=== PATIENT | male | born 1950 | race Caucasian/White ===

== ENCOUNTER → 2019-09-11 09:00 | Outpatient (BNVA) | payer MEDICARE, SELFPAY | PROVIDERS: Family Provider Family Medicine; Visit Provider Nurse Practitioner Family | DX: I10 Essential (primary) hypertension (principal); F33.0 Major depressive disorder, recurrent, mild | CPT/HCPCS: 80053; 84439; 84443 ==

== ENCOUNTER → 2020-05-10 09:27 | Outpatient (BNVA) | payer MEDICARE, SELFPAY | PROVIDERS: Family Provider Family Medicine; Visit Provider Nurse Practitioner Family | DX: I10 Essential (primary) hypertension (principal); E78.5 Hyperlipidemia, unspecified | CPT/HCPCS: 80053; 80061 ==

== ENCOUNTER → 2021-01-27 08:41 | Outpatient (BNVA) | payer MEDICARE, SELFPAY | PROVIDERS: Family Provider Family Medicine; PCP Nurse Practitioner Family; Visit Provider Nurse Practitioner Family | DX: I10 Essential (primary) hypertension (principal); E78.5 Hyperlipidemia, unspecified; F33.0 Major depressive disorder, recurrent, mild | CPT/HCPCS: 80053; 80061 ==

== ENCOUNTER → 2021-06-22 00:01 | Outpatient (BNVA) | payer MEDICARE, SELFPAY | PROVIDERS: Family Provider Family Medicine; PCP Nurse Practitioner Family; Visit Provider Nurse Practitioner Family | DX: I10 Essential (primary) hypertension (principal); K21.9 Gastro-esophageal reflux disease without esophagitis; F33.0 Major depressive disorder, recurrent, mild; E78.5 Hyperlipidemia, unspecified | CPT/HCPCS: 80053 ==

== ENCOUNTER → 2022-03-22 09:30 | Outpatient (BNVA) | payer MEDICARE, SELFPAY | PROVIDERS: Family Provider Family Medicine; PCP Nurse Practitioner Family; Visit Provider Nurse Practitioner Family | DX: I10 Essential (primary) hypertension (principal); E78.5 Hyperlipidemia, unspecified; F33.0 Major depressive disorder, recurrent, mild; K21.9 Gastro-esophageal reflux disease without esophagitis | CPT/HCPCS: 80053; 80061 ==

== ENCOUNTER 2024-03-04 21:37 | Emergency (ER) | payer MEDICARE, MEDICAID, SELFPAY ==
[2024-03-04 21:37] VITALS: BP 154/82; PULSE 110; RESP 16; TEMP 36.3; O2SAT 95
--- NOTE | 2024-03-04 21:56 | ED_ITS ---
HPI - Headache General: Chief Complaint: Headache Stated Complaint: dental pain Time Seen by Provider: 03/04/24 21:39 History of Present Illness: 73-year-old man with history of hyperten moustapha, hyperlipidemia and dental surgery yesterday presents emergency room with dental pain and a severe headache. He says he used to have migraines and this is similar to that. He is in very severe pain and crying. No focal motor deficits. No altered mental status. Related Data Home Medications Medication Instructions Recorded Confirmed aspirin 325 mg tablet 325 mg PO DAILY 08/11/19 09/20/22 Previous Rx's Medication Instructions Recorded cyclobenzaprine 10 mg tablet 10 mg PO TID PRN muscle spasm #30 08/11/19 tabs nitroglycerin 0.4 mg sublingual 0.4 mg sublingual Q5M PRN CAD #20 04/19/20 tablet tabs atorvastatin 40 mg tablet 40 mg PO DAILY #90 tabs 03/22/22 citalopram 20 mg tablet 20 mg PO DAILY #90 tabs 03/22/22 lisinopril 10 mg tablet 10 mg PO DAILY #90 tabs 03/22/22 metoprolol tartrate 50 mg tablet See Rx Instructions .Route 12/07/22 .COMPLEX #60 tabs pantoprazole 20 mg tablet,delayed See Rx Instructions .Route 12/07/22 release .COMPLEX #90 tabs hydrocodone 5 mg-acetaminophen 325 1 tab PO Q8H PRN pain #14 tabs 03/04/24 mg tablet polyethylene glycol 3350 17 17 g PO DAILY #510 grams 03/04/24 gram/dose oral powder (Miralax) Allergies Allergy/AdvReac Type Severity Reaction Status Date / Time No Known Allergies Allergy Verified 09/20/22 07:45 Review of Systems Narrative: Constitutional symptoms: Negative except as documented in HPI. Skin symptoms: Negative except as documented in HPI. Eye symptoms: Negative except as documented in HPI. ENMT symptoms: Negative except as documented in HPI. Respiratory symptoms: Negative except as documented in HPI. Cardiovascular symptoms: Negative except as documented in HPI. Gastrointestinal symptoms: Negative except as documented in HPI. Genitourinary symptoms: Negative except as documented in HPI. Musculoskeletal symptoms: Negative except as documented in HPI. Neurologic symptoms: Negative except as documented in HPI. Psychiatric symptoms: Negative except as documented in HPI. Endocrine symptoms: Negative except as documented in HPI. PFSH ED PFSH: Medical History CAD (coronary artery disease) Depression GERD (gastroesophageal reflux disease) WIYOT (hard of hearing) Hx of myocardial infarction Hyperlipidemia Hypertension Surgical History Hx of appendectomy Hx of heart artery stent Family History Father No problems noted. Mother Cancer stomach Social History Smoking and tobacco/nicotine status: current every day tobacco/nicotine user cigarettes [ Other cigarette details: 2 to 3 packs a week] Alcohol intake: current Alcohol intake frequency: few times a month Physical Exam Narrative: EXAM NARRATIVE: General: Alert, patient appears like he is in quite a bit of pain Skin: warm and dry Head: Normocephalic Neck: Trachea midline Eye: Extraocular movements are intact. Ears, nose, mouth and throat: Oral mucosa moist Respiratory: Respirations are non-labored Musculoskeletal: Normal ROM Neurological: Alert and oriented, No focal neurological deficit observed. Psychiatric: Cooperative, tearful from pain Course Vital Signs: Vital signs: Vital Signs Temperature 97.4 F L 03/04/24 21:37 Pulse Rate 110 H 03/04/24 21:37 Respiratory Rate 16 03/04/24 23:10 Blood Pressure 154/82 03/04/24 21:37 Pulse Oximetry 94 03/04/24 23:10 Oxygen Delivery Me thod Room Air 03/04/24 21:37 MDM - Headache Medical Decision Making CT head: No acute intracranial process. no intracranial hemorrhage, no evidence of infarct. no evidence of acute fracture.This was reviewed and interpreted by myself the ER physician. Assessment and plan: Migraine headache . Dental pain ? Dilaudid, oxycodone, Reglan, Norflex, Zofran and fluids. - Discharged home - Discussed plan with patient. Answered any questions. - Evaluation and treatment of this problem were appropriate in the emergency setting. Lab Data Radiology Impressions Head CT 03/04/24 22:43 IMPRESSION: No acute intracranial findings. All radiology interpretation(s) finalized by discharge Discharge Plan Discharge Patient Disposition: Home Clinical Impression: Migraine, Post-operative pain Condition: Stable Prescriptions: New hydrocodone-acetaminophen 5-325 mg tablet 1 tab PO Q8H PRN (Reason: pain) Qty: 14 0RF Rx Instructions: Take 1/2 to 1 tab every 8 hours as needed for pain Miralax 17 gram/dose powder 17 g PO DAILY Qty: 510 0RF Rx Instructions: Take 1 scoop daily while taking pain medications. No Action aspirin 325 mg tablet 325 mg PO DAILY cyclobenzaprine 10 mg tablet 10 mg PO TID PRN (Reason: muscle spasm) Qty: 30 2RF nitroglycerin 0.4 mg tablet, sublingual 0.4 mg SUBLINGUAL Q5M PRN (Reason: CAD) Qty: 20 0RF atorvastatin 40 mg tablet 40 mg PO DAILY Qty: 90 1RF citalopram 20 mg tablet 20 mg PO DAILY Qty: 90 1RF lisinopril 10 mg tablet 10 mg PO DAILY Qty: 90 1RF pantoprazole 20 mg tablet,delayed release (DR/EC) See Rx Instructions .ROUTE .COMPLEX Qty: 90 0RF Dose Instruction: Take 1 tablet by mouth once daily Rx Instructions: Take 1 tablet by mouth once daily Pt needs an appt for more refills metoprolol tartrate 50 mg tablet See Rx Instructions .ROUTE .COMPLEX Qty: 60 0RF Dose Instruction: Take 1 tablet by mouth twice daily Rx Instructions: Take 1 tablet by mouth twice daily Pt needs an appt for more refills Discharge Orders: Discharge ED (Routine); Ordered 03/04/24 Ordered By: Tess Vasquez Referrals: Dimple Ybarra FNP [Primary Care Provider] - Edy Urena [Family Provider] - Discharge Diet: Advance as tolerated Discharge Activity: Increase activity as tolerated Patient Instructions: Opioid Safety, Pain Management Activity Restrictions/Additional Instructions: Thank you for choosing [facility] for your healthcare needs today. Please realize this is an emergency room and that we are providing you with a medical screening exam and this may not be complete and all inclusive of all the testing and or work up that you may need to determine your ailment or severity of your illness. You have been screened and evaluated and felt safe for discharge. Health conditions do change or evolve sometimes and as such it is important that you follow up with your Primary Doctor to be re checked, 3-5 days is a general good time frame for follow up. 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
[2024-03-04 22:17] VITALS: RESP 16; O2SAT 98
[2024-03-04] MEDS: oxyCODONE-APAP 5-325 mg Tablet 1 TAB PO (22:17)
[2024-03-04] MEDS: ondansetron 2 mg/ML SDV 2 mL 4 MG IVP (22:18)
[2024-03-04] MEDS: metoclopramide 5 mg/mL SDV 2 mL 10 MG IVP (22:18)
[2024-03-04] MEDS: diphenhydrAMINE 50 mg/mL SDV 1mL 25 MG IVP (22:19)
[2024-03-04] MEDS: sodium chloride 0.9% 1,000 ML 999 ML IV (22:23)
--- NOTE | 2024-03-04 22:43 | CTR_ITS ---
PROCEDURE INFORMATION: Exam: CT Head Without Contrast Exam date and time: 03/04/2024 10:49 PM Age: 73 years old Clinical indication: Pain; Headache; Additional info: Worst headache of life TECHNIQUE: Imaging protocol: Computed tomography of the head without contrast. Radiation optimization: All CT scans at this facility use at least one of these dose optimization techniques: automated exposure control; mA and/or kV adjustment per patient size (includes targeted exams where dose is matched to clinical indication); or iterative reconstruction. COMPARISON: No relevant prior studies available. RADIATION DOSE METRICS: Total DLP (mGy-cm): 1266.73 FINDINGS: Brain: No acute intracranial hemorrhage, mass effect or midline shift. Encephalomalacia at the right parietal, temporal and occipital regions. No evidence of acute transcortical infarct. White matter hypodensities most likely from chronic microangiopathy. Cerebral ventricles: Ex vacuo dilatation of the ventricles due to volume loss. Paranasal sinuses: Visualized sinuses are unremarkable. No fluid levels. Mastoid air cells: Visualized mastoid air cells are well aerated. Bones: No acute bony findings. Soft tissues: Unremarkable. CT/CT head wo con* [id number] IMPRESSION: No acute intracranial findings.
[2024-03-04 23:10] VITALS: RESP 16; O2SAT 94
[2024-03-04] MEDS: orphenadrine 30 mg/mL Inj 2 mL IVP (23:10)
[2024-03-04] MEDS: HYDROmorphone 1 mg/mL INJ 1 mL IVP (23:10)
[2024-03-05 00:20] VITALS: BP 151/90; PULSE 107; O2SAT 91
== END 2024-03-05 00:21 | disposition home or self-care (01) ==
PROVIDERS: Emergency Provider Emergency Medicine; Family Provider Family Medicine; PCP Nurse Practitioner Family
DX: G43.909 Migraine, unspecified, not intractable, without status migrainosus (principal); G89.18 Other acute postprocedural pain; Z79.82 Long term (current) use of aspirin; F17.210 Nicotine dependence, cigarettes, uncomplicated; I25.10 Atherosclerotic heart disease of native coronary artery without angina pectoris; I25.2 Old myocardial infarction; E78.5 Hyperlipidemia, unspecified; I10 Essential (primary) hypertension
CPT/HCPCS: 70450; 96361; 96374; 96375; 99285; J1170; J1200; J2360; J2405; J2765; J7030

== ENCOUNTER 2025-03-31 15:47 | Observation (INO) | payer MEDICARE, SELFPAY ==
[2025-03-31] VITALS (21 sets, daily range): BP systolic 76–96; BP diastolic 53–72; PULSE 65–94; RESP 14–31; TEMP 36.4; O2SAT 92–99; BMI 21.7
--- NOTE | 2025-03-31 15:51 | ECG_ITS ---
Secured Mail Test Date: 2025-03-31 Pat Name: Philippe Dahl Department: Room: Gender: Male Spinning Lathe Operator: : 1950 Requested By: Tess Light Order Number: [id number] Dorman MD: MAGDALENA FREEMAN Measurements Intervals [place] Rate: 63 P: 262 RI: 203 QRS: 124 QRSD: 113 T: 181 QT: 454 QTc: 466 Interpretive Statements ELECTRONIC ATRIAL PACEMAKER RIGHT AXIS DEVIATION [QRS AXIS > 100] LOW QRS VOLTAGE IN EXTREMITY LEADS [QRS DEFLECTION < 0.5 mV IN LIMB LEADS] ANTEROSEPTAL MYOCARDIAL INFARCTION , OF INDETERMINATE AGE [40+ ms Q WAVE IN V1-V4] No previous ECG available for comparison Electronically Signed On 04-01-2025 16:47:22 CDT by MAGDALENA FREEMAN [email or web address]
--- NOTE | 2025-03-31 15:51 | XRR_ITS ---
PROCEDURE INFORMATION: Exam: XR Chest Exam date and time: 03/31/2025 3:56 PM Age: 74 years old Clinical indication: Other: Weakness; Prior surgery; Surgery date: 6+ months; Surgery type: Open heart pacer TECHNIQUE: Imaging protocol: Radiologic exam of the chest. Views: 1 view. COMPARISON: No relevant prior studies available. FINDINGS: Tubes, catheters and devices: Dual lead cardiac pacer. Status post median sternotomy and CABG. Lungs: See Pleural spaces finding. Pleural spaces: Mild left basilar opacity with small left pleural effusion. Heart/Mediastinum: Unremarkable. No cardiomegaly. Bones/joints: See Tubes, catheters and devices finding. XR/XR chest 1V portable [id number] IMPRESSION: Left basilar opacity with small left pleural effusion. Findings could represent pneumonia.
--- NOTE | 2025-03-31 15:51 | ED_ITS ---
HPI - Syncope 2 General: Chief Complaint: Arrhythmia/Palpitations Stated Complaint: Pacemaker went off w/syncope Time Seen by Provider: 03/31/25 15:47 History of Present Illness: 74-year-old man with a history of pacema ker placement, hyperlipidemia, chronic low blood pressure who presents emergency room after having a near syncopal episode. He was getting out of his car at [facility] and suddenly became very lightheaded and went down. He says he caught himself with his hand but he does not remember after that till he woke up. EMS reports his blood pressure was low when they picked him up. He does not have any altered mental status or focal motor deficits. He does report he has had a lot of cough and its gotten worse recently he has been taking some Mucinex. No known fever. No chest pain. He says when he went down he felt like he had a shock from his pacemaker. Related Data Home Medications ?Medication ?Instructions ?Recorded ?Confirmed aspirin 325 mg tablet 325 mg PO DAILY 08/11/19 Previous Rx's ?Medication ?Instructions ?Recorded cyclobenzaprine 10 mg tablet 10 mg PO TID PRN muscle s pasm #30 08/11/19 tabs nitroglycerin 0.4 mg sublingual 0.4 mg sublingual Q5M PRN CAD #20 04/19/20 tablet tabs atorvastatin 40 mg tablet 40 mg PO DAILY #90 tabs 02/23 03/15 citalopram 20 mg tablet 20 mg PO DAILY #90 tabs 02/23 03/15 lisinopril 10 mg tablet 10 mg PO DAILY #90 tabs 02/23 03/15 metoprolol tartrate 50 mg tablet See Rx Instructions . Route 12/07/22 .COMPLEX #60 tabs pantoprazole 20 mg tablet,delayed See Rx Instructions .Route 12/07/22 release .COMPLEX #90 tabs hydrocodone 5 mg-acetaminophen 325 1 tab PO Q8H PRN pa in #14 tabs 03/04/24 mg tablet polyethylene glycol 3350 17 17 g PO DAILY #510 grams 0 03/04/24 gram/dose oral powder (Miralax) Allergies Allergy/AdvReac Type Severity Reaction Status Date / Time No Known Allergies Allergy Verified 09/20/22 07:45 Review of Systems 2 Narrative: Constitutional symptoms: Negative except as documented in HPI. Skin symptoms: Negative except as documented in HPI. Eye symptoms: Negative except as documented in HPI. ENMT symptoms: Negative except as documented in HPI. Respiratory symptoms: Negative except as documented in HPI. Cardiovascular symptoms: Negative except as documented in HPI. Gastrointestinal symptoms: Negative except as documented in HPI. Genitourinary symptoms: Negative except as documented in HPI. Musculoskeletal symptoms: Negative except as documented in HPI. Neurologic symptoms: Negative except as documented in HPI. Psychiatric symptoms: Negative except as documented in HPI. Endocrine symptoms: Negative except as documented in HPI. PFSH ED 2 PFSH: Medical History (Updated 03/31/25 @ 18:36 by Tess Vasquez MD) GERD (gastroesophageal reflux disease) [place] (hard of hearing) CAD (coronary artery disease) Hx of myocardial infarction Hyperlipidemia Depression Hypertension Surgical History Hx of appendectomy Hx of heart artery stent Family History Father No problems noted. Mother Cancer stomach Social History Smoking and tobacco/nicotine status: current every day tobacco/nicotine user cigarettes [ Other cigarette details: 2 to 3 packs a week] Alcohol intake: current Alcohol intake frequency: few times a month Physical Exam 2 Narrative: EXAM NARRATIVE: General: Alert, no acute distress. Skin: Warm, dry. Head: Normocephalic, atraumatic. Neck: Supple, trachea midline. Eye: Extraocular movements are intact. Ears, nose, mouth and throat: mucosa moist. Cardiovascular: Regular, Normal peripheral perfusion. Respiratory: Lungs are clear to auscultation, respirations are non-labored, breath sounds are equal, Symmetrical chest wall expansion. Gastrointestinal: Soft, Nontender, Non distended Musculoskeletal: Normal ROM, no deformity. Neurological: Alert and oriented, No focal neurological deficit observed. Psychiatric: Cooperative, appropriate mood & affect. Course 2 Vital Signs: Vital signs: Vital Signs Temperature 97.6 F 03/31/25 15:51 Pulse Rate 85 03/31/25 18:23 Respiratory Rate 16 03/31/25 18:23 Blood Pressure 91/61 03/31/25 18:23 Pulse Oximetry 95 03/31/25 18:23 Oxygen Delivery Me thod Room Air 03/31/25 16:45 MDM - Syncope Medical Decision Making Medical decision making: Differential diagnosis including but not limited to and based on the above HPI, review of systems and physical exam in this patient with syncope: Vasovagal, orthostatics hypotension, cardiac dysrhythmia, myocardial infarction, infection and hypotension, Orders placed to evaluate differential diagnosis based on the above differential, HPI and physical exam EKG: Time 1552. Rate 63. Normal sinus rhythm, No ST-T changes, no ectopy, paced rhythm, this was reviewed and interpreted by myself the emergency room physician at 1556 Chest x-ray: Left basilar opacity with small left pleural effusion which could represent a pneumonia. This was reviewed and interpreted by myself the emergency room physician. I also reviewed the radiology report. CT of the chest: This was ordered secondary to abnormal chest x-ray. This shows small bilateral pleural effusions with lower lobe atelectasis and no definite pneumonia. However with the patient having a cough and possibility of pneumonia I think I have no choice but to treat him as sepsis empirically. This was reviewed and interpreted by myself the emergency room physician. I also reviewed the radiology report. Lab Review: Laboratory results were reviewed and interpreted by myself the emergency room physician. No leukocytosis. No anemia. Lactic acid is elevated at over 4 initially and down to mid threes. Initial troponin was 27 and repeat was 22. With a delta of 5 which is not significant. Urinalysis is negative for infection. I reviewed the patient's medical record. Reexamination: Patient continues to have fairly soft blood pressures after a liter and a half. In the lower 80s at the time of completion of his documentation. Consultation: I spoke with Dr. Delgadillo who is on-call for the hospitalist service who agrees to admission. Assessment and plan: Hypotension Syncope Possible sepsis ?Possible lung source but CT is not definitive. Urine is negative. - 1.5 L normal saline bolus in the emergency room. I have been giving limited amounts as he has pleural effusions and quite elevated proBNP and no definite sepsis source at this point. -Broad-spectrum antibiotics were administered. Meropenem and Zyvox. -Sepsis quality measures. -Lactic acid with a reflex was ordered. -Blood cultures were ordered. ?I reevaluated the patient's volume status after sepsis fluids were given. -I discussed the patient with the hospitalist on-call who is admitting the patient. - Discussed findings and plan with patient. Answered any questions. - All laboratory values were reviewed and interpreted personally by myself, the ER physician - All imaging was reviewed and interpreted personally by myself, the ER physician. - Evaluation and treatment of this problem were appropriate in the emergency setting Critical Care: -I spent a total of 48 minutes of critical care time managing the patient, independent of any other practitioner. -The time involved in the performance of separately reportable procedures was not counted towards critical care time. Lab Data 03/31/25 15:50 03/31/25 15:50 Radiology Impressions Chest X-Ray 03/31/25 15:51 IMPRESSION: Left basilar opacity with small left pleural effusion. Findings could represent pneumonia. Chest CT 03/31/25 16:52 IMPRESSION: 1. Small bilateral pleural effusions vkor-puuhpbr-wbde-right with lower lobe atelectasis. No definite pneumonia. 2. Status post cardiac surgery with postsurgical change versus fluid collection in the retrosternal region and along the ascending aorta. Please correlate with surgical history. 3. Other findings as detailed above. COMMENTS: The presence of pulmonary emphysema on CT is an independent risk factor for lung cancer. In the absence of a history or active diagnosis of lung cancer, it is recommended that this patient with emphysema be evaluated for enrollment in a low dose CT lung cancer screening program. Laboratory Results WBC 7.38 10^3/uL (3.29-11.43) 03/31/25 15:50 RBC 4.09 10^6/uL (3.85-5.65) 03/31/25 15:50 Hgb 11.70 g/dL (11.27-16.99) 03/31/25 15:50 Hct 37.3 % (37-53) 03/31/25 15:50 MCV 91.2 fl (82-101) 03/31/25 15:50 MCH 28.6 pg (27-33) 03/31/25 15:50 MCHC 31.4 g/dL (30-55) 03/31/25 15:50 RDW 16.9 % (12.1-15.1) H 03/31/25 15:50 Plt Count 201 10^3/cmm (157-399) 03/31/25 15:50 MPV 11.3 fL (7.4-10.4) H 03/31/25 15:50 Neut % (Auto) 73.8 % 03/31/25 15:50 Lymph % (Auto) 14.9 % 03/31/25 15:50 [place] % (Auto) 9.2 % 03/31/25 15:50 Eos % (Auto) 1.4 % 03/31/25 15:50 Baso % (Auto) 0.4 % 03/31/25 15:50 Neut # (Auto) 5.45 10^3/uL (1.8-7.7) 03/31/25 15:50 Lymph # (Auto) 1.1 10^3/uL (0.8-4.8) 03/31/25 15:50 [place] # (Auto) 0.7 10^3/uL (0.2-0.9) 03/31/25 15:50 Eos # (Auto) 0.1 10^3/uL (0.0-0.8) 03/31/25 15:50 Baso # (Auto) 0.0 10^3/uL (0.0-0.1) 03/31/25 15:50 Nucleated RBC % (auto) 0 % 03/31/25 15:50 Nucleated RBCs # 0.0 /100WBC 03/31/25 15:50 Sodium 137 mmol/L (136-145) 03/31/25 15:50 Potassium 4.0 mmol/L (3.5-5.1) 03/31/25 15:50 Chloride 100 mmol/L (98-107) 03/31/25 15:50 Carbon Dioxide 25 mmol/L (22-29) 03/31/25 15:50 Anion Gap 16.0 (5-19) 03/31/25 15:50 BUN 13 mg/dL (8-23) 03/31/25 15:50 Creatinine 0.8 mg/dL (0.7-1.2) 03/31/25 15:50 GFR Calculation Not Reportable 03/31/25 15:50 Glucose 102 mg/dL (65-115) 03/31/25 15:50 Calculated Osmolality 284 mOsm/kg (285-295) L 03/31/25 15:50 Lactic Acid 4.1 mmol/L (0.5-2.2) H* 10/08/25 15:50 Lactic Acid (Sepsis) 3.2 mmol/L (0.5-2.2) H 03/31/25 17:48 Calcium 8.9 mg/dL (8.5-10.5) 03/31/25 15:50 Total Bilirubin 0.7 mg/dL (0.15-1.2) 03/31/25 15:50 AST 14 U/L (0-40) 03/31/25 15:50 ALT 11 U/L (0-41) 03/31/25 15:50 Alkaline Phosphatase 115 U/L (40-130) 03/31/25 15:50 Troponin T Baseline 27 ng/L (0-15) H 03/31/25 15:50 Troponin T 120 Minute 21.94 ng/L (0-15) H 03/31/25 17:48 Delta Troponin T -5.06 ABS# (0-10) L 03/31/25 17:48 NT-Pro-B Natriuret Pep 5957 pg/mL (0-125) H 03/31/25 15:50 Total Protein 5.6 g/dL (6.6-8.7) L 03/31/25 15:50 Albumin 3.6 g/dL (3.5-5.2) 03/31/25 15:50 Globulin 2.0 g/dL (1.3-4.6) 03/31/25 15:50 Urine Color Yellow (Yellow) 03/31/25 17:45 Urine Appearance Clear (CLEAR) 03/31/25 17:45 Urine pH 5.5 (5-7) 03/31/25 17:45 Ur Specific [place] 1.028 (1.005-1.030) 03/31/25 17:45 Urine Protein Negative (Negative) 03/31/25 17:45 Urine Glucose (UA) 3+ (Normal) H 03/31/25 17:45 Urine Ketones Negative (Negative) 03/31/25 17:45 Urine Blood Negative (Negative) 03/31/25 17:45 Urine Nitrate Negative (Negative) 03/31/25 17:45 Urine Bilirubin Negative (Negative) 03/31/25 17:45 Urine Urobilinogen 1.0 mg/dL (Negative) 03/31/25 17:45 Ur Leukocyte Esterase Negative (Negative) 03/31/25 17:45 Amorphous Sediment Not Reportable 03/31/25 17:45 All radiology interpretation(s) finalized by discharge Discharge Plan Discharge Patient Disposition: Admitted As Inpatient Admit Provider: Sung Holman Clinical Impression: Hypotension, Syncope, Sepsis Condition: Stable Coding Level of Care Code ED [employer] for [employer]
[2025-03-31 16:14] LABS: Hematocrit 37.3 % (37-53); Hemoglobin 11.70 g/dL (11.27-16.99); Mean Corpuscular HGB Conc 31.4 g/dL (30-55); Mean Corpuscular Hemoglobin 28.6 pg (27-33); Mean Corpuscular Volume 91.2 fl (82-101); Nucleated Red Blood Cells % 0 %; Platelet Count 201 10^3/cmm (157-399); Red Blood Count 4.09 10^6/uL (3.85-5.65); White Blood Count 7.38 10^3/uL (3.29-11.43)
--- NOTE | 2025-03-31 16:15 | PC.NURSE ---
PT HYPOTENSIVE 75/47, PT BLOOD PRESSURE CUFF CHECKED, PT BP ACCURATE. DR. PARK NOTIFIED OF PT BP, VERBAL ORDER GIVEN FOR 1L NS BOLUS.
[2025-03-31 16:32] LABS: Lactic Sepsis W/Reflex 4.1 mmol/L (0.5-2.2)
[2025-03-31 16:39] LABS: Troponin(5th) Baseline 27 ng/L (0-15)
--- NOTE | 2025-03-31 16:45 | PC.NURSE ---
pt refusing straight catheter, provided with urinal for urine sample.
--- NOTE | 2025-03-31 16:52 | CTR_ITS ---
PROCEDURE INFORMATION: Exam: CT Chest Without Contrast; Diagnostic Exam date and time: 03/31/2025 5:24 PM Age: 74 years old Clinical indication: Abnormal findings; Abnormal radiologic exam of lung or chest; Prior surgery; Surgery date: 6+ months; Surgery type: Heart stent, pacemaker; -pt believes his defibilator went off causing him to have a syncopal episode. ; Additional info: Abnormal chest x-ray TECHNIQUE: Imaging protocol: Diagnostic computed tomography of the chest without contrast. Radiation optimization: All CT scans at this facility use at least one of these dose optimization techniques: automated exposure control; mA and/or kV adjustment per patient size (includes targeted exams where dose is matched to clinical indication); or iterative reconstruction. COMPARISON: CR XR chest 1V portable [id number] 03/31/2025 3:56 PM RADIATION DOSE METRICS: Total DLP (mGy-cm): 332.91 FINDINGS: Tubes, catheters and devices: Status post median sternotomy and cardiac surgery with cardiac pacer. Lungs: There is moderate emphysema. Mild bilateral lower lobe atelectasis posteriorly. No pulmonary consolidation is seen. Small focal density is seen in the right upper lobe anteriorly which is subpleural. Pleural spaces: Small bilateral pleural effusions, gvum-mjorsrm-veia-right. Heart: Unremarkable. No cardiomegaly. No pericardial effusion. Coronary arteries: Extensive coronary calcifications. Lymph nodes: Slightly prominent mediastinal lymph nodes are seen. Vasculature: In the anterior mediastinum there is a rounded or tubular low-density lesion which appears to communicate or abut the ascending aorta and extends superiorly to the level of the sternal manubrium. It is unclear if this represents postsurgical change versus a fluid collection. Please correlate with surgical history. A small amount of gas is seen adjacent to the upper sternum and right clavicle medially, which may be related to recent surgery. Diaphragm: Moderate hiatal hernia. Bones/joints: See Vasculature finding. Soft tissues: Unremarkable. CT/CT chest wo con [id number] IMPRESSION: 1. Small bilateral pleural effusions wwzw-ldzncoz-oosg-right with lower lobe atelectasis. No definite pneumonia. 2. Status post cardiac surgery with postsurgical change versus fluid collection in the retrosternal region and along the ascending aorta. Please correlate with surgical history. 3. Other findings as detailed above. COMMENTS: The presence of pulmonary emphysema on CT is an independent risk factor for lung cancer. In the absence of a history or active diagnosis of lung cancer, it is recommended that this patient with emphysema be evaluated for enrollment in a low dose CT lung cancer screening program.
[2025-03-31] MEDS: linezolid premix 600 MG/300 ML PREMIX 300 MG IV (17:03)
[2025-03-31 17:06] LABS: Alanine Aminotransferase 11 U/L (0-41); Albumin Level 3.6 g/dL (3.5-5.2); Alkaline Phosphatase 115 U/L (40-130); Anion Gap 16.0 (5-19); Aspartate Amino Transferase 14 U/L (0-40); Blood Urea Nitrogen 13 mg/dL (8-23); Calcium 8.9 mg/dL (8.5-10.5); Carbon Dioxide 25 mmol/L (22-29); Chloride 100 mmol/L (98-107); Creatinine Clr Calc Pharmacy 82.7669; Globulin 2.0 g/dL (1.3-4.6); Glucose 102 mg/dL (65-115); NT Pro B Type Natriuretic Pept 5957 pg/mL (0-125); Osmolality Calculated 284 mOsm/kg (285-295); Potassium 4.0 mmol/L (3.5-5.1); Sodium 137 mmol/L (136-145); Total Protein 5.6 g/dL (6.6-8.7)
--- NOTE | 2025-03-31 17:51 | ECG_ITS ---
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1950 Requested By: Tess Light Order Number: [id number] Dandy MD: MAGDALENA FREEMAN Measurements Intervals [place] Rate: 84 P: 76 RI: 178 QRS: 166 QRSD: 121 T: 90 QT: 426 QTc: 506 Interpretive Statements SINUS RHYTHM WITH OCCASIONAL VENTRICULAR PREMATURE COMPLEXES RIGHT AXIS DEVIATION [QRS AXIS > 100] ANTEROSEPTAL MYOCARDIAL INFARCTION , OF INDETERMINATE AGE [40+ ms Q WAVE IN V1-V4] Compared to ECG 03/31/2025 15:52:27 Ventricular premature complex(es) now present Atrial-paced complex(es) or rhythm no longer present Myocardial infarct finding still present Electronically Signed On 04-01-2025 16:52:20 CDT by MAGDALENA FREEMAN [id number]
[2025-03-31 17:55] LABS: Reflex Lactate Order REFLEX LACTIC ORDERD
[2025-03-31 17:56] LABS: Glucose Urine UA 3+ (Normal); Nitrate Urine Negative (Negative); Specific Gravity, Urine 1.028 (1.005-1.030)
[2025-03-31 18:26] LABS: Lactic Acid level (Lactate) 3.2 mmol/L (0.5-2.2)
[2025-03-31 18:30] LABS: Troponin 5 2HR 21.94 ng/L (0-15)
[2025-03-31 18:31] LABS: Troponin 5 2HR Delta -5.06 ABS# (0-10)
--- NOTE | 2025-03-31 18:33 | PM.HP ---
Providers/Chief Complaint Admitting Physician: Sung Holman MD Primary Care Provider: YAMILA Almeida Chief Complaint: Syncope History of Present Illness Philippe Dahl is a 74 year old male presenting after a syncopal event. PMHx is significant for relatively recent CABG in July and he had PM/AICD placed about 1-2 months ago. He sees cardiology in [place]. He was walking in the [facility] parking lot when be became lightheaded and stumbled backwards and was able to ease himself down on the pavement. He denies any head injury, he put the palm of his left hand on the pavement and has abrasion on the hypothenar eminence. He reports brief LOC, his girlfriend woke him up and he regained consciousness and was brought to the ER for further evaluation. He states he is compliant with his heart failure medications. Blood pressure is a little low on arrival and EMS also reported it to be low. Review of Systems Const: Denies: fever(s), chills or body aches Eyes: Denies: change in vision ENMT: Denies: throat pain or uvular edema Card: Reports: lightheadedness and syncope; Denies: chest pain or palpitations Resp: Denies: dyspnea, productive cough or chest congestion GI: Denies: abdominal pain, nausea or vomiting : Denies: flank pain or difficulty urinating Musc: Denies: neck pain, back pain or extremity pain Skin/Breast: Denies: rash, pruritus or erythema Neuro: Denies: headache(s), numbness in extremities, weakness in extremities or Slurred speech present Psych: Denies: anxiety or depression Medications/Allergies Home Medications ?Medication ?Instructions ?Recorded ?Confirmed ?Last Taken ?Type aspirin 325 mg tablet 325 mg PO DAILY 08/11/19 09/20/22 Unknown History cyclobenzaprine 10 mg tablet 10 mg PO TID PRN muscle spasm #08/11/19 09/20/22 Unknown Rx tabs nitroglycerin 0.4 mg sublingual 0.4 mg sublingual Q5M PRN CAD #04/19/20 09/20/22 Unknown Rx tablet tabs atorvastatin 40 mg tablet 40 mg PO DAILY #90 tabs 03/22/22 09/20/22 Unknown Rx citalopram 20 mg tablet 20 mg PO DAILY #90 tabs 03/22/22 09/20/22 Unknown Rx lisinopril 10 mg tablet 10 mg PO DAILY #90 tabs 03/22/22 09/20/22 Unknown Rx metoprolol tartrate 50 mg tablet See Rx Instructions .Route 12/07/22 Unknown Rx .COMPLEX #60 tabs pantoprazole 20 mg tablet,delayed See Rx Instructions .Route 12/07/22 Unknown Rx release .COMPLEX #90 tabs hydrocodone 5 mg-acetaminophen 325 1 tab PO Q8H PRN pain #14 tabs 03/04/24 Unknown Rx mg tablet polyethylene glycol 3350 17 17 g PO DAILY #510 grams 03/04/24 Unknown Rx gram/dose oral powder (Miralax) Allergies Allergy/AdvReac Type Severity Reaction Status Date / Time No Known Allergies Allergy Verified 09/20/22 07:45 PFSH Acute PFSH: Medical History (Updated 03/31/25 @ 18:41 by Sung Holman MD) Afib COPD (chronic obstructive pulmonary disease) GERD (gastroesophageal reflux disease) [place] (hard of hearing) CAD (coronary artery disease) Hx of myocardial infarction Hyperlipidemia Depression Hypertension Surgical History (Updated 03/31/25 @ 18:41 by Sung Holman MD) Hx of CABG Hx of appendectomy Hx of heart artery stent Family History Father No problems noted. Mother Cancer stomach Social History Smoking and tobacco/nicotine status: current every day tobacco/nicotine user cigarettes [ Other cigarette details: 2 to 3 packs a week] Alcohol intake: current Alcohol intake frequency: few times a month Vitals/I&O/Wt Last Vital Signs Temp 97.6 F 03/31/25 15:51 Pulse 85 03/31/25 18:23 Resp 16 03/31/25 18:23 BP 91/61 03/31/25 18:23 Pulse Ox 95 03/31/25 18:23 O2 Del Method Room Air 03/31/25 16:45 03/31/25 03/31/25 03/31/25 06:59 14:59 22:59 Intake Total 1800 / 1800 Balance 1800 / 1800 Weight last 48 hrs Weight 65.771 kg Physical Exam Const: COMMON NORMALS: no acute distress, average body habitus and patient oriented x3 HENMT: COMMON NORMALS: normocephalic and atraumatic Eye: COMMON NORMALS: Equal, round and reactive pupils present and EOMs intact bilaterally Neck/C-Spine: COMMON NORMALS: full ROM, no lymphadenopathy and supple Chest: COMMONS NORMALS: normal palpation of entire chest wall Resp: COMMON NORMALS: normal respiratory effort, No retractions, No use of accessory muscles and clear to auscultation bilaterally Cardio: COMMON NORMALS: regular rate, regular rhythm, S1 normal heart sound present, S2 normal heart sound present, No gallops present (Cardio), No murmurs present (Cardio), No rub (Cardio) and Peripheral pulses 2+ throughout GI: COMMON NORMALS: Soft to palpation, non-tender, No hepatosplenomegaly present and no bruits Extremity: COMMON NORMALS: full ROM, no clubbing, cyanosis or edema and no pedal edema Neuro: COMMON NORMALS: patient oriented x3 and moves all extremities Psych: COMMON NORMALS: cooperative, normal affect and speech normal Skin: NARRATIVE SKIN EXAM: abrasion on hypothenar eminence of left hand. Data 03/31/25 15:50 03/31/25 15:50 Micro: Microbiology 03/31/25 16:21 Blood Culture - Preliminary Blood SPECIMEN COLLECTED 03/31/25 16:19 Blood Culture - Preliminary Blood SPECIMEN COLLECTED A&P Assessment and plan 1. Syncope: 2. Hypotension: 3. CAD (coronary artery disease): Plan: 74 year old male presenting after syncopal episode Syncope - likely related to low blood pressure with his HF medications. - monitor on tele - no need for carotid studies with syncope - may need to reduce some of his HF medications if BP is not tolerating. HF CVD s/p CABG in Jul. of this year AICD/PPM in place - HF likely 2/2 ischemic cardiomyopathy given history - unknown EF, no prior echos - he does not appear fluid overloaded currently - echo pending. ?PNA - no definite PNA on CT chest, doubt infection currently - patient is afebrile, no leukocytosis - lactate is nonspecific - UA is clear PPx: lovenox Diet: HH Disposition - monitor overnight and can likely DC in the AM if no other issues - follow up with cardiology after discharge for ongoing medication optimization, BP may be somewhat low on his HF regimen. PDMP PDMP Reviewed: Not Reviewed Attestations Medical Necessity Statement*: Observation admission for syncope, HF. Time Spent in Patient Care: 16 - 35 minutes (>than 50% of time spent in counselling and/or direct pt care on unit). Coding Level of Care Code Acute Code for Chg Fwd Diagnoses Syncope R55 Hypotension I95.9 CAD (coronary artery disease) I25.10
[2025-03-31 18:45] LABS: Respiratory Syncytial Virus Ce NEGATIVE (Negative); SARS-CoV-2 PCR NEGATIVE (Negative)
--- NOTE | 2025-03-31 21:51 | ECG_ITS ---
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1950 Requested By: Tess Light Order Number: [id number] Reading MD: MAGDALENA FREEMAN Measurements Intervals [place] Rate: 85 P: 85 [place]: 159 QRS: 130 QRSD: 117 T: 90 QT: 414 QTc: 495 Interpretive Statements SINUS RHYTHM WITH FREQUENT VENTRICULAR PREMATURE COMPLEXES RIGHT AXIS DEVIATION [QRS AXIS > 100] LOW QRS VOLTAGE IN EXTREMITY LEADS [QRS DEFLECTION < 0.5 mV IN LIMB LEADS] ANTEROSEPTAL MYOCARDIAL INFARCTION , OF INDETERMINATE AGE [40+ ms Q WAVE IN V1-V4] Compared to ECG 03/31/2025 17:15:24 Low QRS voltage now present Myocardial infarct finding still present Electronically Signed On 04-01-2025 16:52:24 CDT by MAGDALENA FREEMAN [id number]
[2025-03-31 22:17] LABS: Troponin 5 6HR 23.44 ng/L (0-15)
[2025-03-31 22:21] LABS: Troponin 5 6HR Delta -3.56 ng/L (0-12)
[2025-04-01] VITALS (28 sets, daily range): BP systolic 76–106; BP diastolic 52–74; PULSE 73–100; RESP 12–33; TEMP 36.6–36.9; O2SAT 90–98
[2025-04-01 04:17] LABS: Hematocrit 34.4 % (37-53); Hemoglobin 11.00 g/dL (11.27-16.99); Mean Corpuscular HGB Conc 32.0 g/dL (30-55); Mean Corpuscular Hemoglobin 28.9 pg (27-33); Mean Corpuscular Volume 90.3 fl (82-101); Nucleated Red Blood Cells % 0 %; Platelet Count 166 10^3/cmm (157-399); Red Blood Count 3.81 10^6/uL (3.85-5.65); White Blood Count 6.06 10^3/uL (3.29-11.43)
[2025-04-01 04:40] LABS: Anion Gap 15.9 (5-19); Blood Urea Nitrogen 12 mg/dL (8-23); Calcium 8.7 mg/dL (8.5-10.5); Carbon Dioxide 23 mmol/L (22-29); Chloride 105 mmol/L (98-107); Creatinine Clr Calc Pharmacy 83.3666; Glucose 93 mg/dL (65-115); Magnesium 2.0 mg/dL (1.7-2.3); Osmolality Calculated 289 mOsm/kg (285-295); Potassium 3.9 mmol/L (3.5-5.1); Sodium 140 mmol/L (136-145)
--- NOTE | 2025-04-01 09:54 | PC.NURSE ---
Provider is updated about his blood pressures have been low. last 2 were. 76/57 HR of 80 and 80/54 HR of 62. No symptoms. No new orders given at this time.
--- NOTE | 2025-04-01 11:29 | P.PN_ITS ---
Subjective 2 Subjective: Low BP over night. Vitals/I&O/Wt Last Vital Signs Temp 98.0 F 04/01/25 07:50 Pulse 86 04/01/25 11:22 Resp 18 04/01/25 11:20 BP 76/57 04/01/25 09:31 Pulse Ox 92 04/01/25 11:20 O2 Del Method Room Air 04/01/25 11:20 03/31/25 04/01/25 04/01/25 22:59 06:59 14:59 Intake Total 1800 / 1800 100 / 1900 Output Total 475 / 475 0 / 475 450 / 450 Balance 1325 / 1325 100 / 1425 -450 / -450 Weight last 48 hrs Weight 67.041 kg Weight 68.606 kg Weight 65.771 kg Physical Exam 2 Narrative: Physical Exam Const: no acute distress, average body habi tus and patient or iented x3 HENMT: normocephalic and atraumatic Eye: Equal, round and r eactive pupils pre sent and EOMs inta ct bilaterally Neck/C-Spine: full ROM, no lymph adenopathy, supple Chest: normal palpation o f entire chest wal l Resp: normal respiratory effort, No retrac tions, No use of a ccessory muscles a nd clear to auscul tation bilaterally Cardio: regular rate, regu lar rhythm, S1/S2 normal. No gallops , No murmurs, No r ubs. Peripheral pu lses 2+ throughout GI: Soft to palpation, non-tender, No he patosplenomegaly Extremity: full ROM, no clubb ing, cyanosis or e kaushal and no pedal edema Neuro: patient oriented x 3 and moves all ex tremities Psych: cooperative, phillip l affect and speec h normal Skin: abrasion on hypoth enar eminence of l eft hand. Data 04/01/25 02:59 04/01/25 02:59 Micro: Microbiology 03/31/25 16:21 Blood Culture - Preliminary Blood SPECIMEN COLLECTED 03/31/25 16:19 Blood Culture - Preliminary Blood SPECIMEN COLLECTED A&P Assessment and plan 1. Heart failure: 2. Hypotension: Plan: 74 year old male presenting after syncopal episode Syncope - likely related to low blood pressure with his HF medications. - monitor on tele - no need for carotid studies with syncope - may need to reduce some of his HF medications if BP is not tolerating. HF CVD s/p CABG in Jul. of this year AICD/PPM in place - HF likely 2/2 ischemic cardiomyopathy given history - unknown EF, no prior echos - he does not appear fluid overloaded currently - echo pending. - currently off his HF regimen, BP is still low. ?PNA - no definite PNA on CT chest, doubt infection currently - patient is afebrile, no leukocytosis - lactate is nonspecific - UA is clear PPx: home eliquis Diet: HH Disposition - monitor overnight and can likely DC in the AM if no other issues - follow up with cardiology after discharge for ongoing medication optimization, may not be able to tolerate full HF regimen. PDMP PDMP Reviewed: Not Reviewed Attestations 2 Medical Necessity Statement*: ongoing observation for HF with syncope from low BP. Time Spent in Patient Care: 16 - 35 minutes (>than 50% of time sp ent in counselling and/or direct pt care on unit) . Coding Level of Care Code Acute Code for [facility] Diagnoses Heart failure I50.9 Hypotension I95.9
--- NOTE | 2025-04-01 19:05 | PC.NURSE ---
Nurse notified of low bp.
--- NOTE | 2025-04-01 19:44 | USCV_ITS ---
Philippe Dahl Age: 74 Gender: M : 1950 Exam Date: 04/01/2025 10:22 Ordering Phys: Sung Holman MD Technologist: Exam Location: [facility] [place] Indication: cp cad low bd BP: 80 / 58 HR: 111 Rhythm: Sinus Technical Quality: Adequate MEASUREMENTS (Male / Female) Normal Values 2D ECHO LV Ejection Fraction MOD 4C 45.7 % LV Ejection Fraction MOD 2C 48.5 % LV Ejection Fraction 2C AL 49.4 % RA Systolic Volume 4C AL 51.3 ml RA Systolic Volume 4C MOD 48.0 ml DOPPLER AV Peak Velocity 101.0 cm/s LVOT Peak Velocity 65.0 cm/s MV Peak Velocity 129.0 cm/s MV Area PHT 4.3 cm squared Mitral E to A Ratio 2.5 PV Peak Velocity 88.0 cm/s FINDINGS Left Ventricle Moderately increased left ventricular cavity size. Moderately decreased left ventricular systolic function. Left ventricular ejection fraction is estimated at 40 %. There appeared to be mid to distal anterior, septal and apical akinesis with possible LV aneurysm consistent with ischemic heart disease.Grade III/IV diastolic dysfunction (restrictive filling pattern), severely elevated filling pressures. Right Ventricle Normal right ventricular size and systolic function. Right Atrium Moderately increased right atrial size. Left Atrium Moderately increased left atrial size. IA Septum Normal appearance of the interatrial septum. Mitral Valve Mildly thickened mitral valve. No mitral valve stenosis. Moderate mitral valve regurgitation. Aortic Valve Severe aortic valve calcification. Valve not well visualized therefore cannot comment on hemodynamics Tricuspid Valve Mild tricuspid valve regurgitation. Pulmonic Valve Normal pulmonic valve structure. No pulmonic valve stenosis or regurgitation. Pericardium No pericardial effusion. Aorta Normal diameter of the aortic root and ascending thoracic aorta. IVC Inferior vena cava not visualized. CONCLUSIONS Moderately increased left ventricular cavity size. Moderately decreased left ventricular systolic function. Left ventricular ejection fraction is estimated at 40 %. There appeared to be mid to distal anterior, septal and apical akinesis with possible LV aneurysm consistent with ischemic heart disease.Grade III/IV diastolic dysfunction (restrictive filling pattern), severely elevated filling pressures. Moderately increased biatrial size. Mildly thickened mitral valve. No mitral valve stenosis. Moderate mitral valve regurgitation. Severe aortic valve calcification. Valve not well visualized therefore cannot comment on hemodynamics There is no pericardial effusion. Eric Brady MD (Electronically Signed) Final Date: 01 April 2025 11:31 S
[2025-04-02 03:38] VITALS: BP 90/63; PULSE 87; RESP 23; TEMP 36.3; O2SAT 96
[2025-04-02 03:40] LABS: Hematocrit 33.5 % (37-53); Hemoglobin 10.60 g/dL (11.27-16.99); Mean Corpuscular HGB Conc 31.6 g/dL (30-55); Mean Corpuscular Hemoglobin 28.6 pg (27-33); Mean Corpuscular Volume 90.5 fl (82-101); Nucleated Red Blood Cells % 0 %; Platelet Count 149 10^3/cmm (157-399); Red Blood Count 3.70 10^6/uL (3.85-5.65); White Blood Count 5.74 10^3/uL (3.29-11.43)
[2025-04-02 04:06] LABS: Anion Gap 13.6 (5-19); Blood Urea Nitrogen 11 mg/dL (8-23); Calcium 7.9 mg/dL (8.5-10.5); Carbon Dioxide 23 mmol/L (22-29); Chloride 107 mmol/L (98-107); Creatinine Clr Calc Pharmacy 83.3666; Glucose 125 mg/dL (65-115); Osmolality Calculated 291 mOsm/kg (285-295); Potassium 3.6 mmol/L (3.5-5.1); Sodium 140 mmol/L (136-145)
[2025-04-02 06:00] VITALS: BMI 21.6
[2025-04-02 07:33] VITALS: BP 93/67; PULSE 92; RESP 14; TEMP 36.6; O2SAT 95
[2025-04-02 07:37] VITALS: PULSE 90; RESP 18; O2SAT 95
--- NOTE | 2025-04-02 10:15 | P.DS_ITS ---
Discharge Providers Date of Admission: 03/31/25 18:30 Date of Discharge: April 02, 2025 Attending Provider at Admission: Sung Holman MD Attending Provider at Discharge: Sung Holman MD Primary Care Provider: YAMILA Almeida Diagnoses at Discharge Discharge Diagnosis 1. Heart failure: 2. Hypotension: Reason for Visit Reason for Visit: Syncope Brief History: 74 year old male presenting after syncop al episode Hospital Course Hospital Course Syncope - likely related to low blood pressure with his HF medications. - monitor on tele - no need for carotid studies with syncope - may need to reduce some of his HF medications if BP is not tolerating. HFrEF with diastolic heart failure Hypotension CVD s/p CABG in Jul. of this year AICD/PPM in place Ischemic cardiomyopathy - not in acute exacerbation - EF 40%, GIIIDD - he does not appear fluid overloaded currently - at this time, his GDMT is on hold for hypotension. - cont. to hold his HF regimen on D/C and follow up with cardiology in 1-2 weeks for ongoing medication optimization - he will likely need a staged reintroduction of his GDMT on follow up depending on what his blood pressure will tolerate. ?PNA - no definite PNA on CT chest, doubt infection currently - patient is afebrile, no leukocytosis - lactate is nonspecific - UA is clear - monitor off antibiotics. PPx: home eliquis Diet: HH Disposition - follow up with cardiology after discharge for ongoing medication optimization, may not be able to tolerate full HF regimen. - the patient is wanting to see cardiology here rather than [place]. Referral placed. Physical Exam Narrative: Physical Exam Const: no acute distress, average body habitus and patient oriented x3 HENMT: normocephalic and atraumatic Eyes: Equal, round and reactive pupils present and EOMs intact bilaterally Neck/C-Spine: full ROM, no lymphadenopathy, supple Chest: normal palpation of entire chest wall Resp: normal respiratory effort, No retractions, No use of accessory muscles and clear to auscultation bilaterally Cardio: regular rate, regular rhythm, S1/S2 normal. No gallops, No murmurs, No rubs. Peripheral pulses 2+ throughout GI: Soft to palpation, non-tender, No hepatosplenomegaly Extremity: full ROM, no clubbing, cyanosis or edema Neuro: patient oriented x 3 and moves all extremities Psych: cooperative, normal affect and speech normal Skin: abrasion on hypothenar eminence of left hand. Discharge Data Studies Completed and Pending Completed Studies During Hospitalization Category Date Time Status CT chest wo con [id number] Stat Cat Scan 03/31/25 16:52 Completed XR chest 1V portable [id number] Stat Exams 03/31/25 15:51 Completed CV. echo complete* [id number] Routine Ultrasound 04/01/25 19:44 Completed Pending at discharge Category Date Time Status Blood Culture Stat Lab 03/31/25 16:21 Results Radiology Impressions Chest X-Ray 03/31/25 15:51 IMPRESSION: Left basilar opacity with small left pleural effusion. Findings could represent pneumonia. Chest CT 03/31/25 16:52 IMPRESSION: 1. Small bilateral pleural effusions [id number] with lower lobe atelectasis. No definite pneumonia. 2. Status post cardiac surgery with postsurgical change versus fluid collection in the retrosternal region and along the ascending aorta. Please correlate with surgical history. 3. Other findings as detailed above. COMMENTS: The presence of pulmonary emphysema on CT is an independent risk factor for lung cancer. In the absence of a history or active diagnosis of lung cancer, it is recommended that this patient with emphysema be evaluated for enrollment in a low dose CT lung cancer screening program. Laboratory Results WBC 5.74 10^3/uL (3.29-11.43) 04/02/25 03:24 RBC 3.70 10^6/uL (3.85-5.65) L 04/02/25 03:24 Hgb 10.60 g/dL (11.27-16.99) L 04/02/25 03:24 Hct 33.5 % (37-53) L 04/02/25 03:24 MCV 90.5 fl (82-101) 04/02/25 03:24 MCH 28.6 pg (27-33) 04/02/25 03:24 MCHC 31.6 g/dL (30-55) 04/02/25 03:24 RDW 17.2 % (12.1-15.1) H 04/02/25 03:24 Plt Count 149 10^3/cmm (157-399) L 04/02/25 03:24 MPV 10.3 fL (7.4-10.4) 04/02/25 03:24 Neut % (Auto) 74.4 % 04/02/25 03:24 Lymph % (Auto) 13.8 % 04/02/25 03:24 Page % (Auto) 9.4 % 04/02/25 03:24 Eos % (Auto) 1.9 % 04/02/25 03:24 Baso % (Auto) 0.3 % 04/02/25 03:24 Neut # (Auto) 4.27 10^3/uL (1.8-7.7) 04/02/25 03:24 Lymph # (Auto) 0.8 10^3/uL (0.8-4.8) 04/02/25 03:24 Page # (Auto) 0.5 10^3/uL (0.2-0.9) 04/02/25 03:24 Eos # (Auto) 0.1 10^3/uL (0.0-0.8) 04/02/25 03:24 Baso # (Auto) 0.0 10^3/uL (0.0-0.1) 04/02/25 03:24 Nucleated RBC % (auto) 0 % 04/02/25 03:24 Nucleated RBCs # 0.0 /100WBC 04/02/25 03:24 Sodium 140 mmol/L (136-145) 04/02/25 03:24 Potassium 3.6 mmol/L (3.5-5.1) 04/02/25 03:24 Chloride 107 mmol/L (98-107) 04/02/25 03:24 Carbon Dioxide 23 mmol/L (22-29) 04/02/25 03:24 Anion Gap 13.6 (5-19) 04/02/25 03:24 BUN 11 mg/dL (8-23) 04/02/25 03:24 Creatinine 0.7 mg/dL (0.7-1.2) 04/02/25 03:24 GFR Calculation Not Reportable 04/02/25 03:24 Glucose 125 mg/dL (65-115) H 04/02/25 03:24 Calculated Osmolality 291 mOsm/kg (285-295) 04/02/25 03:24 Lactic Acid 4.1 mmol/L (0.5-2.2) H* 03/31/25 15:50 Lactic Acid (Sepsis) 3.2 mmol/L (0.5-2.2) H 03/31/25 17:48 Calcium 7.9 mg/dL (8.5-10.5) L 04/02/25 03:24 Phosphorus 3.6 mg/dL (2.5-4.5) 04/01/25 02:59 Magnesium 2.0 mg/dL (1.7-2.3) 04/01/25 02:59 Total Bilirubin 0.7 mg/dL (0.15-1.2) 03/31/25 15:50 AST 14 U/L (0-40) 03/31/25 15:50 ALT 11 U/L (0-41) 03/31/25 15:50 Alkaline Phosphatase 115 U/L (40-130) 03/31/25 15:50 Troponin T Baseline 27 ng/L (0-15) H 03/31/25 15:50 Troponin T 120 Minute 21.94 ng/L (0-15) H 03/31/25 17:48 Delta Troponin T -5.06 ABS# (0-10) L 03/31/25 17:48 Troponin T Hi Sens 6Hr 23.44 ng/L (0-15) H 03/31/25 21:51 Troponin T Hi Sens 6Hr Delta -3.56 ng/L (0-12) L 03/31/25 21:51 NT-Pro-B Natriuret Pep 5957 pg/mL (0-125) H 03/31/25 15:50 Total Protein 5.6 g/dL (6.6-8.7) L 03/31/25 15:50 Albumin 3.6 g/dL (3.5-5.2) 03/31/25 15:50 Globulin 2.0 g/dL (1.3-4.6) 03/31/25 15:50 Urine Color Yellow (Yellow) 03/31/25 17:45 Urine Appearance Clear (CLEAR) 03/31/25 17:45 Urine pH 5.5 (5-7) 03/31/25 17:45 Ur Specific [place] 1.028 (1.005-1.030) 03/31/25 17:45 Urine Protein Negative (Negative) 03/31/25 17:45 Urine Glucose (UA) 3+ (Normal) H 03/31/25 17:45 Urine Ketones Negative (Negative) 03/31/25 17:45 Urine Blood Negative (Negative) 03/31/25 17:45 Urine Nitrate Negative (Negative) 03/31/25 17:45 Urine Bilirubin Negative (Negative) 03/31/25 17:45 Urine Urobilinogen 1.0 mg/dL (Negative) 03/31/25 17:45 Ur Leukocyte Esterase Negative (Negative) 03/31/25 17:45 Urine RBC None /hpf (0-2) 03/31/25 17:45 Urine WBC None /hpf (0-5) 03/31/25 17:45 Ur Squamous Epith Cells None /hpf (0-5) 03/31/25 17:45 Amorphous Sediment Not Reportable 03/31/25 17:45 Urine Bacteria None /hpf (NONE) 03/31/25 17:45 Urine Mucus None /hpf 03/31/25 17:45 Influenza A (PCR) Negative (Negative) 03/31/25 17:07 Influenza Type B (PCR) Negative (Negative) 03/31/25 17:07 RSV (PCR) Negative (Negative) 03/31/25 17:07 SARS-CoV-2 (PCR) Negative (Negative) 03/31/25 17:07 Vitals Last Vital Signs Temp 97.9 F 04/02/25 07:33 Pulse 90 04/02/25 07:37 Resp 18 04/02/25 07:37 BP 93/67 04/02/25 07:33 Pulse Ox 95 04/02/25 07:37 O2 Del Method Room Air 04/02/25 07:37 Discharge Plan Discharge Patient Disposition: Home Condition: Stable Prescriptions: New aspirin 81 mg capsule 81 mg PO DAILY Qty: 30 2RF Continued cyclobenzaprine 10 mg tablet 10 mg PO TID PRN (Reason: muscle spasm) Qty: 30 2RF nitroglycerin 0.4 mg tablet, sublingual 0.4 mg SUBLINGUAL Q5M PRN (Reason: CAD) Qty: 20 0RF atorvastatin 40 mg tablet 40 mg PO DAILY Qty: 90 1RF citalopram 20 mg tablet 20 mg PO DAILY Qty: 90 1RF pantoprazole 20 mg tablet,delayed release (DR/EC) See Rx Instructions .ROUTE .COMPLEX Qty: 90 0RF Dose Instruction: Take 1 tablet by mouth once daily Rx Instructions: Take 1 tablet by mouth once daily Pt needs an appt for more refills hydrocodone-acetaminophen 5-325 mg tablet 1 tab PO Q8H PRN (Reason: pain) Qty: 14 0RF Rx Instructions: Take 1/2 to 1 tab every 8 hours as needed for pain polyethylene glycol 3350 [Miralax] 17 gram/dose powder 17 g PO DAILY Qty: 510 0RF Rx Instructions: Take 1 scoop daily while taking pain medications. Eliquis 5 mg tablet 5 mg PO BID ferrous sulfate [FeroSul] 325 mg (65 mg iron) tablet 325 mg PO DAILY Jardiance 10 mg tablet 10 mg PO DAILY tamsulosin 0.4 mg capsule 0.4 mg PO DAILY Discontinued aspirin 325 mg tablet 325 mg PO DAILY metoprolol tartrate 50 mg tablet See Rx Instructions .ROUTE .COMPLEX Qty: 60 0RF Dose Instruction: Take 1 tablet by mouth twice daily Rx Instructions: Take 1 tablet by mouth twice daily Pt needs an appt for more refills sacubitril-valsartan [Entresto] 24-26 mg tablet 24 - 26 tab PO BID furosemide [Lasix] 20 mg tablet 20 mg PO DAILY spironolactone [Aldactone] 25 mg tablet 12.5 mg PO DAILY Discharge Order = DC NOW: Discharge Order (Routine); Ordered 04/02/25 Ordered By: Sung Holman Referrals: Jim Bowling MD [Physician, Cardiology] Hermelindo Cartwright FNP [Referring] - 04/08/25 11:00 am Referral Note: [phone] is the number for the [place] office, this is where you'll be seen Discharge Diet: Cardiac and Low Salt Discharge Activity: Resume usual activity Patient Instructions: Syncope, GERD (Gastroesophageal Reflux Disease) (DC), Hypertensive Crisis (DC), Opioid Safety, Patient Portal & Krystin Instructions Discharge Attestations Time Spent in Discharge Care*: greater than 30 min Specific Discharge Activities: educating patient, educating and/or supporting family/caregiver, discussing with pcp/other providers, discussing with case specialist/social workers/dc planners, documenting/other paperwork and evaluating patient/reviewing data Quality Metrics Clinical Quality Measures [ No reported AMI, CVA or VTE this stay] Coding Level of Care Code Acute Code for [facility] Diagnoses Heart failure I50.9 Hypotension I95.9
[2025-04-02 11:12] VITALS: BP 87/65; PULSE 90; RESP 17; O2SAT 95
[2025-04-02 11:15] VITALS: PULSE 92; RESP 18; O2SAT 97
== END 2025-04-02 11:52 | disposition home or self-care (01) ==
LOC: ER 18:23 → CSU 18:35
PROVIDERS: Admitting Provider Internal Medicine; Emergency Provider Emergency Medicine; PCP Nurse Practitioner Family; Visit Provider Internal Medicine
DX: I50.9 Heart failure, unspecified (principal); I95.9 Hypotension, unspecified; Z79.01 Long term (current) use of anticoagulants; K21.9 Gastro-esophageal reflux disease without esophagitis; Z79.82 Long term (current) use of aspirin; Z95.1 Presence of aortocoronary bypass graft; I48.91 Unspecified atrial fibrillation; I25.10 Atherosclerotic heart disease of native coronary artery without angina pectoris; E78.5 Hyperlipidemia, unspecified; I25.2 Old myocardial infarction; I11.0 Hypertensive heart disease with heart failure; F32.A Depression, unspecified; Z95.5 Presence of coronary angioplasty implant and graft; F17.210 Nicotine dependence, cigarettes, uncomplicated
CPT/HCPCS: 36415; 71045; 71250; 80048; 80053; 81001; 83605; 83735; 83880; 84100; 84484; 85025; 87040; 87637; 93005; 93306; 94640; 94664; 96365; 96372; 99285; G0378; J1650; J2020; J2185; J7030; J7040; J9999

== ENCOUNTER 2025-04-03 06:48 | Inpatient (IN) | payer MEDICARE, MEDICAID, SELFPAY ==
--- OUTSIDE RECORDS SUMMARY | 2024-08-03 09:38 | XMS_ITS | Encounter Summary ---
Author Organization [facility] Address [address] [place] [address] Care Team Providers Care Legal Contracts Specialist Name Role Phone Willie Byrne MD Primary Care Provider [phone] Reason for Visit * Auth/Cert (Routine) Specialty Diagnoses / Procedures Referred By Contac t Referred To Contact Perioperative Diagnoses Atherosclerosis of [place] artery of both lower extremities with intermittent claudication Atherosclerosis of [place] artery of right lower extremity with intermittent claudication Procedures CHG ANGIOGRAPHY EXTREMITY UNILATERAL RS&I OH SLCTV CATHJ 3RD+ ORD SLCTV ABDL PEL/LXTR BRNCH CHG AORTOGRAPHY ABDOMINAL SERIALOGRAPHY RS&I OH REVASCULARIZATION ILIAC ARTERY ANGIOP 1ST VSL OH REVSC OPN/PRQ ILIAC ART W/STNT PLMT & ANGIOPLSTY OH REVSC OPN/PRQ FEM/POP W/ATHRC/ANGIOP SM VSL OH REVSC OPN/PRQ FEM/POP W/STNT/ATHRC/ANGIOP SM VSL OH REVSC OPN/PRQ TIB/ABNER W/ATHRC/ANGIOP SM VSL OH REVSC OPN/PRQ TIB/ABNER W/STNT/ATHR/ANGIOP SM VSL FEMORAL ANGIOGRAPHY WITH INTERVENTION RIGHT Ronal Vicente MD [address] [place] [address] Phone: tel: fax: [facility] Operating Room [address] [place] [address] Phone: tel: fax: Referral ID Status Reason Start Date Expiration Date Visits Re quested Visits Authorized [id number] 1 1 Encounter Details Date Type Department Care Team (Latest Contact Info) Description 08/03/2024 8:38 AM JOURNALIST Hospital Encounter [facility] Operating Room [address] [place] [address] Ronal Vicente MD [address] [place] [address] Peripheral vascular disease, unspecified Social [...] on file Legal Sex Male 11:54 PM JOURNALIST Gender Identity Not on file Sexual Orientation [...] flow in the distal PDA with good qfwx-fg-scvis collaterals. Hemodynamics - LVEDP was 9 mmHg. [...] 04:36 AM PHBLOODPOC 7.43 08/06/2024 12:17 PM [id number] 32 (L) 08/06/2024 12:17 PM PO2POC 76 (L) 08/06/2024 12:17 PM WJZ5KEG 21 (L) 08/06/2024 12:17 PM [id number] 43 08/08/2024 04:36 AM FSD6QGX 22 (L) 08/06/2024 12:17 PM BEPOC -3 (L) 08/06/2024 12:17 PM LACTATE 1.9 08/15/2024 12:26 PM PATIENTTEMP 37.0 08/04/2024 02:50 PM PHTEMPCORR 7.43 08/06/2024 12:17 PM [id number] 32 (L) 08/06/2024 12:17 PM VP6NDVRNXN 76 (L) 08/06/2024 12:17 PM Lactic acid: [...] per bedside nursing. Family communication: Updated EM3 NALIST documented in this encounter Plan of Treatment Upcoming Encounters Date Type Department Care Team (Late st Contact Info) Description 05/07/2025 8:15 AM JOURNALIST Appointment [facility] MRI [address] [place] [address] Catherine Paul NP [address] [facility] [address], [address] [place] [phone] 05/28/2025 9:20 AM JOURNALIST Office Visit [facility] [address] [place] [phone] Catherine Paul NP [address], [address] [place] [phone] 08/11/2025 2:00 PM JOURNALIST Office Visit [facility] [address] [place] [address] [phone] Juarez Clements MD [address] [place] [phone] Geovanna Scherer NP [address], [address] [place] [phone] documented as of this encounter Visit Diagnoses Not on filedocumented in this encounter Care Teams Legal Contracts Specialist Relationship Specialty Start Date End Date Willie Byrne MD [address] [place] [phone] PCP - General Family Practice 02/18/23 03/07/25 documented as of this encounter
--- OUTSIDE RECORDS SUMMARY | 2024-08-03 09:38 | XMS_ITS | Encounter Summary ---
Author Organization [facility] Address [address] [place] [address] Care Team Providers Care Typists Supervisor Name Role Phone Willie Byrne MD Primary Care Provider [phone] Reason for Visit * Auth/Cert (Routine) Specialty Diagnoses / Procedures Referred By Contac t Referred To Contact Perioperative Diagnoses Atherosclerosis of [place] artery of both lower extremities with intermittent claudication Atherosclerosis of [place] artery of right lower extremity with intermittent claudication Procedures CHG ANGIOGRAPHY EXTREMITY UNILATERAL RS&I CO SLCTV CATHJ 3RD+ ORD SLCTV ABDL PEL/LXTR BRNCH CHG AORTOGRAPHY ABDOMINAL SERIALOGRAPHY RS&I CO REVASCULARIZATION ILIAC ARTERY ANGIOP 1ST VSL CO REVSC OPN/PRQ ILIAC ART W/STNT PLMT & ANGIOPLSTY CO REVSC OPN/PRQ FEM/POP W/ATHRC/ANGIOP SM VSL CO REVSC OPN/PRQ FEM/POP W/STNT/ATHRC/ANGIOP SM VSL CO REVSC OPN/PRQ TIB/ABNER W/ATHRC/ANGIOP SM VSL CO REVSC OPN/PRQ TIB/ABNER W/STNT/ATHR/ANGIOP SM VSL FEMORAL ANGIOGRAPHY WITH INTERVENTION RIGHT Ronal Vicente MD [address] [place] [address] Phone: tel: fax: [facility] Operating Room [address] [place] [address] Phone: tel: fax: Referral ID Status Reason Start Date Expiration Date Visits Re quested Visits Authorized [id number] 1 1 Encounter Details Date Type Department Care Team (Latest Contact Info) Description 08/03/2024 8:38 AM PUMP MACHINE OPERATOR Hospital Encounter [facility] Operating Room [address] [place] [address] Ronal Vicente MD [address] [place] [address] Peripheral vascular disease, unspecified Social [...] on file Legal Sex Male 11:54 PM PUMP MACHINE OPERATOR Gender Identity Not on file Sexual [...] flow in the distal PDA with good ivdv-pa-ogyrj collaterals. Hemodynamics - LVEDP was 9 mmHg. [...] 04:36 AM PHBLOODPOC 7.43 08/06/2024 12:17 PM JVN7BOB 32 (L) 08/06/2024 12:17 PM PO2POC 76 (L) 08/06/2024 12:17 PM JFB9HWR 21 (L) 08/06/2024 12:17 PM P0VQIPVE 43 08/08/2024 04:36 AM KJL5ADZ 22 (L) 08/06/2024 12:17 PM BEPOC -3 (L) 08/06/2024 12:17 PM LACTATE 1.9 08/15/2024 12:26 PM PATIENTTEMP 37.0 08/04/2024 02:50 PM PHTEMPCORR 7.43 08/06/2024 12:17 PM KIR5IPLNNC 32 (L) 08/06/2024 12:17 PM [id number] 76 (L) 08/06/2024 12:17 PM Lactic acid: [...] per bedside nursing. Family communication: Updated EM3 MACHINE OPERATOR documented in this encounter Plan of Treatment Upcoming Encounters Date Type Department Care Team (Late st Contact Info) Description 05/07/2025 8:15 AM PUMP MACHINE OPERATOR Appointment [facility] MRI [address] [place] [address] Catherine Paul NP [address] [facility] [address], [address] [place] [phone] 05/28/2025 9:20 AM PUMP MACHINE OPERATOR Office Visit [facility] [address] [place] [phone] Catherine Paul NP [address], [address] [place] [phone] 08/11/2025 2:00 PM PUMP MACHINE OPERATOR Office Visit [facility] [address] [place] [phone] Juarez Clements MD [address] [place] [address] [phone] Geovanna Scherer NP [address], [address] [place] [phone] documented as of this encounter Visit Diagnoses Not on filedocumented in this encounter Care Teams Typists Supervisor Relationship Specialty Start Date End Date Willie Byrne MD [address] [phone] PCP - General Family Practice 02/18/23 03/07/25 documented as of this encounter
[2025-04-03] VITALS (44 sets, daily range): BP systolic 89–110; BP diastolic 68–82; PULSE 90–120; RESP 12–37; TEMP 36.2–36.8; O2SAT 90–100; BMI 20.9
--- NOTE | 2025-04-03 06:51 | XRR_ITS ---
PROCEDURE INFORMATION: Exam: XR Chest Exam date and time: 04/03/2025 7:02 AM Age: 74 years old Clinical indication: Shortness of breath; Prior surgery; Surgery date: 6+ months; Surgery type: Open heart defib; Additional info: Dyspnea/cough TECHNIQUE: Imaging protocol: Radiologic exam of the chest. Views: 1 view. COMPARISON: CT chest wo luis [id number] 03/31/2025 5:24 PM FINDINGS: Tubes, catheters and devices: Dual lead AICD device is noted on the left. Lungs: The lungs are hyperinflated. There are bilateral interstitial infiltrates worse on today's exam when compared to prior exam. Findings could be related to interstitial edema. An inflammatory cause could certainly have this appearance. Pleural spaces: Unremarkable. No pleural effusion. No pneumothorax. Heart/Mediastinum: The heart is slightly enlarged. Sternal wires are present from prior cardiac surgery. There is calcified plaque involving the aorta. There is a left atrial appendage clip present. Bones/joints: Unremarkable. XR/XR chest 1V portable [id number] IMPRESSION: 1. Lung hyperinflation. 2. Bilateral primarily interstitial infiltrates worse on today's exam.
--- NOTE | 2025-04-03 06:51 | ECG_ITS ---
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1950 Requested By: Wade Light Order Number: [id number] Reading MD: MAGDALENA FREEMAN Measurements Intervals [place] Rate: 117 P: 76 [place]: 145 QRS: 113 QRSD: 113 T: 119 QT: 345 QTc: 483 Interpretive Statements SINUS TACHYCARDIA POSSIBLE LEFT ATRIAL ENLARGEMENT [-0.1mV P-WAVE IN V1/V2] LOW QRS VOLTAGE IN EXTREMITY LEADS [QRS DEFLECTION < 0.5 mV IN LIMB LEADS] ANTEROLATERAL MYOCARDIAL INFARCTION , OF INDETERMINATE AGE [40+ ms Q WAVE IN I/aVL/V3-V6] Compared to ECG 04/01/2025 00:32:34 Sinus rhythm no longer present Ventricular premature complex(es) no longer present Right-axis deviation no longer present Myocardial infarct finding still present Electronically Signed On 04-04-2025 23:13:06 CDT by MAGDALENA FREEMAN [email or web address]
--- OUTSIDE RECORDS SUMMARY | 2025-04-03 06:53 | XMS_ITS | Encounter Summary ---
Author Organization [facility] Address 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 Gender Identity Not on file Sexual Orientation Not on file documented as of this encounter Plan of Treatment Upcoming Encounters Date Type Department Care Team (Late Contact Info) Description 05/07/2025 8:15 AM FLAMER AFTER LASTING Appointment [facility] [address] [place] [address] Catherine Paul, JESUS [address] [place] [address] 05/28/2025 9:20 AM FLAMER AFTER LASTING Office Visit [facility] [address] [place] [phone] Catherine Paul, JESUS [address], [address] [place] [phone] 08/11/2025 2:00 PM FLAMER AFTER LASTING Office Visit [facility] [address] [place] [phone] Juarez Clements MD [address] [place] [phone] Geovanna Scherer NP [address], [address] [place] [phone] documented as of this encounter Visit Diagnoses Not on filedocumented in this encounter
--- OUTSIDE RECORDS SUMMARY | 2025-04-03 06:53 | XMS_ITS | Encounter Summary ---
Author Organization [facility] Address [address] [place] [address] Care Team Providers Care Item Repair Manager Name Role Phone Unavailable Primary Care Provider Unavailluis e Encounter Details Date Type Department Care Team (Latest Contact Info) Description 04/26/2005 Outpatient Historical [facility] [address] 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
--- OUTSIDE RECORDS SUMMARY | 2025-04-03 06:53 | XMS_ITS | Clinical Summary ---
Author Organization [facility] Address [address] 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
--- OUTSIDE RECORDS SUMMARY | 2025-04-03 06:53 | XMS_ITS | Clinical Summary ---
Author Organization [facility] Administrative Offices Address [address] [place] [address] Care Team Providers Care Human Resources Trainee Name Role Phone Unavailable Primary Care Provider Unavailabl e Allergies Active Allergy Reactions Criticality Noted Date Comments Adhesive Other (See Comments) Low 03/19/2023 Tegaderm caused bleeding Medications aspirin (ECOTRIN EC) 81 mg Tablet, Delayed Release (E.C.) Take 1 Tablet (81 mg) by mouth daily. 90 Tablet 02/05/20 23 Active atorvastatin (LIPITOR) 40 mg tablet Take 1 Tablet (40 mg) by mouth daily. 100 Tablet 3 04/06/20 24 Active spironolactone (ALDACTONE) 25 mg tablet Take 0.5 Tablets (12.5 mg) by mouth daily. 45 Tablet 2 08/29/19 25 Active empagliflozin (Jardiance) 10 mg tablet Take 1 Tablet (10 mg) by mouth daily in the morning. 100 Tablet 3 08/29/19 25 Active tamsulosin (FLOMAX) 0.4 mg capsuleIndicat ions:Elevated prostate specific antigen (PSA) Take 1 capsule by mouth once daily 90 Capsule 1 09/08/19 25 Active ferrous sulfate 325 mg (65 mg iron) tabletIndicati ons:Anemia, chronic disease Take 1 tablet by mouth once daily 90 Tablet 1 10/20/19 25 Active gabapentin (NEURONTIN) 300 mg capsuleIndicat ions:Neuropath y TAKE 1 CAPSULE BY MOUTH THREE TIMES DAILY 90 Capsule 3 10/20/19 25 Active Additional Information Patient not taking.Reported on 03/05/2025 metoprolol succinate (Toprol XL) 25 mg Extended Release 24 hour tablet Take 1 Tablet (25 mg) by mouth daily in the morning AND 0.5 Tablets (12.5 mg) daily at bedtime. Skip your dose if the top number of your blood pressure is less than 100 or your heart rate is less than 60. 135 Tablet 3 10/31/19 25 Active pantoprazole (PROTONIX) 20 mg Tablet, Delayed Release (E.C.)Indicati ons:S/P CABG x 3 Take 1 tablet by mouth once daily 90 Tablet 01/12/20 25 Active apixaban (ELIQUIS) 5 mg tablet Take 1 Tablet (5 mg) by mouth 2 times daily. 180 Tablet 3 01/21/20 25 Active HYDROcodone-ac etaminophen (NORCO) 5-325 mg tabletIndicati ons:ICD (implantable cardioverter-d efibrillator) in place Take 1 Tablet by mouth every 4 hours as needed for Pain, Moderate. Max Daily Amount: 6 Tablets 20 Tablet 02/12/20 25 Active Additional Information Patient not taking.Reported on 03/05/2025 citalopram (CeleXA) 20 mg tablet TAKE 1 TABLET BY MOUTH ONCE DAILY AT BEDTIME 90 Tablet 03/03/20 25 Active sacubitriL-leonardo sartan (ENTRESTO) 24-26 mg Tablet Take 1 Tablet by mouth 2 times daily. Hold if BP less than 90- systolic 200 Tablet 3 03/05/20 25 Active furosemide (LASIX) 20 mg tablet Take 1 Tablet (20 mg) by mouth every other day. 45 Tablet 3 03/05/20 25 Active sacubitriL-leonardo sartan (ENTRESTO) 24-26 mg Tablet Take 1 Tablet by mouth 2 times daily. Hold if BP less than 100 systolic 200 Tablet 3 11/24/19 25 025 Discontinued predniSONE (DELTASONE) 20 mg tablet Take 2 Tablets (40 mg) by mouth daily for 5 days. 10 Tablet 02/28/20 25 025 Additional Information Patient not taking.Reported on 03/05/2025 amoxicillin-cl avulanate (AUGMENTIN) 875-125 mg tablet Take 1 Tablet by mouth every 12 hours for 7 days. 14 Tablet 02/28/20 25 025 Active Problems Problem Noted Date Diagnosed Date Chronic anticoagulation 02/03/2025 Ischemic dilated cardiomyopathy 02/03/2025 Chronic combined systolic and diastolic CHF, [facility] A class 2 02/03/2025 NYHA class 3 acute on chronic systolic heart everett lure 02/03/2025 S/P CABG x 3 08/08/2024 PAF (paroxysmal atrial fibrillation) 08/06/2024 Status post ligation of left atrial appendage Thrombocytopenia 08/05/2024 Prediabetes 08/04/2024 Anemia 08/04/2024 Status post coronary artery bypass graft 025 HFrEF (heart failure with reduced ejection fract ion) 08/04/2024 ASHD (arteriosclerotic heart disease) 07/27/2024 Encounter for smoking cessation counseling 07/24 Sinus bradycardia 07/23/2024 Symptomatic bradycardia 07/23/2024 Dyspnea 07/23/2024 Essential hypertension 03/05/2024 Arterial insufficiency of lower extremity 2023 Hyperlipidemia 03/05/2024 Elevated PSA, less than 10 ng/ml 03/05/2024 Athscl [place] arteries of extrm w intrmt mark, bi legs 02/04/2023 Tobacco use 11/14/2022 Resolved Problems Problem Noted Date Diagnosed Date Resolved Date Acute respiratory insufficie ncy, postoperative 08/04/2024 08/11/2024 Acute coronary syndrome 07/24/2024 08/1 08/2024 Abnormal stress test 07/24/2024 025 Encounters Date Type Department Care Team Description 03/30/2025 External Device Data STL ABSTRACTION Provider, Abstract 03/10/2025 1:30 PM CDT Nurse Only [facility] [address] [facility] [address] [place] [address] Juarez Clements MD Sick sinus syndrome (CMS/HCC) (Primary Dx); Atrial fibrillation, unspecified type (CMS/HCC); Ischemic dilated cardiomyopathy (CMS/HCC); Automatic implantable cardioverter-defibril lator in situ 03/08/2025 [address]phone [facility] [address] [place] [address] Willie Byrne MD Needs Appointment 03/05/2025 10:15 AM CDT Office Visit [facility] [address] [facility] [address] [place] [phone] Hung Lorenzo MD CAD in [place] artery (Primary Dx); S/P CABG (coronary artery bypass graft) 03/02/2025 External Device Data STL ABSTRACTION Provider, Abstract 03/02/2025 External Device Data STL ABSTRACTION Provider, Abstract 03/02/2025 External Device Data STL ABSTRACTION Provider, Abstract 03/01/[address] [phone] Raiza Nesbitt, [facility] 03/01/[address] [phone] Willie Byrne MD Ed Follow-up 02/27/2025 5:02 PM CDT - 02/27/2025 7:[address] [facility] Emergency Department [address] [place] [phone] Naveen Morin MD Shortness of breath (Primary Dx); COPD with exacerbation ([facility]) Discharge Disposition: Home or Self Care 02/27/2025 Travel 02/24/2025 External Device Data STL ABSTRACTION Provider, Abstract 02/11/2025 1:45 PM CDT Anesthesia Event [facility] Cardiac City Planning Aide [address] [place] [phone] Yaniv Bojorquez II, 02/11/2025 12:00 PM CDT - 02/11/2025 1:[address] [facility] Cardiac City Planning Aide [facility] [place] [address] Juarez Clements MD ICD Insertion 02/11/2025 10:09 AM CDT - 02/11/2025 5:25 PM CDT Hospital Encounter [facility] [address] [place] [address] Juarez Clements MD NYHA class 3 acute on chronic systolic heart failure Discharge Disposition: Home or Self Care 02/09/2025 External Device Data STL ABSTRACTION Provider, Abstract 02/03/2025 11:00 AM CDT Office Visit [facility] [address] [place] [phone] Juarez Clements MD Ischemic dilated cardiomyopathy (CMS/HCC) (Primary Dx); Essential hypertension; Mixed hyperlipidemia; PAF (paroxysmal atrial fibrillation) (CMS/HCC); S/P CABG x 3; Sinus bradycardia; Status post coronary artery bypass graft; Status post ligation of left atrial appendage; ASHD (arteriosclerotic heart disease); Chronic anticoagulation; Chronic combined systolic and diastolic CHF, NYHA class 2 (CMS/HCC) 02/03/2025 Telephone [place] [address] [place] [phone] Hung Lorenzo MD Follow Up 02/03/2025 Prep for Surgery [place] [address] [place] [phone] Juarez Clements MD Ischemic dilated cardiomyopathy (CMS/HCC) (Primary Dx); NYHA class 3 acute on chronic systolic heart failure (CMS/HCC) 02/03/2025 Telephone [facility] [address] [place] [phone] Juarez Clements MD Procedure 02/02/2025 Telephone [place] [address] [place] [phone] Catherine Paul NP Needs Form Or Letter Filled Out; Information (Will have Catherine DE LA PAZ sign/Zoll forms. ) 01/27/2025 Orders Only [place] [address] [place] [phone] Juarez Clements MD Sinus bradycardia (Primary Dx); CAD in [place] artery; S/P CABG (coronary artery bypass graft); Referral of patient 01/26/2025 External Device Data STL ABSTRACTION Provider, Abstract 01/20/2025 Telephone [facility] [address] [facility] [address] [place] [phone] Catherine Paul NP Follow Up (To order cardiac MRI ); Results 01/19/2025 Results Follow-Up [facility] [address] [facility] [address] [place] [phone] Catherine Paul NP ECHOCARDIOGRAM W/ CONTRAST AGENT 01/08/2025 2:18 PM CDT - 01/08/2025 11:59 PM CDT Hospital Encounter [facility] Echo [address] [place] [phone] Hung Lorenzo MD Discharge Disposition: Home or Self Care 01/08/[address] [phone] Raiza Nesbitt FNP S/P CABG x 3 (Primary Dx) from Last 3 Months Immunizations Immunization Administration Dates Next Due INFLUENZA VACCINE HIGH DOSE TRIVALENT SPLIT VIRUS, (65 YR UP), 0.5ML (PF), IM 04/06/2024 Social History Tobacco Use Types Packs/Day Years Used Date Smoking Tobacco: Former Cigarettes Passive Smoke Exposure: Never Smokeless Tobacco: Never Tobacco Cessation:Counseling Given: Not Answered Alcohol Use Standard Drinks/Week Comments Not Currently [...] on file Legal Sex 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 Gender Identity Not on file Sexual Orientation Not on file Last Filed Vital Signs Vital Sign Reading Time Taken Comments Blood Pressure 90/62 03/05/2025 10:07 AM CDT Pulse 91 03/05/2025 10:07 AM CDT Temperature 36.4 C (97.6 F) 02/27/2025 2:30 PM CDT Respiratory Rate 15 02/27/2025 7:30 PM CDT Oxygen Saturation 90% 03/05/2025 10:07 AM CDT Inhaled Oxygen Concentration - - Weight 71.8 kg (158 lb 6.4 oz) 03/05/2025 10:07 AM CDT Height 177.8 cm (5' 10 ) 03/05/2025 10:07 AM CDT Body Mass Index 22.73 03/05/2025 10:07 AM CDT Plan of Treatment Upcoming Encounters Date Type Department Care Team (Late st Contact Info) Description 05/07/2025 8:15 AM OVERLOCK SLEEVE SETTER Appointment [facility] [address] [place] [phone] Catherine Paul NP [address] [place] [address], [address] [place] [phone] 05/28/2025 9:20 AM OVERLOCK SLEEVE SETTER Office Visit [facility] [address] [place] [phone] Catherine Paul NP [address] [place] [address], [address] [place] [phone] 08/11/2025 2:00 PM OVERLOCK SLEEVE SETTER Office Visit [facility] [address] [place] [phone] Juarez Clements MD [address] [place] [address] Geovanna Scherer NP [address] [facility] [address] [place] [phone] Health Maintenance Due Date Last Done Comments DTAP/TDAP/TD VACCINES (1 - Tdap) 1971 PNEUMOCOCCAL VACCINE 50+ YEARS (1 of 2 - PCV) 08/17/18 72 COLORECTAL SCREENING 1997 FIT-DNA Q 3 years 1997 Flex Sig/CT Colonography Q 5 years 1997 ZOSTER VACCINE (1 of 2) 2002 RSV VACCINE (60+ or ) (1 - Risk 60-74 years 1-dose series) 2012 Abdominal Aortic Aneurysm (AAA) Screening 2017 Colorectal Cancer Screening 11/14/2023 FIT/FOBT Q 1 year 11/14/2023 11/13/2022 INFLUENZA VACCINE (#1) 2025 04/06/2024 Medical Devices Implanted Type Area Vascular Manager Device Identifier Shelf Expiration Date Model / Serial / Lot Atriclip Flex-V Claudia Exclusion 45mm Achv45 - [id number] Implanted:Qty : 1 on 08/04/2024 by Jesus Manuel Newton MD at [facility] Cardiovascular Device N/A: Chest [employer] INC [id number] 05/24/2027 [id number] / / [id number] Clip Ligating Horizon Red 991250 - Csc - [id number] Implanted:Qty : 1 on 08/04/2024 by Jesus Manuel Newton MD at [facility] Clip N/A: Chest TELE[employer]LEX INC [id number] 04/23/2029 / / [id number] Clip Ligating Horizon Red 120335 - Csc - [id number] Implanted:Qty : 1 on 08/04/2024 by Jesus Manuel Newton MD at [facility] Clip N/A: Chest TELEFLEX INC [id number] 04/23/2029 / / [id number] Clip Ligating Horizon Red 398742 [place] [facility] [place] [id number] Implanted:Qty : 1 on 08/04/2024 by Jesus Manuel Newton MD at [facility] Clip N/A: Chest TELEFLEX INC [id number] 04/23/2029 [id number] / / [id number] Clip Ligating Horizon Lrg Ti 10.07x12.38mm [id number] - [facility] [place] [id number] Implanted:Qty : 1 on 08/06/2024 by Jesus Manuel Newton MD at [facility] Clip N/A: Neck TELEFLEX- WECK CLOSURE SYS 08/25/2028694007 / / [id number] Clip Ligating Horizon Lrg Ti 10.07x12.38mm [id number] [place] [facility] [place] [id number] Implanted:Qty : 1 on 08/06/2024 by Jesus Manuel Newton MD at [facility] Clip N/A: Neck TELEFLEX- WECK CLOSURE SYS 08/25/2028023484 / / [id number] Dev Closure Angioseal 6fr Vip [id number] - [id number] Implanted:Qty : 1 on 02/04/[address] [facility] Closure Device Left: Groin [facility] [employer] 11/22/2023 [id number] / / [id number] Defib Icd [place] Xt Mri [id number] Df4 Dual Chmbr Surescan [id number] - [id number] Implanted:Qty : 1 on 02/11/2025 by Juarez Clements MD at [facility] Defibrillator Left: Chest Wall MEDTR[employer]IC- CARD RHYTHM MGMT [id number] 05/21/2026 [id number] / [id number] / Graft Vasc Hemashield Gold Knit 442909 - [id number] Implanted:Qty : 1 on 08/04/2024 by Jesus Manuel Newton MD at [facility] Graft N/A: Chest [employer] [id number] 05/23/2028 [id number] / [id number] / [id number] Orthostat 2.0gm Os-201 - [id number] Implanted:Qty : 1 on 08/04/2024 by Jesus Manuel Newton MD at [facility] Hemostatic N/A: Chest ORTHOCON, INC [id number] 03/23/2027 OS- Orthostat 2.0gm Os- - [id number] Implanted:Qty : 1 on 08/04/2024 by Jesus Manuel Newton MD at [facility] Hemostatic N/A: Chest ORTHOCON, INC [id number] 03/23/2027 OS- Lead Pacing Capsure Fix Novus 52cm [id number] - [facility] [place] [id number] Implanted:Qty : 1 on 02/11/2025 by Juarez Clements MD at [facility] Lead Left: Chest Wall [employer]- CRM - BULK BUY [id number] 11/06/2026 [id number] / [id number] / Lead Sprint Quattro Secure 62cm [id number] - [facility] [place] [id number] Implanted:Qty : 1 on 02/11/2025 by Juarez Clements MD at [facility] Lead Left: Chest Wall [employer]- CRM - BULK BUY [id number] 12/03/2026 [id number] / [id number] / Adh Bioglue 10ml Fl1799-5-Nx - [id number] Implanted:Qty : 1 on 08/04/2024 by Jesus Manuel Newton MD at [facility] Sealant N/A: Chest ARTIVION (FKA CRYOLIFE) [id number] 09/20/2025 [id number]- 5-US / / [id number] Stent Lifestent 5fr [id number] 135cm [id number] - [id number] Implanted:Qty : 1 on 02/04/[address] [facility] Stent Right: Leg BARD CAROLYNN VASC 02/02/2025 [id number] / / [id number] Plt Bone H Concave 6h Nst Lf Implanted:Qty : 1 on 08/04/2024 by Jesus Manuel Newton MD at [facility] N/A: Chest MIREYA BIOMET 115.602 .06 / / Plt Bone H Concave 6h Nst Lf Implanted:Qty : 1 on 08/04/2024 by Jesus Manuel Newton MD at [facility] N/A: Chest MIREYA BIOMET 115.602 .06 / / Sternalock Ez 16 Mm Screw Implanted:Qty : 1 on 08/04/2024 by Jesus Manuel Newton MD at [facility] N/A: Chest ZIMMERB IOMET-1 00.035. 16 / / Sternalock Ez 16 Mm Screw Implanted:Qty : 1 on 08/04/2024 by Jesus Manuel Newton MD at [facility] N/A: Chest ZIMMERB IOMET-1 00.035. 16 / / Sternalock Ez 16 Mm Screw Implanted:Qty : 1 on 08/04/2024 by Jesus Manuel Newton MD at [facility] N/A: Chest ZIMMERB IOMET-1 00.035. 16 / / Sternalock Ez 16 Mm Screw Implanted:Qty : 1 on 08/04/2024 by Jesus Manuel Newton MD at [facility] N/A: Chest ZIMMERB IOMET-1 00.035. 16 / / Sternalock Ez 16 Mm Screw Implanted:Qty : 1 on 08/04/2024 by Jesus Manuel Newton MD at [facility] N/A: Chest ZIMMERB IOMET-1 00.035. 16 / / Sternalock Ez 16 Mm Screw Implanted:Qty : 1 on 08/04/2024 by Jesus Manuel Newton MD at [facility] N/A: Chest ZIMMERB IOMET-1 00.035. 16 / / Sternalock Ez 16 Mm Screw Implanted:Qty : 1 on 08/04/2024 by Jesus Manuel Newton MD at [facility] N/A: Chest ZIMMERB IOMET-1 00.035. 16 / / Sternalock Ez 16 Mm Screw Implanted:Qty : 1 on 08/04/2024 by Jesus Manuel Newotn MD at [facility] N/A: Chest ZIMMERB IOMET-1 00.035. 16 / / Sternalock Ez 16 Mm Screw Implanted:Qty : 1 on 08/04/2024 by Jesus Manuel Newton MD at [facility] N/A: Chest ZIMMERB IOMET-1 00.035. 16 / / Sternalock Ez 16 Mm Screw Implanted:Qty : 1 on 08/04/2024 by Jesus Manuel Newton MD at [facility] N/A: Chest ZIMMERB IOMET-1 00.035. 16 / / Sternalock Ez 16 Mm Screw Implanted:Qty : 1 on 08/04/2024 by Jesus Manuel Newton MD at [facility] N/A: Chest ZIMMERB IOMET-1 00.035. 16 / / Screw Bone 18mm Lck Nst Lf Implanted:Qty : 1 on 08/04/2024 by Jesus Manuel Newton MD at [facility] N/A: Chest MIREYA BIOMET 100.035 .18 / / Screw Bone 18mm Lck Nst Lf Implanted:Qty : 1 on 08/04/2024 by Jesus Manuel Newton MD at [facility] N/A: Chest MIREYA BIOMET 100.035 .18 / / Screw Bone 18mm Lck Nst Lf Implanted:Qty : 1 on 08/04/2024 by Jesus Manuel Newton MD at [facility] N/A: Chest MIREYA BIOMET 100.035 .18 / / Screw Bone 18mm Lck Nst Lf Implanted:Qty : 1 on 08/04/2024 by Jesus Manuel Newton MD at [facility] N/A: Chest MIREYA BIOMET 100.035 .18 / / Screw Bone 18mm Lck Nst Lf Implanted:Qty : 1 on 08/04/2024 by Jesus Manuel Newton MD at [facility] N/A: Chest MIREYA BIOMET 100.035 .18 / / Screw Bone 18mm Lck Nst Lf Implanted:Qty : 1 on 08/04/2024 by Jesus Manuel Newton MD at [facility] N/A: Chest MIREYA BIOMET 100.035 .18 / / Screw Bone 16mm Lck Nst Lf Implanted:Qty : 1 on 08/04/2024 by Jesus Manuel Newton MD at [facility] N/A: Chest MIREYA BIOMET 100.035 .16 / / Procedures Procedure Name Priority Date/Time Associated Diagnosis Comments FL PROGRAM EVAL IMPLANT DEVICE,CARDVERT/DEFI B,2 LEAD WITHIN GLOBAL Routine 03/10/2025 2:03 PM CDT Sick sinus syndrome (CMS/HCC) Atrial fibrillation, unspecified type (CMS/HCC) Ischemic dilated cardiomyopathy (CMS/HCC) Automatic implantable cardioverter-defibri llator in situ BRAIN NATRIURETIC PEPTIDE, BNP OR PROBNP Stat 02/27/2025 5:22 PM CDT TROPONIN 2 HR, 5TH GEN Timed Study 02/27/2025 5:22 PM CDT XR CHEST PA OR AP 1 VW Stat 02/27/2025 3:09 PM CDT TROPONIN BASELINE, 5TH GEN Stat 02/27/2025 2:57 PM CDT MAGNESIUM LEVEL Stat 02/27/2025 2:57 PM CDT COMPREHENSIVE METABOLIC PANEL Stat 02/27/2025 2:57 PM CDT CBC WITH DIFFERENTIAL Stat 02/27/2025 2:57 PM CDT EKG 12-LEAD Stat 02/27/2025 2:44 PM CDT TELEMETRY REPORT 02/12/2025 11:49 AM CDT XR CHEST PA AND LATERAL 2 VW Stat 02/11/2025 4:02 PM CDT ICD INSERTION W ANES Routine 02/11/2025 2:32 PM CDT Ischemic dilated cardiomyopathy (CMS/HCC) NYHA class 3 acute on chronic systolic heart failure (CMS/HCC) XR CHEST PA OR AP 1 VW Pending Discharge 02/11/2025 11:09 AM CDT EKG 12-LEAD Pending Discharge 02/11/2025 10:57 AM CDT BASIC METABOLIC PANEL Routine 02/11/2025 10:57 AM CDT PROTIME-INR Routine 02/11/2025 10:57 AM CDT CBC WITH DIFFERENTIAL Routine 02/11/2025 10:57 AM CDT FL ECG ROUTINE ECG W/LEAST 12 LDS W/I&R Routine 02/03/2025 11:02 AM CDT Sinus bradycardia CAD in [place] artery S/P CABG (coronary artery bypass graft) Referral of patient ECHOCARDIOGRAM W/ CONTRAST AGENT Routine 01/08/2025 3:27 PM CDT CAD in [place] artery S/P CABG (coronary artery bypass graft) Benign hypertension Hyperlipidemia, unspecified hyperlipidemia type OCCULT BLOOD IMMUNOASSAY, COLORECTAL SCREEN Routine 11/13/2022 12:00 AM CDT Encounter for colorectal cancer screening from Last 3 Months or Most Recently Relevant to Health Maintenance Results * FL PROGRAM EVAL IMPLANT DEVICE,CARDVERT/DEFIB,2 LEAD WITHIN GLOBAL (03/10/2025 2:03 PM CDT) Narrative [facility] - 03/10/2025 2:03 PM CDT Elva Alvarez RN 03/10/2025 2:16 PM Office Device Check Report Date of Procedure: March 10, 2025 Events: Atrial: 5 (0.3%)Pt has Hx of AF and is on Eliquis Ventricular: no tachyarrhythmias detected, no therapies delivered Other Episodes: None Changes: None Comments: Comes to Device office for 3 week post ICD implant evaluation. L upper chest incision intact, edges well approximated, without redness or drainage, denies fever or chills. Presenting - Sinus rhythm 70's/min. Thresholds and impedance stable. Normal dual chamber ICD function. Instructed patient re: incision care, arm restrictions and recommended follow up. [facility] remote f/u reviewed. [facility]. Patient verbalized understanding of all instructions. F/U with EP office in 3 months. See attached report for details. Procedure Note Elva Alvarez RN - 03/10/2025 2:03 PM CDT Images from the original note were not included. Office Device Check Report Date of Procedure: March 10, 2025 Events: Atrial: 5 (0.3%)Pt has Hx of AF and is on Eliquis Ventricular: no tachyarrhythmias detected, no therapies delivered Other Episodes: None Changes: None Comments: Comes to Device office for 3 week post ICD implant evaluation. L upperchest incision intact, edges well approximated, without redness ordrainage, denies fever or chills. Presenting - Sinus rhythm 70's/min.Thresholds and impedance stable. Normal dual chamber ICD function.Instructed patient re: incision care, arm restrictions and recommendedfollow up. [facility] remote f/u reviewed. Enrolled in [employer].Patient verbalized understanding of all instructions. F/U with EP officein 3 months. See attached report for details. Juarez Clements MD CARDIAC SERVICES ORDERA PRASANTH Final Result Performing Organization Address [facility] Co de Phone Number [facility] [address] [facility] [place] [facility] [address] * (ABNORMAL) TROPONIN 2 HR, 5TH GEN (02/27/2025 5:22 PM CDT) TROPONIN T, 2 HR 5TH GEN 74(H) <=15 ng/L 02/27/2025 6:23 PM CDT [facility] DELTA 2HR TROPONIN T -5 See Interp. 02/27/2025 6:23 PM CDT [facility] Blood Venipuncture / Unknown 02/27/2025 5:22 PM CDT 02/27/2025 5:53 PM CDT Narrative [facility] - 02/27/2025 6:23 PM CDT Troponin elevated. Delta indeterminate. Delay in collection of timed specimen beyond recommended collection interval. Results must be interpreted in clinical context. Shilpa Vaz APRN CHEMISTRY ORDERABLES Lady burns Result Performing Organization Address [facility] Co de Phone Number [facility] [employer] [facility] CLIA # [id number] [address] [address] [place] [address] * (ABNORMAL) BRAIN NATRIURETIC PEPTIDE, BNP OR PROBNP (02/27/2025 5:22 PM CDT) PROBNP, N TERMINAL 6,837(H) 0 - 125 pg/mL 02/27/2025 6:33 PM CDT [facility] [employer] [facility] Comment: INTERPRETIVE COMMENT based on diagnosis: Diagnostic NT pro-BNP cutoffs for Heart Failure in the absence of renal failure is suggested for the following ranges <75 years: <125 pg/mL >=75 years: <450 pg/mL Exclusionary rule out cut-point for Acute Decompensated Heart Failure(ADHF) All ages: <300 pg/mL Diagnostic NT pro-BNP cutoffs for Acute Decompensated Heart Failure(ADHF) in the absence of renal failure is suggested for the following ages <50 years: > 450 pg/mL 50-75 years: > 900 pg/mL >75 years: >1800 pg/mL Blood Venipuncture / Unknown 02/27/2025 5:22 PM CDT 02/27/2025 5:53 PM CDT us Naveen Morin MD CHEMISTRY ORDERABLES Final Re sult Performing Organization Address [facility] Co de Phone Number [facility] [employer] [facility] CLIA # [id number] [facility] [address] * XR CHEST PA OR AP 1 VW (02/27/2025 3:09 PM CDT) Only the most recent of2 resultswithin the time period is included. Anatomical Region Laterality Modality Chest Computed Radiogr aphy 02/27/2025 3:09 PM CDT Impressions 02/27/2025 3:15 PM CDT IMPRESSION: Emphysema without evidence of an acute infiltrate. Narrative 02/27/2025 3:15 PM CDT XR CHEST PA OR AP 1 VW Reason For Exam: Shortness of Breath SOB. Diagnosis: See Reason for Exam. COMPARISON: 02/11/2025 FINDINGS: Pacer is in place. Emphysematous changes are again noted. Cardiomediastinal silhouette is within normal limits. No focal consolidation, large pleural effusion, or pneumothorax is seen. No acute osseous abnormality is appreciated. Procedure Note Matthew Turner MD - 02/27/2025 XR CHEST PA OR AP 1 VW Reason For Exam: Shortness of Breath SOB. Diagnosis: See Reason for Exam. COMPARISON: 02/11/2025 FINDINGS: Pacer is in place. Emphysematous changes are again noted. Cardiomediastinal silhouette is within normal limits. No focal consolidation, large pleural effusion, or pneumothorax is seen. No acute osseous abnormality is appreciated. IMPRESSION: Emphysema without evidence of an acute infiltrate. Shilpa Vaz APRN DIAGNOSTIC IMAGING ORDERA BLES Final Result * (ABNORMAL) TROPONIN BASELINE, 5TH GEN (02/27/2025 2:57 PM CDT) Pathologist [facility] TROPONIN T, BASELINE 5TH GEN 79(H) <=15 ng/L 02/27/2025 3:33 PM CDT [facility] Blood Venipuncture / Unknown 02/27/2025 2:57 PM CDT 02/27/2025 3:03 PM CDT Narrative [facility] - 02/27/2025 3:33 PM CDT Troponin elevated. Shilpa Vaz APRN CHEMISTRY ORDERABLES Lady l Result [facility] CLIA # [id number] [facility] [address] [place], [place] [id number] * (ABNORMAL) CBC WITH DIFFERENTIAL (02/27/2025 2:57 PM CDT) Only the most recent of2 resultswithin the time period is included. Pathologist [facility] WBC 7.1 4.8 - 10.8 K/uL 02/27/2025 3:06 PM [facility] RBC 4.51(L) 4.60 - 6.20 M/uL 02/27/2025 3:06 PM [facility] HEMOGLOBIN 12.6(L) 14.0 - 18.0 g/dL 02/27/2025 3:06 PM [facility] HEMATOCRIT 39.7(L) 41.0 - 53.0 % 02/27/2025 3:06 PM [facility] MCV 88.0 84.0 - 103.0 fL 02/27/2025 3:06 PM [facility] MCH 27.9 27.0 - 34.0 pg 02/27/2025 3:06 PM [facility] MCHC 31.7 30.0 - 35.0 g/dL 02/27/2025 3:06 PM [facility] PLATELETS 181 140 - 440 K/uL 02/27/2025 3:06 PM [facility] MPV 10.6 8.9 - 12.8 fL 02/27/2025 3:06 PM [facility] RDW 15.6(H) 11.0 - 14.5 % 02/27/2025 3:06 PM [facility] RDW-STDEV 49.0 37.0 - 54.0 fL 02/27/2025 3:06 PM [facility] NEUTROPHILS 73 42 - 75 % 02/27/2025 3:06 PM [facility] LYMPHOCYTES 16(L) 24 - 44 % 02/27/2025 3:06 PM [facility] MONOCYTES 8 2 - 10 % 02/27/2025 3:06 PM [facility] EOSINOPHILS 2 0 - 7 % 02/27/2025 3:06 PM [facility] BASOPHILS 1 0 - 1 % 02/27/2025 3:06 PM [facility] IMMATURE GRANULOCYTES 0 0 - 2 % 02/27/2025 3:06 PM [facility] NEUTROPHIL ABSOLUTE 5.18 2.00 - 8.00 K/uL 02/27/2025 3:06 PM CDT [facility] LYMPHOCYTE ABSOLUTE 1.11(L) 1.20 - 4.00 K/uL 02/27/2025 3:06 PM CDT [facility] MONOCYTE ABSOLUTE 0.57 0.10 - 0.60 K/uL 02/27/2025 3:06 PM CDT [facility] EOSINOPHIL ABSOLUTE 0.13 0.00 - 0.70 K/uL 02/27/2025 3:06 PM CDT [facility] BASOPHILS ABSOLUTE 0.04 0.00 - 0.20 K/uL 02/27/2025 3:06 PM CDT [facility] IMMATURE GRANULOCYTES ABSOLUTE 0.03 0.00 - 0.10 K/uL 02/27/2025 3:06 PM CDT [facility] SMEAR REVIEWED: NA - Not Applicable 02/27/2025 3:06 PM CDT [facility] Blood Venipuncture / Unknown 02/27/2025 2:57 PM CDT 02/27/2025 3:03 PM CDT Shilpa Vaz APRN HEMATOLOGY ORDERABLES Fin al Result Performing Organization Address [facility]/ZIP Co de Phone Number [facility] CLIA # [id number] [address] [place] [address] * MAGNESIUM LEVEL (02/27/2025 2:57 PM CDT) Pathologist [facility] MAGNESIUM 2.3 1.6 - 2.4 mg/dL 02/27/2025 3:43 PM CDT [facility] Blood Venipuncture / Unknown 02/27/2025 2:57 PM CDT 02/27/2025 3:03 PM CDT Shilpa Vaz APRN CHEMISTRY ORDERABLES Lady l Result [facility] MANJINDER # [id number] [address] [address] [place] [address] * (ABNORMAL) COMPREHENSIVE METABOLIC PANEL (02/27/2025 2:57 PM CDT) SODIUM 138 136 - 145 mmol/L 02/27/2025 3:43 PM CDT [facility] POTASSIUM 4.6 3.5 - 5.1 mmol/L 02/27/2025 3:43 PM CDT [facility] CHLORIDE 102 98 - 107 mmol/L 02/27/2025 3:43 PM CDT [facility] CO2 25 22 - 29 mmol/L 02/27/2025 3:43 PM CDT [facility] CALCIUM 9.4 8.8 - 10.2 mg/dL 02/27/2025 3:43 PM CDT [facility] BUN 14 8 - 23 mg/dL 02/27/2025 3:43 PM CDT [facility] CREATININE 0.85 0.67 - 1.17 mg/dL 02/27/2025 3:43 PM CDT [facility] Comment:The GFR result is no t clinically significant on patients <18 or >70 years of age. GLUCOSE 93 74 - 99 mg/dL 02/27/2025 3:43 PM CDT [facility] TOTAL PROTEIN 6.7 6.4 - 8.3 g/dL 02/27/2025 3:43 PM CDT [facility] ALBUMIN 3.8 3.5 - 5.2 g/dL 02/27/2025 3:43 PM CDT [facility] BILIRUBIN TOTAL 0.9 0.0 - 1.0 mg/dL 02/27/2025 3:43 PM CDT [facility] ALKALINE PHOSPHATASE 146(H) 40 - 129 U/L 02/27/2025 3:43 PM CDT [facility] AST 27 10 - 50 U/L 02/27/2025 3:43 PM CDT [facility] ALT 19 <=50 U/L 02/27/2025 3:43 PM CDT [facility] GFR >60 mL/min/1.7 3 sq meter 02/27/2025 3:43 PM CDT [facility] Comment:eGFR calculated with 2020 CKD-EPI equation. Vegetarian diet, extremely high or low muscle mass, and may affect results. Cystatin C with Glomerular Filtration Rate is a suitable alternative for these patients. ANION GAP 11 9 - 20 mmol/L 02/27/2025 3:43 PM CDT [facility] Blood Venipuncture / Unknown 02/27/2025 2:57 PM CDT 02/27/2025 3:03 PM CDT us Shilpa Vaz SALES ADMINISTRATOR CHEMISTRY ORDERABLES Lady burns Result [facility] CLIA # [id number] [address] [address] * EKG 12-LEAD (02/27/2025 2:44 PM CDT) Only the most recent of3 resultswithin the time period is included. 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: [id number] : 1950 Requested By: Order Number: [id number] Reading MD: Joseline Butts Measurements Intervals [place] Rate: 102 P: 74 FL: 172 QRS: 100 QRSD: 96 T: 240 QT: 372 QTc: 484 Interpretive Statements Sinus tachycardia Septal infarct, age undetermined Lateral infarct, age undetermined ST & T wave abnormality, consider inferior ischemia Abnormal ECG Electronically Signed On 02-28-2025 13:12:48 CDT by Joseline Butts us Naveen Morin MD ECG ORDERABLES Final Result INTERFACE SYSTEM Refer to clinic/hospital department * TELEMETRY REPORT (02/12/2025 11:49 AM CDT) us Provider Scanning ECG ORDERABLES Final Result * XR CHEST PA AND LATERAL 2 VW (02/11/2025 4:02 PM CDT) Anatomical Region Laterality Modality Chest Computed Radiogr aphy 02/11/2025 4:02 PM CDT Impressions 02/11/2025 4:25 PM CDT IMPRESSION: Please see below. Exam: XR CHEST PA AND LATERAL 2 VW Date/Time of Exam: 02/11/2025 4:02 PM REASON FOR EXAM: Post-Operative. DIAGNOSIS: ICD (implantable cardioverter-defibrillator) in place; Ischemic dilated cardiomyopathy (CMS/HCC); Ischemic dilated cardiomyopathy (CMS/HCC); NYHA class 3 acute on chronic systolic heart failure (CMS/HCC). Findings: Comparison is made to the prior exam from earlier same day. A left subclavian AICD has been placed. There is no postprocedural pneumothorax. The lungs remain clear and hyperinflated. The cardiac mediastinal silhouette is stable in appearance. IMPRESSION: No postprocedural complications after placement of a left subclavian AICD. Narrative Procedure Note Puneet Hunt MD - 02/11/2025 IMPRESSION: Please see below. Exam: XR CHEST PA AND LATERAL 2 VW Date/Time of Exam: 02/11/2025 4:02 PM REASON FOR EXAM: Post-Operative. DIAGNOSIS: ICD (implantable cardioverter-defibrillator) in place; Ischemic dilated cardiomyopathy (CMS/HCC); Ischemic dilated cardiomyopathy (CMS/HCC); NYHA class 3 acute on chronic systolic heart failure (CMS/HCC). Findings: Comparison is made to the prior exam from earlier same day. A left subclavian AICD has been placed. There is no postprocedural pneumothorax. The lungs remain clear and hyperinflated. The cardiac mediastinal silhouette is stable in appearance. IMPRESSION: No postprocedural complications after placement of a left subclavian AICD. Juarez Clements MD DIAGNOSTIC IMAGING ISABELLE SAMAYOA Final Result * ICD INSERTION W ANES (02/11/2025 2:32 PM CDT) Narrative [facility] - 02/11/2025 2:41 PM CDT Summary: 1. Successful Dual Chamber ICD Implant (MRI Compatible) Estimated Blood Loss There was minimal blood loss during procedure. Procedure Details [facility] Clinical Cardiac Electrophysiology Device Report Procedures: 1. Medtronic Dual Chamber ICD Implant 2. Contrast Venography 3. Left Subclavian Vein Access 4. Device Interrogation 5. Conscious Sedation (performed by Anesthesia) 6. Fluoroscopy with Interpretation Operators: 1. Juarez Clements MD, [facility], [facility] - Clinical Cardiac Electrophysiology Indication: 74 y/o WM with h/o IDCM, CAD, NYHA Class III HF, PAF, SSS, and EF < 35% despite OMT > 3 months presents for a dual chamber ICD for primary prevention and sick sinus syndrome. Procedure Description: After the patient was informed and consented in regards to the risks, benefits, and alternatives to the procedure, the patient was brought to the EP lab in a fasting, non-sedated state. Conscious sedation was administered under the supervision of the Anesthesia service. Contrast injection of the left subclavian vein was performed, which was patent. After appropriate antiseptic prep and with carolynn-operative antibiotics infusing and using local anesthesia, cutdown to the deltopectoral fascia was performed using blunt dissection and electrocautery. Access was obtained via the left subclavian vein. A subcutaneous pocket was fashioned. Under fluoroscopic guidance, the leads were placed in the RA appendage and RV apical positions. The leads were sutured with ethabond and the pocket was irrigated with antibiotic/saline solution. The pacing parameters were tested as described below. The generator was placed in the pocket. The pocket was closed with multiple layers of absorbable suture and dermabond was applied. After the procedure, the patient was returned to the observation area with routine post operative antibiotics and analgesia. EBL = < 30 cc. Device Model: Medtronic [place] XT DR DERRICK [employer]und [id number] ATRIAL Lead: EDSON [id number] Pacing Threshold: 0.5V @ 0.4ms Impedance: 551 ohms P wave: 2.0 mV RIGHT VENTRICULAR Lead: EDSON [id number] Pacing Threshold: 0.5V @ 0.4ms Impedance: 570 ohms R wave: 9.5 mV Complications: None Summary: 1. Successful Dual Chamber ICD Implant (MRI Compatible) Juarez Clements MD, [facility], [facility] Clinical Cardiac Electrophysiology Security Supervisor of Clinical Medicine [facility] Procedural Indications 74 y/o WM with h/o IDCM, CAD, NYHA Class III HF, PAF, SSS, and EF < 35% despite OMT > 3 months presents for a dual chamber ICD for primary prevention and sick sinus syndrome. Juarez Clements MD [facility] EP ORDERABLES Final Result [facility] CARDIOLOGY [facility] [id number] [address] [facility] [address] [place] [id number], [place] [phone] * PROTIME-INR (02/11/2025 10:57 AM CDT) PROTIME 13.9 12.7 - 14.9 Seconds 02/11/2025 11:13 AM CDT [facility] LABORATORY SERVICES [facility] INR 1.0 0.8 - 1.2 02/11/2025 11:13 AM CDT [facility] Blood Venipuncture / Unknown 02/11/2025 10:57 AM CDT 02/11/2025 10:[address] [facility] - 02/11/2025 11:13 AM CDT Expected Values for INR: DVT/PE Goal INR 2.5; range 2.0 - 3.0 Valve Replacement Tissue Goal INR 2.5; range 2.0 - 3.0 Valve Replacement Mechanical Goal INR 3.0; range 2.5 - 3.5 POST-OK Goal INR 2.5; range 2.0 - 3.0 or Goal INR 3.0; range 2.5 - 3.5 Atrial Fibrillation Goal INR 2.5; range 2.0 - 3.0 Ischemic Stroke Goal INR 2.5; range 2.0 - 3.0 Juarez Clements MD HEMATOLOGY ORDERABLES F inal Result [facility] CLIA # [id number] [address] [address] [place] [address] * BASIC METABOLIC PANEL (02/11/2025 10:57 AM CDT) SODIUM 140 136 - 145 mmol/L 02/11/2025 11:34 AM T [facility] POTASSIUM 4.5 3.5 - 5.1 mmol/L 02/11/2025 11:34 AM T [facility] CHLORIDE 104 98 - 107 mmol/L 02/11/2025 11:34 AM T [facility] CO2 27 22 - 29 mmol/L 02/11/2025 11:34 AM CDT [facility] CALCIUM 9.2 8.8 - 10.2 mg/dL 02/11/2025 11:34 AM T [facility] BUN 19 8 - 23 mg/dL 02/11/2025 11:34 AM T [facility] CREATININE 0.89 0.67 - 1.17 mg/dL 02/11/2025 11:34 AM T [facility] Comment:The GFR result is no t clinically significant on patients <18 or >70 years of age. GLUCOSE 99 74 - 99 mg/dL 02/11/2025 11:34 AM T [facility] GFR >60 mL/min/1.7 3 sq meter 02/11/2025 11:34 AM T [facility] Comment:eGFR calculated with 2020 CKD-EPI equation. Vegetarian diet, extremely high or low muscle mass, and may affect results. Cystatin C with Glomerular Filtration Rate is a suitable alternative for these patients. ANION GAP 9 9 - 20 mmol/L 02/11/2025 11:34 AM T [facility] Blood Venipuncture / Unknown 02/11/2025 10:57 AM CDT 02/11/2025 10:59 AM CDT Juarez Clements MD CHEMISTRY ORDERABLES Fi nal Result [facility] CLIA # [id number] [address] [id number] * ECHOCARDIOGRAM W/ CONTRAST AGENT (01/08/2025 3:27 PM CDT) EJECTION FRACTION 20 INTERFACE SYSTEM 01/08/2025 2:40 PM CDT Narrative INTERFACE SYSTEM - 01/08/2025 4:[address] [facility] Cardiovascular Services Echocardiography Laboratory [address] [place] [address] Limited Transthoracic Echocardiography Patient: Shilpa Dahl Study ID: ECHO LIMITED Anamaria Obrien Gender: Kimberly : 1950 Age: 74 Room: [facility] Study 01/08/2025 Pt Outpatient Date: Status: Study 02:40:17 PM CSN #: [id number] Time: Ordering:Hung [employer] Superintendent: Juan Salazar [facility] Indications and History: Dx: CAD in [place] artery [I25.10 (ICD-10-CM)]; S/P CABG (coronary artery bypass graft) [Z95.1 (ICD-10-CM)]; Benign hypertension [I10 (ICD-10-CM)]; Hyperlipidemia, unspecified hyperlipidemia type [E78.5 (ICD-10-CM)] Summary and Conclusion: - Study data: A limited echo was performed - Left ventricle: The cavity size is dilated. Global systolic function is severely reduced. For Epic reporting: the left ventricular ejection fraction is 20% by biplane method of disks. There is diffuse hypokinesis with regional variations. Probable akinesis of the apical and periapical scott. Regional wall motion difficult to determine despite echo contrast. Ill defined echodensity seen at the apex, may represent trabeculations but cannot exclude an apical thrombus. Procedure information: Comparison is made to the study of 08/11/2024. Study status: Routine. Procedure: A transthoracic echocardiogram was performed. Image quality was adequate. Scanning was performed from the parasternal, apical, and subcostal acoustic windows. Intravenous contrast (Definity) was administered. There were no complications. There were no contrast reactions. A limited echo was performed Study components: M-mode, limited 2D, limited spectral Doppler, and color Doppler. Height: 177.8cm. Height: 70in. Weight: 69.9kg. Weight: 154lb. BMI: 22.1kg/m^2. BSA: 1.86m^2. Blood pressure: 71/49 Study date: 01/08/2025. Study time: 02:40 PM. Location: Echo laboratory. Cardiac Anatomy: LEFT VENTRICLE: Not well visualized. The cavity size is dilated. Global systolic function is severely reduced. For Epic reporting: the left ventricular ejection fraction is 20% by biplane method of disks. There is diffuse hypokinesis with regional variations. Regional wall motion difficult to determine despite echo contrast. Ill defined echodensity seen at the apex, may represent trabeculations but cannot exclude an apical thrombus. Regional wall motion abnormalities: Probable akinesis of the apical and periapical scott. MITRAL VALVE: Not well visualized. The annulus is moderately calcified. Measurements Left ventricle Value Left ventricle continued Value CAILIN, LAX 5.4 cm ESV/bsa, 1-p A2C 6 ml/m^2 ESD, LAX 4.0 cm SV/bsa, 1-p A2C 37.4 ml/m^2 CAILIN/bsa, LAX 2.9 cm/m^2 EDV, 1-p A4C 116 ml ESD/bsa, LAX 2.1 cm/m^2 ESV, 1-p A4C 98 ml FS, LAX 26 % EF, 1-p A4C 15 % FS, LAX chord 26 % SV, 1-p A4C 18 ml ESD major ax, A4C 6.8 cm EDV/bsa, 1-p A4C 63 ml/m^2 ESD/bsa major ax, A4C 3.7 cm/m^2 ESV/bsa, 1-p A4C 53 ml/m^2 CAILIN minor ax, A4C 6.8 cm SV/bsa, 1-p A4C 10 ml/m^2 CAILIN/bsa minor ax, A4C 3.7 cm/m^2 EDV, 2-p 88 ml CAILIN major ax, A2C 7.4 cm ESV, 2-p 71 ml ESD major ax, A2C 6.4 cm EF, 2-p 20 % CAILIN/bsa major ax, A2C 4.0 cm/m^2 SV, 2-p 49 ml ESD/bsa major ax, A2C 3.4 cm/m^2 EDV/bsa, 2-p 48 ml/m^2 IVS, ED 0.8 cm ESV/bsa, 2-p 38 ml/m^2 ESD 4.0 cm SV/bsa, 2-p 26.3 ml/m^2 ESD/bsa 2.1 cm/m^2 EDV, MM Teich. 139 ml FS 26 % EF, MM Teich. 50 % PW, ED 1.0 cm EDV/bsa, MM Teich. 75 ml/m^2 IVS/PW, ED 0.83 EF, MM on 2D Teich. 50 % EDV 139 ml ESV 69 ml Right ventricle Value EF 50 % CAILIN, LAX 2.6 cm SV 69 ml CAILIN 2.6 cm EDV/bsa 75 ml/m^2 ESV/bsa 37 ml/m^2 Left atrium Value SV/bsa 37 ml/m^2 AP dim, ES 3.1 cm EDV, 1-p A2C 60 ml AP dim index, ES 1.7 cm/m^2 ESV, 1-p A2C 12 ml EF, 1-p A2C 19 % Mitral valve Value SV, 1-p A2C 69 ml Vena contracta width 2.6 cm EDV/bsa, 1-p A2C 32 ml/m^2 Legend: (L) and (H) farhan values outside specified reference range. [facility] Echo Labs are accredited with the Intersocietal Accreditation Commission - Echocardiography. Prepared and Electronically Authenticated Rocky Petersen Confirmed 01/08/2025 16:57 Procedure Note Rocky Petersen MD - 01/08/2025 [facility] Cardiovascular Services Echocardiography Laboratory [address] [place] [id number] Limited Transthoracic Echocardiography Patient: Shilpa Dahl Study ID: JERRY KOFI Obrien Gender: Kimberly : 1950 Age: 74 Room: [facility] Study 01/08/2025 Pt Outpatient Date: Status: Study 02:40:17 PM CSN #: [id number] Time: Ordering:Hung Lorenzo [employer] Superintendent: Juan Salazar [facility] Indications and History: Dx: CAD in [place] artery [I25.10 (ICD-10-CM)];S/P CABG (coronary artery bypass graft) [Z95.1 (ICD-10-CM)]; Benignhypertension [I10 (ICD-10-CM)]; Hyperlipidemia, unspecified hyperlipidemia type[E78.5 (ICD-10-CM)] Summary and Conclusion: - Study data: A limited echo was performed - Left ventricle: The cavity size is dilated. Global systolic functionis severely reduced. For Epic reporting: the left ventricular ejectionfraction is 20% by biplane method of disks. There is diffuse hypokinesis with regional variations. Probable akinesis of the apical and periapicalwalls. Regional wall motion difficult to determine despite echo contrast. Ill defined echodensity seen at the apex, may represent trabeculations but cannot exclude an apical thrombus. Procedure information: Comparison is made to the study of 08/11/2024.Study status: Routine. Procedure: A transthoracic echocardiogram wasperformed. Image quality was adequate. Scanning was performed from the parasternal, apical, and subcostal acoustic windows. Intravenous contrast (Definity)was administered. There were no complications. There were no contrastreactions. A limited echo was performed Study components: M-mode, [id number], limited spectral Doppler, and color Doppler. Height: 177.8cm. Height:70in. Weight: 69.9kg. Weight: 154lb. BMI: 22.1kg/m^2. BSA: 1.86m^2. Blood pressure: 71/49 Study date: 01/08/2025. Study time: 02:40PM. Location: Echo laboratory. Cardiac Anatomy: LEFT VENTRICLE: Not well visualized. The cavity size is dilated. Global systolic function is severely reduced. For Epic reporting: the left ventricular ejection fraction is 20% by biplane method of disks. Thereis diffuse hypokinesis with regional variations. Regional wall motiondifficult to determine despite echo contrast. Ill defined echodensity seen at theapex, may represent trabeculations but cannot exclude an apical thrombus.Regional wall motion abnormalities: Probable akinesis of the apical andperiapical scott. MITRAL VALVE: Not well visualized. The annulus is moderately calcified. Measurements Left ventricle Value Left ventricle continued Value CAILIN, LAX 5.4 cm ESV/bsa, 1-p A2C 6ml/m^2 ESD, LAX 4.0 cm SV/bsa, 1-p A2C 37.4ml/m^2 CAILIN/bsa, LAX 2.9 cm/m^2 EDV, 1-p A4C 116 ml ESD/bsa, LAX 2.1 cm/m^2 ESV, 1-p A4C 98 ml FS, LAX 26 % EF, 1-p A4C 15 % FS, LAX chord 26 % SV, 1-p A4C 18 ml ESD major ax, A4C 6.8 cm EDV/bsa, 1-p A4C 63ml/m^2 ESD/bsa major ax, A4C 3.7 cm/m^2 ESV/bsa, 1-p A4C 53ml/m^2 CAILIN minor ax, A4C 6.8 cm SV/bsa, 1-p A4C 10ml/m^2 CAILIN/bsa minor ax, A4C 3.7 cm/m^2 EDV, 2-p 88 ml CAILIN major ax, A2C 7.4 cm ESV, 2-p 71 ml ESD major ax, A2C 6.4 cm EF, 2-p 20 % CAILIN/bsa major ax, A2C 4.0 cm/m^2 SV, 2-p 49 ml ESD/bsa major ax, A2C 3.4 cm/m^2 EDV/bsa, 2-p 48ml/m^2 IVS, ED 0.8 cm ESV/bsa, 2-p 38ml/m^2 ESD 4.0 cm SV/bsa, 2-p 26.3ml/m^2 ESD/bsa 2.1 cm/m^2 EDV, MM Teich. 139 ml FS 26 % EF, MM Teich. 50 % PW, ED 1.0 cm EDV/bsa, MM Teich. 75ml/m^2 IVS/PW, ED 0.83 EF, MM on 2D Teich. 50 % EDV 139 ml ESV 69 ml Right ventricle Value EF 50 % CAILIN, LAX 2.6 cm SV 69 ml CAILIN 2.6 cm EDV/bsa 75 ml/m^2 ESV/bsa 37 ml/m^2 Left atrium Value SV/bsa 37 ml/m^2 AP dim, ES 3.1 cm EDV, 1-p A2C 60 ml AP dim index, ES 1.7cm/m^2 ESV, 1-p A2C 12 ml EF, 1-p A2C 19 % Mitral valve Value SV, 1-p A2C 69 ml Vena contracta width 2.6 cm EDV/bsa, 1-p A2C 32 ml/m^2 Legend: (L) and (H) farhan values outside specified reference range. [facility] are accredited with the[facility] Accreditation Commission - Echocardiography. Prepared and Electronically Authenticated Rocky Petersen Confirmed 01/08/2025 16:57 Hung Lorenzo MD ORDERABLES Final Result INTERFACE SYSTEM Refer to clinic/hospital department * OCCULT BLOOD IMMUNOASSAY, COLORECTAL SCREEN (11/13/2022 12:00 AM CDT) FECAL GLOBIN SEE NOTE [employer] [facility] [facility] Comment: FECAL GLOBIN BY IMMUNOCHEMISTRY Micro Number: [id number] Test Status: Final Specimen Source: Stool Specimen Quality: Adequate Fecal Globin: Not Detected Test Performed at: [facility] [id number] [place] [address] Hussein Sherwood MD Stool STOOL SPECIMEN / Unknown 11/13/2022 11/26/2022 12:19 PM CDT Kiya York DIRECTOR OF ENVIRONMENTAL SERVICES BODY FLUIDS AND STOOLS Final Result Performing Organization Address City/[facility]/ZIP Co de Phone Number [facility] [phone] [facility] [id number] [place] [phone] from Last 3 Months or Most Recently Relevant to Health Maintenance Insurance [place]ICA[place] [employer] [facility] Advance Directives For more information, please contact: [phone] * Full Code (Latest Code Status on File) Date Activated Date Inactivated Comments 02/11/2025 3:12 PM 02/11/2025 7:34 PM * Full Code Date Activated Date Inactivated Comments 02/11/2025 10:19 AM 02/11/2025 3:12 PM * Full Code Date Activated Date Inactivated Comments 08/15/2024 5:59 PM 08/15/2024 7:28 PM * Full Code Date Activated Date Inactivated Comments 08/15/2024 5:34 PM 08/15/2024 5:48 PM * Full Code Date Activated Date Inactivated Comments 08/04/2024 3:56 PM 08/13/2024 3:56 PM
--- NOTE | 2025-04-03 06:58 | W.ED.GENADLT ---
HPI - General Adult General: Chief complaint: Shortness of Breath/Dyspnea Stated complaint: sob Time Seen by Provider: 04/03/25 06:50 History of Present Illness: 72-year-old male history of COPD and CHF presents emergency room with complaint of shortness of breath noted when he first woke up this morning no chest pain. He was recently discharged from the hospital. He was given albuterol and route he states he feels much better he still little bit tachypneic when he arrives here he has a chronic baseline cough which remains unchanged. Denies any abdominal pain no fever sweats or chills no hemoptysis Associated symptoms: Reports dyspnea; Deny chest pain or rash Related Data Home Medications ?Medication ?Instructions ?Recorded ?Confirmed apixaban 5 mg tablet (Eliquis) 5 mg PO BID 04/01/25 04/03/25 empagliflozin 10 mg tablet 10 mg PO DAILY 04/01/25 04/03/25 (Jardiance) ferrous sulfate 325 mg (65 mg 325 mg PO DAILY 04/01/25 04/03/25 iron) tablet (FeroSul) tamsulosin 0.4 mg capsule 0.4 mg PO DAILY 04/01/25 04/03/25 Previous Rx's ?Medication ?Instructions ?Recorded cyclobenzaprine 10 mg tablet 10 mg PO TID PRN muscle spasm #30 08/11/19 tabs nitroglycerin 0.4 mg sublingual 0.4 mg sublingual Q5M PRN CAD #20 04/19/20 tablet tabs atorvastatin 40 mg tablet 40 mg PO DAILY #90 tabs 03/22/22 citalopram 20 mg tablet 20 mg PO DAILY #90 tabs 03/22/22 pantoprazole 20 mg tablet,delayed See Rx Instructions .Route 12/07/22 release .COMPLEX #90 tabs aspirin 81 mg capsule 81 mg PO DAILY #30 caps 04/02/25 Allergies Allergy/AdvReac Type Severity Reaction Status Date / Time No Known Allergies Allergy Verified 09/20/22 07:45 Review of Systems Const: Denies: fever(s) or chills Card: Denies: chest pain Resp: Reports: dyspnea GI: Denies: abdominal pain : Denies: dysuria, urinary frequency or urinary urgency Musc: Denies: neck pain or back pain Skin/Breast: Denies: rash PFSH ED PFSH: Medical History Heart failure Afib COPD (chronic obstructive pulmonary disease) GERD (gastroesophageal reflux disease) [place] (hard of hearing) CAD (coronary artery disease) Hx of myocardial infarction Hyperlipidemia Depression Hypertension Surgical History Hx of CABG Hx of appendectomy Hx of heart artery stent Family History Father No problems noted. Mother Cancer stomach Social History Smoking and tobacco/nicotine status: current every day tobacco/nicotine user cigarettes [ Other cigarette details: 2 to 3 packs a week] Alcohol intake: current Alcohol intake frequency: few times a month Physical Exam Const: GENERAL APPEARANCE: cooperative ORIENTATION/CONSCIOUSNESS: Yes awake, Yes oriented to person, Yes oriented to place and Yes oriented to time HENMT: COMMON NORMALS: normocephalic, atraumatic and hearing grossly normal bilaterally HEAD & SCALP: normocephalic and atraumatic Resp: COMMON NORMALS: normal respiratory effort, No retractions and No use of accessory muscles AUSCULTATION: wheezes (Scant wheezes bilaterally) Cardio: COMMON NORMALS: regular rhythm and No murmurs present (Cardio) RATE: tachycardic RHYTHM: regular rhythm GI: COMMON NORMALS: Soft to palpation and No hepatosplenomegaly present AUSCULTATION: Yes normoactive bowel sounds PALPATION: Yes Soft to palpation, No Tenderness to palpation present (GI), No Guarding due to palpation present (GI) and Yes No hepatosplenomegaly present Extremity: COMMON NORMALS: normal to inspection, capillary refill normal, no clubbing, cyanosis or edema, no calf tenderness and no pedal edema Neuro: SENSORIUM/ORIENTATION: Yes oriented to person, Yes oriented to place and Yes oriented to time Skin: COMMON NORMALS: no rashes or lesions noted GENERAL SKIN EXAM: no rashes or lesions noted Course Vital Signs: Vital signs: Vital Signs Temperature 97.6 F 04/03/25 06:49 Pulse Rate 118 H 04/03/25 08:51 Respiratory Rate 31 H 04/03/25 08:00 Blood Pressure 96/68 04/03/25 08:51 Pulse Oximetry 98 04/03/25 08:51 Oxygen Delivery Me thod Nasal Cannula 04/03/25 07:45 Oxygen Flow Rate 2 04/03/25 07:45 MDM - General Adult Medical Decision Making Chest x-ray shows worsening congestive heart failure BNP elevated. No leukocytosis no elevation of procalcitonin. Patient given 60 Lasix. He is requiring oxygen continuously now discussed with hospitalist will admit. Medical Records I reviewed the patient's medical records. CONCLUSIONS Moderately increased left ventricular cavity size. Moderately decreased left ventricular systolic function. Left ventricular ejection fraction is estimated at 40 %. There appeared to be mid to distal anterior, septal and apical akinesis with possible LV aneurysm consistent with ischemic heart disease.Grade III/IV diastolic dysfunction (restrictive filling pattern), severely elevated filling pressures. Moderately increased biatrial size. Mildly thickened mitral valve. No mitral valve stenosis. Moderate mitral valve regurgitation. Severe aortic valve calcification. Valve not well visualized therefore cannot comment on hemodynamics There is no pericardial effusion. Eric Brady MD (Electronically Signed) Final Date: 01 April 2025 Lab Data 04/03/25 07:03 04/03/25 07:03 Radiology Impressions Chest X-Ray 04/03/25 06:51 IMPRESSION: 1. Lung hyperinflation. 2. Bilateral primarily interstitial infiltrates worse on today's exam. Laboratory Results WBC 7.97 10^3/uL (3.29-11.43) 04/03/25 07:03 RBC 4.26 10^6/uL (3.85-5.65) 04/03/25 07:03 Hgb 12.10 g/dL (11.27-16.99) 04/03/25 07:03 Hct 38.7 % (37-53) 04/03/25 07:03 MCV 90.8 fl (82-101) 04/03/25 07:03 MCH 28.4 pg (27-33) 04/03/25 07:03 MCHC 31.3 g/dL (30-55) 04/03/25 07:03 RDW 17.3 % (12.1-15.1) H 04/03/25 07:03 Plt Count 166 10^3/cmm (157-399) 04/03/25 07:03 MPV 10.9 fL (7.4-10.4) H 04/03/25 07:03 Neut % (Auto) 80.6 % 04/03/25 07:03 Lymph % (Auto) 9.7 % 04/03/25 07:03 [place] % (Auto) 7.5 % 04/03/25 07:03 Eos % (Auto) 1.5 % 04/03/25 07:03 Baso % (Auto) 0.4 % 04/03/25 07:03 Neut # (Auto) 6.43 10^3/uL (1.8-7.7) 04/03/25 07:03 Lymph # (Auto) 0.8 10^3/uL (0.8-4.8) 04/03/25 07:03 [place] # (Auto) 0.6 10^3/uL (0.2-0.9) 04/03/25 07:03 Eos # (Auto) 0.1 10^3/uL (0.0-0.8) 04/03/25 07:03 Baso # (Auto) 0.0 10^3/uL (0.0-0.1) 04/03/25 07:03 Nucleated RBC % (auto) 0 % 04/03/25 07:03 Nucleated RBCs # 0.0 /100WBC 04/03/25 07:03 Specimen Type Arterial 04/03/25 07:14 Sample Site Brachial, right 04/03/25 07:14 ABG pH 7.39 (7.35-7.45) 04/03/25 07:14 ABG pCO2 40.4 mmHg (35-45) 04/03/25 07:14 ABG pO2 75.0 mmHg (80.0-100.0) L 04/03/25 07:14 ABG PO2/FiO2 Ratio 357 04/03/25 07:14 ABG HCO3 24.4 mmol/L (22-26) 04/03/25 07:14 ABG O2 Saturation 95.4 04/03/25 07:14 ABG Base Excess -0.6 mmol/L (-2.0-2.0) 04/03/25 07:14 [place] Test N/a 04/03/25 07:14 A-a O2 Gradient 3.2 mmHg (5-10) L 04/03/25 07:14 Hematocrit 36.9 % (42-52) L 04/03/25 07:14 Hgb O2 Saturation 93.4 % (95-100) L 04/03/25 07:14 Carboxyhemoglobin 1.9 %THgb (0.4-20.1) 04/03/25 07:14 Methemoglobin 0.2 % (0.4-1.5) L 04/03/25 07:14 Total Hemoglobin 12.1 g/dL (14-18) L 04/03/25 07:14 Sodium 141.0 mmol/L (131-143) 04/03/25 07:14 Potassium 3.9 mmol/L (3.5-5.0) 04/03/25 07:14 Glucose 121.0 mg/dL (70-115) H 04/03/25 07:14 Ionized Calcium 1.3 mmol/L (1.1-1.4) 04/03/25 07:14 O2 Delivery Device Room air 04/03/25 07:14 FiO2 21.0 % 04/03/25 07:14 Chemistry Technical Officer ID Brom[place] 04/03/25 07:14 Sodium 140 mmol/L (136-145) 04/03/25 07:03 Potassium 4.5 mmol/L (3.5-5.1) 04/03/25 07:03 Chloride 104 mmol/L (98-107) 04/03/25 07:03 Carbon Dioxide 25 mmol/L (22-29) 04/03/25 07:03 Anion Gap 15.5 (5-19) 04/03/25 07:03 BUN 12 mg/dL (8-23) 04/03/25 07:03 Creatinine 0.7 mg/dL (0.7-1.2) 04/03/25 07:03 GFR Calculation Not Reportable 04/03/25 07:03 Glucose 159 mg/dL (65-115) H 04/03/25 07:03 Calculated Osmolality 293 mOsm/kg (285-295) 04/03/25 07:03 Calcium 9.2 mg/dL (8.5-10.5) 04/03/25 07:03 Total Bilirubin 0.7 mg/dL (0.15-1.2) 04/03/25 07:03 AST 25 U/L (0-40) 04/03/25 07:03 ALT 17 U/L (0-41) 04/03/25 07:03 Alkaline Phosphatase 135 U/L (40-130) H 04/03/25 07:03 NT-Pro-B Natriuret Pep 6754 pg/mL (0-125) H 04/03/25 07:03 Total Protein 6.4 g/dL (6.6-8.7) L 04/03/25 07:03 Albumin 4.0 g/dL (3.5-5.2) 04/03/25 07:03 Globulin 2.4 g/dL (1.3-4.6) 04/03/25 07:03 Procalcitonin 0.04 ng/mL (0-0.5) 04/03/25 07:03 All radiology interpretation(s) finalized by discharge EKG Data EKG 1: I personally reviewed and interpreted this EKG as follows: EKG interpretation date: 04/03/25 Prior EKG tracings: available for review Interpretation: EKG 04/03/2025 6:54 AM sinus tachycardia rate of 85. [place] 159 QTc 495 Q waves lead I aVL as well as V1 [address] acute [address] elevation unchanged from previous EKG 04/01/2025 Computer generated interpretation: Chest X-Ray 04/03/25 06:51 IMPRESSION: 1. Lung hyperinflation. 2. Bilateral primarily interstitial infiltrates worse on today's exam. Discharge Plan Discharge Patient Disposition: Admitted As Inpatient Admit Provider: Amaris Peters Clinical Impression: Systolic CHF, acute, COPD (chronic obstructive pulmonary disease) Condition: Stable Coding Level of Care Code ED Supervisor Force Adjustment for Suhailg Lionel
[2025-04-03 07:15] LABS: Hematocrit 38.7 % (37-53); Hemoglobin 12.10 g/dL (11.27-16.99); Mean Corpuscular HGB Conc 31.3 g/dL (30-55); Mean Corpuscular Hemoglobin 28.4 pg (27-33); Mean Corpuscular Volume 90.8 fl (82-101); Nucleated Red Blood Cells % 0 %; Platelet Count 166 10^3/cmm (157-399); Red Blood Count 4.26 10^6/uL (3.85-5.65); White Blood Count 7.97 10^3/uL (3.29-11.43)
[2025-04-03 07:26] LABS: ABG PCO2 40.4 mmHg (35-45); Blood Gas Sample Site Brachial, right; Blood Gas Sample Type Arterial; Carboxyhemoglobin 1.9 %THgb (0.4-20.1); Methemoglobin 0.2 % (0.4-1.5)
[2025-04-03 07:29] LABS: Alanine Aminotransferase 17 U/L (0-41); Albumin Level 4.0 g/dL (3.5-5.2); Alkaline Phosphatase 135 U/L (40-130); Anion Gap 15.5 (5-19); Aspartate Amino Transferase 25 U/L (0-40); Blood Urea Nitrogen 12 mg/dL (8-23); Calcium 9.2 mg/dL (8.5-10.5); Carbon Dioxide 25 mmol/L (22-29); Chloride 104 mmol/L (98-107); Creatinine Clr Calc Pharmacy 82.9808; Globulin 2.4 g/dL (1.3-4.6); Glucose 159 mg/dL (65-115); Osmolality Calculated 293 mOsm/kg (285-295); Potassium 4.5 mmol/L (3.5-5.1); Sodium 140 mmol/L (136-145); Total Protein 6.4 g/dL (6.6-8.7)
[2025-04-03 07:38] LABS: ABG PH Result 7.39 (7.35-7.45); Alveolar-Arterial Oxygen Gradi 3.2 mmHg (5-10); Arterial Blood Gas Hematocrit 36.9 % (42-52); Blood Gas Operator Identificat BROMA; Glucose Level-ABG 121.0 mg/dL (70-115); HCO3 ABG 24.4 mmol/L (22-26); Ionized Calcium Level - ABG 1.3 mmol/L (1.1-1.4); Oxygen Saturation ABG 95.4; PO2 ABG 75.0 mmHg (80.0-100.0); PO2 FiO2 Ratio Arterial Blood 357; Potassium Level - ABG 3.9 mmol/L (3.5-5.0); Sodium Level - ABG 141.0 mmol/L (131-143)
[2025-04-03] MEDS: FUROsemide 10 mg/mL SDV 4mL 60 MG IVP (07:38)
[2025-04-03 08:08] LABS: NT Pro B Type Natriuretic Pept 6754 pg/mL (0-125); Procalcitonin 0.04 ng/mL (0-0.5)
--- NOTE | 2025-04-03 11:04 | PM.HP ---
Providers/Chief Complaint Admitting Physician: Amaris Peters MD Primary Care Provider: YAMILA Almeida Chief Complaint: sob History of Present Illness Philippe Dahl is a 74 year old male with chronic HFrEF (40%) with diastolic dysfunction, CAD status post CABG, ischemic cardiomyopathy with AICD/PPM in place, atrial fibrillation, COPD, hyperlipidemia, depression, and GERD presenting with shortness of breath. He was discharged yesterday. He was admitted for syncope related to hypotension. His CHF meds were held on discharge. He does not use oxygen at baseline. He returned to the ED today with shortness of breath. He was hypoxic on room air and was placed on 2 L/min O2. His BNP was elevated. Chest x-ray showed bilateral pulmonary interstitial infiltrates. He had a CT chest on 03/31/2025 which showed small bilateral pleural effusions with no definitive pneumonia. His procalcitonin was normal. Review of Systems General: Reports: 10 or more systems reviewed and unremarkable except in HPI and below Medications/Allergies Home Medications ?Medication ?Instructions ?Recorded ?Confirmed ?Last Taken ?Type cyclobenzaprine 10 mg tablet 10 mg PO TID PRN muscle spasm #30 08/11/19 04/03/25 Unknown Rx tabs nitroglycerin 0.4 mg sublingual 0.4 mg sublingual Q5M PRN CAD #20 04/19/20 04/03/25 Unknown Rx tablet tabs atorvastatin 40 mg tablet 40 mg PO DAILY #90 tabs 03/22/22 04/03/25 04/02/25 Rx citalopram 20 mg tablet 20 mg PO DAILY #90 tabs 03/22/22 04/03/25 04/02/25 Rx pantoprazole 20 mg tablet,delayed See Rx Instructions .Route 12/07/22 04/03/25 04/02/25 Rx release .COMPLEX #90 tabs apixaban 5 mg tablet (Eliquis) 5 mg PO BID 04/01/25 04/03/25 04/02/25 19:00 History empagliflozin 10 mg tablet 10 mg PO DAILY 04/01/25 04/03/25 04/02/25 History (Jardiance) ferrous sulfate 325 mg (65 mg 325 mg PO DAILY 04/01/25 04/03/25 03/31/25 History iron) tablet (FeroSul) tamsulosin 0.4 mg capsule 0.4 mg PO DAILY 04/01/25 04/03/25 04/02/25 History aspirin 81 mg capsule 81 mg PO DAILY #30 caps 04/02/25 04/03/25 04/02/25 19:00 Rx Allergies Allergy/AdvReac Type Severity Reaction Status Date / Time No Known Allergies Allergy Verified 09/20/22 07:45 PFSH Acute PFSH: Medical History (Updated 04/03/25 @ 13:04 by Amaris Peters MD) Heart failure Afib COPD (chronic obstructive pulmonary disease) GERD (gastroesophageal reflux disease) [place] (hard of hearing) CAD (coronary artery disease) Hx of myocardial infarction Hyperlipidemia Depression Hypertension Surgical History Hx of CABG Hx of appendectomy Hx of heart artery stent Family History Father No problems noted. Mother Cancer stomach Social History Smoking and tobacco/nicotine status: current every day tobacco/nicotine user cigarettes [ Other cigarette details: 2 to 3 packs a week] Alcohol intake: current Alcohol intake frequency: few times a month Vitals/I&O/Wt Last Vital Signs Temp 97.6 F 04/03/25 06:49 Pulse 118 H 04/03/25 08:51 Resp 31 H 04/03/25 08:00 BP 96/68 04/03/25 08:51 Pulse Ox 98 04/03/25 08:51 O2 Del Method Nasal Cannula 04/03/25 09:20 O2 Flow Rate 2 04/03/25 07:45 04/02/25 04/03/25 04/03/25 22:59 06:59 14:59 Output Total 450 / 450 Balance -450 / -450 Weight last 48 hrs Weight 65.363 kg Weight 66.224 kg Physical Exam Narrative: GEN: Alert HEENT: Normocephalic, atraumatic, PERRLA Neck: Supple Respiratory: Increased work of breathing, bibasilar crackles Cardio: Tachycardic but regular rhythm, S1, S2, no murmur noted Abdomen: Soft, nontender, nondistended, normoactive bowel sounds Extremity: Warm, no edema Neuro: Oriented x 3, no focal neurodeficits Skin: No rash or lesion Data 04/03/25 07:03 04/03/25 07:03 A&P Assessment and plan 1. Acute on chronic heart failure with reduced ejection fraction (HFrEF, <= 40%) and combined systolic and diastolic dysfunction: He has ischemic cardiomyopathy status post CABG LVEF 40% on 04/01/2025 CHF meds were held on discharge yesterday due to hypotension leading to syncope Will restart his metoprolol, furosemide, and Jardiance Will hold off on his Entresto and spironolactone Monitor blood pressure closely and slowly introduce remaining GDMT meds if cannot tolerate Strict I's and O's Daily weights Telemetry monitoring 2. COPD (chronic obstructive pulmonary disease): No home O2, currently on 2 L/min oxygen Will start him on prednisone in case he also has exacerbation of his COPD Ipratropium nebs 3. Afib: Unspecified atrial fibrillation Metoprolol and apixaban 4. CAD (coronary artery disease): Status post CABG in July Continue aspirin 5. Hyperlipidemia: Atorvastatin 6. Depression: Citalopram 7. GERD (gastroesophageal reflux disease): Protonix Plan: Cardiac diet Apixaban for VTE prophylaxis PDMP PDMP Reviewed: Not Reviewed Attestations Medical Necessity Statement*: He needs initial hospitalization for IV diuretics, telemetry monitoring, oxygen monitoring, steroids, neb treatments. Coding Level of Care Code Acute Code for Chg Fwd Diagnoses Acute on chronic heart failure with reduced ejection fraction (HFrEF, <= 40%) and combined systolic and diastolic dysfunction I50.43 COPD (chronic obstructive pulmonary disease) J44.9 Afib I48.91 CAD (coronary artery disease) I25.10 Hyperlipidemia E78.5 Depression F32.A GERD (gastroesophageal reflux disease) K21.9
[2025-04-03] MEDS: metoprolol succinate ER (24 HR) 25 mg Tablet PO (14:25)
--- NOTE | 2025-04-03 14:25 | PC.NURSE ---
called patient and talk to community services officer Aviva called the pt to inform her that hospitalist ordered for her to get a blood draw-BMP within a week. Yaniv is also informed.
[2025-04-03] MEDS: methylPREDNISolone sod succ 125 mg/2 mL INJ IVP (16:36)
[2025-04-03 16:59] LABS: ABG PCO2 41.3 mmHg (35-45); ABG PH Result 7.46 (7.35-7.45); Arterial Blood Gas Hematocrit 36.6 % (42-52); Blood Gas LPM 2.0 %; Blood Gas Operator Identificat glc; Blood Gas Sample Site Brachial, right; Blood Gas Sample Type Arterial; HCO3 ABG 29.1 mmol/L (22-26); PO2 ABG 75.4 mmHg (80.0-100.0); PO2 FiO2 Ratio Arterial Blood 269
[2025-04-03] MEDS: albumin 25 G/100 ML BAG 60 G IV (17:26)
[2025-04-03] MEDS: methylPREDNISolone sod succ 40 mg/mL INJ IVP (23:34)
[2025-04-04] VITALS (15 sets, daily range): BP systolic 78–144; BP diastolic 57–87; PULSE 95–116; RESP 16–28; TEMP 35.9–36.6; O2SAT 91–99; BMI 20.8
[2025-04-04 03:06] LABS: Hematocrit 37.7 % (37-53); Hemoglobin 12.00 g/dL (11.27-16.99); Mean Corpuscular HGB Conc 31.8 g/dL (30-55); Mean Corpuscular Hemoglobin 29.1 pg (27-33); Mean Corpuscular Volume 91.3 fl (82-101); Nucleated Red Blood Cells % 0 %; Platelet Count 142 10^3/cmm (157-399); Red Blood Count 4.13 10^6/uL (3.85-5.65); White Blood Count 3.66 10^3/uL (3.29-11.43)
[2025-04-04 03:21] LABS: Anion Gap 16.6 (5-19); Blood Urea Nitrogen 14 mg/dL (8-23); Calcium 9.4 mg/dL (8.5-10.5); Carbon Dioxide 26 mmol/L (22-29); Chloride 100 mmol/L (98-107); Creatinine Clr Calc Pharmacy 84.2034; Glucose 219 mg/dL (65-115); Osmolality Calculated 293 mOsm/kg (285-295); Potassium 4.6 mmol/L (3.5-5.1); Sodium 138 mmol/L (136-145)
[2025-04-04] MEDS: ferrous sulfate EC 325 mg Tablet PO (04:46)
--- NOTE | 2025-04-04 08:14 | P.PN_ITS ---
Subjective 2 Subjective: He is doing better this morning. His dyspnea has improved. His blood pressure is still on the softer side. He is now down to 1 L/min O2. He does not use oxygen at home Medications: Reviewed: Yes Vitals/I&O/Wt Last Vital Signs Temp 97.9 F 04/04/25 08:00 Pulse 100 04/04/25 08:00 Resp 28 H 04/04/25 08:00 BP 100/70 04/04/25 08:00 Pulse Ox 94 04/04/25 08:00 O2 Del Method Nasal Cannula 04/04/25 03:56 O2 Flow Rate 1 04/04/25 03:56 04/03/25 04/04/25 04/04/25 22:59 06:59 14:59 Intake Total 336 / 336 Output Total 450 / 1280 Balance -114 / -944 Weight last 48 hrs Weight 67.721 kg Weight 65.363 kg Weight 66.224 kg Physical Exam 2 Narrative: GEN: Alert HEENT: Normocephalic, atraumatic, PERRLA Neck: Supple Respiratory: No respiratory distress, bibasilar crackles Cardio: Mild tachycardia, regular rhythm, S1, S2, no murmur noted Abdomen: Soft, nontender, nondistended, normoactive bowel sounds Extremity: Warm, no edema Neuro: Oriented x 3, no focal neurodeficits Skin: No rash or lesion Data 04/04/25 02:25 04/04/25 02:25 A&P Assessment and plan 1. Acute on chronic heart failure with reduced ejection fraction (HFrEF, <= 40%) and combined systolic and diastolic dysfunction: He has ischemic cardiomyopathy status post CABG LVEF 40% on 04/01/2025 Recently admitted for syncope and hypotension and was taken off his CHF meds He was given IV Lasix here however given his soft blood pressure we will hold off for now Will hold metoprolol Unable to tolerate full GMDT due to hypotension I have consulted cardiology and input is appreciated Strict I's and O's Daily weights Telemetry monitoring 2. Chronic obstructive pulmonary disease with acute exacerbation: No home O2, currently on 1 L/min oxygen Procalcitonin normal Started him on Solu-Medrol yesterday, will decrease to 40 mg every 12 today Ipratropium and budesonide nebs Monitor O2 sats and wean oxygen as tolerated 3. Afib: Unspecified atrial fibrillation Continue apixaban 4. CAD (coronary artery disease): Status post CABG in July Continue aspirin 5. Hyperlipidemia: Atorvastatin 6. Depression: Citalopram 7. GERD (gastroesophageal reflux disease): Protonix Plan: Cardiac diet Apixaban for VTE prophylaxis PDMP PDMP Reviewed: Not Reviewed Attestations 2 Medical Necessity Statement*: Requires continued hospitalization for IV steroids, telemetry monitoring, blood pressure monitoring, monitoring I's and O's, and cardiology consult. His stay is expected to cross 2 midnights. Coding Level of Care Code Acute Code for Chg Fwd Diagnoses Acute on chronic heart failure with reduced ejection fraction (HFrEF, <= 40%) and combined systolic and diastolic dysfunction I50.43 Chronic obstructive pulmonary disease with acute exacerbation J44.1 COPD type: COPD with acute exacerbation Afib I48.91 CAD (coronary artery disease) I25.10 Hyperlipidemia E78.5 Depression F32.A GERD (gastroesophageal reflux disease) K21.9
[2025-04-04] MEDS: FUROsemide 10 mg/mL SDV 4mL 40 MG IVP (08:20)
[2025-04-04] MEDS: methylPREDNISolone sod succ 40 mg/mL INJ IVP ×2 (08:20→20:18)
[2025-04-04 09:15] LABS: Thyroid Stimulating Hormone 0.71 uIU/mL (0.27-4.20)
--- OUTSIDE RECORDS SUMMARY | 2025-04-04 09:17 | XMS_ITS | Clinical Summary ---
Author Organization [facility] Administrative Offices Address [address] [place] [address] Care Team Providers Care Docket Specialist Name Role Phone Unavailable Primary Care Provider Unavailabl e Allergies Active Allergy Reactions Criticality Noted Date Comments Adhesive Other (See Comments) Low 03/19/2023 Tegaderm caused bleeding Medications aspirin (ECOTRIN EC) 81 mg Tablet, Delayed Release (E.C.) Take 1 Tablet (81 mg) by mouth daily. 90 Tablet 3 Active atorvastatin (LIPITOR) 40 mg tablet Take 1 Tablet (40 mg) by mouth daily. 100 Tablet 3 4 Active spironolactone (ALDACTONE) 25 mg tablet Take 0.5 Tablets (12.5 mg) by mouth daily. 45 Tablet 2 5 Active empagliflozin (Jardiance) 10 mg tablet Take 1 Tablet (10 mg) by mouth daily in the morning. 100 Tablet 3 5 Active tamsulosin (FLOMAX) 0.4 mg capsuleIndicati ons:Elevated prostate specific antigen (PSA) Take 1 capsule by mouth once daily 90 Capsule 1 5 Active ferrous sulfate 325 mg (65 mg iron) tabletIndicatio ns:Anemia, chronic disease Take 1 tablet by mouth once daily 90 Tablet 1 5 Active gabapentin (NEURONTIN) 300 mg capsuleIndicati ons:Neuropathy TAKE 1 CAPSULE BY MOUTH THREE TIMES DAILY 90 Capsule 3 5 Active Additional Information Patient not taking.Reported on [...] is less than 60. 135 Tablet 3 5 Active pantoprazole (PROTONIX) 20 mg Tablet, Delayed Release (E.C.)Indicatio ns:S/P CABG x 3 Take 1 tablet by mouth once daily 90 Tablet 5 Active apixaban (ELIQUIS) 5 mg tablet Take 1 Tablet (5 mg) by mouth 2 times daily. 180 Tablet 3 5 Active HYDROcodone-brian taminophen (NORCO) 5-325 mg tabletIndicatio ns:ICD (implantable cardioverter-de fibrillator) in place Take 1 Tablet by mouth every 4 hours as needed for Pain, Moderate. Max Daily Amount: 6 Tablets 20 Tablet 5 Active Additional Information Patient not taking.Reported on 03/05/2025 citalopram (CeleXA) 20 mg tablet TAKE 1 TABLET BY MOUTH ONCE DAILY AT BEDTIME 90 Tablet 5 Active sacubitriL-vals amber (ENTRESTO) 24-26 mg Tablet Take 1 Tablet by mouth 2 times daily. Hold if BP less than 90- systolic 200 Tablet 3 5 Active furosemide (LASIX) 20 mg tablet Take 1 Tablet (20 mg) by mouth every other day. 45 Tablet 3 5 Active amoxicillin-cla vulanate (AUGMENTIN) 875-125 mg tablet Take 1 Tablet by mouth every 12 hours for 7 days. 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, bi legs 02/04/2023 Tobacco use 11/14/2022 Resolved Problems Problem Noted Date Diagnosed Date Resolved Date Acute respiratory insufficie ncy, postoperative 08/04/2024 08/11/2024 Acute coronary syndrome 07/24/202401/22 Abnormal stress test 07/24/2024 025 Encounters Date Type Department Care Team Description 03/30/2025 External Device Data ST[facility] ABSTRACTION Provider, Abstract 03/10/2025 1:30 PM CDT Nurse Only [place] [address] [place] [phone] Juarez Clements MD Sick sinus syndrome (CMS/HCC) (Primary Dx); Atrial fibrillation, unspecified type (CMS/HCC); Ischemic dilated cardiomyopathy (CMS/HCC); Automatic implantable cardioverter-defibril lator in situ 03/08/2025 Telephone [facility] [place] [address] [phone] Willie Byrne MD Needs Appointment 03/05/2025 10:15 AM CDT Office Visit [place] [address] [place] [phone] Hung Lorenzo MD CAD in [place] artery (Primary Dx); S/P CABG (coronary artery bypass graft) 03/02/2025 External Device Data STL ABSTRACTION Provider, Abstract 03/02/2025 External Device Data STL ABSTRACTION Provider, Abstract 03/02/2025 External Device Data STL ABSTRACTION Provider, Abstract 03/01/2025 Refill [facility] [address] [phone] Raiza Nesbitt, YAMILA 03/01/2025 Telephone [facility] [address] [phone] Willie Byrne MD Ed Follow-up 02/27/2025 5:02 PM CDT - 02/27/2025 7:45 PM CDT Emergency [facility] Emergency Department [address] [place] [address] Naveen Morin MD Shortness of breath (Primary Dx); COPD with exacerbation (CMS/HCC) Discharge Disposition: Home or Self Care 02/27/2025 Travel 02/24/2025 External Device Data STL ABSTRACTION Provider, Abstract 02/11/2025 1:45 PM CDT Anesthesia Event [facility] Cardiac Network/Telecom Engineer [address] [place] [address] Yaniv Bojorquez II, 02/11/2025 12:00 PM CDT - 02/11/2025 1:09 PM CDT Surgery [facility] Network/Telecom Engineer [address] [place] [address] Juarez Clements MD ICD Insertion 02/11/2025 10:09 AM CDT - 02/11/2025 5:25 PM CDT Hospital Encounter [facility] Prep Recovery [address] [place] [address] Juarez Clements MD NYHA class 3 acute on chronic systolic heart failure Discharge Disposition: Home or Self Care 02/09/2025 External Device Data STL ABSTRACTION Provider, Abstract 02/03/2025 11:00 AM CDT Office Visit [facility] [address] [place] [phone] Juarez Clements MD Ischemic dilated cardiomyopathy ([facility]/HCC) (Primary Dx); Essential hypertension; Mixed hyperlipidemia; PAF (paroxysmal atrial fibrillation) ([facility]); S/P CABG x 3; Sinus bradycardia; Status post coronary artery bypass graft; Status post ligation of left atrial appendage; ASHD (arteriosclerotic heart disease); Chronic anticoagulation; Chronic combined systolic and diastolic CHF, NYHA class 2 ([facility]) 02/03/2025 Telephone [place] [address] [place] [phone] Hung Lorenzo MD Follow Up 02/03/2025 Prep for Surgery [place] [address] [place] [phone] Juarez Clements MD Ischemic dilated cardiomyopathy ([facility]/HCC) (Primary Dx); NYHA class 3 acute on chronic systolic heart failure ([facility]) 02/03/2025 Telephone [place] [address] [place] [phone] Juarez Clements MD Procedure 02/02/2025 Telephone [place] [address] [place] [phone] Catherine Paul NP Needs Form Or Letter Filled Out; Information (Will have Catherine DE LA PAZ sign/Zoll forms. ) 01/27/2025 Orders Only [place] [address] [place] [phone] Juarez Clements MD Sinus bradycardia (Primary Dx); CAD in [place] artery; S/P CABG (coronary artery bypass graft); Referral of patient 01/26/2025 External Device Data STL ABSTRACTION Provider, Abstract 01/20/2025 Telephone [place] [address] [place] [phone] Catherine Paul NP Follow Up (To order cardiac MRI ); Results 01/19/2025 Results Follow-Up [facility] [address] [place] [phone] Catherine Paul NP ECHOCARDIOGRAM W/ CONTRAST AGENT 01/08/2025 2:18 PM CDT - 01/08/2025 11:59 PM CDT Hospital Encounter [facility] Echo [address] 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 [phone] Catherine Paul NP [address] [facility] [address], [address] [place] [phone] 05/28/2025 9:20 AM HOSPITAL AIDES AND ASSISTANTS TEACHER Office Visit [facility] [address] [place] [phone] Catherine Paul NP [address], [address] [place] [phone] 08/11/2025 2:00 PM HOSPITAL AIDES AND ASSISTANTS TEACHER Office Visit [facility] [address] [place] [phone] Juarez Clements MD [address] [place] [phone] Geovanna Scherer NP [address], [address] [place] [phone] Health Maintenance Due Date Last Done Comments [...] 2025 04/06/2024 Medical Devices Implanted Type Area Assistant Store Manager Operations Device Identifier Shelf Expiration Date Model / Serial / Lot Atriclip Flex-V Claudia Exclusion 45mm Achv45 - [id number] Implanted:Qty : 1 on 08/04/2024 by Jesus Manuel Newton MD at [facility] Cardiovascular Device N/A: Chest [employer] [id number] 05/24/2027 [id number] / / [id number] Clip Ligating Horizon Red 130128 - Csc - [id number] Implanted:Qty : 1 on 08/04/2024 by Jesus Manuel Newton MD at [facility] Clip N/A: Chest TELEFLEX INC [id number] 04/23/2029 634261 / / [id number] Clip Ligating Horizon Red 156562 - Csc - [id number] Implanted:Qty : 1 on 08/04/2024 by Jesus Manuel Newton MD at [facility] Clip N/A: Chest TELEFLEX INC [id number] 04/23/2029 402887 / / [id number] Clip Ligating Horizon Red 236147 - Csc - [id number] Implanted:Qty : 1 on 08/04/2024 by Jesus Manuel Newton MD at [facility] Clip N/A: Chest TELEFLEX INC [id number] 04/23/2029 411871 / / [id number] Clip Ligating Horizon Lrg Ti 10.07x12.38mm 519902 - Csc - [id number] Implanted:Qty : 1 on 08/06/2024 by Jesus Manuel Newton MD at [facility] Clip N/A: Neck TELEFLEX- WECK CLOSURE SYS 08/25/2028261950 / / [id number] Clip Ligating Horizon Lrg Ti 10.07x12.38mm 264662 - [facility] - [id number] Implanted:Qty : 1 on 08/06/2024 by Jesus Manuel Newton MD at [facility] Clip N/A: Neck TELEFLEX- WECK CLOSURE SYS 08/25/2028 / / [id number] Dev Closure Angioseal 6fr Vip 632168 - [id number] Implanted:Qty : 1 on 02/04/2023 at [facility] Closure Device Left: Groin [facility] [employer] 11/22/2023 029241 / / [id number] Defib Icd Wendell Xt Mri [id number] Df4 Dual Chmbr Surescan Wlcg2d0 - [id number] Implanted:Qty : 1 on 02/11/2025 by Juarez Clements MD at [facility] Defibrillator Left: Chest Wall [employer]- CARD RHYTHM MGMT [id number] 05/21/2026 [id number] / [id number] / Graft Vasc Hemashield Gold Knit 324668 - [id number] Implanted:Qty : 1 on 08/04/2024 by Jesus Manuel Newton MD at [facility] Graft N/A: Chest [employer] INC [id number] 05/23/2028 [id number] / [id number] / [id number] Orthostat 2.0gm Os-201 - [id number] Implanted:Qty : 1 on 08/04/2024 by Jesus Manuel Newton MD at [facility] Hemostatic N/A: Chest ORTHOCON, INC [id number] 03/23/2027 OS-201 / Orthostat 2.0gm Os-201 - [id number] Implanted:Qty : 1 on 08/04/2024 by Jesus Manuel Newton MD at [facility] Hemostatic N/A: Chest ORTHOCON, INC [id number] 03/23/2027 OS- Lead Pacing Capsure Fix Novus 52cm [id number] - [facility] - [id number] Implanted:Qty : 1 on 02/11/2025 by Juarez Clements MD at [facility] Lead Left: Chest Wall [employer]- CRM - BULK BUY [id number] 11/06/2026 487039 / [id number] / Lead Sprint Quattro Secure 62cm [id number] - [facility] - [id number] Implanted:Qty : 1 on 02/11/2025 by Juarez Clements MD at [facility] Lead Left: Chest Wall [employer]- CRM - BULK BUY [id number] 12/03/2026 8290V20 / [id number] 15V / Adh Bioglue 10ml Hm5821-4-Vr - [id number] Implanted:Qty : 1 on 08/04/2024 by Jesus Manuel Newton MD at [facility] Sealant N/A: Chest ARTIVION (FKA CRYOLIFE) [id number] 09/20/2025 [id number]- 5-US / / [id number] Stent Lifestent 5fr [id number] 135cm [id number] - [id number] Implanted:Qty : 1 on 02/04/2023 at [facility] Stent Right: Leg BARD CAROLYNN VASC 02/02/2025 [id number] / / [id number] Plt Bone H Concave 6h Nst Lf Implanted:Qty : 1 on 08/04/2024 by Jesus Manuel Newton MD at [facility] N/A: Chest MIREYA BIOMET 115.602 .06 / / Plt Bone H Concave 6h Nst Lf Implanted:Qty : 1 on 08/04/2024 by Jesus Manuel Newton MD at [facility] N/A: Chest MIREYA BIOMET 115.602 .06 / / Sternalock Ez 16 Mm Screw Implanted:Qty : 1 on 08/04/2024 by Jesus Manuel Newton MD at [facility] N/A: Chest ZIMMERB IOMET-1 00.035. 16 / / Sternalock Ez 16 Mm Screw Implanted:Qty : 1 on 08/04/2024 by Jesus Manuel Newton MD at [facility] N/A: Chest ZIMMERB IOMET-1 00.035. 16 / / Sternalock Ez 16 Mm Screw Implanted:Qty : 1 on 08/04/2024 by Jesus Manuel Newton MD at [facility] N/A: Chest ZIMMERB IOMET-1 00.035. 16 / / Sternalock Ez 16 Mm Screw Implanted:Qty : 1 on 08/04/2024 by Jesus Manuel Newton MD at [facility] N/A: Chest ZIMMERB IOMET-1 00.035. 16 / / Sternalock Ez 16 Mm Screw Implanted:Qty : 1 on 08/04/2024 by Jesus Manuel Newton MD at [facility] N/A: Chest ZIMMERB IOMET-1 00.035. 16 / / Sternalock Ez 16 Mm Screw Implanted:Qty : 1 on 08/04/2024 by Jesus Manuel Newton MD at [facility] N/A: Chest ZIMMERB IOMET-1 00.035. 16 / / Sternalock Ez 16 Mm Screw Implanted:Qty : 1 on 08/04/2024 by Jesus Manuel Newton MD at [facility] N/A: Chest ZIMMERB IOMET-1 00.035. 16 / / Sternalock Ez 16 Mm Screw Implanted:Qty : 1 on 08/04/2024 by Jesus Manuel Newton MD at [facility] N/A: Chest ZIMMERB IOMET-1 00.035. 16 / / Sternalock Ez 16 Mm Screw Implanted:Qty : 1 on 08/04/2024 by Jesus Manuel Newton MD at [facility] N/A: Chest ZIMMERB IOMET-1 00.035. 16 / / Sternalock Ez 16 Mm Screw Implanted:Qty : 1 on 08/04/2024 by Jesus Manuel Newton MD at [facility] N/A: Chest ZIMMERB IOMET-1 00.035. 16 / / Sternalock Ez 16 Mm Screw Implanted:Qty : 1 on 08/04/2024 by Jesus Manuel Newton MD at [facility] N/A: Chest ZIMMERB IOMET-1 00.035. 16 / / Screw Bone 18mm Lck Nst Lf Implanted:Qty : 1 on 08/04/2024 by Jesus Manuel Newton MD at [facility] N/A: Chest MIREYA BIOMET 100.035 .18 / / Screw Bone 18mm Lck Nst Lf Implanted:Qty : 1 on 08/04/2024 by Jesus Manuel Newton MD at [facility] N/A: Chest MIREYA BIOMET 100.035 .18 / / Screw Bone 18mm Lck Nst Lf Implanted:Qty : 1 on 08/04/2024 by Jesus Manuel Newton MD at [facility] N/A: Chest MIREYA BIOMET 100.035 .18 / / Screw Bone 18mm Lck Nst Lf Implanted:Qty : 1 on 08/04/2024 by Jesus Manuel Newton MD at [facility] N/A: Chest MIREYA BIOMET 100.035 .18 / / Screw Bone 18mm Lck Nst Lf Implanted:Qty : 1 on 08/04/2024 by Jesus Manuel Newton MD at [facility] N/A: Chest MIREYA BIOMET 100.035 .18 / / Screw Bone 18mm Lck Nst Lf Implanted:Qty : 1 on 08/04/2024 by Jesus Manuel Newton MD at [facility] N/A: Chest MIREYA BIOMET 100.035 .18 / / Screw Bone 16mm Lck Nst Lf Implanted:Qty : 1 on 08/04/2024 by Jesus Manuel Newton MD at [facility] N/A: Chest MIREYA BIOMET 100.035 .16 / / Procedures Procedure Name Priority Date/Time Associated Diagnosis Comments NJ PROGRAM EVAL IMPLANT DEVICE,CARDVERT/DEFI B,2 LEAD WITHIN [...] WITH DIFFERENTIAL Routine 02/11/2025 10:57 AM CDT NJ ECG ROUTINE ECG W/LEAST 12 LDS W/I&R Routine 02/03/2025 11:02 AM CDT Sinus bradycardia CAD in [place] artery S/P CABG (coronary artery bypass graft) Referral of patient ECHOCARDIOGRAM W/ CONTRAST AGENT Routine 01/08/2025 3:27 PM CDT CAD in [place] artery S/P CABG (coronary artery bypass graft) Benign hypertension Hyperlipidemia, unspecified hyperlipidemia type OCCULT BLOOD IMMUNOASSAY, COLORECTAL SCREEN Routine 11/13/2022 12:00 AM CDT Encounter for colorectal cancer screening from Last 3 Months or Most Recently Relevant to Health Maintenance Results * NJ PROGRAM EVAL IMPLANT DEVICE,CARDVERT/DEFIB,2 LEAD WITHIN GLOBAL (03/10/2025 2:03 PM CDT) Narrative [facility] - 03/10/2025 2:03 PM CDT Elva [...] care, arm restrictions and recommended follow up. [facility] f/u reviewed. Enrolled in [place]. Patient verbalized understanding of all instructions. F/U [...] up. [facility] f/u reviewed. [facility].Patient verbalized understanding of all instructions. F/U with EP officein 3 months. See attached report for details. Juarez Clements MD CARDIAC SERVICES ORDERA BLES Final Result [facility] [address] [facility] [place] [address] * (ABNORMAL) TROPONIN 2 HR, 5TH GEN (02/27/2025 5:22 PM CDT) TROPONIN T, 2 HR 5TH GEN 74(H) <=15 ng/L 02/27/2025 6:23 PM CDT [facility] DELTA 2HR TROPONIN T -5 See Interp. 02/27/2025 6:23 PM CDT [facility] Blood Venipuncture / Unknown 02/27/2025 5:22 PM CDT 02/27/2025 5:53 PM CDT Narrative [facility] - 02/27/2025 6:23 PM CDT Troponin elevated. Delta indeterminate. Delay in collection of timed specimen beyond recommended collection interval. Results must be interpreted in clinical context. Shilpa Vaz APRN CHEMISTRY ORDERABLES Lady l Result [facility] CLIA # [id number] [address] [facility] [place] [address] * (ABNORMAL) BRAIN NATRIURETIC PEPTIDE, BNP OR PROBNP (02/27/2025 5:22 PM CDT) PROBNP, N TERMINAL 6,837(H) 0 - 125 pg/mL 02/27/2025 6:33 PM CDT [facility] [employer] [facility] Comment: INTERPRETIVE COMMENT based on [...] Morin MD CHEMISTRY ORDERABLES Final Re sult [facility] CLIA # [id number] [facility] [place] [address] [place] [address] * XR CHEST PA OR AP 1 [...] BASELINE, 5TH GEN (02/27/2025 2:57 PM CDT) [facility] TROPONIN T, BASELINE 5TH GEN 79(H) <=15 ng/L 02/27/2025 3:33 PM CDT [facility] Blood Venipuncture / Unknown 02/27/2025 2:57 PM CDT 02/27/2025 3:03 PM CDT Narrative [facility] - 02/27/2025 3:33 PM CDT Troponin elevated. Shilpa Vaz APRN CHEMISTRY ORDERABLES Lady l Result [facility] CLIA # [id number] [address] [place] [address] * (ABNORMAL) CBC WITH DIFFERENTIAL (02/27/2025 2:57 PM CDT) Only the most recent of2 resultswithin the time period is included. [facility] WBC 7.1 4.8 - 10.8 K/uL 02/27/2025 3:06 PM CDT [facility] RBC 4.51(L) 4.60 - 6.20 M/uL 02/27/2025 3:06 PM CDT [facility] HEMOGLOBIN 12.6(L) 14.0 - 18.0 g/dL 02/27/2025 3:06 PM CDT [facility] HEMATOCRIT 39.7(L) 41.0 - 53.0 % 02/27/2025 3:06 PM [facility] MCV 88.0 84.0 - 103.0 fL 02/27/2025 3:06 PM [facility] MCH 27.9 27.0 - 34.0 pg 02/27/2025 3:06 PM [facility] MCHC 31.7 30.0 - 35.0 g/dL 02/27/2025 3:06 PM [facility] PLATELETS 181 140 - 440 K/uL 02/27/2025 3:06 PM [facility] MPV 10.6 8.9 - 12.8 fL 02/27/2025 3:06 PM [facility] RDW 15.6(H) 11.0 - 14.5 % 02/27/2025 3:06 PM [facility] RDW-STDEV 49.0 37.0 - 54.0 fL 02/27/2025 3:06 PM [facility] NEUTROPHILS 73 42 - 75 % 02/27/2025 3:06 PM [facility] LYMPHOCYTES 16(L) 24 - 44 % 02/27/2025 3:06 PM [facility] MONOCYTES 8 2 - 10 % 02/27/2025 3:06 PM [facility] EOSINOPHILS 2 0 - 7 % 02/27/2025 3:06 PM [facility] BASOPHILS 1 0 - 1 % 02/27/2025 3:06 PM [facility] IMMATURE GRANULOCYTES 0 0 - 2 % 02/27/2025 3:06 PM [facility] NEUTROPHIL ABSOLUTE 5.18 2.00 - 8.00 K/uL 02/27/2025 3:06 PM [facility] LYMPHOCYTE ABSOLUTE 1.11(L) 1.20 - 4.00 K/uL 02/27/2025 3:06 PM [facility] MONOCYTE ABSOLUTE 0.57 0.10 - 0.60 K/uL 02/27/2025 3:06 PM [facility] EOSINOPHIL ABSOLUTE 0.13 0.00 - 0.70 K/uL 02/27/2025 3:06 PM CDT [facility] BASOPHILS ABSOLUTE 0.04 0.00 - 0.20 K/uL 02/27/2025 3:06 PM CDT [facility] IMMATURE GRANULOCYTES ABSOLUTE 0.03 0.00 - 0.10 K/uL 02/27/2025 3:06 PM CDT [facility] SMEAR REVIEWED: NA - Not Applicable 02/27/2025 3:06 PM CDT [facility] Blood Venipuncture / Unknown 02/27/2025 2:57 PM CDT 02/27/2025 3:03 PM CDT Shilpa Vaz CRANE SERVICE TECHNICIAN HEMATOLOGY ORDERABLES Fin al Result Performing Organization Address City/[facility] Co de Phone Number [facility] CLIA # [id number] [facility] [address] * MAGNESIUM LEVEL (02/27/2025 2:57 PM CDT) Pathologist [facility] MAGNESIUM 2.3 1.6 - 2.4 mg/dL 02/27/2025 3:43 PM CDT [facility] Blood Venipuncture / Unknown 02/27/2025 2:57 PM CDT 02/27/2025 3:03 PM CDT Shilpa Vaz CRANE SERVICE TECHNICIAN CHEMISTRY ORDERABLES Lady l Result [facility] CLIA # [id number] [address] [address] * (ABNORMAL) COMPREHENSIVE METABOLIC PANEL (02/27/2025 2:57 PM CDT) SODIUM 138 136 - 145 mmol/L 02/27/2025 3:43 PM [facility] POTASSIUM 4.6 3.5 - 5.1 mmol/L 02/27/2025 3:43 PM [facility] CHLORIDE 102 98 - 107 mmol/L 02/27/2025 3:43 PM [facility] CO2 25 22 - 29 mmol/L 02/27/2025 3:43 PM [facility] CALCIUM 9.4 8.8 - 10.2 mg/dL 02/27/2025 3:43 PM [facility] BUN 14 8 - 23 mg/dL 02/27/2025 3:43 PM [facility] CREATININE 0.85 0.67 - 1.17 mg/dL 02/27/2025 3:43 PM [facility] Comment:The GFR result is no t clinically significant on patients <18 or >70 years of age. GLUCOSE 93 74 - 99 mg/dL 02/27/2025 3:43 PM [facility] TOTAL PROTEIN 6.7 6.4 - 8.3 g/dL 02/27/2025 3:43 PM [facility] ALBUMIN 3.8 3.5 - 5.2 g/dL 02/27/2025 3:43 PM [facility] BILIRUBIN TOTAL 0.9 0.0 - 1.0 mg/dL 02/27/2025 3:43 PM [facility] ALKALINE PHOSPHATASE 146(H) 40 - 129 U/L 02/27/2025 3:43 PM [facility] AST 27 10 - 50 U/L 02/27/2025 3:43 PM [facility] ALT 19 <=50 U/L 02/27/2025 3:43 PM [facility] GFR >60 mL/min/1.7 3 sq meter 02/27/2025 3:43 PM [facility] Comment:eGFR calculated with 2020 CKD-EPI equation. Vegetarian diet, extremely high or low muscle mass, and may affect results. Cystatin C with Glomerular Filtration Rate is a suitable alternative for these patients. ANION GAP 11 9 - 20 mmol/L 02/27/2025 3:43 PM CDT [facility] Blood Venipuncture / Unknown 02/27/2025 2:57 PM CDT 02/27/2025 3:03 PM CDT us Shilpa Vaz [employer] TECHNICIAN CHEMISTRY ORDERABLES Lady l Result [facility] CLIA # [id number] [place] [address] * EKG 12-LEAD (02/27/2025 2:44 PM CDT) Only the most recent of3 resultswithin the time period is included. 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 : 1950 Requested By: Order Number: [id number] Reading : Joseline Butts Measurements Intervals [place] Rate: 102 P: 74 [place]: 172 QRS: 100 QRSD: 96 T: 240 QT: 372 QTc: 484 Interpretive Statements Sinus tachycardia Septal infarct, age undetermined Lateral infarct, age undetermined ST & T wave abnormality, consider inferior ischemia Abnormal ECG Electronically Signed On 02-28-2025 13:12:48 CDT by Joseline Butts Procedure Note Provider, Historical - 02/28/[address] [address] Test Date: 2025-02-27 Pat Name: SHILPA DAHL Department: 11 Room: 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 Successful Dual Chamber ICD Implant (MRI Compatible) Estimated Blood Loss There was minimal blood loss during procedure. Procedure Details [facility] Clinical Cardiac Electrophysiology Device Report Procedures: 1. Medtronic Dual Chamber ICD Implant 2. Contrast Venography 3. Left Subclavian Vein Access 4. Device Interrogation 5. Conscious Sedation (performed by Anesthesia) 6. Fluoroscopy with Interpretation Operators: 1. Juarez Clements MD, [facility], [facility] - Clinical Cardiac Electrophysiology Indication: 74 y/o [...] = < 30 cc. Device Model: Medtronic Wendell XT DR DERRICK Garber [id number] ATRIAL Lead: EDSON [id number] Pacing Threshold: 0.5V @ 0.4ms Impedance: 551 ohms P wave: 2.0 mV RIGHT VENTRICULAR Lead: EDSON [id number] Pacing Threshold: 0.5V @ 0.4ms Impedance: 570 ohms R wave: 9.5 mV Complications: None Summary: 1. Successful Dual Chamber ICD Implant (MRI Compatible) Juarez Clements MD, FAC, [facility] Clinical Cardiac Electrophysiology Assistant Professor Of Physics of Clinical Medicine [facility] Procedural Indications 74 y/o WM with h/o IDCM, CAD, NYHA Class III HF, PAF, SSS, and EF < 35% despite OMT > 3 months presents for a dual chamber ICD for primary prevention and sick sinus syndrome. Juarez Clements MD [facility] EP ORDERABLES Final Result [facility] [id number] [address] [facility] [address] [place] [id number], [place] [phone] * PROTIME-INR (02/11/2025 10:57 AM CDT) PROTIME 13.9 12.7 - 14.9 Seconds 02/11/2025 11:13 AM CDT [facility] INR 1.0 0.8 - 1.2 02/11/2025 11:13 AM CDT [facility] Blood Venipuncture / Unknown 02/11/2025 10:57 AM CDT 02/11/2025 10:59 AM CDT Narrative [facility] - 02/11/2025 11:13 AM CDT Expected Values [...] Clements MD HEMATOLOGY ORDERABLES F inal Result [facility] # [id number] [facility] [address] * BASIC METABOLIC PANEL (02/11/2025 10:57 AM CDT) SODIUM 140 136 - 145 mmol/L 02/11/2025 11:34 AM CDT [facility] [employer] [facility] POTASSIUM 4.5 3.5 - 5.1 mmol/L 02/11/2025 11:34 AM CDT [facility] CHLORIDE 104 98 - 107 mmol/L 02/11/2025 11:34 AM CDT [facility] CO2 27 22 - 29 mmol/L 02/11/2025 11:34 AM T [facility] [employer] [facility] CALCIUM 9.2 8.8 - 10.2 mg/dL 02/11/2025 11:34 AM CDT [facility] [employer] [facility] BUN 19 8 - 23 mg/dL 02/11/2025 11:34 AM CDT [facility] [employer] [facility] CREATININE 0.89 0.67 - 1.17 mg/dL 02/11/2025 11:34 AM T [facility] [employer] [facility] Comment:The GFR result is no t clinically significant on patients <18 or >70 years of age. GLUCOSE 99 74 - 99 mg/dL 02/11/2025 11:34 AM T [facility] [employer] [facility] GFR >60 mL/min/1.7 3 sq meter 02/11/2025 11:34 AM CDT [facility] Comment:eGFR calculated with 2020 CKD-EPI equation. Vegetarian diet, extremely high or low muscle mass, and may affect results. Cystatin C with Glomerular Filtration Rate is a suitable alternative for these patients. ANION GAP 9 9 - 20 mmol/L 02/11/2025 11:34 AM CDT [facility] Blood Venipuncture / Unknown 02/11/2025 10:57 AM CDT 02/11/2025 10:59 AM CDT Juarez Clements MD CHEMISTRY ORDERABLES Fi nal Result [facility] CLIA # [id number] [address] [place] [address] * ECHOCARDIOGRAM W/ CONTRAST AGENT (01/08/2025 3:27 PM CDT) EJECTION FRACTION 20 INTERFACE SYSTEM 01/08/2025 2:40 PM CDT Narrative INTERFACE SYSTEM - 01/08/2025 4:57 PM CDT [facility]ovascular Services Echocardiography Laboratory [address] [place] [address] Limited Transthoracic Echocardiography Patient: Shilpa Dahl Study ID: ECHO HALEY Obrien Gender: M : 1950 Age: 74 Room: [facility] Study 01/08/2025 Pt Outpatient Date: Status: Study 02:40:17 PM CSN #: [id number] Time: Ordering:Hung Lorenzo Separator Operator: Juan Salazar [facility] Indications and History: Dx: CAD in [place] artery [I25.10 (ICD-10-CM)]; S/P CABG (coronary artery [...] (H) farhan values outside specified reference range. [facility] Echo Labs are accredited with the [facility] Accreditation Commission - Echocardiography. Prepared and Electronically Authenticated Rocky Petersen Confirmed 01/08/2025 16:57 Procedure Note Rocky Petersen MD - 01/08/2025 [facility] Echocardiography Laboratory [address] [place] [address] Limited Transthoracic Echocardiography Patient: Shilpa Dahl Study ID: ECHO LIMITEDW C Micah Gender: Kimberly : 1950 Age: 74 Room: [facility] Study 01/08/2025 Pt Outpatient Date: Status: Study 02:40:17 PM [facility] #: [id number] Time: Ordering:Hung Lorenzo Separator Operator: Juan Salazar [facility] Indications and History: Dx: CAD in [place] artery [I25.10 (ICD-10-CM)];S/P CABG (coronary artery bypass [...] limited echo was performed Study components: M-mode, [id number], limited spectral Doppler, and color Doppler. Height: [...] (H) farhan values outside specified reference range. [facility] Echo Labs are accredited with the[facility] Accreditation Commission - Echocardiography. Prepared and Electronically Authenticated Rokcy Petersen Confirmed 01/08/2025 16:57 Hung Lorenzo MD ORDERABLES Final Result Performing Organization Address City/[facility] Co de Phone Number INTERFACE SYSTEM Refer to clinic/hospital department * OCCULT BLOOD IMMUNOASSAY, COLORECTAL SCREEN (11/13/2022 12:00 AM CDT) FECAL GLOBIN SEE NOTE [facility] [place] Comment: FECAL GLOBIN BY IMMUNOCHEMISTRY Micro Number: [id number] Test Status: Final Specimen Source: Stool Specimen Quality: Adequate Fecal Globin: Not Detected Test Performed at: [facility] [address] [place] [address] Hussein Sherwood MD Stool STOOL SPECIMEN / Unknown 11/13/2022 11/26/2022 12:19 PM CDT Kiya [place] 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
--- OUTSIDE RECORDS SUMMARY | 2025-04-04 09:17 | XMS_ITS | Encounter Summary ---
Author Organization [facility] Address 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 Gender Identity Not on file Sexual Orientation Not on file documented as of this encounter Plan of Treatment Upcoming Encounters Date Type Department Care Team (Late Contact Info) Description 05/07/2025 8:15 AM PRODUCE WEIGHER Appointment [facility] [address] [place] [address] Catherine Paul, JESUS [address] [place] [address] 05/28/2025 9:20 AM PRODUCE WEIGHER Office Visit [facility] [address] [place] [phone] Catherine Paul, JESUS [address], [address] [place] [phone] 08/11/2025 2:00 PM PRODUCE WEIGHER Office Visit [facility] [address] [place] [phone] Juarez Clements MD [address] [place] [phone] Geovanna Scherer NP [address], [address] [place] [phone] documented as of this encounter Visit Diagnoses Not on filedocumented in this encounter
--- OUTSIDE RECORDS SUMMARY | 2025-04-04 09:17 | XMS_ITS | Encounter Summary ---
Author Organization [facility] Address [address] [place] [address] Care Team Providers Care Geriatric Nurse Name Role Phone Unavailable Primary Care Provider Unavailluis e Encounter Details Date Type Department Care Team (Latest Contact Info) Description 04/26/2005 Outpatient Historical [facility] [address] 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
--- OUTSIDE RECORDS SUMMARY | 2025-04-04 09:17 | XMS_ITS | Clinical Summary ---
Author Organization [facility] Address [address] 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
--- NOTE | 2025-04-04 10:36 | PM.CONSULT ---
Providers/Reason For Consult Consulting Physician/Specialty*: Nahum Holilns MD/ Cardiology Reason for Consult*: Congestive heart failure Requesting Physician: Dr Peters Attending Physician: Amaris Peters MD Primary Care Provider: YAMILA Almeida History of Present Illness History of Present Illness Philippe Dahl is a 74 year old male with past medical history of coronary artery disease s/p CABG earlier this year, ICD placement back in January, atrial fibrillation on eliquis was recently discharged from hospital when he was admitted for syncope. His BP was found to be low and CHF medications were held. Patient started noticing worsening shortness of breath and came to hospital again. No significant troponoin elevation. NT pro BNP is elevated. EKG showes sinus tachycardia with no significant EKG changes. Review of Systems Resp: Reports: dyspnea Medications/Allergies Home Medications ?Medication ?Instructions ?Recorded ?Confirmed ?Last Taken ?Type cyclobenzaprine 10 mg tablet 10 mg PO TID PRN muscle spasm #30 08/11/19 04/03/25 Unknown Rx tabs nitroglycerin 0.4 mg sublingual 0.4 mg sublingual Q5M PRN CAD #20 04/19/20 04/03/25 Unknown Rx tablet tabs atorvastatin 40 mg tablet 40 mg PO DAILY #90 tabs 03/22/22 04/03/25 04/02/25 Rx citalopram 20 mg tablet 20 mg PO DAILY #90 tabs 03/22/22 04/03/25 04/02/25 Rx pantoprazole 20 mg tablet,delayed See Rx Instructions .Route 12/07/22 04/03/25 04/02/25 Rx release .COMPLEX #90 tabs apixaban 5 mg tablet (Eliquis) 5 mg PO BID 04/01/25 04/03/25 04/02/25 19:00 History empagliflozin 10 mg tablet 10 mg PO DAILY 04/01/25 04/03/25 04/02/25 History (Jardiance) ferrous sulfate 325 mg (65 mg 325 mg PO DAILY 04/01/25 04/03/25 03/31/25 History iron) tablet (FeroSul) tamsulosin 0.4 mg capsule 0.4 mg PO DAILY 04/01/25 04/03/25 04/02/25 History aspirin 81 mg capsule 81 mg PO DAILY #30 caps 04/02/25 04/03/2504/02/25 19:00 Rx Allergies Allergy/AdvReac Type Severity Reaction Status Date / Time No Known Allergies Allergy Verified 09/20/22 07:45 Current Medications Generic Name Dose Route Start Last Admin Trade Name Roe PRN Reason Stop Dose Admin Acetaminophen 650 mg 04/03/25 11:02 04/03/25 23:33 Acetaminophen 325 Mg Tablet PO 650 mg Q6H PRN Administration Mild/Mod Pain Or Temp >/= 101 Albuterol/Ipratropium 3 ml 04/03/25 14:00 04/04/25 08:44 Ipratropium-Albuterol 3 Ml Neb INHALATION 3 ml Q6H.RESP AYAN Administration Apixaban 5 mg 04/03/25 17:00 04/04/25 04:45 Apixaban 5 Mg Tablet PO 5 mg BID AYAN Administration Aspirin 81 mg 04/04/25 05:00 04/04/25 04:45 Aspirin 81 Mg Ec Tablet PO 81 mg DAILY AYAN Administration Atorvastatin Calcium 40 mg 04/04/25 05:00 04/04/25 04:45 Atorvastatin 40 Mg Tablet PO 40 mg DAILY AYAN Administration Budesonide 0.5 mg 04/03/25 20:00 04/04/25 08:44 Budesonide 0.5 Mg/2 Ml Neb INHALATION 0.5 mg BID.RESPIRATORY AYAN Administration Citalopram Hydrobromide 20 mg 04/04/25 05:00 04/04/25 04:45 Citalopram 20 Mg Tablet PO 20 mg DAILY AYAN Administration Ferrous Sulfate 325 mg 04/04/25 05:00 04/04/25 04:46 Ferrous Sulfate Ec 325 Mg Tablet PO 325 mg DAILY AYAN Administration Furosemide 40 mg 04/04/25 08:00 04/04/25 08:20 Furosemide 10 Mg/Ml Sdv 4ml IVP 40 mg Q24H AYAN Administration Methylprednisolone Sodium Succinate 40 mg 04/04/25 00:01 04/04/25 08:20 Methylprednisolone Sod Succ 40 Mg/Ml Inj IVP 40 mg Q8H AYAN Administration Metoprolol Succinate 25 mg 04/03/25 14:01 04/03/25 14:25 Metoprolol Succinate Er (24 Hr) 25 Mg Tablet PO 25 mg DAILY AYAN Administration Non-Formulary Medication 10 mg 04/04/25 05:00 04/04/25 04:46 Empagliflozin [Jardiance] PO Not Given DAILY AYAN Pantoprazole Sodium 40 mg 04/04/25 05:00 04/04/25 04:[address] 40 Mg Tablet PO 40 mg DAILY AYAN Administration Tamsulosin HCl 0.4 mg 04/04/25 05:00 04/04/25 04:45 Tamsulosin 0.4 Mg Capsule PO 0.4 mg DAILY AYAN Administration PFSH Acute PFSH: Medical History (Updated 04/05/25 @ 13:41 by Blas Danielson MD) Acute on chronic hypoxic respiratory failure Heart failure Afib COPD (chronic obstructive pulmonary disease) GERD (gastroesophageal reflux disease) [place] (hard of hearing) CAD (coronary artery disease) Hx of myocardial infarction Hyperlipidemia Depression Hypertension Surgical History Hx of CABG Hx of appendectomy Hx of heart artery stent Family History Father No problems noted. Mother Cancer stomach Social History Smoking and tobacco/nicotine status: current every day tobacco/nicotine user cigarettes [ Other cigarette details: 2 to 3 packs a week] Alcohol intake: current Alcohol intake frequency: few times a month Vitals/I&O/Wt Last Vital Signs Temp 97.9 F 04/04/25 08:00 Pulse 102 H 04/04/25 08:45 Resp 16 04/04/25 08:45 BP 100/70 04/04/25 08:00 Pulse Ox 95 04/04/25 08:45 O2 Del Method Nasal Cannula 04/04/25 08:45 O2 Flow Rate 1 04/04/25 08:45 04/03/25 04/04/25 04/04/25 22:59 06:59 14:59 Intake Total 336 / 336 240 / 240 Output Total 450 / 1280 Balance -114 / -944 240 / 240 Weight last 48 hrs Weight 149 lb 4.8 oz Weight 144 lb 1.6 oz Weight 146 lb Physical Exam Const: COMMON NORMALS: patient oriented x3 and alert Resp: OTHER: Diminished air entry bilaterally Cardio: COMMON NORMALS: regular rhythm, S1 normal heart sound present and S2 normal heart sound present RHYTHM: regular rhythm HEART SOUNDS: S1 normal heart sound present and S2 normal heart sound present Neuro: COMMON NORMALS: patient oriented x3 SENSORIUM/ORIENTATION: Yes alert Data 04/08/25 03:07 04/08/25 03:07 A&P Assessment and plan 1. CAD (coronary artery disease): 2. Afib: 3. Acute on chronic heart failure with reduced ejection fraction (HFrEF, <= 40%) and combined systolic and diastolic dysfunction: 4. Dyspnea on exertion: 5. Hypotension: 6. Chronic obstructive pulmonary disease with acute exacerbation: Plan: Patient has respiratory difficulty secondary to combination of volume overload as CHF meds had to be held recently because of hypotension and COPD. Gentle diuretics. COPD management per primary team. ICD interrogation ordered to assess for recent syncopal episode Will hold off on optimal CHF medical management. Thank you for involving us with care of this patient. We will continue to follow. Please call with questions. PDMP PDMP Reviewed: Not Reviewed Consult Attestations Medical Necessity Statement: Care expected to cross 2 midnights. Coding Level of Care Code Acute Code for [facility] Diagnoses CAD (coronary artery disease) I25.10 Afib I48.91 Acute on chronic heart failure with reduced ejection fraction (HFrEF, <= 40%) and combined systolic and diastolic dysfunction I50.43 Dyspnea on exertion R06.09 Hypotension I95.9 Chronic obstructive pulmonary disease with acute exacerbation J44.1 COPD type: COPD with acute exacerbation
--- NOTE | 2025-04-04 12:29 | PC.NURSE ---
notified roentgenologist on pt's orthostatic blood pressure results: Layin/63,map-70, HR-101 Sitting-84/65 map-71, HR-105 Standing-78/57 map-64, HR-112
[2025-04-05] VITALS (15 sets, daily range): BP systolic 91–115; BP diastolic 66–92; PULSE 79–119; RESP 16–34; TEMP 36.3–36.6; O2SAT 91–99
[2025-04-05 04:11] LABS: Hematocrit 37.3 % (37-53); Hemoglobin 11.70 g/dL (11.27-16.99); Mean Corpuscular HGB Conc 31.4 g/dL (30-55); Mean Corpuscular Hemoglobin 28.1 pg (27-33); Mean Corpuscular Volume 89.7 fl (82-101); Nucleated Red Blood Cells % 0 %; Platelet Count 154 10^3/cmm (157-399); Red Blood Count 4.16 10^6/uL (3.85-5.65); White Blood Count 14.93 10^3/uL (3.29-11.43)
[2025-04-05 04:29] LABS: Anion Gap 16.8 (5-19); Blood Urea Nitrogen 29 mg/dL (8-23); Calcium 10.0 mg/dL (8.5-10.5); Carbon Dioxide 25 mmol/L (22-29); Chloride 98 mmol/L (98-107); Creatinine Clr Calc Pharmacy 68.2535; Glucose 189 mg/dL (65-115); Osmolality Calculated 291 mOsm/kg (285-295); Potassium 4.8 mmol/L (3.5-5.1); Sodium 135 mmol/L (136-145)
[2025-04-05] MEDS: ferrous sulfate EC 325 mg Tablet PO (04:37)
[2025-04-05] MEDS: methylPREDNISolone sod succ 40 mg/mL INJ IVP ×3 (07:58→19:26)
--- NOTE | 2025-04-05 08:11 | USCV_ITS ---
Philippe Dahl Age: 74 Gender: M : 1950 Exam Date: 04/05/2025 08:47 Ordering Phys: Char Linder Technologist: SUSHMA Exam Location: [facility] Indication: LVEF. Fluid Overload BP: 115 / 92 HR: Rhythm: Sinus Technical Quality: Adequate MEASUREMENTS (Male / Female) Normal Values 2D ECHO LV Diastolic Diameter PLAX 5.0 cm 4.2 - 5.9 / 3.9 - 5.3 cm IVS Diastolic Thickness 0.9 cm 0.6 - 1.0 / 0.6 - 0.9 cm IVS Systolic Thickness 1.1 cm LVPW Diastolic Thickness 1.4 cm 0.6 - 1.0 / 0.6 - 0.9 cm LVPW Systolic Thickness 2.0 cm LVOT Diameter 2.0 cm LV Ejection Fraction 2D Teich 55.4 % LV Ejection Fraction MOD 4C 43.3 % LV Ejection Fraction MOD 2C 41.7 % LV Ejection Fraction 2C AL 42.7 % LA Diameter 4.0 cm RA Systolic Volume 4C AL 54.2 ml RA Systolic Volume 4C MOD 52.0 ml Aorta at Sinotubular Diameter 2.7 cm M-MODE LA Ao Ratio MM 1.3 AV Cusp Separation MM 1.1 cm FINDINGS Left Ventricle Right Ventricle Right Atrium Left Atrium IA Septum Mitral Valve Aortic Valve Tricuspid Valve Pulmonic Valve Pericardium Aorta IVC CONCLUSIONS Limited echo performed to assess LV systolic function. LV systolic function is mildly reduced with EF of 40-45%. Mild global hypokinesis. Nahum Hollins MD (Electronically Signed) Final Date: 05 April 2025 11:53 S
--- NOTE | 2025-04-05 08:50 | P.PN_ITS ---
<Statement entered by Nahum Hollins M.D - 04/08/25 09:23> Patient was cared for in conjunction with an advanced practice practitioner. I reviewed the chart and all pertinent data including imaging, telemetry, and laboratory results. I discussed the patient in detail with the advanced practice practitioner. Please see their note for agreed upon plan of care and results for the patient. Subjective 2 Subjective: Obtaining limited echocardiogram this morning to reassess LVEF given the hypotension even off heart failure medications. No chest pain, had transient shortness of breath this morning. He is in sinus tachycardia, rate 95-110 bpm. Vitals/I&O/Wt Last Vital Signs Temp 97.4 F L 04/05/25 07:00 Pulse 105 H 04/05/25 08:13 Resp 20 H 04/05/25 08:13 BP 115/92 04/05/25 07:00 Pulse Ox 91 04/05/25 08:13 O2 Del Method Room Air 04/05/25 08:13 O2 Flow Rate 1 04/05/25 08:05 04/04/25 04/05/25 04/05/25 22:59 06:59 14:59 Intake Total 240 / 720 240 / 240 Output Total 430 / 980 Balance -190 / -260 240 / 240 Weight last 48 hrs Weight 148 lb 6.4 oz Weight 148 lb 6.4 oz Weight 149 lb 4.8 oz Weight 144 lb 1.6 oz Physical Exam 2 Const: COMMON NORMALS: no acute distress and patient oriented x3 GENERAL APPEARANCE: cooperative and comfortable ORIENTATION/CONSCIOUSNESS: Yes awake, Yes oriented to person, Yes oriented to place and Yes oriented to time Chest: COMMONS NORMALS: normal inspection of the chest and normal palpation of entire chest wall CHEST: Yes Symmetrical chest wall rise Resp: COMMON NORMALS: normal respiratory effort, No retractions, No use of accessory muscles and clear to auscultation bilaterally EFFORT & INSPECTION: Yes symmetric chest movement AUSCULTATION: clear to auscultation bilaterally Cardio: COMMON NORMALS: regular rate, regular rhythm, S1 normal heart sound present, S2 normal heart sound present, No gallops present (Cardio), No clicks present (Cardio), No murmurs present (Cardio) and No rub (Cardio) RATE: r egular rate RHYTHM: regular rhythm HEART SOUNDS: S1 normal heart sound present and S2 normal heart sound present PERIPHERAL PULSES: radial pulses present Extremity: COMMON NORMALS: no pedal edema Neuro: COMMON NORMALS: patient oriented x3 and moves all extremities S ENSORIUM/ORIENTATION: Yes oriented to person, Yes oriented to place and Yes oriented to time Data 04/05/25 03:44 04/05/25 03:44 A&P Assessment and plan 1. Acute on chronic heart failure with reduced ejection fraction (HFrEF, <= 40%) and combined systolic and diastolic dysfunction: 2. Afib: 3. CAD (coronary artery disease): 4. Hyperlipidemia: 5. Hypertension: 6. Syncope: Plan: Records from [facility] have been requested but not yet received. No shocks on the interrogation of ICD. Continue metoprolol for control of heart rate. He appears euvolemic. Continue Eliquis, Jardiance, aspirin, statin. Based on results of echocardiogram, can adjust medications. PDMP PDMP Reviewed: Not Reviewed Attestations 2 Medical Necessity Statement*: heart failure, syncope Coding Level of Care Code Acute Code for Chg Fwd Diagnoses Acute on chronic heart failure with reduced ejection fraction (HFrEF, <= 40%) and combined systolic and diastolic dysfunction I50.43 Afib I48.91 CAD (coronary artery disease) I25.10 Hyperlipidemia E78.5 Hypertension I10 Syncope R55
--- NOTE | 2025-04-05 09:04 | PC.NURSE ---
Patient requested something for severe headache, tylenol given.
[2025-04-05 10:30] LABS: Estmated Average Glucose 123; Hemoglobin A1C 5.9 % (4.0-6.0)
[2025-04-05 10:34] LABS: Troponin T (5th) Once 21 ng/L (0-15)
[2025-04-05 10:49] LABS: Iron 47 ug/dL (59-158); Total Iron Binding Capacity 257 mcg/dl; Unsaturated Iron Binding 210 ug/dL (112-347); Vitamin B12 496 pg/mL (232-1245)
--- NOTE | 2025-04-05 13:17 | CT_ITS ---
WS: [id number] CT CHEST ANGIOGRAPHY WITH REFORMATS HISTORY: Syncope TECHNIQUE: Contiguous axial images are obtained through the chest during arterial injection of intravenous contrast. Images are reconstructed to evaluate the pulmonary arteries. MIP imaging also reviewed. All CT scans at [facility] use at least one of these dose optimization techniques: automated exposure control; mA and/or kV adjustment per patient size (includes targeted exams where dose is matched to clinical indication); or iterative reconstruction. CONTRAST: Omnipaque 350; 100 mL IV. DLP: 366.19 mGy.cm COMPARISON: 03/31/2025 CT Adequate opacification of the central pulmonary arteries. No central pulmonary emboli. Normal enhancement through the lobar branches. Beyond the lobar branches the opacification is limited by motion and contrast injection bolus. Mild atherosclerosis aorta Moderate cardiomegaly. No RIGHT heart strain. Prior CABG. Small but layering and slightly enlarging bilateral pleural effusions. Diffuse hazy attenuation from edema throughout both lungs. No dense consolidation or pneumonia. Dual lead cardiac pacer is causing some artifact through the thorax. Mild soft tissue anasarca. Large hiatal hernia. No adrenal mass. CT/CT angio chest PE protcl [id number] IMPRESSION: 1. No central pulmonary embolism. Limited opacification of the pulmonary arter ies. 2. Small layering bilateral pleural effusions have slightly increased in size since 03/31/2025. 3. Diffuse moderate interstitial edema. 4. No pneumonia. 5. Prior CABG. 6. Dual-lead LEFT subclavian cardiac pacer. 7. Cardiomegaly. 8. Large hiatal hernia.
--- NOTE | 2025-04-05 13:34 | P.PN_ITS ---
Subjective 2 Subjective: Hospital course, labs appreciated. Seen with family at bedside. Patient had just come back from the restroom and was having difficulty in breathing. As per the family patient has difficulty breathing on minimal exertion which has been getting worse for last 4 to 5 months. He does not have oxygen at home but does use his girlfriends oxygen up to 2 L. Denies any nausea, vomiting, headache. Heart rate elevated. Medications: Reviewed: Yes Vitals/I&O/Wt Last Vital Signs Temp 97.8 F 04/05/25 11:35 Pulse 119 H 04/05/25 11:35 Resp 34 H 04/05/25 11:35 BP 102/83 04/05/25 11:35 Pulse Ox 93 04/05/25 11:35 O2 Del Method Room Air 04/05/25 11:35 O2 Flow Rate 1 04/05/25 08:05 04/04/25 04/05/25 04/05/25 22:59 06:59 14:59 Intake Total 240 / 720 480 / 480 Output Total 430 / 980 Balance -190 / -260 480 / 480 Weight last 48 hrs Weight 67.313 kg Weight 67.313 kg Weight 67.721 kg Physical Exam 2 Narrative: GEN: Mild distress because of difficulty in breathing, AO x 3, tachypneic HEENT: Normocephalic, atraumatic, PERRLA Neck: Supple Respiratory: Bronchial breath sounds over lung espino bilaterally with occasional rhonchi right more than left Cardio: Tachycardia, regular rhythm, S1, S2, no murmur noted Abdomen: Soft, nontender, nondistended, normoactive bowel sounds Extremity: Warm, no edema Neuro: Oriented x 3, no focal neurodeficits Skin: No rash or lesion Data 04/05/25 03:44 04/05/25 03:44 A&P Assessment and plan 1. Syncope: 2. Acute on chronic hypoxic respiratory failure: 3. Chronic obstructive pulmonary disease with acute exacerbation: No home O2, currently on 1 L/min oxygen Procalcitonin normal Started him on Solu-Medrol yesterday, will decrease to 40 mg every 12 today Ipratropium and budesonide nebs Monitor O2 sats and wean oxygen as tolerated 4. Acute on chronic heart failure with reduced ejection fraction (HFrEF, <= 40%) and combined systolic and diastolic dysfunction: He has ischemic cardiomyopathy status post CABG LVEF 40% on 04/01/2025 Recently admitted for syncope and hypotension and was taken off his CHF meds He was given IV Lasix here however given his soft blood pressure we will hold off for now Unable to tolerate full GMDT due to hypotension I have consulted cardiology and input is appreciated Strict I's and O's Daily weights Telemetry monitoring 5. Hypotension: 6. Dyspnea on exertion: 7. Afib: Unspecified atrial fibrillation Continue apixaban 8. CAD (coronary artery disease): Status post CABG in July Continue aspirin 9. Hypertension: 10. Hyperlipidemia: Atorvastatin 11. GERD (gastroesophageal reflux disease): Protonix 12. Depression: Citalopram Plan: Plan for the day: Syncope could be multifactorial. Arrhythmia has been ruled out with ICD interrogation and telemetry monitoring. Ischemia ruled out with negative troponins and repeat limited echocardiogram showing stable EF of 40 to 45% without additional regional wall motion abnormality. Will repeat one-time troponin. Syncope could be in setting of hypoxia as patient does not have his own oxygen. Continues to smoke. Having dyspnea on exertion. D-dimer mildly elevated. Will check CTA chest to rule out PE. Increase Solu-Medrol 40 mg Q6 hourly. Continue with ipratropium, Pulmicort. Add Xopenex. Oxygen supplementation keeping saturation over 88%. Currently euvolemic. Hold off on diuretics. Tachycardic. Add low-dose metoprolol 12.5 mg twice daily. Monitor blood pressures with goal of less than 140/90 mmHg with mean over 65. Recheck orthostatic blood pressures. Start on Levaquin 750 mg oral daily for at least a 5-day course. CODE STATUS: Discussed detail with the patient. Daughter will be the DPOA. Full code. Cardiac diet. Protonix for PUD prophylaxis Eliquis will be sufficient for DVT prophylaxis PDMP PDMP Reviewed: Not Reviewed Attestations 2 Medical Necessity Statement*: Requires further hospitalization for monitoring and management of syncope with concerns for hypoxic respiratory failure due to dyspnea on exertion from COPD exacerbation in a patient with history of ischemic cardiomyopathy post CABG Diagnoses Syncope R55 Acute on chronic hypoxic respiratory failure J96.21 Chronic obstructive pulmonary disease with acute exacerbation J44.1 COPD type: COPD with acute exacerbation Acute on chronic heart failure with reduced ejection fraction (HFrEF, <= 40%) and combined systolic and diastolic dysfunction I50.43 Hypotension I95.9 Dyspnea on exertion R06.09 Afib I48.91 CAD (coronary artery disease) I25.10 Hypertension I10 Hyperlipidemia E78.5 GERD (gastroesophageal reflux disease) K21.9 Depression F32.A
[2025-04-05] MEDS: iohexol 350 mg/mL 500 mL Btl (per mL) IV (13:55)
[2025-04-05 18:50] LABS: Coronavirus 229E,HKU1,NL63,OC4 Not Detected (NOT DETECT); Parainfluenza Virus Type 1 Not Detected (NOT DETECT); Parainfluenza Virus Type 2 Not Detected (NOT DETECT); Parainfluenza Virus Type 3 Not Detected (NOT DETECT); Parainfluenza Virus Type 4 Not Detected (NOT DETECT); SARS-COV-2 Not Detected (NOT DETECT)
[2025-04-05 21:43] LABS: Glucose Urine UA 3+ (Normal); Nitrate Urine Negative (Negative)
[2025-04-05 22:01] LABS: Add Urine Microscopic? YES; Specific Gravity, Urine 1.047 (1.005-1.030); UA Manual Slide Review YES; UA Slide Review UA Slide Review Perf
[2025-04-06] VITALS (13 sets, daily range): BP systolic 87–111; BP diastolic 63–84; PULSE 92–108; RESP 17–30; TEMP 36.2–36.6; O2SAT 93–98; BMI 20.2
[2025-04-06] MEDS: methylPREDNISolone sod succ 40 mg/mL INJ IVP ×4 (00:41→20:42)
[2025-04-06 04:29] LABS: Hematocrit 38.1 % (37-53); Hemoglobin 12.00 g/dL (11.27-16.99); Mean Corpuscular HGB Conc 31.5 g/dL (30-55); Mean Corpuscular Hemoglobin 28.3 pg (27-33); Mean Corpuscular Volume 89.9 fl (82-101); Nucleated Red Blood Cells % 0 %; Platelet Count 202 10^3/cmm (157-399); Red Blood Count 4.24 10^6/uL (3.85-5.65); White Blood Count 12.67 10^3/uL (3.29-11.43)
[2025-04-06 04:54] LABS: Alanine Aminotransferase 44 U/L (0-41); Albumin Level 4.1 g/dL (3.5-5.2); Alkaline Phosphatase 128 U/L (40-130); Anion Gap 17.0 (5-19); Aspartate Amino Transferase 38 U/L (0-40); Blood Urea Nitrogen 38 mg/dL (8-23); Calcium 9.9 mg/dL (8.5-10.5); Carbon Dioxide 25 mmol/L (22-29); Chloride 97 mmol/L (98-107); Creatinine Clr Calc Pharmacy 85.1242; Globulin 2.5 g/dL (1.3-4.6); Glucose 230 mg/dL (65-115); Magnesium 2.2 mg/dL (1.7-2.3); Osmolality Calculated 294 mOsm/kg (285-295); Potassium 5.0 mmol/L (3.5-5.1); Sodium 134 mmol/L (136-145); Total Protein 6.6 g/dL (6.6-8.7)
[2025-04-06 04:59] LABS: Cholesterol 153 mg/dL (0-200); HDL Cholesterol 47 mg/dL (60-100); Triglycerides 76 mg/dL (0-150); VLDL Cholestrol Calculation 15 mg/dL (0-30)
[2025-04-06] MEDS: ferrous sulfate EC 325 mg Tablet PO (05:35)
--- NOTE | 2025-04-06 09:28 | P.PN_ITS ---
<Statement entered by Geoffrey Sebastian 04/10/25 13:59> Patient was cared for in conjunction with an advanced practice practitioner.? I reviewed the chart and all pertinent data including imaging, telemetry, and laboratory results.? I discussed the patient in detail with the advanced practice practitioner.? Please see their note for progress note, testing results and agreed upon plan of care for the patient. Subjective 2 Subjective: Feeling better. Noting decreased oxygen saturation with exertion. Blood pressure is soft. No chest pain, no shortness of breath at rest. Vitals/I&O/Wt Last Vital Signs Temp 97.9 F 04/06/25 08:00 Pulse 102 H 04/06/25 08:00 Resp 18 04/06/25 08:00 BP 108/84 04/06/25 08:00 Pulse Ox 93 04/06/25 08:00 O2 Del Method Nasal Cannula 04/06/25 08:00 O2 Flow Rate 1 04/06/25 08:00 04/05/25 04/06/25 04/06/25 22:59 06:59 14:59 Intake Total 120 / 840 240 / 840 240 / 240 Output Total 450 / 850 400 / 850 Balance -330 / -10 -160 / -10 240 / 240 Weight last 48 hrs Weight 145 lb 1 oz Weight 148 lb 6.4 oz Weight 148 lb 6.4 oz Physical Exam 2 Const: COMMON NORMALS: no acute distress and patient oriented x3 GENERAL APPEARANCE: cooperative and comfortable ORIENTATION/CONSCIOUSNESS: Yes awake, Yes oriented to person, Yes oriented to place and Yes oriented to time Chest: COMMONS NORMALS: normal inspection of the chest and normal palpation of entire chest wall CHEST: Yes Symmetrical chest wall rise Resp: COMMON NORMALS: normal respiratory effort, No retractions, No use of accessory muscles and clear to auscultation bilaterally EFFORT & INSPECTION: Yes symmetric chest movement AUSCULTATION: clear to auscultation bilaterally Cardio: COMMON NORMALS: regular rate, regular rhythm, S2 normal heart sound present, No gallops present (Cardio), No clicks present (Cardio) and No rub (Cardio) RATE: regular rate RHYTHM: regular rhythm HEART SOUNDS: S2 normal heart sound present and Murmur heart sound present systolic Location: apex Intensity: II/ PERIPHERAL PULSES: radial pulses present Extremity: COMMON NORMALS: no pedal edema Neuro: COMMON NORMALS: patient oriented x3 and moves all extremities S ENSORIUM/ORIENTATION: Yes oriented to person, Yes oriented to place and Yes oriented to time Data 04/06/25 03:47 04/06/25 03:47 A&P Assessment and plan 1. Acute on chronic heart failure with reduced ejection fraction (HFrEF, <= 40%) and combined systolic and diastolic dysfunction: 2. Dyspnea on exertion: 3. Afib: 4. Hypotension: 5. Syncope: 6. Acute on chronic hypoxic respiratory failure: Plan: Due to hypotension possibly contributing to syncope, medication regimen scaled back to low dose beta ketty, metoprolol 12.5 BID. Continue aspirin, Eliquis, statin. No further cardiac testing recommended. PDMP PDMP Reviewed: Not Reviewed Attestations 2 Medical Necessity Statement*: per hospitalist Coding Level of Care Code Acute Code for [facility] Diagnoses Acute on chronic heart failure with reduced ejection fraction (HFrEF, <= 40%) and combined systolic and diastolic dysfunction I50.43 Dyspnea on exertion R06.09 Afib I48.91 Hypotension I95.9 Syncope R55 Acute on chronic hypoxic respiratory failure J96.21
--- NOTE | 2025-04-06 11:37 | P.PN_ITS ---
Subjective 2 Subjective: Today morning patient was seen laying comfortably in bed with caregiver at bedside. He is on 1 L of oxygen supplementation saturating more than 90%. States breathing is slightly better. Has been having expectoration with cough now. Medications: Reviewed: Yes Vitals/I&O/Wt Last Vital Signs Temp 97.9 F 04/06/25 08:00 Pulse 102 H 04/06/25 08:00 Resp 18 04/06/25 08:00 BP 108/84 04/06/25 08:00 Pulse Ox 93 04/06/25 08:00 O2 Del Method Nasal Cannula 04/06/25 08:00 O2 Flow Rate 1 04/06/25 08:00 04/05/25 04/06/25 04/06/25 22:59 06:59 14:59 Intake Total 120 / 600 240 / 840 240 / 240 Output Total 450 / 450 400 / 850 Balance -330 / 150 -160 / -10 240 / 240 Weight last 48 hrs Weight 65.799 kg Weight 67.313 kg Weight 67.313 kg Physical Exam 2 Narrative: GEN: Mild distress because of difficulty in breathing, AO x 3, tachypneic HEENT: Normocephalic, atraumatic, PERRLA Neck: Supple Respiratory: Bronchial breath sounds over lung espino bilaterally with occasional rhonchi right more than left Cardio: Tachycardia, regular rhythm, S1, S2, no murmur noted Abdomen: Soft, nontender, nondistended, normoactive bowel sounds Extremity: Warm, no edema Neuro: Oriented x 3, no focal neurodeficits Skin: No rash or lesion Data 04/06/25 03:47 04/06/25 03:47 A&P Assessment and plan 1. Syncope: 2. Acute on chronic hypoxic respiratory failure: 3. Chronic obstructive pulmonary disease with acute exacerbation: No home O2, currently on 1 L/min oxygen Procalcitonin normal Started him on Solu-Medrol yesterday, will decrease to 40 mg every 12 today Ipratropium and budesonide nebs Monitor O2 sats and wean oxygen as tolerated 4. Acute on chronic heart failure with reduced ejection fraction (HFrEF, <= 40%) and combined systolic and diastolic dysfunction: He has ischemic cardiomyopathy status post CABG LVEF 40% on 04/01/2025 Recently admitted for syncope and hypotension and was taken off his CHF meds He was given IV Lasix here however given his soft blood pressure we will hold off for now Unable to tolerate full GMDT due to hypotension I have consulted cardiology and input is appreciated Strict I's and O's Daily weights Telemetry monitoring 5. Hypotension: 6. Dyspnea on exertion: 7. Afib: Unspecified atrial fibrillation Continue apixaban 8. CAD (coronary artery disease): Status post CABG in July Continue aspirin 9. Essential hypertension: 10. Hyperlipidemia: Atorvastatin 11. GERD (gastroesophageal reflux disease): Protonix 12. Mild episode of recurrent major depressive disorder: Citalopram Plan: Plan for the day: Syncope could be multifactorial. Arrhythmia has been ruled out with ICD interrogation and telemetry monitoring. Ischemia ruled out with negative troponins and repeat limited echocardiogram showing stable EF of 40 to 45% without additional regional wall motion abnormality. Repeat troponin negative for acute abnormality. Patient does not have any ischemia. CTA negative for PE. Most likely in setting of hypoxia as patient does not have home oxygen. Currently does have concerns for COPD exacerbation with mild pneumonia. Does not have leukocytosis. No concern for fever. Hold off on broadening the antibiotics for now. Continue with oral Levaquin. Check MRSA swab. Sputum culture pending. Continue with current dose of Solu-Medrol and nebulization treatment. Patient euvolemic to slightly dehydrated. Holding off on diuretics. Given concern for CHF at baseline we will also hold off on IV hydration. Monitor BMP daily. Blood pressures soft. Continues to have tachycardia. Continue with metoprolol 12.5 mg twice daily. Add midodrine 5 mg 3 times daily. Appreciate cardiology recommendations. CODE STATUS: Discussed detail with the patient. Daughter will be the DPOA. Full code. Cardiac diet. Protonix for PUD prophylaxis Eliquis will be sufficient for DVT prophylaxis PDMP PDMP Reviewed: Not Reviewed Attestations 2 Medical Necessity Statement*: Requires further hospitalization hypoxia in setting of COPD exacerbation, syncope in setting of hypoxia, hypotension Diagnoses Syncope R55 Acute on chronic hypoxic respiratory failure J96.21 Chronic obstructive pulmonary disease with acute exacerbation J44.1 COPD type: COPD with acute exacerbation Acute on chronic heart failure with reduced ejection fraction (HFrEF, <= 40%) and combined systolic and diastolic dysfunction I50.43 Hypotension I95.9 Dyspnea on exertion R06.09 Afib I48.91 CAD (coronary artery disease) I25.10 Essential hypertension I10 Hypertension type: essential hypertension Hyperlipidemia E78.5 GERD (gastroesophageal reflux disease) K21.9 Mild episode of recurrent major depressive disorder F33.0 Depression Type: major depressive disorder Major depression recurrence: recurrent Active/Remission status: currently active Major depression episode severity: mild
[2025-04-06 15:53] LABS: MRSA PCR OZH (swab) NOT DETECTED (Negative)
[2025-04-06] MEDS: HYDROcodone-acetaminophen 5-325 mg Tablet 1 TAB PO (20:41)
[2025-04-07] VITALS (13 sets, daily range): BP systolic 90–104; BP diastolic 67–79; PULSE 76–101; RESP 13–21; TEMP 36.3–36.8; O2SAT 92–99; BMI 20.5
[2025-04-07] MEDS: methylPREDNISolone sod succ 40 mg/mL INJ IVP ×4 (02:41→20:14)
[2025-04-07 04:04] LABS: Hematocrit 36.2 % (37-53); Hemoglobin 11.70 g/dL (11.27-16.99); Mean Corpuscular HGB Conc 32.3 g/dL (30-55); Mean Corpuscular Hemoglobin 29.2 pg (27-33); Mean Corpuscular Volume 90.3 fl (82-101); Nucleated Red Blood Cells % 0 %; Platelet Count 185 10^3/cmm (157-399); Red Blood Count 4.01 10^6/uL (3.85-5.65); White Blood Count 11.18 10^3/uL (3.29-11.43)
[2025-04-07 04:33] LABS: Alanine Aminotransferase 88 U/L (0-41); Albumin Level 3.8 g/dL (3.5-5.2); Alkaline Phosphatase 108 U/L (40-130); Anion Gap 17.8 (5-19); Aspartate Amino Transferase 67 U/L (0-40); Blood Urea Nitrogen 33 mg/dL (8-23); Calcium 9.6 mg/dL (8.5-10.5); Carbon Dioxide 24 mmol/L (22-29); Chloride 97 mmol/L (98-107); Creatinine Clr Calc Pharmacy 84.4093; Globulin 2.1 g/dL (1.3-4.6); Glucose 247 mg/dL (65-115); Osmolality Calculated 294 mOsm/kg (285-295); Potassium 4.8 mmol/L (3.5-5.1); Sodium 134 mmol/L (136-145); Total Protein 5.9 g/dL (6.6-8.7)
[2025-04-07 04:34] LABS: Magnesium 2.2 mg/dL (1.7-2.3)
[2025-04-07] MEDS: ferrous sulfate EC 325 mg Tablet PO (04:55)
--- NOTE | 2025-04-07 08:58 | XRR_ITS ---
PROCEDURE INFORMATION: Exam: XR Chest Exam date and time: 04/07/2025 10:51 AM Age: 74 years old Clinical indication: Shortness of breath; Prior surgery; Surgery date: 6+ months; Surgery type: Open heart pacer; Additional info: Pna vs chf TECHNIQUE: Imaging protocol: Radiologic exam of the chest. Views: 1 view. COMPARISON: CT angio chest PE protcl [id number] 04/05/2025 1:48 PM FINDINGS: Tubes, catheters and devices: Left subclavian AICD with right atrial appendage and right ventricular leads. Lungs: Improving aeration with decreased interstitial opacities compared with prior. Pleural spaces: Increasing small left pleural effusion. Trace right pleural effusion. Heart/Mediastinum: Left atrial appendage occlusion clip. Stable cardiomediastinal silhouette. Bones/joints: Post median sternotomy and CABG. XR/XR chest 1V portable [id number] IMPRESSION: 1. Worsening left basilar opacities may represent a combination of pleural effusion and atelectasis, though developing infiltrate is not excluded. Otherwise improving interstitial opacities bilaterally. 2. Increasing small left pleural effusion.
--- NOTE | 2025-04-07 09:51 | P.PN_ITS ---
<Statement entered by Nahum Hollins M.D - 04/10/25 14:00> Patient was cared for in conjunction with an advanced practice practitioner.? I reviewed the chart and all pertinent data including imaging, telemetry, and laboratory results.? I discussed the patient in detail with the advanced practice practitioner.? Please see their note for progress note, testing results and agreed upon plan of care for the patient. Subjective 2 Subjective: BP still soft, started on midodrine yesterday. No chest pain, no shortness of breath at rest. Vitals/I&O/Wt Last Vital Signs Temp 97.7 F 04/07/25 08:00 Pulse 91 04/07/25 08:00 Resp 14 04/07/25 08:00 BP 96/74 04/07/25 08:00 Pulse Ox 93 04/07/25 08:00 O2 Del Method Nasal Cannula 04/07/25 07:55 O2 Flow Rate 1 04/07/25 07:55 04/06/25 04/07/25 04/07/25 22:59 06:59 14:59 Intake Total 240 / 720 240 / 240 Output Total 650 / 650 Balance -410 / 70 240 / 240 Weight last 48 hrs Weight 147 lb 0.773 oz Weight 145 lb 1 oz Physical Exam 2 Const: COMMON NORMALS: no acute distress and patient oriented x3 GENERAL APPEARANCE: cooperative and comfortable ORIENTATION/CONSCIOUSNESS: Yes awake, Yes oriented to person, Yes oriented to place and Yes oriented to time Chest: COMMONS NORMALS: normal inspection of the chest and normal palpation of entire chest wall CHEST: Yes Symmetrical chest wall rise Resp: COMMON NORMALS: normal respiratory effort, No retractions, No use of accessory muscles and clear to auscultation bilaterally EFFORT & INSPECTION: Yes symmetric chest movement AUSCULTATION: clear to auscultation bilaterally OTHER: scattered crackles in bases, clears with coughing Cardio: COMMON NORMALS: regular rate, regular rhythm, S2 normal heart sound present, No gallops present (Cardio), No clicks present (Cardio) and No rub (Cardio) RATE: regular rate RHYTHM: regular rhythm HEART SOUNDS: S2 normal heart sound present and Murmur heart sound present systolic Location: apex Intensity: II/ PERIPHERAL PULSES: radial pulses present Extremity: COMMON NORMALS: no pedal edema Neuro: COMMON NORMALS: patient oriented x3 and moves all extremities S ENSORIUM/ORIENTATION: Yes oriented to person, Yes oriented to place and Yes oriented to time Data 04/07/25 03:33 04/07/25 03:33 A&P Assessment and plan 1. CAD (coronary artery disease): 2. Afib: 3. Acute on chronic heart failure with reduced ejection fraction (HFrEF, <= 40%) and combined systolic and diastolic dysfunction: 4. Dyspnea on exertion: 5. Hypotension: 6. Chronic obstructive pulmonary disease with acute exacerbation: Plan: No further cardiac testing planned. Hospitalist managing COPD, oxygen. Midodrine helping, but BP still soft. Appears euvolemic. Good control of heart rate with metoprolol. Restarted Jardiance. PDMP PDMP Reviewed: Not Reviewed Attestations 2 Medical Necessity Statement*: per hospitalist Coding Level of Care Code Acute Code for [facility] Diagnoses CAD (coronary artery disease) I25.10 Afib I48.91 Acute on chronic heart failure with reduced ejection fraction (HFrEF, <= 40%) and combined systolic and diastolic dysfunction I50.43 Dyspnea on exertion R06.09 Hypotension I95.9 Chronic obstructive pulmonary disease with acute exacerbation J44.1 COPD type: COPD with acute exacerbation
--- NOTE | 2025-04-07 10:07 | PC.NURSE ---
per dr agrawal, brijesh tangchhaya until 04/08
--- NOTE | 2025-04-07 11:24 | PC.SOCIAL ---
IMM Updated Updated pt & significant other on IMM. No questions voiced. Provided pt a copy. Initialed, dated, & timed a copy & placed in chart.
--- NOTE | 2025-04-07 12:30 | P.PN_ITS ---
Subjective 2 Subjective: No acute vents overnight. Patient states he is feeling a lot better. Breathing is better. No further episodes of dizziness. Caregiver at bedside. Vitals/I&O/Wt Last Vital Signs Temp 97.7 F 04/07/25 08:00 Pulse 91 04/07/25 08:00 Resp 14 04/07/25 08:00 BP 96/74 04/07/25 08:00 Pulse Ox 93 04/07/25 08:00 O2 Del Method Nasal Cannula 04/07/25 07:55 O2 Flow Rate 1 04/07/25 07:55 04/06/25 04/07/25 04/07/25 22:59 06:59 14:59 Intake Total 240 / 720 240 / 240 Output Total 650 / 650 Balance -410 / 70 240 / 240 Weight last 48 hrs Weight 66.7 kg Weight 65.799 kg Physical Exam 2 Narrative: GEN: Mild distress because of difficulty in breathing, AO x 3, HEENT: Normocephalic, atraumatic, PERRLA Neck: Supple Respiratory: Bronchial breath sounds over lung espino bilaterally with occasional rhonchi right more than left Cardio: Tachycardia, regular rhythm, S1, S2, no murmur noted Abdomen: Soft, nontender, nondistended, normoactive bowel sounds Extremity: Warm, no edema Neuro: Oriented x 3, no focal neurodeficits Skin: No rash or lesion Data 04/07/25 03:33 04/07/25 03:33 Micro: Microbiology 04/06/25 13:00 Gram Stain - Final Sputum - Expectorated Sputum Sputum Culture - Preliminary A&P Assessment and plan 1. Syncope: 2. Acute on chronic hypoxic respiratory failure: 3. Chronic obstructive pulmonary disease with acute exacerbation: No home O2, currently on 1 L/min oxygen Procalcitonin normal Started him on Solu-Medrol yesterday, will decrease to 40 mg every 12 today Ipratropium and budesonide nebs Monitor O2 sats and wean oxygen as tolerated 4. Acute on chronic heart failure with reduced ejection fraction (HFrEF, <= 40%) and combined systolic and diastolic dysfunction: He has ischemic cardiomyopathy status post CABG LVEF 40% on 04/01/2025 Recently admitted for syncope and hypotension and was taken off his CHF meds He was given IV Lasix here however given his soft blood pressure we will hold off for now Unable to tolerate full GMDT due to hypotension I have consulted cardiology and input is appreciated Strict I's and O's Daily weights Telemetry monitoring 5. Hypotension: 6. Dyspnea on exertion: 7. Afib: Unspecified atrial fibrillation Continue apixaban 8. CAD (coronary artery disease): Status post CABG in July Continue aspirin 9. Essential hypertension: 10. Hyperlipidemia: Atorvastatin 11. GERD (gastroesophageal reflux disease): Protonix 12. Mild episode of recurrent major depressive disorder: Citalopram Plan: Plan for the day: Syncope could be multifactorial. Arrhythmia has been ruled out with ICD interrogation and telemetry monitoring. Ischemia ruled out with negative troponins and repeat limited echocardiogram showing stable EF of 40 to 45% without additional regional wall motion abnormality. Repeat troponin negative for acute abnormality. Patient does not have any ischemia. CTA negative for PE. Blood pressure stable. Continue with midodrine 5 mg 3 times daily. Tachycardia resolved. Continue with metoprolol 12.5 mg twice daily. Hold off on increasing or adding new medications as per GDMT for heart failure. Follow-up sputum culture. For now continue with Levaquin. Leukocytosis resolved while being on Levaquin. Wean Solu-Medrol 40 mg 3 times daily. Continue with nebulization.. Will plan to ambulate today to monitor his saturations and blood pressures. Discharge plan: If patient remains hemodynamically stable not requiring more than 3 L of oxygen supplementation on exertion today will plan to discharge on oral antibiotics after home O2 evaluation next 24 hours. CODE STATUS: Discussed detail with the patient. Daughter will be the DPOA. Full code. Cardiac diet. Protonix for PUD prophylaxis Eliquis will be sufficient for DVT prophylaxis PDMP PDMP Reviewed: Not Reviewed Attestations 2 Medical Necessity Statement*: Requires further hospitalization for management of acute on chronic hypoxic respiratory failure in setting of COPD exacerbation, pneumonia, hypotension leading to syncope in a patient with history of systolic and diastolic congestive heart failure Diagnoses Syncope R55 Acute on chronic hypoxic respiratory failure J96.21 Chronic obstructive pulmonary disease with acute exacerbation J44.1 COPD type: COPD with acute exacerbation Acute on chronic heart failure with reduced ejection fraction (HFrEF, <= 40%) and combined systolic and diastolic dysfunction I50.43 Hypotension I95.9 Dyspnea on exertion R06.09 Afib I48.91 CAD (coronary artery disease) I25.10 Essential hypertension I10 Hypertension type: essential hypertension Hyperlipidemia E78.5 GERD (gastroesophageal reflux disease) K21.9 Mild episode of recurrent major depressive disorder F33.0 Depression Type: major depressive disorder Major depression recurrence: recurrent Active/Remission status: currently active Major depression episode severity: mild
[2025-04-08] VITALS (8 sets, daily range): BP systolic 88–105; BP diastolic 72–76; PULSE 86–94; RESP 18–30; TEMP 36.6–36.9; O2SAT 88–99
[2025-04-08 03:34] LABS: Hematocrit 37.8 % (37-53); Hemoglobin 11.90 g/dL (11.27-16.99); Mean Corpuscular HGB Conc 31.5 g/dL (30-55); Mean Corpuscular Hemoglobin 28.8 pg (27-33); Mean Corpuscular Volume 91.5 fl (82-101); Nucleated Red Blood Cells % 0 %; Platelet Count 197 10^3/cmm (157-399); Red Blood Count 4.13 10^6/uL (3.85-5.65); White Blood Count 9.96 10^3/uL (3.29-11.43)
[2025-04-08 03:56] LABS: Magnesium 2.3 mg/dL (1.7-2.3)
[2025-04-08 03:58] LABS: Alanine Aminotransferase 104 U/L (0-41); Albumin Level 4.0 g/dL (3.5-5.2); Alkaline Phosphatase 117 U/L (40-130); Anion Gap 17.2 (5-19); Aspartate Amino Transferase 48 U/L (0-40); Blood Urea Nitrogen 40 mg/dL (8-23); Calcium 10.0 mg/dL (8.5-10.5); Carbon Dioxide 26 mmol/L (22-29); Chloride 96 mmol/L (98-107); Creatinine Clr Calc Pharmacy 75.4086; Globulin 2.1 g/dL (1.3-4.6); Glucose 283 mg/dL (65-115); Osmolality Calculated 298 mOsm/kg (285-295); Potassium 5.2 mmol/L (3.5-5.1); Sodium 134 mmol/L (136-145); Total Protein 6.1 g/dL (6.6-8.7)
[2025-04-08] MEDS: ferrous sulfate EC 325 mg Tablet PO (04:30)
[2025-04-08] MEDS: methylPREDNISolone sod succ 40 mg/mL INJ IVP (04:30)
--- NOTE | 2025-04-08 08:45 | P.DS_ITS ---
Discharge Providers Date of Admission: 04/04/25 09:16 Date of Discharge: April 08, 2025 Attending Provider at Admission: Amaris Peters MD Attending Provider at Discharge: Blas Danielson MD Primary Care Provider: YAMILA Almeida Diagnoses at Discharge Discharge Diagnosis 1. Syncope: 2. Acute on chronic hypoxic respiratory failure: 3. Chronic obstructive pulmonary disease with acute exacerbation: 4. Acute on chronic heart failure with reduced ejection fraction (HFrEF, <= 40%) and combined systolic and diastolic dysfunction: 5. Hypotension: 6. Dyspnea on exertion: 7. Afib: 8. CAD (coronary artery disease): 9. Essential hypertension: 10. Hyperlipidemia: 11. GERD (gastroesophageal reflux disease): 12. Mild episode of recurrent major depressive disorder: Reason for Visit Reason for Visit: sob Brief History: Philippe Dahl is a 74 year old male with chronic HFrEF (40%) with diastolic dysfunction, CAD status post CABG, ischemic cardiomyopathy with AICD/PPM in place, atrial fibrillation, COPD, hyperlipidemia, depression, and GERD presenting with shortness of breath. He was discharged yesterday. He was admitted for syncope related to hypotension. His CHF meds were held on discharge. He does not use oxygen at baseline. He returned to the ED today with shortness of breath. He was hypoxic on room air and was placed on 2 L/min O2. His BNP was elevated. Chest x-ray showed bilateral pulmonary interstitial infiltrates. He had a CT chest on 03/31/2025 which showed small bilateral pleural effusions with no definitive pneumonia. His procalcitonin was normal. Hospital Course Hospital Course Patient was admitted to the hospital further evaluation and management of syncope. On admission he was found to be hypotensive for which his antihypertensives were withheld. Cardiology was consulted. ACS was ruled out. It is believed syncope is most likely in setting of hypotension in setting of overt dehydration and hypoxia in setting of COPD exacerbation. Patient continue d to have soft blood pressures because of which GDMT medications for heart failure could not be restarted other than a very low-dose of metoprolol. Midodrine has been added to his medication list. Home O2 evaluation has been done prior to discharge. He is discharged in medically stable condition on nebulization treatment with Pulmicort and ipratropium with advised to stop smoking, midodrine 3 times a day. He is to check his blood pressure daily at home maintain a blood pressure diary with goal between 100?140 systolics. If she check his weight daily and to take Lasix only if needed for a body weight increase of more than 3 pounds. He is to restrict fluid intake to less than 50 ounces daily. Physical Exam Narrative: GEN: Mild distress because of difficulty in breathing, AO x 3, HEENT: Normocephalic, atraumatic, PERRLA Neck: Supple Respiratory: Bronchial breath sounds over lung espino bilaterally with occasional rhonchi right more than left Cardio: Tachycardia, regular rhythm, S1, S2, no murmur noted Abdomen: Soft, nontender, nondistended, normoactive bowel sounds Extremity: Warm, no edema Neuro: Oriented x 3, no focal neurodeficits Skin: No rash or lesion Discharge Data Studies Completed and Pending Completed Studies During Hospitalization Category Date Time Status CTA chest [CT angio chest PE protcl [id number]] Routine Cat Scan 04/05/25 13:17 Completed XR chest 1V portable [id number] Routine Exams 04/07/25 08:58 Completed XR chest 1V portable [id number] Stat Exams 04/03/25 06:51 Completed CV. echo limited [id number] Routine Ultrasound 04/05/25 08:11 Completed Pending at discharge Category Date Time Status Sputum Culture and Gram Stain Stat Lab 04/06/25 13:00 Results Radiology Impressions Chest CTA 04/05/25 13:17 IMPRESSION: 1. No central pulmonary embolism. Limited opacification of the pulmonary arteries. 2. Small layering bilateral pleural effusions have slightly increased in size since 03/31/2025. 3. Diffuse moderate interstitial edema. 4. No pneumonia. 5. Prior CABG. 6. Dual-lead LEFT subclavian cardiac pacer. 7. Cardiomegaly. 8. Large hiatal hernia. Chest X-Ray 04/07/25 08:58 IMPRESSION: 1. Worsening left basilar opacities may represent a combination of pleural effusion and atelectasis, though developing infiltrate is not excluded. Otherwise improving interstitial opacities bilaterally. 2. Increasing small left pleural effusion. Echocardiogram CONCLUSIONS Limited echo performed to assess LV systolic function. LV systolic function is mildly reduced with EF of 40-45%. Mild global hypokinesis. Nahum Hollins MD (Electronically Signed) Final Date: 05 April 2025 11:53 Microbiology 04/06/25 13:00 Sputum - Expectorated Sputum Gram Stain - Final 04/06/25 13:00 Sputum - Expectorated Sputum Sputum Culture - Final Laboratory Results WBC 9.96 10^3/uL (3.29-11.43) 04/08/25 03:07 RBC 4.13 10^6/uL (3.85-5.65) 04/08/25 03:07 Hgb 11.90 g/dL (11.27-16.99) 04/08/25 03:07 Hct 37.8 % (37-53) 04/08/25 03:07 MCV 91.5 fl (82-101) 04/08/25 03:07 MCH 28.8 pg (27-33) 04/08/25 03:07 MCHC 31.5 g/dL (30-55) 04/08/25 03:07 RDW 16.9 % (12.1-15.1) H 04/08/25 03:07 Plt Count 197 10^3/cmm (157-399) 04/08/25 03:07 MPV 11.8 fL (7.4-10.4) H 04/08/25 03:07 Neut % (Auto) 91.2 % 04/08/25 03:07 Lymph % (Auto) 3.5 % 04/08/25 03:07 [place] % (Auto) 4.6 % 04/08/25 03:07 Eos % (Auto) 0.0 % 04/08/25 03:07 Baso % (Auto) 0.1 % 04/08/25 03:07 Neut # (Auto) 9.08 10^3/uL (1.8-7.7) H 04/08/25 03:07 Lymph # (Auto) 0.4 10^3/uL (0.8-4.8) L 04/08/25 03:07 [place] # (Auto) 0.5 10^3/uL (0.2-0.9) 04/08/25 03:07 Eos # (Auto) 0.0 10^3/uL (0.0-0.8) 04/08/25 03:07 Baso # (Auto) 0.0 10^3/uL (0.0-0.1) 04/08/25 03:07 Nucleated RBC % (auto) 0 % 04/08/25 03:07 Nucleated RBCs # 0.0 /100WBC 04/08/25 03:07 D-Dimer 0.78 ug/mLFEU (0-0.59) H 04/04/25 10:10 Specimen Type Arterial 04/03/25 16:47 Sample Site Brachial, right 04/03/25 16:47 ABG pH 7.46 (7.35-7.45) H 04/03/25 16:47 ABG pCO2 41.3 mmHg (35-45) 04/03/25 16:47 ABG pO2 75.4 mmHg (80.0-100.0) L 04/03/25 16:47 ABG PO2/FiO2 Ratio 269 04/03/25 16:47 ABG HCO3 29.1 mmol/L (22-26) H 04/03/25 16:47 ABG O2 Saturation 95.4 04/03/25 07:14 ABG Base Excess 4.7 mmol/L (-2.0-2.0) H 04/03/25 16:47 [place] Test N/a 04/03/25 16:47 A-a O2 Gradient 3.2 mmHg (5-10) L 04/03/25 07:14 Hematocrit 36.6 % (42-52) L 04/03/25 16:47 Hgb O2 Saturation 93.4 % (95-100) L 04/03/25 07:14 Carboxyhemoglobin 1.9 %THgb (0.4-20.1) 04/03/25 07:14 Methemoglobin 0.2 % (0.4-1.5) L 04/03/25 07:14 Total Hemoglobin 12.1 g/dL (14-18) L 04/03/25 07:14 Sodium 141.0 mmol/L (131-143) 04/03/25 07:14 Potassium 3.9 mmol/L (3.5-5.0) 04/03/25 07:14 Glucose 121.0 mg/dL (70-115) H 04/03/25 07:14 Ionized Calcium 1.3 mmol/L (1.1-1.4) 04/03/25 07:14 O2 Delivery Device Nc 04/03/25 16:47 O2 Liters/Min 2.0 % 04/03/25 16:47 FiO2 28.0 % 04/03/25 16:47 Cereal Popper ID glc 04/03/25 16:47 Sodium 134 mmol/L (136-145) L 04/08/25 03:07 Potassium 5.2 mmol/L (3.5-5.1) H 04/08/25 03:07 Chloride 96 mmol/L (98-107) L 04/08/25 03:07 Carbon Dioxide 26 mmol/L (22-29) 04/08/25 03:07 Anion Gap 17.2 (5-19) 04/08/25 03:07 BUN 40 mg/dL (8-23) H 04/08/25 03:07 Creatinine 0.9 mg/dL (0.7-1.2) 04/08/25 03:07 GFR Calculation Not Reportable 04/08/25 03:07 Glucose 283 mg/dL (65-115) H 04/08/25 03:07 Estimat Average Glucose 123 04/05/25 02:55 Hemoglobin A1c 5.9 % (4.0-6.0) 04/05/25 02:55 Calculated Osmolality 298 mOsm/kg (285-295) H 04/08/25 03:07 Calcium 10.0 mg/dL (8.5-10.5) 04/08/25 03:07 Magnesium 2.3 mg/dL (1.7-2.3) 04/08/25 03:07 Iron 47 ug/dL (59-158) L 04/05/25 03:44 TIBC 257 mcg/dl 04/05/25 03:44 % Saturation 18.2 % (20-50) L 04/05/25 03:44 Unsat Iron Binding 210 ug/dL (112-347) 04/05/25 03:44 Total Bilirubin 0.6 mg/dL (0.15-1.2) 04/08/25 03:07 AST 48 U/L (0-40) H 04/08/25 03:07 ALT 104 U/L (0-41) H 04/08/25 03:07 Alkaline Phosphatase 117 U/L (40-130) 04/08/25 03:07 Troponin T 5th Gen ng/L 21 ng/L (0-15) H 04/05/25 03:44 NT-Pro-B Natriuret Pep 6754 pg/mL (0-125) H 04/03/25 07:03 Total Protein 6.1 g/dL (6.6-8.7) L 04/08/25 03:07 Albumin 4.0 g/dL (3.5-5.2) 04/08/25 03:07 Globulin 2.1 g/dL (1.3-4.6) 04/08/25 03:07 Triglycerides 76 mg/dL (0-150) 04/06/25 03:47 Cholesterol 153 mg/dL (0-200) 04/06/25 03:47 LDL Cholesterol, Calc 91 mg/dL (50-129) 04/06/25 03:47 Total VLDL Cholesterol 15 mg/dL (0-30) 04/06/25 03:47 HDL Cholesterol 47 mg/dL (60-100) L 04/06/25 03:47 Cholesterol/HDL Ratio 3.26 mg/dL (1.0-5.00) 04/06/25 03:47 Vitamin B12 496 pg/mL (232-1245) 04/05/25 03:44 Folate 7.9 ng/mL (4.5-32.2) 04/06/25 03:47 Procalcitonin 0.04 ng/mL (0-0.5) 04/03/25 07:03 TSH 0.71 uIU/mL (0.27-4.20) 04/04/25 02:25 Urine Color Yellow (Yellow) 04/05/25 21:33 Urine Appearance Clear (CLEAR) 04/05/25 21:33 Urine pH 5.5 (5-7) 04/05/25 21:33 Ur Specific [place] 1.047 (1.005-1.030) H 04/05/25 21:33 Urine Protein Trace (Negative) A 04/05/25 21: Urine Glucose (UA) 3+ (Normal) H 04/05/25 21:33 Urine Ketones Negative (Negative) 04/05/25 21: Urine Blood Negative (Negative) 04/05/25 21: Urine Nitrate Negative (Negative) 04/05/25 21: Urine Bilirubin Negative (Negative) 04/05/25 21: Urine Urobilinogen 1.0 mg/dL (Negative) 04/05/25 21: Ur Leukocyte Esterase Negative (Negative) 04/05/25 21:33 Urine RBC 0-4 /hpf (0-2) H 04/05/25 21:33 Urine WBC 0-4 /hpf (0-5) H 04/05/25 21:33 Ur Squamous Epith Cells 0-4 /hpf (0-5) H 04/05/25 21:33 Amorphous Sediment Not Reportable 04/05/25 21:33 Urine Bacteria Trace /hpf (NONE) 04/05/25 21:33 Hyaline Casts 0-4 /lpf H 04/05/25 21:33 Nasal MRSA (PCR) Not detected (Negative) 04/06/25 13:30 Adenovirus (PCR) Not detected (NOT DETECT) 04/05/25 16:41 C. pneumoniae DNA (PCR) Not detected (NOT DETECT) 04/05/25 16:41 Coronavirus 229E (PCR) Not detected (NOT DETECT) 04/05/25 16:41 Human Metapneumovir PCR Not detected (NOT DETECT) 04/05/25 16:41 Influenza A (H1) PCR Not detected (NOT DETECT) 04/05/25 16:41 Influ A (H1/09) PCR Not detected (NOT DETECT) 04/05/25 16:41 Influenza A (H3) PCR Not detected (NOT DETECT) 04/05/25 16:41 Influenza Type A (PCR) Not detected (NOT DETECT) 04/05/25 16:41 Influenza Type B (PCR) Not detected (NOT DETECT) 04/05/25 16:41 M. pneumoniae (PCR) Not detected (NOT DETECT) 04/05/25 16:41 Parainfluenza 1 (PCR) Not detected (NOT DETECT) 04/05/25 16:41 Parainfluenza 2 (PCR) Not detected (NOT DETECT) 04/05/25 16:41 Parainfluenza 3 (PCR) Not detected (NOT DETECT) 04/05/25 16:41 Parainfluenza 4 (PCR) Not detected (NOT DETECT) 04/05/25 16:41 RSV Type A (PCR) Not detected (NOT DETECT) 04/05/25 16:41 RSV Type B (PCR) Not detected (NOT DETECT) 04/05/25 16:41 Entero/Rhino (PCR) Not detected (NOT DETECT) 04/05/25 16:41 SARS-CoV-2 (PCR) Not detected (NOT DETECT) 04/05/25 16:41 Vitals Last Vital Signs Temp 98.4 F 04/08/25 08:00 Pulse 87 04/08/25 08:06 Resp 18 04/08/25 08:06 BP 105/74 04/08/25 08:00 Pulse Ox 98 04/08/25 08:06 O2 Del Method Nasal Cannula 04/08/25 08:06 O2 Flow Rate 2 04/08/25 08:06 Discharge Plan Discharge Patient Disposition: Home Health Service Condition: Stable Prescriptions: New midodrine 5 mg Tablet 5 mg PO TID 30 Days Qty: 90 0RF budesonide 0.5 mg/2 mL Suspension For Nebulization 0.5 mg inhalation BID.RESPIRATORY Qty: 60 0RF levofloxacin 750 mg Tablet 750 mg PO DAILY@0600 Qty: 3 0RF metoprolol tartrate 25 mg Tablet 12.5 mg PO BID@0900,2100 30 Days Qty: 30 0RF ipratropium bromide 0.02 % Solution 0.5 mg inhalation Q8H Qty: 150 0RF pantoprazole 40 mg Tablet,Delayed Release (Dr/Ec) 40 mg PO DAILY Qty: 30 0RF prednisone 10 mg tablet See Taper PO DIRECTED Qty: 42 0RF Taper: predniSONE 60-10 60 mg Daily for 2 Days and 0 Hour 50 mg Daily for 2 Days and 0 Hour 40 mg Daily for 2 Days and 0 Hour 30 mg Daily for 2 Days and 0 Hour 20 mg Daily for 2 Days and 0 Hour 10 mg Daily for 2 Days and 0 Hour Rx Instructions: see taper instructions furosemide [Lasix] 20 mg tablet 20 mg PO QAM PRN (Reason: weight gain) Qty: 20 0RF Rx Instructions: Rhythm at rebound Continued cyclobenzaprine 10 mg tablet 10 mg PO TID PRN (Reason: muscle spasm) Qty: 30 2RF nitroglycerin 0.4 mg tablet, sublingual 0.4 mg SUBLINGUAL Q5M PRN (Reason: CAD) Qty: 20 0RF atorvastatin 40 mg tablet 40 mg PO DAILY Qty: 90 1RF citalopram 20 mg tablet 20 mg PO DAILY Qty: 90 1RF pantoprazole 20 mg tablet,delayed release (DR/EC) See Rx Instructions .ROUTE .COMPLEX Qty: 90 0RF Dose Instruction: Take 1 tablet by mouth once daily Rx Instructions: Take 1 tablet by mouth once daily Pt needs an appt for more refills Eliquis 5 mg tablet 5 mg PO BID ferrous sulfate [FeroSul] 325 mg (65 mg iron) tablet 325 mg PO DAILY tamsulosin 0.4 mg capsule 0.4 mg PO DAILY aspirin 81 mg capsule 81 mg PO DAILY Qty: 30 2RF Discontinued Jardiance 10 mg tablet 10 mg PO DAILY Discharge Order = DC NOW: Discharge Order (Routine); Ordered 04/08/25 Ordered By: Blas Danielson Other Ambulatory Orders: DME: Oxygen (Order) Location: None Selected Ordered By: Blas Danielson DME: Walker (Order) Location: None Selected Ordered By: Blas Danielson Referrals: [facility] [place] [Outside] Jim Bowling MD [Physician, Cardiology] - 05/05/25 9:15 am Hermelindo Cartwright FNP [Referring] - 04/12/25 11:00 am Discharge Diet: Cardiac Discharge Activity: Resume usual activity and Increase activity as tolerated Patient Instructions: Furosemide (By mouth), Prednisone (By mouth), COPD - Emphysema, COPD Stoplight, Opioid Safety, Patient Portal & Krystin Instructions Activity Restrictions/Additional Instructions: Please check your blood pressure daily at home and maintain a blood pressure diary. Goal blood pressure is between 100 and 140 systolics. Do not take Jardiance for now. Restrict fluid intake to less than 1500 cc, salt intake to less than 2 g daily. Advised to check his weight daily at home. Is advised that weight today would be the dry weight and if body weight increases by around 5 pounds, patient is to take an extra dose of Lasix daily till body weight comes down to weight today. If not able to come down to dry body weight in 1 week, then is to call cardiology office for further recommendations. Patient was counseled in detail to take medications regularly as prescribed. Discharge Attestations Time Spent in Discharge Care*: greater than 30 min Specific Discharge Activities: educating patient, educating and/or supporting family/caregiver, discussing with pcp/other providers, discussing with case management assistant/social workers/dc planners, documenting/other paperwork and evaluating patient/reviewing data Quality Metrics Clinical Quality Measures [ No reported AMI, CVA or VTE this stay] Coding Level of Care Code 57204 Total time (in minutes) for Discharge: 60 Diagnoses Syncope R55 Acute on chronic hypoxic respiratory failure J96.21 Chronic obstructive pulmonary disease with acute exacerbation J44.1 COPD type: COPD with acute exacerbation Acute on chronic heart failure with reduced ejection fraction (HFrEF, <= 40%) and combined systolic and diastolic dysfunction I50.43 Hypotension I95.9 Dyspnea on exertion R06.09 Afib I48.91 CAD (coronary artery disease) I25.10 Essential hypertension I10 Hypertension type: essential hypertension Hyperlipidemia E78.5 GERD (gastroesophageal reflux disease) K21.9 Mild episode of recurrent major depressive disorder F33.0 Active/Remission status: currently active Depression Type: major depressive disorder Major depression episode severity: mild Major depression recurrence: recurrent
--- NOTE | 2025-04-08 11:41 | PC.NURSE ---
Patient discharged to home. Instruction provided regarding follow up information, new medications with changes. Patient and spouse verbalized complete understanding. New medications transmitted to [facility]. Patient was delivered portable concentrator to bedside. Patient was handed medication that was locked in med room. Patient denies pain or needs. No distress observed. Patient taken by wheelchair to private vehicle. Patient has had his home walker rollator delivered prior to discharge.
== END 2025-04-08 11:45 | disposition home health service (06) | DRG 291 ==
LOC: ER 08:53 → CSU 09:03
PROVIDERS: Admitting Provider Student in an Organized Health Care Education/Training Program; Emergency Provider Family Medicine; PCP Nurse Practitioner Family; Visit Provider Student in an Organized Health Care Education/Training Program
DX: I11.0 Hypertensive heart disease with heart failure (principal); I50.43 Acute on chronic combined systolic (congestive) and diastolic (congestive) heart failure; J96.21 Acute and chronic respiratory failure with hypoxia; J18.9 Pneumonia, unspecified organism; J44.1 Chronic obstructive pulmonary disease with (acute) exacerbation; J44.0 Chronic obstructive pulmonary disease with (acute) lower respiratory infection; F33.0 Major depressive disorder, recurrent, mild; I95.9 Hypotension, unspecified; I48.91 Unspecified atrial fibrillation; I25.10 Atherosclerotic heart disease of native coronary artery without angina pectoris; E78.5 Hyperlipidemia, unspecified; K21.9 Gastro-esophageal reflux disease without esophagitis; I25.5 Ischemic cardiomyopathy; H91.90 Unspecified hearing loss, unspecified ear; R00.0 Tachycardia, unspecified; F17.210 Nicotine dependence, cigarettes, uncomplicated; I25.2 Old myocardial infarction; Z95.1 Presence of aortocoronary bypass graft; Z95.5 Presence of coronary angioplasty implant and graft; Z95.810 Presence of automatic (implantable) cardiac defibrillator; Z79.01 Long term (current) use of anticoagulants; Z79.82 Long term (current) use of aspirin
CPT/HCPCS: 36415; 36600; 71045; 71275; 80048; 80051; 80053; 80061; 81001; 82330; 82607; 82746; 82803; 82805; 83036; 83540; 83550; 83735; 83880; 84100; 84145; 84443; 84484; 85025; 85378; 87070; 87205; 87486; 87581; 87633; 93005; 93306; 93308; 94640; 94664; 94760; 96374; 97110; 97161; 99285; G0378; J1938; J2919; J7614; J7626; J7644; J9999; P9046

== ENCOUNTER 2025-04-23 12:45 | Inpatient (IN) | payer MEDICARE, SELFPAY ==
--- OUTSIDE RECORDS SUMMARY | 2024-08-03 09:38 | XMS_ITS | Encounter Summary ---
Author Organization [facility] Address [address] [place] [address] Care Team Providers Care Security Guard Supervisor Name Role Phone Willie Byrne MD Primary Care Provider [phone] Reason for Visit * Auth/Cert (Routine) Specialty Diagnoses / Procedures Referred By Contac t Referred To Contact Perioperative Diagnoses Atherosclerosis of [place] artery of both lower extremities with intermittent claudication Atherosclerosis of [place] artery of right lower extremity with intermittent claudication Procedures CHG ANGIOGRAPHY EXTREMITY UNILATERAL RS&I IN SLCTV CATHJ 3RD+ ORD SLCTV ABDL PEL/LXTR BRNCH CHG AORTOGRAPHY ABDOMINAL SERIALOGRAPHY RS&I IN REVASCULARIZATION ILIAC ARTERY ANGIOP 1ST VSL IN REVSC OPN/PRQ ILIAC ART W/STNT PLMT & ANGIOPLSTY IN REVSC OPN/PRQ FEM/POP W/ATHRC/ANGIOP SM VSL IN REVSC OPN/PRQ FEM/POP W/STNT/ATHRC/ANGIOP SM VSL IN REVSC OPN/PRQ TIB/ABNER W/ATHRC/ANGIOP SM VSL IN REVSC OPN/PRQ TIB/ABNER W/STNT/ATHR/ANGIOP SM VSL FEMORAL ANGIOGRAPHY WITH INTERVENTION RIGHT Ronal Vicente MD [address] [place] [address] Phone: tel: fax: [facility] Operating Room [address] [place] [address] Phone: tel: fax: Referral ID Status Reason Start Date Expiration Date Visits Re quested Visits Authorized [id number] 1 1 Encounter Details Date Type Department Care Team (Latest Contact Info) Description 08/03/2024 8:38 AM ADULT NURSE PRACTITIONER Hospital Encounter [facility] Operating Room [address] [place] [address] Ronal Vicente MD [address] [place] [address] Peripheral vascular disease, unspecified Social [...] on file Legal Sex Male 11:54 PM ADULT NURSE PRACTITIONER Gender Identity Not on file Sexual Orientation [...] flow in the distal PDA with good iudo-qy-cmwmm collaterals. Hemodynamics - LVEDP was 9 mmHg. [...] 04:36 AM PHBLOODPOC 7.43 08/06/2024 12:17 PM AZN4XMU 32 (L) 08/06/2024 12:17 PM PO2POC 76 (L) 08/06/2024 12:17 PM MCF8XUY 21 (L) 08/06/2024 12:17 PM H6SUFHYR 43 08/08/2024 04:36 AM FGU8QKI 22 (L) 08/06/2024 12:17 PM BEPOC -3 (L) 08/06/2024 12:17 PM LACTATE 1.9 08/15/2024 12:26 PM PATIENTTEMP 37.0 08/04/2024 02:50 PM PHTEMPCORR 7.43 08/06/2024 12:17 PM HAQ7DNQKLV 32 (L) 08/06/2024 12:17 PM [id number] 76 (L) 08/06/2024 12:17 PM Lactic acid: [...] per bedside nursing. Family communication: Updated EM3 T NURSE PRACTITIONER documented in this encounter Plan of Treatment Upcoming Encounters Date Type Department Care Team (Late st Contact Info) Description 05/07/2025 8:15 AM ADULT NURSE PRACTITIONER Appointment [facility] MRI [address] [place] [address] Catherine Paul NP [address] [facility] [address], [address] [place] [phone] 05/28/2025 9:20 AM ADULT NURSE PRACTITIONER Office Visit [facility] [address] [place] [address] [phone] Cathernie Paul NP [address], [address] [place] [phone] 08/11/2025 2:00 PM ADULT NURSE PRACTITIONER Office Visit [facility] [address] [place] [address] [phone] Juarez Clements MD [address] [place] [phone] Geovanna Scherer NP [address], [address] [place] [phone] documented as of this encounter Visit Diagnoses Not on filedocumented in this encounter Care Teams Security Guard Supervisor Relationship Specialty Start Date End Date Willie Byrne MD [address] [place] [phone] PCP - General Family Practice 02/18/23 03/07/25 documented as of this encounter
--- OUTSIDE RECORDS SUMMARY | 2024-08-03 09:38 | XMS_ITS | Encounter Summary ---
Author Organization [facility] Address [address] [place] [address] Care Team Providers Care Shipyard Painter Helper Name Role Phone Willie Byrne MD Primary Care Provider [phone] Reason for Visit * Auth/Cert (Routine) Specialty Diagnoses / Procedures Referred By Contac t Referred To Contact Perioperative Diagnoses Atherosclerosis of [place] artery of both lower extremities with intermittent claudication Atherosclerosis of [place] artery of right lower extremity with intermittent claudication Procedures CHG ANGIOGRAPHY EXTREMITY UNILATERAL RS&I AR SLCTV CATHJ 3RD+ ORD SLCTV ABDL PEL/LXTR BRNCH CHG AORTOGRAPHY ABDOMINAL SERIALOGRAPHY RS&I AR REVASCULARIZATION ILIAC ARTERY ANGIOP 1ST VSL AR REVSC OPN/PRQ ILIAC ART W/STNT PLMT & ANGIOPLSTY AR REVSC OPN/PRQ FEM/POP W/ATHRC/ANGIOP SM VSL AR REVSC OPN/PRQ FEM/POP W/STNT/ATHRC/ANGIOP SM VSL AR REVSC OPN/PRQ TIB/ABNER W/ATHRC/ANGIOP SM VSL AR REVSC OPN/PRQ TIB/ABNER W/STNT/ATHR/ANGIOP SM VSL FEMORAL ANGIOGRAPHY WITH INTERVENTION RIGHT Ronal Vicente MD [address] [place] [address] Phone: tel: fax: [facility] Operating Room [address] [place] [address] Phone: tel: fax: Referral ID Status Reason Start Date Expiration Date Visits Re quested Visits Authorized [id number] 1 1 Encounter Details Date Type Department Care Team (Latest Contact Info) Description 08/03/2024 8:38 AM DISASTER RECOVERY COORDINATOR Hospital Encounter [facility] Operating Room [address] [place] [address] Ronal Vicente MD [address] [place] [address] Peripheral vascular disease, unspecified Social [...] on file Legal Sex Male 11:54 PM DISASTER RECOVERY COORDINATOR Gender Identity Not on file Sexual Orientation [...] flow in the distal PDA with good kbtc-wz-tahbe collaterals. Hemodynamics - LVEDP was 9 mmHg. [...] 04:36 AM PHBLOODPOC 7.43 08/06/2024 12:17 PM BYM6VUD 32 (L) 08/06/2024 12:17 PM PO2POC 76 (L) 08/06/2024 12:17 PM VRD0PLC 21 (L) 08/06/2024 12:17 PM N0XWGDMN 43 08/08/2024 04:36 AM DIW4MTI 22 (L) 08/06/2024 12:17 PM BEPOC -3 (L) 08/06/2024 12:17 PM LACTATE 1.9 08/15/2024 12:26 PM PATIENTTEMP 37.0 08/04/2024 02:50 PM PHTEMPCORR 7.43 08/06/2024 12:17 PM YIG9XKZBJQ 32 (L) 08/06/2024 12:17 PM BP8COFRCXA 76 (L) 08/06/2024 12:17 PM Lactic acid: [...] per bedside nursing. Family communication: Updated EM3 STER RECOVERY COORDINATOR documented in this encounter Plan of Treatment Upcoming Encounters Date Type Department Care Team (Late st Contact Info) Description 05/07/2025 8:15 AM DISASTER RECOVERY COORDINATOR Appointment [facility] MRI [address] [place] [address] Catherine Paul NP [address] [facility] [address], [address] [place] [phone] 05/28/2025 9:20 AM DISASTER RECOVERY COORDINATOR Office Visit [facility] [address] [place] [phone] Catherine Paul NP [address], [address] [place] [phone] 08/11/2025 2:00 PM DISASTER RECOVERY COORDINATOR Office Visit [facility] [address] [place] [place] [phone] Juarez Clements MD [address] [place] [place] [phone] Geovanna Scherer NP [address] [place] [address], [address] [place] [phone] documented as of this encounter Visit Diagnoses Not on filedocumented in this encounter Care Teams Shipyard Painter Helper Relationship Specialty Start Date End Date Willie Byrne MD [address] [place] [phone] PCP - General Family Practice 02/18/23 03/07/25 documented as of this encounter
--- OUTSIDE RECORDS SUMMARY | 2024-08-03 09:38 | XMS_ITS | Encounter Summary ---
Author Organization [facility] Address [address] [place] [address] Care Team Providers Care Manager Marketing Communications Name Role Phone Willie Byrne MD Primary Care Provider [phone] Reason for Visit * Auth/Cert (Routine) Specialty Diagnoses / Procedures Referred By Contac t Referred To Contact Perioperative Diagnoses Atherosclerosis of [place] artery of both lower extremities with intermittent claudication Atherosclerosis of [place] artery of right lower extremity with intermittent claudication Procedures CHG ANGIOGRAPHY EXTREMITY UNILATERAL RS&I CT SLCTV CATHJ 3RD+ ORD SLCTV ABDL PEL/LXTR BRNCH CHG AORTOGRAPHY ABDOMINAL SERIALOGRAPHY RS&I CT REVASCULARIZATION ILIAC ARTERY ANGIOP 1ST VSL CT REVSC OPN/PRQ ILIAC ART W/STNT PLMT & ANGIOPLSTY CT REVSC OPN/PRQ FEM/POP W/ATHRC/ANGIOP SM VSL CT REVSC OPN/PRQ FEM/POP W/STNT/ATHRC/ANGIOP SM VSL CT REVSC OPN/PRQ TIB/ABNER W/ATHRC/ANGIOP SM VSL CT REVSC OPN/PRQ TIB/ABNER W/STNT/ATHR/ANGIOP SM VSL FEMORAL ANGIOGRAPHY WITH INTERVENTION RIGHT Ronal Vicente MD [address] [place] [address] Phone: tel: fax: [facility] Operating Room [address] [place] [address] Phone: tel: fax: Referral ID Status Reason Start Date Expiration Date Visits Re quested Visits Authorized [id number] 1 1 Encounter Details Date Type Department Care Team (Latest Contact Info) Description 08/03/2024 8:38 AM BASE FILLER OPERATOR Hospital Encounter [facility] Operating Room [address] [place] [address] Ronal Vicente MD [address] [place] [address] Peripheral vascular disease, unspecified Social [...] on file Legal Sex Male 11:54 PM BASE FILLER OPERATOR Gender Identity Not on file Sexual Orientation [...] flow in the distal PDA with good wath-va-zajzf collaterals. Hemodynamics - LVEDP was 9 mmHg. [...] 04:36 AM PHBLOODPOC 7.43 08/06/2024 12:17 PM PHJ3CNP 32 (L) 08/06/2024 12:17 PM PO2POC 76 (L) 08/06/2024 12:17 PM RHF6TKB 21 (L) 08/06/2024 12:17 PM H7TXAUKC 43 08/08/2024 04:36 AM AKT2LCN 22 (L) 08/06/2024 12:17 PM BEPOC -3 (L) 08/06/2024 12:17 PM LACTATE 1.9 08/15/2024 12:26 PM PATIENTTEMP 37.0 08/04/2024 02:50 PM PHTEMPCORR 7.43 08/06/2024 12:17 PM QES9QFAJEZ 32 (L) 08/06/2024 12:17 PM HB8UIGIAMT 76 (L) 08/06/2024 12:17 PM Lactic acid: [...] per bedside nursing. Family communication: Updated EM3 FILLER OPERATOR documented in this encounter Plan of Treatment Upcoming Encounters Date Type Department Care Team (Late st Contact Info) Description 05/07/2025 8:15 AM BASE FILLER OPERATOR Appointment [facility] MRI [address] [place] [address] Catherine Paul NP [address] [facility] [address], [address] [place] [phone] 05/28/2025 9:20 AM BASE FILLER OPERATOR Office Visit [facility] [address] [place] [phone] Catherine Paul NP [address], [address] [place] [phone] 08/11/2025 2:00 PM BASE FILLER OPERATOR Office Visit [facility] [address] [place] [phone] Juarez Clements MD [address] [place] [phone] Geovanna Scherer NP [address], [address] [place] [phone] documented as of this encounter Visit Diagnoses Not on filedocumented in this encounter Care Teams Manager Marketing Communications Relationship Specialty Start Date End Date Willie Byrne MD [address] [place] [phone] PCP - General Family Practice 02/18/23 03/07/25 documented as of this encounter
[2025-04-23] VITALS (9 sets, daily range): BP systolic 86–106; BP diastolic 62–85; PULSE 90–107; RESP 16–26; TEMP 36.3–36.8; O2SAT 93–100; BMI 25.1; BMI 23.9
--- NOTE | 2025-04-23 12:48 | XR_ITS ---
WS: [id number] Exam: XR chest 1V portable [id number] Date/Time of Exam: 04/23/2025 12:55 PM Reason For Exam: chest pain Comparison 04/07/2025. Resolved left lower lobe pneumonia. Lungs are fully expanded and clear. Heart size top limits normal. The mediastinum is normal in contour. Signs of median sternotomy and cardiac surgery. Permanent pacer over the LEFT chest. Unremarkable bony structures. XR/XR chest 1V portable [id number] IMPRESSION: 1. No acute cardiopulmonary process.
--- OUTSIDE RECORDS SUMMARY | 2025-04-23 12:51 | XMS_ITS | Clinical Summary ---
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 90 Tablet 02/05/20 23 Active spironolactone (ALDACTONE) 25 mg tablet Take [...] day. 45 Tablet 3 03/05/20 25 Active atorvastatin (LIPITOR) 40 mg tablet Take 1 tablet by mouth once daily 30 Tablet 04/16/20 25 Active atorvastatin (LIPITOR) 40 mg tablet Take 1 Tablet (40 mg) by mouth daily. 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, bi legs 02/04/2023 Tobacco use 11/14/2022 Resolved Problems Problem Noted Date Diagnosed Date Resolved Date Acute respiratory insufficie ncy, postoperative 08/04/2024 08/11/2024 Acute coronary syndrome 07/24/202401/22 Abnormal stress test 07/24/2024 025 Encounters Date Type Department Care Team Description 04/16/[address] [phone] Kiya York, LAWYER CRIMINAL 03/30/2025 External Device Data STL ABSTRACTION Provider, Abstract 03/10/2025 1:30 PM CDT Nurse Only [place] [address] [facility] [address] [place] [phone] Juarez Clements MD Sick sinus syndrome (CMS/HCC) (Primary Dx); Atrial fibrillation, unspecified type (CMS/HCC); Ischemic dilated cardiomyopathy (CMS/HCC); Automatic implantable cardioverter-defibril lator in situ 03/08/2025 Telephone [facility] [address] [address] Willie Byrne MD Needs Appointment 03/05/2025 10:15 AM CDT Office Visit [facility] [address] [facility] [address] [place] [phone] Hung Lorenzo MD 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 (Primary Dx); S/P CABG (coronary artery bypass graft) 03/02/2025 External Device Data STL ABSTRACTION Provider, Abstract 03/02/2025 External Device Data STL ABSTRACTION Provider, Abstract 03/02/2025 External Device Data STL ABSTRACTION Provider, Abstract 03/01/2025 Refill [facility] [address] [address] Raiza Nesbitt FNP 03/01/2025 Telephone [facility] [address] [address] Willie Byrne MD Ed Follow-up 02/27/2025 5:02 PM CDT - 02/27/2025 7:45 PM CDT Emergency [facility] Emergency Department [address] [place] [address] Naveen Morin MD Shortness of breath (Primary Dx); COPD with exacerbation ([facility]) Discharge Disposition: Home or Self Care 02/27/2025 Travel 02/24/2025 External Device Data STL ABSTRACTION Provider, Abstract 02/11/2025 1:45 PM CDT Anesthesia Event [facility] Cardiac Smoking Tobacco Packing Machine Hand [facility] [place] [address] Yaniv Bojorquez II, 02/11/2025 12:00 PM CDT - 02/11/2025 1:09 PM CDT Surgery [facility] Cardiac Smoking Tobacco Packing Machine Hand [facility] [place] [address] Juarez Clements MD ICD Insertion 02/11/2025 10:09 AM CDT - 02/11/2025 5:25 PM CDT Hospital Encounter [facility] Prep Recovery [address] [place] [address] Juarez Clements MD NYHA class 3 acute on chronic systolic heart failure Discharge Disposition: Home or Self Care 02/09/2025 External Device Data STL ABSTRACTION Provider, Abstract 02/03/2025 11:00 AM CDT Office Visit [place] [address] [place] [phone] Juarez Clements MD Ischemic dilated cardiomyopathy (CMS/HCC) (Primary Dx); Essential hypertension; Mixed hyperlipidemia; PAF (paroxysmal atrial fibrillation) (CMS/HCC); S/P CABG x 3; Sinus bradycardia; Status post coronary artery bypass graft; Status post ligation of left atrial appendage; ASHD (arteriosclerotic heart disease); Chronic anticoagulation; Chronic combined systolic and diastolic CHF, NYHA class 2 ([facility]/HCC) 02/03/2025 Telephone [place] [address] [place] [phone] Hung Lorenzo MD Follow Up 02/03/2025 Prep for Surgery [place] [address] [place] [phone] Juarez Clements MD Ischemic dilated cardiomyopathy (CMS/HCC) (Primary Dx); NYHA class 3 acute on chronic systolic heart failure (CMS/HCC) 02/03/2025 Telephone [place] [address] [place] [phone] Juarez Clements MD Procedure 02/02/2025 Telephone [place] [address] [place] [phone] Catherine Paul NP Needs Form Or Letter Filled Out; Information (Will have Catherine DE LA PAZ sign/Zoll forms. 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 Gender Identity Not on file Sexual Orientation [...] st Contact Info) Description 05/07/2025 8:15 AM BOSS MINER Appointment [facility] MRI [address] [place] [address] Catherine Paul, CLASSIFICATION COUNSELOR [address] [facility] [address] [place] [address] 05/28/2025 9:20 AM BOSS MINER Office Visit [facility] [address] [facility] [address] [place] [phone] Catherine Paul, JESUS [address] [facility] [address] [place] [address] 08/11/2025 2:00 PM BOSS MINER Office Visit [facility] [address] [place] [address] Juarez Clements MD [address] [facility] [address] [place] [phone] Geovanna Scherer NP [address] [facility] [address] [place] [address] Health Maintenance Due Date Last Done Comments DTAP/TDAP/TD VACCINES (1 - Tdap) 1971 PNEUMOCOCCAL VACCINE 50+ YEARS (1 of 2 - PCV) 08/17/18 72 COLORECTAL SCREENING 1997 FIT-DNA Q 3 years 1997 Flex Sig/CT Colonography Q 5 years 1997 RSV VACCINE (60+ or ) (1 - Risk 50-74 years 1-dose series) 2002 ZOSTER VACCINE (1 of 2) 2002 Abdominal Aortic Aneurysm (AAA) Screening 2017 Colorectal Cancer Screening 11/14/2023 FIT/FOBT Q 1 year 11/14/2023 11/13/2022 Medicare Advantage (ID) Prev entative Visit/Annual Wellness Visit 06/24/2024 INFLUENZA VACCINE (#1) 2025 04/06/2024 Medical Devices Implanted Type Area Marketing Program Manager Device Identifier Shelf Expiration Date Model / Serial / Lot Atriclip Flex-V Claudia Exclusion 45mm Achv45 - [id number] Implanted:Qty : 1 on 08/04/2024 by Jesus Manuel Newton MD at [facility] Cardiovascular Device N/A: Chest [employer] INC [id number] 05/24/2027 [id number] / / [id number] Clip Ligating Horizon Red 966958 - Csc - [id number] Implanted:Qty : 1 on 08/04/2024 by Jesus Manuel Newton MD at [facility] Clip N/A: Chest TELEFLEX INC [id number] 04/23/2029 / / [id number] Clip Ligating Horizon Red 474371 - Csc - [id number] Implanted:Qty : 1 on 08/04/2024 by Jesus Manuel Newton MD at [facility] Clip N/A: Chest TELEFLEX INC [id number] 04/23/2029 / / [id number] Clip Ligating Horizon Red 324511 - Csc - [id number] Implanted:Qty : 1 on 08/04/2024 by Jesus Manuel Newton MD at [facility] Clip N/A: Chest TELEFLEX INC [id number] 04/23/2029 / / [id number] Clip Ligating Horizon Lrg Ti 10.07x12.38mm [id number] - [facility] - [id number] Implanted:Qty : 1 on 08/06/2024 by Jesus Manuel Newton MD at [facility] Clip N/A: Neck TELEFLEX- WECK CLOSURE SYS 08/25/2028600078 / / [id number] Clip Ligating Horizon Lrg Ti 10.07x12.38mm 738746 - Csc - [id number] Implanted:Qty : 1 on 08/06/2024 by Jesus Manuel Newton MD at [facility] Clip N/A: Neck TELEFLEX- WECK CLOSURE SYS 08/25/2028712696 / / [id number] Dev Closure Angioseal 6fr Vip 857702 - [id number] Implanted:Qty : 1 on 02/04/2023 at [facility] Closure Device Left: Groin [facility] 11/22/2023 [id number] / / [id number] Defib Icd Woronoco Xt Mri [id number] Df4 Dual Chmbr Surescan Rzuv5x9 - [id number] Implanted:Qty : 1 on 02/11/2025 by Juarez Clements MD at [facility] Defibrillator Left: Chest Wall MED[employer]- CARD RHYTHM MGMT [id number] 05/21/2026 [id number] / [id number] / Graft Vasc Hemashield Gold Knit [id number] - [id number] Implanted:Qty : 1 on 08/04/2024 by Jesus Manuel Newton MD at [facility] Graft N/A: Chest [employer] INC [id number] 05/23/2028 [id number] / [id number] / [id number] Orthostat 2.0gm Os-201 - [id number] Implanted:Qty : 1 on 08/04/2024 by Jesus Manuel Newton MD at [facility] Hemostatic N/A: Chest ORTHOCON, INC [id number] 03/23/2027 OS- Orthostat 2.0gm Os-201 - [id number] Implanted:Qty : 1 on 08/04/2024 by Jesus Manuel Newton MD at [facility] Hemostatic N/A: Chest ORTHOCON, INC [id number] 03/23/2027 OS- Lead Pacing Capsure Fix Novus 52cm [id number] - [facility] - [id number] Implanted:Qty : 1 on 02/11/2025 by Juarez Clements MD at [facility] Lead Left: Chest Wall [employer]- CRM - BULK BUY [id number] 11/06/2026 [id number] / [id number] / Lead Sprint Quattro Secure 62cm [id number] - [facility] - [id number] Implanted:Qty : 1 on 02/11/2025 by Juarez Clements MD at [facility] Lead Left: Chest Wall [employer]- CRM - BULK BUY [id number] 12/03/2026 [id number] / [id number] 15V / Adh Bioglue 10ml Ob1036-1-Pc - [id number] Implanted:Qty : 1 on 08/04/2024 by Jesus Manuel Newton MD at [facility] Sealant N/A: Chest ARTIVION (FKA CRYOLIFE) [id number] 09/20/2025 SN6175- 5-US / / [id number] Stent Lifestent 5fr [id number] 135cm [id number] - [id number] Implanted:Qty : 1 on 02/04/2023 at [facility] Stent Right: Leg BARD CAROLYNN VASC 02/02/2025 [id number] 3CS / / [id number] Plt Bone H Concave 6h Nst Lf Implanted:Qty : 1 on 08/04/2024 by Jesus Manuel Newton MD at [facility] N/A: Chest MIREYA BIOMET 115.602 .06 / / Plt Bone H Concave 6h Nst Lf Implanted:Qty : 1 on 08/04/2024 by Jesus Manuel Newton MD at [facility] N/A: Chest MIREYA BIOMET 115.602 .06 / / Sternalock Ez 16 Mm Screw Implanted:Qty : 1 on 08/04/2024 by Jesus Manuel Newton MD at [facility] N/A: Chest ZIMMERB IOMET-1 00.035. 16 / / Sternalock Ez 16 Mm Screw Implanted:Qty : 1 on 08/04/2024 by Jesus Manuel Newton MD at [facility] N/A: Chest ZIMMERB IOMET-1 00.035. 16 / / Sternalock Ez 16 Mm Screw Implanted:Qty : 1 on 08/04/2024 by Jesus Manuel Newton MD at [facility] N/A: Chest ZIMMERB IOMET-1 00.035. 16 / / Sternalock Ez 16 Mm Screw Implanted:Qty : 1 on 08/04/2024 by Jesus Manuel Newton MD at [facility] N/A: Chest ZIMMERB IOMET-1 00.035. 16 / / Sternalock Ez 16 Mm Screw Implanted:Qty : 1 on 08/04/2024 by Jesus Manuel Newton MD at [facility] N/A: Chest ZIMMERB IOMET-1 00.035. 16 / / Sternalock Ez 16 Mm Screw Implanted:Qty : 1 on 08/04/2024 by Jesus Manuel Newton MD at [facility] N/A: Chest ZIMMERB IOMET-1 00.035. 16 / / Sternalock Ez 16 Mm Screw Implanted:Qty : 1 on 08/04/2024 by Jesus Manuel Newton MD at [facility] N/A: Chest ZIMMERB IOMET-1 00.035. 16 / / Sternalock Ez 16 Mm Screw Implanted:Qty : 1 on 08/04/2024 by Jesus Manuel Newton MD at [facility] N/A: Chest ZIMMERB IOMET-1 00.035. 16 / / Sternalock Ez 16 Mm Screw Implanted:Qty : 1 on 08/04/2024 by Jesus Manuel Newton MD at [facility] N/A: Chest ZIMMERB IOMET-1 00.035. 16 / / Sternalock Ez 16 Mm Screw Implanted:Qty : 1 on 08/04/2024 by Jesus Manuel Newton MD at [facility] N/A: Chest ZIMMERB IOMET-1 00.035. 16 / / Sternalock Ez 16 Mm Screw Implanted:Qty : 1 on 08/04/2024 by Jesus Manuel Newton MD at [facility] N/A: Chest ZIMMERB IOMET-1 00.035. 16 / / Screw Bone 18mm Lck Nst Lf Implanted:Qty : 1 on 08/04/2024 by Jesus Manuel Newton MD at [facility] N/A: Chest MIREYA BIOMET 100.035 .18 / / Screw Bone 18mm Lck Nst Lf Implanted:Qty : 1 on 08/04/2024 by Jesus Manuel Newton MD at [facility] N/A: Chest MIREYA BIOMET 100.035 .18 / / Screw Bone 18mm Lck Nst Lf Implanted:Qty : 1 on 08/04/2024 by Jesus Manuel Newton MD at [facility] N/A: Chest MIREYA BIOMET 100.035 .18 / / Screw Bone 18mm Lck Nst Lf Implanted:Qty : 1 on 08/04/2024 by Jesus Manuel Newton MD at [facility] N/A: Chest MIREYA BIOMET 100.035 .18 / / Screw Bone 18mm Lck Nst Lf Implanted:Qty : 1 on 08/04/2024 by Jesus Manuel Newton MD at [facility] N/A: Chest MIREYA BIOMET 100.035 .18 / / Screw Bone 18mm Lck Nst Lf Implanted:Qty : 1 on 08/04/2024 by Jesus Manuel Newton MD at [facility] N/A: Chest MIREYA BIOMET 100.035 .18 / / Screw Bone 16mm Lck Nst Lf Implanted:Qty : 1 on 08/04/2024 by Jesus Manuel Newton MD at [facility] N/A: Chest MIREYA BIOMET 100.035 .16 / / Procedures Procedure Name Priority Date/Time Associated Diagnosis Comments WV PROGRAM EVAL IMPLANT DEVICE,CARDVERT/DEF IB,2 LEAD WITHIN GLOBAL Routine 03/10/2025 2:03 PM [...] WITH DIFFERENTIAL Routine 02/11/2025 10:57 AM CDT WV ECG ROUTINE ECG W/LEAST 12 LDS W/I&R Routine 02/03/2025 11:02 AM CDT Sinus bradycardia 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 [facility] Patient verbalized understanding of all instructions. F/U [...] incision care, arm restrictions and recommendedfollow up. [facility] f/u reviewed. [facility].Patient verbalized understanding of all instructions. F/U with EP officein 3 months. See attached report for details. Juarez Clements MD CARDIAC SERVICES ORDERA BLES Final Result [facility] [address] [place] [address] * (ABNORMAL) TROPONIN 2 HR, 5TH GEN (02/27/2025 5:22 PM CDT) TROPONIN T, 2 HR 5TH GEN 74(H) <=15 ng/L 02/27/2025 6:23 PM CDT [facility] 2HR TROPONIN T -5 See Interp. 02/27/2025 6:23 PM CDT [facility] Blood Venipuncture / Unknown 02/27/2025 5:22 PM CDT 02/27/2025 5:53 PM CDT Narrative [facility] - 02/27/2025 6:23 PM CDT Troponin elevated. Delta indeterminate. Delay in collection of timed specimen beyond recommended collection interval. Results must be interpreted in clinical context. us Shilpa Vaz APRN CHEMISTRY ORDERABLES Lady l Result Performing Organization Address [facility]/ZIP Co de Phone Number [facility] CLIA # [id number] [address] [address] * (ABNORMAL) BRAIN NATRIURETIC PEPTIDE, BNP OR PROBNP (02/27/2025 5:22 PM CDT) PROBNP, N TERMINAL 6,837(H) 0 - 125 pg/mL 02/27/2025 6:33 PM CDT [facility] Comment: INTERPRETIVE COMMENT based on diagnosis: Diagnostic [...] ORDERABLES Final Re sult Performing Organization Address [facility]/ZIP Co de Phone Number [facility] CLIA # [id number] [address] [address] [place] [address] * XR CHEST PA OR AP 1 [...] BASELINE, 5TH GEN (02/27/2025 2:57 PM CDT) TROPONIN T, BASELINE 5TH GEN 79(H) <=15 ng/L 02/27/2025 3:33 PM CDT [facility] Blood Venipuncture / Unknown 02/27/2025 2:57 PM CDT 02/27/2025 3:03 PM CDT Narrative [facility] - 02/27/2025 3:33 PM CDT Troponin elevated. Shilpa Yaniv Татьяна TOOL TROUBLE SHOOTER CHEMISTRY ORDERABLES Lady l Result [facility] CLIA # [id number] [address] [address] [place] [address] * (ABNORMAL) CBC WITH DIFFERENTIAL (02/27/2025 2:57 PM CDT) Only the most recent of2 resultswithin the time period is included. [facility] WBC 7.1 4.8 - 10.8 K/uL 02/27/2025 3:06 PM CDT [facility] RBC 4.51(L) 4.60 - 6.20 M/uL 02/27/2025 3:06 PM CDT [facility] HEMOGLOBIN 12.6(L) 14.0 - 18.0 g/dL 02/27/2025 3:06 PM CDT [facility] HEMATOCRIT 39.7(L) 41.0 - 53.0 % 02/27/2025 3:06 PM CDT [facility] MCV 88.0 84.0 - 103.0 fL 02/27/2025 3:06 PM CDT [facility] MCH 27.9 27.0 - 34.0 pg 02/27/2025 3:06 PM CDT [facility] MCHC 31.7 30.0 - 35.0 g/dL 02/27/2025 3:06 PM CDT [facility] PLATELETS 181 140 - 440 K/uL 02/27[facility]2025 3:[facility] MPV 10.6 8.9 - 12.8 fL 02/27/2025 3:06 PM [facility] RDW 15.6(H) 11.0 - 14.5 % 02/27/2025 3:06 PM [facility] RDW-STDEV 49.0 37.0 - 54.0 fL 02/27/2025 3:06 PM [facility] NEUTROPHILS 73 42 - 75 % 02/27/2025 3:06 PM CDT [facility] LYMPHOCYTES 16(L) 24 - 44 % 02/27/2025 3:06 PM CDT [facility] MONOCYTES 8 2 - 10 % 02/27/2025 3:06 PM CDT [facility] EOSINOPHILS 2 0 - 7 % 02/27/2025 3:06 PM CDT [facility] BASOPHILS 1 0 - 1 % 02/27/2025 3:06 PM CDT [facility] IMMATURE GRANULOCYTES 0 0 - 2 % 02/27/2025 3:06 PM CDT [facility] NEUTROPHIL ABSOLUTE 5.18 2.00 - 8.00 K/uL 02/27/2025 3:06 PM CDT [facility] LYMPHOCYTE ABSOLUTE 1.11(L) 1.20 - 4.00 K/uL 02/27/2025 3:06 PM CDT [facility] MONOCYTE ABSOLUTE 0.57 0.10 - 0.60 K/uL 02/27/2025 3:06 PM CDT [facility] EOSINOPHIL ABSOLUTE 0.13 0.00 - 0.70 K/uL 02/27/2025 3:06 PM CDT [facility] BASOPHILS ABSOLUTE 0.04 0.00 - 0.20 K/uL 02/27/2025 3:06 PM CDT [facility] IMMATURE GRANULOCYTES ABSOLUTE 0.03 0.00 - 0.10 K/uL 02/27/2025 3:06 PM CDT [facility] SMEAR REVIEWED: NA - Not Applicable 02/27/2025 3:06 PM CDT [facility] Blood Venipuncture / Unknown 02/27/2025 2:57 PM CDT 02/27/2025 3:03 PM CDT us Shilpa Vaz TOOL TROUBLE SHOOTER HEMATOLOGY ORDERABLES Fin al Result [facility] CLIA # [id number] [facility] [address] [place] [address] * MAGNESIUM LEVEL (02/27/2025 2:57 PM CDT) MAGNESIUM 2.3 1.6 - 2.4 mg/dL 02/27/2025 3:43 PM CDT [facility] Blood Venipuncture / Unknown 02/27/2025 2:57 PM CDT 02/27/2025 3:03 PM CDT Shilpa Vaz APRN CHEMISTRY ORDERABLES Lady l Result [facility] CLIA # [id number] [address] [place] [address] * (ABNORMAL) COMPREHENSIVE METABOLIC PANEL (02/27/2025 2:57 PM CDT) Pathologist [facility] SODIUM 138 136 - 145 mmol/L 02/27/2025 3:43 PM CDT [facility] POTASSIUM 4.6 3.5 - 5.1 mmol/L 02/27/2025 3:43 PM CDT [facility] CHLORIDE 102 98 - 107 mmol/L 02/27/2025 3:43 PM CDT [facility] CO2 25 22 - 29 mmol/L 02/27/2025 3:43 PM CDT [facility] CALCIUM 9.4 8.8 - 10.2 mg/dL 02/27/2025 3:43 PM CDT [facility] BUN 14 8 - 23 mg/dL 02/27/2025 3:43 PM CDT [facility] CREATININE 0.85 0.67 - 1.17 mg/dL 02/27/2025 3:43 PM CDT [facility] Comment:The GFR result is no t clinically significant on patients <18 or >70 years of age. GLUCOSE 93 74 - 99 mg/dL 02/27/2025 3:43 PM CDT [facility] TOTAL PROTEIN 6.7 6.4 - 8.3 g/dL 02/27/2025 3:43 PM CDT [facility] ALBUMIN 3.8 3.5 - 5.2 g/dL 02/27/2025 3:43 PM CDT [facility] BILIRUBIN TOTAL 0.9 0.0 - 1.0 mg/dL 02/27/2025 3:43 PM CDT [facility] ALKALINE PHOSPHATASE 146(H) 40 - 129 U/L 02/27/2025 3:43 PM CDT [facility] AST 27 10 - 50 U/L 02/27/2025 3:43 PM CDT [facility] ALT 19 <=50 U/L 02/27/2025 3:43 PM CDT [facility] GFR >60 mL/min/1.7 3 sq meter 02/27/2025 3:43 PM CDT [facility] Comment:eGFR calculated with 2020 CKD-EPI equation. Vegetarian diet, extremely high or low muscle mass, and may affect results. Cystatin C with Glomerular Filtration Rate is a suitable alternative for these patients. ANION GAP 11 9 - 20 mmol/L 02/27/2025 3:43 PM CDT [facility] Blood Venipuncture / Unknown 02/27/2025 2:57 PM CDT 02/27/2025 3:03 PM CDT Shilpa Vaz TOOL TROUBLE SHOOTER CHEMISTRY ORDERABLES Lady l Result [facility] CLIA # [id number] [address] [address] * EKG 12-LEAD (02/27/2025 2:44 PM CDT) Only the most recent of3 resultswithin the time period is included. 02/27/2025 2:44 PM CDT Narrative INTERFACE SYSTEM - 02/28/2025 1:12 PM CDT [address] [address] Test Date: 2025-02-27 Pat Name: SHILPA DAHL Department: 11 Room: Gender: Male Payroll Officer: [email or web address] : 1950 Requested By: Order Number: [id number] Reading : Joseline Butts Measurements Intervals [place] Rate: 102 P: 74 WV: 172 QRS: 100 QRSD: 96 T: 240 QT: 372 QTc: 484 Interpretive Statements Sinus tachycardia Septal infarct, age undetermined Lateral infarct, age undetermined ST & T wave abnormality, consider inferior ischemia Abnormal ECG Electronically Signed On 02-28-2025 13:12:48 CDT by Joseline Butts Procedure Note Provider, Historical - 02/28/[address] [address] Test Date: 2025-02-27 Pat Name: SHILPA DAHL Department: 11 Room: Gender: Male Payroll Officer: [email or web address] : 1950 Requested By: Order Number: [id number] Dandy COTTO: Joseline Butts Measurements Intervals [place] Rate: 102 P: 74 WV: 172 QRS: 100 QRSD: 96 T: 240 QT: 372 QTc: 484 Interpretive Statements Sinus tachycardia Septal infarct, age undetermined Lateral infarct, age undetermined ST & T wave abnormality, consider inferior ischemia Abnormal ECG Electronically Signed On 02-28-2025 13:12:48 CDT by Joseline Butts us Naveen Morin MD ECG ORDERABLES Final Result Performing Organization Address City/State/[facility] Co de Phone Number INTERFACE SYSTEM Refer [...] W ANES (02/11/2025 2:32 PM CDT) Narrative [facility] - 02/11/2025 2:41 PM CDT Summary: 1. Successful Dual Chamber ICD Implant (MRI Compatible) Estimated Blood Loss There was minimal blood loss during procedure. Procedure Details [facility] Clinical Cardiac Electrophysiology Device Report Procedures: 1. Medtronic Dual Chamber ICD Implant 2. Contrast Venography 3. Left Subclavian Vein Access 4. Device Interrogation 5. Conscious Sedation (performed by Anesthesia) 6. Fluoroscopy with Interpretation Operators: 1. Juarez Clements MD, [facility], [facility] - Clinical Cardiac Electrophysiology Indication: 74 y/o [...] = < 30 cc. Device Model: Medtronic [place] XT DR MRI SureMomukund [id number] ATRIAL Lead: EDSON [id number] Pacing Threshold: 0.5V @ 0.4ms Impedance: 551 ohms P wave: 2.0 mV RIGHT VENTRICULAR Lead: EDSON [id number] Pacing Threshold: 0.5V @ 0.4ms Impedance: 570 ohms R wave: 9.5 mV Complications: None Summary: 1. Successful Dual Chamber ICD Implant (MRI Compatible) Juarez Clements MD, [facility], [facility] Clinical Cardiac Electrophysiology Composition Teacher of Clinical Medicine [facility] Procedural Indications 74 y/o WM with h/o IDCM, CAD, NYHA Class III HF, PAF, SSS, and EF < 35% despite OMT > 3 months presents for a dual chamber ICD for primary prevention and sick sinus syndrome. Juarez Clements MD CUP EP ORDERABLES Final Result [facility] CLIA [id number] [address] [facility] [address] [place] [phone], * PROTIME-INR (02/11/2025 10:57 AM CDT) PROTIME 13.9 12.7 - 14.9 Seconds 02/11/2025 11:13 AM CDT [facility] INR 1.0 0.8 - 1.2 02/11/2025 11:13 AM CDT [facility] Blood Venipuncture / Unknown 02/11/2025 10:57 AM CDT 02/11/2025 10:59 AM CDT Narrative [facility] - 02/11/2025 11:13 AM CDT Expected Values for INR: DVT/PE Goal INR 2.5; range 2.0 - 3.0 Valve Replacement Tissue Goal INR 2.5; range 2.0 - 3.0 Valve Replacement Mechanical Goal INR 3.0; range 2.5 - 3.5 POST-KS Goal INR 2.5; range 2.0 - 3.0 or Goal INR 3.0; range 2.5 - 3.5 Atrial Fibrillation Goal INR 2.5; range 2.0 - 3.0 Ischemic Stroke Goal INR 2.5; range 2.0 - 3.0 us Juarez Clements MD HEMATOLOGY ORDERABLES F inal Result [facility] CLIA # [id number] [address] [facility] [address] [place], [place] [address] * BASIC METABOLIC PANEL (02/11/2025 10:57 AM CDT) SODIUM 140 136 - 145 mmol/L 02/11/2025 11:34 AM CDT [facility] POTASSIUM 4.5 3.5 - 5.1 mmol/L 02/11/2025 11:34 AM CDT [facility] CHLORIDE 104 98 - 107 mmol/L 02/11/2025 11:34 AM [facility] CO2 27 22 - 29 mmol/L 02/11/2025 11:34 AM [facility] CALCIUM 9.2 8.8 - 10.2 mg/dL 02/11/2025 11:34 AM T [facility] BUN 19 8 - 23 mg/dL 02/11/2025 11:34 AM [facility] CREATININE 0.89 0.67 - 1.17 mg/dL 02/11/2025 11:34 AM [facility] Comment:The GFR result is no t clinically significant on patients <18 or >70 years of age. GLUCOSE 99 74 - 99 mg/dL 02/11/2025 11:34 AM [facility] GFR >60 mL/min/1.7 3 sq meter 02/11/2025 11:34 AM [facility] Comment:eGFR calculated with 2020 CKD-EPI equation. Vegetarian diet, extremely high or low muscle mass, and may affect results. Cystatin C with Glomerular Filtration Rate is a suitable alternative for these patients. ANION GAP 9 9 - 20 mmol/L 02/11/2025 11:34 AM [facility] Blood Venipuncture / Unknown 02/11/2025 10:57 AM CDT 02/11/2025 10:59 AM CDT Juarez Clements MD CHEMISTRY ORDERABLES Fi nal Result [facility] CLIA # [id number] [address] [place] [phone] * OCCULT BLOOD IMMUNOASSAY, COLORECTAL SCREEN (11/13/2022 12:00 AM CDT) FECAL GLOBIN SEE NOTE [facility] Comment: FECAL GLOBIN BY IMMUNOCHEMISTRY Micro Number: [id number] Test Status: Final Specimen Source: Stool Specimen Quality: Adequate Fecal Globin: Not Detected Test Performed at: [facility] [address] [address] [place] [phone] Hussein Sherwood MD Stool STOOL SPECIMEN / Unknown 11/13/2022 11/26/2022 12:19 PM CDT Kiya York LAWYER CRIMINAL BODY FLUIDS AND STOOLS Final Result [facility] [phone] [facility] [address] [address] Zhao[address]andr[address] [phone] from Last 3 Months or Most Recently Relevant to Health Maintenance Insurance [place]ICAID [place] [facility] Advance Directives For more information, please contact: [phone] * Full Code (Latest Code Status on [...]
--- OUTSIDE RECORDS SUMMARY | 2025-04-23 12:51 | XMS_ITS | Encounter Summary ---
Author Organization [facility] Address [address] [place] [address] Care Team Providers Care Administrative Support Assoc Name Role Phone Unavailable Primary Care Provider Unavailluis e Encounter Details Date Type Department Care Team (Latest Contact Info) Description 04/26/2005 Outpatient Historical [facility] [address] 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
--- OUTSIDE RECORDS SUMMARY | 2025-04-23 12:51 | XMS_ITS | Encounter Summary ---
Author Organization [facility] Address 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 Showing future appointments within next 365 days with a meds authorizing provider and meeting all other requirements Last Labs: Lab Results Component Value Date/Time CREAT 0.85 02/27/2025 02:57 PM CREATPOC 1.00 07/22/2024 08:35 AM BUN 14 02/27/2025 02:57 PM NA 138 02/27/2025 02:57 PM K 4.6 02/27/2025 02:57 PM KPOC 4.7 08/06/2024 12:17 PM CL 102 02/27/2025 02:57 PM CO2 25 02/27/2025 02:57 PM GFR >60 02/27/2025 02:57 PM Lab Results Component Value Date/Time ALT 19 02/27/2025 02:57 PM AST 27 02/27/2025 02:57 PM ALKPHOS 146 (H) 02/27/2025 02:57 PM Cary Reeves LPN, 04/16/2025 2:48 PM documented in this encounter Plan of Treatment Upcoming Encounters Date Type Department Care Team (Late st Contact Info) Description 05/07/2025 8:15 AM COMPUTER PROGRAMMING MANAGER Appointment [facility] MRI [address] [place] [address] Catherine Paul, TAX RECORD CLERK [address] [facility] [address] [place] [address] 05/28/2025 9:20 AM COMPUTER PROGRAMMING MANAGER Office Visit [facility] [address] [place] [phone] Catherine Paul, JESUS [address], [address] [place] [phone] 08/11/2025 2:00 PM COMPUTER PROGRAMMING MANAGER Office Visit [facility] [address] [place] [phone] Juarez Clements MD [address] [place] [phone] Geovanna Scherer NP [address], [address] [place] [phone] documented as of this encounter Visit Diagnoses Not on filedocumented in this encounter
--- OUTSIDE RECORDS SUMMARY | 2025-04-23 12:51 | XMS_ITS | Clinical Summary ---
Author Organization [employer] [facility] Address [address] 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
--- NOTE | 2025-04-23 12:59 | ECG_ITS ---
[facility] Test Date: 2025-04-23 Pat Name: Philippe Dahl Department: Room: Gender: Male Regional Office Coordinator: : 1950 Requested By: Wade Light Order Number: [id number] Dandy MD: Jim Bowling M.D. Measurements Intervals [place] Rate: 99 P: 86 AK: 148 QRS: 119 QRSD: 104 T: 130 QT: 397 QTc: 509 Interpretive Statements SINUS RHYTHM WITH FREQUENT VENTRICULAR PREMATURE COMPLEXES INTRAVENTRICULAR CONDUCTION DELAY POSSIBLE LEFT ATRIAL ENLARGEMENT [-0.1mV P-WAVE IN V1/V2] RIGHT AXIS DEVIATION [QRS AXIS > 100] LOW QRS VOLTAGE IN EXTREMITY LEADS [QRS DEFLECTION < 0.5 mV IN LIMB LEADS] ANTEROSEPTAL MYOCARDIAL INFARCTION , OF INDETERMINATE AGE [40+ ms Q WAVE IN V1-V4] Compared to ECG 04/03/2025 06:54:09 Ventricular premature complex(es) now present Electronically Signed On 04-24-2025 21:06:21 CDT by Jim Bowling M.D. [email or web address]
--- NOTE | 2025-04-23 13:02 | ED_ITS ---
HPI - General Adult 2 General: Chief complaint: ER Hold Stated complaint: Swelling on chest Hard to breath and hard to walk Time Seen by Provider: 04/23/25 12:52 History of Present Illness: 72-year-old male history congestive hear t failure presents emergency room with complaints of 40 pound weight gain increasing swelling of legs worsening dyspnea. Patient is chronically on oxygen at rest his action such remained in the upper 90s but with any exertion he drops and requires supplemental oxygen. Patient reports significant exertional dyspnea and denies chest pain. No chest pain no abdominal pain. Denies any fever sweats chills or productive cough. Known history of congestive heart failure Associated symptoms: Reports dyspnea; Deny chest pain or rash Related Data Home Medications ?Medication ?Instructions ?Recorded ?Confirmed apixaban 5 mg tablet (Eliquis) 5 mg PO BID 04/01/25 ferrous sulfate 325 mg (65 mg 325 mg PO DAILY 04/01/25 04/23/25 iron) tablet (FeroSul) tamsulosin 0.4 mg capsule 0.4 mg PO DAILY 04/01/25 Previous Rx's ?Medication ?Instructions ?Recorded atorvastatin 40 mg tablet 40 mg PO DAILY #90 tabs 02/23 03/15 citalopram 20 mg tablet 20 mg PO DAILY #90 tabs 02/23 03/15 aspirin 81 mg capsule 81 mg PO DAILY #30 caps 03/24 budesonide 0.5 mg/2 mL suspension 0.5 mg (2 mL) inhala tion 04/08/25 for nebulization BID.RESPIRATORY #60 mL furosemide 20 mg tablet (Lasix) 20 mg PO QAM PRN weigh t gain #20 04/08/25 tabs ipratropium bromide 0.02 % 0.5 mg (2.5 mL) inhalation Q8H 04/08/25 solution for inhalation #150 mL levofloxacin 750 mg tablet 750 mg PO DAILY@0600 #3 tab s 04/08/25 metoprolol tartrate 25 mg tablet 12.5 mg (1/2 x 25 mg) PO 04/08/25 BID@0900,2100 30 days #30 tabs midodrine 5 mg tablet 5 mg PO TID 30 days #90 tabs 04/08/25 pantoprazole 40 mg tablet,delayed 40 mg PO DAILY #30 t abs 04/08/25 release prednisone 10 mg tablet See Taper PO DIRECTED #42 tabs 04/08/25 Allergies Allergy/AdvReac Type Severity Reaction Status Date / Time adhesive Allergy Unknown Verified 04/23/25 13:03 Review of Systems 2 Const: Denies: fever(s) or chills Card: Reports: edema, swelling of feet/ankles and dyspnea on exertion; Denies: chest pain Resp: Reports: dyspnea GI: Denies: abdominal pain : Denies: dysuria, urinary frequency or urinary urgency Musc: Denies: neck pain or back pain Skin/Breast: Denies: rash PFSH ED 2 PFSH: Medical History Acute on chronic hypoxic respiratory failure Heart failure Afib COPD (chronic obstructive pulmonary disease) GERD (gastroesophageal reflux disease) [place] (hard of hearing) CAD (coronary artery disease) Hx of myocardial infarction Hyperlipidemia Depression Hypertension Surgical History Hx of CABG Hx of appendectomy Hx of heart artery stent Family History Father No problems noted. Mother Cancer stomach Social History Smoking and tobacco/nicotine status: current every day tobacco/nicotine user cigarettes [ Other cigarette details: 2 to 3 packs a week] Alcohol intake: current Alcohol intake frequency: few times a month Physical Exam 2 Const: GENERAL APPEARANCE: cooperative ORIENTATION/CONSCIOUSNESS: Yes awake, Yes oriented to person, Yes oriented to place and Yes oriented to time HENMT: COMMON NORMALS: normocephalic, atraumatic and hearing grossly normal bilaterally HEAD & SCALP: normocephalic and atraumatic Resp: COMMON NORMALS: normal respiratory effort, No retractions, No use of accessory muscles and clear to auscultation bilaterally AUSCULTATION: clear to auscultation bilaterally Cardio: COMMON NORMALS: regular rate, regular rhythm and No murmurs present (Cardio) RATE: regular rate RHYTHM: regular rhythm GI: COMMON NORMALS: Soft to palpation and No hepatosplenomegaly present A USCULTATION: Yes normoactive bowel sounds PALPATION: Yes Soft to palpation, No Tenderness to palpation present (GI), No Guarding due to palpation present (GI) and Yes No hepatosplenomegaly present Extremity: GENERAL: Yes edema Neuro: SENSORIUM/ORIENTATION: Yes oriented to person, Yes oriented to place and Yes oriented to time Skin: COMMON NORMALS: no rashes or lesions noted GENERAL SKIN EXAM: no rashes or lesions noted Course 2 Vital Signs: Vital signs: Vital Signs Temperature 96.6 F L 04/24/25 03:13 Pulse Rate 77 04/24/25 04:45 Respiratory Rate 17 04/24/25 04:45 Blood Pressure 113/70 04/24/25 03:13 Pulse Oximetry 94 04/24/25 04:45 Oxygen Delivery Me thod Room Air 04/24/25 04:45 Oxygen Flow Rate 2 04/23/25 12:51 MDM - General Adult Medical Decision Making Patient initially seen labs ordered including CBC BMP chest x-ray. Evaluate for pneumonia acute exacerbation of chronic congestive heart failure acute coronary syndrome Labs and imaging reviewed as found on the chart. Decompensated congestive heart failure failure of outpatient treatment. Patient given Lasix here he still continues to be short of breath has had good response will admit for IV diuresis for treatment of acute exacerbation of chronic heart failure. Discussed with hospitalist orders written Medical Records I reviewed the patient's medical records. Lab Data I reviewed the patient's lab results. 04/24/25 03:11 04/24/25 03:11 Radiology Impressions Chest X-Ray 04/23/25 12:48 IMPRESSION: 1. No acute cardiopulmonary process. Laboratory Results WBC 8.98 10^3/uL (3.29-11.43) 04/23/25 13:05 RBC 3.89 10^6/uL (3.85-5.65) 04/23/25 13:05 Hgb 11.50 g/dL (11.27-16.99) 04/23/25 13:05 Hct 36.1 % (37-53) L 04/23/25 13:05 MCV 92.8 fl (82-101) 04/23/25 13:05 MCH 29.6 pg (27-33) 04/23/25 13:05 MCHC 31.9 g/dL (30-55) 04/23/25 13:05 RDW 20.0 % (12.1-15.1) H 04/23/25 13:05 Plt Count 70 10^3/cmm (157-399) L 04/23/25 13:05 MPV 12.0 fL (7.4-10.4) H 04/23/25 13:05 Neut % (Auto) 85.5 % 04/23/25 13:05 Lymph % (Auto) 7.6 % 04/23/25 13:05 [place] % (Auto) 5.6 % 04/23/25 13:05 Eos % (Auto) 1.0 % 04/23/25 13:05 Baso % (Auto) 0.1 % 04/23/25 13:05 Neut # (Auto) 7.68 10^3/uL (1.8-7.7) 04/23/25 13:05 Lymph # (Auto) 0.7 10^3/uL (0.8-4.8) L 04/23/25 13:05 [place] # (Auto) 0.5 10^3/uL (0.2-0.9) 04/23/25 13:05 Eos # (Auto) 0.1 10^3/uL (0.0-0.8) 04/23/25 13:05 Baso # (Auto) 0.0 10^3/uL (0.0-0.1) 04/23/25 13:05 Nucleated RBC % (auto) 0 % 04/23/25 13:05 Nucleated RBCs # 0.0 /100WBC 04/23/25 13:05 Sodium 135 mmol/L (136-145) L 04/23/25 13:05 Potassium 4.1 mmol/L (3.5-5.1) 04/23/25 13:05 Chloride 98 mmol/L (98-107) 04/23/25 13:05 Carbon Dioxide 24 mmol/L (22-29) 04/23/25 13:05 Anion Gap 17.1 (5-19) 04/23/25 13:05 BUN 30 mg/dL (8-23) H 04/23/25 13:05 Creatinine 0.7 mg/dL (0.7-1.2) 04/23/25 13:05 GFR Calculation Not Reportable 04/23/25 13:05 Glucose 257 mg/dL (65-115) H 04/23/25 13:05 Calculated Osmolality 295 mOsm/kg (285-295) 04/23/25 13:05 Calcium 8.7 mg/dL (8.5-10.5) 04/23/25 13:05 Total Bilirubin 1.5 mg/dL (0.15-1.2) H 04/23/25 13:05 AST 51 U/L (0-40) H 04/23/25 13:05 ALT 127 U/L (0-41) H 04/23/25 13:05 Alkaline Phosphatase 173 U/L (40-130) H 04/23/25 13:05 Troponin T Baseline 85 ng/L (0-15) H 04/23/25 13:05 Troponin T 120 Minute 91.07 ng/L (0-15) H 04/23/25 15:12 Delta Troponin T 6.07 ABS# (0-10) 04/23/25 15:12 NT-Pro-B Natriuret Pep 9964 pg/mL (0-125) H 04/23/25 13:05 Total Protein 4.9 g/dL (6.6-8.7) L 04/23/25 13:05 Albumin 3.3 g/dL (3.5-5.2) L 04/23/25 13:05 Globulin 1.6 g/dL (1.3-4.6) 04/23/25 13:05 XR interpretation done by ED provider, pending radiology final review ED provider radiology interpretation(s): Increased pulmonary markings on chest x-ray consistent with congestive heart failure EKG Data EKG 1: I personally reviewed and interpreted this EKG as follows: Interpretation: EKG sinus rhythm with PVCs rate of 99 UT interval 148 QTc 509. No acute ST changes noted compared to EKG 04/03/2025 no new findings noted Computer generated interpretation: Chest X-Ray 04/23/25 12:48 IMPRESSION: 1. No acute cardiopulmonary process. EKG 2: I personally reviewed and interpreted this EKG as follows: Interpretation: EKG 04/23/2025 1455 sinus rhythm rate of 99 QTc 500. Suspect reversal of arm leads based on changes in QRS morphology no significant acute changes compared to previous EKG done on same day Computer generated interpretation: Chest X-Ray 04/23/25 12:48 IMPRESSION: 1. No acute cardiopulmonary process. Discharge Plan Discharge Patient Disposition: Admitted As Inpatient Admit Provider: Tyson Watters Clinical Impression: Acute on chronic heart failure with reduced ejection fraction (HFrEF, <= 40%) and combined systolic and diastolic dysfunction, Dyspnea on exertion, Afib, CAD (coronary artery disease) Condition: Stable Coding Level of Care Code ED Automatic Nailing Machine Feeder for Autumn Flowers
[2025-04-23 13:13] LABS: Hematocrit 36.1 % (37-53); Hemoglobin 11.50 g/dL (11.27-16.99); Mean Corpuscular HGB Conc 31.9 g/dL (30-55); Mean Corpuscular Hemoglobin 29.6 pg (27-33); Mean Corpuscular Volume 92.8 fl (82-101); Nucleated Red Blood Cells % 0 %; Platelet Count 70 10^3/cmm (157-399); Red Blood Count 3.89 10^6/uL (3.85-5.65); White Blood Count 8.98 10^3/uL (3.29-11.43)
[2025-04-23 13:34] LABS: Troponin(5th) Baseline 85 ng/L (0-15)
[2025-04-23] MEDS: FUROsemide 10 mg/mL SDV 10mL 60 MG IVP (13:49)
[2025-04-23 14:06] LABS: Alanine Aminotransferase 127 U/L (0-41); Albumin Level 3.3 g/dL (3.5-5.2); Alkaline Phosphatase 173 U/L (40-130); Anion Gap 17.1 (5-19); Aspartate Amino Transferase 51 U/L (0-40); Blood Urea Nitrogen 30 mg/dL (8-23); Calcium 8.7 mg/dL (8.5-10.5); Carbon Dioxide 24 mmol/L (22-29); Chloride 98 mmol/L (98-107); Creatinine Clr Calc Pharmacy 91.8930; Globulin 1.6 g/dL (1.3-4.6); Glucose 257 mg/dL (65-115); NT Pro B Type Natriuretic Pept 9964 pg/mL (0-125); Osmolality Calculated 295 mOsm/kg (285-295); Potassium 4.1 mmol/L (3.5-5.1); Sodium 135 mmol/L (136-145); Total Protein 4.9 g/dL (6.6-8.7)
--- NOTE | 2025-04-23 14:55 | ECG_ITS ---
[facility] Date: 2025-[facility]23 Pat Name: Philippe Dahl Department: Room: Gender: Male Pharmacy Coordinator: : 1950 Requested By: Wade Light Order Number: [id number] Dandy MD: Jim Bowling M.D. Measurements Intervals [place] Rate: 99 P: 102 [place]: 149 QRS: 122 QRSD: 110 T: 160 QT: 388 QTc: 500 Interpretive Statements SINUS RHYTHM INTRAVENTRICULAR CONDUCTION DELAY Compared to ECG 04/23/2025 12:59:29 Ventricular premature complex(es) no longer present Electronically Signed On 04-24-2025 21:18:32 CDT by Jim Bowling M.D. [email or web address]
[2025-04-23 15:37] LABS: Troponin 5 2HR 91.07 ng/L (0-15); Troponin 5 2HR Delta 6.07 ABS# (0-10)
[2025-04-23] MEDS: pantoprazole 40 mg SDV IVP (17:31)
--- NOTE | 2025-04-23 18:15 | PC.NURSE ---
Pt refused urinary catheter. Pt stated I do not want that catheter .
[2025-04-23 18:26] LABS: Magnesium 1.8 mg/dL (1.7-2.3); Thyroid Stimulating Hormone 3.44 uIU/mL (0.27-4.20)
--- OUTSIDE RECORDS SUMMARY | 2025-04-23 19:31 | XMS_ITS | Clinical Summary ---
Author Organization [facility] Address [address] 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
--- OUTSIDE RECORDS SUMMARY | 2025-04-23 19:31 | XMS_ITS | Encounter Summary ---
Author Organization [facility] Address [address] [place] [address] Care Team Providers Care Word Processing Machine Operator Name Role Phone Unavailable Primary Care Provider Unavailluis e Encounter Details Date Type Department Care Team (Latest Contact Info) Description 04/26/2005 Outpatient Historical [facility] [address] 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
--- OUTSIDE RECORDS SUMMARY | 2025-04-23 19:31 | XMS_ITS | Clinical Summary ---
Author Organization 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 Name Role Phone Unavailable Primary Care Provider [...] 02/03/2025 Chronic combined systolic and diastolic CHF, [facility] A class 2 02/03/2025 NYHA class 3 [...] PSA, less than 10 ng/ml 03/05/2024 Athscl [place] arteries of extrm w intrmt mark, bi legs 02/04/2023 Tobacco use 11/14/2022 Resolved Problems Problem Noted Date Diagnosed Date Resolved Date Acute respiratory insufficie ncy, postoperative 08/04/2024 08/11/2024 Acute coronary syndrome 07/24/202401/22 Abnormal stress test 07/24/2024 025 Encounters Date Type Department Care Team Description 04/16/[address] [phone] Kiya York, TANK WORKER 03/30/2025 External Device Data STL ABSTRACTION Provider, Abstract 03/10/2025 1:30 PM CDT Nurse Only [place] [address] [facility] [address] [place] [phone] Juarez Clements MD Sick sinus syndrome (CMS/HCC) (Primary Dx); Atrial fibrillation, unspecified type (CMS/HCC); Ischemic dilated cardiomyopathy (CMS/HCC); Automatic implantable cardioverter-defibril lator in situ 03/08/2025 Telephone [facility] [address] [address] Willie Byrne MD Needs Appointment 03/05/2025 10:15 AM CDT Office Visit [facility] [address] [facility] [address] [place] [phone] Hung Lorenzo MD CAD in [place] artery (Primary Dx); S/P CABG (coronary artery bypass graft) 03/02/2025 External Device Data STL ABSTRACTION Provider, Abstract 03/02/2025 External Device Data STL ABSTRACTION Provider, Abstract 03/02/2025 External Device Data STL ABSTRACTION Provider, Abstract 03/01/2025 Refill [facility] [address] [phone] Raiza Nesbitt FNP 03/01/2025 Telephone [facility] [address] [phone] Willie Byrne MD Ed Follow-up 02/27/2025 5:02 PM CDT - 02/27/2025 7:45 PM CDT Emergency [facility] Emergency Department [address] [place] [address] Naveen Morin MD Shortness of breath (Primary Dx); COPD with exacerbation ([facility]) Discharge Disposition: Home or Self Care 02/27/2025 Travel 02/24/2025 External Device Data STL ABSTRACTION Provider, Abstract 02/11/2025 1:45 PM CDT Anesthesia Event [facility] Cardiac Pediatric Oncologist Critical access hospital[address] [place] [address] Yaniv Bojorquez II, 02/11/2025 12:00 PM CDT - 02/11/2025 1:09 PM CDT Surgery [facility] Cardiac Pediatric Oncologist Critical access hospital[address] [place] [address] Juarez Clements MD ICD Insertion 02/11/2025 10:09 AM CDT - 02/11/2025 5:25 PM CDT Hospital Encounter [facility] [address] [place] [address] Juarez Clements MD NYHA class 3 acute on chronic systolic heart failure Discharge Disposition: Home or Self Care 02/09/2025 External Device Data STL ABSTRACTION Provider, Abstract 02/03/2025 11:00 AM CDT Office Visit [place] [address] [place] [phone] Juarez Clements MD Ischemic dilated cardiomyopathy (CMS/HCC) (Primary Dx); Essential hypertension; Mixed hyperlipidemia; PAF (paroxysmal atrial fibrillation) (CMS/HCC); S/P CABG x 3; Sinus bradycardia; Status post coronary artery bypass graft; Status post ligation of left atrial appendage; ASHD (arteriosclerotic heart disease); Chronic anticoagulation; Chronic combined systolic and diastolic CHF, NYHA class 2 ([facility]/HCC) 02/03/2025 Telephone [place] [address] [place] [phone] Hung Lorenzo MD Follow Up 02/03/2025 Prep for Surgery [place] [address] [place] [phone] Juarez Clements MD Ischemic dilated cardiomyopathy (CMS/HCC) (Primary Dx); NYHA class 3 acute on chronic systolic heart failure (CMS/HCC) 02/03/2025 Telephone [place] [address] [place] [phone] Juarez Clements MD Procedure 02/02/2025 Telephone [place] [address] [place] [phone] Catherine Paul NP Needs Form Or Letter Filled Out; Information (Will have Catherine DE LA PAZ sign/Zoll forms. 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 Gender Identity Not on file Sexual [...] st Contact Info) Description 05/07/2025 8:15 AM SEED YEAST OPERATOR Appointment [facility] MRI [address] [place] [address] Catherine Paul, TUGBOAT CAPTAIN [address] [facility] [address] [place] [address] 05/28/2025 9:20 AM SEED YEAST OPERATOR Office Visit [facility] [address] [facility] [address] [place] [phone] Catherine Paul, JESUS [address] [facility] [address] [place] [address] 08/11/2025 2:00 PM SEED YEAST OPERATOR Office Visit [facility] [address] [place] [address] Juarez Clements MD [address] [facility] [address] [place] [phone] Geovanna Scherer NP [address] [facility] [address] [place] [address] Health Maintenance Due Date Last [...] Q 1 year 11/14/2023 11/13/2022 Medicare Advantage (NE) Prev entative Visit/Annual Wellness Visit 06/24/2024 INFLUENZA VACCINE (#1) 2025 04/06/2024 Medical Devices Implanted Type Area Head Boys Tennis Coach Device Identifier Shelf Expiration Date Model / Serial / Lot Atriclip Flex-V Claudia Exclusion 45mm Achv45 - [id number] Implanted:Qty : 1 on 08/04/2024 by Jesus Manuel Newton MD at [facility] Cardiovascular Device N/A: Chest A[employer]ICURE INC [id number] 05/24/2027 [id number] / / [id number] Clip Ligating Horizon Red 141394 - Csc - [id number] Implanted:Qty : 1 on 08/04/2024 by Jesus Manuel Newton MD at [facility] Clip N/A: Chest TELEFLEX INC [id number] 04/23/2029 / / [id number] Clip Ligating Horizon Red 798455 - Csc - [id number] Implanted:Qty : 1 on 08/04/2024 by Jesus Manuel Newton MD at [facility] Clip N/A: Chest TELEFLEX INC [id number] 04/23/2029 / / [id number] Clip Ligating Horizon Red 460199 - Csc - [id number] Implanted:Qty : 1 on 08/04/2024 by Jesus Manuel Newton MD at [facility] Clip N/A: Chest TELEFLEX INC [id number] 04/23/2029 / / [id number] Clip Ligating Horizon Lrg Ti 10.07x12.38mm 540743 - [facility] - [id number] Implanted:Qty : 1 on 08/06/2024 by Jesus Manuel Newton MD at [facility] Clip N/A: Neck TELEFLEX- WECK CLOSURE SYS 08/25/2028800835 / / [id number] Clip Ligating Horizon Lrg Ti 10.07x12.38mm 603837 - Csc - [id number] Implanted:Qty : 1 on 08/06/2024 by Jesus Manuel Newton MD at [facility] Clip N/A: Neck TELEFLEX- WECK CLOSURE SYS 08/25/2028519817 / / [id number] Dev Closure Angioseal 6fr Vip 313535 - [id number] Implanted:Qty : 1 on 02/04/2023 at [facility] Closure Device Left: Groin [facility] 11/22/2023 [id number] / / [id number] Defib Icd Ulysses Xt Mri [id number] Df4 Dual Chmbr Surescan [id number] - [id number] Implanted:Qty : 1 on 02/11/2025 by Juarez Clements MD at [facility] Defibrillator Left: Chest Wall MEDTRONIC- CARD RHYTHM MGMT [id number] 05/21/2026 [id number] / [id number] / Graft Vasc Hemashield Gold Knit 462194 - [id number] Implanted:Qty : 1 on 08/04/2024 by Jesus Manuel Newton MD at [facility] Graft N/A: Chest GET[employer]E [employer] INC [id number] 05/23/2028 [id number] / [id number] / [id number] Orthostat 2.0gm Os-201 - [id number] Implanted:Qty : 1 on 08/04/2024 by Jesus Manuel Newton MD at [facility] Hemostatic N/A: Chest ORTHOCON, INC [id number] 03/23/2027 OS- Orthostat 2.0gm Os-201 - [id number] Implanted:Qty : 1 on 08/04/2024 by Jesus Manuel Newton MD at [facility] Hemostatic N/A: Chest ORTHOCON, INC [id number] 03/23/2027 OS- Lead Pacing Capsure Fix Novus 52cm [id number] - [facility] - [id number] Implanted:Qty : 1 on 02/11/2025 by Juarez Clements MD at [facility] Lead Left: Chest Wall MEDTRONIC- CRM - BULK BUY [id number] 11/06/2026 [id number] / [id number] / Lead Sprint Quattro Secure 62cm [id number] - [facility] - [id number] Implanted:Qty : 1 on 02/11/2025 by Juarez Clements MD at [facility] Lead Left: Chest Wall MEDTRONIC- CRM - BULK BUY [id number] 12/03/2026 [id number] / [id number] 15V / Adh Bioglue 10ml Ff8408-2-[id number] - [id number] Implanted:Qty : 1 on 08/04/2024 by Jesus Manuel Newton MD at [facility] Sealant N/A: Chest ARTIVION (FKA CRYOLIFE) [id number] 09/20/2025 WB0179- 5-US / / [id number] Stent Lifestent 5fr [id number] 135cm [id number] - [id number] Implanted:Qty : 1 on 02/04/2023 at [facility] Stent Right: Leg BARD CAROLYNN VASC 02/02/2025 [id number] / / [id number] Plt Bone H Concave 6h Nst Lf Implanted:Qty : 1 on 08/04/2024 by Jesus Manuel Newton MD at [facility] N/A: Chest MIREYA BIOMET 115.602 .06 / / Plt Bone H Concave 6h Nst Lf Implanted:Qty : 1 on 08/04/2024 by Jesus Manuel Newton MD at [facility] N/A: Chest MIREYA BIOMET 115.602 .06 / / Sternalock Ez 16 Mm Screw Implanted:Qty : 1 on 08/04/2024 by Jesus Manuel Newton MD at [facility] N/A: Chest ZIMMERB IOMET-1 00.035. 16 / / Sternalock Ez 16 Mm Screw Implanted:Qty : 1 on 08/04/2024 by Jesus Manuel Newton MD at [facility] N/A: Chest ZIMMERB IOMET-1 00.035. 16 / / Sternalock Ez 16 Mm Screw Implanted:Qty : 1 on 08/04/2024 by Jesus Manuel Newton MD at [facility] N/A: Chest ZIMMERB IOMET-1 00.035. 16 / / Sternalock Ez 16 Mm Screw Implanted:Qty : 1 on 08/04/2024 by Jesus Manuel Newton MD at [facility] N/A: Chest ZIMMERB IOMET-1 00.035. 16 / / Sternalock Ez 16 Mm Screw Implanted:Qty : 1 on 08/04/2024 by Jesus Manuel Newton MD at [facility] N/A: Chest ZIMMERB IOMET-1 00.035. 16 / / Sternalock Ez 16 Mm Screw Implanted:Qty : 1 on 08/04/2024 by Jesus Manuel Newton MD at [facility] N/A: Chest ZIMMERB IOMET-1 00.035. 16 / / Sternalock Ez 16 Mm Screw Implanted:Qty : 1 on 08/04/2024 by Jesus Manuel Newton MD at [facility] N/A: Chest ZIMMERB IOMET-1 00.035. 16 / / Sternalock Ez 16 Mm Screw Implanted:Qty : 1 on 08/04/2024 by Jesus Manuel Newton MD at [facility] N/A: Chest ZIMMERB IOMET-1 00.035. 16 / / Sternalock Ez 16 Mm Screw Implanted:Qty : 1 on 08/04/2024 by Jesus Manuel Newton MD at [facility] N/A: Chest ZIMMERB IOMET-1 00.035. 16 / / Sternalock Ez 16 Mm Screw Implanted:Qty : 1 on 08/04/2024 by Jesus Manuel Newton MD at [facility] N/A: Chest ZIMMERB IOMET-1 00.035. 16 / / Sternalock Ez 16 Mm Screw Implanted:Qty : 1 on 08/04/2024 by Jesus Manuel Newton MD at [facility] N/A: Chest ZIMMERB IOMET-1 00.035. 16 / / Screw Bone 18mm Lck Nst Lf Implanted:Qty : 1 on 08/04/2024 by Jesus Manuel Newton MD at [facility] N/A: Chest MIREYA BIOMET 100.035 .18 / / Screw Bone 18mm Lck Nst Lf Implanted:Qty : 1 on 08/04/2024 by Jesus Manuel Newton MD at [facility] N/A: Chest MIREYA BIOMET 100.035 .18 / / Screw Bone 18mm Lck Nst Lf Implanted:Qty : 1 on 08/04/2024 by Jesus Manuel Newton MD at [facility] N/A: Chest MIREYA BIOMET 100.035 .18 / / Screw Bone 18mm Lck Nst Lf Implanted:Qty : 1 on 08/04/2024 by Jesus Manuel Newton MD at [facility] N/A: Chest MIREYA BIOMET 100.035 .18 / / Screw Bone 18mm Lck Nst Lf Implanted:Qty : 1 on 08/04/2024 by Jesus Manuel Newton MD at [facility] N/A: Chest MIREYA BIOMET 100.035 .18 / / Screw Bone 18mm Lck Nst Lf Implanted:Qty : 1 on 08/04/2024 by Jesus Manuel Newton MD at [facility] N/A: Chest MIREYA BIOMET 100.035 .18 / / Screw Bone 16mm Lck Nst Lf Implanted:Qty : 1 on 08/04/2024 by Jesus Manuel Newton MD at [facility] N/A: Chest MIREYA BIOMET 100.035 .16 / / Procedures Procedure Name Priority Date/Time Associated Diagnosis Comments MS PROGRAM EVAL IMPLANT DEVICE,CARDVERT/DEF IB,2 LEAD WITHIN [...] WITH DIFFERENTIAL Routine 02/11/2025 10:57 AM CDT MS ECG ROUTINE ECG W/LEAST 12 LDS W/I&R Routine 02/03/2025 11:02 AM CDT Sinus bradycardia CAD in [place] artery S/P CABG (coronary artery bypass graft) Referral of patient OCCULT BLOOD IMMUNOASSAY, COLORECTAL SCREEN Routine 11/13/2022 12:00 AM CDT Encounter for colorectal cancer screening from Last 3 Months or Most Recently Relevant to Health Maintenance Results * MS PROGRAM EVAL IMPLANT DEVICE,CARDVERT/DEFIB,2 LEAD WITHIN GLOBAL (03/10/2025 2:03 PM CDT) Narrative [facility] - 03/10/2025 2:03 PM CDT Elva [...] care, arm restrictions and recommended follow up. [facility] f/u reviewed. [facility] Patient verbalized understanding of all instructions. F/U [...] incision care, arm restrictions and recommendedfollow up. [facility] f/u reviewed. [facility].Patient verbalized understanding of all instructions. F/U with EP officein 3 months. See attached report for details. Juarez Clements MD CARDIAC SERVICES ORDERA BLES Final Result [facility] [address] [place] [address] * (ABNORMAL) TROPONIN 2 HR, 5TH GEN (02/27/2025 5:22 PM CDT) TROPONIN T, 2 HR 5TH GEN 74(H) <=15 ng/L 02/27/2025 6:23 PM CDT [facility] [place] DELTA 2HR TROPONIN T -5 See Interp. [...] ORDERABLES Lady l Result Performing Organization Address [facility]/ZIP Co de Phone Number [facility] CLIA # [id number] [address] [address] * (ABNORMAL) BRAIN NATRIURETIC PEPTIDE, BNP OR [...] ORDERABLES Final Re sult Performing Organization Address [facility]/ZIP Co de Phone Number [facility] CLIA # [id number] [address] [place] [address] [place] [address] * XR CHEST PA OR AP 1 [...] 79(H) <=15 ng/L 02/27/2025 3:33 PM CDT [facility] Electron Database [facility] Blood Venipuncture / Unknown 02/27/2025 2:57 PM CDT 02/27/2025 3:03 PM CDT Narrative [facility] LAB[facility] - 02/27/2025 3:33 PM CDT Troponin elevated. Shilpa Yaniv Татьяна HOUSE ADMIN CHEMISTRY ORDERABLES Lady l Result [facility] CLIA # [id number] [address] [address] [place] [address] * (ABNORMAL) CBC WITH DIFFERENTIAL (02/27/2025 2:57 PM CDT) Only the most recent of2 resultswithin the time period is included. [facility] WBC 7.1 4.8 - 10.8 K/uL 02/27/2025 [...] 140 - 440 K/uL 02/27/2025 3:06 PM [facility] MPV 10.6 8.9 - 12.8 fL 02/27/2025 3:06 PM [facility] RDW 15.6(H) 11.0 - 14.5 % 02/27/2025 3:06 PM [facility] RDW-STDEV 49.0 37.0 - [...] 02/27/2025 3:03 PM CDT us Shilpa Vaz HOUSE ADMIN HEMATOLOGY ORDERABLES Fin al Result [facility] CLIA # [id number] Critical access hospital[address] [address] [place] [address] * MAGNESIUM LEVEL (02/27/2025 2:57 PM CDT) MAGNESIUM 2.3 1.6 - 2.4 mg/dL 02/27/2025 3:43 PM CDT [facility] Blood Venipuncture / Unknown 02/27/2025 2:57 PM CDT 02/27/2025 3:03 PM CDT Shilpa Vaz APRN CHEMISTRY ORDERABLES Lady l Result [facility] CLIA # [id number] [address] [place] [address] * (ABNORMAL) COMPREHENSIVE METABOLIC PANEL (02/27/2025 2:57 PM CDT) Pathologist [facility] SODIUM 138 136 - 145 mmol/L 02/27/2025 [...] CDT 02/27/2025 3:03 PM CDT Shilpa Vaz HOUSE ADMIN CHEMISTRY ORDERABLES Lady l Result [facility] CLIA # [id number] [address] [address] * EKG 12-LEAD (02/27/2025 2:44 PM CDT) Only the most recent of3 resultswithin the time period is included. 02/27/2025 2:44 PM CDT Narrative [facility] - 02/28/2025 1:12 PM CDT [address] [address] Test Date: 2025-02-27 Pat Name: SHILPA DAHL Department: 11 Room: Gender: Male Necktie Maker: [id number] : 1950 Requested By: Order Number: [id number] Reading : Joseline Butts Measurements Intervals [place] Rate: 102 P: 74 MS: 172 QRS: 100 QRSD: 96 T: 240 QT: 372 QTc: 484 Interpretive Statements Sinus tachycardia Septal infarct, age undetermined Lateral infarct, age undetermined ST & T wave abnormality, consider inferior ischemia Abnormal ECG Electronically Signed On 02-28-2025 13:12:48 CDT by Joseline Butts Procedure Note Provider, Historical - 02/28/[address] [address] Test Date: 2025-02-27 Pat Name: SHILPA DAHL Department: 11 Room: Gender: Male Necktie Maker: [id number] : 1950 Requested By: Order Number: [id number] Dandy COTTO: Joseline Butts Measurements Intervals [place] Rate: 102 P: 74 MS: 172 QRS: 100 QRSD: 96 T: 240 [...] W ANES (02/11/2025 2:32 PM CDT) Narrative [facility] - 02/11/2025 2:41 PM CDT Summary: 1. Successful Dual Chamber ICD Implant (MRI Compatible) Estimated Blood Loss There was minimal blood loss during procedure. Procedure Details [facility] Clinical Cardiac Electrophysiology Device Report Procedures: 1. Medtronic Dual Chamber ICD Implant 2. Contrast Venography 3. Left Subclavian Vein Access 4. Device Interrogation 5. Conscious Sedation (performed by Anesthesia) 6. Fluoroscopy with Interpretation Operators: 1. Juarez Clements MD, [facility], [facility] - Clinical Cardiac Electrophysiology Indication: 74 [...] = < 30 cc. Device Model: Medtronic Ulysses XT DR MRI SureTnmukund [id number] ATRIAL Lead: EDSON [id number]/[id number] Pacing Threshold: 0.5V @ 0.4ms Impedance: 551 ohms P wave: 2.0 mV RIGHT VENTRICULAR Lead: EDSON 6935M/[id number] Pacing Threshold: 0.5V @ 0.4ms Impedance: 570 ohms R wave: 9.5 mV Complications: None Summary: 1. Successful Dual Chamber ICD Implant (MRI Compatible) Juarez Clements MD, [facility], [facility] Clinical Cardiac Electrophysiology [employer] Racker of Clinical Medicine [facility] Procedural Indications 74 y/o WM with h/o IDCM, CAD, NYHA Class III HF, PAF, SSS, and EF < 35% despite OMT > 3 months presents for a dual chamber ICD for primary prevention and sick sinus syndrome. Juarez Clements MD CUP EP ORDERABLES Final Result [facility] CLIA [id number] [address] [facility] [address] [place] [phone], * PROTIME-INR (02/11/2025 10:57 AM CDT) PROTIME 13.9 12.7 - 14.9 Seconds 02/11/2025 11:13 AM CDT [facility] INR 1.0 0.8 - 1.2 02/11/2025 11:13 AM CDT [facility] Blood Venipuncture / Unknown 02/11/2025 10:57 AM CDT 02/11/2025 10:59 AM CDT Narrative [facility] Electron Database [facility] - 02/11/2025 11:13 AM CDT Expected Values for INR: DVT/PE Goal INR 2.5; range 2.0 - 3.0 Valve Replacement Tissue Goal INR 2.5; range 2.0 - 3.0 Valve Replacement Mechanical Goal INR 3.0; range 2.5 - 3.5 POST-TX Goal INR 2.5; range 2.0 - 3.0 or Goal INR 3.0; range 2.5 - 3.5 Atrial Fibrillation Goal INR 2.5; range 2.0 - 3.0 Ischemic Stroke Goal INR 2.5; range 2.0 - 3.0 us Juarez Clements MD HEMATOLOGY ORDERABLES F inal Result [facility] CLIA # [id number] [address] [facility] [address] [place], [place] [address] * BASIC METABOLIC PANEL (02/11/2025 10:57 AM CDT) SODIUM 140 136 - 145 mmol/L 02/11/2025 11:34 AM CDT [facility] Electron Database [facility] POTASSIUM 4.5 3.5 - 5.1 mmol/L 02/11/2025 [...] nal Result [facility] CLIA # [id number] [address] [place] [id number] * OCCULT BLOOD IMMUNOASSAY, COLORECTAL SCREEN (11/13/2022 12:00 AM CDT) FECAL GLOBIN SEE NOTE [facility]- Karol Comment: FECAL GLOBIN BY IMMUNOCHEMISTRY Micro Number: [id number] Test Status: Final Specimen Source: Stool Specimen Quality: Adequate Fecal Globin: Not Detected Test Performed at: [facility] [address] [address] [place] [phone] Hussein Sherwood MD Stool STOOL SPECIMEN / Unknown 11/13/2022 11/26/2022 12:19 PM CDT Kyia York TANK WORKER BODY FLUIDS AND STOOLS Final Result [facility] [phone] [place] [address] [address] Zhao[address]andr[address] [phone] from Last 3 Months or Most Recently Relevant to Health Maintenance Insurance MEDICAID [facility] Advance Directives For more information, please contact: [phone] * Full Code (Latest Code Status on [...]
--- OUTSIDE RECORDS SUMMARY | 2025-04-23 19:31 | XMS_ITS | Encounter Summary ---
Author Organization [facility] Address 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 MRI [address] [place] [address] Catherine Paul, HOSPICE RN [address] [facility] [address] [place] [address] 05/28/2025 9:20 AM INSULATION NOZZLEMAN Office Visit [facility] [address] [place] [phone] Catherine Paul, JESUS [address], [address] [place] [address] 08/11/2025 2:00 PM INSULATION NOZZLEMAN Office Visit [facility] [address] [place] [phone] Juarez Clements MD [address] [place] [phone] Geovanna Scherer NP [address], [address] [place] [phone] documented as of this encounter Visit Diagnoses Not on filedocumented in this encounter
[2025-04-23 19:35] LABS: Troponin 5 6HR 94.41 ng/L (0-15); Troponin 5 6HR Delta 9.41 ng/L (0-12)
--- NOTE | 2025-04-23 21:58 | PM.HP ---
Providers/Chief Complaint Admitting Physician: Tyson Watters MD Primary Care Provider: YAMILA Almeida Chief Complaint: Swelling on chest Hard to breath and hard to walk History of Present Illness As per the previous notes and the patient: Philippe Dahl is a 74 year old male with chronic HFrEF (40%) with diastolic dysfunction, CAD status post CABG, ischemic cardiomyopathy with AICD/PPM in place, atrial fibrillation, COPD, hyperlipidemia, depression, and GERD presented with mild increase in shortness of breath from the last 1 to 2 weeks associated with worsening of his lower limb swellings and also weight gain. The patient did not report any fever, chills or any chest pain or chest pressure. No abdominal pain diarrhea. He also reported that he was having increased his lower leg swellings however his urinary output has been adequate. He is compliant to his medication. The patient did not take flu shot No recent travels or any sick contacts. Rest of the review of system is unremarkable Review of Systems General: Reports: 10 or more systems reviewed and unremarkable except in HPI and below Medications/Allergies Home Medications ?Medication ?Instructions ?Recorded ?Confirmed ?Last Taken ?Type atorvastatin 40 mg tablet 40 mg PO DAILY #90 tabs 03/22/22 04/23/25 04/23/25 08:00 Rx citalopram 20 mg tablet 20 mg PO DAILY #90 tabs 03/22/22 04/23/25 04/22/25 19:00 Rx apixaban 5 mg tablet (Eliquis) 5 mg PO BID 04/01/25 04/23/25 04/23/25 08:00 History ferrous sulfate 325 mg (65 mg 325 mg PO DAILY 04/01/25 04/23/25 04/22/25 18:00 History iron) tablet (FeroSul) tamsulosin 0.4 mg capsule 0.4 mg PO DAILY 04/01/25 04/23/25 04/23/25 09:00 History aspirin 81 mg capsule 81 mg PO DAILY #30 caps 04/02/25 04/23/25 04/23/25 08:00 Rx budesonide 0.5 mg/2 mL suspension 0.5 mg (2 mL) inhalation 04/08/25 04/23/25 04/23/25 09:00 Rx for nebulization BID.RESPIRATORY #60 mL furosemide 20 mg tablet (Lasix) 20 mg PO QAM PRN weight gain #20 10/16/25 10/31/25 10/31/25 Rx tabs ipratropium bromide 0.02 % 0.5 mg (2.5 mL) inhalation Q8H 04/08/25 04/23/25 04/23/25 08:00 Rx solution for inhalation #150 mL levofloxacin 750 mg tablet 750 mg PO DAILY@0600 #3 tabs 04/08/25 04/23/25 04/22/25 Rx metoprolol tartrate 25 mg tablet 12.5 mg (1/2 x 25 mg) PO 04/08/25 04/23/25 04/23/25 08:00 Rx BID@0900,2100 30 days #30 tabs midodrine 5 mg tablet 5 mg PO TID 30 days #90 tabs 04/08/25 04/23/25 04/23/25 09:00 Rx pantoprazole 40 mg tablet,delayed 40 mg PO DAILY #30 tabs 04/08/25 04/23/25 04/22/25 18:00 Rx release prednisone 10 mg tablet See Taper PO DIRECTED #42 tabs 04/08/25 04/23/25 04/23/25 09:00 Rx Allergies Allergy/AdvReac Type Severity Reaction Status Date / Time adhesive Allergy Unknown Verified 04/23/25 13:03 PFSH Acute PFSH: Medical History (Updated 04/23/25 @ 22:17 by Tyson Watters MD) Acute on chronic hypoxic respiratory failure Heart failure Afib COPD (chronic obstructive pulmonary disease) GERD (gastroesophageal reflux disease) [place] (hard of hearing) CAD (coronary artery disease) Hx of myocardial infarction Hyperlipidemia Depression Hypertension Surgical History Hx of CABG Hx of appendectomy Hx of heart artery stent Family History Father No problems noted. Mother Cancer stomach Social History Smoking and tobacco/nicotine status: current every day tobacco/nicotine user cigarettes [ Other cigarette details: 2 to 3 packs a week] Alcohol intake: current Alcohol intake frequency: few times a month Vitals/I&O/Wt Last Vital Signs Temp 97.3 F L 04/23/25 20:30 Pulse 99 04/23/25 20:30 Resp 26 H 04/23/25 20:30 BP 93/62 04/23/25 20:30 Pulse Ox 95 04/23/25 20:30 O2 Del Method Room Air 04/23/25 20:30 O2 Flow Rate 2 04/23/25 12:51 Weight last 48 hrs Weight 77.9 kg Weight 81.647 kg Physical Exam Narrative: General: Alert and oriented, sitting comfortably with 2 L oxygen through nasal cannula and able to speak in full sentences HEENT: Normocephalic, atraumatic, grossly unremarkable exam Cardio: normal rate rhythm, normal S1-S2 without any murmurs, JVD normal Respiratory: Bilateral equal air entry with bilateral inspiratory crackles up to mid zone with mild wheezes GI: Abdomen soft, nontender, nondistended, normoactive bowel sounds present all 4 quadrants, Neuro: intact cranial nerves motor and sensory and cerebellar/coordination function without any focal neurological deficit Behavior: Appropriate and cooperative Extremities: Adequate palpable pulses, bilateral pitting pedal edema Data 04/23/25 13:05 04/23/25 13:05 A&P Assessment and plan 1. Acute on chronic hypoxic respiratory failure: Patient found to have high proBNP around 10,000, delta Trope were not significantly raised, EKG reviewed Recent echo showed ejection fraction of 40 to 45% Patient compliant to his medication, and may need to adjust his diuretics as inpatient and later to follow as outpatient Home medication reconciled and to resume aspirin and atorvastatin To initiate 40 mg Lasix IV twice daily If the blood pressure is less than 100 systolic and to hold any blood pressure lowering medications, Lasix, beta-blockers and tamsulosin Insert Mendoza's cath for adequate intake and output monitoring, the patient agreed for it since it may cause a disturbance in his sleep due to frequent urination, Monitor renal function will transfer intake and output Daily weight base analysis 2. Acute on chronic heart failure with reduced ejection fraction (HFrEF, <= 40%) and combined systolic and diastolic dysfunction: Plan as mentioned above 3. Afib: Continue on aspirin and Eliquis as per home dose 4. Chronic obstructive pulmonary disease, unspecified COPD type: Patient not having any features of COPD exacerbation at the moment Continue treatment with ipratropium, budesonide and lev albuterol Oxygen therapy as per protocol 5. GERD (gastroesophageal reflux disease): PPI daily 6. Hyperlipidemia: Continue home dose statins 7. Transaminitis: Could be related to congestive hepatomegaly Ultrasound liver and to follow liver functions 8. Hypotension: Patient started on diuretics Blood pressure can be on the soft side, patient on home dose midodrine 5 mg 3 times daily To increase the dose of midodrine to 10 mg 3 times daily Monitor blood pressure Plan: VTE: Intermittent compression devices. Patient platelets are low Diet: Cardiac PDMP PDMP Reviewed: Not Reviewed Attestations Medical Necessity Statement*: Patient will stay overnight for management of his acute congestive heart failure leading to hypoxic respiratory failure and features of fluid overload Time Spent in Patient Care: 16 - 35 minutes (>than 50% of time spent in counselling and/or direct pt care on unit). Other Attestations: Patient condition has been discussed at length with the patient/family, I have independently reviewed the chart labs imaging/diagnostics/EKG. the goals of care and code status with the patient/family/NOK/legal tax compliance representative, and documented accordingly. The management has been done according to the current clinical condition with respect to patient goals of care and based on recommendations/guidelines. The patient/family has been informed about the current condition and further plan of care. Agreed with the plan of care and understood without any language barrier. Every effort was made to ensure accuracy of chemical supervisor. Any obvious errors or omissions should be clarified with the author of the document. Coding Level of Care Code 17363 Diagnoses Acute on chronic hypoxic respiratory failure J96.21 Acute on chronic heart failure with reduced ejection fraction (HFrEF, <= 40%) and combined systolic and diastolic dysfunction I50.43 Afib I48.91 Chronic obstructive pulmonary disease, unspecified COPD type J44.9 COPD type: unspecified COPD GERD (gastroesophageal reflux disease) K21.9 Hyperlipidemia E78.5 Transaminitis R74.01 Hypotension I95.9
--- NOTE | 2025-04-23 22:56 | PC.NURSE ---
Per hold 40mg IVP lasix if systolic blood pressure is less than 100.
[2025-04-24] VITALS (15 sets, daily range): BP systolic 88–134; BP diastolic 55–70; PULSE 77–109; RESP 12–26; TEMP 35.9–36.8; O2SAT 91–99; BMI 23.8
[2025-04-24 03:28] LABS: Hematocrit 33.8 % (37-53); Hemoglobin 10.70 g/dL (11.27-16.99); Mean Corpuscular HGB Conc 31.7 g/dL (30-55); Mean Corpuscular Hemoglobin 29.5 pg (27-33); Mean Corpuscular Volume 93.1 fl (82-101); Nucleated Red Blood Cells % 0 %; Platelet Count 67 10^3/cmm (157-399); Red Blood Count 3.63 10^6/uL (3.85-5.65); White Blood Count 6.41 10^3/uL (3.29-11.43)
[2025-04-24 03:44] LABS: Alanine Aminotransferase 109 U/L (0-41); Albumin Level 3.0 g/dL (3.5-5.2); Alkaline Phosphatase 150 U/L (40-130); Anion Gap 10.5 (5-19); Aspartate Amino Transferase 46 U/L (0-40); Blood Urea Nitrogen 22 mg/dL (8-23); Calcium 8.3 mg/dL (8.5-10.5); Carbon Dioxide 27 mmol/L (22-29); Chloride 101 mmol/L (98-107); Globulin 1.5 g/dL (1.3-4.6); Glucose 99 mg/dL (65-115); Osmolality Calculated 283 mOsm/kg (285-295); Potassium 3.5 mmol/L (3.5-5.1); Sodium 135 mmol/L (136-145); Total Protein 4.5 g/dL (6.6-8.7)
--- OUTSIDE RECORDS SUMMARY | 2025-04-24 07:48 | XMS_ITS | Clinical Summary ---
Author Organization [email or web address] [facility] Address [address] [place]: Epic Prelude ADT LUCIO SALAZAR [id number] Care Team Providers Care Appointment Manager Name Role Phone Unavailable Primary Care Provider Unavailabl e Social History Tobacco Use Types Packs/Day Years Used Date Smoking Tobacco: Never Assessed Sex and Gender Information Value Date Recorded Sex Assigned at Not on file Legal Sex Male 4:02 AM [employer] Gender Identity Not on file Sexual Orientation [...]
--- OUTSIDE RECORDS SUMMARY | 2025-04-24 07:48 | XMS_ITS | Clinical Summary ---
Author Organization [facility] Administrative Offices Address [address] [place] [address] Care Team Providers Care Captain Airline Pilot Name Role Phone Unavailable Primary Care Provider [...] 02/03/2025 Chronic combined systolic and diastolic CHF, [facility] A class 2 02/03/2025 NYHA class 3 [...] PSA, less than 10 ng/ml 03/05/2024 Athscl [place] arteries of extrm w intrmt mark, bi legs 02/04/2023 Tobacco use 11/14/2022 Resolved Problems Problem Noted Date Diagnosed Date Resolved Date Acute respiratory insufficie ncy, postoperative 08/04/2024 08/11/2024 Acute coronary syndrome 07/24/202401/22 Abnormal stress test 07/24/2024 025 Encounters Date Type Department Care Team Description 04/16/[address] [address] Kiya York, ROAD REPAIRER 03/30/2025 External Device Data STL ABSTRACTION Provider, Abstract 03/10/2025 1:30 PM CDT Nurse Only [place] [address] [facility] [address] [place] [phone] Juarez Clements MD Sick sinus syndrome (CMS/HCC) (Primary Dx); Atrial fibrillation, unspecified type (CMS/HCC); Ischemic dilated cardiomyopathy (CMS/HCC); Automatic implantable cardioverter-defibril lator in situ 03/08/2025 Telephone [facility] [address] [address] Willie Byrne MD Needs Appointment 03/05/2025 10:15 AM CDT Office Visit [facility] [address] [facility] [address] [place] [phone] Hung Lorenzo MD 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 (Primary Dx); S/P CABG (coronary artery bypass graft) 03/02/2025 External Device Data STL ABSTRACTION Provider, Abstract 03/02/2025 External Device Data STL ABSTRACTION Provider, Abstract 03/02/2025 External Device Data STL ABSTRACTION Provider, Abstract 03/01/2025 Refill [facility] [address] [address] Raiza Nesbitt FNP 03/01/2025 Telephone [facility] [address] [address] Willie Byrne MD Ed Follow-up 02/27/2025 5:02 PM CDT - 02/27/2025 7:45 PM CDT Emergency [facility] Emergency Department [address] [place] [address] Naveen Morin MD Shortness of breath (Primary Dx); COPD with exacerbation ([facility]) Discharge Disposition: Home or Self Care 02/27/2025 Travel 02/24/2025 External Device Data STL ABSTRACTION Provider, Abstract 02/11/2025 1:45 PM CDT Anesthesia Event [facility] Cardiac Change House Attendant Critical access hospital[address] [place] [address] Yaniv Bojorquez II, 02/11/2025 12:00 PM CDT - 02/11/2025 1:09 PM CDT Surgery [facility] Cardiac Change House Attendant Critical access hospital[address] [place] [address] Juarez Clements MD ICD Insertion 02/11/2025 10:09 AM CDT - 02/11/2025 5:25 PM CDT Hospital Encounter [facility] Recovery [address] [place] [address] Juarez Clements MD NYHA class 3 acute on chronic systolic heart failure Discharge Disposition: Home or Self Care 02/09/2025 External Device Data STL ABSTRACTION Provider, Abstract 02/03/2025 11:00 AM CDT Office Visit [place] [address] [place] [phone] Juarez Clements MD Ischemic dilated cardiomyopathy (CMS/HCC) (Primary Dx); Essential hypertension; Mixed hyperlipidemia; PAF (paroxysmal atrial fibrillation) (CMS/HCC); S/P CABG x 3; Sinus bradycardia; Status post coronary artery bypass graft; Status post ligation of left atrial appendage; ASHD (arteriosclerotic heart disease); Chronic anticoagulation; Chronic combined systolic and diastolic CHF, NYHA class 2 ([facility]/HCC) 02/03/2025 Telephone [place] [address] [place] [phone] Hung Lorenzo MD Follow Up 02/03/2025 Prep for Surgery [place] [address] [place] [phone] Juarez Clements MD Ischemic dilated cardiomyopathy (CMS/HCC) (Primary Dx); NYHA class 3 acute on chronic systolic heart failure (CMS/HCC) 02/03/2025 Telephone [place] [address] [place] [phone] Juarez Clements MD Procedure 02/02/2025 Telephone [place] [address] [place] [phone] Catherine Paul NP Needs Form Or Letter Filled Out; Information (Will have Catherine DE LA PAZ sign/Zoll forms. 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 Gender Identity Not on file Sexual [...] st Contact Info) Description 05/07/2025 8:15 AM SAWMILL MOULDER OPERATOR Appointment [facility] MRI [address] [place] [address] Catherine Paul, LABOR RELATIONS TEACHER [address] [facility] [address] [place] [address] 05/28/2025 9:20 AM SAWMILL MOULDER OPERATOR Office Visit [facility] [address] [facility] [address] [place] [phone] Catherine Paul, JESUS [address] [facility] [address] [place] [address] 08/11/2025 2:00 PM SAWMILL MOULDER OPERATOR Office Visit [facility] [address] [place] [address] Juarez Clements MD [address] [facility] [address] [place] [phone] Geovanna Scherer NP [address] [facility] [address] [place] [address] Health Maintenance Due Date Last [...] Q 1 year 11/14/2023 11/13/2022 Medicare Advantage ([place]) Prev entative Visit/Annual Wellness Visit 06/24/2024 INFLUENZA VACCINE (#1) 2025 04/06/2024 Medical Devices Implanted Type Area Portrait Painter Device Identifier Shelf Expiration Date Model / Serial / Lot Atriclip Flex-V Claudia Exclusion 45mm Achv45 - [id number] Implanted:Qty : 1 on 08/04/2024 by Jesus Manuel Newton MD at [facility] Cardiovascular Device N/A: Chest ATRICURE INC [id number] 05/24/2027 [id number] / / [id number] Clip Ligating Horizon Red 993137 - Csc - [id number] Implanted:Qty : 1 on 08/04/2024 by Jesus Manuel Newton MD at [facility] Clip N/A: Chest TELEFLEX INC [id number] 04/23/2029 / / [id number] Clip Ligating Horizon Red 911762 - Csc - [id number] Implanted:Qty : 1 on 08/04/2024 by Jesus Manuel Newton MD at [facility] Clip N/A: Chest TELEFLEX INC [id number] 04/23/2029 / / [id number] Clip Ligating Horizon Red 615982 - Csc - [id number] Implanted:Qty : 1 on 08/04/2024 by Jesus Manuel Newton MD at [facility] Clip N/A: Chest TELEFLEX INC [id number] 04/23/2029 / / [id number] Clip Ligating Horizon Lrg Ti 10.07x12.38mm [id number] - [facility] - [id number] Implanted:Qty : 1 on 08/06/2024 by Jesus Manuel Newton MD at [facility] Clip N/A: Neck TELEFLEX- WECK CLOSURE SYS 08/25/2028112646 / / [id number] Clip Ligating Horizon Lrg Ti 10.07x12.38mm 923056 - Csc - [id number] Implanted:Qty : 1 on 08/06/2024 by Jesus Manuel Newton MD at [facility] Clip N/A: Neck TELEFLEX- WECK CLOSURE SYS 08/25/2028287253 / / [id number] Dev Closure Angioseal 6fr Vip 727633 - [id number] Implanted:Qty : 1 on 02/04/2023 at [facility] Closure Device Left: Groin [facility] [employer] 11/22/2023 139121 / / [id number] Defib Icd Shoals Xt Mri [id number] Df4 Dual Chmbr Surescan [id number] - [id number] Implanted:Qty : 1 on 02/11/2025 by Juarez Clements MD at [facility] Defibrillator Left: Chest Wall MEDTRONIC- CARD RHYTHM MGMT [id number] 05/21/2026 [id number] / [id number] / Graft Vasc Hemashield Gold Knit 005490 - [id number] Implanted:Qty : 1 on 08/04/2024 by Jesus Manuel Newton MD at [facility] Graft N/A: Chest GETINGE [employer] INC [id number] 05/23/2028 [id number] / [id number] / [id number] Orthostat 2.0gm Os-201 - [id number] Implanted:Qty : 1 on 08/04/2024 by Jesus Manuel Newton MD at [facility] Hemostatic N/A: Chest ORTHOCON, INC [id number] 03/23/2027 OS- Orthostat 2.0gm Os-201 - [id number] Implanted:Qty : 1 on 08/04/2024 by Jesus Manuel Newton MD at [facility] Hemostatic N/A: Chest ORTHOCON, INC [id number] 03/23/2027 OS- Lead Pacing Capsure Fix Novus 52cm 120432 - [facility] - [id number] Implanted:Qty : 1 on 02/11/2025 by Juarez Clements MD at [facility] Lead Left: Chest Wall MEDTRONIC- CRM - BULK BUY [id number] 11/06/2026 [id number] / [id number] / Lead Sprint Quattro Secure 62cm [id number] - [facility] - [id number] Implanted:Qty : 1 on 02/11/2025 by Juarez Clements MD at [facility] Lead Left: Chest Wall MEDTRONIC- CRM - BULK BUY [id number] 12/03/2026 [id number] / [id number] 15V / Adh Bioglue 10ml Gh9674-0-Sw - [id number] Implanted:Qty : 1 on 08/04/2024 by Jesus Manuel Newton MD at [facility] Sealant N/A: Chest ARTIVION (FKA CRYOLIFE) [id number] 09/20/2025 OD4048- 5-US / / [id number] Stent Lifestent 5fr [id number] 135cm [id number] - [id number] Implanted:Qty : 1 on 02/04/2023 at [facility] Stent Right: Leg BARD CAROLYNN VASC 02/02/2025 [id number] 3CS / / [id number] Plt Bone H Concave 6h Nst Lf Implanted:Qty : 1 on 08/04/2024 by Jesus Manuel Newton MD at [facility] N/A: Chest MIREYA BIOMET 115.602 .06 / / Plt Bone H Concave 6h Nst Lf Implanted:Qty : 1 on 08/04/2024 by Jesus Manuel Newton MD at [facility] N/A: Chest MIREYA BIOMET 115.602 .06 / / Sternalock Ez 16 Mm Screw Implanted:Qty : 1 on 08/04/2024 by Jesus Manuel Newton MD at [facility] N/A: Chest ZIMMERB IOMET-1 00.035. 16 / / Sternalock Ez 16 Mm Screw Implanted:Qty : 1 on 08/04/2024 by Jesus Manuel Newton MD at [facility] N/A: Chest ZIMMERB IOMET-1 00.035. 16 / / Sternalock Ez 16 Mm Screw Implanted:Qty : 1 on 08/04/2024 by Jesus Maunel Newton MD at [facility] N/A: Chest ZIMMERB IOMET-1 00.035. 16 / / Sternalock Ez 16 Mm Screw Implanted:Qty : 1 on 08/04/2024 by Jesus Manuel Newton MD at [facility] N/A: Chest ZIMMERB IOMET-1 00.035. 16 / / Sternalock Ez 16 Mm Screw Implanted:Qty : 1 on 08/04/2024 by Jesus Manuel Newton MD at [facility] N/A: Chest ZIMMERB IOMET-1 00.035. 16 / / Sternalock Ez 16 Mm Screw Implanted:Qty : 1 on 08/04/2024 by Jesus Manuel Newton MD at [facility] N/A: Chest ZIMMERB IOMET-1 00.035. 16 / / Sternalock Ez 16 Mm Screw Implanted:Qty : 1 on 08/04/2024 by Jesus Manuel Newton MD at [facility] N/A: Chest ZIMMERB IOMET-1 00.035. 16 / / Sternalock Ez 16 Mm Screw Implanted:Qty : 1 on 08/04/2024 by Jesus Manuel Newton MD at [facility] N/A: Chest ZIMMERB IOMET-1 00.035. 16 / / Sternalock Ez 16 Mm Screw Implanted:Qty : 1 on 08/04/2024 by Jesus Manuel Newton MD at [facility] N/A: Chest ZIMMERB IOMET-1 00.035. 16 / / Sternalock Ez 16 Mm Screw Implanted:Qty : 1 on 08/04/2024 by Jesus Manuel Newton MD at [facility] N/A: Chest ZIMMERB IOMET-1 00.035. 16 / / Sternalock Ez 16 Mm Screw Implanted:Qty : 1 on 08/04/2024 by Jesus Manuel Newton MD at [facility] N/A: Chest ZIMMERB IOMET-1 00.035. 16 / / Screw Bone 18mm Lck Nst Lf Implanted:Qty : 1 on 08/04/2024 by Jesus Manuel Newton MD at [facility] N/A: Chest MIREYA BIOMET 100.035 .18 / / Screw Bone 18mm Lck Nst Lf Implanted:Qty : 1 on 08/04/2024 by Jesus Manuel Newton MD at [facility] N/A: Chest MIREYA BIOMET 100.035 .18 / / Screw Bone 18mm Lck Nst Lf Implanted:Qty : 1 on 08/04/2024 by Jesus Manuel Newton MD at [facility] N/A: Chest MIREYA BIOMET 100.035 .18 / / Screw Bone 18mm Lck Nst Lf Implanted:Qty : 1 on 08/04/2024 by Jesus Manuel Newton MD at [facility] N/A: Chest MIREYA BIOMET 100.035 .18 / / Screw Bone 18mm Lck Nst Lf Implanted:Qty : 1 on 08/04/2024 by Jesus Manuel Newton MD at [facility] N/A: Chest MIREYA BIOMET 100.035 .18 / / Screw Bone 18mm Lck Nst Lf Implanted:Qty : 1 on 08/04/2024 by Jesus Manuel Newton MD at [facility] N/A: Chest MIREYA BIOMET 100.035 .18 / / Screw Bone 16mm Lck Nst Lf Implanted:Qty : 1 on 08/04/2024 by Jesus Manuel Newton MD at [facility] N/A: Chest MIREYA BIOMET 100.035 .16 / / Procedures Procedure Name Priority Date/Time Associated Diagnosis Comments NH PROGRAM EVAL IMPLANT DEVICE,CARDVERT/DEF IB,2 LEAD WITHIN [...] WITH DIFFERENTIAL Routine 02/11/2025 10:57 AM CDT NH ECG ROUTINE ECG W/LEAST 12 LDS W/I&R Routine 02/03/2025 11:02 AM CDT Sinus bradycardia 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 S/P CABG (coronary artery bypass graft) Referral of patient OCCULT BLOOD IMMUNOASSAY, COLORECTAL SCREEN Routine 11/13/2022 12:00 AM CDT Encounter for colorectal cancer screening from Last 3 Months or Most Recently Relevant to Health Maintenance Results * NH PROGRAM EVAL IMPLANT DEVICE,CARDVERT/DEFIB,2 LEAD WITHIN GLOBAL (03/10/2025 2:03 PM CDT) Narrative [facility] CARD[facility] - 03/10/2025 2:03 PM CDT [...] care, arm restrictions and recommended follow up. [facility]. [facility] Patient verbalized understanding of all instructions. F/U with EP office in 3 months. See attached report for details. Procedure Note Elav Alvarez RN - 03/10/2025 2:03 PM CDT [...] incision care, arm restrictions and recommendedfollow up. [facility] f/u reviewed. [facility].Patient verbalized understanding of all instructions. F/U with EP officein 3 months. See attached report for details. Juarez Clements MD CARDIAC SERVICES ORDERA BLES Final Result [facility] [address] [place] [address] * (ABNORMAL) TROPONIN 2 HR, 5TH GEN (02/27/2025 5:22 PM CDT) TROPONIN T, 2 HR 5TH GEN 74(H) <=15 ng/L 02/27/2025 6:23 PM CDT [facility] - [place] 2HR TROPONIN T -5 See Interp. 02/27/2025 6:23 PM CDT [facility] Blood Venipuncture / Unknown 02/27/2025 5:22 PM CDT 02/27/2025 5:53 PM CDT Narrative [facility] - 02/27/2025 6:23 PM CDT Troponin elevated. Delta indeterminate. Delay in collection of timed specimen beyond recommended collection interval. Results must be interpreted in clinical context. us Shilpa Vaz APRN CHEMISTRY ORDERABLES Lady l Result Performing Organization Address [facility]/ZIP Co de Phone Number [facility] CLIA # [id number] [address] [address] * (ABNORMAL) BRAIN NATRIURETIC PEPTIDE, BNP OR PROBNP (02/27/2025 5:22 PM CDT) PROBNP, N TERMINAL 6,837(H) 0 - 125 pg/mL 02/27/2025 6:33 PM CDT [facility] Comment: INTERPRETIVE COMMENT based on diagnosis: Diagnostic [...] ORDERABLES Final Re sult Performing Organization Address [facility]/ZIP Co de Phone Number [facility] CLIA # [id number] [address] [address] [place] [address] * XR CHEST PA OR AP 1 [...] 79(H) <=15 ng/L 02/27/2025 3:33 PM CDT [facility] Blood Venipuncture / Unknown 02/27/2025 2:57 PM CDT 02/27/2025 3:03 PM CDT Narrative [facility] LABORATORY [facility] - 02/27/2025 3:33 PM CDT Troponin elevated. Shilpa Yaniv Татьяна BILLING ASSOCIATE CHEMISTRY ORDERABLES Lady l Result [facility] CLIA # [id number] [address] [address] [place] [address] * (ABNORMAL) CBC WITH DIFFERENTIAL (02/27/2025 2:57 PM CDT) Only the most recent of2 resultswithin the time period is included. [facility] WBC 7.1 4.8 - 10.8 K/uL 02/27/2025 3:06 PM CDT [facility] RBC 4.51(L) 4.60 - 6.20 M/uL 02/27/2025 3:06 PM CDT [facility] HEMOGLOBIN 12.6(L) 14.0 - 18.0 g/dL 02/27/2025 3:06 PM CDT [facility] HEMATOCRIT 39.7(L) 41.0 - 53.0 % 02/27/2025 3:06 PM CDT [facility] MCV 88.0 84.0 - 103.0 fL 02/27/2025 3:06 PM CDT [facility] MCH 27.9 27.0 - 34.0 pg 02/27/2025 3:06 PM CDT [facility] MCHC 31.7 30.0 - 35.0 g/dL 02/27/2025 3:06 PM CDT [facility] PLATELETS 181 140 - 440 K/uL 02/27/2025 3:06 PM [facility] MPV 10.6 8.9 - 12.8 fL 02/27/2025 3:06 PM [facility] RDW 15.6(H) 11.0 - 14.5 % 02/27/2025 3:06 PM [facility] RDW-STDEV 49.0 37.0 - 54.0 fL 02/27/2025 3:06 PM [facility] NEUTROPHILS 73 42 - 75 % 02/27/2025 3:06 PM CDT [facility] LYMPHOCYTES 16(L) 24 - 44 % 02/27/2025 3:06 PM CDT [facility] MONOCYTES 8 2 - 10 % 02/27/2025 3:06 PM CDT [facility] EOSINOPHILS 2 0 - 7 % 02/27/2025 3:06 PM CDT [facility] BASOPHILS 1 0 - 1 % 02/27/2025 3:06 PM CDT [facility] IMMATURE GRANULOCYTES 0 0 - 2 % 02/27/2025 3:06 PM CDT [facility] NEUTROPHIL ABSOLUTE 5.18 2.00 - 8.00 K/uL 02/27/2025 3:06 PM CDT [facility] LYMPHOCYTE ABSOLUTE 1.11(L) 1.20 - 4.00 K/uL 02/27/2025 3:06 PM CDT [facility] MONOCYTE ABSOLUTE 0.57 0.10 - 0.60 K/uL 02/27/2025 3:06 PM CDT [facility] EOSINOPHIL ABSOLUTE 0.13 0.00 - 0.70 K/uL 02/27/2025 3:06 PM CDT [facility] BASOPHILS ABSOLUTE 0.04 0.00 - 0.20 K/uL 02/27/2025 3:06 PM CDT [facility] IMMATURE GRANULOCYTES ABSOLUTE 0.03 0.00 - 0.10 K/uL 02/27/2025 3:06 PM CDT [facility] SMEAR REVIEWED: NA - Not Applicable 02/27/2025 3:06 PM CDT [facility] Blood Venipuncture / Unknown 02/27/2025 2:57 PM CDT 02/27/2025 3:03 PM CDT us Shilpa Vaz BILLING ASSOCIATE HEMATOLOGY ORDERABLES Fin al Result [facility] CLIA # [id number] Critical access hospital[address] [address] [place] [address] * MAGNESIUM LEVEL (02/27/2025 2:57 PM CDT) MAGNESIUM 2.3 1.6 - 2.4 mg/dL 02/27/2025 3:43 PM CDT [facility] Blood Venipuncture / Unknown 02/27/2025 2:57 PM CDT 02/27/2025 3:03 PM CDT Shilpa Vaz APRN CHEMISTRY ORDERABLES Lady l Result [facility] CLIA # [id number] [address] [place] [address] * (ABNORMAL) COMPREHENSIVE METABOLIC PANEL (02/27/2025 2:57 PM CDT) Pathologist [facility] SODIUM 138 136 - 145 mmol/L 02/27/2025 3:43 PM CDT [facility] POTASSIUM 4.6 3.5 - 5.1 mmol/L 02/27/2025 3:43 PM CDT [facility] CHLORIDE 102 98 - 107 mmol/L 02/27/2025 3:43 PM CDT [facility] CO2 25 22 - 29 mmol/L 02/27/2025 3:43 PM CDT [facility] CALCIUM 9.4 8.8 - 10.2 mg/dL 02/27/2025 3:43 PM CDT [facility] BUN 14 8 - 23 mg/dL 02/27/2025 3:43 PM CDT [facility] CREATININE 0.85 0.67 - 1.17 mg/dL 02/27/2025 3:43 PM CDT [facility] Comment:The GFR result is no t clinically significant on patients <18 or >70 years of age. GLUCOSE 93 74 - 99 mg/dL 02/27/2025 3:43 PM CDT [facility] TOTAL PROTEIN 6.7 6.4 - 8.3 g/dL 02/27/2025 3:43 PM CDT [facility] ALBUMIN 3.8 3.5 - 5.2 g/dL 02/27/2025 3:43 PM CDT [facility] BILIRUBIN TOTAL 0.9 0.0 - 1.0 mg/dL 02/27/2025 3:43 PM CDT [facility] ALKALINE PHOSPHATASE 146(H) 40 - 129 U/L 02/27/2025 3:43 PM CDT [facility] AST 27 10 - 50 U/L 02/27/2025 3:43 PM CDT [facility] ALT 19 <=50 U/L 02/27/2025 3:43 PM CDT [facility] GFR >60 mL/min/1.7 3 sq meter 02/27/2025 3:43 PM CDT [facility] Comment:eGFR calculated with 2020 CKD-EPI equation. Vegetarian diet, extremely high or low muscle mass, and may affect results. Cystatin C with Glomerular Filtration Rate is a suitable alternative for these patients. ANION GAP 11 9 - 20 mmol/L 02/27/2025 3:43 PM CDT [facility] Blood Venipuncture / Unknown 02/27/2025 2:57 PM CDT 02/27/2025 3:03 PM CDT Shilpa Vaz BILLING ASSOCIATE CHEMISTRY ORDERABLES Lady l Result [facility] CLIA # [id number] [address] [address] * EKG 12-LEAD (02/27/2025 2:44 PM CDT) Only the most recent of3 resultswithin the time period is included. 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: [id number] : 1950 Requested By: Order Number: [id number] Reading : Joseline Butts Measurements Intervals [place] Rate: 102 P: 74 NH: 172 QRS: 100 QRSD: 96 T: 240 QT: 372 QTc: 484 Interpretive Statements Sinus tachycardia Septal infarct, age undetermined Lateral infarct, age undetermined ST & T wave abnormality, consider inferior ischemia Abnormal ECG Electronically Signed On 02-28-2025 13:12:48 CDT by Joseline Butts Procedure Note Provider, Historical - 02/28/[address] [address] Test Date: 2025-02-27 Pat Name: SHILPA DAHL Department: 11 Room: Gender: Male Densitometrist: [id number] : 1950 Requested By: Order Number: [id number] Dandy COTTO: Joseline Butts Measurements Intervals [place] Rate: 102 P: 74 NH: 172 QRS: 100 QRSD: 96 T: 240 QT: 372 QTc: 484 Interpretive Statements Sinus tachycardia Septal infarct, age undetermined Lateral infarct, age undetermined ST & T wave abnormality, consider inferior ischemia Abnormal ECG Electronically Signed On 02-28-2025 13:12:48 CDT by Joseline Butts us Naveen Morin MD ECG ORDERABLES Final Result Performing Organization Address City/State/[facility] Co de Phone Number INTERFACE SYSTEM [...] W ANES (02/11/2025 2:32 PM CDT) Narrative [facility] - 02/11/2025 2:41 PM CDT Summary: 1. Successful Dual Chamber ICD Implant (MRI Compatible) Estimated Blood Loss There was minimal blood loss during procedure. Procedure Details [facility] Clinical Cardiac Electrophysiology Device Report Procedures: 1. Medtronic Dual Chamber ICD Implant 2. Contrast Venography 3. Left Subclavian Vein Access 4. Device Interrogation 5. Conscious Sedation (performed by Anesthesia) 6. Fluoroscopy with Interpretation Operators: 1. Juarez Clements MD, [facility], [facility] - Clinical Cardiac Electrophysiology Indication: 74 [...] = < 30 cc. Device Model: Medtronic Sho[place] XT DR MRI SureIamukund [id number]/[id number] ATRIAL Lead: EDSON [id number] Pacing Threshold: 0.5V @ 0.4ms Impedance: 551 ohms P wave: 2.0 mV RIGHT VENTRICULAR Lead: EDSON 6935M/[id number] Pacing Threshold: 0.5V @ 0.4ms Impedance: 570 ohms R wave: 9.5 mV Complications: None Summary: 1. Successful Dual Chamber ICD Implant (MRI Compatible) Juarez Clements MD, [facility], [facility] Clinical Cardiac Electrophysiology Manager Manufacturing of Clinical Medicine [facility] Procedural Indications 74 y/o WM with h/o IDCM, CAD, NYHA Class III HF, PAF, SSS, and EF < 35% despite OMT > 3 months presents for a dual chamber ICD for primary prevention and sick sinus syndrome. Juarez Clements MD CUP EP ORDERABLES Final Result [facility] CLIA [id number] [address] [facility] [address] [place] [id number], * PROTIME-INR (02/11/2025 10:57 AM CDT) PROTIME 13.9 12.7 - 14.9 Seconds 02/11/2025 11:13 AM CDT [facility] INR 1.0 0.8 - 1.2 02/11/2025 11:13 AM CDT [facility] Blood Venipuncture / Unknown 02/11/2025 10:57 AM CDT 02/11/2025 10:59 AM CDT Narrative [facility] - 02/11/2025 11:13 AM CDT Expected Values for INR: DVT/PE Goal INR 2.5; range 2.0 - 3.0 Valve Replacement Tissue Goal INR 2.5; range 2.0 - 3.0 Valve Replacement Mechanical Goal INR 3.0; range 2.5 - 3.5 POST-AR Goal INR 2.5; range 2.0 - 3.0 or Goal INR 3.0; range 2.5 - 3.5 Atrial Fibrillation Goal INR 2.5; range 2.0 - 3.0 Ischemic Stroke Goal INR 2.5; range 2.0 - 3.0 us Juarez Clements MD HEMATOLOGY ORDERABLES F inal Result [facility] CLIA # [id number] [address] [facility] [place], [place] [address] * BASIC METABOLIC PANEL (02/11/2025 10:57 AM CDT) SODIUM 140 136 - 145 mmol/L 02/11/2025 11:34 AM CDT [facility] POTASSIUM 4.5 3.5 - 5.1 mmol/L 02/11/2025 11:34 AM CDT [facility] CHLORIDE 104 98 - 107 mmol/L 02/11/2025 11:34 AM [facility] CO2 27 22 - 29 mmol/L 02/11/2025 11:34 AM [facility] CALCIUM 9.2 8.8 - 10.2 mg/dL 02/11/2025 11:34 AM T [facility] BUN 19 8 - 23 mg/dL 02/11/2025 11:34 AM [facility] CREATININE 0.89 0.67 - 1.17 mg/dL 02/11/2025 11:34 AM [facility] Comment:The GFR result is no t clinically significant on patients <18 or >70 years of age. GLUCOSE 99 74 - 99 mg/dL 02/11/2025 11:34 AM [facility] GFR >60 mL/min/1.7 3 sq meter 02/11/2025 11:34 AM [facility] Comment:eGFR calculated with 2020 CKD-EPI equation. Vegetarian diet, extremely high or low muscle mass, and may affect results. Cystatin C with Glomerular Filtration Rate is a suitable alternative for these patients. ANION GAP 9 9 - 20 mmol/L 02/11/2025 11:34 AM [facility] Blood Venipuncture / Unknown 02/11/2025 10:57 AM CDT 02/11/2025 10:59 AM CDT Juarez Clements MD CHEMISTRY ORDERABLES Fi nal Result [facility] CLIA # [id number] [address] [place] [id number] * OCCULT BLOOD IMMUNOASSAY, COLORECTAL SCREEN (11/13/2022 12:00 AM CDT) FECAL GLOBIN SEE NOTE [facility] Comment: FECAL GLOBIN BY IMMUNOCHEMISTRY Micro Number: [id number] Test Status: Final Specimen Source: Stool Specimen Quality: Adequate Fecal Globin: Not Detected Test Performed at: [id number] [id number] [address] [place] [id number] Hussein Sherwood MD Stool STOOL SPECIMEN / Unknown 11/13/2022 11/26/2022 12:[address] REPAIRER BODY FLUIDS AND STOOLS Final Result [facility] [phone] [facility] [id number] [address] [phone] from Last 3 Months or Most Recently Relevant to Health Maintenance [place] [facility] Address: [address] [place] [address] Advance Directives For more information, please contact: [phone] * Full Code (Latest Code Status on [...]
--- OUTSIDE RECORDS SUMMARY | 2025-04-24 07:48 | XMS_ITS | Encounter Summary ---
[facility] Organization [facility] Address [address] [place] [address] Care Team Providers Care Compressor Service Technician Name Role Phone Unavailable Primary Care Provider Unavailluis e Encounter Details Date Type Department Care Team (Latest Contact Info) Description 04/26/2005 Outpatient Historical [facility] [address] 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
--- OUTSIDE RECORDS SUMMARY | 2025-04-24 07:48 | XMS_ITS | Encounter Summary ---
Author Organization [facility] Address 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 Gender Identity Not on file Sexual Orientation Not on file documented as of this encounter Miscellaneous Notes * Telephone Encounter - Cary Reeves LPN - 04/16/2025 2:48 PM CDT Medication Refill Request Last Fill Date: 04-16-24 Recent and Future Visits: Recent Visits Date Type Provider Dept 03/05/24 Office Visit Kiya York, YAMILA [facility] Medicine Vendor Showing recent visits within past 540 days [...] st Contact Info) Description 05/07/2025 8:15 AM FREIGHT ASSOCIATE Appointment [facility] MRI [address] [place] [address] Catherine Paul, CROWN ASSEMBLY MACHINE 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 [address] [facility] [address] [place] [address] 05/28/2025 9:20 AM FREIGHT ASSOCIATE Office Visit [facility] [address] [place] [phone] Catherine Paul, JESUS [address], [address] [place] [phone] 08/11/2025 2:00 PM FREIGHT ASSOCIATE Office Visit [facility] [address] [place] [phone] Juarez Clements MD [address] [place] [phone] Geovanna Scherer NP [address], [address] [place] [phone] documented as of this encounter Visit Diagnoses Not on filedocumented in this encounter
--- NOTE | 2025-04-24 10:29 | PC.NURSE ---
Dr. Watters requested this nurse place order for PT/OT during [id number] rounds.
[2025-04-24] MEDS: FUROsemide 10 mg/mL SDV 4mL 40 MG IVP ×2 (10:41→21:55)
[2025-04-24] MEDS: FUROsemide 10 mg/mL SDV 2mL 20 MG IVP (13:46)
--- NOTE | 2025-04-24 14:13 | PC.NURSE ---
Provider is updated that Rober Dahl, he has metoprolol 12.5mg due now but his last two BP;s were 92/63 and 88/65 HR 110. Nursing held. Provider gave no new orders.
--- NOTE | 2025-04-24 14:55 | P.PN_ITS ---
Subjective 2 Subjective: Patient was seen in the morning, The patient feels better and requiring less oxygen and less short of breath on exertion Vitals/I&O/Wt Last Vital Signs Temp 97.7 F 04/24/25 12:00 Pulse 108 H 04/24/25 13:52 Resp 12 04/24/25 12:00 BP 88/55 04/24/25 13:52 Pulse Ox 91 04/24/25 13:52 O2 Del Method Room Air 04/24/25 13:52 O2 Flow Rate 2 04/23/25 12:51 04/23/25 04/24/25 04/24/25 22:59 06:59 14:59 Intake Total 720 / 720 Output Total 600 / 600 0 / 600 1225 / 1225 Balance -600 / -600 0 / -600 -505 / -505 Weight last 48 hrs Weight 77.6 kg Weight 77.9 kg Weight 81.647 kg Physical Exam 2 Narrative: General: Alert and oriented, sitting comfortably without oxygen today without any distress speaking in full sentences with mild cough and wheezing improved than yesterday, the patient looks well HEENT: Normocephalic, atraumatic, grossly unremarkable exam Cardio: normal rate rhythm, normal S1-S2 without any murmurs, JVD normal Respiratory: Bilateral equal air entry with bilateral inspiratory crackles at the bases with mild wheezes relatively better than yesterday GI: Abdomen soft, nontender, nondistended, normoactive bowel sounds present all 4 quadrants, Neuro: intact cranial nerves motor and sensory and cerebellar/coordination function without any focal neurological deficit Behavior: Appropriate and cooperative Extremities: Adequate palpable pulses, bilateral pitting pedal edema Data 04/24/25 03:11 04/24/25 03:11 A&P Assessment and plan 1. Acute on chronic hypoxic respiratory failure: Patient found to have high proBNP around 10,000, delta Trope were not significantly raised, EKG reviewed Recent echo showed ejection fraction of 40 to 45% cardio consulted having soft BP and unable to continue uniformly lasix or beta ketty, low albumin, therefore to give one dose of lasix to raise oncotic pressure for supporting BP and adequate diuresis, and to continue 40 mg Lasix IV twice daily Continue aspirin and atorvastatin If the blood pressure is less than 100 systolic and to hold any blood pressure lowering medications, including Lasix and beta-blockers The patient refused Mendoza's catheter insertion, procedure and counseling provided for adequate monitoring of intake and output, to retry later otherwise to continue monitoring from urinal Monitor renal function will transfer intake and output Patient compliant to his medication, and may need to adjust his diuretics as inpatient and later to follow as outpatient Daily weight base analysis 2. Acute on chronic heart failure with reduced ejection fraction (HFrEF, <= 40%) and combined systolic and diastolic dysfunction: Cardiology on board Continue diuresis along with the support of Lasix to support the blood pressure Midodrine dose increased to 10 mg 3 times daily Aspirin and statin to continue Telemetry monitoring Intake and output monitoring Daily weight analysis 3. Afib: Continue on aspirin and Eliquis as per home dose On beta-blockers, however due to soft blood pressure beta-blockers are held on and off otherwise to continue once the blood pressure is adequate 4. Chronic obstructive pulmonary disease, unspecified COPD type: Patient not having any features of COPD exacerbation at the moment Continue treatment with ipratropium, budesonide and lev albuterol Oxygen therapy as per protocol 5. GERD (gastroesophageal reflux disease): PPI daily 6. Hyperlipidemia: Continue home dose statins 7. Transaminitis: Could be related to congestive hepatomegaly currently improving Ultrasound liver showed coarse hepatic echotexture with possible hepatic steatosis Follow liver enzymes daily 8. Hypotension: Continue midodrine 10 3 times daily 1 dose of albumin to give Monitor blood pressure 9. Encounter for screening involving social determinants of health (SDoH): Patient had multiple recurrent admissions, case management involved. Patient has home health aide as his daughter. Case management involved for possible transfer to SNF/group home for further improvement OT PT evaluation Plan: VTE: Intermittent compression devices. Patient platelets are low Diet: Cardiac PDMP PDMP Reviewed: Not Reviewed Attestations 2 Medical Necessity Statement*: Patient will stay over weekend for adequate diuresis of acute on congestive heart failure and needing case management for his social concerns postdischarge for disposition Time Spent in Patient Care: 16 - 35 minutes (>than 50% of time sp ent in counselling and/or direct pt care on unit) . Other Attestations: Patient condition has been discussed at length with the patient/family, I have independently reviewed the chart labs imaging/diagnostics/EKG. the goals of care and code status with the patient/family/NOK/legal order entry representative, and documented accordingly. The management has been done according to the current clinical condition with respect to patient goals of care and based on recommendations/guidelines. The patient/family has been informed about the current condition and further plan of care. Agreed with the plan of care and understood without any language barrier. Every effort was made to ensure accuracy of soldering machine feeder. Any obvious errors or omissions should be clarified with the author of the document. Coding Level of Care Code 77853 Diagnoses Acute on chronic hypoxic respiratory failure J96.21 Acute on chronic heart failure with reduced ejection fraction (HFrEF, <= 40%) and combined systolic and diastolic dysfunction I50.43 Afib I48.91 Chronic obstructive pulmonary disease, unspecified COPD type J44.9 COPD type: unspecified COPD GERD (gastroesophageal reflux disease) K21.9 Hyperlipidemia E78.5 Transaminitis R74.01 Hypotension I95.9 Encounter for screening involving social determinants of health (SDoH) Z13.9
[2025-04-24] MEDS: albumin 50 G/200 ML BAG 60 G IV (15:32)
--- NOTE | 2025-04-24 15:56 | PC.NURSE ---
Talked with patient about LORENE reedamarilys, bilateral, Patient states I have some at home but I know I could not get them on right now with my legs. I want to take a nap right now so can we worry about that later? Nursing did educate the patient about them and said that we will need to try and wear them to help reduce the edema. Patient states understanding.
[2025-04-24] MEDS: pantoprazole 40 mg SDV IVP (16:46)
[2025-04-24] MEDS: magnesium sulfate premix 2 GM/50 ML PIGGYBACK IV (18:34)
--- NOTE | 2025-04-24 19:30 | PC.NURSE ---
Patient refused to have kelly catheter placed. He is using the urinal.
--- NOTE | 2025-04-24 22:03 | USR_ITS ---
PROCEDURE INFORMATION: Exam: US Abdomen, Limited; Right Upper Quadrant Exam date and time: 04/24/2025 9:18 AM Age: 74 years old Clinical indication: Abnormal findings; Abnormal lab test; Elevated liver enzymes; Prior surgery; Surgery date: 6+ months; Surgery type: Unsure of dates but history of appendectomy; Additional info: Increased liver enzymes and total bili TECHNIQUE: Imaging protocol: Real time ultrasound of the abdomen with image documentation. Limited exam focused on the right upper quadrant. COMPARISON: CT angio chest PE protcl [id number] 04/05/2025 1:48 PM FINDINGS: Pleural spaces: Incidental note of right pleural fluid. Liver: Measures 13.2 cm in length. No discrete mass. Mildly coarsened echotexture. Normal flow directionality in the main portal vein. Suggested pulsatile flow in the main portal vein which could reflect transmitted increased right heart pressures. Gallbladder: No visible gallstones. There is mild gallbladder wall thickening. No significant pericholecystic fluid. Sonographic Judge's sign not reported. Biliary ducts: Nondilated. The common duct measures 0.3 cm. Pancreas: Obscured due to overlying bowel. Right kidney: Measures 10 cm in length. No hydronephrosis or evidence of a solid mass. Intraperitoneal space: Small volume ascites. US/US liver [id number] IMPRESSION: 1. Mild gallbladder wall thickening, nonspecific although could relate to partial contraction or underlying liver disease. 2. Mildly coarsened hepatic echotexture which can be seen in the setting of hepatocellular disease or hepatic steatosis. Please correlate clinically. 3. Incidental note of a right pleural effusion. Small volume ascites.
[2025-04-25] VITALS (16 sets, daily range): BP systolic 82–102; BP diastolic 58–77; PULSE 96–120; RESP 12–25; TEMP 36.2–36.8; O2SAT 88–99
[2025-04-25 03:41] LABS: Hematocrit 31.4 % (37-53); Hemoglobin 10.10 g/dL (11.27-16.99); Mean Corpuscular HGB Conc 32.2 g/dL (30-55); Mean Corpuscular Hemoglobin 29.8 pg (27-33); Mean Corpuscular Volume 92.6 fl (82-101); Nucleated Red Blood Cells % 0 %; Platelet Count 58 10^3/cmm (157-399); Red Blood Count 3.39 10^6/uL (3.85-5.65); White Blood Count 5.71 10^3/uL (3.29-11.43)
[2025-04-25 03:54] LABS: Alanine Aminotransferase 94 U/L (0-41); Albumin Level 3.6 g/dL (3.5-5.2); Alkaline Phosphatase 184 U/L (40-130); Anion Gap 13.0 (5-19); Aspartate Amino Transferase 49 U/L (0-40); Blood Urea Nitrogen 17 mg/dL (8-23); Calcium 8.4 mg/dL (8.5-10.5); Carbon Dioxide 30 mmol/L (22-29); Chloride 99 mmol/L (98-107); Globulin 1.5 g/dL (1.3-4.6); Glucose 116 mg/dL (65-115); Magnesium 2.1 mg/dL (1.7-2.3); Osmolality Calculated 291 mOsm/kg (285-295); Potassium 3.0 mmol/L (3.5-5.1); Sodium 139 mmol/L (136-145); Total Protein 5.1 g/dL (6.6-8.7)
[2025-04-25] MEDS: lidocaine 1% 5 ML in potassium chloride premix 100 ML 52.5 ML IV (09:08)
[2025-04-25] MEDS: FUROsemide 10 mg/mL SDV 2mL 20 MG IVP (10:04)
--- NOTE | 2025-04-25 11:31 | PM.CONSULT ---
Providers/Reason For Consult Consulting Physician/Specialty*: Jim Bowling MD Reason for Consult*: Congestive heart failure Requesting Physician: Tyson Watters MD Attending Physician: Tyson Watters MD Primary Care Provider: YAMILA Almeida History of Present Illness History of Present Illness Philippe Dahl is a 74 year old male with a history of COPD, paroxysmal atrial fibrillation, hypotension, syncope secondary to hypotension, coronary artery disease status post CABG, chronic heart failure with reduced ejection fraction with last ejection fraction of 40 to 45% on echo 04/05/2025, [employer] dual-chamber pacemaker/ICD with last interrogation on 04/08/2025 showing 9 years of battery left, 1.4% A-fib burden and no ventricular tachycardia, who is admitted with shortness of breath and according to the patient a 40 pound weight gain over the past 3 weeks with significant onset of bilateral lower extremity edema. Patient was recently hospitalized for syncope related to hypotension as well as COPD exacerbation. Patient's Jardiance was stopped and he was started on midodrine 5 mg 3 times daily. He was continued on metoprolol 12.5 mg twice daily and was told to take Lasix 40 mg oral as needed for 3 pound weight gain. The patient states he has been taking his home medications. Since admission he has received IV Lasix for diuresis and midodrine has been increased to 10 mg 3 times daily to treat his low blood pressure. Metoprolol has been on hold. The patient states his shortness of breath is starting to improve. Echo 04/01/2025: Moderately increased left ventricular cavity size. Moderately decreased left ventricular systolic function. Left ventricular ejection fraction is estimated at 40 %. There appeared to be mid to distal anterior, septal and apical akinesis with possible LV aneurysm consistent with ischemic heart disease.Grade III/IV diastolic dysfunction (restrictive filling pattern), severely elevated filling pressures. Moderately increased biatrial size. Mildly thickened mitral valve. No mitral valve stenosis. Moderate mitral valve regurgitation. Severe aortic valve calcification. Valve not well visualized therefore cannot comment on hemodynamics There is no pericardial effusion. Limited echo 04/05/2025: Limited echo performed to assess LV systolic function. LV systolic function is mildly reduced with EF of 40-45%. Mild global hypokinesis. Medications/Allergies Home Medications ?Medication ?Instructions ?Recorded ?Confirmed ?Last Taken ?Type atorvastatin 40 mg tablet 40 mg PO DAILY #90 tabs 09/29/22 10/31/25 10/31/25 08:00 Rx citalopram 20 mg tablet 20 mg PO DAILY #90 tabs 03/22/22 04/23/25 04/22/25 19:00 Rx apixaban 5 mg tablet (Eliquis) 5 mg PO BID 04/01/25 04/23/25 04/23/25 08:00 History ferrous sulfate 325 mg (65 mg 325 mg PO DAILY 04/01/25 04/23/25 04/22/25 18:00 History iron) tablet (FeroSul) tamsulosin 0.4 mg capsule 0.4 mg PO DAILY 04/01/25 04/23/25 04/23/25 09:00 History aspirin 81 mg capsule 81 mg PO DAILY #30 caps 04/02/25 04/23/25 04/23/25 08:00 Rx budesonide 0.5 mg/2 mL suspension 0.5 mg (2 mL) inhalation 04/08/25 04/23/25 04/23/25 09:00 Rx for nebulization BID.RESPIRATORY #60 mL furosemide 20 mg tablet (Lasix) 20 mg PO QAM PRN weight gain #20 04/08/25 04/23/25 04/23/25 Rx tabs ipratropium bromide 0.02 % 0.5 mg (2.5 mL) inhalation Q8H 04/08/25 04/23/25 04/23/25 08:00 Rx solution for inhalation #150 mL levofloxacin 750 mg tablet 750 mg PO DAILY@0600 #3 tabs 04/08/25 04/23/25 04/22/25 Rx metoprolol tartrate 25 mg tablet 12.5 mg (1/2 x 25 mg) PO 04/08/25 04/23/25 04/23/25 08:00 Rx BID@0900,2100 30 days #30 tabs midodrine 5 mg tablet 5 mg PO TID 30 days #90 tabs 04/08/25 04/23/25 04/23/25 09:00 Rx pantoprazole 40 mg tablet,delayed 40 mg PO DAILY #30 tabs 04/08/25 04/23/25 04/22/25 18:00 Rx release prednisone 10 mg tablet See Taper PO DIRECTED #42 tabs 1004/23/25 04/23/25 09:00 Rx Allergies Allergy/AdvReac Type Severity Reaction Status Date / Time adhesive Allergy Unknown Verified 04/23/25 13:03 Current Medications Generic Name Dose Route Start Last Admin Trade Name Roe PRN Reason Stop Dose Admin Apixaban 5 mg 04/24/25 05:00 04/25/25 05:21 Apixaban 5 Mg Tablet PO 5 mg BID AYAN Administration Aspirin 81 mg 04/24/25 05:00 04/25/25 05:21 Aspirin 81 Mg Ec Tablet PO 81 mg DAILY AYAN Administration Atorvastatin Calcium 40 mg 04/24/25 05:00 04/25/25 05:21 Atorvastatin 40 Mg Tablet PO 40 mg DAILY AYAN Administration Budesonide 0.5 mg 04/24/25 08:00 04/25/25 08:18 Budesonide 0.5 Mg/2 Ml Neb INHALATION 0.5 mg BID.RESPIRATORY AYAN Administration Citalopram Hydrobromide 20 mg 04/24/25 05:00 04/25/25 05:21 Citalopram 20 Mg Tablet PO 20 mg DAILY AYAN Administration Furosemide 40 mg 04/23/25 22:15 04/24/25 21:55 Furosemide 10 Mg/Ml Sdv 4ml IVP 40 mg Q12H AYAN Administration Ipratropium [place] 0.5 mg 04/24/25 00:00 04/25/25 11:18 Ipratropium 0.5 Mg/2.5 Ml Neb INHALATION 0.5 mg Q4H.RESPIRATORY AYAN Administration Levalbuterol HCl 1.25 mg 04/24/25 00:00 04/25/25 11:18 Levalbuterol 1.25 Mg/3 Ml Neb INHALATION 1.25 mg Q4H.RESPIRATORY AYAN Administration Metoprolol Tartrate 12.5 mg 04/24/25 13:15 04/25/25 09:07 Metoprolol Tartrate 25 Mg Tablet PO 12.5 mg BID@0900,2100 AYAN Administration Midodrine 10 mg 04/23/25 22:15 04/25/25 05:21 Midodrine 5 Mg Tablet PO 10 mg TID AYAN Administration Pantoprazole Sodium 40 mg 04/23/25 17:15 04/24/25 16:46 Pantoprazole 40 Mg Sdv IVP 40 mg Q24H AYAN Administration Prednisone 40 mg 04/25/25 09:05 04/25/25 10:04 Prednisone 20 Mg Tablet PO 04/30/25 09:04 40 mg DAILY AYAN Administration Senna 17.2 mg 04/23/25 21:00 04/24/25 20:53 Sennosides 8.6 Mg Tablet PO Not Given BEDTIME AYAN PFSH Acute PFSH: Medical History (Updated 04/25/25 @ 11:57 by Jim Bowling MD) Acute on chronic hypoxic respiratory failure Heart failure Afib COPD (chronic obstructive pulmonary disease) GERD (gastroesophageal reflux disease) [place] (hard of hearing) CAD (coronary artery disease) Hx of myocardial infarction Hyperlipidemia Depression Hypertension Surgical History Hx of CABG Hx of appendectomy Hx of heart artery stent Family History Father No problems noted. Mother Cancer stomach Social History Smoking and tobacco/nicotine status: current every day tobacco/nicotine user cigarettes [ Other cigarette details: 2 to 3 packs a week] Alcohol intake: current Alcohol intake frequency: few times a month Vitals/I&O/Wt Last Vital Signs Temp 97.2 F L 04/25/25 07:28 Pulse 108 H 04/25/25 11:27 Resp 14 04/25/25 11:27 BP 92/76 04/25/25 07:28 Pulse Ox 93 04/25/25 11:27 O2 Del Method Nasal Cannula 04/25/25 11:27 O2 Flow Rate 2 04/25/25 11:27 04/24/25 04/25/25 04/25/25 22:59 05:59 14:59 Intake Total 610 / 1330 480 / 1810 360 / 360 Output Total 1125 / 2350 1050 / 3400 Balance -515 / -1020 -570 / -1590 360 / 360 Weight last 48 hrs Weight 167 lb 8.821 oz Weight 171 lb 1.259 oz Weight 171 lb 11.841 oz Weight 180 lb Physical Exam Narrative: General: In no acute distress Neck: No jugular venous distention or carotid bruits Heart: Normal S1 and S2 with a regular rate and rhythm, no cardiac murmurs Lungs: Decreased breath sounds in the bases Extremities: 3+ bilateral pedal edema. 2+ bilateral leg edema Neuro: Alert and oriented x 3 Data 04/25/25 03:05 04/25/25 03:05 Other data: 2 EKGs were performed on 04/23/2025. Both were personally interpreted by my self and showed normal sinus rhythm low voltage and intermittent ventricular ectopic beats. There is also evidence of poor R wave progression and possible old anterolateral myocardial infarctions. There is also a mild intraventricular conduction delay. A&P Assessment and plan 1. Acute on chronic heart failure with mildly reduced ejection fraction (HFmrEF): Diuresing well (net -1.6 L over the last 24 hours) Hypotension limiting guideline directed medical therapy for CHF Continue Lasix 40 mg IV twice daily Continue midodrine 10 mg 3 times daily Start ivabradine 5 mg twice daily?if not on our formulary this could be started as an outpatient I see no recent stress test and I do recommend this prior to discharge due to his history of CAD/CABG and frequent hospitalizations for CHF exacerbations. Stress test would be in the form of a Lexiscan nuclear stress test. Lower extremity compression socks Once more euvolemic, recommend changing Lasix to Jardiance and spironolactone combination Start digoxin 0.25mg IV q 6hours x 2 then 0.125mg po daily 2. Hypotension: Agree withincrease in midodrine to 10 mg 3 times daily Blood pressure currently mildly low but stable 3. CAD (coronary artery disease): Lexiscan nuclear stresss test when able to lay flat without SOB 4. ICD (implantable cardioverter-defibrillator) in place: Functioning well 5. PAF (paroxysmal atrial fibrillation): Low A-fib burden of 1.4% according to pacemaker interrogation 04/04/2025 Continue Eliquis metoprolol on hold currently due to hypotension Adding digoxin for HR control and CHF PDMP PDMP Reviewed: Not Reviewed Coding Level of Care Code 77995 Diagnoses Acute on chronic heart failure with mildly reduced ejection fraction (HFmrEF) I50.23 Hypotension I95.9 CAD (coronary artery disease) I25.10 ICD (implantable cardioverter-defibrillator) in place Z95.810 PAF (paroxysmal atrial fibrillation) I48.0
[2025-04-25] MEDS: FUROsemide 10 mg/mL SDV 4mL 40 MG IVP (11:42)
--- NOTE | 2025-04-25 12:42 | P.PN_ITS ---
Subjective 2 Subjective: Patient was seen in the morning, The patient feels better and requiring less oxygen and less short of breath on exertion Vitals/I&O/Wt Last Vital Signs Temp 97.3 F L 04/25/25 11:35 Pulse 109 H 04/25/25 11:35 Resp 18 04/25/25 11:35 BP 95/63 04/25/25 11:35 Pulse Ox 91 04/25/25 11:35 O2 Del Method Nasal Cannula 04/25/25 11:35 O2 Flow Rate 2 04/25/25 11:27 04/24/25 04/25/25 04/25/25 22:59 05:59 14:59 Intake Total 610 / 1330 480 / 1810 465 / 465 Output Total 1125 / 2350 1050 / 3400 175 / 175 Balance -515 / -1020 -570 / -1590 290 / 290 Weight last 48 hrs Weight 76 kg Weight 77.6 kg Weight 77.9 kg Physical Exam 2 Narrative: General: Alert and oriented, was lying on the bed with 2L NC without any distress speaking in full sentences with mild cough and wheezing improved than yesterday, the patient looks well HEENT: Normocephalic, atraumatic, grossly unremarkable exam Cardio: normal rate rhythm, normal S1-S2 without any murmurs, JVD normal Respiratory: Bilateral equal air entry with bilateral inspiratory crackles at the bases with mild diffuse wheezes more or less the same as yesterday GI: Abdomen soft, nontender, nondistended, normoactive bowel sounds present all 4 quadrants, Neuro: intact cranial nerves motor and sensory and cerebellar/coordination function without any focal neurological deficit Behavior: Appropriate and cooperative Extremities: Adequate palpable pulses, bilateral pitting pedal edema Data 04/25/25 03:05 04/25/25 03:05 A&P Assessment and plan 1. Acute on chronic hypoxic respiratory failure: Patient found to have high proBNP around 10,000, delta Trope were not significantly raised, EKG reviewed Recent echo showed ejection fraction of 40 to 45%, Diuresing well (net -1.6 L over the last 24 hours) cardio consulted and recommended: Hypotension limiting guideline directed medical therapy for CHF Continue Lasix 40 mg IV twice daily Continue midodrine 10 mg 3 times daily Start ivabradine 5 mg twice daily?if not on our formulary this could be started as an outpatient recommended stress test prior to discharge due to his history of CAD/CABG and frequent hospitalizations for CHF exacerbations. Stress test would be in the form of a Lexiscan nuclear stress test. Lower extremity compression socks Once euvolemic, recommend changing Lasix to Jardiance and spironolactone combination Start digoxin 0.25mg IV q 6hours x 2 then 0.125mg po daily Patient compliant to his medication, and may need to adjust his diuretics as inpatient and later to follow as outpatient Daily weight base analysis 2. Acute on chronic heart failure with reduced ejection fraction (HFrEF, <= 40%) and combined systolic and diastolic dysfunction: Cardiology on board Continue diuresis along with the support of Lasix to support the blood pressure Midodrine 10 mg 3 times daily Aspirin and statin to continue Telemetry monitoring Intake and output monitoring Daily weight analysis 3. Afib: Low A-fib burden of 1.4% according to pacemaker interrogation 04/04/2025 Continue Eliquis metoprolol on hold currently due to hypotension Continue on aspirin Start digoxin 0.25mg IV q 6hours x 2 then 0.125mg po daily 4. ICD (implantable cardioverter-defibrillator) in place: Functioning well 5. Hypotension: Continue midodrine 10 3 times daily 1 dose of albumin to give Monitor blood pressure 6. Chronic obstructive pulmonary disease, unspecified COPD type: Patient not having any features of COPD exacerbation at the moment Continue treatment with ipratropium, budesonide and lev albuterol prednisone 40mg oral daily for 5 days Oxygen therapy as per protocol 7. GERD (gastroesophageal reflux disease): PPI daily 8. Hyperlipidemia: Continue home dose statins 9. Transaminitis: Could be related to congestive hepatomegaly currently improving Ultrasound liver showed coarse hepatic echotexture with possible hepatic steatosis Follow liver enzymes daily 10. Encounter for screening involving social determinants of health (SDoH): Patient had multiple recurrent admissions, case management involved. Patient has home health aide as his daughter. Case management involved for possible transfer to SNF/assisted for further improvement OT PT evaluation Plan: VTE: Intermittent compression devices. Patient platelets are low Diet: Cardiac PDMP PDMP Reviewed: Not Reviewed Attestations 2 Medical Necessity Statement*: Patient will stay over night for adequate diuresis of acute on congestive heart failure and needing case management for his social concerns postdischarge for disposition Time Spent in Patient Care: 16 - 35 minutes (>than 50% of time sp ent in counselling and/or direct pt care on unit) . Other Attestations: Patient condition has been discussed at length with the patient/family, I have independently reviewed the chart labs imaging/diagnostics/EKG. the goals of care and code status with the patient/family/NOK/legal security systems sales representative, and documented accordingly. The management has been done according to the current clinical condition with respect to patient goals of care and based on recommendations/guidelines. The patient/family has been informed about the current condition and further plan of care. Agreed with the plan of care and understood without any language barrier. Every effort was made to ensure accuracy of soil science technical officer. Any obvious errors or omissions should be clarified with the author of the document. Coding Level of Care Code 07954 Diagnoses Acute on chronic hypoxic respiratory failure J96.21 Acute on chronic heart failure with reduced ejection fraction (HFrEF, <= 40%) and combined systolic and diastolic dysfunction I50.43 Afib I48.91 ICD (implantable cardioverter-defibrillator) in place Z95.810 Hypotension I95.9 Chronic obstructive pulmonary disease, unspecified COPD type J44.9 COPD type: unspecified COPD GERD (gastroesophageal reflux disease) K21.9 Hyperlipidemia E78.5 Transaminitis R74.01 Encounter for screening involving social determinants of health (SDoH) Z13.9
--- NOTE | 2025-04-25 14:35 | PC.NURSE ---
pt reports of severe sharp pain on posterior upper back, he said it feels like it puts pressure on his head and make him feel his heart is pounding. alerted dr michelle, received one time order for ketorolac 15 mg ivp now and recheck pain, can give PRN hydrocodone as ordered prn if no relieved as well as troponin series.
[2025-04-25] MEDS: digoxin 250 mcg/ml INJ 2 mL IVP (15:23)
[2025-04-25 16:08] LABS: Potassium 4.1 mmol/L (3.5-5.1)
[2025-04-25] MEDS: pantoprazole 40 mg SDV IVP (17:13)
[2025-04-26] VITALS (16 sets, daily range): BP systolic 90–110; BP diastolic 53–84; PULSE 87–112; RESP 12–27; TEMP 35.9–36.8; O2SAT 93–98
[2025-04-26 03:12] LABS: Hematocrit 32.8 % (37-53); Hemoglobin 10.60 g/dL (11.27-16.99); Mean Corpuscular HGB Conc 32.3 g/dL (30-55); Mean Corpuscular Hemoglobin 29.8 pg (27-33); Mean Corpuscular Volume 92.1 fl (82-101); Nucleated Red Blood Cells % 0 %; Platelet Count 51 10^3/cmm (157-399); Red Blood Count 3.56 10^6/uL (3.85-5.65); White Blood Count 5.43 10^3/uL (3.29-11.43)
[2025-04-26 03:32] LABS: Alanine Aminotransferase 104 U/L (0-41); Albumin Level 3.5 g/dL (3.5-5.2); Alkaline Phosphatase 298 U/L (40-130); Anion Gap 14.3 (5-19); Aspartate Amino Transferase 62 U/L (0-40); Blood Urea Nitrogen 21 mg/dL (8-23); Calcium 8.6 mg/dL (8.5-10.5); Carbon Dioxide 28 mmol/L (22-29); Chloride 97 mmol/L (98-107); Globulin 1.7 g/dL (1.3-4.6); Glucose 249 mg/dL (65-115); Magnesium 2.0 mg/dL (1.7-2.3); Osmolality Calculated 291 mOsm/kg (285-295); Potassium 4.3 mmol/L (3.5-5.1); Sodium 135 mmol/L (136-145); Total Protein 5.2 g/dL (6.6-8.7)
--- NOTE | 2025-04-26 09:18 | PC.CHAP ---
Pastoral Care Encounter/Spiritual Assessment Type of Contact [] Declined parcel post order clerk visit [] Patient/Family/Request visit [] Outpatient visit [] Follow-up visit [] Physician referral [] Code/Alert [x] Routine visit [] Staff referral [] Actively dying [] Patient sleeping [] Family support [] [] Out of room [] Palliative care [] [x] Receiving care in room [] Pre-surgical visit [] Trauma [] Long length of stay [] ICU visit [] Other: Relational/Emotional Strength [] Patient feels connected with others/family/visitors/staff [] Distress [] Loneliness/isolation [] Abandonment Spirituality of Patient [] Person of Carolyn [] Attends Restorationist of their Carolyn [] Believes in Prayer [] Reads Bible or Shinto materials [] There are Spiritual issues to be addressed Supervisor Rework Interventions [x] Prayer [] Active listening [] Non-anxious presence [] Spiritual/emotional support [] Crisis/trauma care [] Spiritual counseling [] Bereavement support [] Provided bereavement packet [] Provided Bible/devotional materials [] Provided toy/stuffed animal, coloring book to patient or family member [] Provided Communion [] Anointing/[place] [] Salvation [] Completed spiritual assessment [] Other: Impact on Illness or Injury [] Angry [] Fearful [] Anxious [] Often cries [] Exhaustion [] Unable to work [] Unable to attend sikh [] Unable to walk/stand [] Unable to read [] Unable to drive [] Unable to eat/drink [] Unable to sleep [] Unable to be with family [] Patient intubated [] Other: Summary Time spent with patient
--- NOTE | 2025-04-26 10:44 | P.PN_ITS ---
<Statement entered by Jim Bowling MD - 04/26/25 18:22> Patient was evaluated and cared for in conjunction with an advanced practice practitioner. I personally saw the patient and reviewed the chart and all pertinent data. I discussed the patient in detail with the advanced practice practitioner. Please see their note for complete assessment and agreed upon plan of care for the patient. Lasix being held for mildly low BP Afib with borderline controlled rate increase midodrine to 15mg tid restart lasix at 20mg IV tid - hold for BP < 90/50 compression socks would not start Dobutamine with HR already 100s, but if dig restarted may be able to give low dose Dobutamine tomorrow Subjective 2 Subjective: Work of breathing improved. Still has some mild LE edema, compression stockings in place. Vitals/I&O/Wt Last Vital Signs Temp 96.6 F L 04/26/25 07:16 Pulse 101 H 04/26/25 08:00 Resp 20 H 04/26/25 08:00 BP 110/84 04/26/25 07:16 Pulse Ox 98 04/26/25 08:00 O2 Del Method Nasal Cannula 04/26/25 08:00 O2 Flow Rate 2 04/26/25 08:00 04/25/25 04/26/25 04/26/25 22:59 06:59 14:59 Intake Total 480 / 1185 480 / 480 Output Total 455 / 755 125 / 755 Balance 25 / 430 -125 / 430 480 / 480 Weight last 48 hrs Weight 175 lb 0.752 oz Weight 175 lb 0.752 oz Weight 167 lb 8.821 oz Physical Exam 2 Const: COMMON NORMALS: no acute distress and patient oriented x3 GENERAL APPEARANCE: cooperative and comfortable ORIENTATION/CONSCIOUSNESS: Yes awake, Yes oriented to person, Yes oriented to place and Yes oriented to time Chest: COMMONS NORMALS: normal inspection of the chest and normal palpation of entire chest wall CHEST: Yes Symmetrical chest wall rise Resp: COMMON NORMALS: normal respiratory effort, No retractions and No use of accessory muscles EFFORT & INSPECTION: Yes symmetric chest movement A USCULTATION: crackles Laterality: bilateral and posterior Cardio: COMMON NORMALS: regular rate, regular rhythm, S1 normal heart sound present, S2 normal heart sound present, No gallops present (Cardio), No clicks present (Cardio), No murmurs present (Cardio) and No rub (Cardio) RATE: r egular rate RHYTHM: regular rhythm HEART SOUNDS: S1 normal heart sound present and S2 normal heart sound present PERIPHERAL PULSES: radial pulses present Extremity: GENERAL: Yes edema (1+ pitting edema bilat LE below knee) Neuro: COMMON NORMALS: patient oriented x3 and moves all extremities S ENSORIUM/ORIENTATION: Yes oriented to person, Yes oriented to place and Yes oriented to time Data 04/26/25 14:28 04/26/25 02:33 A&P Assessment and plan 1. Acute on chronic heart failure with reduced ejection fraction (HFrEF, <= 40%) and combined systolic and diastolic dysfunction: 2. Hypotension: 3. CAD (coronary artery disease): 4. ICD (implantable cardioverter-defibrillator) in place: 5. PAF (paroxysmal atrial fibrillation): Plan: He has missed some doses of Lasix due to soft blood pressures, even with midodrine 10mg TID. He is still volume overloaded, will continue diuresis with Lasix, change to 20mg TID so as to have less impact on blood pressure. Will also increase midodrine to 15mg TID. Continue digoxin 125mcg daily, metoprolol 12.5mg BID. Discussed with hospitalist, his platelet count has been trending down, will hold Eliquis for now, since it is 51, recheck CBC and plans to resume anticoagulation tomorrow if stable. PDMP PDMP Reviewed: Not Reviewed Attestations 2 Medical Necessity Statement*: continue diuresis, hypotensive BP, systolic CHF Coding Level of Care Code Acute Code for Chg Fwd Diagnoses Acute on chronic heart failure with reduced ejection fraction (HFrEF, <= 40%) and combined systolic and diastolic dysfunction I50.43 Hypotension I95.9 CAD (coronary artery disease) I25.10 ICD (implantable cardioverter-defibrillator) in place Z95.810 PAF (paroxysmal atrial fibrillation) I48.0
[2025-04-26] MEDS: FUROsemide 10 mg/mL SDV 4mL 40 MG IVP (11:12)
--- NOTE | 2025-04-26 13:49 | P.PN_ITS ---
Subjective 2 Subjective: Oxygen requirement up to 3 L/min this morning. On exam has diffuse bilateral crackles. Blood pressure soft. 97/75. Platelet count down to 51,000 today. Medications: Reviewed: Yes Vitals/I&O/Wt Last Vital Signs Temp 97.0 F L 04/26/25 11:27 Pulse 96 04/26/25 11:37 Resp 20 H 04/26/25 11:37 BP 97/75 04/26/25 11:27 Pulse Ox 95 04/26/25 11:37 O2 Del Method Nasal Cannula 04/26/25 11:37 O2 Flow Rate 3 04/26/25 11:37 04/25/25 04/26/25 04/26/25 22:59 06:59 14:59 Intake Total 480 / 1185 960 / 960 Output Total 455 / 630 125 / 755 400 / 400 Balance 25 / 555 -125 / 430 560 / 560 Weight last 48 hrs Weight 79.4 kg Weight 79.4 kg Weight 76 kg Physical Exam 2 Narrative: General: No acute distress, AO x3 HEENT: PERRLA, pupils bilaterally equal and reactive, pallors not present Chest: Diffuse crackles to auscultation bilaterally CVS: S1-S2 regular, no murmurs, no tachycardia, no gallops, no rubs Abdomen: Soft, nontender, no organomegaly, bowel sounds present Neuro: No focal deficits, no facial deformity, AO x3, power 5/5 in all limbs Extremities: Pitting edema bilaterally lower extremities Data 04/26/25 02:33 04/26/25 02:33 A&P Assessment and plan 1. Acute on chronic hypoxic respiratory failure: Patient found to have high proBNP around 10,000, delta Trope were not significantly raised, EKG reviewed Recent echo showed ejection fraction of 40 to 45%, Diuresing well (net -1.6 L over the last 24 hours) cardio consulted and recommended: Hypotension limiting guideline directed medical therapy for CHF Continue Lasix 40 mg IV twice daily Continue midodrine 10 mg 3 times daily Start ivabradine 5 mg twice daily?if not on our formulary this could be started as an outpatient recommended stress test prior to discharge due to his history of CAD/CABG and frequent hospitalizations for CHF exacerbations. Stress test would be in the form of a Lexiscan nuclear stress test. Lower extremity compression socks Once euvolemic, recommend changing Lasix to Jardiance and spironolactone combination Start digoxin 0.25mg IV q 6hours x 2 then 0.125mg po daily Patient compliant to his medication, and may need to adjust his diuretics as inpatient and later to follow as outpatient Daily weight base analysis 2. Acute on chronic heart failure with reduced ejection fraction (HFrEF, <= 40%) and combined systolic and diastolic dysfunction: Cardiology on board Continue diuresis along with the support of Lasix to support the blood pressure Midodrine 10 mg 3 times daily Aspirin and statin to continue Telemetry monitoring Intake and output monitoring Daily weight analysis 3. Afib: Low A-fib burden of 1.4% according to pacemaker interrogation 04/04/2025 Continue Eliquis metoprolol on hold currently due to hypotension Continue on aspirin Start digoxin 0.25mg IV q 6hours x 2 then 0.125mg po daily 4. ICD (implantable cardioverter-defibrillator) in place: Functioning well 5. Hypotension: Continue midodrine 10 3 times daily 1 dose of albumin to give Monitor blood pressure 6. Chronic obstructive pulmonary disease, unspecified COPD type: Patient not having any features of COPD exacerbation at the moment Continue treatment with ipratropium, budesonide and lev albuterol prednisone 40mg oral daily for 5 days Oxygen therapy as per protocol 7. GERD (gastroesophageal reflux disease): PPI daily 8. Hyperlipidemia: Continue home dose statins 9. Transaminitis: Could be related to congestive hepatomegaly currently improving Ultrasound liver showed coarse hepatic echotexture with possible hepatic steatosis Follow liver enzymes daily 10. Encounter for screening involving social determinants of health (SDoH): Patient had multiple recurrent admissions, case management involved. Patient has home health aide as his daughter. Case management involved for possible transfer to SNF/assisted for further improvement OT PT evaluation 11. Thrombocytopenia: Plan: VTE: Intermittent compression devices. Patient platelets are low Diet: Cardiac 04/26/2025. 74-year-old male with known history of COPD, typically on 2 L/min supplemental O2, history of CHF, last echocardiogram from April 05, 2025 with ejection fraction of 40 to 45% with mild global hypokinesia. He is currently admitted with acute on chronic worsening hypoxemic respiratory failure. Likely related to acute on chronic systolic CHF exacerbation. Patient is currently on diuresis with Lasix 40 mg IV every 12 hours which we will continue. His IV diuresis was interrupted overnight due to soft blood pressure. He is currently on midodrine 10 mg 3 times daily. Goal-directed medical therapy for heart failure has been unable to be optimized due to soft BP. Discussed with cardiology starting low-dose dopamine to maintain blood pressure however currently the concern is that it may worsen his tachycardia therefore holding off. Midodrine has been increased to 15 mg 3 times daily and Lasix increased to 20 mg IV every 8 hours per cardiology recommendations. Continue IV diuresis. Urine output 980 cc last 24 hours. Net -1200 cc. Bladder scan today to ensure no urinary retention contributing to lower output. Crackles on exam today diffusely. It will be critical to maintain his IV diuresis. Oxygen requirement up at 3 L/min today. Check chest x-ray. Platelet count dropping to 51,000 today, currently uncertain as to the reason for this drop. Reviewing his prior admission, his platelet count was at 197 on April 08, 2025, lowest platelet count in the past has been at 149. I do not see any mention of thrombocytopenia on his past medical history. LFTs noted to be mildly elevated. Ultrasound showing hepatic steatosis. No known history of cirrhosis. Will check peripheral smear to assess for platelet clumping and focal thrombocytopenia. Check CBC with manual differential to confirm thrombocytopenia. Hold Eliquis as patient had mild hemoptysis this morning along with the platelet count of 50,000. Unlikely HIT as patient has not been exposed to any heparin products during this admission. Check respiratory viral panel as from the cytopenia and deranged LFTs may be related to acute viral infection. He has been afebrile this current admission. Changed to inpatient admission PDMP PDMP Reviewed: Not Reviewed Attestations 2 Medical Necessity Statement*: Continued need for IV diuresis, increasing oxygen requirements today. Developing thrombocytopenia Coding Level of Care Code Acute Code for Chg Fwd Diagnoses Acute on chronic hypoxic respiratory failure J96.21 Acute on chronic heart failure with reduced ejection fraction (HFrEF, <= 40%) and combined systolic and diastolic dysfunction I50.43 Afib I48.91 ICD (implantable cardioverter-defibrillator) in place Z95.810 Hypotension I95.9 Chronic obstructive pulmonary disease, unspecified COPD type J44.9 COPD type: unspecified COPD GERD (gastroesophageal reflux disease) K21.9 Hyperlipidemia E78.5 Transaminitis R74.01 Encounter for screening involving social determinants of health (SDoH) Z13.9 Thrombocytopenia D69.6
--- NOTE | 2025-04-26 13:54 | XR_ITS ---
WS: [id number] Portable AP semiupright chest, 04/26/2025 Clinical Data: assess for edema Comparison: None. Findings: No nodules or masses are seen. There are small bilateral pleural effusions. The heart is enlarged. The pulmonary vascularity is increased. No pneumonia or pneumothorax is seen. Midline sternotomy sutures and midline surgical mediastinal plates are present. There is a cardiac pacemaker and d efibrillator with the generator overlying the left upper chest. The aortic arch shows calcification. There are surgical clips in the left supraclavicular region. Monitor leads are on the chest wall. XR/XR chest 1V portable [id number] Impression: 1. Cardiomegaly with increased pulmonary vascularity and bilateral pleural effu sions. 2. Atherosclerosis and cardiac pacemaker and defibrillator.
[2025-04-26 14:48] LABS: Hematocrit 33.1 % (37-53); Hemoglobin 10.60 g/dL (11.27-16.99); Mean Corpuscular HGB Conc 32.0 g/dL (30-55); Mean Corpuscular Hemoglobin 29.6 pg (27-33); Mean Corpuscular Volume 92.5 fl (82-101); Platelet Count 61 10^3/cmm (157-399); Red Blood Count 3.58 10^6/uL (3.85-5.65); White Blood Count 8.12 10^3/uL (3.29-11.43)
[2025-04-26 15:23] LABS: LAB Peripheral Smear Sent for Review; Total Cells Counted 100 (0-100)
[2025-04-26 15:28] LABS: Absolute Segmented Neutrophil 7.1 10/cmm (1.6-7.1); Anisocytosis 1+; Atypical Lymphs 0.0 % (0-5); Band Neutrophils Absolute 0.1 10^3/cmm (0.0-1.2)
[2025-04-26 15:31] LABS: Hepatitis A Antibody IgM Non-Reactive (Nonreactive); Hepatitis B Surface Antigen Non-Reactive (Nonreactive)
[2025-04-26] MEDS: pantoprazole 40 mg SDV IVP (17:00)
[2025-04-26 19:45] LABS: Coronavirus 229E,HKU1,NL63,OC4 Not Detected (NOT DETECT); Parainfluenza Virus Type 1 Not Detected (NOT DETECT); Parainfluenza Virus Type 2 Not Detected (NOT DETECT); Parainfluenza Virus Type 3 Not Detected (NOT DETECT); Parainfluenza Virus Type 4 Not Detected (NOT DETECT); SARS-COV-2 Not Detected (NOT DETECT)
[2025-04-26] MEDS: FUROsemide 10 mg/mL SDV 2mL 20 MG IVP (21:13)
[2025-04-27] VITALS (16 sets, daily range): BP systolic 89–103; BP diastolic 61–79; PULSE 86–108; RESP 13–27; TEMP 36.6–36.8; O2SAT 87–98
[2025-04-27] MEDS: FUROsemide 10 mg/mL SDV 2mL 20 MG IVP ×3 (04:37→21:53)
[2025-04-27 05:03] LABS: Hematocrit 33.1 % (37-53); Hemoglobin 10.50 g/dL (11.27-16.99); Mean Corpuscular HGB Conc 31.7 g/dL (30-55); Mean Corpuscular Hemoglobin 30.0 pg (27-33); Mean Corpuscular Volume 94.6 fl (82-101); Nucleated Red Blood Cells % 0 %; Platelet Count 69 10^3/cmm (157-399); Red Blood Count 3.50 10^6/uL (3.85-5.65); White Blood Count 7.52 10^3/uL (3.29-11.43)
[2025-04-27 05:32] LABS: Alanine Aminotransferase 103 U/L (0-41); Albumin Level 3.6 g/dL (3.5-5.2); Alkaline Phosphatase 266 U/L (40-130); Anion Gap 11.9 (5-19); Aspartate Amino Transferase 48 U/L (0-40); Blood Urea Nitrogen 21 mg/dL (8-23); Calcium 9.0 mg/dL (8.5-10.5); Carbon Dioxide 32 mmol/L (22-29); Chloride 98 mmol/L (98-107); Globulin 1.7 g/dL (1.3-4.6); Glucose 220 mg/dL (65-115); Osmolality Calculated 296 mOsm/kg (285-295); Potassium 3.9 mmol/L (3.5-5.1); Sodium 138 mmol/L (136-145); Total Protein 5.3 g/dL (6.6-8.7)
--- NOTE | 2025-04-27 09:11 | PC.CHAP ---
Pastoral Care Encounter/Spiritual Assessment Type of Contact [] Declined utility tractor operator visit [] Patient/Family/Request visit [] Outpatient visit [] Follow-up visit [] Physician referral [] Code/Alert [] Routine visit [] Staff referral [] Actively dying [x] Patient sleeping [] Family support [] [] Out of room [] Palliative care [] [] Receiving care in room [] Pre-surgical visit [] Trauma [] Long length of stay [] ICU visit [] Other: Relational/Emotional Strength [] Patient feels connected with others/family/visitors/staff [] Distress [] Loneliness/isolation [] Abandonment Spirituality of Patient [] Person of Carolyn [] Attends Amish of their [place] [] Believes in Prayer [] Reads Bible or Yazidi materials [] There are Spiritual issues to be addressed Fixed Income Manager Interventions [] Prayer [] Active listening [] Non-anxious presence [] Spiritual/emotional support [] Crisis/trauma care [] Spiritual counseling [] Bereavement support [] Provided bereavement packet [] Provided Bible/devotional materials [] Provided toy/stuffed animal, coloring book to patient or family member [] Provided Communion [] Anointing/[place] [] Salvation [] Completed spiritual assessment [] Other: Impact on Illness or Injury [] Angry [] Fearful [] Anxious [] Often cries [] Exhaustion [] Unable to work [] Unable to attend baptist [] Unable to walk/stand [] Unable to read [] Unable to drive [] Unable to eat/drink [] Unable to sleep [] Unable to be with family [] Patient intubated [] Other: Summary Time spent with patient
--- NOTE | 2025-04-27 09:15 | P.PN_ITS ---
Subjective 2 Subjective: Reports improved breathing, laying flat in bed. Audible crackles improve with coughing, by auscultation he has scattered wheezes and crackles. He is in sinus rhythm at the time of exam. Vitals/I&O/Wt Last Vital Signs Temp 98.1 F 04/27/25 07:28 Pulse 86 04/27/25 08:36 Resp 18 04/27/25 08:36 BP 101/79 04/27/25 07:28 Pulse Ox 95 04/27/25 08:36 O2 Del Method Nasal Cannula 04/27/25 08:36 O2 Flow Rate 3 04/27/25 08:36 04/26/25 04/27/25 04/27/25 22:59 06:59 14:59 Intake Total 480 / 1680 240 / 1680 240 / 240 Output Total 200 / 750 150 / 750 850 / 850 Balance 280 / 930 90 / 930 -610 / -610 Weight last 48 hrs Weight 174 lb 6.17 oz Weight 175 lb 0.752 oz Weight 175 lb 0.752 oz Physical Exam 2 Const: COMMON NORMALS: no acute distress and patient oriented x3 GENERAL APPEARANCE: cooperative and comfortable ORIENTATION/CONSCIOUSNESS: Yes awake, Yes oriented to person, Yes oriented to place and Yes oriented to time Chest: COMMONS NORMALS: normal inspection of the chest and normal palpation of entire chest wall CHEST: Yes Symmetrical chest wall rise Resp: COMMON NORMALS: normal respiratory effort, No retractions and No use of accessory muscles EFFORT & INSPECTION: Yes symmetric chest movement A USCULTATION: crackles Laterality: bilateral (scattered ) and posterior and wheezes expiratory wheezes, upper bilaterally and posterior Cardio: COMMON NORMALS: regular rate, regular rhythm, S1 normal heart sound present, S2 normal heart sound present, No gallops present (Cardio), No clicks present (Cardio), No murmurs present (Cardio) and No rub (Cardio) RATE: r egular rate RHYTHM: regular rhythm HEART SOUNDS: S1 normal heart sound present and S2 normal heart sound present PERIPHERAL PULSES: radial pulses present Extremity: COMMON NORMALS: no pedal edema Neuro: COMMON NORMALS: patient oriented x3 and moves all extremities S ENSORIUM/ORIENTATION: Yes oriented to person, Yes oriented to place and Yes oriented to time Data 04/27/25 04:33 04/27/25 04:33 A&P Assessment and plan 1. Acute on chronic heart failure with reduced ejection fraction (HFrEF, <= 40%) and combined systolic and diastolic dysfunction: 2. Hypotension: 3. CAD (coronary artery disease): 4. ICD (implantable cardioverter-defibrillator) in place: 5. PAF (paroxysmal atrial fibrillation): Plan: Volume status is improving, lung sounds are better, he is able to lie flat without distress. No need for dobutamine at this time. Continue Lasix 20 mg 3 times daily with midodrine 15 mg 3 times daily, digoxin 125 mcg daily for rate control along with metoprolol 12.5 mg twice daily. Continue statin, aspirin and Eliquis. PDMP PDMP Reviewed: Not Reviewed Attestations 2 Medical Necessity Statement*: continued diuresis Coding Level of Care Code Acute Code for Chg Fwd Diagnoses Acute on chronic heart failure with reduced ejection fraction (HFrEF, <= 40%) and combined systolic and diastolic dysfunction I50.43 Hypotension I95.9 CAD (coronary artery disease) I25.10 ICD (implantable cardioverter-defibrillator) in place Z95.810 PAF (paroxysmal atrial fibrillation) I48.0
--- NOTE | 2025-04-27 12:42 | PC.NURSE ---
updated family Talked to Laura pt's granddaughter about pt's plan of care today.
--- NOTE | 2025-04-27 13:16 | XR_ITS ---
WS: [id number] Portable AP upright chest, 04/27/2025 Clinical Data: f/up effusion and edema Comparison: Portable chest, 04/26/2025 Findings: The pulmonary vascular congestion shows reduction and improvement. There is still small bilateral pleural effusions. The heart remains enlarged. Midline sternotomy sutures and plates remain in position. The cardiac pacemaker has not changed. XR/XR chest 1V portable [id number] Impression: 1. Partial clearing of pulmonary vascular congestion. 2. No change in cardiomegaly, atherosclerosis, cardiac pacemaker and pleural ef fusions.
--- NOTE | 2025-04-27 13:18 | CTR_ITS ---
PROCEDURE INFORMATION: Exam: CT Chest Without Contrast; Diagnostic Exam date and time: 04/27/2025 2:49 PM Age: 74 years old Clinical indication: Condition or disease; Lung condition and disease; Other: Unkown; Evaluate pleural effusion, assess for consolidation; Additional info: Evalute pleural effusion, assess for consolidation TECHNIQUE: Imaging protocol: Diagnostic computed tomography of the chest without contrast. Radiation optimization: All CT scans at this facility use at least one of these dose optimization techniques: automated exposure control; mA and/or kV adjustment per patient size (includes targeted exams where dose is matched to clinical indication); or iterative reconstruction. COMPARISON: CT angio chest PE protcl [id number] 04/05/2025 1:48 PM RADIATION DOSE METRICS: Total DLP (mGy-cm): 426.03 FINDINGS: Lungs: There is moderate architectural changes of centrilobular emphysema. There is posterior bibasilar compressive lower lobe atelectasis. There has been the interval development of some mild alveolar inflammatory ground-glass opacity within the dorsal aspect of the left upper lobe and lingula and within the aspect of the right lower lobe. Motion artifact degrades fine detail through the lungs. Pleural spaces: There are small to moderate bilateral dependent layering pleural effusions. These have slightly increased in the interim. Heart: There is an atrial appendage clip. Coronary arteries: There is prominent atherosclerotic calcification within the coronary arteries. Lymph nodes: There remain small primarily sub threshold mediastinal lymph nodes. There is an enlarged AP window lymph node which is stable measuring 16 x 19 mm. Vasculature: Unremarkable. No aortic aneurysm. Suspected bypass extends superiorly from the anterior margin of the ascending thoracic aorta, stable. Diaphragm: There is a moderate size retrocardiac hiatal hernia. Intraperitoneal space: There is small volume upper quadrant ascites. This is new from the prior CT. Bones/joints: There is no acute osseous abnormality seen. Soft tissues: There is whole-body anasarca. CT/CT chest wo con [id number] IMPRESSION: 1. Small to moderate bilateral pleural effusions increased since prior exam 2. Mild inflammatory ground-glass density now present in the dorsal left upper lobe and lingula as well as the within the right lower lobe. 3. Small volume upper abdominal ascites, new from the prior exam. 4. Body wall anasarca. 5. Retrocardiac hiatal hernia. 6. Centrilobular emphysema. 7. Mediastinal adenopathy as defined. This is likely reactive. But should be followed to resolution. COMMENTS: The presence of pulmonary emphysema on CT is an independent risk factor for lung cancer. In the absence of a history or active diagnosis of lung cancer, it is recommended that this patient with emphysema be evaluated for enrollment in a low dose CT lung cancer screening program.
--- NOTE | 2025-04-27 13:28 | P.PN_ITS ---
Subjective 2 Subjective: Continues to have some hemoptysis today. Blood-tinged expectoration noted. Volume of expectorant appears to have increased today. Patient denies any complaints, however he is tachypneic in conversation. Noted bilateral crackles. No fever or leukocytosis. Medications: Reviewed: Yes Vitals/I&O/Wt Last Vital Signs Temp 98.1 F 04/27/25 07:28 Pulse 96 04/27/25 12:11 Resp 18 04/27/25 11:32 BP 101/79 04/27/25 07:28 Pulse Ox 97 04/27/25 11:32 O2 Del Method Nasal Cannula 04/27/25 11:32 O2 Flow Rate 2 04/27/25 11:32 04/26/25 04/27/25 04/27/25 22:59 06:59 14:59 Intake Total 480 / 1440 240 / 1680 240 / 240 Output Total 200 / 600 150 / 750 850 / 850 Balance 280 / 840 90 / 930 -610 / -610 Weight last 48 hrs Weight 79.1 kg Weight 79.4 kg Weight 79.4 kg Physical Exam 2 Narrative: General: No acute distress, AO x3 HEENT: PERRLA, pupils bilaterally equal and reactive, pallors not present Chest: Diffuse crackles to auscultation bilaterally CVS: S1-S2 regular, no murmurs, no tachycardia, no gallops, no rubs Abdomen: Soft, nontender, no organomegaly, bowel sounds present Neuro: No focal deficits, no facial deformity, AO x3, power 5/5 in all limbs Extremities: Pitting edema bilaterally lower extremities Data 04/27/25 04:33 04/27/25 04:33 A&P Assessment and plan 1. Acute on chronic hypoxic respiratory failure: Patient found to have high proBNP around 10,000, delta Trope were not significantly raised, EKG reviewed Recent echo showed ejection fraction of 40 to 45%, Diuresing well (net -1.6 L over the last 24 hours) cardio consulted and recommended: Hypotension limiting guideline directed medical therapy for CHF Continue Lasix 40 mg IV twice daily Continue midodrine 10 mg 3 times daily Start ivabradine 5 mg twice daily?if not on our formulary this could be started as an outpatient recommended stress test prior to discharge due to his history of CAD/CABG and frequent hospitalizations for CHF exacerbations. Stress test would be in the form of a Lexiscan nuclear stress test. Lower extremity compression socks Once euvolemic, recommend changing Lasix to Jardiance and spironolactone combination Start digoxin 0.25mg IV q 6hours x 2 then 0.125mg po daily Patient compliant to his medication, and may need to adjust his diuretics as inpatient and later to follow as outpatient Daily weight base analysis 2. Acute on chronic heart failure with reduced ejection fraction (HFrEF, <= 40%) and combined systolic and diastolic dysfunction: Cardiology on board Continue diuresis along with the support of Lasix to support the blood pressure Midodrine 10 mg 3 times daily Aspirin and statin to continue Telemetry monitoring Intake and output monitoring Daily weight analysis 3. Afib: Low A-fib burden of 1.4% according to pacemaker interrogation 04/04/2025 Continue Eliquis metoprolol on hold currently due to hypotension Continue on aspirin Start digoxin 0.25mg IV q 6hours x 2 then 0.125mg po daily 4. ICD (implantable cardioverter-defibrillator) in place: Functioning well 5. Hypotension: Continue midodrine 10 3 times daily 1 dose of albumin to give Monitor blood pressure 6. Chronic obstructive pulmonary disease, unspecified COPD type: Patient not having any features of COPD exacerbation at the moment Continue treatment with ipratropium, budesonide and lev albuterol prednisone 40mg oral daily for 5 days Oxygen therapy as per protocol 7. GERD (gastroesophageal reflux disease): PPI daily 8. Hyperlipidemia: Continue home dose statins 9. Transaminitis: Could be related to congestive hepatomegaly currently improving Ultrasound liver showed coarse hepatic echotexture with possible hepatic steatosis Follow liver enzymes daily 10. Encounter for screening involving social determinants of health (SDoH): Patient had multiple recurrent admissions, case management involved. Patient has home health aide as his daughter. Case management involved for possible transfer to SNF/longterm for further improvement OT PT evaluation 11. Thrombocytopenia: Plan: VTE: Intermittent compression devices. Patient platelets are low Diet: Cardiac 04/26/2025. 74-year-old male with known history of COPD, typically on 2 L/min supplemental O2, history of CHF, last echocardiogram from April 05, 2025 with ejection fraction of 40 to 45% with mild global hypokinesia. He is currently admitted with acute on chronic worsening hypoxemic respiratory failure. Likely related to acute on chronic systolic CHF exacerbation. Patient is currently on diuresis with Lasix 40 mg IV every 12 hours which we will continue. His IV diuresis was interrupted overnight due to soft blood pressure. He is currently on midodrine 10 mg 3 times daily. Goal-directed medical therapy for heart failure has been unable to be optimized due to soft BP. Discussed with cardiology starting low-dose dopamine to maintain blood pressure however currently the concern is that it may worsen his tachycardia therefore holding off. Midodrine has been increased to 15 mg 3 times daily and Lasix increased to 20 mg IV every 8 hours per cardiology recommendations. Continue IV diuresis. Urine output 980 cc last 24 hours. Net -1200 cc. Bladder scan today to ensure no urinary retention contributing to lower output. Crackles on exam today diffusely. It will be critical to maintain his IV diuresis. Oxygen requirement up at 3 L/min today. Check chest x-ray. Platelet count dropping to 51,000 today, currently uncertain as to the reason for this drop. Reviewing his prior admission, his platelet count was at 197 on April 08, 2025, lowest platelet count in the past has been at 149. I do not see any mention of thrombocytopenia on his past medical history. LFTs noted to be mildly elevated. Ultrasound showing hepatic steatosis. No known history of cirrhosis. Will check peripheral smear to assess for platelet clumping and focal thrombocytopenia. Check CBC with manual differential to confirm thrombocytopenia. Hold Eliquis as patient had mild hemoptysis this morning along with the platelet count of 50,000. Unlikely HIT as patient has not been exposed to any heparin products during this admission. Check respiratory viral panel as from the cytopenia and deranged LFTs may be related to acute viral infection. He has been afebrile this current admission. Changed to inpatient admission 04/27/2025 Continues to have bilateral crackles. Increased amount of expectoration today, however bleeding does not appear to have increased with regards to hemoptysis. Holding Eliquis today again. Net -1.4 L. Negative respiratory viral panel. No fever or leukocytosis. Will obtain CT of the chest today to assess for edema, worsening effusion versus possibly developing pneumonia given increased crackles and increased expectoration today. Low probability of PE given patient is chronically on Eliquis. Continue diuresis with Lasix 20 mg IV 3 times daily. Blood pressure lowest 89/61, MAP over 65 on midodrine 15 mg 3 times daily. Will discuss with cardiology if may benefit from Lasix drip. Platelet count improving at 69,000 today. Unclear cause. Hepatitis serology negative for hep A IgM. Hep B core total antibody positive however surface antigen negative consistent with past infection. Hepatitis C Ab positive, pending hep C PCR. No evidence of cirrhosis on ultrasound imaging. Pending peripheral smear. PDMP PDMP Reviewed: Not Reviewed Attestations 2 Medical Necessity Statement*: Continued need for IV diuresis Coding Level of Care Code Acute Code for Chg Fwd Diagnoses Acute on chronic hypoxic respiratory failure J96.21 Acute on chronic heart failure with reduced ejection fraction (HFrEF, <= 40%) and combined systolic and diastolic dysfunction I50.43 Afib I48.91 ICD (implantable cardioverter-defibrillator) in place Z95.810 Hypotension I95.9 Chronic obstructive pulmonary disease, unspecified COPD type J44.9 COPD type: unspecified COPD GERD (gastroesophageal reflux disease) K21.9 Hyperlipidemia E78.5 Transaminitis R74.01 Encounter for screening involving social determinants of health (SDoH) Z13.9 Thrombocytopenia D69.6
[2025-04-27 14:50] LABS: Lactate (Lactic Acid level) 3.0 mmol/L (0.5-2.2)
[2025-04-27 15:10] LABS: HEP C RNA Viral Load Quant <1.18 NOT DETECTED Log IU/mL (NOT DETECTED); HEP C RNA Viral Load Quant <15 NOT DETECTED IU/mL (NOT DETECTED)
[2025-04-27] MEDS: pantoprazole 40 mg SDV IVP (18:25)
[2025-04-27] MEDS: piperacillin-tazobactam 3.375 GM in sodium chloride 0.9% (plus) 50 ML IV (18:26)
[2025-04-28] VITALS (104 sets, daily range): BP systolic 90–126; BP diastolic 54–93; PULSE 87–101; RESP 12–42; TEMP 36.8–36.9; O2SAT 88–100
[2025-04-28 00:36] LABS: Alanine Aminotransferase 87 U/L (0-41); Albumin Level 3.3 g/dL (3.5-5.2); Alkaline Phosphatase 225 U/L (40-130); Anion Gap 14.9 (5-19); Aspartate Amino Transferase 37 U/L (0-40); Blood Urea Nitrogen 20 mg/dL (8-23); Calcium 8.6 mg/dL (8.5-10.5); Carbon Dioxide 28 mmol/L (22-29); Chloride 96 mmol/L (98-107); Globulin 1.1 g/dL (1.3-4.6); Glucose 304 mg/dL (65-115); Magnesium 1.8 mg/dL (1.7-2.3); Osmolality Calculated 294 mOsm/kg (285-295); Potassium 3.9 mmol/L (3.5-5.1); Sodium 135 mmol/L (136-145); Total Protein 4.4 g/dL (6.6-8.7)
[2025-04-28] MEDS: piperacillin-tazobactam 3.375 GM in sodium chloride 0.9% (plus) 50 ML IV ×3 (02:07→17:15)
[2025-04-28 05:42] LABS: Hematocrit 30.5 % (37-53); Hemoglobin 9.60 g/dL (11.27-16.99); Mean Corpuscular HGB Conc 31.5 g/dL (30-55); Mean Corpuscular Hemoglobin 29.5 pg (27-33); Mean Corpuscular Volume 93.8 fl (82-101); Nucleated Red Blood Cells % 0 %; Platelet Count 70 10^3/cmm (157-399); Red Blood Count 3.25 10^6/uL (3.85-5.65); White Blood Count 4.35 10^3/uL (3.29-11.43)
[2025-04-28 06:04] LABS: Alanine Aminotransferase 82 U/L (0-41); Albumin Level 3.2 g/dL (3.5-5.2); Alkaline Phosphatase 207 U/L (40-130); Anion Gap 11.8 (5-19); Aspartate Amino Transferase 35 U/L (0-40); Blood Urea Nitrogen 19 mg/dL (8-23); Calcium 8.6 mg/dL (8.5-10.5); Carbon Dioxide 31 mmol/L (22-29); Chloride 97 mmol/L (98-107); Globulin 1.6 g/dL (1.3-4.6); Glucose 196 mg/dL (65-115); Osmolality Calculated 290 mOsm/kg (285-295); Potassium 3.8 mmol/L (3.5-5.1); Sodium 136 mmol/L (136-145); Total Protein 4.8 g/dL (6.6-8.7)
--- NOTE | 2025-04-28 07:39 | PC.NURSE ---
Patient had 42 beats of v-tach. Patient was sitting up in bed when I got to room, did not feel anything and stated that he was fine. Vitals were obtained and Dr Coles was notified. New orders for CMP with mag and phos were ordered. Patient code status is AND, I did ask patient that if his heart went back into this rhythm and if his pacemaker does not shock him if he would allow us to shock his heart back into a normal rhythm and he stated yes . Granddaughter Laura was notified of situation.
--- NOTE | 2025-04-28 08:29 | P.PN_ITS ---
<Statement entered by Eric Brady MD - 04/30/25 19:32> Patient was evaluated and cared for in conjunction with an advanced practice practitioner. I personally examined the patient and reviewed the chart and all pertinent data including imaging, telemetry, and laboratory results. I discussed the patient in detail with the advanced practice practitioner. Please see their note for complete H&P testing result and agreed upon plan of care for the patient. Subjective 2 Subjective: CT of chest yesterday revealing small to moderate bilateral pleural effusions, anasarca, small volume upper abdominal ascities, inflammatory changes in the left upper and right lower lobes. Zosyn started yesterday. He is able to lay flat without shortness of breath, but unable to walk distances without oxygen saturation dropping. No chest pain. He had a run of sustained VT overnight, 42 beats in duration, appears that his ICD shocked him out of it. Blood pressure soft overnight, limiting aggressive diuresis. Vitals/I&O/Wt Last Vital Signs Temp 98.2 F 04/28/25 03:57 Pulse 90 04/28/25 07:50 Resp 20 H 04/28/25 07:50 BP 99/77 04/28/25 03:57 Pulse Ox 96 04/28/25 07:50 O2 Del Method Nasal Cannula 04/28/25 07:50 O2 Flow Rate 3 04/28/25 07:50 04/27/25 04/28/25 04/28/25 22:59 06:59 14:59 Intake Total 410 / 1180 170 / 1180 Output Total 300 / 2150 800 / 2150 Balance 110 / -970 -630 / -970 Weight last 48 hrs Weight 174 lb 13 oz Weight 174 lb 13.225 oz Weight 174 lb 6.17 oz Physical Exam 2 Const: COMMON NORMALS: no acute distress and patient oriented x3 GENERAL APPEARANCE: cooperative and comfortable ORIENTATION/CONSCIOUSNESS: Yes awake, Yes oriented to person, Yes oriented to place and Yes oriented to time Chest: COMMONS NORMALS: normal inspection of the chest and normal palpation of entire chest wall CHEST: Yes Symmetrical chest wall rise Resp: COMMON NORMALS: normal respiratory effort, No retractions and No use of accessory muscles EFFORT & INSPECTION: Yes symmetric chest movement A USCULTATION: crackles (bases) Laterality: bilateral and posterior Cardio: COMMON NORMALS: regular rate, regular rhythm, S1 normal heart sound present, S2 normal heart sound present, No gallops present (Cardio), No clicks present (Cardio), No murmurs present (Cardio) and No rub (Cardio) RATE: r egular rate RHYTHM: regular rhythm HEART SOUNDS: S1 normal heart sound present and S2 normal heart sound present PERIPHERAL PULSES: radial pulses present Extremity: COMMON NORMALS: no pedal edema Neuro: COMMON NORMALS: patient oriented x3 and moves all extremities S ENSORIUM/ORIENTATION: Yes oriented to person, Yes oriented to place and Yes oriented to time Data 04/28/25 05:02 04/28/25 05:02 A&P Assessment and plan 1. Acute on chronic heart failure with reduced ejection fraction (HFrEF, <= 40%) and combined systolic and diastolic dysfunction: 2. Dyspnea on exertion: 3. ICD (implantable cardioverter-defibrillator) in place: 4. PAF (paroxysmal atrial fibrillation): 5. CAD (coronary artery disease): 6. Hyperlipidemia: 7. Acute on chronic hypoxic respiratory failure: Plan: He is still in decompensated heart failure, blood pressure limits aggressive diuresis, otherwise would add on metolazone. For now, will increase Lasix to 40mg TID, add potassium 20mEq BID. Magnesium today is 1.8, adding magnesium 2gm IV x1, will keep potassium greater than 4 and magnesium level above 2.0 Continue Eliquis, statin, digoxin 125mcg daily, midodrine 15mg TID, metoprolol 12.5mg BID, aspirin. If he has any further runs of VT, will add amiodarone. Monitoring blood pressure closely. PDMP PDMP Reviewed: Not Reviewed Attestations 2 Medical Necessity Statement*: medical management of heart failure Coding Level of Care Code Acute Code for Chg Fwd Diagnoses Acute on chronic heart failure with reduced ejection fraction (HFrEF, <= 40%) and combined systolic and diastolic dysfunction I50.43 Dyspnea on exertion R06.09 ICD (implantable cardioverter-defibrillator) in place Z95.810 PAF (paroxysmal atrial fibrillation) I48.0 CAD (coronary artery disease) I25.10 Hyperlipidemia E78.5 Acute on chronic hypoxic respiratory failure J96.21
[2025-04-28] MEDS: magnesium sulfate premix 2 GM/50 ML PIGGYBACK IV (09:47)
[2025-04-28] MEDS: FUROsemide 10 mg/mL SDV 4mL 40 MG IVP (12:24)
[2025-04-28 12:59] LABS: ABG PCO2 45.3 mmHg (35-45); ABG PH Result 7.41 (7.35-7.45); Arterial Blood Gas Hematocrit 34.4 % (42-52); Blood Gas Allen Test Pos; Blood Gas Sample Type Arterial; HCO3 ABG 28.8 mmol/L (22-26); PO2 ABG 82.7 mmHg (80.0-100.0)
--- NOTE | 2025-04-28 12:59 | PC.SOCIAL ---
IMM Updated Updated pt on IMM. No questions voiced. Provided pt a copy. Initialed, dated, & timed a copy & placed in chart.
[2025-04-28 13:00] LABS: Blood Gas LPM 3.0 %; Blood Gas Operator Identificat MONRO; Blood Gas Sample Site Brachial, right; PO2 FiO2 Ratio Arterial Blood 258
--- NOTE | 2025-04-28 15:05 | USCV_ITS ---
Philippe Dahl Age: 74 Gender: M : 1950 Exam Date: 04/28/2025 15:47 Ordering Phys: Maria Guadalupe Cedillo MD Technologist: Exam Location: [facility] – [place] Indication: ef BP: 99 / 75 HR: Rhythm: Sinus Technical Quality: Adequate MEASUREMENTS (Male / Female) Normal Values 2D ECHO LV Diastolic Diameter PLAX 5.4 cm 4.2 - 5.9 / 3.9 - 5.3 cm IVS Diastolic Thickness 1.0 cm 0.6 - 1.0 / 0.6 - 0.9 cm IVS Systolic Thickness 1.3 cm LVPW Diastolic Thickness 1.3 cm 0.6 - 1.0 / 0.6 - 0.9 cm LVPW Systolic Thickness 1.5 cm LVOT Diameter 2.1 cm LV Ejection Fraction 2D Teich 45.9 % LV Ejection Fraction MOD 4C 50.5 % LV Ejection Fraction MOD 2C 44.6 % LV Ejection Fraction 2C AL 42.9 % LA Diameter 4.0 cm RA Systolic Volume 4C AL 54.9 ml RA Systolic Volume 4C MOD 55.8 ml IVC Diameter 2.2 cm M-MODE LA Ao Ratio MM 1.6 AV Cusp Separation MM 1.3 cm FINDINGS Left Ventricle Moderately increased left ventricular cavity size. Moderately decreased left ventricular systolic function. Left ventricular ejection fraction is estimated at 40 %. There appeared to be mid to distal anterior and apical akinesis suggestive of ischemic heart disease. Right Ventricle Right Atrium Left Atrium IA Septum Mitral Valve Aortic Valve Severely calcified aortic valve probably moderate to severe aortic valve stenosis Tricuspid Valve Pulmonic Valve Pericardium Aorta IVC CONCLUSIONS Limited echo Moderately increased left ventricular cavity size. Moderately decreased left ventricular systolic function. Left ventricular ejection fraction is estimated at 40 %. There appeared to be mid to distal anterior and apical akinesis suggestive of ischemic heart disease. Severely calcified aortic valve probably moderate to severe aortic valve stenosis There is no pericardial effusion. Eric Brady MD (Electronically Signed) Final Date: 29 April 2025 20:12 S
--- NOTE | 2025-04-28 15:05 | US_ITS ---
WS: [id number] Ultrasound chest, limited. HISTORY: Evaluate for pleural effusions. COMPARISON: Chest CT 04/27/2025. Small bilateral pleural effusions are present. These effusions are small and there is atelectatic lung present. RIGHT pleural effusion is slightly greater in size than the LEFT. US/US chest [id number] IMPRESSION: Small bilateral pleural effusions, RIGHT greater than LEFT.
--- NOTE | 2025-04-28 15:24 | P.PN_ITS ---
Subjective 2 Subjective: Overall unchanged respiratory status. Lasix was held this morning due to relative hypotension. Maps are well-maintained this morning. Medications: Reviewed: Yes Vitals/I&O/Wt Last Vital Signs Temp 98.2 F 04/28/25 03:57 Pulse 92 04/28/25 14:00 Resp 32 H 04/28/25 14:00 BP 98/73 04/28/25 14:00 Pulse Ox 95 04/28/25 14:00 O2 Del Method Nasal Cannula 04/28/25 11:21 O2 Flow Rate 3 04/28/25 11:21 04/28/25 04/28/25 04/28/25 06:59 14:59 22:59 Intake Total 170 / 1180 460 / 460 Output Total 800 / 2150 550 / 550 Balance -630 / -970 -90 / -90 Weight last 48 hrs Weight 79.294 kg Weight 79.3 kg Weight 79.1 kg Physical Exam 2 Narrative: General: No acute distress, AO x3 HEENT: PERRLA, pupils bilaterally equal and reactive, pallors not present Chest: Diffuse crackles to auscultation bilaterally CVS: S1-S2 regular, no murmurs, no tachycardia, no gallops, no rubs Abdomen: Soft, nontender, no organomegaly, bowel sounds present Neuro: No focal deficits, no facial deformity, AO x3, power 5/5 in all limbs Extremities: Pitting edema bilaterally lower extremities Data 04/28/25 05:02 04/28/25 05:02 Micro: Microbiology 04/27/25 11:30 Sputum Culture - Preliminary Sputum - Expectorated Sputum A&P Assessment and plan 1. Acute on chronic hypoxic respiratory failure: Patient found to have high proBNP around 10,000, delta Trope were not significantly raised, EKG reviewed Recent echo showed ejection fraction of 40 to 45%, Diuresing well (net -1.6 L over the last 24 hours) cardio consulted and recommended: Hypotension limiting guideline directed medical therapy for CHF Continue Lasix 40 mg IV twice daily Continue midodrine 10 mg 3 times daily Start ivabradine 5 mg twice daily?if not on our formulary this could be started as an outpatient recommended stress test prior to discharge due to his history of CAD/CABG and frequent hospitalizations for CHF exacerbations. Stress test would be in the form of a Lexiscan nuclear stress test. Lower extremity compression socks Once euvolemic, recommend changing Lasix to Jardiance and spironolactone combination Start digoxin 0.25mg IV q 6hours x 2 then 0.125mg po daily Patient compliant to his medication, and may need to adjust his diuretics as inpatient and later to follow as outpatient Daily weight base analysis 2. Acute on chronic heart failure with reduced ejection fraction (HFrEF, <= 40%) and combined systolic and diastolic dysfunction: Cardiology on board Continue diuresis along with the support of Lasix to support the blood pressure Midodrine 10 mg 3 times daily Aspirin and statin to continue Telemetry monitoring Intake and output monitoring Daily weight analysis 3. Afib: Low A-fib burden of 1.4% according to pacemaker interrogation 04/04/2025 Continue Eliquis metoprolol on hold currently due to hypotension Continue on aspirin Start digoxin 0.25mg IV q 6hours x 2 then 0.125mg po daily 4. ICD (implantable cardioverter-defibrillator) in place: Functioning well 5. Hypotension: Continue midodrine 10 3 times daily 1 dose of albumin to give Monitor blood pressure 6. Chronic obstructive pulmonary disease, unspecified COPD type: Patient not having any features of COPD exacerbation at the moment Continue treatment with ipratropium, budesonide and lev albuterol prednisone 40mg oral daily for 5 days Oxygen therapy as per protocol 7. GERD (gastroesophageal reflux disease): PPI daily 8. Hyperlipidemia: Continue home dose statins 9. Transaminitis: Could be related to congestive hepatomegaly currently improving Ultrasound liver showed coarse hepatic echotexture with possible hepatic steatosis Follow liver enzymes daily 10. Encounter for screening involving social determinants of health (SDoH): Patient had multiple recurrent admissions, case management involved. Patient has home health aide as his daughter. Case management involved for possible transfer to SNF/assisted for further improvement OT PT evaluation 11. Thrombocytopenia: Plan: VTE: Intermittent compression devices. Patient platelets are low Diet: Cardiac 04/26/2025. 74-year-old male with known history of COPD, typically on 2 L/min supplemental O2, history of CHF, last echocardiogram from April 05, 2025 with ejection fraction of 40 to 45% with mild global hypokinesia. He is currently admitted with acute on chronic worsening hypoxemic respiratory failure. Likely related to acute on chronic systolic CHF exacerbation. Patient is currently on diuresis with Lasix 40 mg IV every 12 hours which we will continue. His IV diuresis was interrupted overnight due to soft blood pressure. He is currently on midodrine 10 mg 3 times daily. Goal-directed medical therapy for heart failure has been unable to be optimized due to soft BP. Discussed with cardiology starting low-dose dopamine to maintain blood pressure however currently the concern is that it may worsen his tachycardia therefore holding off. Midodrine has been increased to 15 mg 3 times daily and Lasix increased to 20 mg IV every 8 hours per cardiology recommendations. Continue IV diuresis. Urine output 980 cc last 24 hours. Net -1200 cc. Bladder scan today to ensure no urinary retention contributing to lower output. Crackles on exam today diffusely. It will be critical to maintain his IV diuresis. Oxygen requirement up at 3 L/min today. Check chest x-ray. Platelet count dropping to 51,000 today, currently uncertain as to the reason for this drop. Reviewing his prior admission, his platelet count was at 197 on April 08, 2025, lowest platelet count in the past has been at 149. I do not see any mention of thrombocytopenia on his past medical history. LFTs noted to be mildly elevated. Ultrasound showing hepatic steatosis. No known history of cirrhosis. Will check peripheral smear to assess for platelet clumping and focal thrombocytopenia. Check CBC with manual differential to confirm thrombocytopenia. Hold Eliquis as patient had mild hemoptysis this morning along with the platelet count of 50,000. Unlikely HIT as patient has not been exposed to any heparin products during this admission. Check respiratory viral panel as from the cytopenia and deranged LFTs may be related to acute viral infection. He has been afebrile this current admission. Changed to inpatient admission 04/27/2025 Continues to have bilateral crackles. Increased amount of expectoration today, however bleeding does not appear to have increased with regards to hemoptysis. Holding Eliquis today again. Net -1.4 L. Negative respiratory viral panel. No fever or leukocytosis. Will obtain CT of the chest today to assess for edema, worsening effusion versus possibly developing pneumonia given increased crackles and increased expectoration today. Low probability of PE given patient is chronically on Eliquis. Continue diuresis with Lasix 20 mg IV 3 times daily. Blood pressure lowest 89/61, MAP over 65 on midodrine 15 mg 3 times daily. Will discuss with cardiology if may benefit from Lasix drip. Platelet count improving at 69,000 today. Unclear cause. Hepatitis serology negative for hep A IgM. Hep B core total antibody positive however surface antigen negative consistent with past infection. Hepatitis C Ab positive, pending hep C PCR. No evidence of cirrhosis on ultrasound imaging. Pending peripheral smear. 04/28/2025 Continues to have bilateral crackles, however somewhat improved compared to yesterday. More predominant in the left lower lobe today. CT of the chest was performed yesterday which showed pneumonia. IV piperacillin/tazobactam and doxycycline was added at the time. Speech therapy evaluation requested due to concern for aspiration. Platelet count at 70,000, stable. CT chest additionally showed a moderate left pleural effusion. Ultrasound of the chest ordered today to estimate extent of fluid if amenable to thoracentesis. Hep C PCR not detected. Consistent with past infection. Increase diuresis today to 40 mg IV 3 times daily Lasix. Pending sputum culture and Gram stain. MRSA nasal screen negative. PDMP PDMP Reviewed: Not Reviewed Attestations 2 Medical Necessity Statement*: Continued need for IV diuresis Coding Level of Care Code Acute Code for Chg Fwd High MDM includes number and complexity of problems actively addressed during encounter, amount and/or complexity of data reviewed/ordered and described risk of complication, morbidity or mortality of management as documented Diagnoses Acute on chronic hypoxic respiratory failure J96.21 Acute on chronic heart failure with reduced ejection fraction (HFrEF, <= 40%) and combined systolic and diastolic dysfunction I50.43 Afib I48.91 ICD (implantable cardioverter-defibrillator) in place Z95.810 Hypotension I95.9 Chronic obstructive pulmonary disease, unspecified COPD type J44.9 COPD type: unspecified COPD GERD (gastroesophageal reflux disease) K21.9 Hyperlipidemia E78.5 Transaminitis R74.01 Encounter for screening involving social determinants of health (SDoH) Z13.9 Thrombocytopenia D69.6
[2025-04-28] MEDS: pantoprazole 40 mg SDV IVP (17:15)
[2025-04-29] VITALS (14 sets, daily range): BP systolic 92–113; BP diastolic 70–88; PULSE 81–99; RESP 16–29; TEMP 36.2–36.8; O2SAT 94–100
[2025-04-29] MEDS: piperacillin-tazobactam 3.375 GM in sodium chloride 0.9% (plus) 50 ML IV ×3 (02:47→17:13)
[2025-04-29] MEDS: FUROsemide 10 mg/mL SDV 4mL 40 MG IVP ×2 (04:41→12:14)
[2025-04-29 05:24] LABS: Hematocrit 33.6 % (37-53); Hemoglobin 10.50 g/dL (11.27-16.99); Mean Corpuscular HGB Conc 31.3 g/dL (30-55); Mean Corpuscular Hemoglobin 29.5 pg (27-33); Mean Corpuscular Volume 94.4 fl (82-101); Nucleated Red Blood Cells % 0 %; Platelet Count 88 10^3/cmm (157-399); Red Blood Count 3.56 10^6/uL (3.85-5.65); White Blood Count 4.43 10^3/uL (3.29-11.43)
[2025-04-29 05:43] LABS: Digoxin 0.5 ng/mL (0.6-1.2)
[2025-04-29 05:44] LABS: Alanine Aminotransferase 81 U/L (0-41); Albumin Level 3.4 g/dL (3.5-5.2); Alkaline Phosphatase 198 U/L (40-130); Anion Gap 12.2 (5-19); Aspartate Amino Transferase 28 U/L (0-40); Blood Urea Nitrogen 17 mg/dL (8-23); Calcium 8.8 mg/dL (8.5-10.5); Carbon Dioxide 32 mmol/L (22-29); Chloride 99 mmol/L (98-107); Globulin 1.4 g/dL (1.3-4.6); Glucose 216 mg/dL (65-115); Osmolality Calculated 296 mOsm/kg (285-295); Potassium 4.2 mmol/L (3.5-5.1); Sodium 139 mmol/L (136-145); Total Protein 4.8 g/dL (6.6-8.7)
[2025-04-29 08:31] LABS: Magnesium 2.1 mg/dL (1.7-2.3)
--- NOTE | 2025-04-29 12:48 | P.PN_ITS ---
<Statement entered by Eric Brady MD - 04/30/25 19:30> Patient was evaluated and cared for in conjunction with an advanced practice practitioner. I personally examined the patient and reviewed the chart and all pertinent data including imaging, telemetry, and laboratory results. I discussed the patient in detail with the advanced practice practitioner. Please see their note for complete H&P testing result and agreed upon plan of care for the patient. Subjective 2 Subjective: Shortness of breath improved, he is sitting up in the chair today. Continue IV diuresis with Lasix 40mg TID. He is -1100mL in the last 24 hours, -2900mL cumulative. Digoxin level 0.5 today. Magnesium level 2.1. Vitals/I&O/Wt Last Vital Signs Temp 98.0 F 04/29/25 11:09 Pulse 83 04/29/25 12:13 Resp 18 04/29/25 11:40 BP 100/80 04/29/25 11:09 Pulse Ox 100 04/29/25 11:40 O2 Del Method Nasal Cannula 04/29/25 11:40 O2 Flow Rate 3 04/29/25 11:40 04/28/25 04/29/25 04/29/25 22:59 06:59 14:59 Intake Total 50 / 750 240 / 750 530 / 530 Output Total 750 / 1900 600 / 1900 Balance -700 / -1150 -360 / -1150 530 / 530 Weight last 48 hrs Weight 172 lb 6.424 oz Weight 174 lb 13 oz Weight 174 lb 13.225 oz Physical Exam 2 Const: COMMON NORMALS: no acute distress and patient oriented x3 GENERAL APPEARANCE: cooperative and comfortable ORIENTATION/CONSCIOUSNESS: Yes awake, Yes oriented to person, Yes oriented to place and Yes oriented to time Chest: COMMONS NORMALS: normal inspection of the chest and normal palpation of entire chest wall CHEST: Yes Symmetrical chest wall rise Resp: COMMON NORMALS: normal respiratory effort, No retractions and No use of accessory muscles EFFORT & INSPECTION: Yes symmetric chest movement A USCULTATION: crackles (bases) Laterality: bilateral and posterior Cardio: COMMON NORMALS: regular rate, regular rhythm, S1 normal heart sound present, S2 normal heart sound present, No gallops present (Cardio), No clicks present (Cardio), No murmurs present (Cardio) and No rub (Cardio) RATE: r egular rate RHYTHM: regular rhythm HEART SOUNDS: S1 normal heart sound present and S2 normal heart sound present PERIPHERAL PULSES: radial pulses present Extremity: COMMON NORMALS: no pedal edema Neuro: COMMON NORMALS: patient oriented x3 and moves all extremities S ENSORIUM/ORIENTATION: Yes oriented to person, Yes oriented to place and Yes oriented to time Data 04/29/25 04:51 04/29/25 04:51 Micro: Microbiology 04/27/25 11:30 Sputum Culture - Preliminary Sputum - Expectorated Sputum A&P Assessment and plan 1. Acute on chronic heart failure with reduced ejection fraction (HFrEF, <= 40%) and combined systolic and diastolic dysfunction: 2. Dyspnea on exertion: 3. ICD (implantable cardioverter-defibrillator) in place: 4. PAF (paroxysmal atrial fibrillation): 5. CAD (coronary artery disease): 6. Chronic obstructive pulmonary disease, unspecified COPD type: 7. Acute on chronic hypoxic respiratory failure: Plan: He is doing better, continue IV diuresis with Lasix 40mg TID, midodrine 15mg TID. Continue digoxin, metoprolol, aspirin, Eliquis, statin. PDMP PDMP Reviewed: Not Reviewed Attestations 2 Medical Necessity Statement*: IV diuresis Coding Level of Care Code Acute Code for Chg Fwd Diagnoses Acute on chronic heart failure with reduced ejection fraction (HFrEF, <= 40%) and combined systolic and diastolic dysfunction I50.43 Dyspnea on exertion R06.09 ICD (implantable cardioverter-defibrillator) in place Z95.810 PAF (paroxysmal atrial fibrillation) I48.0 CAD (coronary artery disease) I25.10 Chronic obstructive pulmonary disease, unspecified COPD type J44.9 COPD type: unspecified COPD Acute on chronic hypoxic respiratory failure J96.21
--- NOTE | 2025-04-29 15:22 | P.PN_ITS ---
Subjective 2 Subjective: clinically improving today, less tachypneic, tachycardia improving. MAP maintained. net negative 1.9 L now Medications: Reviewed: Yes Vitals/I&O/Wt Last Vital Signs Temp 98.0 F 04/29/25 11:09 Pulse 84 04/29/25 15:03 Resp 16 04/29/25 15:02 BP 100/80 04/29/25 11:09 Pulse Ox 96 04/29/25 15:02 O2 Del Method Nasal Cannula 04/29/25 15:02 O2 Flow Rate 2 04/29/25 15:02 04/29/25 04/29/25 04/29/25 06:59 14:59 22:59 Intake Total 240 / 750 1010 / 1010 Output Total 600 / 1900 Balance -360 / -1150 1010 / 1010 Weight last 48 hrs Weight 78.2 kg Weight 79.294 kg Weight 79.3 kg Physical Exam 2 Narrative: General: No acute distress, AO x3 HEENT: PERRLA, pupils bilaterally equal and reactive, pallors not present Chest: improving crackles B/L CVS: S1-S2 regular, no murmurs, no tachycardia, no gallops, no rubs Abdomen: Soft, nontender, no organomegaly, bowel sounds present Neuro: No focal deficits, no facial deformity, AO x3, power 5/5 in all limbs Extremities: Pitting edema bilaterally lower extremities Data 04/29/25 04:51 04/29/25 04:51 Micro: Microbiology 04/27/25 11:30 Sputum Culture - Final Sputum - Expectorated Sputum A&P Assessment and plan 1. Acute on chronic hypoxic respiratory failure: Patient found to have high proBNP around 10,000, delta Trope were not significantly raised, EKG reviewed Recent echo showed ejection fraction of 40 to 45%, Diuresing well (net -1.6 L over the last 24 hours) cardio consulted and recommended: Hypotension limiting guideline directed medical therapy for CHF Continue Lasix 40 mg IV twice daily Continue midodrine 10 mg 3 times daily Start ivabradine 5 mg twice daily?if not on our formulary this could be started as an outpatient recommended stress test prior to discharge due to his history of CAD/CABG and frequent hospitalizations for CHF exacerbations. Stress test would be in the form of a Lexiscan nuclear stress test. Lower extremity compression socks Once euvolemic, recommend changing Lasix to Jardiance and spironolactone combination Start digoxin 0.25mg IV q 6hours x 2 then 0.125mg po daily Patient compliant to his medication, and may need to adjust his diuretics as inpatient and later to follow as outpatient Daily weight base analysis 2. Acute on chronic heart failure with reduced ejection fraction (HFrEF, <= 40%) and combined systolic and diastolic dysfunction: Cardiology on board Continue diuresis along with the support of Lasix to support the blood pressure Midodrine 10 mg 3 times daily Aspirin and statin to continue Telemetry monitoring Intake and output monitoring Daily weight analysis 3. Afib: Low A-fib burden of 1.4% according to pacemaker interrogation 04/04/2025 Continue Eliquis metoprolol on hold currently due to hypotension Continue on aspirin Start digoxin 0.25mg IV q 6hours x 2 then 0.125mg po daily 4. ICD (implantable cardioverter-defibrillator) in place: Functioning well 5. Hypotension: Continue midodrine 10 3 times daily 1 dose of albumin to give Monitor blood pressure 6. Chronic obstructive pulmonary disease, unspecified COPD type: Patient not having any features of COPD exacerbation at the moment Continue treatment with ipratropium, budesonide and lev albuterol prednisone 40mg oral daily for 5 days Oxygen therapy as per protocol 7. GERD (gastroesophageal reflux disease): PPI daily 8. Hyperlipidemia: Continue home dose statins 9. Transaminitis: Could be related to congestive hepatomegaly currently improving Ultrasound liver showed coarse hepatic echotexture with possible hepatic steatosis Follow liver enzymes daily 10. Encounter for screening involving social determinants of health (SDoH): Patient had multiple recurrent admissions, case management involved. Patient has home health aide as his daughter. Case management involved for possible transfer to SNF/[facility] for further improvement OT PT evaluation 11. Thrombocytopenia: Plan: VTE: Intermittent compression devices. Patient platelets are low Diet: Cardiac 04/26/2025. 74-year-old male with known history of COPD, typically on 2 L/min supplemental O2, history of CHF, last echocardiogram from April 05, 2025 with ejection fraction of 40 to 45% with mild global hypokinesia. He is currently admitted with acute on chronic worsening hypoxemic respiratory failure. Likely related to acute on chronic systolic CHF exacerbation. Patient is currently on diuresis with Lasix 40 mg IV every 12 hours which we will continue. His IV diuresis was interrupted overnight due to soft blood pressure. He is currently on midodrine 10 mg 3 times daily. Goal-directed medical therapy for heart failure has been unable to be optimized due to soft BP. Discussed with cardiology starting low-dose dopamine to maintain blood pressure however currently the concern is that it may worsen his tachycardia therefore holding off. Midodrine has been increased to 15 mg 3 times daily and Lasix increased to 20 mg IV every 8 hours per cardiology recommendations. Continue IV diuresis. Urine output 980 cc last 24 hours. Net -1200 cc. Bladder scan today to ensure no urinary retention contributing to lower output. Crackles on exam today diffusely. It will be critical to maintain his IV diuresis. Oxygen requirement up at 3 L/min today. Check chest x-ray. Platelet count dropping to 51,000 today, currently uncertain as to the reason for this drop. Reviewing his prior admission, his platelet count was at 197 on April 08, 2025, lowest platelet count in the past has been at 149. I do not see any mention of thrombocytopenia on his past medical history. LFTs noted to be mildly elevated. Ultrasound showing hepatic steatosis. No known history of cirrhosis. Will check peripheral smear to assess for platelet clumping and focal thrombocytopenia. Check CBC with manual differential to confirm thrombocytopenia. Hold Eliquis as patient had mild hemoptysis this morning along with the platelet count of 50,000. Unlikely HIT as patient has not been exposed to any heparin products during this admission. Check respiratory viral panel as from the cytopenia and deranged LFTs may be related to acute viral infection. He has been afebrile this current admission. Changed to inpatient admission 04/27/2025 Continues to have bilateral crackles. Increased amount of expectoration today, however bleeding does not appear to have increased with regards to hemoptysis. Holding Eliquis today again. Net -1.4 L. Negative respiratory viral panel. No fever or leukocytosis. Will obtain CT of the chest today to assess for edema, worsening effusion versus possibly developing pneumonia given increased crackles and increased expectoration today. Low probability of PE given patient is chronically on Eliquis. Continue diuresis with Lasix 20 mg IV 3 times daily. Blood pressure lowest 89/61, MAP over 65 on midodrine 15 mg 3 times daily. Will discuss with cardiology if may benefit from Lasix drip. Platelet count improving at 69,000 today. Unclear cause. Hepatitis serology negative for hep A IgM. Hep B core total antibody positive however surface antigen negative consistent with past infection. Hepatitis C Ab positive, pending hep C PCR. No evidence of cirrhosis on ultrasound imaging. Pending peripheral smear. 04/28/2025 Continues to have bilateral crackles, however somewhat improved compared to yesterday. More predominant in the left lower lobe today. CT of the chest was performed yesterday which showed pneumonia. IV piperacillin/tazobactam and doxycycline was added at the time. Speech therapy evaluation requested due to concern for aspiration. Platelet count at 70,000, stable. CT chest additionally showed a moderate left pleural effusion. Ultrasound of the chest ordered today to estimate extent of fluid if amenable to thoracentesis. Hep C PCR not detected. Consistent with past infection. Increase diuresis today to 40 mg IV 3 times daily Lasix. Pending sputum culture and Gram stain. MRSA nasal screen negative. 04/29/2025 : clinically improving today. breathing is less labored. net negative 1.9L. continue iv lasix 40 mg tid. continue zosyn and doxycycline. USG chest with small effusions, not amenable to thoracentessis. Encourage OOB PDMP PDMP Reviewed: Not Reviewed Attestations 2 Medical Necessity Statement*: continue iv diuresis, iv abx, clinically better today Coding Level of Care Code Acute Code for Chg Fwd Diagnoses Acute on chronic hypoxic respiratory failure J96.21 Acute on chronic heart failure with reduced ejection fraction (HFrEF, <= 40%) and combined systolic and diastolic dysfunction I50.43 Afib I48.91 ICD (implantable cardioverter-defibrillator) in place Z95.810 Hypotension I95.9 Chronic obstructive pulmonary disease, unspecified COPD type J44.9 COPD type: unspecified COPD GERD (gastroesophageal reflux disease) K21.9 Hyperlipidemia E78.5 Transaminitis R74.01 Encounter for screening involving social determinants of health (SDoH) Z13.9 Thrombocytopenia D69.6
[2025-04-29] MEDS: pantoprazole 40 mg SDV IVP (17:13)
[2025-04-30] VITALS (12 sets, daily range): BP systolic 90–108; BP diastolic 64–84; PULSE 75–92; RESP 12–26; TEMP 36.3–36.7; O2SAT 93–98
[2025-04-30] MEDS: piperacillin-tazobactam 3.375 GM in sodium chloride 0.9% (plus) 50 ML IV ×3 (03:20→17:06)
[2025-04-30] MEDS: FUROsemide 10 mg/mL SDV 4mL 40 MG IVP (05:27)
--- NOTE | 2025-04-30 08:20 | P.PN_ITS ---
Subjective 2 Subjective: Continues to improve clinically. States breathing is better today. Medications: Reviewed: Yes Vitals/I&O/Wt Last Vital Signs Temp 97.3 F L 04/30/25 07:35 Pulse 85 04/30/25 07:35 Resp 26 H 04/30/25 05:33 BP 108/84 04/30/25 07:35 Pulse Ox 96 04/30/25 07:35 O2 Del Method Room Air 04/30/25 07:35 O2 Flow Rate 3 04/29/25 21:28 04/29/25 04/30/25 04/30/25 22:59 06:59 14:59 Intake Total 50 / 1110 240 / 1350 50 / 50 Output Total 625 / 625 400 / 1025 Balance -575 / 485 -160 / 325 50 / 50 Weight last 48 hrs Weight 81.9 kg Weight 78.2 kg Physical Exam 2 Narrative: General: No acute distress, AO x3 HEENT: PERRLA, pupils bilaterally equal and reactive, pallors not present Chest: Normal vesicular breath sounds, no added sounds, equal good air entry bilaterally CVS: S1-S2 regular, no murmurs, no tachycardia, no gallops, no rubs Abdomen: Soft, nontender, no organomegaly, bowel sounds present Neuro: No focal deficits, no facial deformity, AO x3, power 5/5 in all limbs Data 04/30/25 08:02 04/30/25 08:02 Micro: Microbiology 04/27/25 11:30 Sputum Culture - Final Sputum - Expectorated Sputum A&P Assessment and plan 1. Acute on chronic hypoxic respiratory failure: Patient found to have high proBNP around 10,000, delta Trope were not significantly raised, EKG reviewed Recent echo showed ejection fraction of 40 to 45%, Diuresing well (net -1.6 L over the last 24 hours) cardio consulted and recommended: Hypotension limiting guideline directed medical therapy for CHF Continue Lasix 40 mg IV twice daily Continue midodrine 10 mg 3 times daily Start ivabradine 5 mg twice daily?if not on our formulary this could be started as an outpatient recommended stress test prior to discharge due to his history of CAD/CABG and frequent hospitalizations for CHF exacerbations. Stress test would be in the form of a Lexiscan nuclear stress test. Lower extremity compression socks Once euvolemic, recommend changing Lasix to Jardiance and spironolactone combination Start digoxin 0.25mg IV q 6hours x 2 then 0.125mg po daily Patient compliant to his medication, and may need to adjust his diuretics as inpatient and later to follow as outpatient Daily weight base analysis 2. Acute on chronic heart failure with reduced ejection fraction (HFrEF, <= 40%) and combined systolic and diastolic dysfunction: Cardiology on board Continue diuresis along with the support of Lasix to support the blood pressure Midodrine 10 mg 3 times daily Aspirin and statin to continue Telemetry monitoring Intake and output monitoring Daily weight analysis 3. Afib: Low A-fib burden of 1.4% according to pacemaker interrogation 04/04/2025 Continue Eliquis metoprolol on hold currently due to hypotension Continue on aspirin Start digoxin 0.25mg IV q 6hours x 2 then 0.125mg po daily 4. ICD (implantable cardioverter-defibrillator) in place: Functioning well 5. Hypotension: Continue midodrine 10 3 times daily 1 dose of albumin to give Monitor blood pressure 6. Chronic obstructive pulmonary disease, unspecified COPD type: Patient not having any features of COPD exacerbation at the moment Continue treatment with ipratropium, budesonide and lev albuterol prednisone 40mg oral daily for 5 days Oxygen therapy as per protocol 7. GERD (gastroesophageal reflux disease): PPI daily 8. Hyperlipidemia: Continue home dose statins 9. Transaminitis: Could be related to congestive hepatomegaly currently improving Ultrasound liver showed coarse hepatic echotexture with possible hepatic steatosis Follow liver enzymes daily 10. Encounter for screening involving social determinants of health (SDoH): Patient had multiple recurrent admissions, case management involved. Patient has home health aide as his daughter. Case management involved for possible transfer to SNF/jail for further improvement OT PT evaluation 11. Thrombocytopenia: Plan: VTE: Intermittent compression devices. Patient platelets are low Diet: Cardiac 04/26/2025. 74-year-old male with known history of COPD, typically on 2 L/min supplemental O2, history of CHF, last echocardiogram from April 05, 2025 with ejection fraction of 40 to 45% with mild global hypokinesia. He is currently admitted with acute on chronic worsening hypoxemic respiratory failure. Likely related to acute on chronic systolic CHF exacerbation. Patient is currently on diuresis with Lasix 40 mg IV every 12 hours which we will continue. His IV diuresis was interrupted overnight due to soft blood pressure. He is currently on midodrine 10 mg 3 times daily. Goal-directed medical therapy for heart failure has been unable to be optimized due to soft BP. Discussed with cardiology starting low-dose dopamine to maintain blood pressure however currently the concern is that it may worsen his tachycardia therefore holding off. Midodrine has been increased to 15 mg 3 times daily and Lasix increased to 20 mg IV every 8 hours per cardiology recommendations. Continue IV diuresis. Urine output 980 cc last 24 hours. Net -1200 cc. Bladder scan today to ensure no urinary retention contributing to lower output. Crackles on exam today diffusely. It will be critical to maintain his IV diuresis. Oxygen requirement up at 3 L/min today. Check chest x-ray. Platelet count dropping to 51,000 today, currently uncertain as to the reason for this drop. Reviewing his prior admission, his platelet count was at 197 on April 08, 2025, lowest platelet count in the past has been at 149. I do not see any mention of thrombocytopenia on his past medical history. LFTs noted to be mildly elevated. Ultrasound showing hepatic steatosis. No known history of cirrhosis. Will check peripheral smear to assess for platelet clumping and focal thrombocytopenia. Check CBC with manual differential to confirm thrombocytopenia. Hold Eliquis as patient had mild hemoptysis this morning along with the platelet count of 50,000. Unlikely HIT as patient has not been exposed to any heparin products during this admission. Check respiratory viral panel as from the cytopenia and deranged LFTs may be related to acute viral infection. He has been afebrile this current admission. Changed to inpatient admission 04/27/2025 Continues to have bilateral crackles. Increased amount of expectoration today, however bleeding does not appear to have increased with regards to hemoptysis. Holding Eliquis today again. Net -1.4 L. Negative respiratory viral panel. No fever or leukocytosis. Will obtain CT of the chest today to assess for edema, worsening effusion versus possibly developing pneumonia given increased crackles and increased expectoration today. Low probability of PE given patient is chronically on Eliquis. Continue diuresis with Lasix 20 mg IV 3 times daily. Blood pressure lowest 89/61, MAP over 65 on midodrine 15 mg 3 times daily. Will discuss with cardiology if may benefit from Lasix drip. Platelet count improving at 69,000 today. Unclear cause. Hepatitis serology negative for hep A IgM. Hep B core total antibody positive however surface antigen negative consistent with past infection. Hepatitis C Ab positive, pending hep C PCR. No evidence of cirrhosis on ultrasound imaging. Pending peripheral smear. 04/28/2025 Continues to have bilateral crackles, however somewhat improved compared to yesterday. More predominant in the left lower lobe today. CT of the chest was performed yesterday which showed pneumonia. IV piperacillin/tazobactam and doxycycline was added at the time. Speech therapy evaluation requested due to concern for aspiration. Platelet count at 70,000, stable. CT chest additionally showed a moderate left pleural effusion. Ultrasound of the chest ordered today to estimate extent of fluid if amenable to thoracentesis. Hep C PCR not detected. Consistent with past infection. Increase diuresis today to 40 mg IV 3 times daily Lasix. Pending sputum culture and Gram stain. MRSA nasal screen negative. 04/29/2025 : clinically improving today. breathing is less labored. net negative 1.9L. continue iv lasix 40 mg tid. continue zosyn and doxycycline. USG chest with small effusions, not amenable to thoracentessis. Encourage OOB 04/30/2025 Clinically improving. Discontinue IV Lasix. Transition to 40 mg p.o. twice daily Lasix. Continue Zosyn and doxycycline. Participated with physical therapy today. Continue to encourage ambulation. Plan for stress test on Saturday per cardiology. Thrombocytopenia resolving, currently at 155. Hemoptysis resolved. Will resume anticoagulation. Using full dose Lovenox instead of Eliquis for now in case stress test is abnormal and needs an angiogram in follow-up. PDMP PDMP Reviewed: Not Reviewed Attestations 2 Medical Necessity Statement*: Transition IV to oral diuresis, continue IV antibiotics. Plan stress test on Saturday Coding Level of Care Code Acute Code for Chg Fwd Diagnoses Acute on chronic hypoxic respiratory failure J96.21 Acute on chronic heart failure with reduced ejection fraction (HFrEF, <= 40%) and combined systolic and diastolic dysfunction I50.43 Afib I48.91 ICD (implantable cardioverter-defibrillator) in place Z95.810 Hypotension I95.9 Chronic obstructive pulmonary disease, unspecified COPD type J44.9 COPD type: unspecified COPD GERD (gastroesophageal reflux disease) K21.9 Hyperlipidemia E78.5 Transaminitis R74.01 Encounter for screening involving social determinants of health (SDoH) Z13.9 Thrombocytopenia D69.6
[2025-04-30 08:26] LABS: Hematocrit 35.3 % (37-53); Hemoglobin 11.10 g/dL (11.27-16.99); Mean Corpuscular HGB Conc 31.4 g/dL (30-55); Mean Corpuscular Hemoglobin 29.9 pg (27-33); Mean Corpuscular Volume 95.1 fl (82-101); Nucleated Red Blood Cells % 0 %; Platelet Count 155 10^3/cmm (157-399); Red Blood Count 3.71 10^6/uL (3.85-5.65); White Blood Count 7.42 10^3/uL (3.29-11.43)
[2025-04-30 08:41] LABS: Alanine Aminotransferase 71 U/L (0-41); Albumin Level 3.4 g/dL (3.5-5.2); Alkaline Phosphatase 192 U/L (40-130); Anion Gap 13.4 (5-19); Aspartate Amino Transferase 25 U/L (0-40); Blood Urea Nitrogen 19 mg/dL (8-23); Calcium 8.9 mg/dL (8.5-10.5); Carbon Dioxide 32 mmol/L (22-29); Chloride 98 mmol/L (98-107); Globulin 1.7 g/dL (1.3-4.6); Glucose 232 mg/dL (65-115); Osmolality Calculated 298 mOsm/kg (285-295); Potassium 4.4 mmol/L (3.5-5.1); Sodium 139 mmol/L (136-145); Total Protein 5.1 g/dL (6.6-8.7)
--- NOTE | 2025-04-30 11:03 | PC.SOCIAL ---
IMM Updated Updated pt on IMM. No questions voiced. Provided pt a copy. Initialed, dated, & timed copy in chart.
--- NOTE | 2025-04-30 13:16 | P.PN_ITS ---
<Statement entered by Eric Brady MD - 04/30/25 19:11> Patient was evaluated and cared for in conjunction with an advanced practice practitioner. I personally examined the patient and reviewed the chart and all pertinent data including imaging, telemetry, and laboratory results. I discussed the patient in detail with the advanced practice practitioner. Please see their note for complete H&P testing result and agreed upon plan of care for the patient. 1 episode of sustained ventricular tachycardia aborted with ICD, couple of nonsustained VT's Patient appeared to be euvolemic GENERAL: Patient is alert, awake and oriented x3. HEART: Regular S1 and S2. No murmur, rub or gallop. LUNGS: Clear to auscultate bilaterally. CENTRAL NERVOUS SYSTEM: Grossly nonfocal. EXTREMITIES: Lower extremities with out edema bilaterally. Assessment and plan ischemic cardiomyopathy status post CABG 1 year ago Severe LV dysfunction Acute decompensated systolic heart failure Pneumonia Patient at the moment appeared to be euvolemic, switch to p.o. Lasix Possible discharge tomorrow Subjective 2 Subjective: He had runs of nonsustained VT 7-10 beats in duration overnight last night. He had the long 42 beat run that was shocked by his ICD on 04/27. Given that he had CABG earlier this year, will plan for Lexiscan stress test on Saturday to rule out ischemic cause of VT. He appears euvolemic, noting some hypotension into the upper 70s systolic this morning, switching to oral Lasix 40 mg daily. Vitals/I&O/Wt Last Vital Signs Temp 97.7 F 04/30/25 11:47 Pulse 87 04/30/25 12:11 Resp 20 H 04/30/25 11:47 BP 93/73 04/30/25 11:47 Pulse Ox 96 04/30/25 11:47 O2 Del Method Nasal Cannula 04/30/25 11:47 O2 Flow Rate 2 04/30/25 11:36 04/29/25 04/30/25 04/30/25 22:59 06:59 14:59 Intake Total 50 / 1350 240 / 1350 170 / 170 Output Total 625 / 1025 400 / 1025 1200 / 1200 Balance -575 / 325 -160 / 325 -1030 / -1030 Weight last 48 hrs Weight 180 lb 8.937 oz Weight 172 lb 6.424 oz Physical Exam 2 Const: COMMON NORMALS: no acute distress and patient oriented x3 GENERAL APPEARANCE: cooperative and comfortable ORIENTATION/CONSCIOUSNESS: Yes awake, Yes oriented to person, Yes oriented to place and Yes oriented to time Chest: COMMONS NORMALS: normal inspection of the chest and normal palpation of entire chest wall CHEST: Yes Symmetrical chest wall rise Resp: COMMON NORMALS: normal respiratory effort, No retractions, No use of accessory muscles and clear to auscultation bilaterally EFFORT & INSPECTION: Yes symmetric chest movement AUSCULTATION: clear to auscultation bilaterally Cardio: COMMON NORMALS: regular rate, regular rhythm, S1 normal heart sound present, S2 normal heart sound present, No gallops present (Cardio), No clicks present (Cardio), No murmurs present (Cardio) and No rub (Cardio) RATE: r egular rate RHYTHM: regular rhythm HEART SOUNDS: S1 normal heart sound present and S2 normal heart sound present PERIPHERAL PULSES: radial pulses present Extremity: COMMON NORMALS: no pedal edema Neuro: COMMON NORMALS: patient oriented x3 and moves all extremities S ENSORIUM/ORIENTATION: Yes oriented to person, Yes oriented to place and Yes oriented to time Data 04/30/25 08:02 04/30/25 08:02 Micro: Microbiology 04/27/25 11:30 Sputum Culture - Final Sputum - Expectorated Sputum A&P Assessment and plan 1. Acute on chronic heart failure with reduced ejection fraction (HFrEF, <= 40%) and combined systolic and diastolic dysfunction: 2. Dyspnea on exertion: 3. ICD (implantable cardioverter-defibrillator) in place: 4. PAF (paroxysmal atrial fibrillation): 5. CAD (coronary artery disease): 6. Chronic obstructive pulmonary disease, unspecified COPD type: 7. Acute on chronic hypoxic respiratory failure: Plan: Due to recurrence of VT shocked by his ICD, he requires ischemic workup. Planning for Lexiscan stress test on Saturday. N.p.o. after midnight tonight. He is now euvolemic, will switch to oral daily Lasix 40 mg. Continue midodrine 15 mg 3 times daily, digoxin 125 mcg daily, statin, metoprolol 12.5 mg twice daily, Eliquis 5 mg twice daily. PDMP PDMP Reviewed: Not Reviewed Attestations 2 Medical Necessity Statement*: Ischemic workup for VT Coding Level of Care Code Acute Code for Chg Fwd Diagnoses Acute on chronic heart failure with reduced ejection fraction (HFrEF, <= 40%) and combined systolic and diastolic dysfunction I50.43 Dyspnea on exertion R06.09 ICD (implantable cardioverter-defibrillator) in place Z95.810 PAF (paroxysmal atrial fibrillation) I48.0 CAD (coronary artery disease) I25.10 Chronic obstructive pulmonary disease, unspecified COPD type J44.9 COPD type: unspecified COPD Acute on chronic hypoxic respiratory failure J96.21
[2025-04-30] MEDS: pantoprazole 40 mg SDV IVP (17:06)
[2025-05-01] VITALS (13 sets, daily range): BP systolic 91–109; BP diastolic 60–82; PULSE 70–88; RESP 16–29; TEMP 36.6–36.8; O2SAT 89–99; BMI 25.2
[2025-05-01] MEDS: piperacillin-tazobactam 3.375 GM in sodium chloride 0.9% (plus) 50 ML IV ×3 (03:07→17:38)
[2025-05-01 03:14] LABS: Hematocrit 33.5 % (37-53); Hemoglobin 10.60 g/dL (11.27-16.99); Mean Corpuscular HGB Conc 31.6 g/dL (30-55); Mean Corpuscular Hemoglobin 29.8 pg (27-33); Mean Corpuscular Volume 94.1 fl (82-101); Nucleated Red Blood Cells % 0 %; Platelet Count 131 10^3/cmm (157-399); Red Blood Count 3.56 10^6/uL (3.85-5.65); White Blood Count 5.45 10^3/uL (3.29-11.43)
[2025-05-01 03:26] LABS: Alanine Aminotransferase 62 U/L (0-41); Albumin Level 3.3 g/dL (3.5-5.2); Alkaline Phosphatase 163 U/L (40-130); Anion Gap 12.6 (5-19); Aspartate Amino Transferase 22 U/L (0-40); Blood Urea Nitrogen 24 mg/dL (8-23); Calcium 9.2 mg/dL (8.5-10.5); Carbon Dioxide 34 mmol/L (22-29); Chloride 97 mmol/L (98-107); Globulin 1.7 g/dL (1.3-4.6); Glucose 258 mg/dL (65-115); Osmolality Calculated 301 mOsm/kg (285-295); Potassium 4.6 mmol/L (3.5-5.1); Sodium 139 mmol/L (136-145); Total Protein 5.0 g/dL (6.6-8.7)
--- NOTE | 2025-05-01 09:09 | PM.PN ---
Subjective Subjective: Patient has improvement of the shortness of breath. He is coughing up yellowish sputum. No hemoptysis. No other specific complaints. Medications: Medication Review Details: Current Medications Acetaminophen (Acetaminophen 325 Mg Tablet) 650 mg PO Q6H PRN PRN Reason: Mild/Mod Pain Or Temp >/= 101 Al Hydrox/Mg Hydrox/Simethicone (Nakq-Wie-Nwafqvlqq-Liss 30 Ml Udc) 15 ml PO Q6H PRN PRN Reason: INDIGESTION Alprazolam (Alprazolam 0.5 Mg Tablet) 0.5 mg PO BEDTIME PRN PRN Reason: anxiety Aspirin (Aspirin 81 Mg Ec Tablet) 81 mg PO DAILY [facility] Last Admin: 05/01/25 05:12 Dose: 81 mg Atorvastatin Calcium (Atorvastatin 40 Mg Tablet) 40 mg PO DAILY [facility] Last Admin: 05/01/25 05:12 Dose: 40 mg Budesonide (Budesonide 0.5 Mg/2 Ml Neb) 0.5 mg INHALATION BID.RESPIRATORY [facility] Last Admin: 05/01/25 07:55 Dose: 0.5 mg Calcium Carbonate (Calcium Carbonate 500 Mg Chew Tablet) 1,000 mg PO Q4H PRN PRN Reason: DYSPEPSI Citalopram Hydrobromide (Citalopram 20 Mg Tablet) 20 mg PO DAILY [facility] Last Admin: 05/01/25 05:12 Dose: 20 mg Digoxin (Digoxin 125 Mcg Tablet) 125 mcg PO DAILY@1200 [facility] Last Admin: 04/30/25 12:11 Dose: 125 mcg Doxycycline Monohydrate (Doxycycline 100 Mg Tablet) 100 mg PO BID [facility]; Protocol Last Admin: 05/01/25 05:12 Dose: 100 mg Enoxaparin Sodium (Enoxaparin 80 Mg/0.8 Ml Syringe) 80 mg SUBCUT Q12H [facility] Last Admin: 05/01/25 05:12 Dose: 80 mg Furosemide (Furosemide 40 Mg Tablet) 40 mg PO DAILY [facility] Last Admin: 05/01/25 05:12 Dose: 40 mg Piperacillin Sod/Tazobactam (Sod 3.375 gm/ Sodium Chloride) 50 mls @ 12.5 mls/hr IV Q8H [facility] Last Admin: 05/01/25 08:57 Dose: 12.5 mls/hr Ipratropium [place] (Ipratropium 0.5 Mg/2.5 Ml Neb) 0.5 mg INHALATION Q4H.RESPIRATORY [facility] Last Admin: 05/01/25 07:55 Dose: 0.5 mg Levalbuterol HCl (Levalbuterol 1.25 Mg/3 Ml Neb) 1.25 mg INHALATION Q4H.RESPIRATORY [facility] Last Admin: 05/01/25 07:55 Dose: 1.25 mg Metolazone (Metolazone 5 Mg Tablet) 2.5 mg PO DAILY [facility] On Hold: 04/28/25 08:43 Metoprolol Tartrate (Metoprolol Tartrate 25 Mg Tablet) 12.5 mg PO BID@0900,2100 [facility] Last Admin: 05/01/25 08:57 Dose: 12.5 mg Midodrine (Midodrine 5 Mg Tablet) 15 mg PO TID [facility] Last Admin: 05/01/25 05:12 Dose: 15 mg Ondansetron HCl (Ondansetron 2 Mg/Ml Sdv 2 Ml) 4 mg IVP Q8H PRN PRN Reason: vomiting, or N/V if npo Pantoprazole Sodium (Pantoprazole 40 Mg Sdv) 40 mg IVP Q24H [facility] Last Admin: 04/30/25 17:06 Dose: 40 mg Potassium Chloride (Potassium Chloride Er 20 Meq Tablet) 20 meq PO BID [facility] Last Admin: 05/01/25 05:12 Dose: 20 meq Senna (Sennosides 8.6 Mg Tablet) 17.2 mg PO BEDTIME [facility] Last Admin: 04/30/25 20:20 Dose: Not Given Vitals/I&O/Wt Last Vital Signs Temp 97.8 F 05/01/25 07:31 Pulse 84 05/01/25 07:57 Resp 22 H 05/01/25 07:57 BP 102/76 05/01/25 07:31 Pulse Ox 98 05/01/25 07:57 O2 Del Method Nasal Cannula 05/01/25 07:57 O2 Flow Rate 2.5 05/01/25 07:57 04/30/25 05/01/25 05/01/25 22:59 06:59 14:59 Intake Total 290 / 510 50 / 50 Output Total 350 / 1550 250 / 250 Balance -60 / -1040 -200 / -200 Weight last 48 hrs Weight 180 lb 8.937 oz Weight 180 lb 8.937 oz Physical Exam Narrative: GENERAL: The patient is alert and oriented times three. Not in any acute distress. HEENT: No significant pallor, icterus or lymphadenopathy.Oral cavity: There are no mucous membrane lesions. NECK: Trachea appears to be central. No masses noted. No JVD or thyromegaly appreciated. RESPIRATORY: Chest is symmetrical. No intercostals muscle retraction or any accessory muscle activation. There is no chest wall tenderness. Breath sounds are heard bilaterally. Bilateral expiratory wheezing. No evidence of any consolidation. BREASTS: Deferred. HEART: The heart sounds are normal. No S3 or S4. No significant murmurs. No pericardial rub ABDOMEN: No vessel pulsations or distention. No tenderness. No organomegaly appreciated. Bowel sounds are normally heard. : Deferred. RECTAL: Deferred. LYMPHATIC: No lymphadenopathy noted in the neck. EXTREMITIES: No edema or cyanosis. No clubbing. MUSCULOSKELETAL: No acute joint deformities or swelling SKIN: There are no significant rashes or ecchymosis NEUROPSYCHIATRIC: The patient is alert and oriented x3. Appears to be in a good mood. No tremors or rigidity noted. Data 05/01/25 02:25 05/01/25 02:25 Other Labs: Laboratory Last Values WBC 5.45 10^3/uL (3.29-11.43) 05/01/25 02:25 RBC 3.56 10^6/uL (3.85-5.65) L 05/01/25 02:25 Hgb 10.60 g/dL (11.27-16.99) L 05/01/25 02:25 Hct 33.5 % (37-53) L 05/01/25 02:25 MCV 94.1 fl (82-101) 05/01/25 02:25 MCH 29.8 pg (27-33) 05/01/25 02:25 MCHC 31.6 g/dL (30-55) 05/01/25 02:25 RDW 18.9 % (12.1-15.1) H 05/01/25 02:25 Plt Count 131 10^3/cmm (157-399) L 05/01/25 02:25 MPV 11.8 fL (7.4-10.4) H 05/01/25 02:25 Neut % (Auto) 77.9 % 05/01/25 02:25 Lymph % (Auto) 12.3 % 05/01/25 02:25 [place] % (Auto) 8.8 % 05/01/25 02:25 Eos % (Auto) 0.6 % 05/01/25 02:25 Baso % (Auto) 0.0 % 05/01/25 02:25 Neut # (Auto) 4.25 10^3/uL (1.8-7.7) 05/01/25 02:25 Lymph # (Auto) 0.7 10^3/uL (0.8-4.8) L 05/01/25 02:25 [place] # (Auto) 0.5 10^3/uL (0.2-0.9) 05/01/25 02:25 Eos # (Auto) 0.0 10^3/uL (0.0-0.8) 05/01/25 02:25 Baso # (Auto) 0.0 10^3/uL (0.0-0.1) 05/01/25 02:25 Nucleated RBC % (auto) 0 % 05/01/25 02:25 Total Counted 100 (0-100) 04/26/25 14:28 Atypical Lymphs % 0.0 % (0-5) 04/26/25 14:28 Absolute Neutrophils 7.2 10^3/cmm (1.4-6.5) H 04/26/25 14:28 Segmented Neutrophils 88 % 04/26/25 14:28 Band Neutrophils 1.0 % 04/26/25 14:28 Absolute Lymphocytes 0.6 10^3/cmm (1.2-3.4) L 04/26/25 14:28 Lymphocytes (Manual) 8 % 04/26/25 14:28 Monocytes (Manual) 3.0 % 04/26/25 14:28 Absolute Monocytes 0.2 10^3/cmm (0.1-0.6) 04/26/25 14:28 Eosinophils (Manual) 0 % 04/26/25 14:28 Absolute Eosinophils 0.0 10^3/cmm (0.0-0.7) 04/26/25 14:28 Basophils (Manual) 0.0 % 04/26/25 14:28 Absolute Basophils 0.0 10^3/cmm (0.0-0.2) 04/26/25 14:28 Nucleated RBCs # 0.0 /100WBC 05/01/25 02:25 Platelet Estimate Decreased (Normal) 04/26/25 14:28 Anisocytosis 1+ H 04/26/25 14:28 Peripher Smr Path Cons Sent for review 04/26/25 14:28 Specimen Type Arterial 04/28/25 12:47 Sample Site Brachial, right 04/28/25 12:47 ABG pH 7.41 (7.35-7.45) 04/28/25 12:47 ABG pCO2 45.3 mmHg (35-45) H 04/28/25 12:47 ABG pO2 82.7 mmHg (80.0-100.0) 04/28/25 12:47 ABG PO2/FiO2 Ratio 258 04/28/25 12:47 ABG HCO3 28.8 mmol/L (22-26) H 04/28/25 12:47 ABG Base Excess 3.6 mmol/L (-2.0-2.0) H 04/28/25 12:47 [place] Test Pos 04/28/25 12:47 Hematocrit 34.4 % (42-52) L 04/28/25 12:47 O2 Delivery Device Nc 04/28/25 12:47 O2 Liters/Min 3.0 % 04/28/25 12:47 FiO2 32.0 % 04/28/25 12:47 Civil Litigation Attorney ID [place] 04/28/25 12:47 Sodium 139 mmol/L (136-145) 05/01/25 02:25 Potassium 4.6 mmol/L (3.5-5.1) 05/01/25 02:25 Chloride 97 mmol/L (98-107) L 05/01/25 02:25 Carbon Dioxide 34 mmol/L (22-29) H 05/01/25 02:25 Anion Gap 12.6 (5-19) 05/01/25 02:25 BUN 24 mg/dL (8-23) H 05/01/25 02:25 Creatinine 0.7 mg/dL (0.7-1.2) 05/01/25 02:25 GFR Calculation Not Reportable 05/01/25 02:25 Glucose 258 mg/dL (65-115) H 05/01/25 02:25 Calculated Osmolality 301 mOsm/kg (285-295) H 05/01/25 02:25 Lactate 3.0 mmol/L (0.5-2.2) H 04/27/25 14:13 Calcium 9.2 mg/dL (8.5-10.5) 05/01/25 02:25 Phosphorus 2.4 mg/dL (2.5-4.5) L 04/28/25 00:00 Magnesium 2.1 mg/dL (1.7-2.3) 04/29/25 04:51 Total Bilirubin 0.9 mg/dL (0.15-1.2) 05/01/25 02:25 AST 22 U/L (0-40) 05/01/25 02:25 ALT 62 U/L (0-41) H 05/01/25 02:25 Alkaline Phosphatase 163 U/L (40-130) H 05/01/25 02:25 Troponin T Baseline 85 ng/L (0-15) H 04/23/25 13:05 Troponin T 120 Minute 91.07 ng/L (0-15) H 04/23/25 15:12 Delta Troponin T 6.07 ABS# (0-10) 04/23/25 15:12 Troponin T Hi Sens 6Hr 94.41 ng/L (0-15) H 04/23/25 19:14 Troponin T Hi Sens 6Hr Delta 9.41 ng/L (0-12) 04/23/25 19:14 NT-Pro-B Natriuret Pep 9964 pg/mL (0-125) H 04/23/25 13:05 Total Protein 5.0 g/dL (6.6-8.7) L 05/01/25 02:25 Albumin 3.3 g/dL (3.5-5.2) L 05/01/25 02:25 Globulin 1.7 g/dL (1.3-4.6) 05/01/25 02:25 TSH 3.44 uIU/mL (0.27-4.20) 04/23/25 17:35 Digoxin 0.5 ng/mL (0.6-1.2) L 04/29/25 04:51 Adenovirus (PCR) Not detected (NOT DETECT) 04/26/25 14:50 Lyme Ab (Western Blot) <0.90 index 04/29/25 04:51 C. pneumoniae DNA (PCR) Not detected (NOT DETECT) 04/26/25 14:50 Coronavirus 229E (PCR) Not detected (NOT DETECT) 04/26/25 14:50 Hepatitis A IgM Ab Non-reactive (Nonreactive) 04/26/25 14: Hep Bs Antigen Non-reactive (Nonreactive) 04/26/25 14: Hep Bs Antibody > 1000.0 (11.5-1000) H 04/26/25 14: Hep B Core Total Ab Reactive (Nonreactive) H 04/26/25 14: Hepatitis C Antibody Reactive (Nonreactive) H 04/26/25 14:28 HCV RNA (PCR) IUs/ml <1.18 not detected Log IU/mL (NOT DETECTED) 04/26/25 16:10 HCV RNA (PCR) IU log10 <15 not detected IU/mL (NOT DETECTED) 04/26/25 16:10 Human Metapneumovir PCR Not detected (NOT DETECT) 04/26/25 14:50 Influenza A (H1) PCR Not detected (NOT DETECT) 04/26/25 14:50 Influ A (H1/09) PCR Not detected (NOT DETECT) 04/26/25 14:50 Influenza A (H3) PCR Not detected (NOT DETECT) 04/26/25 14:50 Influenza Type A (PCR) Not detected (NOT DETECT) 04/26/25 14:50 Influenza Type B (PCR) Not detected (NOT DETECT) 04/26/25 14:50 M. pneumoniae (PCR) Not detected (NOT DETECT) 04/26/25 14:50 Parainfluenza 1 (PCR) Not detected (NOT DETECT) 04/26/25 14:50 Parainfluenza 2 (PCR) Not detected (NOT DETECT) 04/26/25 14:50 Parainfluenza 3 (PCR) Not detected (NOT DETECT) 04/26/25 14:50 Parainfluenza 4 (PCR) Not detected (NOT DETECT) 04/26/25 14:50 RSV Type A (PCR) Not detected (NOT DETECT) 04/26/25 14:50 RSV Type B (PCR) Not detected (NOT DETECT) 04/26/25 14:50 Entero/Rhino (PCR) Not detected (NOT DETECT) 04/26/25 14:50 SARS-CoV-2 (PCR) Not detected (NOT DETECT) 04/26/25 14:50 A&P Assessment and plan 1. Acute on chronic heart failure with reduced ejection fraction (HFrEF, <= 40%) and combined systolic and diastolic dysfunction: The heart failure seems to be compensated. May continue on the current management. 2. Atherosclerosis of [place] coronary artery of [place] heart without angina pectoris: Patient is scheduled for Myocardial perfusion imaging on Saturday to evaluate the coronary status and decide on further management. Continue on the current management for the time being. 3. Ventricular arrhythmia: Status post ICD discharge. Currently has no recurrence of ventricular arrhythmia. May continue on the current management. 4. ICD (implantable cardioverter-defibrillator) in place: ICD function appears to be appropriate. Continue on the current monitoring schedule. 5. PAF (paroxysmal atrial fibrillation): Patient is currently on subcu Lovenox. This may be continued. 6. Chronic obstructive pulmonary disease, unspecified COPD type: Continue bronchodilator treatment. 7. Acute on chronic hypoxic respiratory failure: Continue on the current management. Plan: Patient will be closely monitored on telemetry. Based on the Myocardial perfusion imaging results, further recommendations will be made PDMP PDMP Reviewed: Not Reviewed Attestations Medical Necessity Statement*: Deferred to the primary Coding Level of Care Code 25054 Diagnoses Acute on chronic heart failure with reduced ejection fraction (HFrEF, <= 40%) and combined systolic and diastolic dysfunction I50.43 Atherosclerosis of [place] coronary artery of [place] heart without angina pectoris I25.10 Coronary Disease-Associated Artery/Lesion type: [place] artery Ventricular arrhythmia I49.9 ICD (implantable cardioverter-defibrillator) in place Z95.810 PAF (paroxysmal atrial fibrillation) I48.0 Chronic obstructive pulmonary disease, unspecified COPD type J44.9 COPD type: unspecified COPD Acute on chronic hypoxic respiratory failure J96.21
--- NOTE | 2025-05-01 14:07 | P.PN_ITS ---
Subjective 2 Subjective: No new complaints today. Denies any chest pain. Oxygen requirement stable. Tolerating oral diuresis Medications: Reviewed: Yes Medication Review Details: Current Medications Acetaminophen (Acetaminophen 325 Mg Tablet) 650 mg PO Q6H PRN PRN Reason: Mild/Mod Pain Or Temp >/= 101 Al Hydrox/Mg Hydrox/Simethicone (Xqoi-Npv-Atzivpziw-Liss 30 Ml Udc) 15 ml PO Q6H PRN PRN Reason: INDIGESTION Alprazolam (Alprazolam 0.5 Mg Tablet) 0.5 mg PO BEDTIME PRN PRN Reason: anxiety Aspirin (Aspirin 81 Mg Ec Tablet) 81 mg PO DAILY [facility] Last Admin: 05/01/25 05:12 Dose: 81 mg Atorvastatin Calcium (Atorvastatin 40 Mg Tablet) 40 mg PO DAILY [facility] Last Admin: 05/01/25 05:12 Dose: 40 mg Budesonide (Budesonide 0.5 Mg/2 Ml Neb) 0.5 mg INHALATION BID.RESPIRATORY [facility] Last Admin: 05/01/25 07:55 Dose: 0.5 mg Calcium Carbonate (Calcium Carbonate 500 Mg Chew Tablet) 1,000 mg PO Q4H PRN PRN Reason: DYSPEPSI Citalopram Hydrobromide (Citalopram 20 Mg Tablet) 20 mg PO DAILY [facility] Last Admin: 05/01/25 05:12 Dose: 20 mg Digoxin (Digoxin 125 Mcg Tablet) 125 mcg PO DAILY@1200 [facility] Last Admin: 04/30/25 12:11 Dose: 125 mcg Doxycycline Monohydrate (Doxycycline 100 Mg Tablet) 100 mg PO BID [facility]; Protocol Last Admin: 05/01/25 05:12 Dose: 100 mg Enoxaparin Sodium (Enoxaparin 80 Mg/0.8 Ml Syringe) 80 mg SUBCUT Q12H [facility] Last Admin: 05/01/25 05:12 Dose: 80 mg Furosemide (Furosemide 40 Mg Tablet) 40 mg PO DAILY [facility] Last Admin: 05/01/25 05:12 Dose: 40 mg Piperacillin Sod/Tazobactam (Sod 3.375 gm/ Sodium Chloride) 50 mls @ 12.5 mls/hr IV Q8H [facility] Last Admin: 05/01/25 08:57 Dose: 12.5 mls/hr Ipratropium [place] (Ipratropium 0.5 Mg/2.5 Ml Neb) 0.5 mg INHALATION Q4H.RESPIRATORY [facility] Last Admin: 05/01/25 07:55 Dose: 0.5 mg Levalbuterol HCl (Levalbuterol 1.25 Mg/3 Ml Neb) 1.25 mg INHALATION Q4H.RESPIRATORY [facility] Last Admin: 05/01/25 07:55 Dose: 1.25 mg Metolazone (Metolazone 5 Mg Tablet) 2.5 mg PO DAILY [facility] On Hold: 04/28/25 08:43 Metoprolol Tartrate (Metoprolol Tartrate 25 Mg Tablet) 12.5 mg PO BID@0900,2100 [facility] Last Admin: 05/01/25 08:57 Dose: 12.5 mg Midodrine (Midodrine 5 Mg Tablet) 15 mg PO TID [facility] Last Admin: 05/01/25 05:12 Dose: 15 mg Ondansetron HCl (Ondansetron 2 Mg/Ml Sdv 2 Ml) 4 mg IVP Q8H PRN PRN Reason: vomiting, or N/V if npo Pantoprazole Sodium (Pantoprazole 40 Mg Sdv) 40 mg IVP Q24H [facility] Last Admin: 04/30/25 17:06 Dose: 40 mg Potassium Chloride (Potassium Chloride Er 20 Meq Tablet) 20 meq PO BID [facility] Last Admin: 05/01/25 05:12 Dose: 20 meq Senna (Sennosides 8.6 Mg Tablet) 17.2 mg PO BEDTIME [facility] Last Admin: 04/30/25 20:20 Dose: Not Given Vitals/I&O/Wt Last Vital Signs Temp 97.8 F 05/01/25 07:31 Pulse 82 05/01/25 12:00 Resp 25 H 05/01/25 12:00 BP 91/60 05/01/25 12:00 Pulse Ox 89 L 05/01/25 12:00 O2 Del Method Nasal Cannula 05/01/25 11:39 O2 Flow Rate 2 05/01/25 11:39 04/30/25 05/01/25 05/01/25 22:59 06:59 14:59 Intake Total 290 / 510 290 / 290 Output Total 350 / 1550 1100 / 1100 Balance -60 / -1040 -810 / -810 Weight last 48 hrs Weight 81.9 kg Weight 81.9 kg Physical Exam 2 Narrative: General: No acute distress, AO x3 HEENT: PERRLA, pupils bilaterally equal and reactive, pallors not present Chest: Normal vesicular breath sounds, no added sounds, equal good air entry bilaterally CVS: S1-S2 regular, no murmurs, no tachycardia, no gallops, no rubs Abdomen: Soft, nontender, no organomegaly, bowel sounds present Neuro: No focal deficits, no facial deformity, AO x3, power 5/5 in all limbs Data 05/01/25 02:25 05/01/25 02:25 A&P Assessment and plan 1. Acute on chronic hypoxic respiratory failure: Patient found to have high proBNP around 10,000, delta Trope were not significantly raised, EKG reviewed Recent echo showed ejection fraction of 40 to 45%, Diuresing well (net -1.6 L over the last 24 hours) cardio consulted and recommended: Hypotension limiting guideline directed medical therapy for CHF Continue Lasix 40 mg IV twice daily Continue midodrine 10 mg 3 times daily Start ivabradine 5 mg twice daily?if not on our formulary this could be started as an outpatient recommended stress test prior to discharge due to his history of CAD/CABG and frequent hospitalizations for CHF exacerbations. Stress test would be in the form of a Lexiscan nuclear stress test. Lower extremity compression socks Once euvolemic, recommend changing Lasix to Jardiance and spironolactone combination Start digoxin 0.25mg IV q 6hours x 2 then 0.125mg po daily Patient compliant to his medication, and may need to adjust his diuretics as inpatient and later to follow as outpatient Daily weight base analysis 2. Acute on chronic heart failure with reduced ejection fraction (HFrEF, <= 40%) and combined systolic and diastolic dysfunction: Cardiology on board Continue diuresis along with the support of Lasix to support the blood pressure Midodrine 10 mg 3 times daily Aspirin and statin to continue Telemetry monitoring Intake and output monitoring Daily weight analysis 3. Afib: Low A-fib burden of 1.4% according to pacemaker interrogation 04/04/2025 Continue Eliquis metoprolol on hold currently due to hypotension Continue on aspirin Start digoxin 0.25mg IV q 6hours x 2 then 0.125mg po daily 4. ICD (implantable cardioverter-defibrillator) in place: Functioning well 5. Hypotension: Continue midodrine 10 3 times daily 1 dose of albumin to give Monitor blood pressure 6. Chronic obstructive pulmonary disease, unspecified COPD type: Patient not having any features of COPD exacerbation at the moment Continue treatment with ipratropium, budesonide and lev albuterol prednisone 40mg oral daily for 5 days Oxygen therapy as per protocol 7. GERD (gastroesophageal reflux disease): PPI daily 8. Hyperlipidemia: Continue home dose statins 9. Transaminitis: Could be related to congestive hepatomegaly currently improving Ultrasound liver showed coarse hepatic echotexture with possible hepatic steatosis Follow liver enzymes daily 10. Encounter for screening involving social determinants of health (SDoH): Patient had multiple recurrent admissions, case management involved. Patient has home health aide as his daughter. Case management involved for possible transfer to SNF/detention for further improvement OT PT evaluation 11. Thrombocytopenia: Plan: VTE: Intermittent compression devices. Patient platelets are low Diet: Cardiac 04/26/2025. 74-year-old male with known history of COPD, typically on 2 L/min supplemental O2, history of CHF, last echocardiogram from April 05, 2025 with ejection fraction of 40 to 45% with mild global hypokinesia. He is currently admitted with acute on chronic worsening hypoxemic respiratory failure. Likely related to acute on chronic systolic CHF exacerbation. Patient is currently on diuresis with Lasix 40 mg IV every 12 hours which we will continue. His IV diuresis was interrupted overnight due to soft blood pressure. He is currently on midodrine 10 mg 3 times daily. Goal-directed medical therapy for heart failure has been unable to be optimized due to soft BP. Discussed with cardiology starting low-dose dopamine to maintain blood pressure however currently the concern is that it may worsen his tachycardia therefore holding off. Midodrine has been increased to 15 mg 3 times daily and Lasix increased to 20 mg IV every 8 hours per cardiology recommendations. Continue IV diuresis. Urine output 980 cc last 24 hours. Net -1200 cc. Bladder scan today to ensure no urinary retention contributing to lower output. Crackles on exam today diffusely. It will be critical to maintain his IV diuresis. Oxygen requirement up at 3 L/min today. Check chest x-ray. Platelet count dropping to 51,000 today, currently uncertain as to the reason for this drop. Reviewing his prior admission, his platelet count was at 197 on April 08, 2025, lowest platelet count in the past has been at 149. I do not see any mention of thrombocytopenia on his past medical history. LFTs noted to be mildly elevated. Ultrasound showing hepatic steatosis. No known history of cirrhosis. Will check peripheral smear to assess for platelet clumping and focal thrombocytopenia. Check CBC with manual differential to confirm thrombocytopenia. Hold Eliquis as patient had mild hemoptysis this morning along with the platelet count of 50,000. Unlikely HIT as patient has not been exposed to any heparin products during this admission. Check respiratory viral panel as from the cytopenia and deranged LFTs may be related to acute viral infection. He has been afebrile this current admission. Changed to inpatient admission 04/27/2025 Continues to have bilateral crackles. Increased amount of expectoration today, however bleeding does not appear to have increased with regards to hemoptysis. Holding Eliquis today again. Net -1.4 L. Negative respiratory viral panel. No fever or leukocytosis. Will obtain CT of the chest today to assess for edema, worsening effusion versus possibly developing pneumonia given increased crackles and increased expectoration today. Low probability of PE given patient is chronically on Eliquis. Continue diuresis with Lasix 20 mg IV 3 times daily. Blood pressure lowest 89/61, MAP over 65 on midodrine 15 mg 3 times daily. Will discuss with cardiology if may benefit from Lasix drip. Platelet count improving at 69,000 today. Unclear cause. Hepatitis serology negative for hep A IgM. Hep B core total antibody positive however surface antigen negative consistent with past infection. Hepatitis C Ab positive, pending hep C PCR. No evidence of cirrhosis on ultrasound imaging. Pending peripheral smear. 04/28/2025 Continues to have bilateral crackles, however somewhat improved compared to yesterday. More predominant in the left lower lobe today. CT of the chest was performed yesterday which showed pneumonia. IV piperacillin/tazobactam and doxycycline was added at the time. Speech therapy evaluation requested due to concern for aspiration. Platelet count at 70,000, stable. CT chest additionally showed a moderate left pleural effusion. Ultrasound of the chest ordered today to estimate extent of fluid if amenable to thoracentesis. Hep C PCR not detected. Consistent with past infection. Increase diuresis today to 40 mg IV 3 times daily Lasix. Pending sputum culture and Gram stain. MRSA nasal screen negative. 04/29/2025 : clinically improving today. breathing is less labored. net negative 1.9L. continue iv lasix 40 mg tid. continue zosyn and doxycycline. USG chest with small effusions, not amenable to thoracentessis. Encourage OOB 04/30/2025 Clinically improving. Discontinue IV Lasix. Transition to 40 mg p.o. twice daily Lasix. Continue Zosyn and doxycycline. Participated with physical therapy today. Continue to encourage ambulation. Plan for stress test on Saturday per cardiology. Thrombocytopenia resolving, currently at 155. Hemoptysis resolved. Will resume anticoagulation. Using full dose Lovenox instead of Eliquis for now in case stress test is abnormal and needs an angiogram in follow-up. May 01, 2025 Clinically stable. Tolerating oral diuresis. Net -800 cc last 24 hours. Clinically appearing to be euvolemic now. Improving from a pneumonia perspective. Expectorating less. No further hemoptysis. Platelet count recovered at 131. Continue piperacillin/tazobactam, day 5 today, aim to complete a 7-day course. Continue doxycycline for atypical coverage, total 5 days. Patient is currently planned for a stress test on Saturday. Unfortunately the test is unable to be performed over the weekend. PDMP PDMP Reviewed: Not Reviewed Attestations 2 Medical Necessity Statement*: Awaiting stress test Coding Level of Care Code Acute Code for Chg Fwd Diagnoses Acute on chronic hypoxic respiratory failure J96.21 Acute on chronic heart failure with reduced ejection fraction (HFrEF, <= 40%) and combined systolic and diastolic dysfunction I50.43 Afib I48.91 ICD (implantable cardioverter-defibrillator) in place Z95.810 Hypotension I95.9 Chronic obstructive pulmonary disease, unspecified COPD type J44.9 COPD type: unspecified COPD GERD (gastroesophageal reflux disease) K21.9 Hyperlipidemia E78.5 Transaminitis R74.01 Encounter for screening involving social determinants of health (SDoH) Z13.9 Thrombocytopenia D69.6
[2025-05-01] MEDS: pantoprazole 40 mg SDV IVP (17:37)
[2025-05-02] VITALS (16 sets, daily range): BP systolic 90–96; BP diastolic 64–72; PULSE 76–96; RESP 16–30; TEMP 36.4–36.8; O2SAT 92–99; BMI 24.5
[2025-05-02] MEDS: piperacillin-tazobactam 3.375 GM in sodium chloride 0.9% (plus) 50 ML IV ×3 (01:42→17:36)
[2025-05-02 04:13] LABS: Hematocrit 32.8 % (37-53); Hemoglobin 10.20 g/dL (11.27-16.99); Mean Corpuscular HGB Conc 31.1 g/dL (30-55); Mean Corpuscular Hemoglobin 29.3 pg (27-33); Mean Corpuscular Volume 94.3 fl (82-101); Nucleated Red Blood Cells % 0 %; Platelet Count 124 10^3/cmm (157-399); Red Blood Count 3.48 10^6/uL (3.85-5.65); White Blood Count 5.28 10^3/uL (3.29-11.43)
[2025-05-02 04:45] LABS: Alanine Aminotransferase 51 U/L (0-41); Albumin Level 3.1 g/dL (3.5-5.2); Alkaline Phosphatase 143 U/L (40-130); Anion Gap 10.3 (5-19); Aspartate Amino Transferase 22 U/L (0-40); Blood Urea Nitrogen 20 mg/dL (8-23); Calcium 8.9 mg/dL (8.5-10.5); Carbon Dioxide 32 mmol/L (22-29); Chloride 99 mmol/L (98-107); Globulin 1.6 g/dL (1.3-4.6); Glucose 107 mg/dL (65-115); Osmolality Calculated 287 mOsm/kg (285-295); Potassium 4.3 mmol/L (3.5-5.1); Sodium 137 mmol/L (136-145); Total Protein 4.7 g/dL (6.6-8.7)
--- NOTE | 2025-05-02 09:48 | P.PN_ITS ---
Subjective 2 Subjective: Patient denies any chest pain or chest tightness. No significant arrhythmias on the monitor. Still has a cough but seems to be improving . Has the baseline shortness of breath with activities. Medications: Medication Review Details: Current Medications Acetaminophen (Acetaminophen 325 Mg Tablet) 650 mg PO Q6H PRN PRN Reason: Mild/Mod Pain Or Temp >/= 101 Al Hydrox/Mg Hydrox/Simethicone (Kope-Wzd-Uxxvkoidc-Liss 30 Ml Udc) 15 ml PO Q6H PRN PRN Reason: INDIGESTION Alprazolam (Alprazolam 0.5 Mg Tablet) 0.5 mg PO BEDTIME PRN PRN Reason: anxiety Aspirin (Aspirin 81 Mg Ec Tablet) 81 mg PO DAILY [facility] Last Admin: 05/02/25 05:06 Dose: 81 mg Atorvastatin Calcium (Atorvastatin 40 Mg Tablet) 40 mg PO DAILY [facility] Last Admin: 05/02/25 05:06 Dose: 40 mg Budesonide (Budesonide 0.5 Mg/2 Ml Neb) 0.5 mg INHALATION BID.RESPIRATORY [facility] Last Admin: 05/02/25 08:30 Dose: 0.5 mg Calcium Carbonate (Calcium Carbonate 500 Mg Chew Tablet) 1,000 mg PO Q4H PRN PRN Reason: DYSPEPSI Citalopram Hydrobromide (Citalopram 20 Mg Tablet) 20 mg PO DAILY [facility] Last Admin: 05/02/25 05:06 Dose: 20 mg Digoxin (Digoxin 125 Mcg Tablet) 125 mcg PO DAILY@1200 [facility] Last Admin: 05/01/25 11:32 Dose: 125 mcg Doxycycline Monohydrate (Doxycycline 100 Mg Tablet) 100 mg PO BID [facility]; Protocol Stop: 05/03/25 16:59 Last Admin: 05/02/25 05:06 Dose: 100 mg Enoxaparin Sodium (Enoxaparin 80 Mg/0.8 Ml Syringe) 80 mg SUBCUT Q12H [facility] Last Admin: 05/02/25 04:36 Dose: 80 mg Furosemide (Furosemide 40 Mg Tablet) 40 mg PO DAILY [facility] Last Admin: 05/02/25 05:06 Dose: 40 mg Piperacillin Sod/Tazobactam (Sod 3.375 gm/ Sodium Chloride) 50 mls @ 12.5 mls/hr IV Q8H [facility] Last Infusion: 05/02/25 06:11 Dose: Infused Ipratropium Lenorah (Ipratropium 0.5 Mg/2.5 Ml Neb) 0.5 mg INHALATION Q4H.RESPIRATORY [facility] Last Admin: 05/02/25 08:30 Dose: 0.5 mg Levalbuterol HCl (Levalbuterol 1.25 Mg/3 Ml Neb) 1.25 mg INHALATION Q4H.RESPIRATORY [facility] Last Admin: 05/02/25 08:30 Dose: 1.25 mg Metolazone (Metolazone 5 Mg Tablet) 2.5 mg PO DAILY [facility] On Hold: 04/28/25 08:43 Metoprolol Tartrate (Metoprolol Tartrate 25 Mg Tablet) 12.5 mg PO BID@0900,2100 [facility] Last Admin: 05/01/25 20:32 Dose: 12.5 mg Midodrine (Midodrine 5 Mg Tablet) 15 mg PO TID [facility] Last Admin: 05/02/25 05:05 Dose: 15 mg Ondansetron HCl (Ondansetron 2 Mg/Ml Sdv 2 Ml) 4 mg IVP Q8H PRN PRN Reason: vomiting, or N/V if npo Pantoprazole Sodium (Pantoprazole 40 Mg Sdv) 40 mg IVP Q24H [facility] Last Admin: 05/01/25 17:37 Dose: 40 mg Potassium Chloride (Potassium Chloride Er 20 Meq Tablet) 20 meq PO BID [facility] Last Admin: 05/02/25 05:06 Dose: 20 meq Senna (Sennosides 8.6 Mg Tablet) 17.2 mg PO BEDTIME [facility] Last Admin: 05/01/25 20:36 Dose: Not Given Vitals/I&O/Wt Last Vital Signs Temp 97.6 F 05/02/25 08:00 Pulse 91 05/02/25 08:30 Resp 20 H 05/02/25 08:30 BP 96/72 05/02/25 08:00 Pulse Ox 95 05/02/25 08:30 O2 Del Method Nasal Cannula 05/02/25 08:30 O2 Flow Rate 2 05/02/25 08:30 05/01/25 05/02/25 05/02/25 22:59 06:59 14:59 Intake Total 290 / 630 50 / 680 Output Total 150 / 1250 150 / 1400 Balance 140 / -620 -100 / -720 Weight last 48 hrs Weight 175 lb 7.807 oz Weight 180 lb 8.937 oz Physical Exam 2 Narrative: GENERAL: The patient is alert and oriented times three. Not in any acute distress. HEENT: No significant pallor, icterus or lymphadenopathy.Oral cavity: There are no mucous membrane lesions. NECK: Trachea appears to be central. No masses noted. No JVD or thyromegaly appreciated. RESPIRATORY: Chest is symmetrical. No intercostals muscle retraction or any accessory muscle activation. There is no chest wall tenderness. Breath sounds are heard bilaterally. Bilateral expiratory wheezing. No evidence of any consolidation. BREASTS: Deferred. HEART: The heart sounds are normal. No S3 or S4. No significant murmurs. No pericardial rub ABDOMEN: No vessel pulsations or distention. No tenderness. No organomegaly appreciated. Bowel sounds are normally heard. : Deferred. RECTAL: Deferred. LYMPHATIC: No lymphadenopathy noted in the neck. EXTREMITIES: No edema or cyanosis. No clubbing. MUSCULOSKELETAL: No acute joint deformities or swelling SKIN: There are no significant rashes or ecchymosis NEUROPSYCHIATRIC: The patient is alert and oriented x3. Appears to be in a good mood. No tremors or rigidity noted. Data 05/02/25 03:32 05/02/25 03:32 Other Labs: Laboratory Last Values WBC 5.28 10^3/uL (3.29-11.43) 05/02/25 03:32 RBC 3.48 10^6/uL (3.85-5.65) L 05/02/25 03:32 Hgb 10.20 g/dL (11.27-16.99) L 05/02/25 03:32 Hct 32.8 % (37-53) L 05/02/25 03:32 MCV 94.3 fl (82-101) 05/02/25 03:32 MCH 29.3 pg (27-33) 05/02/25 03:32 MCHC 31.1 g/dL (30-55) 05/02/25 03:32 RDW 18.9 % (12.1-15.1) H 05/02/25 03:32 Plt Count 124 10^3/cmm (157-399) L 05/02/25 03:32 MPV 11.7 fL (7.4-10.4) H 05/02/25 03:32 Neut % (Auto) 71.1 % 05/02/25 03:32 Lymph % (Auto) 16.3 % 05/02/25 03:32 Bennett % (Auto) 9.5 % 05/02/25 03:32 Eos % (Auto) 2.5 % 05/02/25 03:32 Baso % (Auto) 0.0 % 05/02/25 03:32 Neut # (Auto) 3.76 10^3/uL (1.8-7.7) 05/02/25 03:32 Lymph # (Auto) 0.9 10^3/uL (0.8-4.8) 05/02/25 03:32 Bennett # (Auto) 0.5 10^3/uL (0.2-0.9) 05/02/25 03:32 Eos # (Auto) 0.1 10^3/uL (0.0-0.8) 05/02/25 03:32 Baso # (Auto) 0.0 10^3/uL (0.0-0.1) 05/02/25 03:32 Nucleated RBC % (auto) 0 % 05/02/25 03:32 Total Counted 100 (0-100) 04/26/25 14:28 Atypical Lymphs % 0.0 % (0-5) 04/26/25 14:28 Absolute Neutrophils 7.2 10^3/cmm (1.4-6.5) H 04/26/25 14:28 Segmented Neutrophils 88 % 04/26/25 14:28 Band Neutrophils 1.0 % 04/26/25 14:28 Absolute Lymphocytes 0.6 10^3/cmm (1.2-3.4) L 04/26/25 14:28 Lymphocytes (Manual) 8 % 04/26/25 14:28 Monocytes (Manual) 3.0 % 04/26/25 14:28 Absolute Monocytes 0.2 10^3/cmm (0.1-0.6) 04/26/25 14:28 Eosinophils (Manual) 0 % 04/26/25 14:28 Absolute Eosinophils 0.0 10^3/cmm (0.0-0.7) 04/26/25 14:28 Basophils (Manual) 0.0 % 04/26/25 14:28 Absolute Basophils 0.0 10^3/cmm (0.0-0.2) 04/26/25 14:28 Nucleated RBCs # 0.0 /100WBC 05/02/25 03:32 Platelet Estimate Decreased (Normal) 04/26/25 14:28 Anisocytosis 1+ H 04/26/25 14:28 Peripher Smr Path Cons Sent for review 04/26/25 14:28 Specimen Type Arterial 04/28/25 12:47 Sample Site Brachial, right 04/28/25 12:47 ABG pH 7.41 (7.35-7.45) 04/28/25 12:47 ABG pCO2 45.3 mmHg (35-45) H 04/28/25 12:47 ABG pO2 82.7 mmHg (80.0-100.0) 04/28/25 12:47 ABG PO2/FiO2 Ratio 258 04/28/25 12:47 ABG HCO3 28.8 mmol/L (22-26) H 04/28/25 12:47 ABG Base Excess 3.6 mmol/L (-2.0-2.0) H 04/28/25 12:47 Hesham Test Pos 04/28/25 12:47 Hematocrit 34.4 % (42-52) L 04/28/25 12:47 O2 Delivery Device Nc 04/28/25 12:47 O2 Liters/Min 3.0 % 04/28/25 12:47 FiO2 32.0 % 04/28/25 12:47 School Based Therapist ID [place] 04/28/25 12:47 Sodium 137 mmol/L (136-145) 05/02/25 03:32 Potassium 4.3 mmol/L (3.5-5.1) 05/02/25 03:32 Chloride 99 mmol/L (98-107) 05/02/25 03:32 Carbon Dioxide 32 mmol/L (22-29) H 05/02/25 03:32 Anion Gap 10.3 (5-19) 05/02/25 03:32 BUN 20 mg/dL (8-23) 05/02/25 03:32 Creatinine 0.7 mg/dL (0.7-1.2) 05/02/25 03:32 GFR Calculation Not Reportable 05/02/25 03:32 Glucose 107 mg/dL (65-115) 05/02/25 03:32 Calculated Osmolality 287 mOsm/kg (285-295) 05/02/25 03:32 Lactate 3.0 mmol/L (0.5-2.2) H 04/27/25 14:13 Calcium 8.9 mg/dL (8.5-10.5) 05/02/25 03:32 Phosphorus 2.4 mg/dL (2.5-4.5) L 04/28/25 00:00 Magnesium 2.1 mg/dL (1.7-2.3) 04/29/25 04:51 Total Bilirubin 0.9 mg/dL (0.15-1.2) 05/02/25 03:32 AST 22 U/L (0-40) 05/02/25 03:32 ALT 51 U/L (0-41) H 05/02/25 03:32 Alkaline Phosphatase 143 U/L (40-130) H 05/02/25 03:32 Troponin T Baseline 85 ng/L (0-15) H 04/23/25 13:05 Troponin T 120 Minute 91.07 ng/L (0-15) H 04/23/25 15:12 Delta Troponin T 6.07 ABS# (0-10) 04/23/25 15:12 Troponin T Hi Sens 6Hr 94.41 ng/L (0-15) H 04/23/25 19:14 Troponin T Hi Sens 6Hr Delta 9.41 ng/L (0-12) 04/23/25 19:14 NT-Pro-B Natriuret Pep 9964 pg/mL (0-125) H 04/23/25 13:05 Total Protein 4.7 g/dL (6.6-8.7) L 05/02/25 03:32 Albumin 3.1 g/dL (3.5-5.2) L 05/02/25 03:32 Globulin 1.6 g/dL (1.3-4.6) 05/02/25 03:32 TSH 3.44 uIU/mL (0.27-4.20) 04/23/25 17:35 Random Cortisol 1.83 ug/dL (2.47-19.5) L 05/01/25 02:25 Cortisol Response 05/02/25 13:28 Digoxin 0.5 ng/mL (0.6-1.2) L 04/29/25 04:51 Adenovirus (PCR) Not detected (NOT DETECT) 04/26/25 14:50 Lyme Ab (Western Blot) <0.90 index 04/29/25 04:51 C. pneumoniae DNA (PCR) Not detected (NOT DETECT) 04/26/25 14:50 Coronavirus 229E (PCR) Not detected (NOT DETECT) 04/26/25 14:50 Hepatitis A IgM Ab Non-reactive (Nonreactive) 04/26/25 14: Hep Bs Antigen Non-reactive (Nonreactive) 04/26/25 14: Hep Bs Antibody > 1000.0 (11.5-1000) H 04/26/25 14:28 Hep B Core Total Ab Reactive (Nonreactive) H 04/26/25 14: Hepatitis C Antibody Reactive (Nonreactive) H 04/26/25 14: HCV RNA (PCR) IUs/ml <1.18 not detected Log IU/mL (NOT DETECTED) 04/26/25 16:10 HCV RNA (PCR) IU log10 <15 not detected IU/mL (NOT DETECTED) 04/26/25 16:10 Human Metapneumovir PCR Not detected (NOT DETECT) 04/26/25 14:50 Influenza A (H1) PCR Not detected (NOT DETECT) 04/26/25 14:50 Influ A (H1/09) PCR Not detected (NOT DETECT) 04/26/25 14:50 Influenza A (H3) PCR Not detected (NOT DETECT) 04/26/25 14:50 Influenza Type A (PCR) Not detected (NOT DETECT) 04/26/25 14:50 Influenza Type B (PCR) Not detected (NOT DETECT) 04/26/25 14:50 M. pneumoniae (PCR) Not detected (NOT DETECT) 04/26/25 14:50 Parainfluenza 1 (PCR) Not detected (NOT DETECT) 04/26/25 14:50 Parainfluenza 2 (PCR) Not detected (NOT DETECT) 04/26/25 14:50 Parainfluenza 3 (PCR) Not detected (NOT DETECT) 04/26/25 14:50 Parainfluenza 4 (PCR) Not detected (NOT DETECT) 04/26/25 14:50 RSV Type A (PCR) Not detected (NOT DETECT) 04/26/25 14:50 RSV Type B (PCR) Not detected (NOT DETECT) 04/26/25 14:50 Entero/Rhino (PCR) Not detected (NOT DETECT) 04/26/25 14:50 SARS-CoV-2 (PCR) Not detected (NOT DETECT) 04/26/25 14:50 A&P Assessment and plan 1. Acute on chronic heart failure with reduced ejection fraction (HFrEF, <= 40%) and combined systolic and diastolic dysfunction: The heart failure seems to be compensated. May continue on the current management. Patient was given extra dose of Lasix this morning 2. Atherosclerosis of knik coronary artery of knik heart without angina pectoris: Patient is scheduled for Myocardial perfusion imaging on Saturday to evaluate the coronary status and decide on further management. Continue on the current management for the time being. Based on the angiogram findings, further recommendations will be made 3. Ventricular arrhythmia: Status post ICD discharge. Currently has no recurrence of ventricular arrhythmia. May continue on the current management. 4. ICD (implantable cardioverter-defibrillator) in place: ICD function appears to be appropriate. Continue on the current monitoring schedule. 5. PAF (paroxysmal atrial fibrillation): Patient is currently on subcu Lovenox. This may be continued. 6. Chronic obstructive pulmonary disease, unspecified COPD type: Continue bronchodilator treatment. The respiratory status seems to be stable Plan: Patient may be continued on the telemetry Based on the Myocardial perfusion imaging results, further recommendations will be made PDMP PDMP Reviewed: Not Reviewed Attestations 2 Medical Necessity Statement*: Patient requires continued hospital stay for close monitoring and further management Coding Level of Care Code 60283 Diagnoses Acute on chronic heart failure with reduced ejection fraction (HFrEF, <= 40%) and combined systolic and diastolic dysfunction I50.43 Atherosclerosis of knik coronary artery of knik heart without angina pectoris I25.10 Coronary Disease-Associated Artery/Lesion type: knik artery Ventricular arrhythmia I49.9 ICD (implantable cardioverter-defibrillator) in place Z95.810 PAF (paroxysmal atrial fibrillation) I48.0 Chronic obstructive pulmonary disease, unspecified COPD type J44.9 COPD type: unspecified COPD
[2025-05-02] MEDS: cosyntropin 0.25 mg SDV IVP (14:01)
[2025-05-02] MEDS: FUROsemide 10 mg/mL SDV 4mL 40 MG IVP (14:01)
[2025-05-02 14:08] LABS: Cosyntropin Baseline 12.97 mcg/dL
[2025-05-02 15:48] LABS: Cosyntropin 30 Minute 17.51 mcg/dL
[2025-05-02 15:50] LABS: Cosyntropin 1 Hour 20.31 mcg/dL
--- NOTE | 2025-05-02 16:14 | P.PN_ITS ---
Subjective 2 Subjective: Patient is upset today as he wants to go home. After discussion he is willing to stay for stress test tomorrow. Medications: Reviewed: Yes Medication Review Details: Current Medications Acetaminophen (Acetaminophen 325 Mg Tablet) 650 mg PO Q6H PRN PRN Reason: Mild/Mod Pain Or Temp >/= 101 Al Hydrox/Mg Hydrox/Simethicone (Dcro-Fzd-Nlegvjhoh-Liss 30 Ml Udc) 15 ml PO Q6H PRN PRN Reason: INDIGESTION Alprazolam (Alprazolam 0.5 Mg Tablet) 0.5 mg PO BEDTIME PRN PRN Reason: anxiety Aspirin (Aspirin 81 Mg Ec Tablet) 81 mg PO DAILY [facility] Last Admin: 05/02/25 05:06 Dose: 81 mg Atorvastatin Calcium (Atorvastatin 40 Mg Tablet) 40 mg PO DAILY [facility] Last Admin: 05/02/25 05:06 Dose: 40 mg Budesonide (Budesonide 0.5 Mg/2 Ml Neb) 0.5 mg INHALATION BID.RESPIRATORY [facility] Last Admin: 05/02/25 08:30 Dose: 0.5 mg Calcium Carbonate (Calcium Carbonate 500 Mg Chew Tablet) 1,000 mg PO Q4H PRN PRN Reason: DYSPEPSI Citalopram Hydrobromide (Citalopram 20 Mg Tablet) 20 mg PO DAILY [facility] Last Admin: 05/02/25 05:06 Dose: 20 mg Digoxin (Digoxin 125 Mcg Tablet) 125 mcg PO DAILY@1200 [facility] Last Admin: 05/01/25 11:32 Dose: 125 mcg Doxycycline Monohydrate (Doxycycline 100 Mg Tablet) 100 mg PO BID [facility]; Protocol Stop: 05/03/25 16:59 Last Admin: 05/02/25 05:06 Dose: 100 mg Enoxaparin Sodium (Enoxaparin 80 Mg/0.8 Ml Syringe) 80 mg SUBCUT Q12H [facility] Last Admin: 05/02/25 04:36 Dose: 80 mg Furosemide (Furosemide 40 Mg Tablet) 40 mg PO DAILY [facility] Last Admin: 05/02/25 05:06 Dose: 40 mg Piperacillin Sod/Tazobactam (Sod 3.375 gm/ Sodium Chloride) 50 mls @ 12.5 mls/hr IV Q8H [facility] Last Infusion: 05/02/25 06:11 Dose: Infused Ipratropium [place] (Ipratropium 0.5 Mg/2.5 Ml Neb) 0.5 mg INHALATION Q4H.RESPIRATORY [facility] Last Admin: 05/02/25 08:30 Dose: 0.5 mg Levalbuterol HCl (Levalbuterol 1.25 Mg/3 Ml Neb) 1.25 mg INHALATION Q4H.RESPIRATORY [facility] Last Admin: 05/02/25 08:30 Dose: 1.25 mg Metolazone (Metolazone 5 Mg Tablet) 2.5 mg PO DAILY [facility] On Hold: 04/28/25 08:43 Metoprolol Tartrate (Metoprolol Tartrate 25 Mg Tablet) 12.5 mg PO BID@0900,2100 [facility] Last Admin: 05/01/25 20:32 Dose: 12.5 mg Midodrine (Midodrine 5 Mg Tablet) 15 mg PO TID [facility] Last Admin: 05/02/25 05:05 Dose: 15 mg Ondansetron HCl (Ondansetron 2 Mg/Ml Sdv 2 Ml) 4 mg IVP Q8H PRN PRN Reason: vomiting, or N/V if npo Pantoprazole Sodium (Pantoprazole 40 Mg Sdv) 40 mg IVP Q24H [facility] Last Admin: 05/01/25 17:37 Dose: 40 mg Potassium Chloride (Potassium Chloride Er 20 Meq Tablet) 20 meq PO BID [facility] Last Admin: 05/02/25 05:06 Dose: 20 meq Senna (Sennosides 8.6 Mg Tablet) 17.2 mg PO BEDTIME [facility] Last Admin: 05/01/25 20:36 Dose: Not Given Vitals/I&O/Wt Last Vital Signs Temp 97.6 F 05/02/25 08:00 Pulse 96 05/02/25 15:53 Resp 16 05/02/25 15:42 BP 95/64 05/02/25 12:00 Pulse Ox 96 05/02/25 15:42 O2 Del Method Nasal Cannula 05/02/25 15:42 O2 Flow Rate 2 05/02/25 15:42 05/02/25 05/02/25 05/02/25 06:59 14:59 22:59 Intake Total 50 / 680 530 / 530 Output Total 150 / 1400 1650 / 1650 Balance -100 / -720 -1120 / -1120 Weight last 48 hrs Weight 79.6 kg Weight 81.9 kg Physical Exam 2 Narrative: General: No acute distress, AO x3 HEENT: PERRLA, pupils bilaterally equal and reactive, pallors not present Chest: Normal vesicular breath sounds, no added sounds, equal good air entry bilaterally CVS: S1-S2 regular, no murmurs, no tachycardia, no gallops, no rubs Abdomen: Soft, nontender, no organomegaly, bowel sounds present Neuro: No focal deficits, no facial deformity, AO x3, power 5/5 in all limbs Data 05/02/25 03:32 05/02/25 03:32 A&P Assessment and plan 1. Acute on chronic hypoxic respiratory failure: Patient found to have high proBNP around 10,000, delta Trope were not significantly raised, EKG reviewed Recent echo showed ejection fraction of 40 to 45%, Diuresing well (net -1.6 L over the last 24 hours) cardio consulted and recommended: Hypotension limiting guideline directed medical therapy for CHF Continue Lasix 40 mg IV twice daily Continue midodrine 10 mg 3 times daily Start ivabradine 5 mg twice daily?if not on our formulary this could be started as an outpatient recommended stress test prior to discharge due to his history of CAD/CABG and frequent hospitalizations for CHF exacerbations. Stress test would be in the form of a Lexiscan nuclear stress test. Lower extremity compression socks Once euvolemic, recommend changing Lasix to Jardiance and spironolactone combination Start digoxin 0.25mg IV q 6hours x 2 then 0.125mg po daily Patient compliant to his medication, and may need to adjust his diuretics as inpatient and later to follow as outpatient Daily weight base analysis 2. Acute on chronic heart failure with reduced ejection fraction (HFrEF, <= 40%) and combined systolic and diastolic dysfunction: Cardiology on board Continue diuresis along with the support of Lasix to support the blood pressure Midodrine 10 mg 3 times daily Aspirin and statin to continue Telemetry monitoring Intake and output monitoring Daily weight analysis 3. Afib: Low A-fib burden of 1.4% according to pacemaker interrogation 04/04/2025 Continue Eliquis metoprolol on hold currently due to hypotension Continue on aspirin Start digoxin 0.25mg IV q 6hours x 2 then 0.125mg po daily 4. ICD (implantable cardioverter-defibrillator) in place: Functioning well 5. Hypotension: Continue midodrine 10 3 times daily 1 dose of albumin to give Monitor blood pressure 6. Chronic obstructive pulmonary disease, unspecified COPD type: Patient not having any features of COPD exacerbation at the moment Continue treatment with ipratropium, budesonide and lev albuterol prednisone 40mg oral daily for 5 days Oxygen therapy as per protocol 7. GERD (gastroesophageal reflux disease): PPI daily 8. Hyperlipidemia: Continue home dose statins 9. Transaminitis: Could be related to congestive hepatomegaly currently improving Ultrasound liver showed coarse hepatic echotexture with possible hepatic steatosis Follow liver enzymes daily 10. Encounter for screening involving social determinants of health (SDoH): Patient had multiple recurrent admissions, case management involved. Patient has home health aide as his daughter. Case management involved for possible transfer to SNF/usp for further improvement OT PT evaluation 11. Thrombocytopenia: Plan: VTE: Intermittent compression devices. Patient platelets are low Diet: Cardiac 04/26/2025. 74-year-old male with known history of COPD, typically on 2 L/min supplemental O2, history of CHF, last echocardiogram from April 05, 2025 with ejection fraction of 40 to 45% with mild global hypokinesia. He is currently admitted with acute on chronic worsening hypoxemic respiratory failure. Likely related to acute on chronic systolic CHF exacerbation. Patient is currently on diuresis with Lasix 40 mg IV every 12 hours which we will continue. His IV diuresis was interrupted overnight due to soft blood pressure. He is currently on midodrine 10 mg 3 times daily. Goal-directed medical therapy for heart failure has been unable to be optimized due to soft BP. Discussed with cardiology starting low-dose dopamine to maintain blood pressure however currently the concern is that it may worsen his tachycardia therefore holding off. Midodrine has been increased to 15 mg 3 times daily and Lasix increased to 20 mg IV every 8 hours per cardiology recommendations. Continue IV diuresis. Urine output 980 cc last 24 hours. Net -1200 cc. Bladder scan today to ensure no urinary retention contributing to lower output. Crackles on exam today diffusely. It will be critical to maintain his IV diuresis. Oxygen requirement up at 3 L/min today. Check chest x-ray. Platelet count dropping to 51,000 today, currently uncertain as to the reason for this drop. Reviewing his prior admission, his platelet count was at 197 on April 08, 2025, lowest platelet count in the past has been at 149. I do not see any mention of thrombocytopenia on his past medical history. LFTs noted to be mildly elevated. Ultrasound showing hepatic steatosis. No known history of cirrhosis. Will check peripheral smear to assess for platelet clumping and focal thrombocytopenia. Check CBC with manual differential to confirm thrombocytopenia. Hold Eliquis as patient had mild hemoptysis this morning along with the platelet count of 50,000. Unlikely HIT as patient has not been exposed to any heparin products during this admission. Check respiratory viral panel as from the cytopenia and deranged LFTs may be related to acute viral infection. He has been afebrile this current admission. Changed to inpatient admission 04/27/2025 Continues to have bilateral crackles. Increased amount of expectoration today, however bleeding does not appear to have increased with regards to hemoptysis. Holding Eliquis today again. Net -1.4 L. Negative respiratory viral panel. No fever or leukocytosis. Will obtain CT of the chest today to assess for edema, worsening effusion versus possibly developing pneumonia given increased crackles and increased expectoration today. Low probability of PE given patient is chronically on Eliquis. Continue diuresis with Lasix 20 mg IV 3 times daily. Blood pressure lowest 89/61, MAP over 65 on midodrine 15 mg 3 times daily. Will discuss with cardiology if may benefit from Lasix drip. Platelet count improving at 69,000 today. Unclear cause. Hepatitis serology negative for hep A IgM. Hep B core total antibody positive however surface antigen negative consistent with past infection. Hepatitis C Ab positive, pending hep C PCR. No evidence of cirrhosis on ultrasound imaging. Pending peripheral smear. 04/28/2025 Continues to have bilateral crackles, however somewhat improved compared to yesterday. More predominant in the left lower lobe today. CT of the chest was performed yesterday which showed pneumonia. IV piperacillin/tazobactam and doxycycline was added at the time. Speech therapy evaluation requested due to concern for aspiration. Platelet count at 70,000, stable. CT chest additionally showed a moderate left pleural effusion. Ultrasound of the chest ordered today to estimate extent of fluid if amenable to thoracentesis. Hep C PCR not detected. Consistent with past infection. Increase diuresis today to 40 mg IV 3 times daily Lasix. Pending sputum culture and Gram stain. MRSA nasal screen negative. 04/29/2025 : clinically improving today. breathing is less labored. net negative 1.9L. continue iv lasix 40 mg tid. continue zosyn and doxycycline. USG chest with small effusions, not amenable to thoracentessis. Encourage OOB 04/30/2025 Clinically improving. Discontinue IV Lasix. Transition to 40 mg p.o. twice daily Lasix. Continue Zosyn and doxycycline. Participated with physical therapy today. Continue to encourage ambulation. Plan for stress test on Saturday per cardiology. Thrombocytopenia resolving, currently at 155. Hemoptysis resolved. Will resume anticoagulation. Using full dose Lovenox instead of Eliquis for now in case stress test is abnormal and needs an angiogram in follow-up. May 01, 2025 Clinically stable. Tolerating oral diuresis. Net -800 cc last 24 hours. Clinically appearing to be euvolemic now. Improving from a pneumonia perspective. Expectorating less. No further hemoptysis. Platelet count recovered at 131. Continue piperacillin/tazobactam, day 5 today, aim to complete a 7-day course. Continue doxycycline for atypical coverage, total 5 days. Patient is currently planned for a stress test on Saturday. Unfortunately the test is unable to be performed over the weekend. May 02, 2025 Patient is upset today, wants to return home. Net -1 L last 24 hours. He did receive an additional dose of 40 mg IV Lasix today as he was noted to to have interval crackles compared to yesterday's exam. Plan for stress test tomorrow. Oral doxycycline discontinued after 5 days. Piperacillin/tazobactam day 6 today. Complete a 7 course tomorrow and then discontinue. Noted low random cortisol at 1.83 yesterday. Of note this is after patient had received 5 days of p.o. prednisone 40 mg. Started on prednisone 10 mg twice daily today and ordered for cosyntropin stimulation test for confirmation. To decide regarding steroids at discharge based on results of cosyntropin stim test. PDMP PDMP Reviewed: Not Reviewed Attestations 2 Medical Necessity Statement*: Stress test tomorrow, follow-up cosyntropin stim test, additional dose iv lasix today Coding Level of Care Code Acute Code for [facility] Fwd Diagnoses Acute on chronic hypoxic respiratory failure J96.21 Acute on chronic heart failure with reduced ejection fraction (HFrEF, <= 40%) and combined systolic and diastolic dysfunction I50.43 Afib I48.91 ICD (implantable cardioverter-defibrillator) in place Z95.810 Hypotension I95.9 Chronic obstructive pulmonary disease, unspecified COPD type J44.9 COPD type: unspecified COPD GERD (gastroesophageal reflux disease) K21.9 Hyperlipidemia E78.5 Transaminitis R74.01 Encounter for screening involving social determinants of health (SDoH) Z13.9 Thrombocytopenia D69.6
[2025-05-03] VITALS (12 sets, daily range): BP systolic 100–110; BP diastolic 68–79; PULSE 82–96; RESP 18–28; TEMP 36.4–36.6; O2SAT 91–99
[2025-05-03] MEDS: piperacillin-tazobactam 3.375 GM in sodium chloride 0.9% (plus) 50 ML IV ×2 (01:43→11:12)
[2025-05-03 03:12] LABS: Hematocrit 33.9 % (37-53); Hemoglobin 10.70 g/dL (11.27-16.99); Mean Corpuscular HGB Conc 31.6 g/dL (30-55); Mean Corpuscular Hemoglobin 29.6 pg (27-33); Mean Corpuscular Volume 93.9 fl (82-101); Nucleated Red Blood Cells % 0 %; Platelet Count 166 10^3/cmm (157-399); Red Blood Count 3.61 10^6/uL (3.85-5.65); White Blood Count 5.04 10^3/uL (3.29-11.43)
[2025-05-03 03:53] LABS: Alanine Aminotransferase 43 U/L (0-41); Albumin Level 3.2 g/dL (3.5-5.2); Alkaline Phosphatase 143 U/L (40-130); Anion Gap 14.2 (5-19); Aspartate Amino Transferase 17 U/L (0-40); Blood Urea Nitrogen 19 mg/dL (8-23); Calcium 8.7 mg/dL (8.5-10.5); Carbon Dioxide 30 mmol/L (22-29); Chloride 97 mmol/L (98-107); Globulin 1.6 g/dL (1.3-4.6); Glucose 263 mg/dL (65-115); Osmolality Calculated 295 mOsm/kg (285-295); Potassium 4.2 mmol/L (3.5-5.1); Sodium 137 mmol/L (136-145); Total Protein 4.8 g/dL (6.6-8.7)
--- NOTE | 2025-05-03 07:42 | PC.NURSE ---
pt is off unit for a cardiac stress test.
--- NOTE | 2025-05-03 08:58 | P.PN_ITS ---
<Statement entered by Nahum Hollins M.D - 05/08/25 19:15> Patient was cared for in conjunction with an advanced practice practitioner. I reviewed the chart and all pertinent data including imaging, telemetry, and laboratory results. I discussed the patient in detail with the advanced practice practitioner. Please see their note for agreed upon plan of care and results for the patient. Subjective 2 Subjective: Stress test performed today, in workup of sustained an non sustained VT. No ischemia present. States he feels well, no chest pain or worsening shortness of breath. Vitals/I&O/Wt Last Vital Signs Temp 97.9 F 05/03/25 08:00 Pulse 92 05/03/25 08:18 Resp 18 05/03/25 08:13 BP 110/78 05/03/25 08:00 Pulse Ox 99 05/03/25 08:13 O2 Del Method Nasal Cannula 05/03/25 08:13 O2 Flow Rate 2 05/03/25 08:13 05/02/25 05/03/25 05/03/25 22:59 06:59 14:59 Intake Total 410 / 940 50 / 50 Output Total 1400 / 3225 175 / 3225 Balance -990 / -2285 -175 / -2285 50 / 50 Weight last 48 hrs Weight 169 lb 12.095 oz Weight 169 lb 12.095 oz Weight 175 lb 7.807 oz Physical Exam 2 Const: COMMON NORMALS: no acute distress and patient oriented x3 GENERAL APPEARANCE: cooperative and comfortable ORIENTATION/CONSCIOUSNESS: Yes awake, Yes oriented to person, Yes oriented to place and Yes oriented to time Chest: COMMONS NORMALS: normal inspection of the chest and normal palpation of entire chest wall CHEST: Yes Symmetrical chest wall rise Resp: COMMON NORMALS: normal respiratory effort, No retractions, No use of accessory muscles and clear to auscultation bilaterally EFFORT & INSPECTION: Yes symmetric chest movement AUSCULTATION: clear to auscultation bilaterally Cardio: COMMON NORMALS: regular rate, regular rhythm, S1 normal heart sound present, S2 normal heart sound present, No gallops present (Cardio), No clicks present (Cardio), No murmurs present (Cardio) and No rub (Cardio) RATE: r egular rate RHYTHM: regular rhythm HEART SOUNDS: S1 normal heart sound present and S2 normal heart sound present PERIPHERAL PULSES: radial pulses present Extremity: COMMON NORMALS: no pedal edema Neuro: COMMON NORMALS: patient oriented x3 and moves all extremities S ENSORIUM/ORIENTATION: Yes oriented to person, Yes oriented to place and Yes oriented to time Data 05/03/25 02:40 05/03/25 02:40 A&P Assessment and plan 1. ICD (implantable cardioverter-defibrillator) in place: 2. PAF (paroxysmal atrial fibrillation): 3. Ventricular arrhythmia: 4. Acute on chronic heart failure with reduced ejection fraction (HFrEF, <= 40%) and combined systolic and diastolic dysfunction: 5. CAD (coronary artery disease): 6. Hypertension: 7. Chronic obstructive pulmonary disease, unspecified COPD type: Plan: Appears euvolemic, maintaining good blood pressures with midodrine. Continue aspirin, metoprolol tartrate 12.5 BID, digoxin 125mcg daily, lasix 40mg daily, statin. He can discharge home today, no changes to medications recommended. Follow up in the cardiology clinic in 2 weeks. PDMP PDMP Reviewed: Not Reviewed Attestations 2 Medical Necessity Statement*: ischemic workup of VT Coding Level of Care Code Acute Code for [facility] Fwd Diagnoses ICD (implantable cardioverter-defibrillator) in place Z95.810 PAF (paroxysmal atrial fibrillation) I48.0 Ventricular arrhythmia I49.9 Acute on chronic heart failure with reduced ejection fraction (HFrEF, <= 40%) and combined systolic and diastolic dysfunction I50.43 CAD (coronary artery disease) I25.10 Hypertension I10 Chronic obstructive pulmonary disease, unspecified COPD type J44.9 COPD type: unspecified COPD
--- NOTE | 2025-05-03 09:24 | PC.SOCIAL ---
IMM Update pg 2 of IMM Updated and reviewed w/ patient. Copy provided and copy dated, initialed and placed in chart.
[2025-05-03 10:38] LABS: NT Pro B Type Natriuretic Pept 14564 pg/mL (0-125)
--- NOTE | 2025-05-03 13:19 | NMCV_ITS ---
NM regi perf SPECT r/s* [id number] HeshamPhilippe Age: 74 Gender: M : 1950 Exam Date: 05/03/2025 06:26 Ordering Phys: Char Linder Technologist: SHANICE Blum Exam Location: [facility] Indications: cp STRESS TEST Please see separate stress test report in [facility] for full findings IMAGE PROTOCOL Rest/Stress 1 Lexiscan Day Radiopharmaceutical Dose (mCi) Administration Site Administered by Rest: Tc-99m 10.6 IV SHANICE Blum Sestamibi Stress:Tc-99m 32.8 IV SHANICE Lyons Sestamibi Rest: 03-May-2025 60 Discovery 630 Stress: 03-May-2025 30 Discovery 630 0.4mg Lexiscan. Images obtained in supine and prone position. SPECT RESULTS Technical Quality: Good Raw Data Analysis: Normal Image Corrections: No attenuation or motion correction applied Summed Stress Score: 39 Summed Rest Score: 40 Summed Difference Score: 2 PERFUSION FINDINGS Large area of severely decreased tracer uptake involving the mid and apical anterior, basal and mid anterolateral, basal and mid inferolateral, basal mid and apical inferior all the apical segments including the LV apex. Subtle areas of reversibility was noted in the mid inferolateral and apical septal regions. FUNCTIONAL RESULTS (calculated via Gated SPECT) Stress Image LV EF (%): 32 Stress EDV (mL):178 TID: 1.05 Stress ESV (mL):121 FUNCTIONAL FINDINGS: Severe diffuse hypokinesia of the left ventricle with dyskinetic apex. Moderately dilated LV cavity IMPRESSIONS 1. Myocardial perfusion imaging revealing large area of persistent decreased tracer uptake involving the anterior, anterolateral, inferolateral, inferior and all the apical segments suggesting extensive scarring in the distribution of all the 3 coronary arteries with possible subtle areas of carolynn-infarction ischemia.-(Summed stress score of 39 with resting score of 40) 2. Diminished LV ejection fraction of 32%. 3. Segmental wall motion analysis revealing severe diffuse hypokinesis of the left ventricle with a dyskinetic LV apex. 4. Moderately dilated LV cavity. No similar previous studies are available for comparison Dr Cassandra Pedro MD FAC (Electronically Signed) Final Date: 03 May 2025 09:28 S
--- NOTE | 2025-05-03 14:32 | PM.DCS ---
Discharge Providers Date of Admission: 04/26/25 09:40 Date of Discharge: May 03, 2025 Attending Provider at Admission: Tyson Watters MD Attending Provider at Discharge: GONZALEZ Ferguson, APPRENTICE PAINTER HAND Consults: Cardiology, Char Linder, Nurse Practitioner Primary Care Provider: YAMILA Almeida Diagnoses at Discharge Discharge Diagnosis 1. ICD (implantable cardioverter-defibrillator) in place: Details from hospital stay: Followed by telemetry. Stress test performed this admission. 2. PAF (paroxysmal atrial fibrillation): Details from hospital stay: See Ventricular Arrhythmia. 3. Ventricular arrhythmia: Details from hospital stay: Patient had stress test performed today s/t VT. No ischemia, chest pain, shortness of breath. 4. Acute on chronic heart failure with reduced ejection fraction (HFrEF, <= 40%) and combined systolic and diastolic dysfunction: Details from hospital stay: Follow up with outpatient Cardiology. 5. CAD (coronary artery disease): Details from hospital stay: Patient had stress test performed today s/t VT. No ischemia, chest pain, shortness of breath. Follow up with Cardiology outpatient. 6. Essential hypertension: Details from hospital stay: Monitor BP with home regimen. 7. Chronic obstructive pulmonary disease, unspecified COPD type: Details from hospital stay: Continue home regimen. Reason for Visit Reason for Visit: Swelling on chest Hard to breath and hard to walk Brief History: Patient placed on doxy for PNA. Repeat BNP ordered. Patient had stress test performed today s/t VT. No ischemia, chest pain, shortness of breath. Hospital Course Hospital Course Patient came with shortness of breath x 1-2 weeks exacerbated with ambulation. History of COPD, home o2, CHF, ICD, EF 45%. He had telemetry and vital monitoring. Cosyntropin test > 20. Patient had stress test performed today s/t VT. No ischemia, chest pain, shortness of breath. Aspiration requiring level 5 minced and moist diet ordered. Transaminitis liver enzyme levels improved. Thrombocytopenia resolved. Hemoptysis resolved. Okay to discharge to home health per Cardiology and Hospitalist Service. Follow up with Primary Care Provider outpatient. Pharmacy is [facility] in [place], [place]. Physical Exam Const: ORIENTATION/CONSCIOUSNESS: Yes awake, Yes oriented to person, Yes oriented to place and Yes oriented to time HENMT: COMMON NORMALS: normocephalic HEAD & SCALP: normocephalic Eye: COMMON NORMALS: Equal, round and reactive pupils present and EOMs intact bilaterally PUPIL: Yes Equal, round and reactive pupils present Neck/C-Spine: COMMON NORMALS: full ROM Neuro: SENSORIUM/ORIENTATION: Yes oriented to person, Yes oriented to place and Yes oriented to time Psych: COMMON NORMALS: mental status grossly normal Discharge Data Studies Completed and Pending Completed Studies During Hospitalization Category Date Time Status CT chest wo con [id number] Routine Cat Scan 04/27/25 13:18 Completed CXRP [XR chest 1V portable [id number]] Routine Exams 04/26/25 13:54 Completed CXRP [XR chest 1V portable [id number]] Stat Exams 04/27/25 13:16 Completed XR chest 1V portable [id number] Stat Exams 04/23/25 12:48 Completed NM regi perf SPECT r/s* [id number] Routine Nuc Med 05/03/25 13:19 Completed CV. echo limited [id number] Routine Ultrasound 04/28/25 15:05 Com[place] chest [id number] Routine Ultrasound 04/28/25 15:05 Completed US liver [id number] Routine Ultrasound 04/24/25 22:03 Completed Pending at discharge Category Date Time Status Cardiac Stress Test MIBI [Sestamibi Stress Test Request Exams 04/30/25 13:19 Ordered ] Routine CMP [Comprehensive Metabolic Panel] AM LABS Lab 05/04/25 04:00 Ordered Complete Blood Count w/Auto AM LABS Lab 05/04/25 04:00 Ordered Tick Panel AM LABS Lab 04/29/25 04:51 Results Radiology Impressions Liver Ultrasound 04/24/25 22:03 IMPRESSION: 1. Mild gallbladder wall thickening, nonspecific although could relate to partial contraction or underlying liver disease. 2. Mildly coarsened hepatic echotexture which can be seen in the setting of hepatocellular disease or hepatic steatosis. Please correlate clinically. 3. Incidental note of a right pleural effusion. Small volume ascites. Chest X-Ray 04/27/25 13:16 Impression: 1. Partial clearing of pulmonary vascular congestion. 2. No change in cardiomegaly, atherosclerosis, cardiac pacemaker and pleural effusions. Chest CT 04/27/25 13:18 IMPRESSION: 1. Small to moderate bilateral pleural effusions increased since prior exam 2. Mild inflammatory ground-glass density now present in the dorsal left upper lobe and lingula as well as the within the right lower lobe. 3. Small volume upper abdominal ascites, new from the prior exam. 4. Body wall anasarca. 5. Retrocardiac hiatal hernia. 6. Centrilobular emphysema. 7. Mediastinal adenopathy as defined. This is likely reactive. But should be followed to resolution. COMMENTS: The presence of pulmonary emphysema on CT is an independent risk factor for lung cancer. In the absence of a history or active diagnosis of lung cancer, it is recommended that this patient with emphysema be evaluated for enrollment in a low dose CT lung cancer screening program. Chest Ultrasound 04/28/25 15:05 IMPRESSION: Small bilateral pleural effusions, RIGHT greater than LEFT. Laboratory Results WBC 5.04 10^3/uL (3.29-11.43) 05/03/25 02:40 RBC 3.61 10^6/uL (3.85-5.65) L 05/03/25 02:40 Hgb 10.70 g/dL (11.27-16.99) L 05/03/25 02:40 Hct 33.9 % (37-53) L 05/03/25 02:40 MCV 93.9 fl (82-101) 05/03/25 02:40 MCH 29.6 pg (27-33) 05/03/25 02:40 MCHC 31.6 g/dL (30-55) 05/03/25 02:40 RDW 18.5 % (12.1-15.1) H 05/03/25 02:40 Plt Count 166 10^3/cmm (157-399) D 05/03/25 02:40 MPV 11.3 fL (7.4-10.4) H 05/03/25 02:40 Neut % (Auto) 86.9 % 05/03/25 02:40 Lymph % (Auto) 5.4 % 05/03/25 02:40 Bailey % (Auto) 7.1 % 05/03/25 02:40 Eos % (Auto) 0.0 % 05/03/25 02:40 Baso % (Auto) 0.0 % 05/03/25 02:40 Neut # (Auto) 4.38 10^3/uL (1.8-7.7) 05/03/25 02:40 Lymph # (Auto) 0.3 10^3/uL (0.8-4.8) L 05/03/25 02:40 Bailey # (Auto) 0.4 10^3/uL (0.2-0.9) 05/03/25 02:40 Eos # (Auto) 0.0 10^3/uL (0.0-0.8) 05/03/25 02:40 Baso # (Auto) 0.0 10^3/uL (0.0-0.1) 05/03/25 02:40 Nucleated RBC % (auto) 0 % 05/03/25 02:40 Total Counted 100 (0-100) 04/26/25 14:28 Atypical Lymphs % 0.0 % (0-5) 04/26/25 14:28 Absolute Neutrophils 7.2 10^3/cmm (1.4-6.5) H 04/26/25 14:28 Segmented Neutrophils 88 % 04/26/25 14:28 Band Neutrophils 1.0 % 04/26/25 14:28 Absolute Lymphocytes 0.6 10^3/cmm (1.2-3.4) L 04/26/25 14:28 Lymphocytes (Manual) 8 % 04/26/25 14:28 Monocytes (Manual) 3.0 % 04/26/25 14:28 Absolute Monocytes 0.2 10^3/cmm (0.1-0.6) 04/26/25 14:28 Eosinophils (Manual) 0 % 04/26/25 14:28 Absolute Eosinophils 0.0 10^3/cmm (0.0-0.7) 04/26/25 14:28 Basophils (Manual) 0.0 % 04/26/25 14:28 Absolute Basophils 0.0 10^3/cmm (0.0-0.2) 04/26/25 14:28 Nucleated RBCs # 0.0 /100WBC 05/03/25 02:40 Platelet Estimate Decreased (Normal) 04/26/25 14:28 Anisocytosis 1+ H 04/26/25 14:28 Peripher Smr Path Cons Sent for review 04/26/25 14:28 Specimen Type Arterial 04/28/25 12:47 Sample Site Brachial, right 04/28/25 12:47 ABG pH 7.41 (7.35-7.45) 04/28/25 12:47 ABG pCO2 45.3 mmHg (35-45) H 04/28/25 12:47 ABG pO2 82.7 mmHg (80.0-100.0) 04/28/25 12:47 ABG PO2/FiO2 Ratio 258 04/28/25 12:47 ABG HCO3 28.8 mmol/L (22-26) H 04/28/25 12:47 ABG Base Excess 3.6 mmol/L (-2.0-2.0) H 04/28/25 12:47 Hesham Test Pos 04/28/25 12:47 Hematocrit 34.4 % (42-52) L 04/28/25 12:47 O2 Delivery Device Nc 04/28/25 12:47 O2 Liters/Min 3.0 % 04/28/25 12:47 FiO2 32.0 % 04/28/25 12:47 Textile Screen Maker ID Monro 04/28/25 12:47 Sodium 137 mmol/L (136-145) 05/03/25 02:40 Potassium 4.2 mmol/L (3.5-5.1) 05/03/25 02:40 Chloride 97 mmol/L (98-107) L 05/03/25 02:40 Carbon Dioxide 30 mmol/L (22-29) H 05/03/25 02:40 Anion Gap 14.2 (5-19) 05/03/25 02:40 BUN 19 mg/dL (8-23) 05/03/25 02:40 Creatinine 0.7 mg/dL (0.7-1.2) 05/03/25 02:40 GFR Calculation Not Reportable 05/03/25 02:40 Glucose 263 mg/dL (65-115) H 05/03/25 02:40 Calculated Osmolality 295 mOsm/kg (285-295) 05/03/25 02:40 Lactate 3.0 mmol/L (0.5-2.2) H 04/27/25 14:13 Calcium 8.7 mg/dL (8.5-10.5) 05/03/25 02:40 Phosphorus 2.4 mg/dL (2.5-4.5) L 04/28/25 00:00 Magnesium 2.1 mg/dL (1.7-2.3) 04/29/25 04:51 Total Bilirubin 0.8 mg/dL (0.15-1.2) 05/03/25 02:40 AST 17 U/L (0-40) 05/03/25 02:40 ALT 43 U/L (0-41) H 05/03/25 02:40 Alkaline Phosphatase 143 U/L (40-130) H 05/03/25 02:40 Troponin T Baseline 85 ng/L (0-15) H 04/23/25 13:05 Troponin T 120 Minute 91.07 ng/L (0-15) H 04/23/25 15:12 Delta Troponin T 6.07 ABS# (0-10) 04/23/25 15:12 Troponin T Hi Sens 6Hr 94.41 ng/L (0-15) H 04/23/25 19:14 Troponin T Hi Sens 6Hr Delta 9.41 ng/L (0-12) 04/23/25 19:14 NT-Pro-B Natriuret Pep 33303 pg/mL (0-125) H 05/03/25 02:40 Total Protein 4.8 g/dL (6.6-8.7) L 05/03/25 02:40 Albumin 3.2 g/dL (3.5-5.2) L 05/03/25 02:40 Globulin 1.6 g/dL (1.3-4.6) 05/03/25 02:40 TSH 3.44 uIU/mL (0.27-4.20) 04/23/25 17:35 Random Cortisol 1.83 ug/dL (2.47-19.5) L 05/01/25 02:25 Cortisol Response 05/02/25 13:28 Digoxin 0.5 ng/mL (0.6-1.2) L 04/29/25 04:51 Adenovirus (PCR) Not detected (NOT DETECT) 04/26/25 14:50 Lyme Ab (Western Blot) <0.90 index 04/29/25 04:51 C. pneumoniae DNA (PCR) Not detected (NOT DETECT) 04/26/25 14:50 Coronavirus 229E (PCR) Not detected (NOT DETECT) 04/26/25 14:50 Hepatitis A IgM Ab Non-reactive (Nonreactive) 04/26/25 14:28 Hep Bs Antigen Non-reactive (Nonreactive) 04/26/25 14:28 Hep Bs Antibody > 1000.0 (11.5-1000) H 04/26/25 14:28 Hep B Core Total Ab Reactive (Nonreactive) H 04/26/25 14:28 Hepatitis C Antibody Reactive (Nonreactive) H 04/26/25 14:28 HCV RNA (PCR) IUs/ml <1.18 not detected Log IU/mL (NOT DETECTED) 04/26/25 16:10 HCV RNA (PCR) IU log10 <15 not detected IU/mL (NOT DETECTED) 04/26/25 16:10 Human Metapneumovir PCR Not detected (NOT DETECT) 04/26/25 14:50 Influenza A (H1) PCR Not detected (NOT DETECT) 04/26/25 14:50 Influ A (H1/09) PCR Not detected (NOT DETECT) 04/26/25 14:50 Influenza A (H3) PCR Not detected (NOT DETECT) 04/26/25 14:50 Influenza Type A (PCR) Not detected (NOT DETECT) 04/26/25 14:50 Influenza Type B (PCR) Not detected (NOT DETECT) 04/26/25 14:50 M. pneumoniae (PCR) Not detected (NOT DETECT) 04/26/25 14:50 Parainfluenza 1 (PCR) Not detected (NOT DETECT) 04/26/25 14:50 Parainfluenza 2 (PCR) Not detected (NOT DETECT) 04/26/25 14:50 Parainfluenza 3 (PCR) Not detected (NOT DETECT) 04/26/25 14:50 Parainfluenza 4 (PCR) Not detected (NOT DETECT) 04/26/25 14:50 RSV Type A (PCR) Not detected (NOT DETECT) 04/26/25 14:50 RSV Type B (PCR) Not detected (NOT DETECT) 04/26/25 14:50 Entero/Rhino (PCR) Not detected (NOT DETECT) 04/26/25 14:50 SARS-CoV-2 (PCR) Not detected (NOT DETECT) 04/26/25 14:50 Procedures Performed Stress Test Vitals Last Vital Signs Temp 97.9 F 05/03/25 08:00 Pulse 82 05/03/25 14:28 Resp 28 H 05/03/25 11:56 BP 102/79 05/03/25 11:56 Pulse Ox 93 05/03/25 11:56 O2 Del Method Nasal Cannula 05/03/25 11:18 O2 Flow Rate 2 05/03/25 11:18 Discharge Plan Discharge Patient Disposition: Home Health Service Condition: Stable Prescriptions: New digoxin 125 mcg (0.125 mg) Tablet 125 mcg PO DAILY@1200 Qty: 90 0RF midodrine 5 mg Tablet 15 mg PO TID Qty: 90 0RF Continued atorvastatin 40 mg tablet 40 mg PO DAILY Qty: 90 1RF citalopram 20 mg tablet 20 mg PO DAILY Qty: 90 1RF budesonide 0.5 mg/2 mL Suspension For Nebulization 0.5 mg inhalation BID.RESPIRATORY Qty: 60 0RF metoprolol tartrate 25 mg Tablet 12.5 mg PO BID@0900,2100 30 Days Qty: 30 0RF ipratropium bromide 0.02 % Solution 0.5 mg inhalation Q8H Qty: 150 0RF pantoprazole 40 mg Tablet,Delayed Release (Dr/Ec) 40 mg PO DAILY Qty: 30 0RF prednisone 10 mg tablet See Taper PO DIRECTED Qty: 42 0RF Taper: predniSONE 60-10 60 mg Daily for 2 Days and 0 Hour 50 mg Daily for 2 Days and 0 Hour 40 mg Daily for 2 Days and 0 Hour 30 mg Daily for 2 Days and 0 Hour 20 mg Daily for 2 Days and 0 Hour 10 mg Daily for 2 Days and 0 Hour Rx Instructions: see taper instructions Eliquis 5 mg tablet 5 mg PO BID ferrous sulfate [FeroSul] 325 mg (65 mg iron) tablet 325 mg PO DAILY tamsulosin 0.4 mg capsule 0.4 mg PO DAILY aspirin 81 mg capsule 81 mg PO DAILY Qty: 30 2RF Changed furosemide [Lasix] 20 mg tablet 40 mg PO QAM PRN (Reason: weight gain) Qty: 20 0RF Rx Instructions: Rhythm at rebound Discontinued midodrine 5 mg Tablet 5 mg PO TID 30 Days Qty: 90 0RF levofloxacin 750 mg Tablet 750 mg PO DAILY@0600 Qty: 3 0RF Discharge Order = DC NOW: Discharge Order (Routine); Ordered 05/03/25 Ordered By: Tarah Hoyt Referrals: [facility] [Outside] Jim Bowling MD [Physician, Cardiology] - 06/04/25 9:00 am Hermelindo Cartwright FNP [Referring] - 05/07/25 10:30 am Discharge Diet: As Directed Discharge Activity: Resume usual activity Patient Instructions: Aspiration, Digoxin (By mouth), Midodrine (By mouth), Fluid Restriction (DC), CHF Stoplight, Opioid Safety, Pneumonia Stoplight, Patient Portal & Krystin Instructions Activity Restrictions/Additional Instructions: Please continue aspiration precautions and Level 5 diet - minced and moist diet. Follow up with primary provider for reassessment. Seek medical attention for any worsening or new concerning symptoms. Monitior home blood pressures and heart rates 2-3 x daily. Discharge Attestations Time Spent in Discharge Care*: greater than 30 min Specific Discharge Activities: educating patient, discussing with pcp/other providers, documenting/other paperwork and evaluating patient/reviewing data Time Spent in Smoking Cessation: 3 to 10 minutes Status at Discharge: Cognitive status at discharge: cognitively intact, Behavioral status at discharge: cooperative, Quality Metrics Clinical Quality Measures [ No reported AMI, CVA or VTE this stay] Coding Level of Care Code 88217 Diagnoses ICD (implantable cardioverter-defibrillator) in place Z95.810 PAF (paroxysmal atrial fibrillation) I48.0 Ventricular arrhythmia I49.9 Acute on chronic heart failure with reduced ejection fraction (HFrEF, <= 40%) and combined systolic and diastolic dysfunction I50.43 CAD (coronary artery disease) I25.10 Associated angina: with unspecified form of angina Essential hypertension I10 Hypertension type: essential hypertension Chronic obstructive pulmonary disease, unspecified COPD type J44.9 COPD type: unspecified COPD Time Spent (min) 70
[2025-05-04 18:09] LABS: RMSF IGG NOT DETECTED; RMSF IGM NOT DETECTED
== END 2025-05-03 15:56 | disposition home health service (06) | DRG 291 ==
LOC: ER 13:26 → ER IP 18:36 → CSU 20:17
PROVIDERS: Internal Medicine; Nurse Practitioner Family; Student in an Organized Health Care Education/Training Program; Admitting Provider Student in an Organized Health Care Education/Training Program; Emergency Provider Family Medicine; PCP Nurse Practitioner Family; Visit Provider Clinical Nurse Specialist Acute Care
DX: I11.0 Hypertensive heart disease with heart failure (principal); I50.43 Acute on chronic combined systolic (congestive) and diastolic (congestive) heart failure; J96.21 Acute and chronic respiratory failure with hypoxia; J18.9 Pneumonia, unspecified organism; R04.2 Hemoptysis; J44.0 Chronic obstructive pulmonary disease with (acute) lower respiratory infection; I25.10 Atherosclerotic heart disease of native coronary artery without angina pectoris; Z95.1 Presence of aortocoronary bypass graft; Z95.810 Presence of automatic (implantable) cardiac defibrillator; Z79.01 Long term (current) use of anticoagulants; E78.5 Hyperlipidemia, unspecified; K21.9 Gastro-esophageal reflux disease without esophagitis; Z90.49 Acquired absence of other specified parts of digestive tract; F17.210 Nicotine dependence, cigarettes, uncomplicated; Z79.82 Long term (current) use of aspirin; R74.01 Elevation of levels of liver transaminase levels; I95.9 Hypotension, unspecified; Z79.51 Long term (current) use of inhaled steroids; I48.0 Paroxysmal atrial fibrillation; D69.6 Thrombocytopenia, unspecified; Z99.81 Dependence on supplemental oxygen; K76.0 Fatty (change of) liver, not elsewhere classified; B19.20 Unspecified viral hepatitis C without hepatic coma
CPT/HCPCS: 36415; 36600; 51798; 71045; 71250; 76604; 76705; 78452; 80053; 80162; 80503; 82533; 82803; 83605; 83735; 83880; 84100; 84132; 84443; 84484; 85007; 85025; 85027; 86618; 86666; 86705; 86706; 86709; 86757; 86803; 87070; 87340; 87486; 87522; 87581; 87633; 92507; 92526; 92610; 93005; 93017; 93308; 94640; 96372; 96374; 96375; 97110; 97116; 97161; 97165; 97530; 97535; 99285; A9500; G0378; J0834; J1160; J1650; J1885; J1938; J2470; J2543; J2785; J3475; J3480; J7512; J7614; J7626; J7644; J9999; P9046

== ENCOUNTER 2025-05-04 05:56 | Inpatient (IN) | payer MEDICARE, MEDICAID, SELFPAY ==
--- OUTSIDE RECORDS SUMMARY | 2024-08-03 08:38 | XMS_ITS | Encounter Summary ---
Author Organization [facility] Address [address] [place] [address] Care Team Providers Care Test Borer Name Role Phone Willie Byrne MD Primary Care Provider [phone] Reason for Visit * Auth/Cert (Routine) Specialty Diagnoses / Procedures Referred By Contac t Referred To Contact Perioperative Diagnoses Atherosclerosis of [place] artery of both lower extremities with intermittent claudication Atherosclerosis of [place] artery of right lower extremity with intermittent claudication Procedures CHG ANGIOGRAPHY EXTREMITY UNILATERAL RS&I ID SLCTV CATHJ 3RD+ ORD SLCTV ABDL PEL/LXTR BRNCH CHG AORTOGRAPHY ABDOMINAL SERIALOGRAPHY RS&I ID REVASCULARIZATION ILIAC ARTERY ANGIOP 1ST VSL ID REVSC OPN/PRQ ILIAC ART W/STNT PLMT & ANGIOPLSTY ID REVSC OPN/PRQ FEM/POP W/ATHRC/ANGIOP SM VSL ID REVSC OPN/PRQ FEM/POP W/STNT/ATHRC/ANGIOP SM VSL ID REVSC OPN/PRQ TIB/ABNER W/ATHRC/ANGIOP SM VSL ID REVSC OPN/PRQ TIB/ABNER W/STNT/ATHR/ANGIOP SM VSL FEMORAL ANGIOGRAPHY WITH INTERVENTION RIGHT Ronal Vicente MD [address] [place] [address] Phone: tel: fax: [facility] Operating Room [address] [place] [address] Phone: tel: fax: Referral ID Status Reason Start Date Expiration Date Visits Re quested Visits Authorized [id number] 1 1 Encounter Details Date Type Department Care Team (Latest Contact Info) Description 08/03/2024 8:38 AM SILK FINISHER Hospital Encounter [facility] Operating Room [address] [place] [address] Ronal Vicente MD [address] [place] [address] Peripheral vascular disease, unspecified Social History Tobacco Use Types Packs/Day Years Used Date Smoking Tobacco: Former Cigarettes Passive Smoke Exposure: Never Smokeless Tobacco: Never Alcohol Use Standard Drinks/Week Comments Not Currently 0 (1 standard drink = 0.6 oz pur e alcohol) Feeling Safe Answer Date Recorded Are you in a relationship wi th someone who hurts you emotionally and/or physically? 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 His EKG was abnormal and he was referred to the ED. On arrival he reported that he had been short of breath for the last few weeks and that he had abnormalities on hisEKG that morning. He denied any chest discomfort or ill contacts. He stated that he had a chronic, mild cough from time to time but had no other complaints. Cardiology was consulted and he underwent NM stress test which was widely abnormal. He had already eaten that day and they planned for LHC thefollowing Saturday. He was admitted for close monitoring pending LHC. He underwent LHC on 07/27 which showed severe multivessel CAD including the LAD, diagonal, left circumflex, and RCA. CTS was consulted for CABG evaluation. CTS performed CABG evaluation and scheduled him for high risk CABG with Impella placement on 08/04. He underwent the procedure as scheduled this morning and is being admitted to the ICU for postoperative management. His PMH is remarkable for prediabetes, tobacco use, hypertension, hyperlipidemia, PAD, dyspnea, abnormal stress test, anemia, and symptomatic bradycardia Pertinent PMHx: Past Medical History: Diagnosis Date Hyperlipidemia Hypertension Current Care Plan Summary: Multivessel CAD s/p high risk CABG x 3 and LAAL with Impella placement via CTS on 08/04. Coronary Angiogram: Right dominant coronary anatomy Lt Main : Normal caliber vessel that appears normal angiographically. LAD : Normal caliber vessel with severe 80% stenosis in the midsegment. It gives rise to 1 main diagonal branch with 60 to 70% in-stent restenosis proximally. LCx : Normal caliber vessel with 50% stenosis proximally. It gives rise to 2 main OM branches. First OM has severe 80% stenosis proximally. RCA : Normal caliber vessel that is severely diseased with severe 99% stenosis in the proximal segment and subtotal occlusion of mid PDA with ЮЛИЯ I flow in the distal PDA with good pomx-bz-lyhwt collaterals. Hemodynamics - LVEDP was 9 mmHg. No significant LV-AO gradient noted on pull back Vasopressor/inotropic support: Tubes/Drains: L pleural and MS Chest tubes remain in place Chest tube status: Unclamped and draining with -20 suction Pre-Op TTE: EF 25%, diffuse hypokinesis with regional variation and apical akinesis. Intra-op VENUS: EF 25%, mild MR, Impella 5.5 in good position, severe inferior hypokinesis and apicalakinesis, absent MASON, uneventful CPB separation, visualized portions of the aorta intact without dissection. Plan: 73-year-old male with personal history of hypertension hyperlipidemia peripheral arterial disease presented to PCP with increasing symptoms of shortness of breath was transferred to the ER where he was evaluated by cardiology underwent a stress test followed by a left heart cath showed multivessel severe coronary artery disease at baseline LVEF was 25%. S/p CABG x 3 with left atrial appendage clip with Impella 5.5 support S/p Impella 5.5 explantation on 08/06/24 A-fib RVR- received IV amio bolus this AM, continue PO amio Replace K, Mg Status post thoracentesis pleural fluid, cultures negative based on hematocrit it is a hemothorax Hbg/platelets stable Renal function preserved, initiate gentle diuresis ASA, statin Heparin SubQ BB as per CTS ICU timeline: 08/04: CABG x 3 with LAAL, ICU admission, MV, 0.08 epi, 0.05 vaso, Impella P7, high UOP, CXR, postoplabs stable, SBT's for extubation 08/05: Receiving 3u PRBC, impella at P4, 08/06: Impella removed 08/07: Amio bolus, replace arterial line, started on heparin 08/08: Amio bolus, gentle diuresis Major active problem list: Active Problems: * No active hospital problems. * Subjective: 24 hour events - see above Objective: Current vital signs There were no vitals taken for this visit. 24 hour BP and temperature range BP: -- No data recorded. Input/Output No intake/output data recorded. PHYSICAL EXAM: Gen:Sitting up in chair Neuro: Awake and alert, hard of hearing HEENT: NC/AT Cardiac: RRR Pulm: diminished bilaterally Abdomen: soft, non tender Skin: warm,dry, intact Extremities: peripheral pulses intact, trace edema Data Review: BMP: Recent Labs 08/15/24 1131 GLUCOSE 119* BUN 9 CREAT 0.80 NA 135* K 4.7 CL 103 CO2 23 ANIONGAP 9 estimated creatinine clearance is 65.2 mL/min (by C-G formula based on SCr of 0.8 mg/dL). LFTs: Recent Labs 08/15/24 1131 ALKPHOS 220* ALT 40 AST 39 BILITOTAL 0.7 ALBUMIN 3.3* CBC: Recent Labs 08/15/24 1131 WBC 17.5* HGB 9.9* HCT 31.7* PLT 222 MCV 94.1 Coagulation: No results for input(s): PT , INR , APTT in the last 72 hours. ABG: Lab Results Component Value Date/Time SPECIMENSOU Venous Mixed 08/08/2024 04:36 AM PHBLOODPOC 7.43 08/06/2024 12:17 PM [id number] 32 (L) 08/06/2024 12:17 PM PO2POC 76 (L) 08/06/2024 12:17 PM [id number] 21 (L) 08/06/2024 12:17 PM [id number] 43 08/08/2024 04:36 AM [id number] 22 (L) 08/06/2024 12:17 PM BEPOC -3 (L) 08/06/2024 12:17 PM LACTATE 1.9 08/15/2024 12:26 PM PATIENTTEMP 37.0 08/04/2024 02:50 PM PHTEMPCORR 7.43 08/06/2024 12:17 PM [id number] 32 (L) 08/06/2024 12:17 PM [id number] 76 (L) 08/06/2024 12:17 PM Lactic acid: Lab Results Component Value Date/Time LACTATE 1.9 08/15/2024 12:26 PM LACTATE 1.5 08/06/2024 12:17 PM LACTATE 2.3 (H) 08/04/2024 04:09 PM LACTATE 2.7 (H) 08/04/2024 02:50 PM Radiology: Relevant results and imaging have been reviewed. Assessment/Plan: Neuro/Psych: Awake and alert Multimodal pain regimen with acetaminophen, robaxin, gabapentin, and oxy Cardiovascular/Fluids: Multi-vessel CAD s/p CABG x 3 and LAAL with CTS. Remains on vasopressin, s/p impella 5.5-- removed 08/06. Leave surgical dressing overlying the left upper chest intact, to be assessed and replaced by the surgical team only. Statin, ASA, plavix, BB Repeat TTE 08/06 with severely reduced systolic fx, EF 30% with diffuse hypokinesis Afib RVR, maintained on PO amiodarone, received IV bolus this morning Pulmonary: 1L NC R sided hemothorax s/p thoracentesis with 1300ml of sanguinous output, repeat CXR this morning stable Continue pulmonary hygiene, Aerobika, OOB to chair GI/NUT: CLD SUP, H2 Renal/LYTES/Acid-Base: Renal function appears intact, monitor urine output closely. Replace electrolytes Infectious Disease: Perioperative abx per CTS Hem/Onc/Coag: Acute blood loss anemia, stable hgb overnight. S/p R thoracentesis with sanguinous output. Chest tubes remain in place L pleural and MS. Thrombocytopenia, follow trend DVTp, SCDs, heparin Endocrine: History of DM, transitioned to SSI and lantus Musculoskeletal/Skin: Surgical incisions managed per CTS Routine skin care per bedside nursing. Family communication: Updated EM3 FINISHER documented in this encounter Plan of Treatment Not on file documented as of this encounter Visit Diagnoses Not on filedocumented in this encounter Care Teams Test Borer Relationship Specialty Start Date End Date Willie Byrne MD [address] [place] [id number] PCP - General Family Practice 02/18/23 03/07/25 documented as of this encounter
[2025-05-04] VITALS (134 sets, daily range): BP systolic 87–116; BP diastolic 60–88; PULSE 73–135; RESP 13–42; TEMP 36.3–37; O2SAT 72–99; BMI 22.8
--- NOTE | 2025-05-04 05:57 | XRR_ITS ---
PROCEDURE INFORMATION: Exam: XR Chest Exam date and time: 05/04/2025 6:08 AM Age: 74 years old Clinical indication: Pain; Other: SOB; Additional info: Dyspnea/cough TECHNIQUE: Imaging protocol: Radiologic exam of the chest. Views: 1 view. COMPARISON: CT chest wo con [id number] 04/27/2025 2:49 PM FINDINGS: Tubes, catheters and devices: AICD projects in satisfactory location. Lungs: Increased hazy airspace disease in the left mid and upper lung zones and right mid lung zone. Improved aeration at the lung bases bilaterally. Pleural spaces: Small left pleural effusion. Heart/Mediastinum: Unremarkable. No cardiomegaly. Bones/joints: Sternotomy. XR/XR chest 1V portable [id number] IMPRESSION: 1. Increased hazy airspace disease in the left mid and upper lung zones and right mid lung zone. Possible atypical pneumonia. 2. Improved aeration at the lung bases bilaterally. 3. Small left pleural effusion.
--- NOTE | 2025-05-04 05:58 | ED_ITS ---
HPI - General Adult 2 General: Chief complaint: Shortness of Breath/Dyspnea Stated complaint: sob Time Seen by Provider: 05/04/25 05:57 History of Present Illness: 74-year-old male presents emergency room with complaints of shortness of breath EMS reported he was at 70% on his usual 2 L by nasal cannula. Patient was recently hospitalized for acute on chronic respiratory failure with worsening congestive heart failure he has significant history of heart failure with ejection fraction of 40 to 45%. He also has a history of COPD and atrial fibrillation. He is on chronic anticoagulation. EMS had given him a nebulizer treatment and route after which she had a large single bloody hemoptysis. Has not had any repeat since then. He denies any chest or abdominal pain at this time. Patient received DuoNeb Zofran and 125 mg of Solu-Medrol and route Associated symptoms: Reports dyspnea; Deny chest pain or rash Related Data Home Medications ?Medication ?Instructions ?Recorded ?Confirmed apixaban 5 mg tablet (Eliquis) 5 mg PO BID 04/01/25 ferrous sulfate 325 mg (65 mg 325 mg PO DAILY 04/01/25 05/04/25 iron) tablet (FeroSul) tamsulosin 0.4 mg capsule 0.4 mg PO DAILY 04/01/2505/18 aspirin 81 mg tablet,delayed 81 mg PO DAILY 05/04/25 1 07/04/24 release Previous Rx's ?Medication ?Instructions ?Recorded atorvastatin 40 mg tablet 40 mg PO DAILY #90 tabs 02/23 03/15 citalopram 20 mg tablet 20 mg PO DAILY #90 tabs 02/23 03/15 budesonide 0.5 mg/2 mL suspension 0.5 mg (2 mL) inhala tion 04/08/25 for nebulization BID.RESPIRATORY #60 mL ipratropium bromide 0.02 % 0.5 mg (2.5 mL) inhalation Q8H 04/08/25 solution for inhalation #150 mL metoprolol tartrate 25 mg tablet 12.5 mg (1/2 x 25 mg) PO 04/08/25 BID@0900,2100 30 days #30 tabs pantoprazole 40 mg tablet,delayed 40 mg PO DAILY #30 t abs 04/08/25 release prednisone 10 mg tablet See Taper PO DIRECTED #42 tabs 04/08/25 furosemide 20 mg tablet (Lasix) 40 mg (2 x 20 mg) PO Q AM PRN 04/24/25 weight gain #20 tabs digoxin 125 mcg (0.125 mg) tablet 125 mcg PO DAILY@120 0 #90 tabs 05/03/25 midodrine 5 mg tablet 15 mg (3 x 5 mg) PO TID #90 tabs 05/03/25 Allergies Allergy/AdvReac Type Severity Reaction Status Date / Time adhesive Allergy Unknown Verified 04/23/25 13:03 Review of Systems 2 Const: Denies: fever(s) or chills Card: Denies: chest pain Resp: Reports: dyspnea, productive cough, wheezing, hemoptysis and chest congestion GI: Denies: abdominal pain : Denies: dysuria, urinary frequency or urinary urgency Musc: Denies: neck pain or back pain Skin/Breast: Denies: rash PFSH ED 2 PFSH: Medical History Acute on chronic hypoxic respiratory failure Heart failure Afib COPD (chronic obstructive pulmonary disease) GERD (gastroesophageal reflux disease) NISQUALLY (hard of hearing) CAD (coronary artery disease) Hx of myocardial infarction Hyperlipidemia Depression Hypertension Surgical History Hx of CABG Hx of appendectomy Hx of heart artery stent Family History Father No problems noted. Mother Cancer stomach Social History Smoking and tobacco/nicotine status: current every day tobacco/nicotine user cigarettes [ Other cigarette details: 2 to 3 packs a week] Alcohol intake: current Alcohol intake frequency: few times a month Physical Exam 2 Const: GENERAL APPEARANCE: cooperative ORIENTATION/CONSCIOUSNESS: Yes awake HENMT: COMMON NORMALS: normocephalic, atraumatic and hearing grossly normal bilaterally HEAD & SCALP: normocephalic and atraumatic Resp: COMMON NORMALS: normal respiratory effort, No retractions, No use of accessory muscles and clear to auscultation bilaterally AUSCULTATION: clear to auscultation bilaterally Cardio: COMMON NORMALS: regular rhythm and No murmurs present (Cardio) R ATE: tachycardic RHYTHM: regular rhythm GI: COMMON NORMALS: Soft to palpation and No hepatosplenomegaly present A USCULTATION: Yes normoactive bowel sounds PALPATION: Yes Soft to palpation, No Tenderness to palpation present (GI), No Guarding due to palpation present (GI) and Yes No hepatosplenomegaly present Extremity: COMMON NORMALS: normal to inspection, capillary refill normal, no clubbing, cyanosis or edema, no calf tenderness and no pedal edema Skin: COMMON NORMALS: no rashes or lesions noted GENERAL SKIN EXAM: no rashes or lesions noted Course 2 Vital Signs: Vital signs: Vital Signs Temperature 97.0 F L 05/10/25 04:00 Pulse Rate 91 05/10/25 06:00 Respiratory Rate 22 H 05/10/25 05:00 Blood Pressure 102/77 05/10/25 05:30 Pulse Oximetry 100 05/10/25 05:30 Oxygen Delivery Me thod Nasal Cannula 05/10/25 04:00 Oxygen Flow Rate 3 05/10/25 04:00 Fraction of Inspir ed Oxygen 40 05/08/25 14:00 [facility] - General Adult Medical Decision Making Patient discharged day prior with congestive heart failure. Returns now with reports of worsening symptoms appears to have increased vascular congestion now appears to have bilateral upper lobe pneumonia and right middle lobe pneumonia. CTA of the chest done no PE significantly worsening edema and pneumonia. Bilateral pleural effusions. Discussed with hospitalist will admit. Gave IV fluids but did not give sepsis bolus as patient is in heart failure this would drastically worsen his condition. He has transaminitis as well as acute on chronic respiratory failure. Antibiotics initiated. Medical Records I reviewed the patient's medical records. Lab Data I reviewed the patient's lab results. 05/10/25 04:53 05/10/25 04:53 Radiology Impressions Chest CTA 05/04/25 07:12 IMPRESSION: 1. No pulmonary embolism. 2. Significant progression of pneumonia and edema and groundglass attenuation throughout both lungs since 04/27/2025. 3. Small bilateral pleural effusions. 4. Cardiomegaly. 5. Reactive mediastinal and hilar adenopathy. 6. Reidentified is a low density tubular lesion in the prevascular space which abuts the aortic arch. This may be related to prior surgeries. This has been present since the initial CT from 03/31/2025. Benign sterile postoperative collection. Mediastinal abscess would be difficult to exclude. There has been no progression since 03/31/2025. 7. Tricuspid regurgitation into the hepatic veins. Thoracentesis Ultrasound 05/07/25 09:42 IMPRESSION: Uncomplicated ultrasound-guided LEFT chest thoracentesis. Chest X-Ray 05/08/25 10:33 IMPRESSION: Mild bilateral interstitial opacity suggesting low-grade pulmonary edema, improved from 05/07/2025. Laboratory Results WBC 9.06 10^3/uL (3.29-11.43) 05/04/25 06:42 RBC 4.08 10^6/uL (3.85-5.65) 05/04/25 06:42 Hgb 12.10 g/dL (11.27-16.99) 05/04/25 06:42 Hct 39.0 % (37-53) 05/04/25 06:42 MCV 95.6 fl (82-101) 05/04/25 06:42 MCH 29.7 pg (27-33) 05/04/25 06:42 MCHC 31.0 g/dL (30-55) 05/04/25 06:42 RDW 18.6 % (12.1-15.1) H 05/04/25 06:42 Plt Count 212 10^3/cmm (157-399) 05/04/25 06:42 MPV 10.9 fL (7.4-10.4) H 05/04/25 06:42 Neut % (Auto) 87.3 % 05/04/25 06:42 Lymph % (Auto) 5.0 % 05/04/25 06:42 Dent % (Auto) 6.1 % 05/04/25 06:42 Eos % (Auto) 0.7 % 05/04/25 06:42 Baso % (Auto) 0.1 % 05/04/25 06:42 Neut # (Auto) 7.92 10^3/uL (1.8-7.7) H 05/04/25 06:42 Lymph # (Auto) 0.5 10^3/uL (0.8-4.8) L 05/04/25 06:42 Dent # (Auto) 0.6 10^3/uL (0.2-0.9) 05/04/25 06:42 Eos # (Auto) 0.1 10^3/uL (0.0-0.8) 05/04/25 06:42 Baso # (Auto) 0.0 10^3/uL (0.0-0.1) 05/04/25 06:42 Nucleated RBC % (auto) 0 % 05/04/25 06:42 Nucleated RBCs # 0.0 /100WBC 05/04/25 06:42 Specimen Type Arterial 05/04/25 06:20 Sample Site Brachial, left 05/04/25 06:20 ABG pH 7.45 (7.35-7.45) 05/04/25 06:20 ABG pCO2 44.3 mmHg (35-45) 05/04/25 06:20 ABG pO2 74.0 mmHg (80.0-100.0) L 05/04/25 06:20 ABG PO2/FiO2 Ratio 148 05/04/25 06:20 ABG HCO3 31.1 mmol/L (22-26) H 05/04/25 06:20 ABG O2 Saturation 95.7 05/04/25 06:20 ABG Base Excess 6.3 mmol/L (-2.0-2.0) H 05/04/25 06:20 Hesham Test Pos 05/04/25 06:20 A-a O2 Gradient 29.8 mmHg (5-10) H 05/04/25 06:20 Hematocrit 38.9 % (42-52) L 05/04/25 06:20 Hgb O2 Saturation 93.4 % (95-100) L 05/04/25 06:20 Carboxyhemoglobin 1.7 %THgb (0.4-20.1) 05/04/25 06:20 Methemoglobin 0.7 % (0.4-1.5) 05/04/25 06:20 Total Hemoglobin 12.7 g/dL (14-18) L 05/04/25 06:20 Sodium 139.0 mmol/L (131-143) 05/04/25 06:20 Potassium 4.2 mmol/L (3.5-5.0) 05/04/25 06:20 Glucose 192.0 mg/dL (70-115) H 05/04/25 06:20 Ionized Calcium 1.2 mmol/L (1.1-1.4) 05/04/25 06:20 O2 Delivery Device Bipap 05/04/25 06:20 FiO2 50.0 % 05/04/25 06:20 Floor Molder ID Bd 05/04/25 06:20 Sodium 139 mmol/L (136-145) 05/04/25 06:37 Potassium 4.8 mmol/L (3.5-5.1) 05/04/25 06:37 Chloride 98 mmol/L (98-107) 05/04/25 06:37 Carbon Dioxide 30 mmol/L (22-29) H 05/04/25 06:37 Anion Gap 15.8 (5-19) 05/04/25 06:37 BUN 21 mg/dL (8-23) 05/04/25 06:37 Creatinine 0.7 mg/dL (0.7-1.2) 05/04/25 06:37 GFR Calculation Not Reportable 05/04/25 06:37 Glucose 189 mg/dL (65-115) H 05/04/25 06:37 Calculated Osmolality 296 mOsm/kg (285-295) H 05/04/25 06:37 Lactic Acid 3.0 mmol/L (0.5-2.2) H 05/04/25 06:42 Calcium 9.2 mg/dL (8.5-10.5) 05/04/25 06:37 Total Bilirubin 1.3 mg/dL (0.15-1.2) H 05/04/25 06:37 AST 25 U/L (0-40) 05/04/25 06:37 ALT 44 U/L (0-41) H 05/04/25 06:37 Alkaline Phosphatase 178 U/L (40-130) H 05/04/25 06:37 Troponin T Baseline 84 ng/L (0-15) H 05/04/25 06:37 Total Protein 5.7 g/dL (6.6-8.7) L 05/04/25 06:37 Albumin 3.6 g/dL (3.5-5.2) 05/04/25 06:37 Globulin 2.1 g/dL (1.3-4.6) 05/04/25 06:37 Procalcitonin 0.11 ng/mL (0-0.5) 05/04/25 06:37 Digoxin 0.8 ng/mL (0.6-1.2) 05/04/25 06:42 Influenza A (PCR) Negative (Negative) 05/04/25 07:33 Influenza Type B (PCR) Negative (Negative) 05/04/25 07:33 Pneumocystis Source Sputum 05/04/25 07:33 Pneumocyst jirovecii PCR Not detected (Not Detected) 05/04/25 07:33 RSV (PCR) Negative (Negative) 05/04/25 07:33 SARS-CoV-2 (PCR) Negative (Negative) 05/04/25 07:33 Beta-(1,3)-D-Glucan <31 pg/mL (<60) 05/04/25 06:37 B-(1,3)-D-Glucan Intrp Negative (Negative) 05/04/25 06:37 All radiology interpretation(s) finalized by discharge ED provider radiology interpretation(s): increased vascular markings particularly in the l upper lobes left greater than right appears to be bilateral upper lobe pneumonia is EKG Data EKG 1: I personally reviewed and interpreted this EKG as follows: Interpretation: EKG sinus tachycardia rate of 116. [place] 140 QTc [address]. No acute ST elevation. No acute changes from EKG 04/23/2025 Computer generated interpretation: Chest CTA 05/04/25 07:12 IMPRESSION: 1. No pulmonary embolism. 2. Significant progression of pneumonia and edema and groundglass attenuation throughout both lungs since 04/27/2025. 3. Small bilateral pleural effusions. 4. Cardiomegaly. 5. Reactive mediastinal and hilar adenopathy. 6. Reidentified is a low density tubular lesion in the prevascular space which abuts the aortic arch. This may be related to prior surgeries. This has been present since the initial CT from 03/31/2025. Benign sterile postoperative collection. Mediastinal abscess would be difficult to exclude. There has been no progression since 03/31/2025. 7. Tricuspid regurgitation into the hepatic veins. Thoracentesis Ultrasound 05/07/25 09:42 IMPRESSION: Uncomplicated ultrasound-guided LEFT chest thoracentesis. Chest X-Ray 05/08/25 10:33 IMPRESSION: Mild bilateral interstitial opacity suggesting low-grade pulmonary edema, improved from 05/07/2025. EKG 2: I personally reviewed and interpreted this EKG as follows: Interpretation: EKG 05/04/2025 10:50 AM sinus tachycardia with PVCs rate of 100 CT interval 131 QTc 478. Compared to EKG done earlier same day no acute changes. Computer generated interpretation: Chest CTA 05/04/25 07:12 IMPRESSION: 1. No pulmonary embolism. 2. Significant progression of pneumonia and edema and groundglass attenuation throughout both lungs since 04/27/2025. 3. Small bilateral pleural effusions. 4. Cardiomegaly. 5. Reactive mediastinal and hilar adenopathy. 6. Reidentified is a low density tubular lesion in the prevascular space which abuts the aortic arch. This may be related to prior surgeries. This has been present since the initial CT from 03/31/2025. Benign sterile postoperative collection. Mediastinal abscess would be difficult to exclude. There has been no progression since 03/31/2025. 7. Tricuspid regurgitation into the hepatic veins. Thoracentesis Ultrasound 05/07/25 09:42 IMPRESSION: Uncomplicated ultrasound-guided LEFT chest thoracentesis. Chest X-Ray 05/08/25 10:33 IMPRESSION: Mild bilateral interstitial opacity suggesting low-grade pulmonary edema, improved from 05/07/2025. Discharge Plan Discharge Patient Disposition: Admitted As Inpatient Admit Provider: Blas Danielson Clinical Impression: Acute on chronic heart failure with reduced ejection fraction (HFrEF, <= 40%) and combined systolic and diastolic dysfunction, Acute on chronic hypoxic respiratory failure, Transaminitis, Atherosclerosis of jackson coronary artery of jackson heart without angina pectoris Sepsis Qualifiers: Sepsis type: sepsis due to unspecified organism Sepsis acute organ dysfunction status: without acute organ dysfunction Qualified Code(s): A41.9 - Sepsis, unspecified organism Afib Qualifiers: Atrial fibrillation type: paroxysmal Qualified Code(s): I48.0 - Paroxysmal atrial fibrillation CAD (coronary artery disease) Qualifiers: Coronary Disease-Associated Artery/Lesion type: jackson artery Elim Ira vs. 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
--- OUTSIDE RECORDS SUMMARY | 2025-05-04 06:06 | XMS_ITS | Clinical Summary ---
Author Organization [facility] Address [address] 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
--- OUTSIDE RECORDS SUMMARY | 2025-05-04 06:06 | XMS_ITS | Clinical Summary ---
Author Organization [facility] Administrative Offices Address [address] [place] [address] Care Team Providers Care Plum Packer Name Role Phone Unavailable Primary Care Provider [...] combined systolic and diastolic CHF, [facility] [address] A class 2 02/03/2025 NYHA class 3 [...] PSA, less than 10 ng/ml 03/05/2024 Athscl [place] arteries of extrm w intrmt mark, bi legs 02/04/2023 Tobacco use 11/14/2022 Resolved Problems Problem Noted Date Diagnosed Date Resolved Date Acute respiratory insufficie ncy, postoperative 08/04/2024 08/11/2024 Acute coronary syndrome 07/24/202401/22 Abnormal stress test 07/24/2024 025 Encounters Date Type Department Care Team Description 04/16/[address] [phone] Kiya York, DIRECTOR IMMUNOLOGY 03/30/2025 External Device Data STL ABSTRACTION Provider, Abstract 03/10/2025 1:30 PM CDT Nurse Only [place] [address] [facility] [address] [place] [phone] Juarez Clements MD Sick sinus syndrome (CMS/HCC) (Primary Dx); Atrial fibrillation, unspecified type (CMS/HCC); Ischemic dilated cardiomyopathy (CMS/HCC); Automatic implantable cardioverter-defibril lator in situ 03/08/2025 Telephone [facility] [address] [phone] Willie Byrne MD Needs Appointment 03/05/2025 10:15 AM CDT Office Visit [facility] [address] [facility] [address] [place] [phone] Hung Lorenzo MD CAD in [place] artery (Primary Dx); S/P CABG (coronary artery bypass graft) 03/02/2025 External Device Data STL ABSTRACTION Provider, Abstract 03/02/2025 External Device Data STL ABSTRACTION Provider, Abstract 03/02/2025 External Device Data STL ABSTRACTION Provider, Abstract 03/01/2025 Refill [facility] [address] [phone] Raiza Nesbitt, YAMILA 03/01/2025 Telephone [facility] [address] [phone] Willie Byrne MD Ed Follow-up 02/27/2025 5:02 PM CDT - 02/27/2025 7:45 PM CDT Emergency [facility] Emergency Department [address] [place] [address] Naveen Morin MD Shortness of breath (Primary Dx); COPD with exacerbation ([facility]/HCC) Discharge Disposition: Home or Self Care 02/27/2025 Travel 02/24/2025 External Device Data STL ABSTRACTION Provider, Abstract 02/11/2025 1:45 PM CDT Anesthesia Event [facility] Cardiac Work And Family Life Consultant [facility] [place] [address] Yaniv Bojorquez II, 02/11/2025 12:00 PM CDT - 02/11/2025 1:09 PM CDT Surgery [facility] Cardiac Work And Family Life Consultant [facility] [place] [address] Juarez Clements MD ICD Insertion 02/11/2025 10:09 AM CDT - 02/11/2025 5:25 PM CDT Hospital Encounter [facility] Prep Recovery [address] [place] [address] Juarez Clements MD NYHA class 3 acute on chronic systolic heart failure (CMS/HCC) Discharge Disposition: Home or Self Care 02/09/2025 External Device Data STL ABSTRACTION Provider, Abstract 02/03/2025 11:00 AM CDT Office Visit [place] [address] [place] [phone] Juarez Clements MD Ischemic dilated cardiomyopathy (CMS/HCC) (Primary Dx); Essential hypertension; Mixed hyperlipidemia; PAF (paroxysmal atrial fibrillation) (CMS/HCC); S/P CABG x 3; Sinus bradycardia; Status post coronary artery bypass graft; Status post ligation of left atrial appendage; ASHD (arteriosclerotic heart disease); Chronic anticoagulation; Chronic combined systolic and diastolic CHF, NYHA class 2 (CMS/HCC) 02/03/2025 Telephone [place] [address] [facility] [address] [place] [phone] Hung Lorenzo MD Follow Up 02/03/2025 Prep for Surgery [place] [address] [place] [phone] Juarez Clements MD Ischemic dilated cardiomyopathy (CMS/HCC) (Primary Dx); NYHA class 3 acute on chronic systolic heart failure (CMS/HCC) 02/03/2025 Telephone [place] [address] [place] [phone] Juarez Clements MD Procedure 02/02/2025 Telephone [place] [address] [place] [phone] Catherine Paul NP Needs Form Or Letter Filled Out; Information (Will have Catherine DE LA PAZ sign/Zoll forms. 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 Cardiovascular Device N/A: Chest [employer] INC [id number] 05/24/2027 [id number] / / [id number] Clip Ligating Horizon Red 271970 - Csc - [id number] Implanted:Qty : 1 on 08/04/2024 by Jesus Manuel Newton MD at [facility] Clip N/A: Chest TELEFLEX INC [id number] 04/23/2029 [id number] / / [id number] Clip Ligating Horizon Red 841672 - Csc - [id number] Implanted:Qty : 1 on 08/04/2024 by Jesus Manuel Newton MD at [facility] Clip N/A: Chest TELEFLEX INC [id number] 04/23/2029 [id number] / / [id number] Clip Ligating Horizon Red 893603 - Csc - [id number] Implanted:Qty : 1 on 08/04/2024 by Jesus Manuel Newton MD at [facility] Clip N/A: Chest TELEFLEX INC [id number] 04/23/2029 [id number] / / [id number] Clip Ligating Horizon Lrg Ti 10.07x12.38mm 141613 - Csc - [id number] Implanted:Qty : 1 on 08/06/2024 by Jesus Manuel Newton MD at [facility] Clip N/A: Neck TELEFLEX- WECK CLOSURE SYS 08/25/2028 [id number] / / [id number] Clip Ligating Horizon Lrg Ti 10.07x12.38mm 745059 - Csc - [id number] Implanted:Qty : 1 on 08/06/2024 by Jesus Manuel Newton MD at [facility] Clip N/A: Neck TELEFLEX- WECK CLOSURE SYS 08/25/2028 [id number] / / [id number] Dev Closure Angioseal 6fr Vip 027577 - [id number] Implanted:Qty : 1 on 02/04/2023 at [facility] Closure Device Left: Groin [facility] 11/22/2023 [id number] / / [id number] Defib Icd Galien Xt Mri [id number] Df4 Dual Chmbr Surescan Rqmi2s2 - [id number] Implanted:Qty : 1 on 02/11/2025 by Juarez Clements MD at [facility] Defibrillator Left: Chest Wall MEDTRONIC- CARD RHYTHM MGMT [id number] 05/21/2026 [id number] / [id number] / Graft Vasc Hemashield Gold Knit 983409 - [id number] Implanted:Qty : 1 on 08/04/2024 by Jesus Manuel Newton MD at [facility] Graft N/A: Chest [employer] INC [id number] 05/23/2028 [id number] / [id number] / [id number] Orthostat 2.0gm Os-201 - [id number] Implanted:Qty : 1 on 08/04/2024 by Jesus Manuel Newton MD at [facility] Hemostatic N/A: Chest ORTHOCON, INC [id number] 03/23/2027 OS- Orthostat 2.0gm Os-201 - [id number] Implanted:Qty : 1 on 08/04/2024 by Jesus Manuel Newton MD at [facility] Hemostatic N/A: Chest ORTHOCON, INC [id number] 03/23/2027 OS- Lead Pacing Capsure Fix Novus 52cm [id number] - [facility] - [id number] Implanted:Qty : 1 on 02/11/2025 by Juarez Clements MD at [facility] Lead Left: Chest Wall MEDTRONIC- CRM - BULK BUY [id number] 11/06/2026 [id number] / [id number] / Lead Sprint Quattro Secure 62cm [id number] - [facility] - [id number] Implanted:Qty : 1 on 02/11/2025 by Juarez Clements MD at [facility] Lead Left: Chest Wall MEDTR[employer]- CRM - BULK BUY [id number] 12/03/2026 [id number] / [id number] 15V / Adh Bioglue 10ml Co1070-2-Jf - [id number] Implanted:Qty : 1 on 08/04/2024 by Jesus Manuel Newton MD at [facility] Sealant N/A: Chest ARTIVION (FKA CRYOLIFE) [id number] 09/20/2025 [id number]- 5-US / / [id number] Stent Lifestent 5fr [id number] 135cm [id number] - [id number] Implanted:Qty : 1 on 02/04/2023 at [facility] Stent Right: Leg BARD CAROLYNN VASC 02/02/2025 [id number] / / [id number] Plt Bone H Concave 6h Nst Lf Implanted:Qty : 1 on 08/04/2024 by Jesus Manuel Newton MD at [facility] N/A: Chest MIREYA BIOMET 115.602 .06 / / Plt Bone H Concave 6h Nst Lf Implanted:Qty : 1 on 08/04/2024 by Jesus Manuel Newton MD at [facility] N/A: Chest MIREYA BIOMET 115.602 .06 / / Sternalock Ez 16 Mm Screw Implanted:Qty : 1 on 08/04/2024 by Jesus Manuel Newton MD at [facility] N/A: Chest ZIMMERB IOMET-1 00.035. 16 / / Sternalock Ez 16 Mm Screw Implanted:Qty : 1 on 08/04/2024 by Jesus Manuel Newton MD at [facility] N/A: Chest ZIMMERB IOMET-1 00.035. 16 / / Sternalock Ez 16 Mm Screw Implanted:Qty : 1 on 08/04/2024 by Jesus Manuel Newton MD at [facility] N/A: Chest ZIMMERB IOMET-1 00.035. 16 / / Sternalock Ez 16 Mm Screw Implanted:Qty : 1 on 08/04/2024 by Jesus Manuel Newton MD at [facility] N/A: Chest ZIMMERB IOMET-1 00.035. 16 / / Sternalock Ez 16 Mm Screw Implanted:Qty : 1 on 08/04/2024 by Jesus Manuel Newton MD at [facility] N/A: Chest ZIMMERB IOMET-1 00.035. 16 / / Sternalock Ez 16 Mm Screw Implanted:Qty : 1 on 08/04/2024 by Jesus Manuel Newton MD at [facility] N/A: Chest ZIMMERB IOMET-1 00.035. 16 / / Sternalock Ez 16 Mm Screw Implanted:Qty : 1 on 08/04/2024 by Jesus Manuel Newton MD at [facility] N/A: Chest ZIMMERB IOMET-1 00.035. 16 / / Sternalock Ez 16 Mm Screw Implanted:Qty : 1 on 08/04/2024 by Jesus Manuel Newton MD at [facility] N/A: Chest ZIMMERB IOMET-1 00.035. 16 / / Sternalock Ez 16 Mm Screw Implanted:Qty : 1 on 08/04/2024 by Jesus Manuel Newton MD at [facility] N/A: Chest ZIMMERB IOMET-1 00.035. 16 / / Sternalock Ez 16 Mm Screw Implanted:Qty : 1 on 08/04/2024 by Jesus Manuel Newton MD at [facility] N/A: Chest ZIMMERB IOMET-1 00.035. 16 / / Sternalock Ez 16 Mm Screw Implanted:Qty : 1 on 08/04/2024 by Jesus Manuel Newton MD at [facility] N/A: Chest ZIMMERB IOMET-1 00.035. 16 / / Screw Bone 18mm Lck Nst Lf Implanted:Qty : 1 on 08/04/2024 by Jesus Manuel Newton MD at [facility] N/A: Chest MIREYA BIOMET 100.035 .18 / / Screw Bone 18mm Lck Nst Lf Implanted:Qty : 1 on 08/04/2024 by Jesus Manuel Newton MD at [facility] N/A: Chest MIREYA BIOMET 100.035 .18 / / Screw Bone 18mm Lck Nst Lf Implanted:Qty : 1 on 08/04/2024 by Jesus Manuel Newton MD at [facility] N/A: Chest MIREYA BIOMET 100.035 .18 / / Screw Bone 18mm Lck Nst Lf Implanted:Qty : 1 on 08/04/2024 by Jesus Manuel Newton MD at [facility] N/A: Chest MIREYA BIOMET 100.035 .18 / / Screw Bone 18mm Lck Nst Lf Implanted:Qty : 1 on 08/04/2024 by Jesus Manuel Newton MD at [facility] N/A: Chest MIREYA BIOMET 100.035 .18 / / Screw Bone 18mm Lck Nst Lf Implanted:Qty : 1 on 08/04/2024 by Jesus Manuel Newton MD at [facility] N/A: Chest MIREYA BIOMET 100.035 .18 / / Screw Bone 16mm Lck Nst Lf Implanted:Qty : 1 on 08/04/2024 by Jesus Manuel Newton MD at [facility] N/A: Chest MIREYA BIOMET 100.035 .16 / / Procedures Procedure Name Priority Date/Time Associated Diagnosis Comments SC PROGRAM EVAL IMPLANT DEVICE,CARDVERT/DEF IB,2 LEAD WITHIN [...] WITH DIFFERENTIAL Routine 02/11/2025 10:57 AM CDT SC ECG ROUTINE ECG W/LEAST 12 LDS W/I&R Routine 02/03/2025 11:02 AM CDT Sinus bradycardia CAD in [place] artery S/P CABG (coronary artery bypass graft) Referral of patient OCCULT BLOOD IMMUNOASSAY, COLORECTAL SCREEN Routine 11/13/2022 12:00 AM CDT Encounter for colorectal cancer screening from Last 3 Months or Most Recently Relevant to Health Maintenance Results * SC PROGRAM EVAL IMPLANT DEVICE,CARDVERT/DEFIB,2 LEAD WITHIN GLOBAL (03/10/2025 2:03 PM CDT) Narrative [facility] - 03/10/2025 2:03 PM CDT Elva [...] care, arm restrictions and recommended follow up. [facility] remote f/u reviewed. Enrolled in [employer]. Patient verbalized understanding of all instructions. F/U [...] up. [facility] remote f/u reviewed. Enrolled in [employer].Patient verbalized understanding of all instructions. F/U with EP officein 3 months. See attached report for details. us Juarez Clements MD CARDIAC SERVICES REY RADER Final Result [facility] [address] [place] [address] * (ABNORMAL) TROPONIN 2 HR, 5TH GEN (02/27/2025 5:22 PM CDT) TROPONIN T, 2 HR 5TH GEN 74(H) <=15 ng/L 02/27/2025 6:23 PM CDT [facility] DELTA 2HR TROPONIN T -5 See Interp. 02/27/2025 6:23 PM CDT [facility] Blood Venipuncture / Unknown 02/27/2025 5:22 PM CDT 02/27/2025 5:53 PM CDT Narrative [facility] - 02/27/2025 6:23 PM CDT Troponin elevated. Delta indeterminate. Delay in collection of timed specimen beyond recommended collection interval. Results must be interpreted in clinical context. us Shilpa Vaz APRN CHEMISTRY ORDERABLES Lady burns Result [facility] CLIA # [id number] [address] [place] [address] * (ABNORMAL) BRAIN NATRIURETIC PEPTIDE, BNP OR PROBNP (02/27/2025 5:22 PM CDT) PROBNP, N TERMINAL 6,837(H) 0 - 125 pg/mL 02/27/2025 6:33 PM CDT [facility] Comment: INTERPRETIVE COMMENT based on diagnosis: [...] Morin MD CHEMISTRY ORDERABLES Final Re sult [facility] [employer] [facility] CLIA # [id number] [address] [address] [place] [address] * XR CHEST PA OR AP 1 [...] evidence of an acute infiltrate. Shilpa Vaz MACHINE II ENGRAVER DIAGNOSTIC IMAGING ORDERA BLES Final Result * (ABNORMAL) TROPONIN BASELINE, 5TH GEN (02/27/2025 2:57 PM CDT) TROPONIN T, BASELINE 5TH GEN 79(H) <=15 ng/L 02/27/2025 3:33 PM CDT [facility] [employer] [facility] Blood Venipuncture / Unknown 02/27/2025 2:57 PM CDT 02/27/2025 3:03 PM CDT Narrative [facility] - 02/27/2025 3:33 PM CDT Troponin elevated. Shilpa Vaz APRN CHEMISTRY ORDERABLES Lady grant Result [facility] CLIA # [id number] [address] [place] [address] * (ABNORMAL) CBC WITH DIFFERENTIAL (02/27/2025 2:57 PM CDT) Only the most recent of2 resultswithin the time period is included. [facility] WBC 7.1 4.8 - 10.8 K/uL 02/27/2025 3:06 PM CDT [facility] RBC 4.51(L) 4.60 - 6.20 M/uL 02/27/2025 3:06 PM CDT [facility] HEMOGLOBIN 12.6(L) 14.0 - 18.0 g/dL 02/27/2025 3:06 PM CDT [facility] HEMATOCRIT 39.7(L) 41.0 - 53.0 % 02/27/2025 3:06 PM [facility] MCV 88.0 84.0 - 103.0 fL 02/27/2025 3:06 PM CDT [facility] MCH 27.9 27.0 - 34.0 pg 02/27/2025 3:06 PM CDT [facility] MCHC 31.7 30.0 - 35.0 g/dL 02/27/2025 3:06 PM T [facility] PLATELETS 181 140 - 440 K/uL 02/27/2025 3:06 PM T [facility] MPV 10.6 8.9 - 12.8 fL 02/27/2025 3:06 PM [facility] RDW 15.6(H) 11.0 - 14.5 % 02/27/2025 3:06 PM T [facility] RDW-STDEV 49.0 37.0 - 54.0 fL 02/27/2025 3:06 PM CDT [facility] NEUTROPHILS 73 42 - 75 % 02/27/2025 3:06 PM CDT [facility] LYMPHOCYTES 16(L) 24 - 44 % 02/27/2025 3:06 PM CDT [facility] MONOCYTES 8 2 - 10 % 02/27/2025 3:06 PM CDT [facility] EOSINOPHILS 2 0 - 7 % 02/27/2025 3:06 PM CDT [facility] BASOPHILS 1 0 - 1 % 02/27/2025 3:06 PM CDT [facility] IMMATURE GRANULOCYTES 0 0 - 2 % 02/27/2025 3:06 PM CDT [facility] NEUTROPHIL ABSOLUTE 5.18 2.00 - 8.00 K/uL 02/27/2025 3:06 PM CDT [facility] LYMPHOCYTE ABSOLUTE 1.11(L) 1.20 - 4.00 K/uL 02/27/2025 3:06 PM CDT [facility] MONOCYTE ABSOLUTE 0.57 0.10 - 0.60 K/uL 02/27/2025 3:06 PM CDT [facility] EOSINOPHIL ABSOLUTE 0.13 0.00 - 0.70 K/uL 02/27/2025 3:06 PM CDT [facility] BASOPHILS ABSOLUTE 0.04 0.00 - 0.20 K/uL 02/27/2025 3:06 PM CDT [facility] IMMATURE GRANULOCYTES ABSOLUTE 0.03 0.00 - 0.10 K/uL 02/27/2025 3:06 PM T [facility] SMEAR REVIEWED: NA - Not Applicable 02/27/2025 3:06 PM T [facility] Blood Venipuncture / Unknown 02/27/2025 2:57 PM CDT 02/27/2025 3:03 PM CDT us Shilpa Vaz MACHINE II ENGRAVER HEMATOLOGY ORDERABLES Fin al Result [facility] CLIA # [id number] [address] [address] * MAGNESIUM LEVEL (02/27/2025 2:57 PM CDT) Pathologist [facility] MAGNESIUM 2.3 1.6 - 2.4 mg/dL 02/27/2025 3:43 PM CDT [facility] Blood Venipuncture / Unknown 02/27/2025 2:57 PM CDT 02/27/2025 3:03 PM CDT Shilpa Vaz APRN CHEMISTRY ORDERABLES Lady burns Result Performing Organization Address City/State/[facility] Co de Phone Number [facility] CLIA # [id number] [address] [address] * (ABNORMAL) COMPREHENSIVE METABOLIC PANEL (02/27/2025 2:57 PM CDT) [facility] SODIUM 138 136 - 145 mmol/L 02/27/2025 3:43 PM CDT [facility] POTASSIUM 4.6 3.5 - 5.1 mmol/L 02/27/2025 3:43 PM CDT [facility] CHLORIDE 102 98 - 107 mmol/L 02/27/2025 3:43 PM CDT [facility] CO2 25 22 - 29 mmol/L 02/27/2025 3:43 PM CDT [facility] CALCIUM 9.4 8.8 - 10.2 mg/dL 02/27/2025 3:43 PM CDT [facility] BUN 14 8 - 23 mg/dL 02/27/2025 3:43 PM CDT [facility] CREATININE 0.85 0.67 - 1.17 mg/dL 02/27/2025 3:43 PM CDT [facility] Comment:The GFR result is no t clinically significant on patients <18 or >70 years of age. GLUCOSE 93 74 - 99 mg/dL 02/27/2025 3:43 PM CDT [facility] TOTAL PROTEIN 6.7 6.4 - 8.3 g/dL 02/27/2025 3:43 PM CDT [facility] ALBUMIN 3.8 3.5 - 5.2 g/dL 02/27/2025 3:43 PM CDT [facility] BILIRUBIN TOTAL 0.9 0.0 - 1.0 mg/dL 02/27/2025 3:43 PM CDT [facility] ALKALINE PHOSPHATASE 146(H) 40 - 129 U/L 02/27/2025 3:43 PM CDT [facility] AST 27 10 - 50 U/L 02/27/2025 3:43 PM CDT [facility] ALT 19 <=50 U/L 02/27/2025 3:43 PM CDT [facility] GFR >60 mL/min/1.7 3 sq meter 02/27/2025 3:43 PM CDT [facility] Comment:eGFR calculated with 2020 CKD-EPI equation. Vegetarian diet, extremely high or low muscle mass, and may affect results. Cystatin C with Glomerular Filtration Rate is a suitable alternative for these patients. ANION GAP 11 9 - 20 mmol/L 02/27/2025 3:43 PM CDT [facility] Blood Venipuncture / Unknown 02/27/2025 2:57 PM CDT 02/27/2025 3:03 PM CDT Shilpa Vaz MACHINE II ENGRAVER CHEMISTRY ORDERABLES Lady l Result [facility] CLIA # [id number] [address] [place] [address] [place] [address] * EKG 12-LEAD (02/27/2025 2:44 PM CDT) Only the most recent of3 resultswithin the time period is included. 02/27/2025 2:44 PM CDT Narrative INTERFACE SYSTEM - 02/28/2025 1:12 PM CDT [address] [address] Test Date: 2025-02-27 Pat Name: SHILPA DAHL Department: 11 Room: Gender: Male Telegraph Dispatcher: [email or web address] : 1950 Requested By: Order Number: [id number] Reading MD: Joselnie Butts Measurements Intervals Eclectic Rate: 102 P: 74 SC: 172 QRS: 100 QRSD: 96 T: 240 QT: 372 QTc: 484 Interpretive Statements Sinus tachycardia Septal infarct, age undetermined Lateral infarct, age undetermined ST & T wave abnormality, consider inferior ischemia Abnormal ECG Electronically Signed On 02-28-2025 13:12:48 CDT by Joseline Butts Procedure Note Provider, Historical - 02/28/[address] [address] Test Date: 2025-02-27 Pat Name: SHILPA DAHL Department: 11 Room: Gender: Male Telegraph Dispatcher: [email or web address] : 1950 Requested By: Order Number: [id number] Reading : Joseline Butts Measurements Intervals Eclectic Rate: 102 P: 74 SC: 172 QRS: 100 QRSD: 96 T: 240 [...] W ANES (02/11/2025 2:32 PM CDT) Narrative [facility] - 02/11/2025 2:41 PM CDT Summary: 1. Successful Dual Chamber ICD Implant (MRI Compatible) Estimated Blood Loss There was minimal blood loss during procedure. Procedure Details [facility] Clinical Cardiac Electrophysiology Device Report Procedures: 1. Medtronic Dual Chamber ICD Implant 2. Contrast Venography 3. Left Subclavian Vein Access 4. Device Interrogation 5. Conscious Sedation (performed by Anesthesia) 6. Fluoroscopy with Interpretation Operators: 1. Juarez Clements MD, CATHERINE, FAC - Clinical Cardiac Electrophysiology Indication: 74 y/o [...] = < 30 cc. Device Model: Medtronic Galien XT DR [facility] [id number] ATRIAL Lead: EDSON [id number] Pacing Threshold: 0.5V @ 0.4ms Impedance: 551 ohms P wave: 2.0 mV RIGHT VENTRICULAR Lead: EDSON [id number]/[id number] Pacing Threshold: 0.5V @ 0.4ms Impedance: 570 ohms R wave: 9.5 mV Complications: None Summary: 1. Successful Dual Chamber ICD Implant (MRI Compatible) Juarez Clements MD, [facility], [facility] Clinical Cardiac Electrophysiology Foreign Language Teacher of Clinical Medicine [facility] Procedural Indications 74 y/o WM with h/o IDCM, CAD, NYHA Class III HF, PAF, SSS, and EF < 35% despite OMT > 3 months presents for a dual chamber ICD for primary prevention and sick sinus syndrome. us Juarez Clements MD CUP EP ORDERABLES Final Result [facility] CLIA [id number] [address] [facility] [address] [place] [id number], * PROTIME-INR (02/11/2025 10:57 AM CDT) PROTIME 13.9 12.7 - 14.9 Seconds 02/11/2025 11:13 AM CDT [facility] INR 1.0 0.8 - 1.2 02/11/2025 11:13 AM CDT [facility] Blood Venipuncture / Unknown 02/11/2025 10:57 AM CDT 02/11/2025 10:59 AM CDT Narrative [facility] - 02/11/2025 11:13 AM CDT Expected Values for INR: DVT/PE Goal INR 2.5; range 2.0 - 3.0 Valve Replacement Tissue Goal INR 2.5; range 2.0 - 3.0 Valve Replacement Mechanical Goal INR 3.0; range 2.5 - 3.5 POST-AL Goal INR 2.5; range 2.0 - 3.0 or Goal INR 3.0; range 2.5 - 3.5 Atrial Fibrillation Goal INR 2.5; range 2.0 - 3.0 Ischemic Stroke Goal INR 2.5; range 2.0 - 3.0 Juarez Clements MD HEMATOLOGY ORDERABLES F inal Result [facility] CLIA # [id number] [address] [facility] [place] [address] * BASIC METABOLIC PANEL (02/11/2025 10:57 AM CDT) SODIUM 140 136 - 145 mmol/L 02/11/2025 11:34 AM [facility] POTASSIUM 4.5 3.5 - 5.1 mmol/L 02/11/2025 11:34 AM [facility] CHLORIDE 104 98 - 107 mmol/L 02/11/2025 11:34 AM [facility] CO2 27 22 - 29 mmol/L 02/11/2025 11:34 AM [facility] CALCIUM 9.2 8.8 - 10.2 mg/dL 02/11/2025 11:34 AM [facility] BUN 19 8 - 23 mg/dL 02/11/2025 11:34 AM [facility] CREATININE 0.89 0.67 - 1.17 mg/dL 02/11/2025 11:34 AM [facility] Comment:The GFR result is no t clinically significant on patients <18 or >70 years of age. GLUCOSE 99 74 - 99 mg/dL 02/11/2025 11:34 AM [facility] GFR >60 mL/min/1.7 3 sq meter 02/11/2025 11:34 AM [facility] Comment:eGFR calculated with 2020 CKD-EPI equation. Vegetarian diet, extremely high or low muscle mass, and may affect results. Cystatin C with Glomerular Filtration Rate is a suitable alternative for these patients. ANION GAP 9 9 - 20 mmol/L 02/11/2025 11:34 AM [facility] Blood Venipuncture / Unknown 02/11/2025 10:57 AM CDT 02/11/2025 10:59 AM T Juarez Clements MD CHEMISTRY ORDERABLES Fi nal Result [facility] CLIA # [id number] [facility] [address] * OCCULT BLOOD IMMUNOASSAY, COLORECTAL SCREEN (11/13/2022 12:00 AM CDT) FECAL GLOBIN SEE NOTE [facility] [place] Comment: FECAL GLOBIN BY IMMUNOCHEMISTRY Micro Number: [id number] Test Status: Final Specimen Source: Stool Specimen Quality: Adequate Fecal Globin: Not Detected Test Performed at[facility] [address] [address] [phone] Hussein Sherwood MD Stool STOOL SPECIMEN / Unknown 11/13/2022 11/26/2022 12:19 PM CDT Kiya York DIRECTOR IMMUNOLOGY BODY FLUIDS AND STOOLS Final Result [facility] [address] [phone] [facility] [address] [address] [phone] from Last 3 Months or Most Recently Relevant to Health Maintenance Insurance MEDICAID [place] [facility] Advance Directives For more information, please contact: [phone] * Full Code (Latest Code Status on [...]
--- OUTSIDE RECORDS SUMMARY | 2025-05-04 06:06 | XMS_ITS | Encounter Summary ---
Author [facility] Address [address] [place] [address] Care Team Providers Care Education And Development Manager Name Role Phone Unavailable Primary Care Provider Unavailluis e Encounter Details Date Type Department Care Team (Latest Contact Info) Description 04/26/2005 Outpatient Historical [facility] [address] 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
--- NOTE | 2025-05-04 06:24 | ECG_ITS ---
[facility] Date: 2025-05-04 Pat Name: Philippe Dahl Department: Room: Gender: Male Chief Crna: : 1950 Requested By: Wade Light Order Number: [id number] Dandy MD: Jim Bowling M.D. Measurements Intervals [place] Rate: 116 P: 78 ND: 140 QRS: 104 QRSD: 101 T: 180 QT: 325 QTc: 451 Interpretive Statements SINUS TACHYCARDIA WITH OCCASIONAL VENTRICULAR PREMATURE COMPLEXES RIGHT AXIS DEVIATION [QRS AXIS > 100] LOW QRS VOLTAGE IN EXTREMITY LEADS [QRS DEFLECTION < 0.5 mV IN LIMB LEADS] ANTEROSEPTAL MYOCARDIAL INFARCTION , OF INDETERMINATE AGE [40+ ms Q WAVE IN V1-V4] INTRAVENTRICULAR CONDUCTION DELAY Compared to ECG 04/23/2025 14:55:02 Ventricular premature complex(es) now present Electronically Signed On 05-05-2025 20:28:32 SAND CASTER APPRENTICE by Jim Bowling M.D. [email or web address] [id number]
[2025-05-04 06:32] LABS: ABG PCO2 44.3 mmHg (35-45); ABG PH Result 7.45 (7.35-7.45); Alveolar-Arterial Oxygen Gradi 29.8 mmHg (5-10); Arterial Blood Gas Hematocrit 38.9 % (42-52); Blood Gas Allen Test Pos; Blood Gas Operator Identificat BD; Blood Gas Sample Site Brachial, left; Blood Gas Sample Type Arterial; Carboxyhemoglobin 1.7 %THgb (0.4-20.1); Glucose Level-ABG 192.0 mg/dL (70-115); HCO3 ABG 31.1 mmol/L (22-26); Ionized Calcium Level - ABG 1.2 mmol/L (1.1-1.4); Methemoglobin 0.7 % (0.4-1.5); Oxygen Saturation ABG 95.7; PO2 ABG 74.0 mmHg (80.0-100.0); PO2 FiO2 Ratio Arterial Blood 148; Potassium Level - ABG 4.2 mmol/L (3.5-5.0); Sodium Level - ABG 139.0 mmol/L (131-143)
[2025-05-04 06:51] LABS: Hematocrit 39.0 % (37-53); Hemoglobin 12.10 g/dL (11.27-16.99); Mean Corpuscular HGB Conc 31.0 g/dL (30-55); Mean Corpuscular Hemoglobin 29.7 pg (27-33); Mean Corpuscular Volume 95.6 fl (82-101); Nucleated Red Blood Cells % 0 %; Platelet Count 212 10^3/cmm (157-399); Red Blood Count 4.08 10^6/uL (3.85-5.65); White Blood Count 9.06 10^3/uL (3.29-11.43)
[2025-05-04 07:07] LABS: Lactic Sepsis W/Reflex 3.0 mmol/L (0.5-2.2)
[2025-05-04 07:08] LABS: Alanine Aminotransferase 44 U/L (0-41); Albumin Level 3.6 g/dL (3.5-5.2); Alkaline Phosphatase 178 U/L (40-130); Anion Gap 15.8 (5-19); Aspartate Amino Transferase 25 U/L (0-40); Blood Urea Nitrogen 21 mg/dL (8-23); Calcium 9.2 mg/dL (8.5-10.5); Carbon Dioxide 30 mmol/L (22-29); Chloride 98 mmol/L (98-107); Globulin 2.1 g/dL (1.3-4.6); Glucose 189 mg/dL (65-115); Osmolality Calculated 296 mOsm/kg (285-295); Potassium 4.8 mmol/L (3.5-5.1); Sodium 139 mmol/L (136-145); Total Protein 5.7 g/dL (6.6-8.7); Troponin(5th) Baseline 84 ng/L (0-15)
--- NOTE | 2025-05-04 07:12 | CT_ITS ---
WS: [id number] CT CHEST ANGIOGRAPHY WITH REFORMATS HISTORY: Hemoptysis hypoxia tachycardia TECHNIQUE: Contiguous axial images are obtained through the chest during arterial injection of intravenous contrast. Images are reconstructed to evaluate the pulmonary arteries. MIP imaging also reviewed. All CT scans at [facility] use at least one of these dose optimization techniques: automated exposure control; mA and/or kV adjustment per patient size (includes targeted exams where dose is matched to clinical indication); or iterative reconstruction. CONTRAST: Omnipaque 350; 100 mL IV. DLP: 365.57 mGy.cm COMPARISON: 04/27/2025 Good opacification of the pulmonary arteries. No central pulmonary embolism. RIGHT and LEFT pulmonary arteries are slightly dilated. Evaluation of the distal pulmonary arteries, beyond the segmental branches, is difficult due to adjacent airspace disease. No RIGHT heart strain. Moderate enlargement of the heart. Tricuspid regurgitation into the hepatic veins. No pericardial effusion. Small layering bilateral pleural effusions similar to the prior study of 04/27/2025. Emphysematous changes are present. Significant progression of airspace disease and areas of consolidation and reticulation since 04/27/2025. Consistent with a combination of pneumonia and edema. Bilateral mediastinal and hilar reactive adenopathy which is similar to the prior study of 04/27/2025. Reidentified is the tubular low-density lesion in the prevascular space which has been noted on prior studies. This may be related to prior CABG. There is tract does appear to abut the aortic arch. Diffuse soft tissue anasarca. Mild thickening of the LEFT adrenal gland. Large hiatal hernia. CT/CT angio chest PE protcl [id number] IMPRESSION: 1. No pulmonary embolism. 2. Significant progression of pneumonia and edema and groundglass attenuation throughout both lungs since 04/27/2025. 3. Small bilateral pleural effusions. 4. Cardiomegaly. 5. Reactive mediastinal and hilar adenopathy. 6. Reidentified is a low density tubular lesion in the prevascular space which abuts the aortic arch. This may be related to prior surgeries. This has been p resent since the initial CT from 03/31/2025. Benign sterile postoperative collec tion. Mediastinal abscess would be difficult to exclude. There has been no prog ression since 03/31/2025. 7. Tricuspid regurgitation into the hepatic veins.
[2025-05-04] MEDS: piperacillin-tazobactam 3.375 GM in sodium chloride 0.9% (plus) 50 ML IV ×3 (07:34→22:36)
--- NOTE | 2025-05-04 07:38 | PC.NURSE ---
THIS NURSE ASSUMED CARE @ 2397.
[2025-05-04 07:40] LABS: Digoxin 0.8 ng/mL (0.6-1.2)
--- NOTE | 2025-05-04 08:11 | ECG_ITS ---
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 Measurements Intervals [place] Rate: 105 P: 102 [place]: 161 QRS: 111 QRSD: 106 T: 134 QT: 357 QTc: 472 Interpretive Statements SINUS TACHYCARDIA WITH OCCASIONAL VENTRICULAR PREMATURE COMPLEXES POSSIBLE LEFT ATRIAL ENLARGEMENT [-0.1mV P-WAVE IN V1/V2] LOW QRS VOLTAGE IN EXTREMITY LEADS [QRS DEFLECTION < 0.5 mV IN LIMB LEADS] ANTEROLATERAL MYOCARDIAL INFARCTION , OF INDETERMINATE AGE [40+ ms Q WAVE IN I/aVL/V3-V6] INTRAVENTRICULAR CONDUCTION DELAY Compared to ECG 05/04/2025 06:24:59 Myocardial infarct finding still present Electronically Signed On 05-09-2025 17:58:19 ADMINISTRATIVE ASSISTANT OFFICE MANAGER by Jim Bowling M.D. [email or web address] [id number]
--- NOTE | 2025-05-04 08:21 | P.HP_ITS ---
Providers/Chief Complaint 2 Chief Complaint: sob History of Present Illness History taken at bedside with granddaughter and to patient. Philippe Dahl is a 74 year old male with past medical history of chronic systolic heart failure with EF of 40%, CAD post CABG, ischemic cardiomyopathy, AICD in place atrial fibrillation, COPD, hard of hearing who was discharged on 05/03 when he was treated for shortness of breath in setting of congestive heart failure, pneumonia, hypotension, concerns for nonsustained and sustained V. tach for which he underwent ACS workup and was found to have extensive scarring in the distribution of 3 coronaries with possible subtle areas of carolynn-infarct ischemia. Patient was brought in today morning with respiratory failure via EMS. EMS found him to be having saturation in 70s on 3 L. He required multiple rounds of nebulization to help his oxygen status. On route he did have multiple episodes of expectoration with some being bloody. Currently he is having thick expectoration reddish brown in color. He was placed on BiPAP in the ER. Heart rate of 120 bpm with a systolic blood pressure of 110 saturating 93% currently on heated high flow 60 L 50%. Review of Systems 2 General: Reports: 10 or more systems reviewed and unremarkable except in HPI and below Const: Denies: fever(s), chills, body aches, change in appetite, change in weight, malaise, night sweats, diaphoresis, change in sleep pattern, daytime sleepiness or snoring Eyes: Denies: change in vision, blurry vision, photophobia, eye discomfort or eye discharge ENMT: Denies: throat pain, enlarged tonsils, hoarseness, mouth pain, oral sores, dry mouth, tinnitus, nasal congestion or post nasal drip Card: Denies: chest pain, palpitations, irregular heart rhythm, edema, swelling of feet/ankles, lightheadedness, syncope, pre-syncope, dyspnea on exertion, orthopnea, leg pain with exertion or acrocyanosis Resp: Denies: dyspnea, productive cough, non-productive cough, wheezing, stridor, pain on inspiration, change in phlegm color, hemoptysis or chest congestion GI: Denies: abdominal pain, nausea, vomiting, hematemesis, coffee ground emesis, dysphagia, heartburn, diarrhea, constipation, bloating, GI cramping, change in bowel habits, pain on defecation, hematochezia or melena : Denies: flank pain, difficulty urinating, dysuria, urinary frequency, urinary urgency, urinary hesitancy, urinary dribbling, difficulty starting urination, change in urine stream, nocturia or hematuria Musc: Denies: neck pain, back pain, extremity pain, joint pain, joint swelling, joint redness, joint stiffness or limited range of motion Neuro: Denies: headache(s), numbness in extremities, weakness in extremities, sensory changes, lack of coordination, difficulty walking, frequent falls, dizziness, vertigo, confusion, Slurred speech present, difficulty communicating thoughts or seizure-like activity Psych: Denies: anxiety, depression, mood swings, panic attacks, hopelessness or irritability Endo: Denies: polyuria, polydipsia, tired all the time, cold intolerance, excessive sweating, flushing or heat intolerance Jaleel/Lymph: Denies: easy bruising or easy bleeding All/Imm: Denies: tongue swelling, facial swelling or acute wheezing Medications/Allergies Home Medications ?Medication ?Instructions ?Recorded ?Confirmed ?Last Taken ?Type atorvastatin 40 mg tablet 40 mg PO DAILY #90 tabs 02/2305/04/25 05/03/25 Rx citalopram 20 mg tablet 20 mg PO DAILY #90 tabs 02/2305/04/25 05/03/25 Rx apixaban 5 mg tablet (Eliquis) 5 mg PO BID 04/01/2505/03/25 History ferrous sulfate 325 mg (65 mg 325 mg PO DAILY 04/01/25 05/04/25 05/03/25 History iron) tablet (FeroSul) tamsulosin 0.4 mg capsule 0.4 mg PO DAILY 04/01/2505/1805/03/25 History budesonide 0.5 mg/2 mL suspension 0.5 mg (2 mL) inhala tion 04/08/25 05/04/25 05/03/25 Rx for nebulization BID.RESPIRATORY #60 mL ipratropium bromide 0.02 % 0.5 mg (2.5 mL) inhalation Q8H 04/08/25 05/04/25 05/03/25 Rx solution for inhalation #150 mL metoprolol tartrate 25 mg tablet 12.5 mg (1/2 x 25 mg) PO 04/08/25 05/04/25 05/03/25 Rx BID@0900,2100 30 days #30 tabs pantoprazole 40 mg tablet,delayed 40 mg PO DAILY #30 t abs 04/08/25 05/04/25 05/03/25 Rx release prednisone 10 mg tablet See Taper PO DIRECTED #42 tabs 04/08/25 05/04/25 05/03/25 Rx furosemide 20 mg tablet (Lasix) 40 mg (2 x 20 mg) PO Q AM PRN 04/24/25 05/04/25 05/03/25 Rx weight gain #20 tabs digoxin 125 mcg (0.125 mg) tablet 125 mcg PO DAILY@120 0 #90 tabs 05/03/25 05/04/25 05/03/25 Rx midodrine 5 mg tablet 15 mg (3 x 5 mg) PO TID #90 tabs 05/03/25 05/04/25 05/03/25 Rx aspirin 81 mg tablet,delayed 81 mg PO DAILY 05/04/25 1 07/04/24 05/03/25 History release Allergies Allergy/AdvReac Type Severity Reaction Status Date / Time adhesive Allergy Unknown Verified 04/23/25 13:03 PFSH Acute 2 PFSH: Medical History (Updated 05/04/25 @ 07:44 by Wade Giang DO) Acute on chronic hypoxic respiratory failure Heart failure Afib COPD (chronic obstructive pulmonary disease) GERD (gastroesophageal reflux disease) [place] (hard of hearing) CAD (coronary artery disease) Hx of myocardial infarction Hyperlipidemia Depression Hypertension Surgical History Hx of CABG Hx of appendectomy Hx of heart artery stent Family History Father No problems noted. Mother Cancer stomach Social History Smoking and tobacco/nicotine status: current every day tobacco/nicotine user cigarettes [ Other cigarette details: 2 to 3 packs a week] Alcohol intake: current Alcohol intake frequency: few times a month Vitals/I&O/Wt Last Vital Signs Temp 97.4 F L 05/04/25 05:56 Pulse 104 H 05/04/25 07:34 Resp 16 05/04/25 07:34 BP 102/71 05/04/25 07:34 Pulse Ox 99 05/04/25 07:34 O2 Del Method BiPAP 05/04/25 07:34 FiO2 60 05/04/25 06:22 05/03/25 05/04/25 05/04/25 22:59 06:59 14:59 Intake Total 50 / 50 Balance 50 / 50 Weight last 48 hrs Weight 72.03 kg Physical Exam 2 Narrative: General: No acute distress, AO x3, extremely hard of hearing HEENT: PERRLA, pupils bilaterally equal and reactive Chest: Bronchial breath sounds over lung espino, coarse crackles present in left middle and lower zone, right middle zone left more than right, posterior more than anterior CVS: S1-S2 irregularly irregular,, pansystolic murmur at apex rating to anterior axillary line, S3 gallop, tachycardia, no gallops, no rubs Abdomen: Soft, nontender, no organomegaly, bowel sounds present Neuro: No focal deficits, no facial deformity, AO x3, power 5/5 in all limbs Data 05/04/25 06:42 05/04/25 06:37 A&P Assessment and plan 1. Acute on chronic hypoxic respiratory failure: Most likely in setting of acute on chronic systolic congestive heart failure along with pneumonia and COPD exacerbation. Oxygen supplementation keeping saturation over 90%. For now we will switch over to heated high flow. 2. Pneumonia: Appreciate chest x-ray and CTA chest. Concerning for significant consolidation in bilateral upper and middle lobe. Concern for fluid overload as well. Cannot rule out aspiration pneumonia. N.p.o. for now. Speech evaluation. Check sputum culture, trend procalcitonin, urine bacterial antigen, blood culture, respiratory viral panel. For now start on treatment for hospital-acquired pneumonia with IV vancomycin and Zosyn. Check MRSA swab. Add azithromycin 500 mg daily for atypical coverage. Check PJP PCR, fingitel, fungal culture, LDH Aggressive pulmonary toilet with I-S and Acapella. Will start on chest vest for now. 3. Chronic obstructive pulmonary disease, unspecified COPD type: Nebulization with Solu-Medrol 125 mg stat followed by 40 mg Q6 hourly. Inhalation treatment with Pulmicort twice daily, ipratropium and Xopenex every 4 hour along with Mucomyst. 4. Acute on chronic heart failure with reduced ejection fraction (HFrEF, <= 40%) and combined systolic and diastolic dysfunction: Appreciate recent echocardiogram with a EF of 40%, moderately decreased LV function, akinesis of mid to distal anterior and apical region, moderate MR. Start Lasix 80 mg one-time followed by IV Lasix 40 mg twice daily. Strict input output charting, daily weights. Fluid restriction to less than 1500. Monitor renal functions. Mendoza catheter. 5. CAD (coronary artery disease): Appreciate recent stress test. Troponin cycled being done from ER. Continue with aspirin, statin, add low-dose beta-ketty. Monitor for chest pain. 6. Ventricular arrhythmia: On recent admission. Will request for ICD interrogation to rule out arrhythmia at home. If concern for arrhythmia will start on amiodarone drip. 7. ICD (implantable cardioverter-defibrillator) in place: 8. PAF (paroxysmal atrial fibrillation): As above. 9. Hypotension: Could be in setting of infectious source. Did have low cortisol on previous admission with borderline cosyntropin stimulation test. Currently on steroids for COPD exacerbation. Will look for response. Goal blood pressure less than 140/90 mmHg with mean over 65. Continue with midodrine 15 mg 3 times daily for now. Plan: CODE STATUS: Discussed in detail with the patient with granddaughter at bedside. Daughter will be DPOA. Patient does not want any extensive chest compression or mechanical ventilation but is okay with cardioversion if needed. NPO. Speech evaluation. Protonix OPD prophylaxis SCD for DVT prophylaxis given hemoptysis currently. If stable hemoglobin stable can start on full dose Lovenox. PDMP PDMP Reviewed: Not Reviewed Attestations 2 Medical Necessity Statement*: Admission for more than 2 midnights for management of acute on chronic hypoxic respiratory failure in setting of acute on chronic systolic congestive heart failure, bilateral pneumonia with concerns for aspiration, hypotension, paroxysmal A-fib with concerns for ventricular arrhythmia Critical Care Time: The high probability of a clinically significant, sudden or life threatening deterioration of the patient's [cardiac, pulmonary, renal] system(s) required my full and direct attention, intervention and personal management. The critical care time is as shown. This time is in addition to time spent performing any reported procedures but includes the following: [x] Data and vital sign review and interpretation [x] Patient assessment, examination and intervention [x] Documentation [x] Medication orders and management Critical Care Time (min): 70 Coding Level of Care Code Critical Care >/= 30 minutes Critical care time (in minutes): 70 The high probability of a clinically significant, sudden or life threatening deterioration, as referenced in this documentation, required my full and direct attention, intervention and personal management. The critical care time shown is in addition to time spent performing any reported separately billable procedures and includes the following: [x] Data and vital sign review and interpretation [x ] Patient assessment, examination and intervention [x] Medication orders and management [x] Patient/Family updates as able [x] Care Coordination and Documentation. Other Coding Information This patient has a high probability of clinically significant, sudden or life threatening deterioration of the patient's (neurological/pulmonary/cardiac/renal/ID/endocrine) systems required my full, direct attention, the highest level of physician preparedness for urgent intervention and personal management. I managed/supervised life or organ supporting interventions that required frequent physician assessment. I devoted my full attention in the ICU to the direct care of this patient for the period of time indicated above. Time I spent with family or surrogate(s) is included only if the patient was incapable of providing necessary information or participating in decision making. This time includes the following services provided: Telemetry review Nonmechanical ventilation Hemodynamic interpretation, assessment and management Review and interpretation of CXR Review and interpretation of lab values Review and interpretation of microbiologic data and culture results Review of medications and administration Review and interpretation of Nutrition requirements and management Discussion of management with other consultants and services Clinical update to family members Diagnoses Acute on chronic hypoxic respiratory failure J96.21 Pneumonia J18.9 Chronic obstructive pulmonary disease, unspecified COPD type J44.9 COPD type: unspecified COPD Acute on chronic heart failure with reduced ejection fraction (HFrEF, <= 40%) and combined systolic and diastolic dysfunction I50.43 CAD (coronary artery disease) I25.10 Ventricular arrhythmia I49.9 ICD (implantable cardioverter-defibrillator) in place Z95.810 PAF (paroxysmal atrial fibrillation) I48.0 Hypotension I95.9
[2025-05-04 08:28] LABS: Respiratory Syncytial Virus Ce NEGATIVE (Negative); SARS-CoV-2 PCR NEGATIVE (Negative)
--- NOTE | 2025-05-04 08:39 | PC.PHAR ---
Family states pt did not take his pm medications last night . Family states pt no longer takes Jardiance 10mg from 03/11/25
--- NOTE | 2025-05-04 08:50 | PC.NURSE ---
PATIENT'S MEDTRONIC PACEMAKER INTERROGATED.
[2025-05-04] MEDS: methylPREDNISolone sod succ 125 mg/2 mL INJ IVP (09:02)
[2025-05-04] MEDS: FUROsemide 10 mg/mL SDV 10mL 80 MG IVP (09:05)
[2025-05-04 09:25] LABS: Procalcitonin 0.11 ng/mL (0-0.5)
[2025-05-04] MEDS: iohexol 350 mg/mL 500 mL Btl (per mL) IV (09:48)
--- NOTE | 2025-05-04 10:42 | ECG_ITS ---
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 Measurements Intervals [place] Rate: 100 P: 87 DE: 131 QRS: 101 QRSD: 103 T: 122 QT: 370 QTc: 478 Interpretive Statements SINUS TACHYCARDIA WITH FREQUENT VENTRICULAR PREMATURE COMPLEXES WITH OCCASIONAL SUPRAVENTRICULAR PREMATURE COMPLEXES POSSIBLE LEFT ATRIAL ENLARGEMENT [-0.1mV P-WAVE IN V1/V2] RIGHT AXIS DEVIATION [QRS AXIS > 100] ANTEROSEPTAL MYOCARDIAL INFARCTION , OF INDETERMINATE AGE [40+ ms Q WAVE IN V1-V4] Possible old lateral infarction Compared to ECG 05/04/2025 08:50:56 premature atrial contractions are new Electronically Signed On 05-05-2025 20:27:09 PRESCHOOL PRINCIPAL by Jim Bowling M.D. [email or web address] [id number]
--- NOTE | 2025-05-04 10:46 | PHA.VACGOAL ---
Vancomycin Goal - Goal Vancomycin Goal:: 15-20 mg/L Vancomycin Indication:: Pneumonia - Therapy Current therapy:: Pip/Tazo Day of therpy:: Day []of [] . Actual body weight (kg): 158 lb 12.8 oz - Data Labs: WBC 9.06 10^3/uL (3.29-11.43) 05/04/25 06:42 RBC 4.08 10^6/uL (3.85-5.65) 05/04/25 06:42 Hgb 12.10 g/dL (11.27-16.99) 05/04/25 06:42 Hct 39.0 % (37-53) 05/04/25 06:42 MCV 95.6 fl (82-101) 05/04/25 06:42 MCH 29.7 pg (27-33) 05/04/25 06:42 MCHC 31.0 g/dL (30-55) 05/04/25 06:42 RDW 18.6 % (12.1-15.1) H 05/04/25 06:42 Sodium 139 mmol/L (136-145) 05/04/25 06:37 Potassium 4.8 mmol/L (3.5-5.1) 05/04/25 06:37 Chloride 98 mmol/L (98-107) 05/04/25 06:37 Carbon Dioxide 30 mmol/L (22-29) H 05/04/25 06:37 Anion Gap 15.8 (5-19) 05/04/25 06:37 BUN 21 mg/dL (8-23) 05/04/25 06:37 Creatinine 0.7 mg/dL (0.7-1.2) 05/04/25 06:37 GFR Calculation Not Reportable 05/04/25 06:37 Last dialysis session:: N/A Treatment plan:: new consult Regimen:: LOADING DOSE OF 1000 MG X 1 GIVEN IN ER. STARTING MAINTENANCE DOSE OF 1250 MG Q12H PER DOSING PROTOCOL. Follow up:: WILL CONTINUE TO MONITOR AND FOLLOW UP DAILY
[2025-05-04 10:59] LABS: Glucose Urine UA Negative (Normal); Nitrate Urine Negative (Negative)
[2025-05-04] MEDS: acetylcysteine (Mucomyst) 200 mg/mL SDV 4 mL 100 MG INHALATION ×4 (11:03→23:49)
[2025-05-04 11:05] LABS: Add Urine Microscopic? YES
[2025-05-04 11:11] LABS: Specific Gravity, Urine 1.038 (1.005-1.030)
--- NOTE | 2025-05-04 12:11 | ECG_ITS ---
[facility]: [facility]25[facility]-04 Pat Name: Philippe Dahl Department: Room: ICU11 Gender: Male Lead Simulation Modeling Engineer: : 1950 Requested By: Wade Light Order Number: [id number] Dandy MD: Jim Bowling M.D. Measurements Intervals [place] Rate: 96 P: 85 PA: 157 QRS: 109 QRSD: 102 T: 156 QT: 367 QTc: 465 Interpretive Statements SINUS RHYTHM WITH OCCASIONAL VENTRICULAR PREMATURE COMPLEXES POSSIBLE LEFT ATRIAL ENLARGEMENT [-0.1mV P-WAVE IN V1/V2] LOW QRS VOLTAGE IN EXTREMITY LEADS [QRS DEFLECTION < 0.5 mV IN LIMB LEADS] ANTEROLATERAL MYOCARDIAL INFARCTION , OF INDETERMINATE AGE [40+ ms Q WAVE IN I/aVL/V3-V6] Compared to ECG 05/04/2025 10:50:22 NO SIGNIFICANT CHANGE Electronically Signed On 05-09-2025 17:54:24 COFFEE TASTER by Jim Bowling M.D. [email or web address] [id number]
[2025-05-04 12:54] LABS: Troponin 5 6HR 104.5 ng/L (0-15); Troponin 5 6HR Delta 20.5 ng/L (0-12)
[2025-05-04 13:12] LABS: Lactic Acid level (Lactate) 2.4 mmol/L (0.5-2.2)
[2025-05-04] MEDS: methylPREDNISolone sod succ 40 mg/mL INJ IVP ×2 (13:18→20:46)
[2025-05-04 14:03] LABS: Reflex Lactate Order REFLEX LACTIC ORDERD
[2025-05-04 15:20] LABS: Coronavirus 229E,HKU1,NL63,OC4 Not Detected (NOT DETECT); Parainfluenza Virus Type 1 Not Detected (NOT DETECT); Parainfluenza Virus Type 2 Not Detected (NOT DETECT); Parainfluenza Virus Type 3 Not Detected (NOT DETECT); Parainfluenza Virus Type 4 Not Detected (NOT DETECT); SARS-COV-2 Not Detected (NOT DETECT)
--- NOTE | 2025-05-04 17:12 | PC.NURSE ---
REceived patient from ER staff at 1010. Patient is awake and alert. Oriented to person, place, time, and situation. Patient appears in slight respiratory distress, but much improved compared to initial arrival. Belongings include a shirt, pants, socks, Cell phone, and 2 hearing aids. BP: 111/83 HR: 114 RR: 25 Temp: 97.3 spo2: 97% on 60L/50% HHF
--- NOTE | 2025-05-04 17:15 | PC.NURSE ---
SHift SUmmary: Uneventful shift. Patient rested in bed throughout the day. Patient no longer appears to be in respiratory distress, but is still receiving large amounts of oxygen (60L/50% HHF). Total urine output: 1250mL
[2025-05-04] MEDS: FUROsemide 10 mg/mL SDV 4mL 40 MG IVP (20:45)
[2025-05-05] VITALS (151 sets, daily range): BP systolic 80–128; BP diastolic 53–92; PULSE 74–120; RESP 7–37; TEMP 36.1–37; O2SAT 85–100
[2025-05-05] MEDS: methylPREDNISolone sod succ 40 mg/mL INJ IVP ×4 (01:59→20:25)
[2025-05-05] MEDS: acetylcysteine (Mucomyst) 200 mg/mL SDV 4 mL 100 MG INHALATION ×6 (04:16→23:27)
[2025-05-05 05:27] LABS: Hematocrit 33.4 % (37-53); Hemoglobin 10.90 g/dL (11.27-16.99); Mean Corpuscular HGB Conc 32.6 g/dL (30-55); Mean Corpuscular Hemoglobin 30.1 pg (27-33); Mean Corpuscular Volume 92.3 fl (82-101); Nucleated Red Blood Cells % 0 %; Platelet Count 180 10^3/cmm (157-399); Red Blood Count 3.62 10^6/uL (3.85-5.65); White Blood Count 6.13 10^3/uL (3.29-11.43)
[2025-05-05 05:56] LABS: Procalcitonin 0.46 ng/mL (0-0.5)
[2025-05-05] MEDS: piperacillin-tazobactam 3.375 GM in sodium chloride 0.9% (plus) 50 ML IV ×3 (06:31→22:54)
[2025-05-05 06:33] LABS: Alanine Aminotransferase 32 U/L (0-41); Albumin Level 3.1 g/dL (3.5-5.2); Alkaline Phosphatase 134 U/L (40-130); Anion Gap 16.8 (5-19); Aspartate Amino Transferase 18 U/L (0-40); Blood Urea Nitrogen 25 mg/dL (8-23); Calcium 8.6 mg/dL (8.5-10.5); Carbon Dioxide 28 mmol/L (22-29); Chloride 96 mmol/L (98-107); Globulin 1.7 g/dL (1.3-4.6); Glucose 222 mg/dL (65-115); Magnesium 1.8 mg/dL (1.7-2.3); Osmolality Calculated 295 mOsm/kg (285-295); Potassium 3.8 mmol/L (3.5-5.1); Sodium 137 mmol/L (136-145); Total Protein 4.8 g/dL (6.6-8.7)
[2025-05-05] MEDS: albumin 25 G/100 ML BAG 60 G IV (09:25)
--- NOTE | 2025-05-05 10:07 | PC.NURSE ---
Radiology called for Thoracentesis, aspirin was given this morning, spoke with Dr. Danielson who gave orders for stat PT/INR, and to hold future blood thinners for the next 24 hrs. They will attempt thora 05/06.
[2025-05-05] MEDS: FUROsemide 10 mg/mL SDV 4mL 40 MG IVP ×2 (10:22→17:11)
[2025-05-05 10:55] LABS: INR 1.06 (0.8-1.2); Prothrombin Time 14.60 SECONDS (12.1-14.9)
--- NOTE | 2025-05-05 13:26 | P.PN_ITS ---
Subjective 2 Subjective: No acute events overnight. Patient states he is feeling better. Saturating well breath with Sergio [place] 60 L 48%. Denies any nausea, vomiting, headache. Appreciate hemodynamics and urine output. Vitals/I&O/Wt Last Vital Signs Temp 97 F L 05/05/25 13:00 Pulse 89 05/05/25 13:15 Resp 27 H 05/05/25 13:15 BP 89/58 05/05/25 13:15 Pulse Ox 93 05/05/25 13:15 O2 Del Method Heated High Flow 05/05/25 13:00 O2 Flow Rate 60 05/05/25 13:00 FiO2 50 05/05/25 13:00 05/04/25 05/05/25 05/05/25 22:59 06:59 14:59 Intake Total 300 / 600 50 / 650 640 / 640 Output Total 1450 / 1750 375 / 2125 200 / 200 Balance -1150 / -1150 -325 / -1475 440 / 440 Weight last 48 hrs Weight 78 kg Weight 75.5 kg Weight 72.03 kg Physical Exam 2 Narrative: General: No acute distress, AO x3, extremely hard of hearing HEENT: PERRLA, pupils bilaterally equal and reactive Chest: Bronchial breath sounds over lung espino, coarse crackles present in left middle and lower zone, right middle zone left more than right, posterior more than anterior CVS: S1-S2 irregularly irregular,, pansystolic murmur at apex rating to anterior axillary line, S3 gallop, tachycardia, no gallops, no rubs Abdomen: Soft, nontender, no organomegaly, bowel sounds present Neuro: No focal deficits, no facial deformity, AO x3, power 5/5 in all limbs Urinary Catheter Management: Mendoza: Cath Placed During This Visit: yes Reason for Continuing Indwelling Catheter: Accurate Measurement of Urinary Output in Critically Ill Patients Urinary Catheter Date of Insertion: 05/04/25 Urinary Catheter Time of Insertion: 11:56 Data 05/05/25 04:52 05/05/25 04:52 Micro: Microbiology 05/04/25 07:33 Gram Stain - Final Sputum - Expectorated Sputum Sputum Culture - Preliminary 05/04/25 09:50 Bacterial Antigens - Final Urine Kidney A&P Assessment and plan 1. Shock: BP soft in setting of possible combination of Adrenal insufficiency, Severe , and possible septic shock. Did have low cortisol on previous admission with low response to cosyntropin stimulation test. Currently on steroids for COPD exacerbation. Start on Fludrocortisone 0.1 mg daily. If dose not respond plan to start on levophed. Goal blood pressure less than 140/90 mmHg with mean over 65. Continue with midodrine 15 mg 3 times daily for now. 2. Acute on chronic hypoxic respiratory failure: Most likely in setting of acute on chronic systolic congestive heart failure along with pneumonia and COPD exacerbation. Does have bilateral pleural effusion as well. Plan for thoracentesis. Hold off on anticoagulation for now. Oxygen supplementation keeping saturation over 90%. Wean HHF accordingly. 3. Pneumonia: Appreciate chest x-ray and CTA chest. Concerning for significant consolidation in bilateral upper and middle lobe. Concern for fluid overload as well. Cannot rule out aspiration pneumonia. Diet advanced after speech evaluation. Follow-up sputum culture, appreciate trend procalcitonin, negative urine bacterial antigen, follow-up blood culture, negative respiratory viral panel. Continue treatment for hospital-acquired pneumonia with IV vancomycin and Zosyn. Negative MRSA swab. For now we will continue vancomycin 24 hours. Will monitor response and decide about further vancomycin. F/u PJP PCR, fingitel, fungal culture, LDH Aggressive pulmonary toilet with I-S and Acapella. C/w chest vest for now. 4. Chronic obstructive pulmonary disease, unspecified COPD type: Continue Solmedrol IV 40 mg Q6 hourly. Inhalation treatment with Pulmicort twice daily, ipratropium and Xopenex every 4 hour along with Mucomyst. 5. Acute on chronic heart failure with reduced ejection fraction (HFrEF, <= 40%) and combined systolic and diastolic dysfunction: Appreciate recent echocardiogram with a EF of 40%, moderately decreased LV function, akinesis of mid to distal anterior and apical region, moderate MR. Change lasix to 40 mg IV daily. Strict input output charting, daily weights. Fluid restriction to less than 1500. Monitor renal functions. Mendoza catheter. 6. Aortic stenosis, severe: Seen on echocardiogram from 04/28. 7. CAD (coronary artery disease): Appreciate recent stress test. Troponin cycled being done from ER. Continue with aspirin, statin, add low-dose beta-ketty. Monitor for chest pain. 8. Ventricular arrhythmia: On recent admission. Appreciate the ICD interrogation report. No concern for NSVT or VT 9. ICD (implantable cardioverter-defibrillator) in place: 10. PAF (paroxysmal atrial fibrillation): C/w home dose of metoprolol and digoxin. Stable Dig levels. Holding off on Eliquis for now given need for thoracentesis 11. Hypotension: Plan: CODE STATUS: Discussed in detail with the patient with granddaughter at bedside. Daughter will be DPOA. Patient does not want any extensive chest compression or mechanical ventilation but is okay with cardioversion if needed. Dysphagia level 5 diet Protonix for PUD prophylaxis SCD for DVT prophylaxis given hemoptysis currently. If stable hemoglobin stable can start on full dose Lovenox after thoracentesis. Out of bed to chair. PDMP PDMP Reviewed: Not Reviewed Attestations 2 Medical Necessity Statement*: Requested hospitalization for management of shock in setting of: Insufficiency, severe , severe infection, hypoxic respiratory failure in setting of bilateral pneumonia, pleural effusion, congestive heart failure Critical Care Time: The high probability of a clinically significant, sudden or life threatening deterioration of the patient's [Pulm, cardiac, renal] system(s) required my full and direct attention, intervention and personal management. The critical care time is as shown. This time is in addition to time spent performing any reported procedures but includes the following: [x] Data and vital sign review and interpretation [x] Patient assessment, examination and intervention [x] Documentation [x] Medication orders and management Critical Care Time (min): 70 Coding Level of Care Code Critical Care >/= 30 minutes Critical care time (in minutes): 70 The high probability of a clinically significant, sudden or life threatening deterioration, as referenced in this documentation, required my full and direct attention, intervention and personal management. The critical care time shown is in addition to time spent performing any reported separately billable procedures and includes the following: [x] Data and vital sign review and interpretation [x ] Patient assessment, examination and intervention [x] Medication orders and management [x] Patient/Family updates as able [x] Care Coordination and Documentation. Diagnoses Shock R57.9 Acute on chronic hypoxic respiratory failure J96.21 Pneumonia J18.9 Laterality: bilateral Lung location: lower lobe of lung Pneumonia type: due to unspecified organism Chronic obstructive pulmonary disease, unspecified COPD type J44.9 COPD type: unspecified COPD Acute on chronic heart failure with reduced ejection fraction (HFrEF, <= 40%) and combined systolic and diastolic dysfunction I50.43 Aortic stenosis, severe I35.0 CAD (coronary artery disease) I25.10 Associated angina: without angina Coronary Disease-Associated Artery/Lesion type: [place] artery [place] vs. transplanted heart: [place] heart Ventricular arrhythmia I49.9 ICD (implantable cardioverter-defibrillator) in place Z95.810 PAF (paroxysmal atrial fibrillation) I48.0 Hypotension I95.9
--- NOTE | 2025-05-05 13:39 | XR_ITS ---
WS: [id number] PORTABLE CHEST HISTORY: chf and post picc insertion COMPARISON: 05/04/2025 Interval insertion of a right-sided PICC line. PICC line terminates at the cavoatrial junction in good position. LEFT subclavian defibrillator and pacer. Extensive opacifications throughout both lungs probably combination of pneumonia and an congestion. Small bilateral pleural effusions. Cardiac size: Normal. Mediastinum/Aorta: Normal mediastinum. No osseous abnormality seen. XR/XR chest 1V portable [id number] IMPRESSION: Satisfactory position right-sided PICC line. Extensive consolidations. Combination of pneumonia and pulmonary congestion.
[2025-05-05] MEDS: norepinephrine 4 MG/250 ML BAG 7.5 MG IV (13:47)
--- NOTE | 2025-05-05 15:05 | PICC.NOTE ---
Triple lumen PICC placed to right basilic vein. Referred to vascular access nurse for PICC placement due to use of vasopressors. Risks and benefits discussed and informed consent obtained from pt. Right arm assessed with right basilic vein measuring 4.6 mm, straight, and apparent best choice for placement. Using sterile technique and MST, right basilic vein accessed x 1 stick. Mid-arm circumference measured 10 cm from right AC 24 cm. Trimmed cath 39 cm with 0 cm external length noted. CXR shows tip in cavoatrial junction, in good position for use per radiologist. Line secured with stat-lock. Insertion site covered with Biopatch and TSM. Report given to bedside nurse, MAXI Raymond.
--- NOTE | 2025-05-05 18:31 | PC.NURSE ---
Shift SUmmary: Uneventful shift. Rested in bed for most of the day, but did get up to a chair for a few hours. Minimal assistance with transferring. Rhonchi still present, but much improved compared to yesterday. Remains on HHF reduced from 60L/50% down to 50L/40% Started on low dose leophed (2mcg/min). Urine output improved after starting on levophed. total urine output: 1050
[2025-05-06] VITALS (90 sets, daily range): BP systolic 92–139; BP diastolic 67–117; PULSE 78–132; RESP 10–39; TEMP 36.6; O2SAT 80–100
[2025-05-06] MEDS: methylPREDNISolone sod succ 40 mg/mL INJ IVP ×4 (01:39→23:41)
[2025-05-06] MEDS: FUROsemide 10 mg/mL SDV 4mL 60 MG IVP (04:08)
[2025-05-06] MEDS: acetylcysteine (Mucomyst) 200 mg/mL SDV 4 mL 100 MG INHALATION ×2 (04:19→07:49)
[2025-05-06 05:12] LABS: Hematocrit 36.9 % (37-53); Hemoglobin 11.80 g/dL (11.27-16.99); Mean Corpuscular HGB Conc 32.0 g/dL (30-55); Mean Corpuscular Hemoglobin 29.4 pg (27-33); Mean Corpuscular Volume 91.8 fl (82-101); Nucleated Red Blood Cells % 0 %; Platelet Count 317 10^3/cmm (157-399); Red Blood Count 4.02 10^6/uL (3.85-5.65); White Blood Count 14.52 10^3/uL (3.29-11.43)
[2025-05-06 05:34] LABS: Alanine Aminotransferase 32 U/L (0-41); Albumin Level 3.9 g/dL (3.5-5.2); Alkaline Phosphatase 132 U/L (40-130); Anion Gap 19.7 (5-19); Aspartate Amino Transferase 15 U/L (0-40); Blood Urea Nitrogen 33 mg/dL (8-23); Calcium 9.2 mg/dL (8.5-10.5); Carbon Dioxide 27 mmol/L (22-29); Chloride 95 mmol/L (98-107); Globulin 1.8 g/dL (1.3-4.6); Glucose 426 mg/dL (65-115); Magnesium 2.0 mg/dL (1.7-2.3); Osmolality Calculated 311 mOsm/kg (285-295); Potassium 3.7 mmol/L (3.5-5.1); Sodium 138 mmol/L (136-145); Total Protein 5.7 g/dL (6.6-8.7)
--- NOTE | 2025-05-06 05:44 | PC.NURSE ---
patient noted to have respiratory desaturation and coughing up thick frothy secretions, dr price at bedside, received orders at this time for 60mg Lasix IVP x1 and to hold p.o meds for this morning.
[2025-05-06] MEDS: piperacillin-tazobactam 3.375 GM in sodium chloride 0.9% (plus) 50 ML IV ×3 (07:08→23:41)
[2025-05-06] MEDS: FUROsemide 10 mg/mL SDV 4mL 40 MG IVP ×2 (07:09→17:43)
--- NOTE | 2025-05-06 09:18 | XR_ITS ---
WS: [id number] Exam: XR chest 1V portable [id number] Date/Time of Exam: 05/06/2025 9:37 AM Reason For Exam: dyspnea/cough Comparison 05/05/2025. Extensive bilateral pulmonary infiltrates. Infiltrates on the RIGHT are somewhat denser than noted on the last exam. The heart is enlarged but unchanged in size. Small LEFT basal pleural effusion. No pneumothorax. Right-sided PICC line in satisfactory position unchanged. Left-sided cardiac pacer noted. Signs of prior median sternotomy and cardiac surgery. Bony structures are intact. XR/XR chest 1V portable [id number] IMPRESSION: 1. Increasing consolidation of infiltrates throughout the RIGHT lung since the last study. No other significant change.
--- NOTE | 2025-05-06 09:26 | ECG_ITS ---
[facility]06 Pat Name: Philippe Dahl Department: Room: ICU11 Gender: Male Residential Advisor: : [id number] Requested By: Blas Danileson Order Number: [id number] Dandy MD: Nahum Hollins M.D. Measurements Intervals [place] Rate: 127 P: 92 OK: 152 QRS: 101 QRSD: 114 T: 91 QT: 422 QTc: 616 Interpretive Statements SINUS TACHYCARDIA RIGHT AXIS DEVIATION [QRS AXIS > 100] ANTEROSEPTAL MYOCARDIAL INFARCTION , AGE INDETERMINATE Compared to ECG 05/04/2025 11:02:17 Right-axis deviation now present Ventricular premature complex(es) no longer present Myocardial infarct finding still present Electronically Signed On 05-07-2025 13:12:17 PROPOSAL REP by Nahum Hollins M.D. [email or web address]
[2025-05-06 10:45] LABS: Digoxin 0.7 ng/mL (0.6-1.2)
[2025-05-06] MEDS: amiodarone 150 MG/100 ML PREMIX 400 MG IV (10:45)
[2025-05-06] MEDS: AMIODARONE HCL/D5W 900 MG/500 ML BAG 33.33 MG IV (11:05)
[2025-05-06] MEDS: calcium gluconate 0.9% NaCL 1 GM/50 ML PREMIX IV (11:19)
[2025-05-06] MEDS: magnesium sulfate premix 1 GM/100 ML PIGGYBACK IV (11:22)
--- NOTE | 2025-05-06 11:36 | PC.NURSE ---
Event: At approximately 1102 patient entered into sustained VT, ICD fire and patient back to with PVC.
--- NOTE | 2025-05-06 11:59 | PM.PN ---
Subjective Subjective: Overnight patient had difficulty in breathing with concerns for congestive heart failure and was placed on BiPAP ventilation. Today morning patient is awake and alert. Transitioned over to heated high flow. Had an event of ventricle tachycardia which was cardioverted by his ICD to normal sinus rhythm. Blood pressure is better. Levophed today morning was on 2 and has been turned off. Vitals/I&O/Wt Last Vital Signs Temp 97.8 F 05/06/25 07:15 Pulse 108 H 05/06/25 11:35 Resp 22 H 05/06/25 11:35 BP 139/99 05/06/25 08:00 Pulse Ox 97 05/06/25 11:35 O2 Del Method BiPAP 05/06/25 08:00 O2 Flow Rate 60 05/06/25 11:35 FiO2 60 05/06/25 11:35 05/05/25 05/06/25 05/06/25 22:59 06:59 14:59 Intake Total 1940 / 2580 50 / 2630 546.375 / 546.375 Output Total 850 / 1050 1325 / 2375 1100 / 1100 Balance 1090 / 1530 -1275 / 255 -553.625 / -553.625 Weight last 48 hrs Weight 77.564 kg Weight 78 kg Physical Exam Narrative: General: No acute distress, AO x3, extremely hard of hearing HEENT: PERRLA, pupils bilaterally equal and reactive Chest: Bronchial breath sounds over lung espino, coarse crackles present in left middle and lower zone, right middle zone left more than right, posterior more than anterior CVS: S1-S2 irregularly irregular,, pansystolic murmur at apex rating to anterior axillary line, S3 gallop, tachycardia, no gallops, no rubs Abdomen: Soft, nontender, no organomegaly, bowel sounds present Neuro: No focal deficits, no facial deformity, AO x3, power 5/5 in all limbs Urinary Catheter Management: Mendoza: Cath Placed During This Visit: yes Reason for Continuing Indwelling Catheter: Accurate Measurement of Urinary Output in Critically Ill Patients Urinary Catheter Date of Insertion: 05/04/25 Urinary Catheter Time of Insertion: 11:56 Data 05/06/25 04:52 05/06/25 04:52 Micro: Microbiology 05/04/25 07:33 Gram Stain - Final Sputum - Expectorated Sputum Sputum Culture - Preliminary A&P Assessment and plan 1. Shock: BP soft in setting of possible combination of Adrenal insufficiency, Severe , and possible septic shock. Did have low cortisol on previous admission with low response to cosyntropin stimulation test. Currently on steroids for COPD exacerbation. Continue with fludrocortisone 0.1 mg daily. Wean Levophed keeping mean around for 65. Continue with midodrine 15 mg 3 times daily. 2. Ventricular arrhythmia: Had VT and nonsustained VT on previous admission. Today morning again had an episode of atrial tachycardia shocked by ICD. Amiodarone 150 mg IV bolus followed by drip. Will consult cardiology further recommendation. Did have cardiac stress test on previous admission to workup for ACS given VT and nonsustained V. tach. IV magnesium 1 g, IV calcium one-time. Monitor magnesium and phosphorus level daily. Target potassium around 4, magnesium around 2. 3. Acute on chronic hypoxic respiratory failure: Most likely in setting of acute on chronic systolic congestive heart failure along with pneumonia and COPD exacerbation. Does have bilateral pleural effusion as well. Plan for thoracentesis. Hold off on anticoagulation for now. Oxygen supplementation keeping saturation over 90%. Wean HHF accordingly. 4. Pneumonia: Appreciate chest x-ray and CTA chest. Concerning for significant consolidation in bilateral upper and middle lobe. Concern for fluid overload as well. Cannot rule out aspiration pneumonia. Diet advanced after speech evaluation. Follow-up sputum culture, appreciate trend procalcitonin, negative urine bacterial antigen, follow-up blood culture, negative respiratory viral panel. Continue treatment for hospital-acquired pneumonia with IV vancomycin and Zosyn. Negative MRSA swab. For now we will continue vancomycin 24 hours. Will monitor response and decide about further vancomycin. F/u PJP PCR, fingitel, fungal culture, LDH Aggressive pulmonary toilet with I-S and Acapella. C/w chest vest for now. 5. Chronic obstructive pulmonary disease, unspecified COPD type: Continue Solmedrol IV 40 mg Q6 hourly. Inhalation treatment with Pulmicort twice daily, ipratropium and Xopenex every 4 hour along with Mucomyst. 6. Acute on chronic heart failure with reduced ejection fraction (HFrEF, <= 40%) and combined systolic and diastolic dysfunction: Appreciate recent echocardiogram with a EF of 40%, moderately decreased LV function, akinesis of mid to distal anterior and apical region, moderate MR. Change lasix to 40 mg IV daily. Strict input output charting, daily weights. Fluid restriction to less than 1500. Monitor renal functions. Mendoza catheter. 7. Aortic stenosis, severe: Seen on echocardiogram from 04/28. 8. CAD (coronary artery disease): Appreciate recent stress test. Troponin cycled being done from ER. Continue with aspirin, statin, add low-dose beta-ketty. Monitor for chest pain. 9. ICD (implantable cardioverter-defibrillator) in place: 10. PAF (paroxysmal atrial fibrillation): C/w home dose of metoprolol and digoxin. Stable Dig levels. Holding off on Eliquis for now given need for thoracentesis 11. Hypotension: Plan: CODE STATUS: Discussed in detail with the patient with granddaughter at bedside. Daughter will be DPOA. Patient does not want any extensive chest compression or mechanical ventilation but is okay with cardioversion if needed. Dysphagia level 5 diet Protonix for PUD prophylaxis SCD for DVT prophylaxis given hemoptysis currently. If stable hemoglobin stable can start on full dose Lovenox after thoracentesis. Out of bed to chair. Plan for the day: Continue with midodrine 15 mg 3 times daily and fludrocortisone. Continue with Solu-Medrol. Wean 40 mg every 8 hourly. Mean artery pressure to be maintained over 65. Amiodarone drip for V. tach. Cardiology consultation. Maintain magnesium around 2 point potassium around 4. 1 g IV magnesium, 1 g IV calcium. Oxygen supplementation keeping saturation over 90%. Nebulization treatment. Aggressive pulmonary toilet. Follow-up culture results. Wean Levophed. Thoracentesis. For now continue with oral azithromycin to finish a 3-day course, IV vancomycin and Zosyn. Blood sugar elevated on BMP. Start on insulin sliding scale. A1c within normal limits. PDMP PDMP Reviewed: Not Reviewed Attestations Medical Necessity Statement*: Requested hospitalization for management of ventricular tachycardia, severe , congestive heart failure, bilateral pneumonia, respiratory failure Critical Care Time: The high probability of a clinically significant, sudden or life threatening deterioration of the patient's [Pulm, cardiac, renal] system(s) required my full and direct attention, intervention and personal management. The critical care time is as shown. This time is in addition to time spent performing any reported procedures but includes the following: [x] Data and vital sign review and interpretation [x] Patient assessment, examination and intervention [x] Documentation [x] Medication orders and management Critical Care Time (min): 70 Coding Level of Care Code Critical Care >/= 30 minutes Critical care time (in minutes): 70 The high probability of a clinically significant, sudden or life threatening deterioration, as referenced in this documentation, required my full and direct attention, intervention and personal management. The critical care time shown is in addition to time spent performing any reported separately billable procedures and includes the following: [x] Data and vital sign review and interpretation [x] Patient assessment, examination and intervention [x] Medication orders and management [x] Patient/Family updates as able [x] Care Coordination and Documentation. Diagnoses Shock R57.9 Ventricular arrhythmia I49.9 Acute on chronic hypoxic respiratory failure J96.21 Pneumonia J18.9 Laterality: bilateral Lung location: lower lobe of lung Pneumonia type: due to unspecified organism Chronic obstructive pulmonary disease, unspecified COPD type J44.9 COPD type: unspecified COPD Acute on chronic heart failure with reduced ejection fraction (HFrEF, <= 40%) and combined systolic and diastolic dysfunction I50.43 Aortic stenosis, severe I35.0 CAD (coronary artery disease) I25.10 Associated angina: without angina Coronary Disease-Associated Artery/Lesion type: [place] artery [place] vs. transplanted heart: [place] heart ICD (implantable cardioverter-defibrillator) in place Z95.810 PAF (paroxysmal atrial fibrillation) I48.0 Hypotension I95.9
--- NOTE | 2025-05-06 14:43 | P.CONIM_ITS ---
<Statement entered by Nahum Hollins M.D - 05/08/25 19:48> Patient was cared for in conjunction with an advanced practice practitioner. I reviewed the chart and all pertinent data including imaging, telemetry, and laboratory results. I discussed the patient in detail with the advanced practice practitioner. Please see their note for agreed upon plan of care and results for the patient. Providers/Reason For Consult 2 Consulting Physician/Specialty*: Dr Hollins, interventional cardiology Reason for Consult*: Monomorphic VT, acute resp failure Attending Physician: Blas Danielson MD History of Present Illness History of Present Illness Philippe Dahl is a 74 year old male with past medical history of COPD, paroxysmal atrial fibrillation, orthostatic hypotension treated with midodrine, CAD status post CABG earlier this year, systolic CHF (LVEF 40-45% 04/05/2025), [employer] dual-chamber pacemaker/ICD. He was recently admitted to the hospital from 04/23/2025 to 05/03/2025 for CHF exacerbation. He was brought back to the hospital by EMS the same night he was discharged with oxygen saturation 70%, respiratory failure. He had known monomorphic VT which appeared to have been shocked by his ICD during the last admission, Lexiscan stress test on 05/03/2025 did not show significant ischemia. Review of labs on admission 05/04/2025: Potassium 4.8, BUN 21, creatinine 0.7, lactic acid 3.0, AST 25, ALT 44. Troponin series: 84?>87?>104. This is similar to his previous series. BNP yesterday 22,000. Procalcitonin on admission 0.11, yesterday 0.46. Normal UA. He had a 1 minute long run of VT rate 272 bpm from 11:02 to 11:03 this morning, shocked x1 by the ICD which terminated the VT and restored sinus rhythm. Amiodarone bolus and infusion was started. Labs rechecked: Potassium this morning was 3.7, now down to 2.8 which is being replaced. This may have contributed to his arrhythmia. Chest x-ray today shows extensive bilateral infiltrates, small left base pleural effusion, thoracentesis planned for tomorrow. He denies chest pain, however is short of breath, currently on BiPAP. Medications/Allergies Home Medications ?Medication ?Instructions ?Recorded ?Confirmed ?Last Taken ?Type atorvastatin 40 mg tablet 40 mg PO DAILY #90 tabs 02/2305/04/25 05/03/25 Rx citalopram 20 mg tablet 20 mg PO DAILY #90 tabs 02/2305/04/25 05/03/25 Rx apixaban 5 mg tablet (Eliquis) 5 mg PO BID 04/01/2505/03/25 History ferrous sulfate 325 mg (65 mg 325 mg PO DAILY 04/01/25 05/04/25 05/03/25 History iron) tablet (FeroSul) tamsulosin 0.4 mg capsule 0.4 mg PO DAILY 04/01/2505/1805/03/25 History budesonide 0.5 mg/2 mL suspension 0.5 mg (2 mL) inhala tion 04/08/25 05/04/25 05/03/25 Rx for nebulization BID.RESPIRATORY #60 mL ipratropium bromide 0.02 % 0.5 mg (2.5 mL) inhalation Q8H 04/08/25 05/04/25 05/03/25 Rx solution for inhalation #150 mL metoprolol tartrate 25 mg tablet 12.5 mg (1/2 x 25 mg) PO 04/08/25 05/04/25 05/03/25 Rx BID@0900,2100 30 days #30 tabs pantoprazole 40 mg tablet,delayed 40 mg PO DAILY #30 t abs 04/08/25 05/04/25 05/03/25 Rx release prednisone 10 mg tablet See Taper PO DIRECTED #42 tabs 04/08/25 05/04/25 05/03/25 Rx furosemide 20 mg tablet (Lasix) 40 mg (2 x 20 mg) PO Q AM PRN 04/24/25 05/04/25 05/03/25 Rx weight gain #20 tabs digoxin 125 mcg (0.125 mg) tablet 125 mcg PO DAILY@120 0 #90 tabs 05/03/25 05/04/25 05/03/25 Rx midodrine 5 mg tablet 15 mg (3 x 5 mg) PO TID #90 tabs 05/03/25 05/04/25 05/03/25 Rx aspirin 81 mg tablet,delayed 81 mg PO DAILY 05/04/25 1 07/04/24 05/03/25 History release Allergies Allergy/AdvReac Type Severity Reaction Status Date / Time adhesive Allergy Unknown Verified 04/23/25 13:03 Current Medications Generic Name Dose Route Start Last Admin Trade Name Roe PRN Reason Stop Dose Admin Aspirin 81 mg 05/05/25 05:00 05/05/25 05:14 Aspirin 81 Mg Ec Tablet PO 81 mg On Hold: 05/05/25 09:52 DAILY AYAN Administration Resume: 05/07/25 05:00 Comment: Resume dose after Thoracentesis Atorvastatin Calcium 40 mg 05/05/25 05:00 05/06/25 05:41 Atorvastatin 40 Mg Tablet PO Not Given DAILY AYAN Azithromycin 500 mg 05/04/25 15:00 05/06/25 05:41 Azithromycin 250 Mg Tablet PO 05/07/25 14:59 Not Given DAILY AYAN Protocol Budesonide 0.5 mg 05/04/25 20:00 05/06/25 07:50 Budesonide 0.5 Mg/2 Ml Neb INHALATION 0.5 mg BID.RESPIRATORY AYAN Administration Citalopram Hydrobromide 20 mg 05/05/25 05:00 05/06/25 05:41 Citalopram 20 Mg Tablet PO Not Given DAILY AYAN Digoxin 125 mcg 05/04/25 12:00 05/06/25 12:24 Digoxin 125 Mcg Tablet PO 125 mcg DAILY@1200 AYAN Administration Docusate Sodium 100 mg 05/04/25 17:00 05/06/25 05:41 Docusate Sodium 100 Mg Capsule PO Not Given BID AYAN Fludrocortisone Acetate 0.1 mg 05/05/25 13:20 05/06/25 05:41 Fludrocortisone 0.1 Mg Tablet PO Not Given DAILY AYAN Piperacillin Sod/Tazobactam 50 mls @ 12.5 mls/hr 05/04/25 15:00 05/06/25 11:09 Sod 3.375 gm/ Sodium Chloride IV Infused Q8H AYAN Infusion Norepinephrine Bitartrate 4 mg in 250 mls @ 0 mls/hr 05/05/25 13:45 05/06/25 09:18 Levophed IV 0 mcg/min .Q0M AYAN 0 mls/hr Protocol Titration Per Protocol Vancomycin HCl 1,000 mg/ 250 mls @ 250 mls/hr 05/06/25 08:30 05/06/25 09:47 Sodium Chloride IV Infused Q12H AYAN Infusion AMIODARONE HCL/D5W 900 mg in 500 mls @ 0 mls/hr 05/06/25 10:45 05/06/25 11:05 Amiodarone 900 Mg/500 Ml-D5w IV 1 mg/min .Q0M AYAN 33.33 mls/hr Protocol Administration Per Protocol Insulin Human Lispro 0 unit 05/06/25 12:15 05/06/25 12:24 Insulin Lispro 100 Unit/1 Ml SUBCUT 14 unit WM&BEDTIME AYAN Administration Protocol Ipratropium Andrews 0.5 mg 05/06/25 14:00 05/06/25 13:51 Ipratropium 0.5 Mg/2.5 Ml Neb INHALATION 0.5 mg Q6H.RESP AYAN Administration Levalbuterol HCl 0.63 mg 05/06/25 14:00 05/06/25 13:51 Levalbuterol 0.63 Mg/3 Ml Neb INHALATION 0.63 mg Q6H.RESP AYAN Administration Metoprolol Tartrate 12.5 mg 05/04/25 10:04 05/05/25 09:03 Metoprolol Tartrate 25 Mg Tablet PO Not Given On Hold: 05/05/25 18:45 BID@0900,2100 AYAN Midodrine 15 mg 05/04/25 13:00 05/06/25 12:24 Midodrine 5 Mg Tablet PO 15 mg TID AYAN Administration Pantoprazole Sodium 40 mg 05/05/25 05:00 05/06/25 05:[address] 40 Mg Tablet PO Not Given DAILY AYAN Tamsulosin HCl 0.4 mg 05/05/25 05:00 05/06/25 05:42 Tamsulosin 0.4 Mg Capsule PO Not Given DAILY AYAN PFSH Acute 2 PFSH: Medical History Acute on chronic hypoxic respiratory failure Heart failure Afib COPD (chronic obstructive pulmonary disease) GERD (gastroesophageal reflux disease) [place] (hard of hearing) CAD (coronary artery disease) Hx of myocardial infarction Hyperlipidemia Depression Hypertension Surgical History Hx of CABG Hx of appendectomy Hx of heart artery stent Family History Father No problems noted. Mother Cancer stomach Social History Smoking and tobacco/nicotine status: current every day tobacco/nicotine user cigarettes [ Other cigarette details: 2 to 3 packs a week] Alcohol intake: current Alcohol intake frequency: few times a month Vitals/I&O/Wt Last Vital Signs Temp 97.8 F 05/06/25 14:03 Pulse 100 05/06/25 14:22 Resp 22 H 05/06/25 13:53 BP 101/75 05/06/25 12:45 Pulse Ox 90 05/06/25 13:53 O2 Del Method Heated High Flow 05/06/25 13:51 O2 Flow Rate 60 05/06/25 13:53 FiO2 50 05/06/25 13:53 05/05/25 05/06/25 05/06/25 22:59 06:59 14:59 Intake Total 1940 / 2630 50 / 2630 746.375 / 746.375 Output Total 850 / 2375 1325 / 2375 1100 / 1100 Balance 1090 / 255 -1275 / 255 -353.625 / -353.625 Weight last 48 hrs Weight 171 lb Weight 171 lb 15.369 oz Physical Exam 2 Const: COMMON NORMALS: no acute distress and patient oriented x3 GENERAL APPEARANCE: cooperative and comfortable ORIENTATION/CONSCIOUSNESS: Yes awake, Yes oriented to person, Yes oriented to place and Yes oriented to time Chest: COMMONS NORMALS: normal inspection of the chest and normal palpation of entire chest wall CHEST: Yes Symmetrical chest wall rise Resp: COMMON NORMALS: normal respiratory effort, No retractions and No use of accessory muscles EFFORT & INSPECTION: Yes symmetric chest movement A USCULTATION: rhonchi throughout Cardio: COMMON NORMALS: regular rate, regular rhythm, S1 normal heart sound present, S2 normal heart sound present, No gallops present (Cardio), No clicks present (Cardio), No murmurs present (Cardio) and No rub (Cardio) RATE: r egular rate RHYTHM: regular rhythm HEART SOUNDS: S1 normal heart sound present and S2 normal heart sound present PERIPHERAL PULSES: radial pulses present Extremity: COMMON NORMALS: no pedal edema Neuro: COMMON NORMALS: patient oriented x3 and moves all extremities S ENSORIUM/ORIENTATION: Yes oriented to person, Yes oriented to place and Yes oriented to time Urinary Catheter Management: Mendoza: Cath Placed During This Visit: yes Reason for Continuing Indwelling Catheter: Accurate Measurement of Urinary Output in Critically Ill Patients Urinary Catheter Date of Insertion: 05/04/25 Urinary Catheter Time of Insertion: 11:56 Data 05/06/25 04:52 05/06/25 14:32 Micro: Microbiology 05/04/25 07:33 Gram Stain - Final Sputum - Expectorated Sputum Sputum Culture - Final A&P Assessment and plan 1. ICD (implantable cardioverter-defibrillator) in place: 2. PAF (paroxysmal atrial fibrillation): 3. Acute on chronic heart failure with reduced ejection fraction (HFrEF, <= 40%) and combined systolic and diastolic dysfunction: 4. Aortic stenosis, severe: 5. Chronic obstructive pulmonary disease, unspecified COPD type: 6. Acute on chronic hypoxic respiratory failure: 7. Pneumonia: 8. Hypotension: 9. CAD (coronary artery disease): Plan: He is suspected to have flash pulmonary edema due to atrial fibrillation with RVR, ventricular rate has been above 120bpm while in atrial fibrillation. The pacemaker/ICD is functioning appropriately, and defibrillated for a very fast VT. Will plan for coronary angiogram over the weekend after he has had the thoracentesis, that will hopefully allow him to lay flat on the cath table without respiratory distress. Continue amiodarone infusion, electrolyte replacement for potassium less than 4 and magnesium less than 2. If he continues to have arrhythmias, he may need mexiletine for possibility of scar VT, but will plan for coronary angiogram to rule out ischemic cause. PDMP PDMP Reviewed: Not Reviewed Coding Level of Care Code Acute Code for Chg Fwd Diagnoses ICD (implantable cardioverter-defibrillator) in place Z95.810 PAF (paroxysmal atrial fibrillation) I48.0 Acute on chronic heart failure with reduced ejection fraction (HFrEF, <= 40%) and combined systolic and diastolic dysfunction I50.43 Aortic stenosis, severe I35.0 Chronic obstructive pulmonary disease, unspecified COPD type J44.9 COPD type: unspecified COPD Acute on chronic hypoxic respiratory failure J96.21 Pneumonia J18.9 Hypotension I95.9 CAD (coronary artery disease) I25.10
--- NOTE | 2025-05-06 15:07 | ECG_ITS ---
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 Measurements Intervals [place] Rate: 90 P: 96 MN: 123 QRS: 100 QRSD: 114 T: 154 QT: 386 QTc: 474 Interpretive Statements SINUS RHYTHM WITH FREQUENT VENTRICULAR PREMATURE COMPLEXES POSSIBLE LEFT ATRIAL ENLARGEMENT [-0.1mV P-WAVE IN V1/V2] BORDERLINE RIGHT AXIS DEVIATION [QRS AXIS > 90] LOW QRS VOLTAGE IN EXTREMITY LEADS [QRS DEFLECTION < 0.5 mV IN LIMB LEADS] POSSIBLE ANTERIOR MYOCARDIAL INFARCTION , OF INDETERMINATE AGE [30 ms Q WAVE IN V3/V4, OR R < 0.2 mV IN V4] Compared to ECG 05/06/2025 09:26:48 Ventricular premature complex(es) now present Low QRS voltage now present Sinus tachycardia no longer present Myocardial infarct finding still present Electronically Signed On 05-07-2025 13:07:52 HEEL EMERY BUFFER by Nahum Hollins M.D. [email or web address]
[2025-05-06 15:11] LABS: Anion Gap 16.8 (5-19); Blood Urea Nitrogen 29 mg/dL (8-23); Calcium 8.2 mg/dL (8.5-10.5); Carbon Dioxide 26 mmol/L (22-29); Chloride 86 mmol/L (98-107); Magnesium 2.0 mg/dL (1.7-2.3); Osmolality Calculated 301 mOsm/kg (285-295); Sodium 126 mmol/L (136-145)
[2025-05-06 15:16] LABS: Glucose 689 mg/dL (65-115); Potassium 2.8 mmol/L (3.5-5.1)
[2025-05-06] MEDS: potassium chloride premix 100 ML 25 MEQ IV (15:30)
--- NOTE | 2025-05-06 15:45 | PC.NURSE ---
Pacemaker check completed by Char DRISCOLL.
--- NOTE | 2025-05-06 16:33 | PC.OT ---
OT EVALUATION ORDERS RECEIVED. OT EVAL HELD DUE TO VTACH THIS MORNING.
[2025-05-06 17:44] LABS: Fungitell 1-3-B Glucan Assay <31 pg/mL (<60); Interpretation Negative (Negative)
[2025-05-06 20:18] LABS: Potassium 4.4 mmol/L (3.5-5.1)
[2025-05-07] VITALS (95 sets, daily range): BP systolic 83–140; BP diastolic 60–105; PULSE 0–110; RESP 12–29; TEMP 36.1; O2SAT 75–100
[2025-05-07 05:22] LABS: Hematocrit 38.1 % (37-53); Hemoglobin 11.90 g/dL (11.27-16.99); Mean Corpuscular HGB Conc 31.2 g/dL (30-55); Mean Corpuscular Hemoglobin 30.1 pg (27-33); Mean Corpuscular Volume 96.2 fl (82-101); Nucleated Red Blood Cells % 0 %; Platelet Count 186 10^3/cmm (157-399); Red Blood Count 3.96 10^6/uL (3.85-5.65); White Blood Count 14.16 10^3/uL (3.29-11.43)
[2025-05-07 05:33] LABS: INR 1.06 (0.8-1.2); Prothrombin Time 14.50 SECONDS (12.1-14.9)
[2025-05-07 05:42] LABS: Alanine Aminotransferase 30 U/L (0-41); Albumin Level 3.7 g/dL (3.5-5.2); Alkaline Phosphatase 129 U/L (40-130); Anion Gap 15.8 (5-19); Aspartate Amino Transferase 19 U/L (0-40); Blood Urea Nitrogen 31 mg/dL (8-23); Calcium 9.4 mg/dL (8.5-10.5); Carbon Dioxide 32 mmol/L (22-29); Chloride 98 mmol/L (98-107); Globulin 1.8 g/dL (1.3-4.6); Glucose 203 mg/dL (65-115); Magnesium 2.2 mg/dL (1.7-2.3); Osmolality Calculated 304 mOsm/kg (285-295); Potassium 4.8 mmol/L (3.5-5.1); Sodium 141 mmol/L (136-145); Total Protein 5.5 g/dL (6.6-8.7)
[2025-05-07] MEDS: methylPREDNISolone sod succ 40 mg/mL INJ IVP ×3 (06:25→23:18)
[2025-05-07] MEDS: piperacillin-tazobactam 3.375 GM in sodium chloride 0.9% (plus) 50 ML IV ×3 (06:25→23:21)
[2025-05-07] MEDS: FUROsemide 10 mg/mL SDV 4mL 40 MG IVP ×4 (06:26→23:19)
[2025-05-07 08:42] LABS: ABG PCO2 40.5 mmHg (35-45); ABG PH Result 7.51 (7.35-7.45); Alveolar-Arterial Oxygen Gradi 35.7 mmHg (5-10); Arterial Blood Gas Hematocrit 36.1 % (42-52); Blood Gas Allen Test Pos; Blood Gas LPM 60.0 %; Blood Gas Operator Identificat WALCI; Blood Gas Sample Site Radial, left; Blood Gas Sample Type Arterial; Carboxyhemoglobin 1.3 %THgb (0.4-20.1); Glucose Level-ABG 246.0 mg/dL (70-115); HCO3 ABG 32.6 mmol/L (22-26); Ionized Calcium Level - ABG 1.2 mmol/L (1.1-1.4); Methemoglobin 0.7 % (0.4-1.5); Oxygen Saturation ABG 77.0; PO2 ABG 39.8 mmHg (80.0-100.0); PO2 FiO2 Ratio Arterial Blood 78; Potassium Level - ABG 3.8 mmol/L (3.5-5.0); Sodium Level - ABG 138.0 mmol/L (131-143)
--- NOTE | 2025-05-07 09:42 | US_ITS ---
WS: [id number] ULTRASOUND-GUIDED THORACENTESIS CLINICAL INFORMATION: resp failure COMPARISON: None. PROCEDURE: Informed consent: The risks, benefits, and alternatives of the procedure were discussed with the patient. Verbal and written consent was obtained. Timeout: A timeout was performed to confirm the correct patient, procedure, and site. Site: LEFT chest Preparation: A suitable skin site was identified. The patient was prepped and draped in usual sterile fashion. Lidocaine 1% was used for local anesthesia. Catheter: 4 [place] One-Step catheter. Fluid Volume: 800 cc Color: Clear yellow Complications: No pneumothorax on the Postthoracentesis radiograph US/ thoracentesis [id number] IMPRESSION: Uncomplicated ultrasound-guided LEFT chest thoracentesis.
--- NOTE | 2025-05-07 09:51 | PC.SLP ---
Patient is NPO for procedure today per nursing. 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
--- NOTE | 2025-05-07 10:05 | P.PN_ITS ---
<Statement entered by Nahum Hollins M.D - 05/08/25 19:50> Patient was cared for in conjunction with an advanced practice practitioner. I reviewed the chart and all pertinent data including imaging, telemetry, and laboratory results. I discussed the patient in detail with the advanced practice practitioner. Please see their note for agreed upon plan of care and results for the patient. Subjective 2 Subjective: He has been stable overnight. No more occurrences of VT. Continue amiodarone infusion at 0.5mg/min. Vitals/I&O/Wt Last Vital Signs Temp 97.8 F 05/06/25 14:03 Pulse 105 H 05/07/25 08:00 Resp 26 H 05/07/25 08:00 BP 114/83 05/07/25 08:00 Pulse Ox 81 L 05/07/25 08:00 O2 Del Method Heated High Flow 05/07/25 07:45 O2 Flow Rate 60 05/07/25 07:45 FiO2 50 05/07/25 07:45 05/06/25 05/07/25 05/07/25 22:59 06:59 14:59 Intake Total 683.864 / 2070.239 640 / 2070.239 Output Total 500 / 2100 500 / 2100 Balance 183.864 / -29.761 140 / -29.761 Weight last 48 hrs Weight 170 lb 13.732 oz Weight 171 lb 1.259 oz Weight 171 lb Physical Exam 2 Const: COMMON NORMALS: no acute distress and patient oriented x3 GENERAL APPEARANCE: cooperative and comfortable ORIENTATION/CONSCIOUSNESS: Yes awake, Yes oriented to person, Yes oriented to place and Yes oriented to time Chest: COMMONS NORMALS: normal inspection of the chest and normal palpation of entire chest wall CHEST: Yes Symmetrical chest wall rise Resp: COMMON NORMALS: normal respiratory effort, No retractions and No use of accessory muscles EFFORT & INSPECTION: Yes symmetric chest movement A USCULTATION: rales (coarse) bilateral Cardio: COMMON NORMALS: regular rate, regular rhythm, S1 normal heart sound present, S2 normal heart sound present, No gallops present (Cardio), No clicks present (Cardio), No murmurs present (Cardio) and No rub (Cardio) RATE: r egular rate RHYTHM: regular rhythm HEART SOUNDS: S1 normal heart sound present and S2 normal heart sound present PERIPHERAL PULSES: radial pulses present Extremity: COMMON NORMALS: no pedal edema Neuro: COMMON NORMALS: patient oriented x3 and moves all extremities S ENSORIUM/ORIENTATION: Yes oriented to person, Yes oriented to place and Yes oriented to time Urinary Catheter Management: Mendoza: Cath Placed During This Visit: yes Reason for Continuing Indwelling Catheter: Accurate Measurement of Urinary Output in Critically Ill Patients Urinary Catheter Date of Insertion: 05/04/25 Urinary Catheter Time of Insertion: 11:56 Data 05/07/25 05:00 05/07/25 05:00 Micro: Microbiology 05/04/25 07:33 Gram Stain - Final Sputum - Expectorated Sputum Sputum Culture - Final A&P Assessment and plan 1. ICD (implantable cardioverter-defibrillator) in place: 2. PAF (paroxysmal atrial fibrillation): 3. Atherosclerosis of [place] coronary artery of [place] heart without angina pectoris: 4. Ventricular arrhythmia: 5. Aortic stenosis, severe: 6. Acute on chronic heart failure with reduced ejection fraction (HFrEF, <= 40%) and combined systolic and diastolic dysfunction: 7. Hypotension: 8. Chronic obstructive pulmonary disease, unspecified COPD type: Plan: Possible thoracentesis today. Will plan for coronary angiogram over the weekend to determine if volume overload and VT due to ischemia. Continue Lasix 40mg IV BID, blood pressure soft but maintaining well. Continue midodrine and fludrocortisone. Electrolytes in range so far today, continue amiodarone infusion, digoxin level good yesterday, metoprolol tartrate 12.5 BID. PDMP PDMP Reviewed: Not Reviewed Attestations 2 Medical Necessity Statement*: ischemic workup, monomorphic VT on amiodarone now. Coding Level of Care Code Acute Code for Chg Fwd Diagnoses ICD (implantable cardioverter-defibrillator) in place Z95.810 PAF (paroxysmal atrial fibrillation) I48.0 Atherosclerosis of [place] coronary artery of [place] heart without angina pectoris I25.10 Coronary Disease-Associated Artery/Lesion type: [place] artery Ventricular arrhythmia I49.9 Aortic stenosis, severe I35.0 Acute on chronic heart failure with reduced ejection fraction (HFrEF, <= 40%) and combined systolic and diastolic dysfunction I50.43 Hypotension I95.9 Chronic obstructive pulmonary disease, unspecified COPD type J44.9 COPD type: unspecified COPD
--- NOTE | 2025-05-07 10:08 | PC.NURSE ---
Kailash DRISCOLL advised to leave amio drip on at current rate
--- NOTE | 2025-05-07 13:00 | PC.SOCIAL ---
IMM Update pg 2 of IMM Updated and reviewed w/ patient. Copy provided and copy dated, initialed and placed in chart.
--- NOTE | 2025-05-07 14:57 | P.PN_ITS ---
Subjective 2 Subjective: Seen multiple times during the day. Overnight patient had difficulty in breathing for which she was placed on BiPAP. Today morning he was transition back to heated high flow. Currently he is on 60 L 50%. Seen with daughter at bedside. Patient is awake and alert. Denies any nausea, vomiting, headache. Blood pressures have been better controlled. States feeling slightly better though. Sat up in the chair during the day multiple times. Vitals/I&O/Wt Last Vital Signs Temp 97.8 F 05/06/25 14:03 Pulse 84 05/07/25 14:01 Resp 20 H 05/07/25 13:54 BP 121/84 05/07/25 13:30 Pulse Ox 93 05/07/25 13:54 O2 Del Method Heated High Flow 05/07/25 13:52 O2 Flow Rate 60 05/07/25 13:54 FiO2 50 05/07/25 13:54 05/06/25 05/07/25 05/07/25 22:59 06:59 14:59 Intake Total 683.864 / 1430.239 640 / 2070.239 Output Total 500 / 1600 500 / 2100 Balance 183.864 / -169.761 140 / -29.761 Weight last 48 hrs Weight 77.5 kg Weight 77.6 kg Weight 77.564 kg Physical Exam 2 Narrative: General: No acute distress, AO x3, extremely hard of hearing HEENT: PERRLA, pupils bilaterally equal and reactive Chest: Bronchial breath sounds over lung espino, coarse crackles present in left middle and lower zone, right middle zone left more than right, posterior more than anterior CVS: S1-S2 irregularly irregular,, pansystolic murmur at apex rating to anterior axillary line, S3 gallop, tachycardia, no gallops, no rubs Abdomen: Soft, nontender, no organomegaly, bowel sounds present Neuro: No focal deficits, no facial deformity, AO x3, power 5/5 in all limbs Urinary Catheter Management: Mendoza: Cath Placed During This Visit: yes Reason for Continuing Indwelling Catheter: Accurate Measurement of Urinary Output in Critically Ill Patients Urinary Catheter Date of Insertion: 05/04/25 Urinary Catheter Time of Insertion: 11:56 Data 05/07/25 05:00 05/07/25 05:00 Micro: Microbiology 05/04/25 07:33 Gram Stain - Final Sputum - Expectorated Sputum Sputum Culture - Final A&P Assessment and plan 1. Shock: BP soft in setting of possible combination of Adrenal insufficiency, Severe , and possible septic shock. Did have low cortisol on previous admission with low response to cosyntropin stimulation test. Currently on steroids for COPD exacerbation. Continue with fludrocortisone 0.1 mg daily. Wean Levophed keeping mean around for 65. Continue with midodrine 15 mg 3 times daily. 2. Ventricular arrhythmia: Had VT and nonsustained VT on previous admission. Today morning again had an episode of atrial tachycardia shocked by ICD. Amiodarone 150 mg IV bolus followed by drip. Will consult cardiology further recommendation. Did have cardiac stress test on previous admission to workup for ACS given VT and nonsustained V. tach. IV magnesium 1 g, IV calcium one-time. Monitor magnesium and phosphorus level daily. Target potassium around 4, magnesium around 2. 3. Acute on chronic hypoxic respiratory failure: Most likely in setting of acute on chronic systolic congestive heart failure along with pneumonia and COPD exacerbation. Does have bilateral pleural effusion as well. Plan for thoracentesis. Hold off on anticoagulation for now. Oxygen supplementation keeping saturation over 90%. Wean HHF accordingly. 4. Pneumonia: Appreciate chest x-ray and CTA chest. Concerning for significant consolidation in bilateral upper and middle lobe. Concern for fluid overload as well. Cannot rule out aspiration pneumonia. Diet advanced after speech evaluation. Follow-up sputum culture, appreciate trend procalcitonin, negative urine bacterial antigen, follow-up blood culture, negative respiratory viral panel. Continue treatment for hospital-acquired pneumonia with IV vancomycin and Zosyn. Negative MRSA swab. For now we will continue vancomycin 24 hours. Will monitor response and decide about further vancomycin. F/u PJP PCR, fingitel, fungal culture, LDH Aggressive pulmonary toilet with I-S and Acapella. C/w chest vest for now. 5. Chronic obstructive pulmonary disease, unspecified COPD type: Continue Solmedrol IV 40 mg Q6 hourly. Inhalation treatment with Pulmicort twice daily, ipratropium and Xopenex every 4 hour along with Mucomyst. 6. Acute on chronic heart failure with reduced ejection fraction (HFrEF, <= 40%) and combined systolic and diastolic dysfunction: Appreciate recent echocardiogram with a EF of 40%, moderately decreased LV function, akinesis of mid to distal anterior and apical region, moderate MR. Change lasix to 40 mg IV daily. Strict input output charting, daily weights. Fluid restriction to less than 1500. Monitor renal functions. Mendoza catheter. 7. Aortic stenosis, severe: Seen on echocardiogram from 04/28. 8. CAD (coronary artery disease): Appreciate recent stress test. Troponin cycled being done from ER. Continue with aspirin, statin, add low-dose beta-ketty. Monitor for chest pain. 9. ICD (implantable cardioverter-defibrillator) in place: 10. PAF (paroxysmal atrial fibrillation): C/w home dose of metoprolol and digoxin. Stable Dig levels. Holding off on Eliquis for now given need for thoracentesis 11. Hypotension: Plan: CODE STATUS: Discussed in detail with the patient with granddaughter at bedside. Daughter will be DPOA. Patient does not want any extensive chest compression or mechanical ventilation but is okay with cardioversion if needed. Dysphagia level 5 diet Protonix for PUD prophylaxis SCD for DVT prophylaxis given hemoptysis currently. If stable hemoglobin stable can start on full dose Lovenox after thoracentesis. Out of bed to chair. Plan for the day: Blood pressure is better. Goal blood pressure less than 140/90 mmHg with mean over 65. Continue with midodrine 15 mg 3 times daily, fludrocortisone 0.1 mg daily. If blood pressures continue to remain stable can plan to change midodrine to 10 mg 3 times daily. Wean Solu-Medrol to 40 mg Q8 hourly. Patient continues to require high oxygen supplementation to maintain saturation over 90%. Plan for thoracentesis today. Continue with IV Lasix 40 mg every 12 hourly. Fluid restriction to less than 1500 cc. Depending on the urine output will give an extra dose of Lasix. Did have an ABG today morning. Concerning for VBG. Continue with insulin sliding scale. Sodium better today. Potassium stable. Target potassium around 4, magnesium around 2. No further episodes of ectopy. Continue with amiodarone drip for now. Will likely transition to oral 400 mg twice daily next 24 hours. Appreciate cardiology recommendations. Possible plan for cardiac angiogram over the weekend to further evaluate multiple episodes of V. tach and nonsustained V. tach. Will consult pulmonology for further recommendations with possible need for bronchoscopy given significant consolidation not improving with aggressive pulmonary toilet. Oxygen supplementation keeping saturation over 90%. Nebulization treatment. Aggressive pulmonary toilet. Follow-up culture results. Out of bed to chair. Physical therapy. Analgesia: Morphine 2 mg every 4 hours as needed Glycemic control: Low-dose protocol Nutrition: Cardiac diet postthoracentesis CODE STATUS: DNR/DNI PUD prophylaxis: Protonix DVT prophylaxis: SCD for now. Will start on heparin 5000 every 8 hourly postthoracentesis. Discharge planning: Discussed in detail with patient's family at bedside. Physical therapy evaluation. High likelihood of needing SNF versus LTAC depending on clinical improvement. Continue with care at ICU This documentation was created by [employer] gastroenterology nurse practitioner software. Every effort was made to ensure accuracy of gastroenterology nurse practitioner. Any obvious errors or omissions should be clarified with the author of the document. PDMP PDMP Reviewed: Not Reviewed Attestations 2 Medical Necessity Statement*: Requested hospitalization for management of ventricular tachycardia, severe , congestive heart failure, bilateral pneumonia, respiratory failure Critical Care Time: The high probability of a clinically significant, sudden or life threatening deterioration of the patient's [Pulm, cardiac, renal] system(s) required my full and direct attention, intervention and personal management. The critical care time is as shown. This time is in addition to time spent performing any reported procedures but includes the following: [x] Data and vital sign review and interpretation [x] Patient assessment, examination and intervention [x] Documentation [x] Medication orders and management Critical Care Time (min): 65 Coding Level of Care Code Critical Care >/= 30 minutes Critical care time (in minutes): 65 The high probability of a clinically significant, sudden or life threatening deterioration, as referenced in this documentation, required my full and direct attention, intervention and personal management. The critical care time shown is in addition to time spent performing any reported separately billable procedures and includes the following: [x] Data and vital sign review and interpretation [x ] Patient assessment, examination and intervention [x] Medication orders and management [x] Patient/Family updates as able [x] Care Coordination and Documentation. Diagnoses Shock R57.9 Ventricular arrhythmia I49.9 Acute on chronic hypoxic respiratory failure J96.21 Pneumonia J18.9 Laterality: bilateral Lung location: lower lobe of lung Pneumonia type: due to unspecified organism Chronic obstructive pulmonary disease, unspecified COPD type J44.9 COPD type: unspecified COPD Acute on chronic heart failure with reduced ejection fraction (HFrEF, <= 40%) and combined systolic and diastolic dysfunction I50.43 Aortic stenosis, severe I35.0 CAD (coronary artery disease) I25.10 Associated angina: without angina Coronary Disease-Associated Artery/Lesion type: [place] artery [place] vs. transplanted heart: [place] heart ICD (implantable cardioverter-defibrillator) in place Z95.810 PAF (paroxysmal atrial fibrillation) I48.0 Hypotension I95.9
--- NOTE | 2025-05-07 14:58 | XR_ITS ---
WS: [id number] CHEST XRAY TECHNIQUE: Portable chest. CLINICAL INFORMATION: post thora centesis COMPARISON: 05/06/[address] 05/04/2025 FINDINGS: AICD. RIGHT PICC line with tip in the SVC. Heart: Cardiomegaly. Sternotomy. Lungs: Fibrotic changes within both lungs. Improved small LEFT pleural effusion postthoracentesis. No pneumothorax. Trace pleural fluid in the cardiophrenic angles Bones: Osteopenia. XR/XR chest 1V portable [id number] IMPRESSION: 1. No significant residual LEFT pleural fluid 2. No pneumothorax post LEFT thoracentesis
--- NOTE | 2025-05-07 15:06 | PC.NURSE ---
Dr. Dai at bedside for thoracentesis, pulled off 800 ml
[2025-05-07] MEDS: heparin 5,000 unit/mL INJ 1 mL 5000 UNIT SUBCUT ×2 (15:43→23:20)
[2025-05-07 16:34] LABS: P. Jirovecii DNA QL PCR Not Detected (Not Detected); P. Jirovecii DNA QL PCR Source Sputum
--- NOTE | 2025-05-07 17:42 | PM.CONSULT ---
Providers/Reason For Consult Consulting Physician/Specialty*: Dr Sen Reason for Consult*: pneumonia Attending Physician: Blas Danielson MD History of Present Illness History of Present Illness Philippe Dahl is a 74 year old male with past medical history of chronic systolic heart failure with EF of 40% status post CABG, ischemic cardiomyopathy, AICD in place for A-fib, COPD, recent hospitalization for congestive heart failure and pneumonia was discharged and readmitted within 24 hours for shortness of breath. He was found to be hypoxic with saturations in the 70s per EMS, multiple rounds of nebulizer solution given along with oxygen. Had some bloody cough/secretions, placed on BiPAP. In ER was found to be tachycardic and high flow nasal cannula started at 60 l /50 % FiO2. He was found to have pneumonia and started on IV vancomycin and Zosyn for hospital-acquired pneumonia and azithromycin for atypical coverage also placed on incentive spirometer and Acapella with chest vest. Possible exacerbation started on Solu-Medrol ipratropium and Xopenex every 4 hours with Mucinex. Today he has had increased difficulty breathing and started on BiPAP. Had an atrial tachycardia episode shocked by ICD. Currently on amiodarone drip. Cardiology consulted. Previous admission has had V tach and nonsustained episodes periodically. Electrolytes being replaced. Due to having bilateral pleural effusions thoracentesis is planned anticoagulation held. Thoracentesis done today 800 cc removed on the left side. Feels okay, does not complain of any pain Medications/Allergies Home Medications ?Medication ?Instructions ?Recorded ?Confirmed ?Last Taken ?Type atorvastatin 40 mg tablet 40 mg PO DAILY #90 tabs 03/22/22 05/04/25 05/03/25 Rx citalopram 20 mg tablet 20 mg PO DAILY #90 tabs 03/22/22 05/04/25 05/03/25 Rx apixaban 5 mg tablet (Eliquis) 5 mg PO BID 04/01/25 05/04/25 05/03/25 History ferrous sulfate 325 mg (65 mg 325 mg PO DAILY 04/01/25 05/04/25 05/03/25 History iron) tablet (FeroSul) tamsulosin 0.4 mg capsule 0.4 mg PO DAILY 04/01/25 05/04/25 05/03/25 History budesonide 0.5 mg/2 mL suspension 0.5 mg (2 mL) inhalation 04/08/25 05/04/25 05/03/25 Rx for nebulization BID.RESPIRATORY #60 mL ipratropium bromide 0.02 % 0.5 mg (2.5 mL) inhalation Q8H 04/08/25 05/04/25 05/03/25 Rx solution for inhalation #150 mL metoprolol tartrate 25 mg tablet 12.5 mg (1/2 x 25 mg) PO 04/08/25 05/04/25 05/03/25 Rx BID@0900,2100 30 days #30 tabs pantoprazole 40 mg tablet,delayed 40 mg PO DAILY #30 tabs 04/08/25 05/04/25 05/03/25 Rx release prednisone 10 mg tablet See Taper PO DIRECTED #42 tabs 04/08/25 05/04/25 05/03/25 Rx furosemide 20 mg tablet (Lasix) 40 mg (2 x 20 mg) PO QAM PRN 04/24/25 05/04/25 05/03/25 Rx weight gain #20 tabs digoxin 125 mcg (0.125 mg) tablet 125 mcg PO DAILY@1200 #90 tabs 05/03/25 05/04/25 05/03/25 Rx midodrine 5 mg tablet 15 mg (3 x 5 mg) PO TID #90 tabs 05/03/25 05/04/25 05/03/25 Rx aspirin 81 mg tablet,delayed 81 mg PO DAILY 05/04/25 05/04/25 05/03/25 History release Allergies Allergy/AdvReac Type Severity Reaction Status Date / Time adhesive Allergy Unknown Verified 04/23/25 13:03 Current Medications Generic Name Dose Route Start Last Admin Trade Name Freq PRN Reason Stop Dose Admin Amiodarone HCl 400 mg 05/07/25 17:00 05/07/25 16:59 Amiodarone 200 Mg Tablet PO 400 mg BID AYAN Administration Aspirin 81 mg 05/05/25 05:00 05/07/25 05:30 Aspirin 81 Mg Ec Tablet PO Not Given DAILY AYAN Atorvastatin Calcium 40 mg 05/05/25 05:00 05/07/25 04:40 Atorvastatin 40 Mg Tablet PO 40 mg DAILY AYAN Administration Budesonide 0.5 mg 05/04/25 20:00 05/07/25 07:39 Budesonide 0.5 Mg/2 Ml Neb INHALATION 0.5 mg BID.RESPIRATORY AYAN Administration Citalopram Hydrobromide 20 mg 05/05/25 05:00 05/07/25 04:43 Citalopram 20 Mg Tablet PO 20 mg DAILY AYAN Administration Digoxin 125 mcg 05/04/25 12:00 05/07/25 12:22 Digoxin 125 Mcg Tablet PO 125 mcg DAILY@1200 AYAN Administration Docusate Sodium 100 mg 05/04/25 17:00 05/07/25 16:59 Docusate Sodium 100 Mg Capsule PO 100 mg BID AYAN Administration Fludrocortisone Acetate 0.1 mg 05/05/25 13:20 05/07/25 04:43 Fludrocortisone 0.1 Mg Tablet PO 0.1 mg DAILY AYAN Administration Furosemide 40 mg 05/07/25 15:04 05/07/25 15:42 Furosemide 10 Mg/Ml Sdv 4ml IVP 40 mg Q8H AYAN Administration Heparin Sodium (Porcine) 5,000 unit 05/07/25 15:15 05/07/25 15:43 Heparin 5,000 Unit/Ml Inj 1 Ml SUBCUT 5,000 unit Q8H AYAN Administration Piperacillin Sod/Tazobactam 50 mls @ 12.5 mls/hr 05/04/25 15:00 05/07/25 15:42 Sod 3.375 gm/ Sodium Chloride IV 12.5 mls/hr Q8H AYAN Administration Norepinephrine Bitartrate 4 mg in 250 mls @ 0 mls/hr 05/05/25 13:45 05/06/25 09:18 Levophed IV 0 mcg/min .Q0M AYAN 0 mls/hr Protocol Titration Per Protocol Vancomycin HCl 1,000 mg/ 250 mls @ 250 mls/hr 05/06/25 08:30 05/07/25 08:27 Sodium Chloride IV 250 mls/hr Q12H AYAN Administration Insulin Human Lispro 0 unit 05/06/25 12:15 05/07/25 17:02 Insulin Lispro 100 Unit/1 Ml SUBCUT 2 unit WM&BEDTIME AYAN Administration Protocol Ipratropium [place] 0.5 mg 05/06/25 14:00 05/07/25 13:52 Ipratropium 0.5 Mg/2.5 Ml Neb INHALATION 0.5 mg Q6H.RESP AYAN Administration Levalbuterol HCl 0.63 mg 05/06/25 14:00 05/07/25 13:52 Levalbuterol 0.63 Mg/3 Ml Neb INHALATION 0.63 mg Q6H.RESP AYAN Administration Methylprednisolone Sodium Succinate 40 mg 05/06/25 15:00 05/07/25 15:42 Methylprednisolone Sod Succ 40 Mg/Ml Inj IVP 40 mg Q8H AYAN Administration Metoprolol Tartrate 12.5 mg 05/04/25 10:04 05/05/25 09:03 Metoprolol Tartrate 25 Mg Tablet PO Not Given On Hold: 05/05/25 18:45 BID@0900,2100 AYAN Midodrine 15 mg 05/04/25 13:00 05/07/25 12:22 Midodrine 5 Mg Tablet PO 15 mg TID AYAN Administration Pantoprazole Sodium 40 mg 05/05/25 05:00 05/07/25 04:[address] 40 Mg Tablet PO 40 mg DAILY AYAN Administration Tamsulosin HCl 0.4 mg 05/05/25 05:00 05/07/25 04:40 Tamsulosin 0.4 Mg Capsule PO 0.4 mg DAILY AYAN Administration PFSH Acute PFSH: Medical History Acute on chronic hypoxic respiratory failure Heart failure Afib COPD (chronic obstructive pulmonary disease) GERD (gastroesophageal reflux disease) [place] (hard of hearing) CAD (coronary artery disease) Hx of myocardial infarction Hyperlipidemia Depression Hypertension Surgical History Hx of CABG Hx of appendectomy Hx of heart artery stent Family History Father No problems noted. Mother Cancer stomach Social History Smoking and tobacco/nicotine status: current every day tobacco/nicotine user cigarettes [ Other cigarette details: 2 to 3 packs a week] Alcohol intake: current Alcohol intake frequency: few times a month Vitals/I&O/Wt Last Vital Signs Temp 97.8 F 05/06/25 14:03 Pulse 88 05/07/25 17:00 Resp 16 05/07/25 17:00 BP 109/78 05/07/25 16:00 Pulse Ox 94 05/07/25 17:00 O2 Del Method Heated High Flow 05/07/25 13:52 O2 Flow Rate 60 05/07/25 17:00 FiO2 50 05/07/25 17:00 05/07/25 05/07/25 05/07/25 06:59 14:59 22:59 Intake Total 640 / 2070.239 50 / 50 Output Total 500 / 2100 1600 / 1600 Balance 140 / -29.761 50 / 50 -1600 / -1550 Weight last 48 hrs Weight 170 lb 13.732 oz Weight 171 lb 1.259 oz Weight 171 lb Physical Exam Narrative: Per RN General: alert, NAD obese HEENT: EOMI Pulmonary: left side rhonchi Cardiovascular: rrr, nl s1s2, Abdomen: soft, nt, nd, no r/g, Extremities: n2+edema Neurologic: grossly intact Agree with above exam Urinary Catheter Management: Mendoza: Cath Placed During This Visit: yes Reason for Continuing Indwelling Catheter: Accurate Measurement of Urinary Output in Critically Ill Patients Urinary Catheter Date of Insertion: 05/04/25 Urinary Catheter Time of Insertion: 11:56 Data 05/07/25 05:00 05/07/25 05:00 Micro: Microbiology 05/04/25 07:33 Gram Stain - Final Sputum - Expectorated Sputum Sputum Culture - Final A&P Assessment and plan 1. Chronic obstructive pulmonary disease, unspecified COPD type: 2. Acute on chronic hypoxic respiratory failure: 3. Pneumonia: Plan: # Septic shock most likely secondary to pneumonia # Hypotension-most likely septic shock. Currently on midodrine and fludrocortisone daily also Levophed drip. # Ventricular arrhythmia shocked by ICD currently on amiodarone. Cardiology consulted. # Acute on chronic hypoxemic respiratory failure-most likely due to a combination of acute congestive heart failure as well as pneumonia - Wean off high flow nasal cannula as tolerated. Due to patient's cardiac arrhythmias I would recommend getting stabilized first and cardiac clearance before we consider bronchoscopy which will be a invasive high risk procedure. High risk of respiratory compromise with need for mechanical ventilation as well as cardiac instability. - Reviewed BG. 7.51/pCO2 40/PaO2 of 40-most likely was a VBG. - Reviewed chest CT shows bilateral effusions loculated pleural effusion on the left with extensive pulmonary infiltrates left more than right mixed with emphysematous changes. Concerning for parapneumonic effusion. # Bilateral pleural effusions Status post thoracentesis today 800 mL out. Could not find thoracentesis orders., New orders placed. Discussed with nurse to see if we can find thoracentesis solution to run the tests to rule out parapneumonic effusion # Pneumonia-present on admission, currently covered with IV vancomycin and Zosyn. Await cultures # Acute COPD exacerbation -Agree with Solu-Medrol Q6 as well as Pulmicort and ipratropium with Xopenex. Agree with Mucinex Acapella and vest therapy for now. Will add Brovana nebulizer to his regimen. # Severe aortic stenosis-limit fluids # CAD status post CABG # Status post ICD # Atrial fibrillation # Hyperglycemia-insulin sliding scale medium. Avoid hypoglycemia. Maintain blood sugars between 140-180. # Sedation-limit # Nutrition-okay with p.o. intake # DVT GI prophylaxis-SCDs and famotidine. Hold off on anticoagulation # Goals of care-discussed by Dr. Sen family # CODE STATUS- FULL # Disposition-Will need full ICU support follow-up The high probability of a clinically significant, sudden or life threatening deterioration of the patient's [Respiratory, cardiac and renal] system(s) required my full and direct attention, intervention and personal management. The critical care time is as shown. This time is in addition to time spent performing any reported procedures but includes the following: [x] Data and vital sign review and interpretation [x] Patient assessment, examination and intervention [x] Documentation [x] Medication orders and management Critical Care Time (min): 35 Telemedicine Consent Patient seen today via Telemedicine by agreement and consent of patient.? Telemedicine technology used during the visit includes audio and, as available, review of images.? The patient encounter is appropriate and reasonable under the circumstances given the patient?s particular presentation at this time.? The patient has been advised of the potential risks and limitations of this mode of treatment (including but not limited to the absence of in-person examination) and has agreed to be treated in a remote fashion in spite of them.? Any, and all, of the patient?s/patient?s family?s questions on this issue have been answered and I have made no promises or guarantees to the patient. PDMP PDMP Reviewed: Not Reviewed Coding Level of Care Code Critical Care >/= 30 minutes Diagnoses Chronic obstructive pulmonary disease, unspecified COPD type J44.9 COPD type: unspecified COPD Acute on chronic hypoxic respiratory failure J96.21 Pneumonia J18.9
[2025-05-07 19:00] LABS: Color, Body Fluid YELLOW
[2025-05-07 19:01] LABS: Cyto Order Verification Order Verified; PATH Referral YES
[2025-05-07 19:07] LABS: Anion Gap 14.0 (5-19); Blood Urea Nitrogen 32 mg/dL (8-23); Calcium 9.2 mg/dL (8.5-10.5); Carbon Dioxide 34 mmol/L (22-29); Chloride 97 mmol/L (98-107); Glucose 140 mg/dL (65-115); Osmolality Calculated 301 mOsm/kg (285-295); Potassium 4.0 mmol/L (3.5-5.1); Sodium 141 mmol/L (136-145)
[2025-05-07 19:21] LABS: Body Fluid Polynuclear #Cells 0.004; Monocytes # Body Fluid 0.005; Mononuclear WBC Body Fluid % 55.500 %; Polynuclear WBC Body Fluid % 44.500 %
[2025-05-07 19:26] LABS: Apprearance, Body Fluid CLEAR
[2025-05-07 19:44] LABS: Fluid Alkaline Phos. 5 IU/L
[2025-05-07] MEDS: ARFORMOTEROL 15 MCG/2 ML NEB INHALATION (20:21)
[2025-05-08] VITALS (103 sets, daily range): BP systolic 81–136; BP diastolic 55–95; PULSE 44–120; RESP 11–28; TEMP 36.2–36.8; O2SAT 85–100
[2025-05-08 04:20] LABS: Hematocrit 32.6 % (37-53); Hemoglobin 10.30 g/dL (11.27-16.99); Mean Corpuscular HGB Conc 31.6 g/dL (30-55); Mean Corpuscular Hemoglobin 29.3 pg (27-33); Mean Corpuscular Volume 92.9 fl (82-101); Nucleated Red Blood Cells % 0 %; Platelet Count 135 10^3/cmm (157-399); Red Blood Count 3.51 10^6/uL (3.85-5.65); White Blood Count 7.25 10^3/uL (3.29-11.43)
[2025-05-08 04:42] LABS: Alanine Aminotransferase 31 U/L (0-41); Albumin Level 3.4 g/dL (3.5-5.2); Alkaline Phosphatase 120 U/L (40-130); Anion Gap 12.7 (5-19); Aspartate Amino Transferase 21 U/L (0-40); Blood Urea Nitrogen 32 mg/dL (8-23); Calcium 9.0 mg/dL (8.5-10.5); Carbon Dioxide 34 mmol/L (22-29); Chloride 97 mmol/L (98-107); Globulin 1.5 g/dL (1.3-4.6); Glucose 182 mg/dL (65-115); Osmolality Calculated 302 mOsm/kg (285-295); Potassium 3.7 mmol/L (3.5-5.1); Sodium 140 mmol/L (136-145); Total Protein 4.9 g/dL (6.6-8.7)
[2025-05-08] MEDS: piperacillin-tazobactam 3.375 GM in sodium chloride 0.9% (plus) 50 ML IV ×3 (06:39→23:32)
[2025-05-08] MEDS: methylPREDNISolone sod succ 40 mg/mL INJ IVP ×3 (06:40→23:32)
[2025-05-08] MEDS: FUROsemide 10 mg/mL SDV 4mL 40 MG IVP ×3 (06:40→23:33)
[2025-05-08] MEDS: heparin 5,000 unit/mL INJ 1 mL 5000 UNIT SUBCUT ×3 (06:41→23:34)
[2025-05-08] MEDS: ARFORMOTEROL 15 MCG/2 ML NEB INHALATION ×2 (07:41→20:39)
--- NOTE | 2025-05-08 08:26 | P.PN_ITS ---
Subjective 2 Subjective: Philippe Dahl is a 74 year old male with past medical history of chronic systolic heart failure with EF of 40% status post CABG, ischemic cardiomyopathy, AICD in place for A-fib, COPD, recent hospitalization for congestive heart failure and pneumonia was discharged and readmitted within 24 hours for shortness of breath. He was found to be hypoxic with saturations in the 70s per EMS, multiple rounds of nebulizer solution given along with oxygen. Had some bloody cough/secretions, placed on BiPAP. In ER was found to be tachycardic and high flow nasal cannula started at 60 l /50 % FiO2. He was found to have pneumonia and started on IV vancomycin and Zosyn for hospital-acquired pneumonia and azithromycin for atypical coverage also placed on incentive spirometer and Acapella with chest vest. Possible exacerbation started on Solu-Medrol ipratropium and Xopenex every 4 hours with Mucinex. Today he has had increased difficulty breathing and started on BiPAP. Had an atrial tachycardia episode shocked by ICD. Currently on amiodarone drip. Cardiology consulted. Previous admission has had V tach and nonsustained episodes periodically. Electrolytes being replaced. Due to having bilateral pleural effusions thoracentesis is planned anticoagulation held. Thoracentesis done today 800 cc removed on the left side. 05/08/2025 Currently he is on 50 L / 45% FiO2 hyponasal cannula. Getting a chest vest Secretion issues as well. Does dip down to low upper 80s occasionally. Vitals/I&O/Wt Last Vital Signs Temp 98.0 F 05/08/25 04:00 Pulse 98 05/08/25 07:48 Resp 16 05/08/25 07:48 BP 111/80 05/08/25 05:00 Pulse Ox 96 05/08/25 07:48 O2 Del Method Heated High Flow 05/08/25 07:48 O2 Flow Rate 50 05/08/25 07:48 FiO2 45 05/08/25 07:48 05/07/25 05/08/25 05/08/25 22:59 06:59 14:59 Intake Total 610 / 660 490 / 1150 Output Total 1600 / 1600 950 / 2550 Balance -990 / -940 -460 / -1400 Weight last 48 hrs Weight 166 lb 7.184 oz Weight 166 lb 7.184 oz Weight 170 lb 13.732 oz Weight 171 lb 1.259 oz Physical Exam 2 Narrative: Per RN General: alert, NAD obese HEENT: EOMI Pulmonary: left side rhonchorous breath sounds Cardiovascular: rrr, nl s1s2, Abdomen: soft, nt, nd, no r/g, Extremities: n2+edema Neurologic: grossly intact Agree with above exam Urinary Catheter Management: Mendoza: Cath Placed During This Visit: yes Reason for Continuing Indwelling Catheter: Accurate Measurement of Urinary Output in Critically Ill Patients Urinary Catheter Date of Insertion: 05/04/25 Urinary Catheter Time of Insertion: 11:56 Data 05/08/25 03:50 05/08/25 03:50 A&P Assessment and plan 1. Chronic obstructive pulmonary disease, unspecified COPD type: 2. Acute on chronic hypoxic respiratory failure: 3. Pneumonia: Plan: # Septic shock most likely secondary to pneumonia # Hypotension-most likely septic shock. Currently on midodrine and fludrocortisone daily # Ventricular arrhythmia shocked by ICD currently on amiodarone. Cardiology consulted reviewed records from 04/06/2025 showing no more recurrences of VT. Plan is for angiogram over the weekend to determine whether ventricular tachycardia was due to ischemia... Continue IV Lasix 40 mg twice daily along with midodrine and fludrocortisone. Continue amiodarone infusion, digoxin 125 mcg daily and metoprolol 12.5 mg twice daily # Acute on chronic hypoxemic respiratory failure-most likely due to a combination of acute congestive heart failure as well as pneumonia - Wean off high flow nasal cannula as tolerated. Due to patient's cardiac arrhythmias I would recommend getting stabilized first and cardiac clearance before we consider bronchoscopy which will be a invasive high risk procedure. Under general anesthesia. High risk of respiratory compromise with need for mechanical ventilation as well as cardiac instability. - Reviewed BG. 7.51/pCO2 40/PaO2 of 40-most likely was a VBG. 05/07/2025 - Reviewed chest CT shows bilateral effusions loculated pleural effusion on the left with extensive pulmonary infiltrates left more than right mixed with emphysematous changes. Concerning for parapneumonic effusion. -Will get chest x-ray today. # Bilateral pleural effusions Status post thoracentesis today 800 mL out. -Reviewed thoracentesis results-pH of 8.5, glucose 212, LDH 53, protein 0.6-most likely transudative reviewed results 05/08/2025. Will get chest x-ray again today to determine the need for bronchoscopy possibly on Saturday if he has increasing oxygen requirements mucous plugging issues on Saturday. # Pneumonia-present on admission, currently covered with IV vancomycin and Zosyn. Await cultures-no growth till date 05/08/2025 # Acute COPD exacerbation -Agree with Solu-Medrol Q6 as well as Pulmicort and ipratropium with Xopenex. - Continue Mucinex Acapella and vest therapy for now. Continue Brovana nebulizer to his regimen. # Severe aortic stenosis- limit fluids # CAD status post CABG - Pending possible cath # Status post ICD # Atrial fibrillation # Hyperglycemia-insulin sliding scale medium. Avoid hypoglycemia. Maintain blood sugars between 140-180. # Sedation-limit # Nutrition-okay with p.o. intake # DVT GI prophylaxis-SCDs and famotidine. Hold off on anticoagulation # Goals of care-discussed by Dr. Sen family # CODE STATUS- FULL # Disposition-Will need full ICU support follow-up Medical decision making level- High High MDM includes number and complexity of problems actively addressed during encounter, amount and/or complexity of data reviewed/ordered [ previous or external records, resulted lab(s)/test(s), ordered lab(s)/test(s), independent historian, independent test interpretation and other healthcare professional discussion] and described risk of complication, morbidity or mortality of management as documented This documentation was created by [email or web address] learning technologies specialist software (known for inherent learning technologies specialist error). Every effort was made to assure accuracy of learning technologies specialist. Any obvious errors or omissions should be clarified with the author of the document Telemedicine Consent Patient seen today via Telemedicine by agreement and consent of patient.? Telemedicine technology used during the visit includes audio and, as available, review of images.? The patient encounter is appropriate and reasonable under the circumstances given the patient?s particular presentation at this time.? The patient has been advised of the potential risks and limitations of this mode of treatment (including but not limited to the absence of in-person examination) and has agreed to be treated in a remote fashion in spite of them.? Any, and all, of the patient?s/patient?s family?s questions on this issue have been answered and I have made no promises or guarantees to the patient. PDMP PDMP Reviewed: Not Reviewed Attestations 2 Medical Necessity Statement*: On high flow nasal cannula Coding Level of Care Code 23252 Diagnoses Chronic obstructive pulmonary disease, unspecified COPD type J44.9 COPD type: unspecified COPD Acute on chronic hypoxic respiratory failure J96.21 Pneumonia J18.9
--- NOTE | 2025-05-08 10:33 | XRR_ITS ---
PROCEDURE INFORMATION: Exam: XR Chest Exam date and time: 05/08/2025 12:56 PM Age: 74 years old Clinical indication: Cough and shortness of breath; Prior surgery; Surgery date: 6+ months; Surgery type: Cabg, defib; Additional info: Post thoracentesis/pneumonia followup TECHNIQUE: Imaging protocol: Radiologic exam of the chest. Views: 1 view. COMPARISON: CR XR chest 1V portable [id number] 05/07/2025 4:05 PM FINDINGS: Lungs: There are mild bilateral interstitial opacity suggesting low-grade pulmonary edema, improved from 05/07/2025. Pleural spaces: No pleural effusion. No pneumothorax. Heart/Mediastinum: Normal cardiomediastinal sillhouette. Bones/joints: Unremarkable. Tubes, catheters, and devices: Left chest transvenous pacemaker leads are in place. There is a left atrial appendage clip. Right upper extremity PICC line is seen with tip in the superior vena cava. XR/XR chest 1V portable [id number] IMPRESSION: Mild bilateral interstitial opacity suggesting low-grade pulmonary edema, improved from 05/07/2025.
--- NOTE | 2025-05-08 15:33 | PC.PT ---
Patient had to go back on BiPAP this morning after having thoracentesis yesterday with elevated HR to 114 and chest vest on. Pt had just been transferred to chair to be put on chest vest.
--- NOTE | 2025-05-08 16:33 | PM.PN ---
Subjective Subjective: No acute events overnight. Today morning examination patient lying comfortably in bed. Denies any nausea, vomiting. Appreciate urine output. When seen first in the morning was on 50 to 60%. He has been weaned down. Vitals/I&O/Wt Last Vital Signs Temp 97.2 F L 05/08/25 12:00 Pulse 94 05/08/25 14:00 Resp 20 H 05/08/25 14:00 BP 94/63 05/08/25 12:15 Pulse Ox 98 05/08/25 14:00 O2 Del Method Heated High Flow 05/08/25 14:00 O2 Flow Rate 10 05/08/25 14:14 FiO2 40 05/08/25 14:00 05/08/25 05/08/25 05/08/25 06:59 14:59 22:59 Intake Total 490 / 1150 250 / 250 Output Total 950 / 2550 150 / 150 Balance -460 / -1400 100 / 100 Weight last 48 hrs Weight 75.5 kg Weight 75.5 kg Weight 77.5 kg Weight 77.6 kg Physical Exam Narrative: General: No acute distress, AO x3, extremely hard of hearing HEENT: PERRLA, pupils bilaterally equal and reactive Chest: Bronchial breath sounds over lung espino, coarse crackles present in left middle and lower zone, right middle zone left more than right, posterior more than anterior CVS: S1-S2 irregularly irregular,, pansystolic murmur at apex rating to anterior axillary line, S3 gallop, tachycardia, no gallops, no rubs Abdomen: Soft, nontender, no organomegaly, bowel sounds present Neuro: No focal deficits, no facial deformity, AO x3, power 5/5 in all limbs Urinary Catheter Management: Mendoza: Cath Placed During This Visit: yes Reason for Continuing Indwelling Catheter: Accurate Measurement of Urinary Output in Critically Ill Patients Urinary Catheter Date of Insertion: 05/04/25 Urinary Catheter Time of Insertion: 11:56 Data 05/08/25 03:50 05/08/25 03:50 Micro: Microbiology 05/04/25 07:33 Gram Stain - Final Sputum - Expectorated Sputum Sputum Culture - Final A&P Assessment and plan 1. Shock: BP soft in setting of possible combination of Adrenal insufficiency, Severe , and possible septic shock. Did have low cortisol on previous admission with low response to cosyntropin stimulation test. Currently on steroids for COPD exacerbation. Continue with fludrocortisone 0.1 mg daily. Wean Levophed keeping mean around for 65. Continue with midodrine 15 mg 3 times daily. 2. Ventricular arrhythmia: Had VT and nonsustained VT on previous admission. Today morning again had an episode of atrial tachycardia shocked by ICD. Amiodarone 150 mg IV bolus followed by drip. Will consult cardiology further recommendation. Did have cardiac stress test on previous admission to workup for ACS given VT and nonsustained V. tach. IV magnesium 1 g, IV calcium one-time. Monitor magnesium and phosphorus level daily. Target potassium around 4, magnesium around 2. 3. Acute on chronic hypoxic respiratory failure: Most likely in setting of acute on chronic systolic congestive heart failure along with pneumonia and COPD exacerbation. Does have bilateral pleural effusion as well. Plan for thoracentesis. Hold off on anticoagulation for now. Oxygen supplementation keeping saturation over 90%. Wean HHF accordingly. 4. Pneumonia: Appreciate chest x-ray and CTA chest. Concerning for significant consolidation in bilateral upper and middle lobe. Concern for fluid overload as well. Cannot rule out aspiration pneumonia. Diet advanced after speech evaluation. Follow-up sputum culture, appreciate trend procalcitonin, negative urine bacterial antigen, follow-up blood culture, negative respiratory viral panel. Continue treatment for hospital-acquired pneumonia with IV vancomycin and Zosyn. Negative MRSA swab. For now we will continue vancomycin 24 hours. Will monitor response and decide about further vancomycin. F/u PJP PCR, fingitel, fungal culture, LDH Aggressive pulmonary toilet with I-S and Acapella. C/w chest vest for now. 5. Chronic obstructive pulmonary disease, unspecified COPD type: Continue Solmedrol IV 40 mg Q6 hourly. Inhalation treatment with Pulmicort twice daily, ipratropium and Xopenex every 4 hour along with Mucomyst. 6. Acute on chronic heart failure with reduced ejection fraction (HFrEF, <= 40%) and combined systolic and diastolic dysfunction: Appreciate recent echocardiogram with a EF of 40%, moderately decreased LV function, akinesis of mid to distal anterior and apical region, moderate MR. Change lasix to 40 mg IV daily. Strict input output charting, daily weights. Fluid restriction to less than 1500. Monitor renal functions. Mendoza catheter. 7. Aortic stenosis, severe: Seen on echocardiogram from 04/28. 8. CAD (coronary artery disease): Appreciate recent stress test. Troponin cycled being done from ER. Continue with aspirin, statin, add low-dose beta-ketty. Monitor for chest pain. 9. ICD (implantable cardioverter-defibrillator) in place: 10. PAF (paroxysmal atrial fibrillation): C/w home dose of metoprolol and digoxin. Stable Dig levels. Holding off on Eliquis for now given need for thoracentesis 11. Hypotension: Plan: CODE STATUS: Discussed in detail with the patient with granddaughter at bedside. Daughter will be DPOA. Patient does not want any extensive chest compression or mechanical ventilation but is okay with cardioversion if needed. Dysphagia level 5 diet Protonix for PUD prophylaxis SCD for DVT prophylaxis given hemoptysis currently. If stable hemoglobin stable can start on full dose Lovenox after thoracentesis. Out of bed to chair. Plan for the day: Appreciate cardiology and pulmonary recommendations. Appreciate fluid studies. Concern for transudative. Will await culture results. For now continue with midodrine 15 mg 3 times daily, fludrocortisone 0.1 mg daily. Continue Solu-Medrol 40 mg Q8 hourly. PJP PCR negative. Continue with aggressive IV diuresis with Lasix 40 mg Q8 hourly. Monitor urine output. Monitor BMP in afternoon follow-up electrolytes. Will replace potassium accordingly. N.p.o. after midnight. Plan for cardiac angiogram in AM. Continue with amiodarone 4 mg twice daily. Less ectopy. Patient not tolerating beta-blockers for now given soft blood pressures. Possible plan for bronchoscopy with pulmonary team coming week. For now continue with Pulmicort twice daily, DuoNeb every 6 hour. Inhaler added as per pulmonary team. Physical therapy. Out of bed to chair. Diet as per speech evaluation. Analgesia: Morphine 2 mg every 4 hours as needed Glycemic control: Low-dose protocol Nutrition: Dysphagia level 6 mildly thickened liquid CODE STATUS: DNR/DNI PUD prophylaxis: Protonix DVT prophylaxis: SCD for now. Will start on heparin 5000 every 8 hourly postthoracentesis. Discharge planning: Discussed in detail with patient's family at bedside. Physical therapy evaluation. High likelihood of needing SNF versus LTAC depending on clinical improvement. Continue with care at ICU This documentation was created by [employer] manager intensive care software. Every effort was made to ensure accuracy of manager intensive care. Any obvious errors or omissions should be clarified with the author of the document. PDMP PDMP Reviewed: Not Reviewed Attestations Medical Necessity Statement*: Requested hospitalization for management of ventricular tachycardia, severe , congestive heart failure, bilateral pneumonia, respiratory failure Critical Care Time: The high probability of a clinically significant, sudden or life threatening deterioration of the patient's [Pulm, cardiac, renal] system(s) required my full and direct attention, intervention and personal management. The critical care time is as shown. This time is in addition to time spent performing any reported procedures but includes the following: [x] Data and vital sign review and interpretation [x] Patient assessment, examination and intervention [x] Documentation [x] Medication orders and management Critical Care Time (min): 55 Coding Level of Care Code Critical Care >/= 30 minutes Critical care time (in minutes): 55 The high probability of a clinically significant, sudden or life threatening deterioration, as referenced in this documentation, required my full and direct attention, intervention and personal management. The critical care time shown is in addition to time spent performing any reported separately billable procedures and includes the following: [x] Data and vital sign review and interpretation [x] Patient assessment, examination and intervention [x] Medication orders and management [x] Patient/Family updates as able [x] Care Coordination and Documentation. Diagnoses Shock R57.9 Ventricular arrhythmia I49.9 Acute on chronic hypoxic respiratory failure J96.21 Pneumonia J18.9 Laterality: bilateral Lung location: lower lobe of lung Pneumonia type: due to unspecified organism Chronic obstructive pulmonary disease, unspecified COPD type J44.9 COPD type: unspecified COPD Acute on chronic heart failure with reduced ejection fraction (HFrEF, <= 40%) and combined systolic and diastolic dysfunction I50.43 Aortic stenosis, severe I35.0 CAD (coronary artery disease) I25.10 Associated angina: without angina Coronary Disease-Associated Artery/Lesion type: [place] artery [place] vs. transplanted heart: [place] heart ICD (implantable cardioverter-defibrillator) in place Z95.810 PAF (paroxysmal atrial fibrillation) I48.0 Hypotension I95.9
[2025-05-08] MEDS: lactulose oral liq 20 gm/30 mL UDC 10 GM PO (16:59)
--- NOTE | 2025-05-08 18:31 | PC.NURSE ---
Addendum entered by Segundo Li RN 05/08/25 18:32: Patient reports no bowel movement since arrival (). Abdomen is soft and non-tender, bowel sounds hypoactive. PRN lactulose given . Original Note: Shift SUmmary: Up to a chair for entire day. Oxygen reduced from 50L/50% HHF down to 8L HF. Total day shift intake: 940 total urine output: 1025 NPO at midnight. ANgiogram tommorow.
--- NOTE | 2025-05-08 21:52 | PC.NURSE ---
Received a call from manager cath lab - Per Dr. Hollins, patient's angiogram will be delayed until Saturday, 05/10, due to hemoptysis.
[2025-05-09] VITALS (90 sets, daily range): BP systolic 91–121; BP diastolic 62–86; PULSE 0–118; RESP 11–35; TEMP 36.2–37; O2SAT 88–100
[2025-05-09 02:45] LABS: Hematocrit 30.1 % (37-53); Hemoglobin 9.80 g/dL (11.27-16.99); Mean Corpuscular HGB Conc 32.6 g/dL (30-55); Mean Corpuscular Hemoglobin 29.5 pg (27-33); Mean Corpuscular Volume 90.7 fl (82-101); Nucleated Red Blood Cells % 0 %; Platelet Count 122 10^3/cmm (157-399); Red Blood Count 3.32 10^6/uL (3.85-5.65); White Blood Count 6.92 10^3/uL (3.29-11.43)
[2025-05-09 03:02] LABS: Alanine Aminotransferase 28 U/L (0-41); Albumin Level 3.2 g/dL (3.5-5.2); Alkaline Phosphatase 105 U/L (40-130); Anion Gap 9.2 (5-19); Aspartate Amino Transferase 18 U/L (0-40); Blood Urea Nitrogen 34 mg/dL (8-23); Calcium 8.8 mg/dL (8.5-10.5); Carbon Dioxide 37 mmol/L (22-29); Chloride 96 mmol/L (98-107); Creatinine Clr Calc Pharmacy 77.6543; Globulin 1.4 g/dL (1.3-4.6); Glucose 185 mg/dL (65-115); Osmolality Calculated 300 mOsm/kg (285-295); Potassium 3.2 mmol/L (3.5-5.1); Sodium 139 mmol/L (136-145); Total Protein 4.6 g/dL (6.6-8.7)
--- NOTE | 2025-05-09 03:10 | PC.NURSE ---
Contacted. Dr. Benton in reference to patient's morning potassium lab at 3.2. Received orders for 40meq potassium PO once.
[2025-05-09] MEDS: piperacillin-tazobactam 3.375 GM in sodium chloride 0.9% (plus) 50 ML IV ×3 (07:00→22:46)
[2025-05-09] MEDS: FUROsemide 10 mg/mL SDV 4mL 40 MG IVP ×3 (07:01→22:46)
[2025-05-09] MEDS: methylPREDNISolone sod succ 40 mg/mL INJ IVP ×3 (07:01→22:45)
[2025-05-09] MEDS: heparin 5,000 unit/mL INJ 1 mL 5000 UNIT SUBCUT ×3 (07:01→22:46)
[2025-05-09] MEDS: ARFORMOTEROL 15 MCG/2 ML NEB INHALATION ×2 (07:39→19:58)
--- NOTE | 2025-05-09 10:12 | P.PN_ITS ---
Subjective 2 Subjective: Patient was seen this morning, sitting up to side of bed, his girlfriend is at bedside, he is alert oriented x 3, following all commands, hard of hearing, does report lower extreme edema, no shortness of breath, no chest pain, no fevers, no chills, does have a cough Vitals/I&O/Wt Last Vital Signs Temp 97.6 F 05/09/25 04:00 Pulse 114 H 05/09/25 09:00 Resp 33 H 05/09/25 09:00 BP 91/62 05/09/25 09:00 Pulse Ox 91 05/09/25 09:00 O2 Del Method Nasal Cannula 05/09/25 09:00 O2 Flow Rate 3 05/09/25 07:56 FiO2 40 05/08/25 14:00 05/08/25 05/09/25 05/09/25 22:59 06:59 14:59 Intake Total 1270 / 1520 350 / 1870 490 / 490 Output Total 875 / 1025 1050 / 2075 Balance 395 / 495 -700 / -205 490 / 490 Weight last 48 hrs Weight 76.5 kg Weight 75.5 kg Weight 75.5 kg Physical Exam 2 Const: COMMON NORMALS: no acute distress and patient oriented x3 Resp: COMMON NORMALS: normal respiratory effort, No retractions, No use of accessory muscles and clear to auscultation bilaterally AUSCULTATION: clear to auscultation bilaterally Cardio: COMMON NORMALS: regular rate, regular rhythm, S1 normal heart sound present and S2 normal heart sound present RATE: regular rate RHYTHM: r egular rhythm HEART SOUNDS: S1 normal heart sound present and S2 normal heart sound present GI: COMMON NORMALS: Normal to inspection, nondistended, normoactive bowel sounds present and non-tender Extremity: NARRATIVE EXTREMITY EXAM: 2+ edema bilateral lower extremity Neuro: COMMON NORMALS: patient oriented x3, CN's II-XII intact bilaterally and moves all extremities Psych: COMMON NORMALS: mental status grossly normal Urinary Catheter Management: Mendoza: Cath Placed During This Visit: yes Reason for Continuing Indwelling Catheter: Accurate Measurement of Urinary Output in Critically Ill Patients Urinary Catheter Date of Insertion: 05/04/25 Urinary Catheter Time of Insertion: 11:56 Data 05/09/25 02:33 05/09/25 02:33 Micro: Microbiology 05/07/25 15:32 Anaerobic Culture - Preliminary Pleural Fluid 05/07/25 15:32 Gram Stain - Final Pleural Fluid 05/04/25 07:33 Fungal Smear - Preliminary Sputum - Expectorated Sputum A&P Assessment and plan 1. Shock: 2. Ventricular arrhythmia: 3. Acute on chronic hypoxic respiratory failure: 4. Pneumonia: 5. Chronic obstructive pulmonary disease, unspecified COPD type: 6. Acute on chronic heart failure with reduced ejection fraction (HFrEF, <= 40%) and combined systolic and diastolic dysfunction: 7. Aortic stenosis, severe: Seen on echocardiogram from 04/28. 8. CAD (coronary artery disease): 9. ICD (implantable cardioverter-defibrillator) in place: 10. PAF (paroxysmal atrial fibrillation): 11. Hypotension: Plan: Acute hypoxic respiratory failure - Multifactorial - systolic CHF, pulmonary edema - Pneumonia - Bilateral pleural effusions - COPD exacerbation -Requiring heated high flow, down to nasal cannula CT/CT angio chest PE protcl [id number] IMPRESSION: 1. No pulmonary embolism. 2. Significant progression of pneumonia and edema and groundglass attenuation throughout both lungs since 04/27/2025. 3. Small bilateral pleural effusions. 4. Cardiomegaly. 5. Reactive mediastinal and hilar adenopathy. 6. Reidentified is a low density tubular lesion in the prevascular space which abuts the aortic arch. This may be related to prior surgeries. This has been present since the initial CT from 03/31/2025. Benign sterile postoperative collection. Mediastinal abscess would be difficult to exclude. There has been no progression since 03/31/2025. 7. Tricuspid regurgitation into the hepatic veins. Plan -Monitor respiratory status closely - Solu-Medrol - DuoNeb -Brovana - Vancomycin - Zosyn - Lasix 40 IV every 8 hours Shock -Multifactorial - Concern for septic shock secondary to pneumonia - Concerns for adrenal insufficiency Blood -Levophed to maintain MAP greater than 65, currently off - Midodrine 15 mg 3 times daily - Fludrocortisone Bilateral pleural effusions - History of thoracentesis, left, 800 cc yellow clear fluid - Transudative - Cultures so far negative COPD exacerbation - As above Moderate to Severe aortic stenosis - Monitor fluid status CAD status post CABG Limited echo Moderately increased left ventricular cavity size. Moderately decreased left ventricular systolic function. Left ventricular ejection fraction is estimated at 40 %. There appeared to be mid to distal anterior and apical akinesis suggestive of ischemic heart disease. Severely calcified aortic valve probably moderate to severe aortic valve stenosis There is no pericardial effusion. stress test 04/2025 IMPRESSIONS 1. Myocardial perfusion imaging revealing large area of persistent decreased tracer uptake involving the anterior, anterolateral, inferolateral, inferior and all the apical segments suggesting extensive scarring in the distribution of all the 3 coronary arteries with possible subtle areas of carolynn-infarction ischemia.-(Summed stress score of 39 with resting score of 40) 2. Diminished LV ejection fraction of 32%. 3. Segmental wall motion analysis revealing severe diffuse hypokinesis of the left ventricle with a dyskinetic LV apex. 4. Moderately dilated LV cavity. No similar previous studies are available for comparison - Coronary angiogram planned for tomorrow - Aspirin, statin Atrial fibrillation - Eliquis on hold - On heparin - Beta-ketty on hold due - On amiodarone 400mg twice daily - Digoxin Ventricular arrhythmia - Status post ICD shock - Cardiology consulted - Plan on angiogram Anemia, monitor hemoglobin 9.8 Acute chronic thrombocytopenia 122, monitor Disposition: Currently requiring skilled level of care Discharge planning: SNF versus LTAC Pain control: Morphine Glycemic control: Low-dose insulin sliding scale Nutrition: Dysphagia level 6 CODE STATUS DNR/DNI GI prophylaxis Protonix DVT prophylaxis SCDs, heparin 500 mg every 8 hours Activity: Out of bed into a chair plan for today: IV antibiotics, IV diuretics, monitor respiratory status, n.p.o. midnight replace potassium, repeat BMP this afternoon PDMP PDMP Reviewed: Not Reviewed Attestations 2 Medical Necessity Statement*: Patient requires hospitalization for respiratory failure secondary pneumonia, CHF, COPD, requiring angiogram for tomorrow Diagnoses Shock R57.9 Ventricular arrhythmia I49.9 Acute on chronic hypoxic respiratory failure J96.21 Pneumonia J18.9 Laterality: bilateral Lung location: lower lobe of lung Pneumonia type: due to unspecified organism Chronic obstructive pulmonary disease, unspecified COPD type J44.9 COPD type: unspecified COPD Acute on chronic heart failure with reduced ejection fraction (HFrEF, <= 40%) and combined systolic and diastolic dysfunction I50.43 Aortic stenosis, severe I35.0 CAD (coronary artery disease) I25.10 Associated angina: without angina Coronary Disease-Associated Artery/Lesion type: false pass artery [place] vs. transplanted heart: false pass heart ICD (implantable cardioverter-defibrillator) in place Z95.810 PAF (paroxysmal atrial fibrillation) I48.0 Hypotension I95.9
--- NOTE | 2025-05-09 12:51 | P.PN_ITS ---
Subjective 2 Subjective: Philippe Dahl is a 74 year old male with past medical history of chronic systolic heart failure with EF of 40% status post CABG, ischemic cardiomyopathy, AICD in place for A-fib, COPD, recent hospitalization for congestive heart failure and pneumonia was discharged and readmitted within 24 hours for shortness of breath. He was found to be hypoxic with saturations in the 70s per EMS, multiple rounds of nebulizer solution given along with oxygen. Had some bloody cough/secretions, placed on BiPAP. In ER was found to be tachycardic and high flow nasal cannula started at 60 l /50 % FiO2. He was found to have pneumonia and started on IV vancomycin and Zosyn for hospital-acquired pneumonia and azithromycin for atypical coverage also placed on incentive spirometer and Acapella with chest vest. Possible exacerbation started on Solu-Medrol ipratropium and Xopenex every 4 hours with Mucinex. Today he has had increased difficulty breathing and started on BiPAP. Had an atrial tachycardia episode shocked by ICD. Currently on amiodarone drip. Cardiology consulted. Previous admission has had V tach and nonsustained episodes periodically. Electrolytes being replaced. Due to having bilateral pleural effusions thoracentesis is planned anticoagulation held. Thoracentesis done today 800 cc removed on the left side. 05/08/2025 Currently he is on 50 L / 45% FiO2 hyponasal cannula. Getting a chest vest Secretion issues as well. Does dip down to low upper 80s occasionally. 05/09/2025 Still coughing up some old bloody unrested sputum. Only on 5 L nasal cannula. Using Acapella as well as a chest vest regularly at least twice a day. There is stable. Vitals/I&O/Wt Last Vital Signs Temp 97.6 F 05/09/25 04:00 Pulse 86 05/09/25 11:52 Resp 33 H 05/09/25 09:00 BP 91/62 05/09/25 09:00 Pulse Ox 91 05/09/25 09:00 O2 Del Method Nasal Cannula 05/09/25 09:00 O2 Flow Rate 3 05/09/25 07:56 FiO2 40 05/08/25 14:00 05/08/25 05/09/25 05/09/25 22:59 06:59 14:59 Intake Total 1270 / 1520 350 / 1870 540 / 540 Output Total 875 / 1025 1049 / 2074 Balance 395 / 495 -700 / -205 540 / 540 Weight last 48 hrs Weight 168 lb 10.458 oz Weight 166 lb 7.184 oz Weight 166 lb 7.184 oz Physical Exam 2 Narrative: Per RN General: alert, NAD obese HEENT: EOMI Pulmonary: left side rhonchorous breath sounds Cardiovascular: rrr, nl s1s2, Abdomen: soft, nt, nd, no r/g, Extremities: n2+edema Neurologic: grossly intact Agree with above exam Urinary Catheter Management: Mendoza: Cath Placed During This Visit: yes Reason for Continuing Indwelling Catheter: Accurate Measurement of Urinary Output in Critically Ill Patients Urinary Catheter Date of Insertion: 05/04/25 Urinary Catheter Time of Insertion: 11:56 Data 05/09/25 02:33 05/09/25 02:33 Micro: Microbiology 05/07/25 15:32 Gram Stain - Final Pleural Fluid Body Fluid Culture - Preliminary 05/07/25 15:32 Anaerobic Culture - Preliminary Pleural Fluid 05/04/25 07:33 Fungal Smear - Preliminary Sputum - Expectorated Sputum A&P Assessment and plan 1. Chronic obstructive pulmonary disease, unspecified COPD type: 2. Acute on chronic hypoxic respiratory failure: 3. Pneumonia: Plan: # Septic shock most likely secondary to pneumonia # Hypotension-most likely septic shock. Currently on midodrine and fludrocortisone daily # Ventricular arrhythmia shocked by ICD currently on amiodarone. Cardiology consulted reviewed records from 04/06/2025 showing no more recurrences of VT. Plan is for angiogram over the weekend to determine whether ventricular tachycardia was due to ischemia... Continue IV Lasix 40 mg twice daily along with midodrine and fludrocortisone. Continue amiodarone infusion, digoxin 125 mcg daily and metoprolol 12.5 mg twice daily Patient is currently n.p.o. after midnight awaiting CABG tomorrow. # Acute on chronic hypoxemic respiratory failure-most likely due to a combination of acute congestive heart failure as well as pneumonia --Nasal cannula weaned off 05/08/2025. Currently on 5 L nasal cannula improving slowly. Due to patient's cardiac arrhythmias I would recommend getting stabilized first and cardiac clearance before we consider bronchoscopy which will be a invasive high risk procedure. Under general anesthesia. High risk of respiratory compromise with need for mechanical ventilation as well as cardiac instability. Will obtain consent today. Risks explained to the at bedside 05/09/2025. We may not need to do a bronchoscopy since he is clinically improving but he if he has any mucous secretion clearance issues we will tentatively plan this on Saturday. - Reviewed BG. 7.51/pCO2 40/PaO2 of 40-most likely was a VBG. 05/07/2025 - Reviewed chest CT shows bilateral effusions loculated pleural effusion on the left with extensive pulmonary infiltrates left more than right mixed with emphysematous changes. Concerning for parapneumonic effusion. - Chest x-ray reviewed-05/08/25-pulmonary vascular congestion improved from 2 days ago. Pneumonialike infiltrates are also resolving. COPD changes noted. Left costophrenic angle looks clear. He may need CT scan later to reevaluate the loculated pleural effusion. White Count normal and since his chest x-ray is clearing we will hold off on the need for chest tube placement and only clinically monitoring for now. If chest x-ray worsens he might need a repeat CT and consideration for chest tube in the future. # Bilateral pleural effusions Status post thoracentesis today 800 mL out. -Reviewed thoracentesis results-pH of 8.5, glucose 212, LDH 53, protein 0.6-most likely transudative reviewed results 05/08/2025. # Pneumonia-present on admission, currently covered with IV vancomycin and Zosyn. Await cultures-no growth till date 05/08/2025 so far negative. Will stop vancomycin tomorrow. # Acute COPD exacerbation -Agree with Solu-Medrol Q6 as well as Pulmicort and ipratropium with Xopenex. - Continue Mucinex Acapella and vest therapy for now. Continue Brovana nebulizer to his regimen. # Severe aortic stenosis- limit fluids # CAD status post CABG - Pending possible cath # Status post ICD # Atrial fibrillation # Hyperglycemia-insulin sliding scale medium. Avoid hypoglycemia. Maintain blood sugars between 140-180. # Sedation-limit # Nutrition-okay with p.o. intake # DVT GI prophylaxis-SCDs and famotidine. Hold off on anticoagulation # Goals of care-discussed by Dr. Sen family # CODE STATUS- FULL # Disposition-Will need full ICU support follow-up Medical decision making level- High High MDM includes number and complexity of problems actively addressed during encounter, amount and/or complexity of data reviewed/ordered [ previous or external records, resulted lab(s)/test(s), ordered lab(s)/test(s), independent historian, independent test interpretation and other healthcare professional discussion] and described risk of complication, morbidity or mortality of management as documented This documentation was created by [employer] lens maker software (known for inherent lens maker error). Every effort was made to assure accuracy of lens maker. Any obvious errors or omissions should be clarified with the author of the document Telemedicine Consent Patient seen today via Telemedicine by agreement and consent of patient.? Telemedicine technology used during the visit includes audio and, as available, review of images.? The patient encounter is appropriate and reasonable under the circumstances given the patient?s particular presentation at this time.? The patient has been advised of the potential risks and limitations of this mode of treatment (including but not limited to the absence of in-person examination) and has agreed to be treated in a remote fashion in spite of them.? Any, and all, of the patient?s/patient?s family?s questions on this issue have been answered and I have made no promises or guarantees to the patient. PDMP PDMP Reviewed: Not Reviewed Attestations 2 Medical Necessity Statement*: Okay to transfer to floor from pulmonary standpoint. Coding Level of Care Code 09349 Diagnoses Chronic obstructive pulmonary disease, unspecified COPD type J44.9 COPD type: unspecified COPD Acute on chronic hypoxic respiratory failure J96.21 Pneumonia J18.9
[2025-05-09 13:25] LABS: Anion Gap 15.3 (5-19); Blood Urea Nitrogen 33 mg/dL (8-23); Calcium 8.8 mg/dL (8.5-10.5); Carbon Dioxide 31 mmol/L (22-29); Chloride 94 mmol/L (98-107); Glucose 413 mg/dL (65-115); Osmolality Calculated 309 mOsm/kg (285-295); Potassium 3.3 mmol/L (3.5-5.1); Sodium 137 mmol/L (136-145)
--- NOTE | 2025-05-09 13:41 | PC.NURSE ---
Advised patient and his girlfriend to avoid sugar packets in drinks, educated provided on diabetic diet. Patient and family require further teachings.
--- NOTE | 2025-05-09 15:08 | PC.NURSE ---
Blood glucose by finger stick 412, Dr. Restrepo notified and order received to treat patient with sliding scale insulin order. Patient received 16 units. Patient found to be eating Cheetos and drinking a regular soda. Patient and his girlfriend at bedside were educated again on diabetic diet and to NOT drink sugary drinks. Patient stated something to the effect of, I didn't know I was on a special diet. Patients girlfriend visibly displeased stated, I just don't buy that. Fluid restriction updated on white board to reflect remaining fluid available.
[2025-05-10] VITALS (54 sets, daily range): BP systolic 89–116; BP diastolic 61–81; PULSE 71–241; RESP 14–29; TEMP 36.1–36.7; O2SAT 83–100
[2025-05-10 05:15] LABS: Hematocrit 32.7 % (37-53); Hemoglobin 10.30 g/dL (11.27-16.99); Mean Corpuscular HGB Conc 31.5 g/dL (30-55); Mean Corpuscular Hemoglobin 29.4 pg (27-33); Mean Corpuscular Volume 93.4 fl (82-101); Nucleated Red Blood Cells % 0 %; Platelet Count 118 10^3/cmm (157-399); Red Blood Count 3.50 10^6/uL (3.85-5.65); White Blood Count 8.43 10^3/uL (3.29-11.43)
[2025-05-10 05:31] LABS: Digoxin 0.9 ng/mL (0.6-1.2)
[2025-05-10 05:43] LABS: Anion Gap 11.6 (5-19); Blood Urea Nitrogen 27 mg/dL (8-23); Calcium 8.6 mg/dL (8.5-10.5); Carbon Dioxide 34 mmol/L (22-29); Chloride 94 mmol/L (98-107); Glucose 212 mg/dL (65-115); NT Pro B Type Natriuretic Pept 18236 pg/mL (0-125); Osmolality Calculated 293 mOsm/kg (285-295); Potassium 3.6 mmol/L (3.5-5.1); Sodium 136 mmol/L (136-145)
[2025-05-10] MEDS: FUROsemide 10 mg/mL SDV 4mL 40 MG IVP ×2 (06:36→20:13)
[2025-05-10] MEDS: heparin 5,000 unit/mL INJ 1 mL 5000 UNIT SUBCUT (06:36)
[2025-05-10] MEDS: methylPREDNISolone sod succ 40 mg/mL INJ IVP (06:36)
[2025-05-10] MEDS: piperacillin-tazobactam 3.375 GM in sodium chloride 0.9% (plus) 50 ML IV ×2 (06:37→16:35)
--- NOTE | 2025-05-10 06:53 | XACV_ITS ---
Exam Room: [facility] Ht: 178 cm Wt: 76 kg BSA: 1.95 m2 Gender: Male : 1950 Any Known Allergies: Other Exam Priority: Routine Procedure(s): Procedure Description: Diagnostic procedure Procedure Description: Venous Graft Catheterization Procedure Description: ROMAN Graft Catheterization Procedure Description: Coronary Angiography Diagnostic Cath Status: Urgent Diagnostic Findings * INDICATION: Ventricular tachycardia. * Left Main has no significant disease. * Mid Left Anterior Descending: chronic total occlusion, ЮЛИЯ: 0 flow. Large size diagonal artery is patent with a patent prior stent with moderate in-stent restenosis.. * Proximal Right Coronary Artery: subtotal occlusion, ЮЛИЯ: 1 flow. Very heavily calcified vessel. Has left to right collaterals. Distal RCA has severe calcified stenosis. * Proximal Circumflex: chronic total occlusion, ЮЛИЯ: 0 flow. * BYPASS GRAFTS: ROMAN to LAD is patent. This also gives collaterals to the RCA. SVG to RCA and OM are both occluded.. * Coronary angiography shows right dominance. Conclusions 1. Severe multivessel [place]ongo coronary artery disease. Patent ROMAN to LAD. SVG grafts were occluded.. 2. Ventricular tachycardia is scar based (stress test showed prior infarcts with very minimal reversibility). Continue amiodarone. If has frequent VT episodes in future, will refer to EP for VT ablation. Recommendations * Aggressive medical therapy for coronary artery disease. * Outpatient cardiology follow up in 2 weeks. Interventional RX Recommendation: medical therapy and/or counseling Diagnostic RX Recommendation: medical therapy and/or counseling Pressures Phase:Rest AO : 79 / 61 ( 71 ) @ 12:27:00 PM Clinical Evaluation EBL: 5mL-10mL Procedural Details Procedure Consent Obtained. Pre-Procedure Time Out. Identified patient by full name and date of as verbalized by the patient/guarantor. Does the consent match the physician's order: Yes. Accurate & Complete Informed Consent: Yes. Inpatient/Outpatient History & Physical on Chart: Yes. If H&P is completed, is and addenduem needed: No. Visualize and Verify Site with Patient/Guarantor: N/A. Relevant Radiology Images available: Yes. The risks, benefits, and alternatives of sedation and/or procedure were discussed by physician. The patient agrees to continue. Procedure started. [facility] Clinical Fraility Score: 7: Severely Frail. Research Program Intern Indications: Cardiac Arrhythmia/Vtach. Chest Pain Symptom Assessment: Asymptomatic. Cardiovascular Instability: No. Correct patient, site and procedure confirmed by cath team. PERRLA. Strong, equal hand hog scalder bilaterally. Lungs with left upper lobe crackles. Coarse t/o. IV Site on Arrival: double lumen PICC line to the right bicep area. IV Fluids: 0.9% NaCl at KVO. 0 mL infused prior to microbiology laboratory manager. Pre Procedural Pulses: bilateral dorsalis pedis was Doppled. Pre Procedural Pulses: bilateral posterior tibial was Doppled. Oxygen started at 4liters/min via nasal canula. bilateral groins was prepped with chloroprep then draped in the usual sterile fashion. Physician notified. Baseline sample Acquired. HR: 84 BPM. Patient's family unavailable. Equipment: 6F - Femoral. Cardiac Cath Pack. ACIST Manifold Kit Model BT 2000. Heparinized Saline (2 units/mL), 1000 mL bag. Kit, Micropuncture. Physician arrived. Physician scrubbed in. Immediate Pre-Procedure Time Out. Correct Patient: Yes; Correct Procedure: Yes; Correct Site: Yes; Correct Patient Position: Yes; Correct Supplies: Yes; Dried Flammable Prep: Yes; Blood Products Available: N/A. Lidocaine 1% infiltrated to the right groin. Arterial access obtained with micropuncture set. A 5 congolese JL4 catheter in over the exchange J wire. Multiple views taken of left coronary artery. Catheter removed over the exchange J wire. A 5 congolese JR4 catheter in over wire. Multiple views taken of right coronary artery. Catheter redirected to the SVG --> RCA. SVG --> RCA occluded. Catheter redirected to the SVG --> OM. Catheter redirected to the ROMAN. ROMAN to LAD visualized. Catheter removed over the exchange J wire. A 5 congolese IM catheter in over the exchange J wire. ROMAN to LAD visualized. Catheter removed over the exchange J wire. A 5 congolese AL1 catheter in over the exchange J wire. SVG to OM occluded. Catheter removed over the exchange J wire. A Right femoral angiogram was performed to determine safe placement of closure device. A Mynx was successful obtaining hemostatsis at the Right Femoral artery insertion site. Mynx placed without complications. No signs or symptoms of hematoma noted. Sterile dressing applied per usual sterile fashion. Post Procedure: Pulses reassessed and unchanged. PERRLA. Strong, equal hand hog scalder bilaterally. No VTE prophylaxis required. Medication's Wasted: Lidocaine 1% = 10 mL. Medication's Wasted: Heparin = 1000 units. Medication's Wasted: Other = Fentanyl 50 mcg. Total IV fluids: 35 mL. Post-op diagnosis: Occluded SVG --> RCA and OM. Medical management. Complications: none. Estimated blood loss: 5mL-10mL. Responsiveness - Normal response to verbal stimuli; alert and oriented, PERRLA. Airway - Unaffected, no intervention required; spontaneous ventilation. Circulation: W/N/L, pulses unchanged. Nausea/Vomiting: No. Procedure completed. Vital chart was stopped. Patient transferred by bed to ICU. Access Site Site: Right Femoral artery Sheath Size: 6 Fr Hemostasis Method: Mynx Hemostasis Success: Successful Procedure Medications Start: 11:54 AM Stop: 11:54 AM Medication: Versed Amount: 1 mg Route: I.V. Start: 11:58 AM Stop: 11:58 AM Medication: Fentanyl Amount: 25 mcg Route: I.V. Start: 12:06 PM Stop: 12:06 PM Medication: Versed Amount: 1 mg Route: I.V. Start: 12:15 PM Stop: 12:15 PM Medication: Fentanyl Amount: 25 mcg Route: I.V. I, the attending physician, have reviewed and verified all procedure medications. Yes, all medications given per verbal order History/Risk Factors Hypertension: Yes Dyslipidemia: Yes Peripheral Arterial Disease (PAD): No Myocardial Infarction (OK): Yes Obesity: No Renal Disease: No Tobacco Use: Current/Recent(w/in 1 year) Prior Interventions PCI: No CABG: No Valve Surgery: No Report Signatures Finalized by Nahum Hollins MD on 05/21/2025 12:46 PM
[2025-05-10] MEDS: ARFORMOTEROL 15 MCG/2 ML NEB INHALATION ×2 (07:49→19:46)
--- NOTE | 2025-05-10 09:49 | P.PN_ITS ---
<Statement entered by Nahum Hollins M.D - 05/16/25 13:23> Patient was cared for in conjunction with an advanced practice practitioner.? I reviewed the chart and all pertinent data including imaging, telemetry, and laboratory results.? I discussed the patient in detail with the advanced practice practitioner.? Please see? their documentation for progress note, testing results and agreed upon plan of care for the patient. Subjective 2 Subjective: He appears much better this morning, he had thoracentesis on 05/07, removed 800mL from the left side. No arrhythmias noted on the telemetry, no report of shock by the patient. On nasal cannula at 3L currently, head of bed at about 20 degrees, without any labored breathing. Plan for [facility] later today around 11:30 AM. Vitals/I&O/Wt Last Vital Signs Temp 97.0 F L 05/10/25 04:00 Pulse 82 05/10/25 07:49 Resp 20 H 05/10/25 07:49 BP 102/77 05/10/25 05:30 Pulse Ox 95 05/10/25 07:49 O2 Del Method Nasal Cannula 05/10/25 07:49 O2 Flow Rate 3 05/10/25 07:49 FiO2 40 05/08/25 14:00 05/09/25 05/10/25 05/10/25 22:59 06:59 14:59 Intake Total 250 / 1562 536 / 1562 Output Total 800 / 2625 800 / 2625 Balance -550 / -1063 -264 / -1063 Weight last 48 hrs Weight 166 lb 7.184 oz Weight 168 lb 10.458 oz Physical Exam 2 Const: COMMON NORMALS: no acute distress and patient oriented x3 GENERAL APPEARANCE: cooperative and comfortable ORIENTATION/CONSCIOUSNESS: Yes awake, Yes oriented to person, Yes oriented to place and Yes oriented to time Chest: COMMONS NORMALS: normal inspection of the chest and normal palpation of entire chest wall CHEST: Yes Symmetrical chest wall rise Resp: COMMON NORMALS: normal respiratory effort, No retractions and No use of accessory muscles EFFORT & INSPECTION: Yes symmetric chest movement A USCULTATION: rales bilateral throughout Cardio: COMMON NORMALS: regular rate, regular rhythm, S1 normal heart sound present, S2 normal heart sound present, No gallops present (Cardio), No clicks present (Cardio), No murmurs present (Cardio) and No rub (Cardio) RATE: r egular rate RHYTHM: regular rhythm HEART SOUNDS: S1 normal heart sound present and S2 normal heart sound present PERIPHERAL PULSES: radial pulses present Extremity: GENERAL: Yes edema (1+ pitting edema bilateral LE near ankles) Neuro: COMMON NORMALS: patient oriented x3 and moves all extremities S ENSORIUM/ORIENTATION: Yes oriented to person, Yes oriented to place and Yes oriented to time Urinary Catheter Management: Mendoza: Cath Placed During This Visit: yes Reason for Continuing Indwelling Catheter: Accurate Measurement of Urinary Output in Critically Ill Patients Urinary Catheter Date of Insertion: 05/04/25 Urinary Catheter Time of Insertion: 11:56 Data 05/10/25 04:53 05/10/25 04:53 Micro: Microbiology 05/04/25 06:42 Blood Culture - Final Blood NO GROWTH AFTER 5 DAYS 05/04/25 06:37 Blood Culture - Final Blood NO GROWTH AFTER 5 DAYS 05/07/25 15:32 Gram Stain - Final Pleural Fluid Body Fluid Culture - Preliminary 05/07/25 15:32 Anaerobic Culture - Preliminary Pleural Fluid A&P Assessment and plan 1. ICD (implantable cardioverter-defibrillator) in place: 2. PAF (paroxysmal atrial fibrillation): 3. Atherosclerosis of [place] coronary artery of [place] heart without angina pectoris: 4. Ventricular arrhythmia: 5. Aortic stenosis, severe: 6. Acute on chronic heart failure with reduced ejection fraction (HFrEF, <= 40%) and combined systolic and diastolic dysfunction: 7. Chronic obstructive pulmonary disease, unspecified COPD type: 8. Pneumonia: Plan: Will have [facility] today for ischemic workup for recurrent VT, heart failure. He appears nearly euvolemic now, continue Lasix 40 mg IV 3 times daily. Blood pressure has limited GDMT for heart failure, continue fludrocortisone, midodrine. He has been switched to oral amiodarone, no recurrences of VT noted. Continue digoxin and metoprolol. Further plan based on results of cath. Afternoon update: Coronary angiogram revealed ROMAN to LAD patent, SVG to RCA and OM both occluded, [place] left circumflex occluded, subtotal occlusion of the [place] RCA RCA has collaterals from ROMAN. The VT is scar based, if he continues to have frequent runs of VT will require referral to electrophysiology for VT ablation. Continue amiodarone. PDMP PDMP Reviewed: Not Reviewed Attestations 2 Medical Necessity Statement*: ischemic workup Coding Level of Care Code Acute Code for Chg Fwd Diagnoses ICD (implantable cardioverter-defibrillator) in place Z95.810 PAF (paroxysmal atrial fibrillation) I48.0 Atherosclerosis of [place] coronary artery of [place] heart without angina pectoris I25.10 Coronary Disease-Associated Artery/Lesion type: [place] artery Ventricular arrhythmia I49.9 Aortic stenosis, severe I35.0 Acute on chronic heart failure with reduced ejection fraction (HFrEF, <= 40%) and combined systolic and diastolic dysfunction I50.43 Chronic obstructive pulmonary disease, unspecified COPD type J44.9 COPD type: unspecified COPD Pneumonia J18.9
--- NOTE | 2025-05-10 11:23 | PM.PN ---
Subjective Subjective: Philippe Dahl is a 74 year old male with past medical history of chronic systolic heart failure with EF of 40% status post CABG, ischemic cardiomyopathy, AICD in place for A-fib, COPD, recent hospitalization for congestive heart failure and pneumonia was discharged and readmitted within 24 hours for shortness of breath. He was found to be hypoxic with saturations in the 70s per EMS, multiple rounds of nebulizer solution given along with oxygen. Had some bloody cough/secretions, placed on BiPAP. In ER was found to be tachycardic and high flow nasal cannula started at 60 l /50 % FiO2. He was found to have pneumonia and started on IV vancomycin and Zosyn for hospital-acquired pneumonia and azithromycin for atypical coverage also placed on incentive spirometer and Acapella with chest vest. Possible exacerbation started on Solu-Medrol ipratropium and Xopenex every 4 hours with Mucinex. Today he has had increased difficulty breathing and started on BiPAP. Had an atrial tachycardia episode shocked by ICD. Currently on amiodarone drip. Cardiology consulted. Previous admission has had V tach and nonsustained episodes periodically. Electrolytes being replaced. Due to having bilateral pleural effusions thoracentesis is planned anticoagulation held. Thoracentesis done today 800 cc removed on the left side. 05/08/2025 Currently he is on 50 L / 45% FiO2 hyponasal cannula. Getting a chest vest Secretion issues as well. Does dip down to low upper 80s occasionally. 05/09/2025 Still coughing up some old bloody unrested sputum. Only on 5 L nasal cannula. Using Acapella as well as a chest vest regularly at least twice a day. There is stable. 05/10/2025 Clearing mucus secretions: Stilll bloody. On 3 L l nasal cannula feels well no complaints. Pending cath today. Vitals/I&O/Wt Last Vital Signs Temp 97.8 F 05/10/25 09:30 Pulse 91 05/10/25 10:00 Resp 22 H 05/10/25 10:00 BP 110/70 05/10/25 10:00 Pulse Ox 84 L 05/10/25 10:00 O2 Del Method Nasal Cannula 05/10/25 09:30 O2 Flow Rate 3 05/10/25 09:30 FiO2 40 05/08/25 14:00 05/09/25 05/10/25 05/10/25 22:59 06:59 14:59 Intake Total 250 / 1026 536 / 1562 Output Total 800 / 1825 800 / 2625 Balance -550 / -799 -264 / -1063 Weight last 48 hrs Weight 166 lb 7.184 oz Weight 168 lb 10.458 oz Physical Exam Narrative: Per RN General: alert, NAD obese HEENT: EOMI Pulmonary: left side rhonchorous breath sounds Cardiovascular: rrr, nl s1s2, Agree with above exam Urinary Catheter Management: Mendoza: Cath Placed During This Visit: yes Reason for Continuing Indwelling Catheter: Accurate Measurement of Urinary Output in Critically Ill Patients Urinary Catheter Date of Insertion: 05/04/25 Urinary Catheter Time of Insertion: 11:56 Data 05/10/25 04:53 05/10/25 04:53 Micro: Microbiology 05/04/25 06:42 Blood Culture - Final Blood NO GROWTH AFTER 5 DAYS 05/04/25 06:37 Blood Culture - Final Blood NO GROWTH AFTER 5 DAYS 05/07/25 15:32 Gram Stain - Final Pleural Fluid Body Fluid Culture - Preliminary 05/07/25 15:32 Anaerobic Culture - Preliminary Pleural Fluid A&P Assessment and plan 1. Chronic obstructive pulmonary disease, unspecified COPD type: 2. Acute on chronic hypoxic respiratory failure: 3. Pneumonia: Plan: # Septic shock most likely secondary to pneumonia # Hypotension-most likely septic shock. Currently on midodrine and fludrocortisone daily # Ventricular arrhythmia shocked by ICD currently on amiodarone. Cardiology consulted reviewed records from 04/06/2025 showing no more recurrences of VT. Plan is for angiogram over the today to determine whether ventricular tachycardia was due to ischemia... Continue IV Lasix 40 mg twice daily along with midodrine and fludrocortisone. Continue amiodarone infusion, digoxin 125 mcg daily and metoprolol 12.5 mg twice daily Patient is currently n.p.o. # Acute on chronic hypoxemic respiratory failure-most likely due to a combination of acute congestive heart failure as well as pneumonia -High flow nasal cannula weaned off 05/08/2025. Currently on 3 L nasal cannula improving slowly. Due to patient's cardiac arrhythmias I would recommend getting stabilized first and cardiac clearance before we consider bronchoscopy which will be a invasive high risk procedure. Under general anesthesia. High risk of respiratory compromise with need for mechanical ventilation as well as cardiac instability. Consent obtained in preparation for bronchoscopy if needed.. Risks explained to the at bedside 05/09/2025. We may not need to do a bronchoscopy since he is clinically improving but he if he has any mucous secretion clearance issues we will tentatively plan this on Saturday. - Reviewed BG. 7.51/pCO2 40/PaO2 of 40-most likely was a VBG. 05/07/2025 - Reviewed chest CT shows bilateral effusions loculated pleural effusion on the left with extensive pulmonary infiltrates left more than right mixed with emphysematous changes. Concerning for parapneumonic effusion. - Chest x-ray reviewed-05/08/25-pulmonary vascular congestion improved from 2 days ago. Pneumonialike infiltrates are also resolving. COPD changes noted. Left costophrenic angle looks clear. He may need CT scan later to reevaluate the loculated pleural effusion. White Count normal and since his chest x-ray is clearing we will hold off on the need for chest tube placement and only clinically monitoring for now. If chest x-ray worsens he might need a repeat CT and consideration for chest tube in the future. Will get chest x-ray again on Saturday # Bilateral pleural effusions Status post thoracentesis today 800 mL out. -Reviewed thoracentesis results-pH of 8.5, glucose 212, LDH 53, protein 0.6-most likely transudative reviewed results 05/08/2025. # Pneumonia-present on admission, currently covered with IV vancomycin and Zosyn. Await cultures-no growth till date 05/08/2025 so far negative. Will stop vancomycin today. # Acute COPD exacerbation -Agree with Solu-Medrol Q6 as well as Pulmicort and ipratropium with Xopenex. - May switch to prednisone tomorrow 40 mg daily taper over a week. Is currently n.p.o. - Continue Mucinex Acapella and vest therapy for now. Continue Brovana nebulizer to his regimen. # Severe aortic stenosis- limit fluids # CAD status post CABG - Pending possible cath # Status post ICD # Atrial fibrillation # Hyperglycemia-insulin sliding scale medium. Avoid hypoglycemia. Maintain blood sugars between 140-180. # Sedation-limit # Nutrition-okay with p.o. intake # DVT GI prophylaxis-SCDs and famotidine. Hold off on anticoagulation # Goals of care- # CODE STATUS- FULL # Disposition-okay to discharge to floor Medical decision making level- Moderate Moderate MDM includes number and complexity of problems actively addressed during encounter, amount and/or complexity of data reviewed/ordered [ previous or external records, resulted lab(s)/test(s), ordered lab(s)/test(s), independent historian, independent test interpretation and other healthcare professional discussion] and described risk of complication, morbidity or mortality of management as documented This documentation was created by [employer] elect equip maint eng software (known for inherent elect equip maint eng error). Every effort was made to assure accuracy of elect equip maint eng. Any obvious errors or omissions should be clarified with the author of the document Telemedicine Consent Patient seen today via Telemedicine by agreement and consent of patient.? Telemedicine technology used during the visit includes audio and, as available, review of images.? The patient encounter is appropriate and reasonable under the circumstances given the patient?s particular presentation at this time.? The patient has been advised of the potential risks and limitations of this mode of treatment (including but not limited to the absence of in-person examination) and has agreed to be treated in a remote fashion in spite of them.? Any, and all, of the patient?s/patient?s family?s questions on this issue have been answered and I have made no promises or guarantees to the patient. PDMP PDMP Reviewed: Not Reviewed Attestations Medical Necessity Statement*: Okay to transfer to floor Coding Level of Care Code 57350 Diagnoses Chronic obstructive pulmonary disease, unspecified COPD type J44.9 COPD type: unspecified COPD Acute on chronic hypoxic respiratory failure J96.21 Pneumonia J18.9
--- NOTE | 2025-05-10 11:52 | W.PM.OPSUD ---
Surgery/Procedure H&P Update DATE OF PROCEDURE: May 10, 2025 DATE H&P PERFORMED: 05/06/25 H&P UPDATE INFORMATION: I have reviewed H&P completed within last 30 days, I have examined patient prior to procedure and No changes to prior documentation PREOP DIAGNOSIS: Ventricular tachycardia PRIMARY INDICATION FOR PROCEDURE: Ventricular tachycardia PLANNED PROCEDURE: Operation Date: 05/09/25 08:10 Proposed Procedures p Cardiac Catheterization(Not Applicable) - Nahum Hollins M.D Possible percutaneous coronary intervention PATIENT REASSESSED PRIOR TO SEDATION, WITH NO CHANGE NOTED: Yes PHYSICAL EXAM: alert, oriented x 3, clear to auscultation bilaterally and regular rate & rhythm OTHER PERTINENT EXAM FINDINGS: Diminished air entry bilaterally AIRWAY EVAL/ANESTHESIA PLAN: normal airway, ASA IV, Local Anesthesia, Risks, benefits & alternatives of sedation and/or procedure discussed and Patient agrees to continue as planned ADDITIONAL INFORMATION: Moderate sedation
--- NOTE | 2025-05-10 12:55 | PM.PROC ---
Procedure Note: Date of procedure: 05/10/25 Pre-procedure diagnosis: Ventricular tachycardia Post-procedure diagnosis: other Procedure: Left main artery is patent. Diagonal artery has patent prior stent with moderate in-stent restenosis. LAD is mid vessel occluded. ROMAN to LAD is patent. SVG graft to RCA and OM are occluded. [place] left circumflex artery is occluded. RCA has subtotal occlusion of proximal segment with very heavy calcification. Distal vessel also has severe calcified stenosis. RCA has collaterals from ROMAN. Ventricular tachycardia is scar based (stress test showed prior infarcts with very minimal reversibility). Continue amiodarone. If has frequent VT episodes in future, will refer to EP for VT ablation Performing Provider: Nahum Hollins Complications: None Condition: stable Disposition: ICU Coding Level of Care Code Acute Code for Chg Lionel
--- NOTE | 2025-05-10 13:12 | PC.OT ---
Hold OT treatment today to due bed rest orders following procedure; will attempt again at later time.
--- NOTE | 2025-05-10 14:00 | P.PN_ITS ---
Subjective 2 Subjective: Patient was seen this morning, he is alert oriented x 2, follows all commands, shortness of breath has resolved he tells me he is able to lie flat, no chest pain, palpitations, no cough Vitals/I&O/Wt Last Vital Signs Temp 97.8 F 05/10/25 09:30 Pulse 77 05/10/25 13:31 Resp 18 05/10/25 13:27 BP 110/70 05/10/25 10:00 Pulse Ox 96 05/10/25 13:27 O2 Del Method Nasal Cannula 05/10/25 13:27 O2 Flow Rate 3 05/10/25 13:27 FiO2 40 05/08/25 14:00 05/09/25 05/10/25 05/10/25 22:59 06:59 14:59 Intake Total 250 / 1026 536 / 1562 Output Total 800 / 1825 800 / 2625 Balance -550 / -799 -264 / -1063 Weight last 48 hrs Weight 75.5 kg Weight 76.5 kg Physical Exam 2 Const: COMMON NORMALS: no acute distress and patient oriented x3 Resp: COMMON NORMALS: normal respiratory effort, No retractions, No use of accessory muscles and clear to auscultation bilaterally AUSCULTATION: clear to auscultation bilaterally Cardio: COMMON NORMALS: regular rate, regular rhythm, S1 normal heart sound present and S2 normal heart sound present RATE: regular rate RHYTHM: r egular rhythm HEART SOUNDS: S1 normal heart sound present and S2 normal heart sound present GI: COMMON NORMALS: Normal to inspection, nondistended, normoactive bowel sounds present and non-tender Extremity: COMMON NORMALS: no pedal edema Neuro: COMMON NORMALS: patient oriented x3 Psych: COMMON NORMALS: mental status grossly normal Urinary Catheter Management: Mendoza: Cath Placed During This Visit: yes Reason for Continuing Indwelling Catheter: Accurate Measurement of Urinary Output in Critically Ill Patients Urinary Catheter Date of Insertion: 05/04/25 Urinary Catheter Time of Insertion: 11:56 Data 05/10/25 04:53 05/10/25 04:53 Micro: Microbiology 05/07/25 15:32 Anaerobic Culture - Preliminary Pleural Fluid 05/04/25 06:42 Blood Culture - Final Blood NO GROWTH AFTER 5 DAYS 05/04/25 06:37 Blood Culture - Final Blood NO GROWTH AFTER 5 DAYS 05/07/25 15:32 Gram Stain - Final Pleural Fluid Body Fluid Culture - Preliminary A&P Assessment and plan 1. Shock: 2. Ventricular arrhythmia: 3. Acute on chronic hypoxic respiratory failure: 4. Pneumonia: 5. Chronic obstructive pulmonary disease, unspecified COPD type: 6. Acute on chronic heart failure with reduced ejection fraction (HFrEF, <= 40%) and combined systolic and diastolic dysfunction: 7. Aortic stenosis, severe: Seen on echocardiogram from 04/28. 8. CAD (coronary artery disease): 9. ICD (implantable cardioverter-defibrillator) in place: 10. PAF (paroxysmal atrial fibrillation): 11. Hypotension: Plan: Acute hypoxic respiratory failure - Multifactorial - systolic CHF, pulmonary edema - Pneumonia - Bilateral pleural effusions - COPD exacerbation -Requiring heated high flow, down to nasal cannula CT/CT angio chest PE protcl [id number] IMPRESSION: 1. No pulmonary embolism. 2. Significant progression of pneumonia and edema and groundglass attenuation throughout both lungs since 04/27/2025. 3. Small bilateral pleural effusions. 4. Cardiomegaly. 5. Reactive mediastinal and hilar adenopathy. 6. Reidentified is a low density tubular lesion in the prevascular space which abuts the aortic arch. This may be related to prior surgeries. This has been present since the initial CT from 03/31/2025. Benign sterile postoperative collection. Mediastinal abscess would be difficult to exclude. There has been no progression since 03/31/2025. 7. Tricuspid regurgitation into the hepatic veins. Plan -Monitor respiratory status closely - Solu-Medrol weaned to prednisone - DuoNeb -Brovana - Vancomycin - Zosyn - Lasix 40 to 40 mg IV every 12 hours Shock -Multifactorial - Concern for septic shock secondary to pneumonia - Concerns for adrenal insufficiency Blood -Levophed to maintain MAP greater than 65, currently off - Midodrine 15 mg 3 times daily - Fludrocortisone Bilateral pleural effusions - History of thoracentesis, left, 800 cc yellow clear fluid - Transudative - Cultures so far negative COPD exacerbation - As above Moderate to Severe aortic stenosis - Monitor fluid status CAD status post CABG Limited echo Moderately increased left ventricular cavity size. Moderately decreased left ventricular systolic function. Left ventricular ejection fraction is estimated at 40 %. There appeared to be mid to distal anterior and apical akinesis suggestive of ischemic heart disease. Severely calcified aortic valve probably moderate to severe aortic valve stenosis There is no pericardial effusion. stress test 04/2025 IMPRESSIONS 1. Myocardial perfusion imaging revealing large area of persistent decreased tracer uptake involving the anterior, anterolateral, inferolateral, inferior and all the apical segments suggesting extensive scarring in the distribution of all the 3 coronary arteries with possible subtle areas of [place]-infarction ischemia.-(Summed stress score of 39 with resting score of 40) 2. Diminished LV ejection fraction of 32%. 3. Segmental wall motion analysis revealing severe diffuse hypokinesis of the left ventricle with a dyskinetic LV apex. 4. Moderately dilated LV cavity. No similar previous studies are available for comparison - Coronary angiogram planned for tomorrow - Aspirin, statin Atrial fibrillation - Eliquis on hold - On heparin - Beta-ketty on hold due - On amiodarone 400mg twice daily - Digoxin Ventricular arrhythmia - Status post ICD shock - Cardiology consulted - Plan on angiogram Anemia, monitor hemoglobin 9.8 Acute chronic thrombocytopenia 122, monitor Disposition: Currently requiring skilled level of care Discharge planning: SNF versus LTAC Pain control: Morphine Glycemic control: Low-dose insulin sliding scale Nutrition: Dysphagia level 6 CODE STATUS DNR/DNI GI prophylaxis Protonix DVT prophylaxis SCDs, heparin 500 mg every 8 hours Activity: Out of bed into a chair plan for today: IV antibiotics, IV diuretics, monitor respiratory status, coronary angiography PDMP PDMP Reviewed: Not Reviewed Attestations 2 Medical Necessity Statement*: Patient requires hospitalization respiratory failure, NSTEMI Diagnoses Shock R57.9 Ventricular arrhythmia I49.9 Acute on chronic hypoxic respiratory failure J96.21 Pneumonia J18.9 Laterality: bilateral Lung location: lower lobe of lung Pneumonia type: due to unspecified organism Chronic obstructive pulmonary disease, unspecified COPD type J44.9 COPD type: unspecified COPD Acute on chronic heart failure with reduced ejection fraction (HFrEF, <= 40%) and combined systolic and diastolic dysfunction I50.43 Aortic stenosis, severe I35.0 CAD (coronary artery disease) I25.10 Associated angina: without angina Coronary Disease-Associated Artery/Lesion type: [place] artery [place] vs. transplanted heart: [place]stone heart ICD (implantable cardioverter-defibrillator) in place Z95.810 PAF (paroxysmal atrial fibrillation) I48.0 Hypotension I95.9
--- NOTE | 2025-05-10 14:57 | PC.NURSE ---
Transfer - Received patient back form civil laboratory technician at 1248. Patient is lethargic, but can be awoken to correctly answer orientation questions correctly. Educated again on need to lay flat until 5pm due to femoral access. Mynx closure device in place. Femoral access site is unremarkable. Dressing in place, no hematoma or external bleeding detected. Pulses present in bilateral feet. HR: 79 BP: 93/61 SPO2: 94% on 4 Lnc Tempt: 97.8
--- NOTE | 2025-05-10 18:30 | PC.NURSE ---
Ambulation: After 4 hours bedrest, patient ambulated short distance in room and sat in recliner. Nurse has frequently checked femoral cath site. Continues to be dry and intact, no evidence of hematoma.
--- NOTE | 2025-05-10 18:31 | PC.NURSE ---
Shift summary: uneventful shift, Patient rested in bed for most of the day due to bed rest requirements post cath. Up to a chair near end of shift with no complications. Remains on 3L NC. No interventions during cath procedure. Total urine output: 1350mL
[2025-05-11] VITALS (47 sets, daily range): BP systolic 87–168; BP diastolic 58–120; PULSE 58–110; RESP 13–32; TEMP 36.1–36.7; O2SAT 81–98
[2025-05-11] MEDS: piperacillin-tazobactam 3.375 GM in sodium chloride 0.9% (plus) 50 ML IV ×2 (00:18→06:20)
[2025-05-11] MEDS: heparin 5,000 unit/mL INJ 1 mL 5000 UNIT SUBCUT ×2 (00:19→06:22)
[2025-05-11 03:38] LABS: Hematocrit 35.7 % (37-53); Hemoglobin 11.30 g/dL (11.27-16.99); Mean Corpuscular HGB Conc 31.7 g/dL (30-55); Mean Corpuscular Hemoglobin 30.4 pg (27-33); Mean Corpuscular Volume 96.0 fl (82-101); Nucleated Red Blood Cells % 0 %; Platelet Count 143 10^3/cmm (157-399); Red Blood Count 3.72 10^6/uL (3.85-5.65); White Blood Count 10.13 10^3/uL (3.29-11.43)
[2025-05-11 04:26] LABS: NT Pro B Type Natriuretic Pept 15573 pg/mL (0-125)
[2025-05-11 04:40] LABS: Anion Gap 18.4 (5-19); Blood Urea Nitrogen 24 mg/dL (8-23); Calcium 8.7 mg/dL (8.5-10.5); Carbon Dioxide 29 mmol/L (22-29); Chloride 96 mmol/L (98-107); Glucose 75 mg/dL (65-115); Osmolality Calculated 293 mOsm/kg (285-295); Potassium 3.4 mmol/L (3.5-5.1); Sodium 140 mmol/L (136-145)
[2025-05-11] MEDS: ARFORMOTEROL 15 MCG/2 ML NEB INHALATION ×2 (07:36→20:05)
--- NOTE | 2025-05-11 08:20 | P.PN_ITS ---
<Statement entered by Nahum Hollins M.D - 05/16/25 13:24> Patient was cared for in conjunction with an advanced practice practitioner.? I reviewed the chart and all pertinent data including imaging, telemetry, and laboratory results.? I discussed the patient in detail with the advanced practice practitioner.? Please see? their documentation for progress note, testing results and agreed upon plan of care for the patient. Subjective 2 Subjective: He reports easy breathing, no events overnight. Vitals/I&O/Wt Last Vital Signs Temp 97.1 F L 05/11/25 04:00 Pulse 84 05/11/25 07:42 Resp 18 05/11/25 07:22 BP 100/76 05/11/25 04:00 Pulse Ox 94 05/11/25 07:22 O2 Del Method Nasal Cannula 05/11/25 07:22 O2 Flow Rate 3 05/11/25 07:22 FiO2 40 05/08/25 14:00 05/10/25 05/11/25 05/11/25 22:59 06:59 14:59 Intake Total 630 / 910 230 / 910 Output Total 1350 / 2450 1100 / 2450 Balance -720 / -1540 -870 / -1540 Weight last 48 hrs Weight 168 lb 12.095 oz Weight 166 lb 7.184 oz Physical Exam 2 Const: COMMON NORMALS: no acute distress and patient oriented x3 GENERAL APPEARANCE: cooperative ORIENTATION/CONSCIOUSNESS: Yes awake, Yes oriented to person, Yes oriented to place and Yes oriented to time Chest: COMMONS NORMALS: normal inspection of the chest and normal palpation of entire chest wall CHEST: Yes Symmetrical chest wall rise Resp: COMMON NORMALS: normal respiratory effort, No retractions, No use of accessory muscles and clear to auscultation bilaterally AUSCULTATION: clear to auscultation bilaterally Cardio: COMMON NORMALS: regular rate, regular rhythm, S1 normal heart sound present, S2 normal heart sound present, No gallops present (Cardio), No clicks present (Cardio), No murmurs present (Cardio) and No rub (Cardio) RATE: r egular rate RHYTHM: regular rhythm HEART SOUNDS: S1 normal heart sound present and S2 normal heart sound present PERIPHERAL PULSES: radial pulses present positive right 2+ and femoral pulses present positive right 2+ Neuro: COMMON NORMALS: patient oriented x3 and moves all extremities S ENSORIUM/ORIENTATION: Yes oriented to person, Yes oriented to place and Yes oriented to time Skin: WOUNDS: Yes surgical site (no hematoma palpable) Details: no odor Urinary Catheter Management: Mendoza: Cath Placed During This Visit: yes Reason for Continuing Indwelling Catheter: Accurate Measurement of Urinary Output in Critically Ill Patients Urinary Catheter Date of Insertion: 05/04/25 Urinary Catheter Time of Insertion: 11:56 Data 05/11/25 03:26 05/11/25 03:26 Micro: Microbiology 05/07/25 15:32 Fungal Smear - Preliminary Pleural Fluid 05/07/25 15:32 Mycobacterial Smear - Preliminary Body Fluids - Thoracentesis 05/04/25 07:33 Fungal Smear - Preliminary Sputum - Expectorated Sputum 05/07/25 15:32 Gram Stain - Final Pleural Fluid Body Fluid Culture - Preliminary 05/07/25 15:32 Anaerobic Culture - Preliminary Pleural Fluid 05/04/25 06:42 Blood Culture - Final Blood NO GROWTH AFTER 5 DAYS 05/04/25 06:37 Blood Culture - Final Blood NO GROWTH AFTER 5 DAYS A&P Assessment and plan 1. ICD (implantable cardioverter-defibrillator) in place: 2. PAF (paroxysmal atrial fibrillation): 3. Acute on chronic heart failure with reduced ejection fraction (HFrEF, <= 40%) and combined systolic and diastolic dysfunction: 4. Ventricular arrhythmia: 5. Aortic stenosis, severe: 6. Afib: 7. CAD (coronary artery disease): 8. Hypotension: 9. Chronic obstructive pulmonary disease, unspecified COPD type: Plan: He appears euvolemic. No arrhythmias overnight. Continue amiodarone 400mg BID, digoxin, metoprolol on hold due to hypotension. Midodrine and fludrocortisone for blood pressure support. Plan is to discharge to custodial facility. PDMP PDMP Reviewed: Not Reviewed Attestations 2 Medical Necessity Statement*: per hospitalist Coding Level of Care Code Acute Code for Chg Fwd Diagnoses ICD (implantable cardioverter-defibrillator) in place Z95.810 PAF (paroxysmal atrial fibrillation) I48.0 Acute on chronic heart failure with reduced ejection fraction (HFrEF, <= 40%) and combined systolic and diastolic dysfunction I50.43 Ventricular arrhythmia I49.9 Aortic stenosis, severe I35.0 Afib I48.91 CAD (coronary artery disease) I25.10 Hypotension I95.9 Chronic obstructive pulmonary disease, unspecified COPD type J44.9 COPD type: unspecified COPD
--- NOTE | 2025-05-11 09:18 | XRR_ITS ---
PROCEDURE INFORMATION: Exam: XR Chest Exam date and time: 05/11/2025 11:06 AM Age: 74 years old Clinical indication: Shortness of breath; Additional info: SOB TECHNIQUE: Imaging protocol: Radiologic exam of the chest. Views: 1 view. COMPARISON: CR (CHEST, ) 05/08/2025 12:56 PM. FINDINGS: Tubes, catheters and devices: Sternal closure devices are present. There is a clip of the left atrial appendage. An ICD is present. Right upper extremity PICC with tip projecting over the SVC/right atrial junction. Lungs: Decreased opacities of the right midlung. Stable left mid lung opacities. Pleural spaces: Unremarkable. No gross pleural effusion. No pneumothorax. Heart/Mediastinum: There is stable cardiomegaly. Bones/joints: Unremarkable. XR/XR chest 1V portable [id number] IMPRESSION: 1. Stable left mid lung opacities concerning for infectious or inflammatory process. 2. Decreased right midlung opacities.
[2025-05-11] MEDS: FUROsemide 10 mg/mL SDV 4mL 40 MG IVP ×2 (09:38→17:06)
[2025-05-11] MEDS: polyethylene glycol 3350 Pkt 17 gm PO (09:40)
--- NOTE | 2025-05-11 16:39 | PM.PN ---
Subjective Subjective: - Patient was seen this morning - Denies any chest pain, does report shortness of breath, lower extremity edema - He did have an episode of hemoptysis this morning, it was scanned, Vitals/I&O/Wt Last Vital Signs Temp 97.0 F L 05/11/25 12:00 Pulse 80 05/11/25 16:00 Resp 24 H 05/11/25 16:00 BP 101/72 05/11/25 14:00 Pulse Ox 88 L 05/11/25 16:00 O2 Del Method Nasal Cannula 05/11/25 13:45 O2 Flow Rate 3 05/11/25 13:45 FiO2 40 05/08/25 14:00 05/11/25 05/11/25 05/11/25 06:59 14:59 22:59 Intake Total 230 / 910 300 / 300 Output Total 1100 / 2450 Balance -870 / -1540 300 / 300 Weight last 48 hrs Weight 76.546 kg Weight 75.5 kg Physical Exam Const: COMMON NORMALS: no acute distress and patient oriented x3 Resp: COMMON NORMALS: normal respiratory effort, No retractions and No use of accessory muscles OTHER: Crackles and wheezing in all lung espino Cardio: COMMON NORMALS: regular rate, regular rhythm, S1 normal heart sound present and S2 normal heart sound present RATE: regular rate RHYTHM: regular rhythm HEART SOUNDS: S1 normal heart sound present and S2 normal heart sound present GI: COMMON NORMALS: Normal to inspection, nondistended, normoactive bowel sounds present and non-tender Extremity: NARRATIVE EXTREMITY EXAM: 1+ pitting edema Neuro: COMMON NORMALS: patient oriented x3 Psych: COMMON NORMALS: mental status grossly normal Urinary Catheter Management: Mendoza: Cath Placed During This Visit: yes Reason for Continuing Indwelling Catheter: Accurate Measurement of Urinary Output in Critically Ill Patients Urinary Catheter Date of Insertion: 05/04/25 Urinary Catheter Time of Insertion: 11:56 Data 05/11/25 03:26 05/11/25 03:26 Micro: Microbiology 05/07/25 15:32 Gram Stain - Final Pleural Fluid Body Fluid Culture - Final 05/07/25 15:32 Anaerobic Culture - Preliminary Pleural Fluid 05/07/25 15:32 Fungal Smear - Preliminary Pleural Fluid 05/07/25 15:32 Mycobacterial Smear - Preliminary Body Fluids - Thoracentesis 05/04/25 07:33 Fungal Smear - Preliminary Sputum - Expectorated Sputum A&P Assessment and plan 1. Shock: 2. Ventricular arrhythmia: 3. Acute on chronic hypoxic respiratory failure: 4. Pneumonia: 5. Chronic obstructive pulmonary disease, unspecified COPD type: 6. Acute on chronic heart failure with reduced ejection fraction (HFrEF, <= 40%) and combined systolic and diastolic dysfunction: 7. Aortic stenosis, severe: Seen on echocardiogram from 04/28. 8. CAD (coronary artery disease): 9. ICD (implantable cardioverter-defibrillator) in place: 10. PAF (paroxysmal atrial fibrillation): 11. Hypotension: Plan: Acute hypoxic respiratory failure - Multifactorial - systolic CHF, pulmonary edema - Pneumonia - Bilateral pleural effusions - COPD exacerbation -Requiring heated high flow, down to nasal cannula CT/CT angio chest PE protcl [id number] IMPRESSION: 1. No pulmonary embolism. 2. Significant progression of pneumonia and edema and groundglass attenuation throughout both lungs since 04/27/2025. 3. Small bilateral pleural effusions. 4. Cardiomegaly. 5. Reactive mediastinal and hilar adenopathy. 6. Reidentified is a low density tubular lesion in the prevascular space which abuts the aortic arch. This may be related to prior surgeries. This has been present since the initial CT from 03/31/2025. Benign sterile postoperative collection. Mediastinal abscess would be difficult to exclude. There has been no progression since 03/31/2025. 7. Tricuspid regurgitation into the hepatic veins. Plan -Monitor respiratory status closely - Solu-Medrol weaned to prednisone - DuoNeb -Brovana - De-escalate to Levaquin - 40 mg IV every 12 hours Shock -Multifactorial - Concern for septic shock secondary to pneumonia - Concerns for adrenal insufficiency Blood -Levophed to maintain MAP greater than 65, currently off - Midodrine 15 mg 3 times daily - Fludrocortisone Bilateral pleural effusions - History of thoracentesis, left, 800 cc yellow clear fluid - Transudative - Cultures so far negative COPD exacerbation - As above Moderate to Severe aortic stenosis - Monitor fluid status CAD status post CABG Limited echo Moderately increased left ventricular cavity size. Moderately decreased left ventricular systolic function. Left ventricular ejection fraction is estimated at 40 %. There appeared to be mid to distal anterior and apical akinesis suggestive of ischemic heart disease. Severely calcified aortic valve probably moderate to severe aortic valve stenosis There is no pericardial effusion. stress test 04/2025 IMPRESSIONS 1. Myocardial perfusion imaging revealing large area of persistent decreased tracer uptake involving the anterior, anterolateral, inferolateral, inferior and all the apical segments suggesting extensive scarring in the distribution of all the 3 coronary arteries with possible subtle areas of [place]-infarction ischemia.-(Summed stress score of 39 with resting score of 40) 2. Diminished LV ejection fraction of 32%. 3. Segmental wall motion analysis revealing severe diffuse hypokinesis of the left ventricle with a dyskinetic LV apex. 4. Moderately dilated LV cavity. No similar previous studies are available for comparison - Coronary angiogram planned for tomorrow - Aspirin, statin Atrial fibrillation - Eliquis on hold - On heparin - Beta-ketty on hold due - On amiodarone 400mg twice daily - Digoxin Ventricular arrhythmia - Status post ICD shock - Cardiology consulted - Plan on angiogram Anemia, monitor hemoglobin 9.8 Acute chronic thrombocytopenia 122, monitor Scant hemoptysis, hold heparin Disposition: Currently requiring skilled level of care Discharge planning: SNF versus LTAC Pain control: Morphine Glycemic control: Low-dose insulin sliding scale Nutrition: Dysphagia level 6 CODE STATUS DNR/DNI GI prophylaxis Protonix DVT prophylaxis SCDs, Activity: Out of bed into a chair plan for today: Moved to cardiac stepdown unit de-escalate antibiotics, de-escalate steroids, does have scant hemoptysis, monitor, hold heparin continue to diurese, speech therapy eval PDMP PDMP Reviewed: Not Reviewed Attestations Medical Necessity Statement*: Patient requires hospitalization for acute hypoxic respiratory failure Diagnoses Shock R57.9 Ventricular arrhythmia I49.9 Acute on chronic hypoxic respiratory failure J96.21 Pneumonia J18.9 Laterality: bilateral Lung location: lower lobe of lung Pneumonia type: due to unspecified organism Chronic obstructive pulmonary disease, unspecified COPD type J44.9 COPD type: unspecified COPD Acute on chronic heart failure with reduced ejection fraction (HFrEF, <= 40%) and combined systolic and diastolic dysfunction I50.43 Aortic stenosis, severe I35.0 CAD (coronary artery disease) I25.10 Associated angina: without angina Coronary Disease-Associated Artery/Lesion type: [place] artery [place] vs. transplanted heart: [place] heart ICD (implantable cardioverter-defibrillator) in place Z95.810 PAF (paroxysmal atrial fibrillation) I48.0 Hypotension I95.9
--- NOTE | 2025-05-11 18:07 | PC.NURSE ---
1805 Has sat up in bedside chair since afternoon when PT ambulated patient half way around unit then sat in chair. BAck to bed after eating all of dinner. Stands well without help. No c/o's.
[2025-05-12] VITALS (28 sets, daily range): BP systolic 77–112; BP diastolic 58–80; PULSE 76–98; RESP 15–32; TEMP 36.4; O2SAT 90–100
[2025-05-12] MEDS: polyethylene glycol 3350 Pkt 17 gm PO (04:22)
[2025-05-12] MEDS: FUROsemide 10 mg/mL SDV 4mL 40 MG IVP ×2 (04:25→17:18)
[2025-05-12 05:30] LABS: Hematocrit 35.8 % (37-53); Hemoglobin 11.30 g/dL (11.27-16.99); Mean Corpuscular HGB Conc 31.6 g/dL (30-55); Mean Corpuscular Hemoglobin 29.8 pg (27-33); Mean Corpuscular Volume 94.5 fl (82-101); Nucleated Red Blood Cells % 0 %; Platelet Count 135 10^3/cmm (157-399); Red Blood Count 3.79 10^6/uL (3.85-5.65); White Blood Count 9.84 10^3/uL (3.29-11.43)
[2025-05-12 05:48] LABS: Anion Gap 10.9 (5-19); Blood Urea Nitrogen 24 mg/dL (8-23); Calcium 9.0 mg/dL (8.5-10.5); Carbon Dioxide 37 mmol/L (22-29); Chloride 96 mmol/L (98-107); Glucose 89 mg/dL (65-115); NT Pro B Type Natriuretic Pept 12712 pg/mL (0-125); Osmolality Calculated 294 mOsm/kg (285-295); Potassium 3.9 mmol/L (3.5-5.1); Sodium 140 mmol/L (136-145)
[2025-05-12] MEDS: ARFORMOTEROL 15 MCG/2 ML NEB INHALATION ×2 (07:50→20:40)
[2025-05-12 12:00] LABS: Amylase, Pleural Fluid <10 U/L
--- NOTE | 2025-05-12 14:04 | PM.PN ---
Subjective Subjective: Patient was seen this morning, currently alert oriented x 2, following all commands, does report generalized weakness, fatigue, productive cough is improving, continues to have scant hemoptysis although he tells me is getting better, less frequent, is more dark red Vitals/I&O/Wt Last Vital Signs Temp 97.6 F 05/12/25 04:00 Pulse 82 05/12/25 13:13 Resp 20 H 05/12/25 13:05 BP 93/60 05/12/25 12:00 Pulse Ox 97 05/12/25 13:05 O2 Del Method Nasal Cannula 05/12/25 13:05 O2 Flow Rate 3 05/12/25 13:05 FiO2 40 05/08/25 14:00 05/11/25 05/12/25 05/12/25 22:59 06:59 14:59 Intake Total 560 / 860 440 / 1300 470 / 470 Output Total 1000 / 1000 1600 / 2600 Balance -440 / -140 -1160 / -1300 470 / 470 Weight last 48 hrs Weight 77 kg Weight 76.546 kg Physical Exam Const: COMMON NORMALS: no acute distress and patient oriented x3 Resp: COMMON NORMALS: normal respiratory effort, No retractions and No use of accessory muscles AUSCULTATION: crackles and wheezes Cardio: COMMON NORMALS: regular rate, regular rhythm, S1 normal heart sound present and S2 normal heart sound present RATE: regular rate RHYTHM: regular rhythm HEART SOUNDS: S1 normal heart sound present and S2 normal heart sound present GI: COMMON NORMALS: Normal to inspection, nondistended, normoactive bowel sounds present and non-tender Extremity: COMMON NORMALS: no pedal edema Neuro: COMMON NORMALS: patient oriented x3 Psych: COMMON NORMALS: mental status grossly normal Urinary Catheter Management: Mendoza: Cath Placed During This Visit: yes Reason for Continuing Indwelling Catheter: Accurate Measurement of Urinary Output in Critically Ill Patients Urinary Catheter Date of Insertion: 05/04/25 Urinary Catheter Time of Insertion: 11:56 Data 05/12/25 04:59 05/12/25 04:59 Micro: Microbiology 05/07/25 15:32 Gram Stain - Final Pleural Fluid Body Fluid Culture - Final 05/07/25 15:32 Anaerobic Culture - Preliminary Pleural Fluid 05/07/25 15:32 Fungal Smear - Preliminary Pleural Fluid 05/07/25 15:32 Mycobacterial Smear - Preliminary Body Fluids - Thoracentesis 05/04/25 07:33 Fungal Smear - Preliminary Sputum - Expectorated Sputum A&P Assessment and plan 1. Shock: 2. Ventricular arrhythmia: 3. Acute on chronic hypoxic respiratory failure: 4. Pneumonia: 5. Chronic obstructive pulmonary disease, unspecified COPD type: 6. Acute on chronic heart failure with reduced ejection fraction (HFrEF, <= 40%) and combined systolic and diastolic dysfunction: 7. Aortic stenosis, severe: Seen on echocardiogram from 04/28. 8. CAD (coronary artery disease): 9. ICD (implantable cardioverter-defibrillator) in place: 10. PAF (paroxysmal atrial fibrillation): 11. Hypotension: Plan: Acute hypoxic respiratory failure - Multifactorial - systolic CHF, pulmonary edema - Pneumonia - Bilateral pleural effusions - COPD exacerbation -Requiring heated high flow, down to nasal cannula CT/CT angio chest PE protcl [id number] IMPRESSION: 1. No pulmonary embolism. 2. Significant progression of pneumonia and edema and groundglass attenuation throughout both lungs since 04/27/2025. 3. Small bilateral pleural effusions. 4. Cardiomegaly. 5. Reactive mediastinal and hilar adenopathy. 6. Reidentified is a low density tubular lesion in the prevascular space which abuts the aortic arch. This may be related to prior surgeries. This has been present since the initial CT from 03/31/2025. Benign sterile postoperative collection. Mediastinal abscess would be difficult to exclude. There has been no progression since 03/31/2025. 7. Tricuspid regurgitation into the hepatic veins. Plan -Monitor respiratory status closely - Solu-Medrol weaned to prednisone - DuAnn Marieb -Brovana - De-escalate to Levaquin - 40 mg IV every 12 hours, -6.7 L so far Shock, resolved -Multifactorial - Concern for septic shock secondary to pneumonia - Concerns for adrenal insufficiency Blood -Levophed to maintain MAP greater than 65, currently off - Midodrine 15 mg 3 times daily - Fludrocortisone Bilateral pleural effusions - History of thoracentesis, left, 800 cc yellow clear fluid - Transudative - Cultures so far negative, will need to follow-up with pulmonary as outpatient COPD exacerbation - As above Moderate to Severe aortic stenosis - Monitor fluid status CAD status post CABG Limited echo Moderately increased left ventricular cavity size. Moderately decreased left ventricular systolic function. Left ventricular ejection fraction is estimated at 40 %. There appeared to be mid to distal anterior and apical akinesis suggestive of ischemic heart disease. Severely calcified aortic valve probably moderate to severe aortic valve stenosis There is no pericardial effusion. stress test 04/2025 IMPRESSIONS 1. Myocardial perfusion imaging revealing large area of persistent decreased tracer uptake involving the anterior, anterolateral, inferolateral, inferior and all the apical segments suggesting extensive scarring in the distribution of all the 3 coronary arteries with possible subtle areas of [place]-infarction ischemia.-(Summed stress score of 39 with resting score of 40) 2. Diminished LV ejection fraction of 32%. 3. Segmental wall motion analysis revealing severe diffuse hypokinesis of the left ventricle with a dyskinetic LV apex. 4. Moderately dilated LV cavity. No similar previous studies are available for comparison - Coronary angiogram planned for tomorrow - Aspirin, statin Atrial fibrillation - Eliquis due to persistent hemoptysis - On heparin, now on hold due to persistent hemoptysis - Beta-ketty on hold due hypotension - On amiodarone 400mg twice daily - Digoxin Ventricular arrhythmia - Status post ICD shock - Cardiology consulted - Plan on angiogram Anemia, monitor hemoglobin 11.3 Acute chronic thrombocytopenia 135, monitor Scant hemoptysis, hold heparin Disposition: Currently requiring skilled level of care Discharge planning: SNF versus LTAC Pain control: Morphine Glycemic control: Low-dose insulin sliding scale Nutrition: Dysphagia level 6 CODE STATUS DNR/DNI GI prophylaxis Protonix DVT prophylaxis SCDs, Activity: Out of bed into a chair plan for today: Moved to CSU status, continue prednisone, continue Levaquin continue IV diuresis, will continue to hold heparin/Eliquis due to persistent hemoptysis although improved PDMP PDMP Reviewed: Not Reviewed Attestations Medical Necessity Statement*: Patient requires hospitalization for fluid overload, CHF Diagnoses Shock R57.9 Ventricular arrhythmia I49.9 Acute on chronic hypoxic respiratory failure J96.21 Pneumonia J18.9 Laterality: bilateral Lung location: lower lobe of lung Pneumonia type: due to unspecified organism Chronic obstructive pulmonary disease, unspecified COPD type J44.9 COPD type: unspecified COPD Acute on chronic heart failure with reduced ejection fraction (HFrEF, <= 40%) and combined systolic and diastolic dysfunction I50.43 Aortic stenosis, severe I35.0 CAD (coronary artery disease) I25.10 Associated angina: without angina Coronary Disease-Associated Artery/Lesion type: [place] artery [place] vs. transplanted heart: [place] heart ICD (implantable cardioverter-defibrillator) in place Z95.810 PAF (paroxysmal atrial fibrillation) I48.0 Hypotension I95.9
--- NOTE | 2025-05-12 17:39 | PM.PN ---
Subjective Subjective: Philippe Dahl is a 74 year old male with past medical history of chronic systolic heart failure with EF of 40% status post CABG, ischemic cardiomyopathy, AICD in place for A-fib, COPD, recent hospitalization for congestive heart failure and pneumonia was discharged and readmitted within 24 hours for shortness of breath. He was found to be hypoxic with saturations in the 70s per EMS, multiple rounds of nebulizer solution given along with oxygen. Had some bloody cough/secretions, placed on BiPAP. In ER was found to be tachycardic and high flow nasal cannula started at 60 l /50 % FiO2. He was found to have pneumonia and started on IV vancomycin and Zosyn for hospital-acquired pneumonia and azithromycin for atypical coverage also placed on incentive spirometer and Acapella with chest vest. Possible exacerbation started on Solu-Medrol ipratropium and Xopenex every 4 hours with Mucinex. Today he has had increased difficulty breathing and started on BiPAP. Had an atrial tachycardia episode shocked by ICD. Currently on amiodarone drip. Cardiology consulted. Previous admission has had V tach and nonsustained episodes periodically. Electrolytes being replaced. Due to having bilateral pleural effusions thoracentesis is planned anticoagulation held. Thoracentesis done today 800 cc removed on the left side. 05/08/2025 Currently he is on 50 L / 45% FiO2 hyponasal cannula. Getting a chest vest Secretion issues as well. Does dip down to low upper 80s occasionally. 05/09/2025 Still coughing up some old bloody unrested sputum. Only on 5 L nasal cannula. Using Acapella as well as a chest vest regularly at least twice a day. There is stable. 05/10/2025 Clearing mucus secretions: Stilll bloody. On 3 L l nasal cannula feels well no complaints. Pending cath today. 05/12/25 No hemoptysis today> feels well. on 3L. awaiting snf Vitals/I&O/Wt Last Vital Signs Temp 97.6 F 05/12/25 04:00 Pulse 79 05/12/25 16:00 Resp 21 H 05/12/25 16:00 BP 99/73 05/12/25 16:00 Pulse Ox 97 05/12/25 16:00 O2 Del Method Nasal Cannula 05/12/25 13:05 O2 Flow Rate 3 05/12/25 13:05 FiO2 40 05/08/25 14:00 05/12/25 05/12/25 05/12/25 06:59 14:59 22:59 Intake Total 440 / 1300 470 / 470 Output Total 1600 / 2600 Balance -1160 / -1300 470 / 470 Weight last 48 hrs Weight 169 lb 12.095 oz Weight 168 lb 12.095 oz Physical Exam Urinary Catheter Management: Mendoza: Cath Placed During This Visit: yes Reason for Continuing Indwelling Catheter: Accurate Measurement of Urinary Output in Critically Ill Patients Urinary Catheter Date of Insertion: 05/04/25 Urinary Catheter Time of Insertion: 11:56 Data 05/12/25 04:59 05/12/25 04:59 Micro: Microbiology 05/07/25 15:32 Anaerobic Culture - Preliminary Pleural Fluid 05/07/25 15:32 Gram Stain - Final Pleural Fluid Body Fluid Culture - Final A&P Assessment and plan 1. Chronic obstructive pulmonary disease, unspecified COPD type: 2. Acute on chronic hypoxic respiratory failure: 3. Pneumonia: Plan: # Septic shock most likely secondary to pneumonia # Hypotension-most likely septic shock. Currently on midodrine and fludrocortisone daily # Ventricular arrhythmia shocked by ICD currently on amiodarone. Cardiology consulted reviewed records from 04/06/2025 showing no more recurrences of VT. Plan is for angiogram over the today to determine whether ventricular tachycardia was due to ischemia... change IV Lasix 40 mg to once a day. stop midodrine and fludrocortisone. Continue amiodarone PO, digoxin 125 mcg daily and metoprolol 12.5 mg twice daily Patient is taking PO intake # Acute on chronic hypoxemic respiratory failure-most likely due to a combination of acute congestive heart failure as well as pneumonia -High flow nasal cannula weaned off 05/08/2025. Currently on 3 L nasal cannula improving slowly. Due to patient's cardiac arrhythmias I would recommend getting stabilized first and cardiac clearance before we consider bronchoscopy which will be a invasive high risk procedure. Under general anesthesia. High risk of respiratory compromise with need for mechanical ventilation as well as cardiac instability. Consent obtained in preparation for bronchoscopy if needed.. Risks explained to the at bedside 05/09/2025. We may not need to do a bronchoscopy since he is clinically improving but he if he has any mucous secretion clearance issues we will tentatively plan this on Saturday. - Reviewed BG. 7.51/pCO2 40/PaO2 of 40-most likely was a VBG. 05/07/2025 - Reviewed chest CT shows bilateral effusions loculated pleural effusion on the left with extensive pulmonary infiltrates left more than right mixed with emphysematous changes. Concerning for parapneumonic effusion. - Chest x-ray reviewed-05/08/25-pulmonary vascular congestion improved from 2 days ago. Pneumonialike infiltrates are also resolving. COPD changes noted. Left costophrenic angle looks clear. He may need CT scan later to reevaluate the loculated pleural effusion. CXR is cleared - reviewed by me- infiltrates improving on the left lung. needs CT chest as outpatient in a week- please schedule # Bilateral pleural effusions Status post thoracentesis today 800 mL out. -Reviewed thoracentesis results-pH of 8.5, glucose 212, LDH 53, protein 0.6-most likely transudative reviewed results 05/08/2025. # Pneumonia-present on admission, currently covered with PO levaquin. Await cultures-no growth till date 05/08/2025 so far negative. # Acute COPD exacerbation -stoppedSolu-Medrol Q6 as well as Pulmicort and ipratropium with Xopenex. - Continue prednisone tomorrow 40 mg daily taper over a week. Is currently n.p.o. - Continue Mucinex Acapella and vest therapy for now. Continue Brovana nebulizer to his regimen. # Severe aortic stenosis- limit fluids # CAD status post CABG -S/p cath 05/11/25 # Status post ICD # Atrial fibrillation # Hyperglycemia-insulin sliding scale medium. Avoid hypoglycemia. Maintain blood sugars between 140-180. # Sedation-limit # Nutrition-okay with p.o. intake # DVT GI prophylaxis-SCDs and famotidine. Hold off on anticoagulation # Goals of care- # CODE STATUS- FULL # Disposition-okay to discharge to floor Medical decision making level- moderate Moderate MDM includes number and complexity of problems actively addressed during encounter, amount and/or complexity of data reviewed/ordered [ previous or external records, resulted lab(s)/test(s), ordered lab(s)/test(s), independent historian, independent test interpretation and other healthcare professional discussion] and described risk of complication, morbidity or mortality of management as documented This documentation was created by [employer] administrative assistant receptionist software (known for inherent administrative assistant receptionist error). Every effort was made to assure accuracy of administrative assistant receptionist. Any obvious errors or omissions should be clarified with the author of the document Telemedicine Consent Patient seen today via Telemedicine by agreement and consent of patient.? Telemedicine technology used during the visit includes audio and, as available, review of images.? The patient encounter is appropriate and reasonable under the circumstances given the patient?s particular presentation at this time.? The patient has been advised of the potential risks and limitations of this mode of treatment (including but not limited to the absence of in-person examination) and has agreed to be treated in a remote fashion in spite of them.? Any, and all, of the patient?s/patient?s family?s questions on this issue have been answered and I have made no promises or guarantees to the patient. PDMP PDMP Reviewed: Not Reviewed Attestations Medical Necessity Statement*: okay to discharge to SNF Coding Level of Care Code 76026 Diagnoses Chronic obstructive pulmonary disease, unspecified COPD type J44.9 COPD type: unspecified COPD Acute on chronic hypoxic respiratory failure J96.21 Pneumonia J18.9
--- NOTE | 2025-05-12 20:07 | PC.NURSE ---
Advised Dr. Benton patient did not have AM labs drawn today, 05/12, and no orders currently on the chart for 05/[address] Benton advised he would review patient's chart.
[2025-05-13] VITALS (15 sets, daily range): BP systolic 84–128; BP diastolic 54–73; PULSE 75–101; RESP 18–26; TEMP 36.1–37; O2SAT 84–97
[2025-05-13 04:55] LABS: Hematocrit 34.4 % (37-53); Hemoglobin 10.80 g/dL (11.27-16.99); Mean Corpuscular HGB Conc 31.4 g/dL (30-55); Mean Corpuscular Hemoglobin 29.2 pg (27-33); Mean Corpuscular Volume 93.0 fl (82-101); Nucleated Red Blood Cells % 0 %; Platelet Count 113 10^3/cmm (157-399); Red Blood Count 3.70 10^6/uL (3.85-5.65); White Blood Count 8.49 10^3/uL (3.29-11.43)
[2025-05-13] MEDS: polyethylene glycol 3350 Pkt 17 gm PO (04:57)
[2025-05-13] MEDS: FUROsemide 10 mg/mL SDV 4mL 40 MG IVP ×2 (04:59→17:01)
[2025-05-13 05:18] LABS: Alanine Aminotransferase 25 U/L (0-41); Albumin Level 3.4 g/dL (3.5-5.2); Alkaline Phosphatase 106 U/L (40-130); Anion Gap 6.5 (5-19); Aspartate Amino Transferase 20 U/L (0-40); Blood Urea Nitrogen 22 mg/dL (8-23); Calcium 8.8 mg/dL (8.5-10.5); Carbon Dioxide 40 mmol/L (22-29); Chloride 97 mmol/L (98-107); Globulin 1.4 g/dL (1.3-4.6); Glucose 91 mg/dL (65-115); Osmolality Calculated 293 mOsm/kg (285-295); Potassium 3.5 mmol/L (3.5-5.1); Sodium 140 mmol/L (136-145); Total Protein 4.8 g/dL (6.6-8.7)
[2025-05-13] MEDS: ARFORMOTEROL 15 MCG/2 ML NEB INHALATION ×2 (07:31→21:00)
--- NOTE | 2025-05-13 08:02 | P.PN_ITS ---
<Statement entered by Nahum Hollins M.D - 05/16/25 13:29> Patient was cared for in conjunction with an advanced practice practitioner.? I reviewed the chart and all pertinent data including imaging, telemetry, and laboratory results.? I discussed the patient in detail with the advanced practice practitioner.? Please see? their documentation for progress note, testing results and agreed upon plan of care for the patient. Subjective 2 Subjective: Some hemoptysis, anticoagulation held. Can reduce amiodarone to 200mg BID tomorrow, has been 7 days. He appears volume overloaded, Dr Restrepo has ordered metolazone. Vitals/I&O/Wt Last Vital Signs Temp 97.2 F L 05/13/25 04:00 Pulse 88 05/13/25 07:32 Resp 22 H 05/13/25 07:32 BP 105/73 05/13/25 04:00 Pulse Ox 92 05/13/25 07:32 O2 Del Method Nasal Cannula 05/13/25 07:32 O2 Flow Rate 3 05/13/25 07:32 FiO2 40 05/08/25 14:00 05/12/25 05/13/25 05/13/25 22:59 06:59 14:59 Intake Total 570 / 1040 Output Total 1300 / 1300 Balance -730 / -260 Weight last 48 hrs Weight 168 lb 12.095 oz Weight 168 lb 12.095 oz Weight 169 lb 12.095 oz Physical Exam 2 Const: COMMON NORMALS: no acute distress and patient oriented x3 GENERAL APPEARANCE: cooperative and comfortable ORIENTATION/CONSCIOUSNESS: Yes awake, Yes oriented to person, Yes oriented to place and Yes oriented to time Chest: COMMONS NORMALS: normal inspection of the chest and normal palpation of entire chest wall CHEST: Yes Symmetrical chest wall rise Resp: COMMON NORMALS: normal respiratory effort, No retractions and No use of accessory muscles EFFORT & INSPECTION: Yes symmetric chest movement A USCULTATION: rhonchi throughout Cardio: COMMON NORMALS: regular rate, regular rhythm, S1 normal heart sound present, S2 normal heart sound present, No gallops present (Cardio), No clicks present (Cardio), No murmurs present (Cardio) and No rub (Cardio) RATE: r egular rate RHYTHM: regular rhythm HEART SOUNDS: S1 normal heart sound present and S2 normal heart sound present PERIPHERAL PULSES: radial pulses present Extremity: GENERAL: Yes edema (2-3+ LE edema bilat below knee) Neuro: COMMON NORMALS: patient oriented x3 and moves all extremities S ENSORIUM/ORIENTATION: Yes oriented to person, Yes oriented to place and Yes oriented to time Urinary Catheter Management: Mendoza: Cath Placed During This Visit: yes Reason for Continuing Indwelling Catheter: Accurate Measurement of Urinary Output in Critically Ill Patients Urinary Catheter Date of Insertion: 05/04/25 Urinary Catheter Time of Insertion: 11:56 Data 05/13/25 04:14 05/13/25 04:14 Micro: Microbiology 05/07/25 15:32 Anaerobic Culture - Preliminary Pleural Fluid A&P Assessment and plan 1. ICD (implantable cardioverter-defibrillator) in place: 2. PAF (paroxysmal atrial fibrillation): 3. Acute on chronic heart failure with reduced ejection fraction (HFrEF, <= 40%) and combined systolic and diastolic dysfunction: 4. Aortic stenosis, severe: 5. Hypotension: 6. CAD (coronary artery disease): Plan: Lasix was reduced, however he became more volume overloaded. No respiratory distress. Continue plans for intermediate facility discharge. Agree with metolazone. PDMP PDMP Reviewed: Not Reviewed Attestations 2 Medical Necessity Statement*: per hospitalist Coding Level of Care Code Acute Code for Chg Fwd Diagnoses ICD (implantable cardioverter-defibrillator) in place Z95.810 PAF (paroxysmal atrial fibrillation) I48.0 Acute on chronic heart failure with reduced ejection fraction (HFrEF, <= 40%) and combined systolic and diastolic dysfunction I50.43 Aortic stenosis, severe I35.0 Hypotension I95.9 CAD (coronary artery disease) I25.10
--- NOTE | 2025-05-13 11:37 | PC.NURSE ---
Contacted Dr. Restrepo regarding blood pressure, MAPs at 65. Patient not symptomatic. Dr. Restrepo states as long as patient is not symptomatic this is okay.
[2025-05-13] MEDS: albumin 25 G/100 ML BAG 60 G IV ×2 (11:57→17:01)
--- NOTE | 2025-05-13 13:22 | PC.NURSE ---
Transfer Report: Report called to RITESH Marin. Patient to go 112-2. Family notified via telephone.
--- NOTE | 2025-05-13 13:58 | P.PN_ITS ---
Subjective 2 Subjective: - Patient was seen this morning, current ly alert oriented x 3, following commands, - Does report shortness of breath which is improving, he does have anasarca, no hemoptysis, does have pitting edema Vitals/I&O/Wt Last Vital Signs Temp 97.2 F L 05/13/25 04:00 Pulse 86 05/13/25 12:00 Resp 22 H 05/13/25 12:00 BP 84/56 05/13/25 12:00 Pulse Ox 88 L 05/13/25 12:00 O2 Del Method Nasal Cannula 05/13/25 12:00 O2 Flow Rate 3 05/13/25 12:00 FiO2 40 05/08/25 14:00 05/12/25 05/13/25 05/13/25 22:59 06:59 14:59 Intake Total 570 / 1040 372 / 372 Output Total 1300 / 1300 1300 / 1300 Balance -730 / -260 -928 / -928 Weight last 48 hrs Weight 76.546 kg Weight 76.546 kg Weight 77 kg Physical Exam 2 Const: COMMON NORMALS: no acute distress and patient oriented x3 Resp: COMMON NORMALS: normal respiratory effort, No retractions and No use of accessory muscles AUSCULTATION: crackles and wheezes Cardio: COMMON NORMALS: regular rate, regular rhythm, S1 normal heart sound present and S2 normal heart sound present RATE: regular rate RHYTHM: r egular rhythm HEART SOUNDS: S1 normal heart sound present and S2 normal heart sound present GI: COMMON NORMALS: Normal to inspection, nondistended, normoactive bowel sounds present and non-tender Extremity: NARRATIVE EXTREMITY EXAM: 2+ pitting edema Neuro: COMMON NORMALS: patient oriented x3 Psych: COMMON NORMALS: mental status grossly normal Urinary Catheter Management: Mendoza: Cath Placed During This Visit: yes Reason for Continuing Indwelling Catheter: Accurate Measurement of Urinary Output in Critically Ill Patients Urinary Catheter Date of Insertion: 05/04/25 Urinary Catheter Time of Insertion: 11:56 Data 05/13/25 04:14 05/13/25 04:14 Micro: Microbiology 05/07/25 15:32 Anaerobic Culture - Preliminary Pleural Fluid A&P Assessment and plan 1. Shock: 2. Ventricular arrhythmia: 3. Acute on chronic hypoxic respiratory failure: 4. Pneumonia: 5. Chronic obstructive pulmonary disease, unspecified COPD type: 6. Acute on chronic heart failure with reduced ejection fraction (HFrEF, <= 40%) and combined systolic and diastolic dysfunction: 7. Aortic stenosis, severe: Seen on echocardiogram from 04/28. 8. CAD (coronary artery disease): 9. ICD (implantable cardioverter-defibrillator) in place: 10. PAF (paroxysmal atrial fibrillation): 11. Hypotension: Plan: Acute hypoxic respiratory failure - Multifactorial - systolic CHF, pulmonary edema - Pneumonia - Bilateral pleural effusions - COPD exacerbation -Requiring heated high flow, down to nasal cannula CT/CT angio chest PE protcl [id number] IMPRESSION: 1. No pulmonary embolism. 2. Significant progression of pneumonia and edema and groundglass attenuation throughout both lungs since 04/27/2025. 3. Small bilateral pleural effusions. 4. Cardiomegaly. 5. Reactive mediastinal and hilar adenopathy. 6. Reidentified is a low density tubular lesion in the prevascular space which abuts the aortic arch. This may be related to prior surgeries. This has been present since the initial CT from 03/31/2025. Benign sterile postoperative collection. Mediastinal abscess would be difficult to exclude. There has been no progression since 03/31/2025. 7. Tricuspid regurgitation into the hepatic veins. Plan -Monitor respiratory status closely - Solu-Medrol weaned to prednisone - DuoNeb -Brovana - De-escalate to Levaquin - Today appears more fluid overloaded - Lasix 40 IV every 12 hours, add metolazone will consider further doses of Lasix based on clinical progress Shock, resolved -Multifactorial - Concern for septic shock secondary to pneumonia - Concerns for adrenal insufficiency Blood -Levophed to maintain MAP greater than 65, currently off - Midodrine 15 mg 3 times daily - Fludrocortisone Bilateral pleural effusions - History of thoracentesis, left, 800 cc yellow clear fluid - Transudative - Cultures so far negative, will need to follow-up with pulmonary as outpatient COPD exacerbation - As above Moderate to Severe aortic stenosis - Monitor fluid status CAD status post CABG Limited echo Moderately increased left ventricular cavity size. Moderately decreased left ventricular systolic function. Left ventricular ejection fraction is estimated at 40 %. There appeared to be mid to distal anterior and apical akinesis suggestive of ischemic heart disease. Severely calcified aortic valve probably moderate to severe aortic valve stenosis There is no pericardial effusion. stress test 04/2025 IMPRESSIONS 1. Myocardial perfusion imaging revealing large area of persistent decreased tracer uptake involving the anterior, anterolateral, inferolateral, inferior and all the apical segments suggesting extensive scarring in the distribution of all the 3 coronary arteries with possible subtle areas of carolynn-infarction ischemia.-(Summed stress score of 39 with resting score of 40) 2. Diminished LV ejection fraction of 32%. 3. Segmental wall motion analysis revealing severe diffuse hypokinesis of the left ventricle with a dyskinetic LV apex. 4. Moderately dilated LV cavity. No similar previous studies are available for comparison - Coronary angiogram planned for tomorrow - Aspirin, statin Atrial fibrillation - Eliquis due to persistent hemoptysis - On heparin, now on hold due to persistent hemoptysis - Beta-ketty on hold due hypotension - On amiodarone 400mg twice daily - Digoxin Ventricular arrhythmia - Status post ICD shock - Cardiology consulted - Plan on angiogram Anemia, monitor hemoglobin 11.3 Acute chronic thrombocytopenia 135, monitor Scant hemoptysis, hold heparin Disposition: Currently requiring skilled level of care Discharge planning: SNF versus LTAC Pain control: Morphine Glycemic control: Low-dose insulin sliding scale Nutrition: Dysphagia level 6 CODE STATUS DNR/DNI GI prophylaxis Protonix DVT prophylaxis SCDs, Activity: Out of bed into a chair plan for today: Moved to CSU status, continue IV diuresis for fluid overload PDMP PDMP Reviewed: Not Reviewed Attestations 2 Medical Necessity Statement*: Patient requires hospitalization for fluid overload requiring IV diuresis Diagnoses Shock R57.9 Ventricular arrhythmia I49.9 Acute on chronic hypoxic respiratory failure J96.21 Pneumonia J18.9 Laterality: bilateral Lung location: lower lobe of lung Pneumonia type: due to unspecified organism Chronic obstructive pulmonary disease, unspecified COPD type J44.9 COPD type: unspecified COPD Acute on chronic heart failure with reduced ejection fraction (HFrEF, <= 40%) and combined systolic and diastolic dysfunction I50.43 Aortic stenosis, severe I35.0 CAD (coronary artery disease) I25.10 Associated angina: without angina Coronary Disease-Associated Artery/Lesion type: [place] artery [place] vs. transplanted heart: [place] heart ICD (implantable cardioverter-defibrillator) in place Z95.810 PAF (paroxysmal atrial fibrillation) I48.0 Hypotension I95.9
--- NOTE | 2025-05-13 14:03 | PC.NURSE ---
Transfer: Patient transferred to [facility] on 3L NC via wheelchair. All belongings with patient. Patient resting in bed with 3L NC, oriented to new room and call light use.
--- NOTE | 2025-05-13 14:51 | PC.NURSE ---
Patient's granddaughter, Laura, called the unit inquiring about patient having an episode this morning and wanted to know what happened. I had received report from Terrie Madrid RN in ICU and had not received any information regarding this episode . Delmi hadn't left the floor yet from transferring patient, so I stopped her and inquired about it. She states that patient hasn't had any episodes. I spoke with patient's granddaughter and informed her that I was sorry, but patient hadn't had any episodes that we were aware of that morning and let her know that Delmi was also standing here and had taken care of him in ICU and reported he had been stable this morning. She verbalizes understanding and states that she was just concerned because patient had been texting her about an episode this morning. I told her I would speak with patient and call her back. After speaking with patient, he states that he was talking about when his defibrillator was firing. I explained that the date that happened was 05/06, a week ago. He states that he remembers that and states he was just trying to tell her about it. I told him I would call her back and let her know. He verbalized understanding. I called Laura back and explained. She laughed and stated that she was aware of that happening on 05/06 and wasn't sure why he was saying it again this morning. I encouraged her to call with any questions or concerns and she states she will. She denies further questions/concerns at this time.
[2025-05-14] VITALS (15 sets, daily range): BP systolic 98–110; BP diastolic 59–76; PULSE 75–92; RESP 15–26; TEMP 36.4–37.1; O2SAT 94–100
[2025-05-14 04:02] LABS: Hematocrit 29.8 % (37-53); Hemoglobin 9.80 g/dL (11.27-16.99); Mean Corpuscular HGB Conc 32.9 g/dL (30-55); Mean Corpuscular Hemoglobin 30.7 pg (27-33); Mean Corpuscular Volume 93.4 fl (82-101); Nucleated Red Blood Cells % 0 %; Platelet Count 108 10^3/cmm (157-399); Red Blood Count 3.19 10^6/uL (3.85-5.65); White Blood Count 9.59 10^3/uL (3.29-11.43)
[2025-05-14 04:32] LABS: Alanine Aminotransferase 23 U/L (0-41); Albumin Level 3.8 g/dL (3.5-5.2); Alkaline Phosphatase 93 U/L (40-130); Anion Gap 10.4 (5-19); Aspartate Amino Transferase 19 U/L (0-40); Blood Urea Nitrogen 24 mg/dL (8-23); Calcium 9.1 mg/dL (8.5-10.5); Carbon Dioxide 38 mmol/L (22-29); Chloride 94 mmol/L (98-107); Globulin 0.9 g/dL (1.3-4.6); Glucose 82 mg/dL (65-115); Osmolality Calculated 291 mOsm/kg (285-295); Potassium 3.4 mmol/L (3.5-5.1); Sodium 139 mmol/L (136-145); Total Protein 4.7 g/dL (6.6-8.7)
[2025-05-14 04:36] LABS: NT Pro B Type Natriuretic Pept 12520 pg/mL (0-125)
[2025-05-14] MEDS: polyethylene glycol 3350 Pkt 17 gm PO (05:27)
[2025-05-14] MEDS: albumin 25 G/100 ML BAG 60 G IV (05:43)
[2025-05-14] MEDS: FUROsemide 10 mg/mL SDV 4mL 40 MG IVP ×2 (05:59→17:46)
[2025-05-14] MEDS: ARFORMOTEROL 15 MCG/2 ML NEB INHALATION ×2 (08:20→20:04)
--- NOTE | 2025-05-14 09:38 | P.PN_ITS ---
<Statement entered by Nahum Hollins M.D - 05/16/25 13:36> Patient was cared for in conjunction with an advanced practice practitioner.? I reviewed the chart and all pertinent data including imaging, telemetry, and laboratory results.? I discussed the patient in detail with the advanced practice practitioner.? Please see? their documentation for progress note, testing results and agreed upon plan of care for the patient. Subjective 2 Subjective: LE edema better after dose of metolazone yesterday. No shortness of breath at rest, no orthopnea. He is -2300 this morning, -9300 cumulative. Vitals/I&O/Wt Last Vital Signs Temp 97.8 F 05/14/25 07:43 Pulse 80 05/14/25 08:00 Resp 18 05/14/25 08:00 BP 102/75 05/14/25 07:43 Pulse Ox 97 05/14/25 08:00 O2 Del Method Nasal Cannula 05/14/25 08:00 O2 Flow Rate 3 05/14/25 08:00 FiO2 40 05/08/25 14:00 05/13/25 05/14/25 05/14/25 22:59 06:59 14:59 Intake Total 100 / 672 100 / 672 580 / 580 Output Total 1650 / 3020 70 / 3020 Balance -1550 / -2348 30 / -2348 580 / 580 Weight last 48 hrs Weight 166 lb 7.184 oz Weight 168 lb 12.095 oz Weight 168 lb 12.095 oz Physical Exam 2 Const: COMMON NORMALS: no acute distress and patient oriented x3 GENERAL APPEARANCE: cooperative and comfortable ORIENTATION/CONSCIOUSNESS: Yes awake, Yes oriented to person, Yes oriented to place and Yes oriented to time Chest: COMMONS NORMALS: normal inspection of the chest and normal palpation of entire chest wall CHEST: Yes Symmetrical chest wall rise Resp: COMMON NORMALS: normal respiratory effort, No retractions and No use of accessory muscles EFFORT & INSPECTION: Yes symmetric chest movement A USCULTATION: rhonchi throughout Cardio: COMMON NORMALS: regular rate, regular rhythm, S1 normal heart sound present, S2 normal heart sound present, No gallops present (Cardio), No clicks present (Cardio), No murmurs present (Cardio) and No rub (Cardio) RATE: r egular rate RHYTHM: regular rhythm HEART SOUNDS: S1 normal heart sound present and S2 normal heart sound present PERIPHERAL PULSES: radial pulses present Extremity: GENERAL: Yes edema (1-2+ pitting edema bilat LE below knee, skin wrinkled this morning ) Neuro: COMMON NORMALS: patient oriented x3 and moves all extremities S ENSORIUM/ORIENTATION: Yes oriented to person, Yes oriented to place and Yes oriented to time Urinary Catheter Management: Mendoza: Cath Placed During This Visit: yes Reason for Continuing Indwelling Catheter: Acute Urinary Retention or Obstruction Urinary Catheter Date of Insertion: 05/04/25 Urinary Catheter Time of Insertion: 11:56 Data 05/14/25 03:38 05/14/25 03:38 Micro: Microbiology 05/07/25 15:32 Anaerobic Culture - Preliminary Pleural Fluid A&P Assessment and plan 1. CAD (coronary artery disease): 2. Hypotension: 3. PAF (paroxysmal atrial fibrillation): 4. ICD (implantable cardioverter-defibrillator) in place: 5. Acute on chronic heart failure with reduced ejection fraction (HFrEF, <= 40%) and combined systolic and diastolic dysfunction: 6. Chronic obstructive pulmonary disease, unspecified COPD type: 7. Acute on chronic hypoxic respiratory failure: Plan: Volume status better. Amiodarone reduced to 200mg BID since it has been 1 week. Heart rates well controlled, no ICD shocks since admission. Continue digoxin, aspirin, statin. Blood pressure adequate with midodrine and fludrocortisone. Awaiting transfer to residential. PDMP PDMP Reviewed: Not Reviewed Attestations 2 Medical Necessity Statement*: per hospitalist Coding Level of Care Code Acute Code for [facility] Diagnoses CAD (coronary artery disease) I25.10 Hypotension I95.9 PAF (paroxysmal atrial fibrillation) I48.0 ICD (implantable cardioverter-defibrillator) in place Z95.810 Acute on chronic heart failure with reduced ejection fraction (HFrEF, <= 40%) and combined systolic and diastolic dysfunction I50.43 Chronic obstructive pulmonary disease, unspecified COPD type J44.9 COPD type: unspecified COPD Acute on chronic hypoxic respiratory failure J96.21
--- NOTE | 2025-05-14 14:07 | P.PN_ITS ---
Subjective 2 Subjective: He states that he is quite hard of hearing, but hears when spoken to loudly. Overall he feels he has been improving. Edema has been slowly improving. Arrangements underway for him to undergo rehabilitation after discharge. Vitals/I&O/Wt Last Vital Signs Temp 98.1 F 05/14/25 11:59 Pulse 91 05/14/25 12:08 Resp 24 H 05/14/25 11:59 BP 102/76 05/14/25 11:59 Pulse Ox 97 05/14/25 08:00 O2 Del Method Nasal Cannula 05/14/25 08:00 O2 Flow Rate 3 05/14/25 08:00 FiO2 40 05/08/25 14:00 05/13/25 05/14/25 05/14/25 22:59 06:59 14:59 Intake Total 100 / 572 100 / 672 580 / 580 Output Total 1650 / 2950 70 / 3020 1325 / 1325 Balance -1550 / -2378 30 / -2348 -745 / -745 Weight last 48 hrs Weight 75.5 kg Weight 76.546 kg Weight 76.546 kg Physical Exam 2 Const: COMMON NORMALS: patient oriented x3 and alert GENERAL APPEARANCE: c ooperative ORIENTATION/CONSCIOUSNESS: Yes awake HENMT: COMMON NORMALS: oropharynx normal Neck/C-Spine: COMMON NORMALS: no JVD Resp: AUSCULTATION: crackles Cardio: COMMON NORMALS: no JVD, regular rhythm, S1 normal heart sound present, S2 normal heart sound present and No murmurs present (Cardio) RHYTHM: regular rhythm HEART SOUNDS: S1 normal heart sound present and S2 normal heart sound present GI: COMMON NORMALS: Normal to inspection, nondistended, normoactive bowel sounds present, Soft to palpation and non-tender PALPATION: Yes Soft to palpation Extremity: COMMON NORMALS: no joint enlargement and no pedal edema GENERAL: Yes edema (2-3+) Neuro: COMMON NORMALS: patient oriented x3 and moves all extremities S ENSORIUM/ORIENTATION: Yes alert Skin: COMMON NORMALS: no rashes or lesions noted GENERAL SKIN EXAM: no rashes or lesions noted Urinary Catheter Management: Mendoza: Cath Placed During This Visit: yes Reason for Continuing Indwelling Catheter: Acute Urinary Retention or Obstruction Urinary Catheter Date of Insertion: 05/04/25 Urinary Catheter Time of Insertion: 11:56 Data 05/14/25 03:38 05/14/25 03:38 Micro: Microbiology 05/07/25 15:32 Anaerobic Culture - Preliminary Pleural Fluid A&P Assessment and plan 1. Shock: 2. Ventricular arrhythmia: 3. Acute on chronic hypoxic respiratory failure: 4. Pneumonia: 5. Chronic obstructive pulmonary disease, unspecified COPD type: 6. Acute on chronic heart failure with reduced ejection fraction (HFrEF, <= 40%) and combined systolic and diastolic dysfunction: 7. Aortic stenosis, severe: Seen on echocardiogram from 04/28. 8. CAD (coronary artery disease): 9. ICD (implantable cardioverter-defibrillator) in place: 10. PAF (paroxysmal atrial fibrillation): 11. Hypotension: Plan: Acute hypoxic respiratory failure: Improving. He is normally on 2 L, currently on 3. Still with persistent fluid overload, acute systolic CHF. Reviewed vitals, intake and output. In negative balance 2.2 L. However, weight is still higher than his normal at 75.5 kg. BNP is also higher than his dry BNP at 12,520 currently. Continue IV diuresis. Monitor for risk of hypotension, ARACELIS, electrolyte deficiency with IV diuresis. Replenish additional potassium. Recheck electrolytes in the morning. Check magnesium. Hold albumin infusions, reassess blood pressures. Continue treatment of pneumonia and COPD exacerbation. Continue Levaquin, breathing treatments, prednisone. Noted resolved pleural effusions. CT/CT angio chest PE protcl [id number] IMPRESSION: 1. No pulmonary embolism. 2. Significant progression of pneumonia and edema and groundglass attenuation throughout both lungs since 04/27/2025. 3. Small bilateral pleural effusions. 4. Cardiomegaly. 5. Reactive mediastinal and hilar adenopathy. 6. Reidentified is a low density tubular lesion in the prevascular space which abuts the aortic arch. This may be related to prior surgeries. This has been present since the initial CT from 03/31/2025. Benign sterile postoperative collection. Mediastinal abscess would be difficult to exclude. There has been no progression since 03/31/2025. 7. Tricuspid regurgitation into the hepatic veins. Deconditioning: Continue arrangements for SNF rehabilitation. Discussed with case management, OT/PT, nursing. Shock, resolved -Multifactorial - Concern for septic shock secondary to pneumonia - Concerns for adrenal insufficiency Blood - Midodrine 15 mg 3 times daily - Fludrocortisone Bilateral pleural effusions - History of thoracentesis, left, 800 cc yellow clear fluid - Transudative - Cultures so far negative, will need to follow-up with pulmonary as outpatient COPD exacerbation - As above Moderate to Severe aortic stenosis - Monitor fluid status CAD status post CABG Limited echo Moderately increased left ventricular cavity size. Moderately decreased left ventricular systolic function. Left ventricular ejection fraction is estimated at 40 %. There appeared to be mid to distal anterior and apical akinesis suggestive of ischemic heart disease. Severely calcified aortic valve probably moderate to severe aortic valve stenosis There is no pericardial effusion. stress test 04/2025 IMPRESSIONS 1. Myocardial perfusion imaging revealing large area of persistent decreased tracer uptake involving the anterior, anterolateral, inferolateral, inferior and all the apical segments suggesting extensive scarring in the distribution of all the 3 coronary arteries with possible subtle areas of [place]-infarction ischemia.-(Summed stress score of 39 with resting score of 40) 2. Diminished LV ejection fraction of 32%. 3. Segmental wall motion analysis revealing severe diffuse hypokinesis of the left ventricle with a dyskinetic LV apex. 4. Moderately dilated LV cavity. No similar previous studies are available for comparison - Coronary angiogram results reviewed. Reviewed cardiology note. - Aspirin, statin Atrial fibrillation - Eliquis due to persistent hemoptysis - On heparin, now on hold due to persistent hemoptysis - Beta-ketty on hold due hypotension - On amiodarone 400mg twice daily - Digoxin Ventricular arrhythmia - Status post ICD shock - Cardiology consulted -Hospitalist angiogram Metoprolol has been on hold due to soft blood pressures. Continues on amiodarone. Anemia, monitor hemoglobin 9.8. Check occult blood stool. Noted history of iron deficiency anemia back in March. Has been on iron supplementation preadmission. Will need follow-up for further workup. Reassess blood counts Acute chronic thrombocytopenia 108, check blood counts Scant hemoptysis, with recurrence, Eliquis was held Disposition: Currently requiring skilled level of care Discharge planning: SNF Pain control: Morphine Glycemic control: Low-dose insulin sliding scale Nutrition: Dysphagia level 7, thin liquids CODE STATUS DNR/DNI GI prophylaxis Protonix DVT prophylaxis SCDs, PDMP PDMP Reviewed: Not Reviewed Attestations 2 Medical Necessity Statement*: Continue admission for assessment and management of acute systolic CHF. and High MDM includes amount and/or complexity of data reviewed/ordered [ resulted lab(s)/test(s), ordered lab(s)/test(s) and other healthcare professional discussion] and described risk of complication, morbidity or mortality of management as documented Diagnoses Shock R57.9 Ventricular arrhythmia I49.9 Acute on chronic hypoxic respiratory failure J96.21 Pneumonia J18.9 Laterality: bilateral Lung location: lower lobe of lung Pneumonia type: due to unspecified organism Chronic obstructive pulmonary disease, unspecified COPD type J44.9 COPD type: unspecified COPD Acute on chronic heart failure with reduced ejection fraction (HFrEF, <= 40%) and combined systolic and diastolic dysfunction I50.43 Aortic stenosis, severe I35.0 CAD (coronary artery disease) I25.10 Associated angina: without angina Coronary Disease-Associated Artery/Lesion type: [place] artery [place] vs. transplanted heart: [place] heart ICD (implantable cardioverter-defibrillator) in place Z95.810 PAF (paroxysmal atrial fibrillation) I48.0 Hypotension I95.9
[2025-05-15] VITALS (10 sets, daily range): BP systolic 95–104; BP diastolic 60–68; PULSE 68–83; RESP 10–23; TEMP 36.7–36.9; O2SAT 92–98
[2025-05-15 03:09] LABS: Hematocrit 30.5 % (37-53); Hemoglobin 10.00 g/dL (11.27-16.99); Mean Corpuscular HGB Conc 32.8 g/dL (30-55); Mean Corpuscular Hemoglobin 30.6 pg (27-33); Mean Corpuscular Volume 93.3 fl (82-101); Nucleated Red Blood Cells % 0 %; Platelet Count 115 10^3/cmm (157-399); Red Blood Count 3.27 10^6/uL (3.85-5.65); White Blood Count 11.22 10^3/uL (3.29-11.43)
[2025-05-15 03:37] LABS: Magnesium 2.0 mg/dL (1.7-2.3)
[2025-05-15 03:44] LABS: Alanine Aminotransferase 24 U/L (0-41); Albumin Level 4.0 g/dL (3.5-5.2); Alkaline Phosphatase 95 U/L (40-130); Anion Gap 5.8 (5-19); Aspartate Amino Transferase 20 U/L (0-40); Blood Urea Nitrogen 23 mg/dL (8-23); Calcium 9.4 mg/dL (8.5-10.5); Chloride 91 mmol/L (98-107); Creatinine Clr Calc Pharmacy 77.6543; Globulin 1.0 g/dL (1.3-4.6); Glucose 64 mg/dL (65-115); Osmolality Calculated 286 mOsm/kg (285-295); Sodium 137 mmol/L (136-145); Total Protein 5.0 g/dL (6.6-8.7)
[2025-05-15 04:09] LABS: Carbon Dioxide 43 mmol/L (22-29); Potassium 2.8 mmol/L (3.5-5.1)
[2025-05-15] MEDS: polyethylene glycol 3350 Pkt 17 gm PO (05:22)
[2025-05-15 05:23] LABS: NT Pro B Type Natriuretic Pept 16772 pg/mL (0-125)
--- NOTE | 2025-05-15 07:17 | PC.NURSE ---
Patient potassium lab draw was 2.8. Dr Terrell notified and new orders were given. Potassium 40meq PO q2hr x3 and to hold 40mg furosemide due to low potassium and soft bp.
[2025-05-15] MEDS: ARFORMOTEROL 15 MCG/2 ML NEB INHALATION (07:32)
--- NOTE | 2025-05-15 08:57 | P.DS_ITS ---
Discharge Providers Date of Admission: 05/04/25 08:21 Date of Discharge: May 15, 2025 Attending Provider at Admission: Blas Danielson MD Attending Provider at Discharge: Chadwick Hernadez Diagnoses at Discharge Discharge Diagnosis 1. Shock: 2. Ventricular arrhythmia: 3. Acute on chronic hypoxic respiratory failure: 4. Pneumonia: 5. Chronic obstructive pulmonary disease, unspecified COPD type: 6. Acute on chronic heart failure with reduced ejection fraction (HFrEF, <= 40%) and combined systolic and diastolic dysfunction: 7. Aortic stenosis, severe: 8. CAD (coronary artery disease): 9. ICD (implantable cardioverter-defibrillator) in place: 10. PAF (paroxysmal atrial fibrillation): 11. Hypotension: Reason for Visit Reason for Visit: sob Brief History: History taken at bedside with granddaughter and to patient. Philippe Dahl is a 74 year old male with past medical history of chronic systolic heart failure with EF of 40%, CAD post CABG, ischemic cardiomyopathy, AICD in place atrial fibrillation, COPD, hard of hearing who was discharged on 05/03 when he was treated for shortness of breath in setting of congestive heart failure, pneumonia, hypotension, concerns for nonsustained and sustained V. tach for which he underwent ACS workup and was found to have extensive scarring in the distribution of 3 coronaries with possible subtle areas of carolynn-infarct ischemia. Patient was brought in today morning with respiratory failure via EMS. EMS found him to be having saturation in 70s on 3 L. He required multiple rounds of nebulization to help his oxygen status. On route he did have multiple episodes of expectoration with some being bloody. Currently he is having thick expectoration reddish brown in color. He was placed on BiPAP in the ER. Heart rate of 120 bpm with a systolic blood pressure of 110 saturating 93% currently on heated high flow 60 L 50%. Hospital Course Hospital Course Received treatment for pneumonia and completed antibiotic course in the hospital. Continued on corticosteroid for COPD exacerbation. Was diuresed with IV diuretics for acute congestive heart failure. Was seen by cardiology and further assist with coronary angiography due to NSTEMI and ventricular tachycardia with resulting ICD shock, with findings of patent prior stent with moderate in-stent restenosis LAD mid vessel occlusion of ROMAN to LAD patent SVG graft to RCA and OM occluded [place]om[place] LCx occluded RCA with subtotal occlusion of proximal segment with very heavy calcification RCA with collaterals from ROMAN. Tachycardia determined to be likely scar based and recommendation was to continue on amiodarone. Consider ablation in case of recurrence. Thoracentesis of pleural effusion with 800 cc of clear yellow fluid with no growth on cultures, fungal still pending, with transudative appearance pathology without any malignant cells. Initial shock resolved, blood pressure soft, did not require pressor support, however, continued on midodrine 15 mg 3 times daily and with some concern for adrenal insufficiency on corticosteroid and fluid cortisone. Continued iron deficiency anemia, but maintained hemoglobin levels, will need further follow-up and workup. Continues on iron supplementation. Was taken off anticoagulation for atrial fibrillation due to hemoptysis, may be revisited if no further hemoptysis after recovery from pneumonia. Continues on low-dose aspirin. He required potassium replacement with diuresis and continues on supplement at discharge. Please follow-up and replace as needed. Due to deconditioning and frailty further approved for rehabilitation at SNF. Physical Exam Narrative: Resting, wakes up to voice. Hard of hearing. Const: COMMON NORMALS: patient oriented x3 GENERAL APPEARANCE: cooperative HENMT: COMMON NORMALS: oropharynx normal Neck/C-Spine: COMMON NORMALS: no JVD Resp: AUSCULTATION: crackles Cardio: COMMON NORMALS: no JVD, regular rhythm, S1 normal heart sound present, S2 normal heart sound present and No murmurs present (Cardio) RHYTHM: regular rhythm HEART SOUNDS: S1 normal heart sound present and S2 normal heart sound present GI: COMMON NORMALS: Normal to inspection, nondistended, normoactive bowel sounds present, Soft to palpation and non-tender PALPATION: Yes Soft to palpation Extremity: COMMON NORMALS: no joint enlargement and no pedal edema GENERAL: Yes edema (1+) OTHER: Wrinkling of skin. No weeping. Neuro: COMMON NORMALS: patient oriented x3 and moves all extremities Skin: COMMON NORMALS: no rashes or lesions noted GENERAL SKIN EXAM: no rashes or lesions noted Urinary Catheter Management: Mendoza: Cath Placed During This Visit: yes Reason for Continuing Indwelling Catheter: Acute Urinary Retention or Obstruction Urinary Catheter Date of Insertion: 05/04/25 Urinary Catheter Time of Insertion: 11:56 Discharge Data Studies Completed and Pending Completed Studies During Hospitalization Category Date Time Status CT angio chest PE protcl [id number] Stat Cat Scan 05/04/25 07:12 Completed CXRP [XR chest 1V portable [id number]] Routine Exams 05/07/25 14:58 Completed XR chest 1V portable [id number] Routine Exams 05/05/25 13:39 Completed XR chest 1V portable [id number] Routine Exams 05/08/25 10:33 Completed XR chest 1V portable [id number] Routine Exams 05/11/25 09:18 Completed XR chest 1V portable [id number] Stat Exams 05/04/25 05:57 Completed XR chest 1V portable [id number] Stat Exams 05/06/25 09:18 Completed Cytology [PTH] Routine Pth 05/07/25 17:58 Completed US thoracentesis [id number] Routine Ultrasound 05/07/25 09:42 Completed Pending at discharge Category Date Time Status OSCILLOGRAPH TECHNICIAN request for service Routine Exams 05/10/25 06:53 Taken Fungal Culture not HR/SK/BL Routine Lab 05/07/25 15:32 Results Fungal Culture not HR/SK/BL Stat Lab 05/04/25 07:33 Results Mycobacteria, Culture w/Fluor Routine Lab 05/07/25 15:32 Results NT Pro B Type Natriuretic Pept QAM Lab 05/16/25 06:00 Ordered Occult Blood Stool [Immunochemical Fecal OCB] Routine Lab 05/14/25 14:59 Uncollected Radiology Impressions Chest CTA 05/04/25 07:12 IMPRESSION: 1. No pulmonary embolism. 2. Significant progression of pneumonia and edema and groundglass attenuation throughout both lungs since 04/27/2025. 3. Small bilateral pleural effusions. 4. Cardiomegaly. 5. Reactive mediastinal and hilar adenopathy. 6. Reidentified is a low density tubular lesion in the prevascular space which abuts the aortic arch. This may be related to prior surgeries. This has been present since the initial CT from 03/31/2025. Benign sterile postoperative collection. Mediastinal abscess would be difficult to exclude. There has been no progression since 03/31/2025. 7. Tricuspid regurgitation into the hepatic veins. Thoracentesis Ultrasound 05/07/25 09:42 IMPRESSION: Uncomplicated ultrasound-guided LEFT chest thoracentesis. Chest X-Ray 05/11/25 09:18 IMPRESSION: 1. Stable left mid lung opacities concerning for infectious or inflammatory process. 2. Decreased right midlung opacities. Laboratory Results WBC 11.22 10^3/uL (3.29-11.43) 05/15/25 02:41 RBC 3.27 10^6/uL (3.85-5.65) L 05/15/25 02:41 Hgb 10.00 g/dL (11.27-16.99) L 05/15/25 02:41 Hct 30.5 % (37-53) L 05/15/25 02:41 MCV 93.3 fl (82-101) 05/15/25 02:41 MCH 30.6 pg (27-33) 05/15/25 02:41 MCHC 32.8 g/dL (30-55) 05/15/25 02:41 RDW 17.8 % (12.1-15.1) H 05/15/25 02:41 Plt Count 115 10^3/cmm (157-399) L 05/15/25 02:41 MPV 12.3 fL (7.4-10.4) H 05/15/25 02:41 Neut % (Auto) 87.8 % 05/15/25 02:41 Lymph % (Auto) 5.2 % 05/15/25 02:41 [place] % (Auto) 6.1 % 05/15/25 02:41 Eos % (Auto) 0.1 % 05/15/25 02:41 Baso % (Auto) 0.1 % 05/15/25 02:41 Neut # (Auto) 9.86 10^3/uL (1.8-7.7) H 05/15/25 02:41 Lymph # (Auto) 0.6 10^3/uL (0.8-4.8) L 05/15/25 02:41 [place] # (Auto) 0.7 10^3/uL (0.2-0.9) 05/15/25 02:41 Eos # (Auto) 0.0 10^3/uL (0.0-0.8) 05/15/25 02:41 Baso # (Auto) 0.0 10^3/uL (0.0-0.1) 05/15/25 02:41 Nucleated RBC % (auto) 0 % 05/15/25 02:41 Nucleated RBCs # 0.0 /100WBC 05/15/25 02:41 Differential Comment Yes 05/07/25 15:32 PT 14.50 SECONDS (12.1-14.9) 05/07/25 05:00 INR 1.06 (0.8-1.2) 05/07/25 05:00 Specimen Type Arterial 05/07/25 08:31 Sample Site Radial, left 05/07/25 08:31 ABG pH 7.51 (7.35-7.45) H 05/07/25 08:31 ABG pCO2 40.5 mmHg (35-45) 05/07/25 08:31 ABG pO2 39.8 mmHg (80.0-100.0) L* 05/07/25 08:31 ABG PO2/FiO2 Ratio 78 05/07/25 08:31 ABG HCO3 32.6 mmol/L (22-26) H 05/07/25 08:31 ABG O2 Saturation 77.0 05/07/25 08:31 ABG Base Excess 8.9 mmol/L (-2.0-2.0) H 05/07/25 08:31 [place]ham Test Pos 05/07/25 08:31 A-a O2 Gradient 35.7 mmHg (5-10) H 05/07/25 08:31 Hematocrit 36.1 % (42-52) L 05/07/25 08:31 Hgb O2 Saturation 75.4 % (95-100) L 05/07/25 08:31 Carboxyhemoglobin 1.3 %THgb (0.4-20.1) 05/07/25 08:31 Methemoglobin 0.7 % (0.4-1.5) 05/07/25 08:31 Total Hemoglobin 11.8 g/dL (14-18) L 05/07/25 08:31 Sodium 138.0 mmol/L (131-143) 05/07/25 08:31 Potassium 3.8 mmol/L (3.5-5.0) 05/07/25 08:31 Glucose 246.0 mg/dL (70-115) H 05/07/25 08:31 Ionized Calcium 1.2 mmol/L (1.1-1.4) 05/07/25 08:31 O2 Delivery Device Nc 05/07/25 08:31 O2 Liters/Min 60.0 % 05/07/25 08:31 FiO2 51.0 % 05/07/25 08:31 Dress Operator ID [place] 05/07/25 08:31 Sodium 137 mmol/L (136-145) 05/15/25 02:41 Potassium 2.8 mmol/L (3.5-5.1) L* 05/15/25 02:41 Chloride 91 mmol/L (98-107) L 05/15/25 02:41 Carbon Dioxide 43 mmol/L (22-29) H* 05/15/25 02:41 Anion Gap 5.8 (5-19) 05/15/25 02:41 BUN 23 mg/dL (8-23) 05/15/25 02:41 Creatinine 0.9 mg/dL (0.7-1.2) 05/15/25 02:41 GFR Calculation Not Reportable 05/15/25 02:41 Glucose 64 mg/dL (65-115) L 05/15/25 02:41 POC Glucose 146 mg/dL (70-110) H 05/15/25 06:14 Calculated Osmolality 286 mOsm/kg (285-295) 05/15/25 02:41 Lactic Acid 3.0 mmol/L (0.5-2.2) H 05/04/25 06:42 Lactic Acid (Sepsis) 2.4 mmol/L (0.5-2.2) H 05/04/25 12:19 Calcium 9.4 mg/dL (8.5-10.5) 05/15/25 02:41 Phosphorus 1.9 mg/dL (2.5-4.5) L 05/12/25 04:59 Magnesium 2.0 mg/dL (1.7-2.3) 05/15/25 02:41 Total Bilirubin 1.1 mg/dL (0.15-1.2) 05/15/25 02:41 AST 20 U/L (0-40) 05/15/25 02:41 ALT 24 U/L (0-41) 05/15/25 02:41 Alkaline Phosphatase 95 U/L (40-130) 05/15/25 02:41 Lactate Dehydrogenase 243 U/L (135-225) H 05/04/25 15:04 Troponin T Baseline 84 ng/L (0-15) H 05/04/25 06:37 Troponin T 120 Minute 87.05 ng/L (0-15) H 05/04/25 08:37 Delta Troponin T 3.05 ABS# (0-10) 05/04/25 08:37 Troponin T Hi Sens 6Hr 104.5 ng/L (0-15) H 05/04/25 12:19 Troponin T Hi Sens 6Hr Delta 20.5 ng/L (0-12) H* 05/04/25 12:19 NT-Pro-B Natriuret Pep 60760 pg/mL (0-125) H 05/15/25 02:41 Total Protein 5.0 g/dL (6.6-8.7) L 05/15/25 02:41 Albumin 4.0 g/dL (3.5-5.2) 05/15/25 02:41 Globulin 1.0 g/dL (1.3-4.6) L 05/15/25 02:41 Procalcitonin 0.46 ng/mL (0-0.5) 05/05/25 04:52 Urine Color Yellow (Yellow) 05/04/25 09:50 Urine Appearance Clear (CLEAR) 05/04/25 09:50 Urine pH 6.0 (5-7) 05/04/25 09:50 Ur Specific [place] 1.038 (1.005-1.030) H 05/04/25 09:50 Urine Protein Trace (Negative) A 05/04/25 09:50 Urine Glucose (UA) Negative (Normal) 05/04/25 09:50 Urine Ketones Negative (Negative) 05/04/25 09:50 Urine Blood Negative (Negative) 05/04/25 09:50 Urine Nitrate Negative (Negative) 05/04/25 09:50 Urine Bilirubin Negative (Negative) 05/04/25 09:50 Urine Urobilinogen 1.0 mg/dL (Negative) 05/04/25 09:50 Ur Leukocyte Esterase Negative (Negative) 05/04/25 09:50 Urine RBC 0-2 /hpf (0-2) 05/04/25 09:50 Urine WBC 0-5 /hpf (0-5) 05/04/25 09:50 Ur Squamous Epith Cells 0-5 /hpf (0-5) 05/04/25 09:50 Amorphous Sediment Not Reportable 05/04/25 09:50 Urine Bacteria None seen /hpf (NONE) 05/04/25 09:50 Hyaline Casts 0.81 /lpf 05/04/25 09:50 Fluid Color Yellow 05/07/25 15:32 Fluid Appearance Clear 05/07/25 15:32 Fluid Specific Grav 1.010 05/07/25 15:32 Fluid pH 8.5 05/07/25 15:32 Fluid WBC 9 /uL 05/07/25 15:32 Fluid RBC 1.000 10^3/uL 05/07/25 15:32 Fld Polynuclear WBCs # 0.004 05/07/25 15:32 Fld Polynuclear WBCs % 44.500 % 05/07/25 15:32 Fl Mononucl WBCs #(Auto) 0.005 05/07/25 15:32 Fl Mononuclear % Auto 55.500 % 05/07/25 15:32 Fld Crystal Laterality Left pleural effusio 05/07/25 15:32 Fluid Glucose 212.0 mg/dL 05/07/25 15:32 Fluid Albumin 0.4 g/dL 05/07/25 15:32 Fluid LDH 53 U/L 05/07/25 15:32 Fluid Alk Phosphatase 5 IU/L 05/07/25 15:32 Fluid Cholesterol 5 mg/dL (0-200) 05/07/25 15:32 Fluid Triglycerides 17 mg/dL (0-150) 05/07/25 15:32 Fluid Uric Acid 3 mg/dL 05/07/25 15:32 Pleural Total Protein 0.6 g/dL 05/07/25 15:32 Pleural Amylase <10 U/L 05/07/25 15:32 Vancomycin Trough 15.8 ug/mL (10-15) H 05/10/25 19:09 Digoxin 0.9 ng/mL (0.6-1.2) 05/10/25 04:53 Adenovirus (PCR) Not detected (NOT DETECT) 05/04/25 10:47 C. pneumoniae DNA (PCR) Not detected (NOT DETECT) 05/04/25 10:47 Coronavirus 229E (PCR) Not detected (NOT DETECT) 05/04/25 10:47 Human Metapneumovir PCR Not detected (NOT DETECT) 05/04/25 10:47 Influenza A (H1) PCR Not detected (NOT DETECT) 05/04/25 10:47 Influenza A (PCR) Negative (Negative) 05/04/25 07:33 Influ A (H1/09) PCR Not detected (NOT DETECT) 05/04/25 10:47 Influenza A (H3) PCR Not detected (NOT DETECT) 05/04/25 10:47 Influenza Type A (PCR) Not detected (NOT DETECT) 05/04/25 10:47 Influenza Type B (PCR) Not detected (NOT DETECT) 05/04/25 10:47 M. pneumoniae (PCR) Not detected (NOT DETECT) 05/04/25 10:47 Parainfluenza 1 (PCR) Not detected (NOT DETECT) 05/04/25 10:47 Parainfluenza 2 (PCR) Not detected (NOT DETECT) 05/04/25 10:47 Parainfluenza 3 (PCR) Not detected (NOT DETECT) 05/04/25 10:47 Parainfluenza 4 (PCR) Not detected (NOT DETECT) 05/04/25 10:47 Pneumocystis Source Sputum 05/04/25 07:33 Pneumocyst jirovecii PCR Not detected (Not Detected) 05/04/25 07:33 RSV (PCR) Negative (Negative) 05/04/25 07:33 RSV Type A (PCR) Not detected (NOT DETECT) 05/04/25 10:47 RSV Type B (PCR) Not detected (NOT DETECT) 05/04/25 10:47 Entero/Rhino (PCR) Not detected (NOT DETECT) 05/04/25 10:47 SARS-CoV-2 (PCR) Not detected (NOT DETECT) 05/04/25 10:47 Beta-(1,3)-D-Glucan <31 pg/mL (<60) 05/04/25 06:37 B-(1,3)-D-Glucan Intrp Negative (Negative) 05/04/25 06:37 Vitals Last Vital Signs Temp 98.2 F 05/15/25 07:38 Pulse 75 05/15/25 07:38 Resp 23 H 05/15/25 07:38 BP 95/60 05/15/25 07:38 Pulse Ox 97 05/15/25 07:38 O2 Del Method Nasal Cannula 05/15/25 07:38 O2 Flow Rate 2 05/15/25 07:33 FiO2 40 05/08/25 14:00 Discharge Plan Discharge Patient Disposition: Xfer SNF Condition: Stable Prescriptions: New fludrocortisone 0.1 mg Tablet 0.2 mg PO DAILY Qty: 60 0RF polyethylene glycol 3350 17 gram Powder In Packet 17 g PO DAILY Qty: 100 0RF potassium chloride 10 mEq capsule, extended release 20 meq PO DAILY Qty: 30 0RF amiodarone [Pacerone] 200 mg Tablet 200 mg PO BID Qty: 90 0RF Continued atorvastatin 40 mg tablet 40 mg PO DAILY Qty: 90 1RF citalopram 20 mg tablet 20 mg PO DAILY Qty: 90 1RF budesonide 0.5 mg/2 mL Suspension For Nebulization 0.5 mg inhalation BID.RESPIRATORY Qty: 60 0RF ipratropium bromide 0.02 % Solution 0.5 mg inhalation Q8H Qty: 150 0RF pantoprazole 40 mg Tablet,Delayed Release (Dr/Ec) 40 mg PO DAILY Qty: 30 0RF prednisone 10 mg tablet See Taper PO DIRECTED Qty: 42 0RF Taper: predniSONE 60-10 60 mg Daily for 2 Days and 0 Hour 50 mg Daily for 2 Days and 0 Hour 40 mg Daily for 2 Days and 0 Hour 30 mg Daily for 2 Days and 0 Hour 20 mg Daily for 2 Days and 0 Hour 10 mg Daily for 2 Days and 0 Hour Rx Instructions: see taper instructions furosemide [Lasix] 20 mg tablet 40 mg PO QAM PRN (Reason: weight gain) Qty: 20 0RF Rx Instructions: Rhythm at rebound digoxin 125 mcg (0.125 mg) Tablet 125 mcg PO DAILY@1200 Qty: 90 0RF midodrine 5 mg Tablet 15 mg PO TID Qty: 90 0RF aspirin 81 mg Tablet,Delayed Release (Dr/Ec) 81 mg PO DAILY ferrous sulfate [FeroSul] 325 mg (65 mg iron) tablet 325 mg PO DAILY tamsulosin 0.4 mg capsule 0.4 mg PO DAILY Discontinued metoprolol tartrate 25 mg Tablet 12.5 mg PO BID@0900,2100 30 Days Qty: 30 0RF Eliquis 5 mg tablet 5 mg PO BID Discharge Order = DC NOW: Discharge Order (Routine); Ordered 05/15/25 Ordered By: Chadwick Hernadez Referrals: [facility] [Outside] Dimple Ybarra FNP [Nurse Practitioner, Family Practice] - 4-7 days Char Linder FNP [Nurse Practitioner, Cardiology] - 06/04/25 9:00 am Discharge Diet: As Directed and Cardiac Patient Instructions: Atrial Fibrillation, COPD, Heart Failure (DC), Aortic Stenosis (DC), Pneumonitis (DC), Heart Catheterization (DC), Acute Respiratory Failure (ED), Opioid Safety, Patient Portal & Krystin Instructions Activity Restrictions/Additional Instructions: Continue cardiac diet, dysphagia level 7 easy to chew. Complete prednisone taper for COPD exacerbation. Continue Lasix for congestive heart failure. Continue nasal cannula oxygen 2 L, wean down as tolerating, maintain saturation 92%. Monitor blood pressures, avoid hypotension, hold antihypertensive medications. Continue midodrine and fludrocortisone. Follow-up with primary provider regarding iron deficiency anemia. Follow-up blood counts. Follow-up labs on Saturday to reassess electrolytes due to need for potassium replacement. Add nutritional shakes to meals. Discharge Attestations Time Spent in Discharge Care*: greater than 30 min Status at Discharge: Cognitive status at discharge: cognitively intact , Behavioral status at discharge: cooperative , Quality Metrics Clinical Quality Measures [ No reported AMI, CVA or VTE this stay] Coding Level of Care Code 60931 Total time (in minutes) for Discharge: 50 Diagnoses Shock R57.9 Ventricular arrhythmia I49.9 Acute on chronic hypoxic respiratory failure J96.21 Pneumonia J18.9 Laterality: bilateral Lung location: lower lobe of lung Pneumonia type: due to unspecified organism Chronic obstructive pulmonary disease, unspecified COPD type J44.9 COPD type: unspecified COPD Acute on chronic heart failure with reduced ejection fraction (HFrEF, <= 40%) and combined systolic and diastolic dysfunction I50.43 Aortic stenosis, severe I35.0 CAD (coronary artery disease) I25.10 Associated angina: without angina Coronary Disease-Associated Artery/Lesion type: [place] artery [place] vs. transplanted heart: [place] heart ICD (implantable cardioverter-defibrillator) in place Z95.810 PAF (paroxysmal atrial fibrillation) I48.0 Hypotension I95.9
--- NOTE | 2025-05-15 12:10 | PC.NURSE ---
nurse called daughter to ask about her eta of picking up patient and she stated that her dad was mad at her and wouldnt answer her text messages so she would not be picking him up. She also stated she is currently caring for her grandchild and would not be able to come get him anyway.
--- NOTE | 2025-05-15 13:05 | PC.NURSE ---
nurse and case management just spoke with patient about getting a ride home and the patient stated he did not want his daughter to pick him up. Both nurse and case management told patient that was his only option and he needed to call her because he was discharged and we have no other options. Patient agreed to call his daughter. This was at 1304. Nurse going to call daughter and see if she agreed to come and get him.
== END 2025-05-15 15:12 | disposition skilled nursing facility (03) | DRG 871 ==
LOC: ER 07:44 → ICU 08:21 → CSU 05-13 13:48
PROVIDERS: Family Medicine; Internal Medicine; Admitting Provider Student in an Organized Health Care Education/Training Program; Emergency Provider Family Medicine; Visit Provider Internal Medicine
PROC: 4A023N7 Measurement of Cardiac Sampling and Pressure, Left Heart, Percutaneous Approach (ICD-10-PCS; principal; 2025-05-10 11:30)
DX: A41.9 Sepsis, unspecified organism (principal); I50.43 Acute on chronic combined systolic (congestive) and diastolic (congestive) heart failure; J18.9 Pneumonia, unspecified organism; J96.21 Acute and chronic respiratory failure with hypoxia; R65.21 Severe sepsis with septic shock; J44.0 Chronic obstructive pulmonary disease with (acute) lower respiratory infection; J44.1 Chronic obstructive pulmonary disease with (acute) exacerbation; I47.0 Re-entry ventricular arrhythmia; I35.0 Nonrheumatic aortic (valve) stenosis; I25.10 Atherosclerotic heart disease of native coronary artery without angina pectoris; Z95.810 Presence of automatic (implantable) cardiac defibrillator; Z95.1 Presence of aortocoronary bypass graft; Z79.01 Long term (current) use of anticoagulants; Z79.82 Long term (current) use of aspirin; K21.9 Gastro-esophageal reflux disease without esophagitis; E78.5 Hyperlipidemia, unspecified; Z90.49 Acquired absence of other specified parts of digestive tract; F17.210 Nicotine dependence, cigarettes, uncomplicated; R73.9 Hyperglycemia, unspecified; Z66 Do not resuscitate; Z99.81 Dependence on supplemental oxygen; D69.6 Thrombocytopenia, unspecified; D50.9 Iron deficiency anemia, unspecified
CPT/HCPCS: 32555; 36415; 36416; 36573; 36592; 36600; 51702; 71045; 71275; 80048; 80051; 80053; 80162; 80202; 80503; 81001; 82042; 82150; 82330; 82465; 82805; 82945; 82962; 83605; 83615; 83735; 83880; 83986; 84075; 84100; 84132; 84145; 84157; 84315; 84478; 84484; 84560; 85025; 85610; 86403; 87015; 87040; 87070; 87075; 87102; 87116; 87205; 87206; 87449; 87486; 87581; 87633; 87637; 87798; 87801; 88112; 89050; 92523; 92526; 92610; 93005; 93455; 94640; 94660; 94664; 94669; 96365; 96367; 96372; 97110; 97116; 97163; 97165; 97530; 97535; 99152; 99153; 99291; C1751; C1760; C1769; C1887; C1894; G0269; J0282; J0283; J0612; J1644; J1815; J1938; J2250; J2543; J2919; J3010; J3373; J3475; J3480; J3490; J7030; J7050; J7512; J7605; J7608; J7614; J7626; J7644; J9999; P9046; Q0144; Q9967

== ENCOUNTER 2025-06-02 19:07 | Emergency (ER) | payer MEDICARE, SELFPAY ==
--- OUTSIDE RECORDS SUMMARY | 2024-08-03 08:38 | XMS_ITS | Encounter Summary ---
Author Organization [facility] Address [address] [place] [address] Care Team Providers Care Scheduling Agent Name Role Phone Willie Byrne MD Primary Care Provider [phone] Reason for Visit * Auth/Cert (Routine) Specialty Diagnoses / Procedures Referred By Jaya t Referred To Contact Perioperative Diagnoses Atherosclerosis of [place] artery of both lower extremities with intermittent claudication Atherosclerosis of [place] artery of right lower extremity with intermittent claudication Procedures CHG ANGIOGRAPHY EXTREMITY UNILATERAL RS&I [place] SLCTV CATHJ 3RD+ ORD SLCTV ABDL PEL/LXTR BRNCH CHG AORTOGRAPHY ABDOMINAL SERIALOGRAPHY RS&I [place] REVASCULARIZATION ILIAC ARTERY ANGIOP 1ST VSL [place] REVSC OPN/PRQ ILIAC ART W/STNT PLMT & ANGIOPLSTY [place] REVSC OPN/PRQ FEM/POP W/ATHRC/ANGIOP SM VSL [place] REVSC OPN/PRQ FEM/POP W/STNT/ATHRC/ANGIOP SM VSL [place] REVSC OPN/PRQ TIB/ABNER W/ATHRC/ANGIOP SM VSL [place] REVSC OPN/PRQ TIB/ABNER W/STNT/ATHR/ANGIOP SM VSL FEMORAL ANGIOGRAPHY WITH INTERVENTION RIGHT Ronal Vicente MD [address] [place] [address] Phone: tel: fax: [facility] Operating Room [address] [place] [address] Phone: tel: fax: Referral ID Status Reason Start Date Expiration Date Visits Re quested Visits Authorized [id number] 1 1 Encounter Details Date Type Department Care Team (Latest Contact Info) Description 08/03/2024 8:38 AM 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 Hemodynamics - LVEDP was 9 mmHg. [...] 04:36 AM PHBLOODPOC 7.43 08/06/2024 12:17 PM [id number] 32 (L) 08/06/2024 12:17 PM PO2POC 76 (L) 08/06/2024 12:17 PM RND9PQA 21 (L) 08/06/2024 12:17 PM S0YSVMMC 43 08/08/2024 04:36 AM JYK2DLV 22 (L) 08/06/2024 12:17 PM BEPOC -3 (L) 08/06/2024 12:17 PM LACTATE 1.9 08/15/2024 12:26 PM PATIENTTEMP 37.0 08/04/2024 02:50 PM PHTEMPCORR 7.43 08/06/2024 12:17 PM [id number] 32 (L) 08/06/2024 12:17 PM NJ9VDRZYHA 76 (L) 08/06/2024 12:17 PM Lactic acid: [...] per bedside nursing. Family communication: Updated EM3 N STOCK WASHER documented in this encounter Plan of Treatment Not on file documented as of this encounter Visit Diagnoses Not on filedocumented in this encounter Care Teams Scheduling Agent Relationship Specialty Start Date End Date Willie Byrne MD [address] [place] [phone] PCP - General Family Practice 02/18/23 03/07/25 documented as of this encounter
[2025-06-02] VITALS (55 sets, daily range): BP systolic 98–136; BP diastolic 48–92; PULSE 72–116; RESP 18–42; TEMP 36.4; O2SAT 81–100; BMI 25.7
--- NOTE | 2025-06-02 18:53 | XRR_ITS ---
PROCEDURE INFORMATION: Exam: XR Chest Exam date and time: 06/02/2025 7:07 PM Age: 74 years old Clinical indication: Shortness of breath; Prior surgery; Surgery date: 6+ months; Surgery type: Open heart, pacemaker, spinal fusion; Additional info: SOB TECHNIQUE: Imaging protocol: Radiologic exam of the chest. Views: 1 view. COMPARISON: CR XR chest 1V portable [id number] 05/11/2025 11:06 AM FINDINGS: Tubes, catheters and devices: Left chest cardiac rhythm device. Lungs: Increased left lung opacities as well as increased patchy opacities in the right upper lobe, nonspecific although concerning for infectious or inflammatory process with other etiologies not excluded. Pleural spaces: Unremarkable. Questionable mild effusion at the left lung base. No pneumothorax. Heart/Mediastinum: Post cardiac surgery residuals. Bones/joints: Mild degenerative changes of the AC joints. XR/XR chest 1V portable [id number] IMPRESSION: Increased left lung opacities as well as increased patchy opacities in the right upper lobe, nonspecific although concerning for infectious or inflammatory process with other etiologies not excluded.
--- NOTE | 2025-06-02 18:54 | ECG_ITS ---
[employer] Test Date: 2025-06-02 Pat Name: Philippe Dahl Department: Room: Gender: Male Electronic Technician: : 1950 Requested By: Javier Machuca Order Number: [id number] Dandy MD: Cassandra Pedro M.D. Measurements Intervals [place] Rate: 75 P: 58 MS: 140 QRS: 143 QRSD: 112 T: 0 QT: 240 QTc: 268 Interpretive Statements Supraventricular rhythm, possibly sinus. Heavy artifact Further interpretation is not possible Need to repeat Electronically Signed On 06-03-2025 17:26:44 [employer] by Cassandra Pedro M.D. [email or web address]
--- NOTE | 2025-06-02 19:49 | ED_ITS ---
HPI - SOB/Dyspnea 2 General: Chief Complaint: Shortness of Breath/Dyspnea Stated Complaint: SOB, Poss UTI, Fluid Retention Time Seen by Provider: 06/02/25 19:17 History of Present Illness: HPI Narrative: Patient is a 74 male with history of COPD, 3 L O2 dependency, presents to the emergency room with lower extremity edema, and shortness of breath. Patient is extremely hard of hearing, however states he has been short of breath the last 3 months. He has been at [facility] for the last 2-1/2 months, after hospitalization with [facility] Patient's granddaughter has noted when he has had issues with hallucinations at night at [facility], he has not had his oxygen on. Patient does recall these. Patient does not think his shortness of breath is worse. He has new sacral/coccyx decub's. Granddaughter at bedside and relates she has had multiple issues with the intermediate care. She states her grandfather is near discharge, and she thought they need to be readmitted. Associated symptoms: Deny abdominal pain, chest congestion, chest pain, diaphoresis, dizziness, extremity pain, fever(s), hemoptysis, lightheadedness, nausea, orthopnea, palpitations, polydipsia, polyuria, syncope or vomiting Related Data Home Medications ?Medication ?Instructions ?Recorded ?Confirmed ferrous sulfate 325 mg (65 mg 325 mg PO DAILY 04/01/25 05/04/25 iron) tablet (FeroSul) tamsulosin 0.4 mg capsule 0.4 mg PO DAILY 04/01/2505/18 aspirin 81 mg tablet,delayed 81 mg PO DAILY 05/04/25 1 07/04/24 release Previous Rx's ?Medication ?Instructions ?Recorded atorvastatin 40 mg tablet 40 mg PO DAILY #90 tabs 02/23 03/15 citalopram 20 mg tablet 20 mg PO DAILY #90 tabs 02/23 03/15 budesonide 0.5 mg/2 mL suspension 0.5 mg (2 mL) inhala tion 04/08/25 for nebulization BID.RESPIRATORY #60 mL ipratropium bromide 0.02 % 0.5 mg (2.5 mL) inhalation Q8H 04/08/25 solution for inhalation #150 mL pantoprazole 40 mg tablet,delayed 40 mg PO DAILY #30 t abs 04/08/25 release prednisone 10 mg tablet See Taper PO DIRECTED #42 tabs 04/08/25 furosemide 20 mg tablet (Lasix) 40 mg (2 x 20 mg) PO Q AM PRN 04/24/25 weight gain #20 tabs digoxin 125 mcg (0.125 mg) tablet 125 mcg PO DAILY@120 0 #90 tabs 05/03/25 midodrine 5 mg tablet 15 mg (3 x 5 mg) PO TID #90 tabs 05/03/25 fludrocortisone 0.1 mg tablet 0.2 mg (2 x 0.1 mg) PO D AILY #60 05/14/25 tabs polyethylene glycol 3350 17 gram 17 g PO DAILY #100 ea 05/14/25 oral powder packet amiodarone 200 mg tablet (Pacerone) 200 mg PO BID #90 tabs 05/15/25 potassium chloride 10 mEq 20 meq (2 x 10 mEq) PO DAILY #30 05/15/25 capsule,extended release caps acetazolamide 250 mg tablet 250 mg PO DAILY #30 tabs 1 08/03/24 potassium chloride 10 mEq 20 meq (2 x 10 mEq) PO BID # 120 06/02/25 capsule,extended release caps Allergies Allergy/AdvReac Type Severity Reaction Status Date / Time adhesive Allergy Unknown Verified 06/02/25 19:19 Review of Systems 2 General: Reports: 10 or more systems reviewed and unremarkable except in HPI and below Const: Denies: fever(s), chills, body aches, change in appetite, change in weight, malaise, night sweats, diaphoresis, change in sleep pattern, daytime sleepiness or snoring Eyes: Denies: change in vision, blurry vision, photophobia, eye discomfort or eye discharge ENMT: Denies: throat pain, enlarged tonsils, hoarseness, mouth pain, oral sores, dry mouth, tinnitus, nasal congestion or post nasal drip Card: Denies: chest pain, palpitations, irregular heart rhythm, edema, swelling of feet/ankles, lightheadedness, syncope, pre-syncope, dyspnea on exertion, orthopnea, leg pain with exertion or acrocyanosis Resp: Denies: dyspnea, productive cough, non-productive cough, wheezing, stridor, pain on inspiration, change in phlegm color, hemoptysis or chest congestion GI: Denies: abdominal pain, nausea, vomiting, hematemesis, coffee ground emesis, dysphagia, heartburn, diarrhea, constipation, bloating, GI cramping, change in bowel habits, pain on defecation, hematochezia or melena : Denies: flank pain, difficulty urinating, dysuria, urinary frequency, urinary urgency, urinary hesitancy, urinary dribbling, difficulty starting urination, change in urine stream, nocturia or hematuria Musc: Denies: neck pain, back pain, extremity pain, joint pain, joint swelling, joint redness, joint stiffness or limited range of motion Neuro: Denies: headache(s), numbness in extremities, weakness in extremities, sensory changes, lack of coordination, difficulty walking, frequent falls, dizziness, vertigo, confusion, Slurred speech present, difficulty communicating thoughts or seizure-like activity Psych: Denies: anxiety, depression, mood swings, panic attacks, hopelessness or irritability Endo: Denies: polyuria, polydipsia, tired all the time, cold intolerance, excessive sweating, flushing or heat intolerance Jaleel/Lymph: Denies: easy bruising or easy bleeding All/Imm: Denies: tongue swelling, facial swelling or acute wheezing PFSH ED 2 PFSH: Medical History (Updated 06/02/25 @ 23:14 by BETH Balderrama) Acute on chronic hypoxic respiratory failure Heart failure Afib COPD (chronic obstructive pulmonary disease) GERD (gastroesophageal reflux disease) HUSLIA (hard of hearing) CAD (coronary artery disease) Hx of myocardial infarction Hyperlipidemia Depression Hypertension Surgical History Hx of CABG Hx of appendectomy Hx of heart artery stent Family History Father No problems noted. Mother Cancer stomach Social History Smoking and tobacco/nicotine status: current every day tobacco/nicotine user cigarettes [ Other cigarette details: 2 to 3 packs a week] Alcohol intake: current Alcohol intake frequency: few times a month Physical Exam 2 Const: COMMON NORMALS: no acute distress, average body habitus and patient oriented x3 HENMT: COMMON NORMALS: normocephalic and atraumatic HEAD & SCALP: n ormocephalic and atraumatic Lymph: LYMPHATIC: no lymphadenopathy noted Chest: COMMONS NORMALS: normal inspection of the chest and normal palpation of entire chest wall Resp: COMMON NORMALS: normal respiratory effort and No retractions EFFORT & INSPECTION: Yes able to speak in complete sentences, No tachypneic and No respiratory distress AUSCULTATION: crackles Laterality: bilateral and posterior Cardio: COMMON NORMALS: regular rate and regular rhythm RATE: regular rate RHYTHM: regular rhythm HEART SOUNDS: Murmur heart sound present GI: COMMON NORMALS: Normal to inspection, nondistended, normoactive bowel sounds present, Soft to palpation and No hepatosplenomegaly present P ALPATION: Yes Soft to palpation and Yes No hepatosplenomegaly present OTHER: Negative HJR : COMMON NORMALS: Yes no CVA tenderness BLADDER/KIDNEY EXAM: Yes no CVA tenderness Back/Pelvis: COMMON NORMALS: no CVA tenderness Extremity: COMMON NORMALS: normal to inspection, full ROM and capillary refill normal Neuro: COMMON NORMALS: patient oriented x3 and CN's II-XII intact bilaterally Psych: COMMON NORMALS: mental status grossly normal, Normal thought process present and cooperative THOUGHT PROCESS: Normal thought process present Course 2 Vital Signs: Vital signs: Vital Signs Temperature 97.6 F 06/02/25 19:07 Pulse Rate 116 H 06/02/25 22:40 Respiratory Rate 30 H 06/02/25 22:40 Blood Pressure 127/83 06/02/25 22:40 Pulse Oximetry 90 06/02/25 22:40 Oxygen Delivery Me thod Nasal Cannula 06/02/25 19:57 Oxygen Flow Rate 3 06/02/25 19:57 MDM - SOB/Dyspnea Medical Decision Making Patient has minimal shortness of breath that he admits to in the last 3 months. He does have lower extremity edema that appears consistent with third spacing and hypo proteinuria. He is not having any early satiety, weight gain, increasing shortness of breath, or hypoxia associated with a bad acute exacerbation of CHF. I do not have any admission criteria at this time. He does have high CO2 venous/bicarb arterial, indicating metabolic alkalosis, and with the third spacing, will add acetazolamide daily. This most likely can be decreased to 3 times a week. As well, I discussed potassium intake with patient and granddaughter, protein intake. They all state understanding. I do suspect the association of hallucinations is with him being pulled off of his oxygen. He is consistently running in the low 90s when it is present and on. Medical Records I reviewed the patient's medical records. Lab Data I reviewed the patient's lab results. 06/02/25 20:04 06/02/25 20:04 Labs/Radiology: Radiology Impressions Chest X-Ray 06/02/25 18:53 IMPRESSION: Increased left lung opacities as well as increased patchy opacities in the right upper lobe, nonspecific although concerning for infectious or inflammatory process with other etiologies not excluded. Laboratory Results WBC 6.00 10^3/uL (3.29-11.43) 06/02/25 20: RBC 3.22 10^6/uL (3.85-5.65) L 06/02/25 20: Hgb 9.70 g/dL (11.27-16.99) L 06/02/25 20: Hct 31.1 % (37-53) L 06/02/25 20: MCV 96.6 fl (82-101) 06/02/25 20: MCH 30.1 pg (27-33) 06/02/25 20: MCHC 31.2 g/dL (30-55) 06/02/25 20: RDW 18.2 % (12.1-15.1) H 06/02/25 20: Plt Count 139 10^3/cmm (157-399) L 06/02/25 20: MPV 11.0 fL (7.4-10.4) H 06/02/25 20: Neut % (Auto) 80.3 % 06/02/25 20: Lymph % (Auto) 9.2 % 06/02/25 20: [place] % (Auto) 9.5 % 06/02/25 20: Eos % (Auto) 0.3 % 06/02/25 20: Baso % (Auto) 0.2 % 06/02/25 20: Neut # (Auto) 4.82 10^3/uL (1.8-7.7) 06/02/25 20: Lymph # (Auto) 0.6 10^3/uL (0.8-4.8) L 06/02/25 20: [place] # (Auto) 0.6 10^3/uL (0.2-0.9) 06/02/25 20:04 Eos # (Auto) 0.0 10^3/uL (0.0-0.8) 06/02/25 20:04 Baso # (Auto) 0.0 10^3/uL (0.0-0.1) 06/02/25 20:04 Nucleated RBC % (auto) 0 % 06/02/25 20:04 Nucleated RBCs # 0.0 /100WBC 06/02/25 20:04 Specimen Type Arterial 06/02/25 20:06 Sample Site Brachial, right 06/02/25 20:06 ABG pH 7.51 (7.35-7.45) H 06/02/25 20:06 ABG pCO2 43.0 mmHg (35-45) 06/02/25 20:06 ABG pO2 73.2 mmHg (80.0-100.0) L 06/02/25 20:06 ABG HCO3 34.3 mmol/L (22-26) H 06/02/25 20:06 ABG O2 Saturation 96.3 06/02/25 20:06 ABG Base Excess 10.2 mmol/L (-2.0-2.0) H 06/02/25 20:06 Hesham Test N/a 06/02/25 20:06 A-a O2 Gradient 3.0 mmHg (5-10) L 06/02/25 20:06 Hematocrit 31.1 % (42-52) L 06/02/25 20:06 Hgb O2 Saturation 94.4 % (95-100) L 06/02/25 20:06 Carboxyhemoglobin 1.9 %THgb (0.4-20.1) 06/02/25 20:06 Methemoglobin 0.1 % (0.4-1.5) L 06/02/25 20:06 Total Hemoglobin 10.2 g/dL (14-18) L 06/02/25 20:06 Sodium 139.0 mmol/L (131-143) 06/02/25 20:06 Potassium 2.9 mmol/L (3.5-5.0) L 06/02/25 20:06 Glucose 145.0 mg/dL (70-115) H 06/02/25 20:06 Ionized Calcium 1.1 mmol/L (1.1-1.4) 06/02/25 20:06 O2 Delivery Device Nc 06/02/25 20:06 O2 Liters/Min 3.0 % 06/02/25 20:06 Aurist ID [email or web address] 06/02/25 20:06 Sodium 139 mmol/L (136-145) 06/02/25 20:04 Potassium 3.0 mmol/L (3.5-5.1) L 06/02/25 20:04 Chloride 97 mmol/L (98-107) L 06/02/25 20:04 Carbon Dioxide 33 mmol/L (22-29) H 06/02/25 20:04 Anion Gap 12.0 (5-19) 06/02/25 20:04 BUN 14 mg/dL (8-23) 06/02/25 20:04 Creatinine 0.8 mg/dL (0.7-1.2) 06/02/25 20:04 GFR Calculation Not Reportable 06/02/25 20:04 Glucose 153 mg/dL (65-115) H 06/02/25 20:04 Calculated Osmolality 292 mOsm/kg (285-295) 06/02/25 20:04 Calcium 8.3 mg/dL (8.5-10.5) L 06/02/25 20:04 Total Bilirubin 1.0 mg/dL (0.15-1.2) 06/02/25 20:04 AST 21 U/L (0-40) 06/02/25 20:04 ALT 26 U/L (0-41) 06/02/25 20:04 Alkaline Phosphatase 109 U/L (40-130) 06/02/25 20:04 NT-Pro-B Natriuret Pep 9443 pg/mL (0-125) H 06/02/25 20:04 Total Protein 5.3 g/dL (6.6-8.7) L 06/02/25 20:04 Albumin 3.1 g/dL (3.5-5.2) L 06/02/25 20:04 Globulin 2.2 g/dL (1.3-4.6) 06/02/25 20:04 Procalcitonin 0.09 ng/mL (0-0.5) 06/02/25 20:04 Urine Color Yellow (Yellow) 06/02/25 21:34 Urine Appearance Clear (CLEAR) 06/02/25 21:34 Urine pH 5.5 (5-7) 06/02/25 21:34 Ur Specific Ferney 1.015 (1.005-1.030) 06/02/25 21:34 Urine Protein Trace (Negative) A 06/02/25 21:34 Urine Glucose (UA) Negative (Normal) 06/02/25 21:34 Urine Ketones Negative (Negative) 06/02/25 21:34 Urine Blood Negative (Negative) 06/02/25 21: Urine Nitrate Negative (Negative) 06/02/25 21:34 Urine Bilirubin Negative (Negative) 06/02/25 21:34 Urine Urobilinogen 1.0 mg/dL (Negative) 06/02/25 21: Ur Leukocyte Esterase Negative (Negative) 06/02/25 21:34 Urine RBC 0-2 /hpf (0-2) 06/02/25 21:34 Urine WBC 0-5 /hpf (0-5) 06/02/25 21:34 Ur Squamous Epith Cells 0-5 /hpf (0-5) 06/02/25 21:34 Amorphous Sediment Not Reportable 06/02/25 21:34 Urine Bacteria None seen /hpf (NONE) 06/02/25 21:34 Hyaline Casts 10.73 /lpf 06/02/25 21:34 All radiology interpretation(s) finalized by discharge Discharge Plan Discharge Patient Disposition: Home Clinical Impression: Acute on chronic systolic (congestive) heart failure Condition: Stable Prescriptions: New acetazolamide 250 mg tablet 250 mg PO DAILY Qty: 30 0RF potassium chloride 10 mEq capsule, extended release 20 meq PO BID Qty: 120 0RF No Action atorvastatin 40 mg tablet 40 mg PO DAILY Qty: 90 1RF citalopram 20 mg tablet 20 mg PO DAILY Qty: 90 1RF budesonide 0.5 mg/2 mL Suspension For Nebulization 0.5 mg inhalation BID.RESPIRATORY Qty: 60 0RF ipratropium bromide 0.02 % Solution 0.5 mg inhalation Q8H Qty: 150 0RF pantoprazole 40 mg Tablet,Delayed Release (Dr/Ec) 40 mg PO DAILY Qty: 30 0RF prednisone 10 mg tablet See Taper PO DIRECTED Qty: 42 0RF Taper: predniSONE 60-10 60 mg Daily for 2 Days and 0 Hour 50 mg Daily for 2 Days and 0 Hour 40 mg Daily for 2 Days and 0 Hour 30 mg Daily for 2 Days and 0 Hour 20 mg Daily for 2 Days and 0 Hour 10 mg Daily for 2 Days and 0 Hour Rx Instructions: see taper instructions furosemide [Lasix] 20 mg tablet 40 mg PO QAM PRN (Reason: weight gain) Qty: 20 0RF Rx Instructions: Rhythm at rebound digoxin 125 mcg (0.125 mg) Tablet 125 mcg PO DAILY@1200 Qty: 90 0RF midodrine 5 mg Tablet 15 mg PO TID Qty: 90 0RF aspirin 81 mg Tablet,Delayed Release (Dr/Ec) 81 mg PO DAILY fludrocortisone 0.1 mg Tablet 0.2 mg PO DAILY Qty: 60 0RF polyethylene glycol 3350 17 gram Powder In Packet 17 g PO DAILY Qty: 100 0RF potassium chloride 10 mEq capsule, extended release 20 meq PO DAILY Qty: 30 0RF amiodarone [Pacerone] 200 mg Tablet 200 mg PO BID Qty: 90 0RF ferrous sulfate [FeroSul] 325 mg (65 mg iron) tablet 325 mg PO DAILY tamsulosin 0.4 mg capsule 0.4 mg PO DAILY Discharge Orders: Discharge ED (Routine); Ordered 06/02/25 Ordered By: Kisha Newell Discharge Diet: As Directed and Low Salt Discharge Activity: Resume usual activity and Increase activity as tolerated Patient Instructions: Heart Failure (ED), High Protein / High Calorie Diet (ED), Patient Portal & Krystin Instructions Activity Restrictions/Additional Instructions: - At the pharmacy: Acetazolamide/Diamox. Take 1 p.o. daily. - At the pharmacy: Potassium chloride. Take 2 of the 20 mill equivalents twice daily. - We discussed your diet: Low-salt, high-protein. I have given you information on high-protein diet and heart failure diet - You will need your labs rechecked in a week regarding your new diuretic. The new diuretic listed above, is very powerful with what you have going on. Make sure you are following your weights with your heart failure as you normally do - Wear your 3 L of oxygen - Do not forget you need to offload your buttocks to avoid sores. You have to turn from [id number], and prop with pillows, and move - We also discussed: Compression socks. It might be most beneficial to learn how to do these so you can put them on every morning for when you get ready to be more independent again - Please come back to the ED to be reevaluated if you do have increasing confusion again, increasing shortness of breath. Thank you for choosing [facility] for your healthcare needs today. You have been screened and evaluated and felt safe for discharge. Health conditions do change or evolve sometimes and as such it is important that you follow up with your Primary Doctor to be re checked, 3-5 days is a general good time frame for follow up. You are always welcome to return to the ED for re assessment if your symptoms are worsening or you have new concerns Print Language: Armenian Coding Level of Care Code ED Damper Maker for [employer] [employer]
[2025-06-02] MEDS: methylPREDNISolone sod succ 125 mg/2 mL INJ 80 MG IVP (19:54)
[2025-06-02 20:17] LABS: ABG PCO2 43.0 mmHg (35-45); ABG PH Result 7.51 (7.35-7.45); Alveolar-Arterial Oxygen Gradi 3.0 mmHg (5-10); Arterial Blood Gas Hematocrit 31.1 % (42-52); Blood Gas LPM 3.0 %; Blood Gas Sample Site Brachial, right; Blood Gas Sample Type Arterial; Carboxyhemoglobin 1.9 %THgb (0.4-20.1); Glucose Level-ABG 145.0 mg/dL (70-115); HCO3 ABG 34.3 mmol/L (22-26); Ionized Calcium Level - ABG 1.1 mmol/L (1.1-1.4); Methemoglobin 0.1 % (0.4-1.5); Oxygen Saturation ABG 96.3; PO2 ABG 73.2 mmHg (80.0-100.0); Potassium Level - ABG 2.9 mmol/L (3.5-5.0); Sodium Level - ABG 139.0 mmol/L (131-143)
[2025-06-02 20:19] LABS: Hematocrit 31.1 % (37-53); Hemoglobin 9.70 g/dL (11.27-16.99); Mean Corpuscular HGB Conc 31.2 g/dL (30-55); Mean Corpuscular Hemoglobin 30.1 pg (27-33); Mean Corpuscular Volume 96.6 fl (82-101); Nucleated Red Blood Cells % 0 %; Platelet Count 139 10^3/cmm (157-399); Red Blood Count 3.22 10^6/uL (3.85-5.65); White Blood Count 6.00 10^3/uL (3.29-11.43)
[2025-06-02 20:53] LABS: Alanine Aminotransferase 26 U/L (0-41); Albumin Level 3.1 g/dL (3.5-5.2); Alkaline Phosphatase 109 U/L (40-130); Anion Gap 12.0 (5-19); Aspartate Amino Transferase 21 U/L (0-40); Blood Urea Nitrogen 14 mg/dL (8-23); Calcium 8.3 mg/dL (8.5-10.5); Carbon Dioxide 33 mmol/L (22-29); Chloride 97 mmol/L (98-107); Globulin 2.2 g/dL (1.3-4.6); Glucose 153 mg/dL (65-115); NT Pro B Type Natriuretic Pept 9443 pg/mL (0-125); Osmolality Calculated 292 mOsm/kg (285-295); Potassium 3.0 mmol/L (3.5-5.1); Slide Review Slide Review Perform; Sodium 139 mmol/L (136-145); Total Protein 5.3 g/dL (6.6-8.7)
--- OUTSIDE RECORDS SUMMARY | 2025-06-02 20:58 | XMS_ITS ---
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 Name Role Phone Allyssa Wheelern Unavailable Unavailable Alexis Machado Unavailable Unavailable Allergies and adverse reactions Code CodeSystem Substance Reaction Severity StartDate Concern Status Adhesive Unknown 05/15/2025 active Care Team Name Role Address Phone Organization Dates Alexis Machado PCP [address] [place], [address], [facility] (Office): [facility] 05/15/2025 - present Mable Liam [address], [address], [facility] (Office): : [facility] 05/15/2025 - present Encounters Encounter Type Code Code System Description Performer Discharge Disposition Service Delivery Location Date Ambulatory Encounter CPT Code = [id number] Acute on chronic hypoxemic respiratory failure [facility] Address: [address] [place] [address], [id number] [place] [address]. 05/15 Ambulatory Encounter CPT Code = [id number] Pneumonia [facility] Address: [address] [place] [address], [id number] [place] [address]. 05/15 Ambulatory Encounter CPT Code = [id number] Shock [facility] Address: [address] 05/15 Ambulatory Encounter CPT Code = [id number] Chronic obstructive pulmonary disease [facility] Address: [address] [place] [address]. 05/15 Ambulatory Encounter CPT Code = [id number] Acute on chronic combined systolic and diastolic heart failure [facility] Address: [address] [place] [address]. 05/15 Ambulatory Encounter CPT Code = [id number] Implantation of automatic cardiac defibrillator [facility] Address: [address] [place] [address]. 05/15 Ambulatory Encounter CPT Code = [id number] Paroxysmal atrial fibrillation [facility] Address: [address] [place] [address]. 05/15 Ambulatory Encounter CPT Code = [address] Bilateral hearing loss [facility] Address: [address] [place] [address]. 05/15 Ambulatory Encounter CPT Code = [id number] Constipation [facility] Address: [address] [place] [address]. 05/15 Ambulatory Encounter CPT Code = [id number] Iron deficiency anemia [facility] Address: [address] [place] [address]. 05/15 Ambulatory Encounter CPT Code = [id number] Essential hypertension [facility] Address: [address] [place] [address]. 05/15 Ambulatory Encounter CPT Code = [id number] Cardiac arrhythmia [facility] Address: [address] [place] [address]. 05/15 Ambulatory Encounter CPT Code = [id number] Hyperlipidemia [facility] Address: [address] [place] [address]. 05/15 Ambulatory Encounter CPT Code = [id number] Benign prostatic hyperplasia [facility] Address: [address] [place] [address]. 05/15 Ambulatory Encounter CPT Code = [id number] Localized edema [facility] Address: [address] [place] [address]. 05/15 Ambulatory Encounter CPT Code = [id number] Gastroesophageal reflux disease without esophagitis [facility] Address: [address] [place] [address]. 05/15 Ambulatory Encounter CPT Code = [address] Old myocardial infarction [facility] Address: [address] [place] [address]. 05/15 Ambulatory Encounter CPT Code = 61386 [id number] Atherosclerosis of coronary artery without angina pectoris [facility] Address: [address] [place] [address]. 05/15 Ambulatory Encounter CPT Code = [id number] Aortic valve stenosis [facility] Address: [address] [place] [address]. 05/15 Ambulatory Encounter CPT Code = [id number] Low blood pressure [facility] Address: [address] [place] [address]. 05/15 Ambulatory Encounter CPT Code = [id number] Major depression, single episode [facility] Address: [address] [place] [address]. 05/15 Goals Section Goals Description Status Target Date Morgan will be free from co mplications of cardiac problems through the review date. Active 08/23/2025 Morgan will be free from s/ sx of complications of cardiac problems through the review date. Active 08/23/2025 Morgan will improve current level of function in ambulation through the review date. Resident will be able to: ambulate 150 feet with 2WW and supervision. Active 08/23/2025 Morgan will remain free fro m s/sx of pacemaker malfunction or failure through the review date Active 08/23/2025 Morgan will remain free of complications related to hypertension through review date. Active 08/23/2025 Morgan will remain free of complications related to hypotension through review date. Active 08/23/2025 Morgan will verbalize less difficulty breathing (Dyspnea) and be more comfortable through the review date. Active 08/23/2025 Resident will not have adver se effects r/t usage of medications with Black Box Warnings. Active 08/23/2025 Resident will remain free fr om s/s Covid-19 virus through review date Active 08/23/2025 The resident will be able to make basic needs known by verbalization on a daily basis through the review date. Active 08/23/2025 The resident will be free fr om discomfort or adverse reactions related to antidepressant therapy through the review date. Active 08/23/2025 The resident will be free of any discomfort or adverse side effects of diuretic therapy through the review date. Active 0 08/23/2025 The resident will be free of infection, pain or bleeding in the oral cavity by review date. Active 08/23/2025 The resident will be free of s/sx of respiratory infections through review date. Active 08/23/2025 The resident will be free of symptoms of dehydration and maintain moist mucous membranes, good skin turgor. Active 08/23/2025 The resident will have intac t skin, free of redness, blisters or discoloration by/through review date. Active 08/23/2025 The resident will have no s/ sx of poor oxygen absorption through the review date. Active 08/23/2025 The resident will not develo p complications related to obesity, including skin breakdown, ineffective breathing pattern, altered cardiac output, diabetes, impaired mobility through review date. Active 08/23/2025 The resident will not sustai n serious injury through the review date. Active 08/23/2025 The resident's discharge goa ls are: to Discharge home at [facility] was independent of all ADL and ambulation without assistive device Active 08/23/2025 The resident's pneumonia abad l be resolved without complications by review date. Active 08/23/2025 Functional Status Code Name Recorded Time Value Entered By Ambulation 06/02/2025 Supervision tinaessary Ambulation 06/02/2025 Supervision tinaessary Ambulation 06/02/2025 Not assessed tinaessary Ambulation 06/02/2025 Not assessed tinaessary Bathing 05/27/2025 Not assessed - Dressing 06/02/2025 Supervision tinaessary Feeding or Eating 06/02/2025 Supervision alexusgree n Toileting 06/02/2025 Supervision tinaessary Transferring 06/02/2025 Supervision tinaessary Immunizations Immunization Status Vaccine Details Vaccine Code CodeSystem Date Notes TB 2 Step Mantoux Skin Test completed tuberculin skin test; unspecified formulation lotNumber: [id number] expiry: 11/22/2026 Mfg: PAR Pharmacautical Given 0.1 Right Forearm intradermally Step 1 of Multi-step with next step required 98 CVX created date: 05/24/2025 consent date: 05/24/2025 administer ed date: 05/24/2025 TB 2 Step Mantoux Skin Test completed tuberculin skin test; unspecified formulation lotNumber: [id number] expiry: 12/21/2026 Mfg: [employer] Given 0.1 ml Left Forearm intradermally Step 1 of Multi-step with next step required 98 CVX created date: 05/16/2025 consent date: 05/15/2025 administer ed date: 05/16/2025 Educated by on 05/22/2025 TB 2 Step Mantoux Skin Test new tuberculin skin test; unspecified formulation 98 CVX created date: 05/22/2025 consent date: 05/15/2025 Prevnar 20 completed Pneumococcal conjugate vaccine 20-valent (PCV20), polysaccharide [id number] conjugate, adjuvant, preservative free 216 CVX created date: 05/21/2025 administer ed date: 03/24/2025 Influenza, seasonal, injectable completed Influenza, split virus, trivalent, injectable, contains preservative 141 CVX created date: 05/21/2025 administer ed date: 03/24/2025 Medications Section Medication Name Status Code CodeSystem Dose Route Frequency Admin Type Sig Text Start Date End Date Indication Amiodarone HCl Oral Tablet 200 MG active 67515 8 RXNORM 1 table t Oral two times a day Routin e Give 1 table t by mouth two times a day for A-Fib 2024 - A-Fib Digoxin Oral Tablet 125 MCG aborted 4 RXNORM 1 table t Oral one time a day Routin e Give 1 table t by mouth one time a day Hold if pulse is less than 60. 05/25 - Aspirin EC Tablet Delayed Release 81 MG active 56705 6 RXNORM 1 table t Oral one time a day Routin e Give 1 table t by mouth one time a day for Cardi ac Arrhy thmia 2024 - Cardiac Arrhythmia Potassium Chloride ER Tablet Extended Release 20 MEQ aborted 6 RXNORM 1 table t Oral one time a day Routin e Give 1 table t by mouth one time a day for Suppl ement 05/30 Supplement Citalopram Hydrobromid e Oral Tablet 20 MG active 1 RXNORM 1 table t Oral one time a day Routin e Give 1 table t by mouth one time a day 2024 - - Ferrous Sulfate Oral Tablet 325 (65 Fe) MG aborted 11091 5 RXNORM 1 table t Oral STAT STAT Give 1 table t by mouth STAT 05/16 - GlycoLax Powder active 36459 3 RXNORM 1 scoop Oral one time a day Routin e Give 1 scoop by mouth one time a day for const ipati on 8 oz Liqui d. 2024 - constipatio n Furosemide Oral Tablet 20 MG aborted 51680 9 RXNORM 1 table t Oral one time a day Routin e Give 1 table t by mouth one time a day for weigh t gain 05/20 weight gain Ferrous Sulfate Oral Tablet 325 (65 Fe) MG active 15513 5 RXNORM 1 table t Oral one time a day Routin e Give 1 table t by mouth one time a day 2024 - - Fludrocorti sone Acetate Tablet 0.1 MG active 37472 9 RXNORM 2 table t Oral one time a day Routin e Give 2 table t by mouth one time a day for Hypot ensio n 2024 - Hypotension Atorvastati n Calcium Oral Tablet 40 MG active 15874 1 RXNORM 1 table t Oral at bedtime Routin e Give 1 table t by mouth at bedti tn 2024 - - Budesonide Inhalation Suspension 0.5 MG/2ML active 92847 9 RXNORM 1 vial Inhala tion two times a day Routin e 1 vial inhal e orall y two times a day for COPD 2024 - COPD Fludrocorti sone Acetate Tablet 0.1 MG aborted 94757 9 RXNORM 1 table t Oral one time a day Routin e Give 1 table t by mouth one time a day for Hypot ensio n 05/16 Hypotension Midodrine HCl Oral Tablet 5 MG aborted 94273 0 RXNORM 3 table t Oral one time a day Routin e Give 3 table t by mouth one time a day for Hypot ensio n 05/16 Hypotension predniSONE Oral Tablet 10 MG aborted 5 RXNORM 3 table t Oral one time a day Routin e Give 3 table t by mouth one time a day for COPD for 2 Days 05/16 COPD Tamsulosin HCl Capsule 0.4 MG active 38269 9 RXNORM 1 capsu le Oral at bedtime Routin e Give 1 capsu le by mouth at bedti me for benchandler n prost atic hyper plasi a 2024 - benign prostatic hyperplasia Pantoprazol e Sodium Oral Tablet Delayed Release 40 MG active 16520 0 RXNORM 1 table t Oral one time a day Routin e Give 1 table t by mouth one time a day for GERD 2024 - GERD Ipratropium Gray Inhalation Solution 0.02 % active 38803 8 RXNORM 1 vial Inhala tion every 8 hours Routin e 1 vial inhal e orall y every 8 hours for COPD 2024 - COPD predniSONE Oral Tablet 10 MG aborted 5 RXNORM 5 table t Oral one time a day Routin e Give 5 table t by mouth one time a day 05/16 - predniSONE Oral Tablet 10 MG complet ed 5 RXNORM 6 table t Oral one time a day Routin e Give 6 table t by mouth one time a day for COPD for 2 Days 05/18 COPD predniSONE Oral Tablet [place] [address] 5 RXNORM 5 table t Oral one time a day Routin e Give 5 table t by mouth one time a day for CopD for 2 Days 05/20 CopD predniSONE Oral Tablet 10 MG aborted 5 RXNORM 4 table t Oral one time a day Routin e Give 4 table t by mouth one time a day for COPD for 2 Days 05/16 COPD Midodrine HCl Oral Tablet active 15 mg Oral three times a day Routin e Give 15 mg by mouth three times a day 2024 - - predniSONE Oral Tablet 10 MG complet ed 5 RXNORM 3 table t Oral one time a day Routin e Give 3 table t by mouth one time a day for COPD for 2 Days 05/24 COPD predniSONE Oral Tablet [place] [address] 5 RXNORM 1 table t Oral one time a day Routin e Give 1 table t by mouth one time a day for COPD for 2 Days 05/28 COPD predniSONE Oral Tablet [place] [address] 5 RXNORM 2 table t Oral one time a day Routin e Give 2 table t by mouth one time a day for COPD for 2 Days 05/26 COPD predniSONE Oral Tablet [place] [address] 5 RXNORM 4 table t Oral one time a day Routin e Give 4 table t by mouth one time a day for COPD for 2 Days 05/22 COPD Tuberculin PPD Solution 5 UNIT/0.1[place] [address] 2 RXNORM 0.1 ml Intrad ermal every day shift Routin e Injec t 0.1 ml intra derma lly every day shift every Sat for TB (Tube rculo sis) [place]ree [place] for 1 Admin istra tions 05/29 TB (Tuberculos is) Screening Furosemide Oral Tablet 20 MG aborted 19973 9 RXNORM 2 table t Oral one time a day Routin e Give 2 table t by mouth one time a day for weigh t gain 05/30 weight gain Tuberculin PPD Solution 5 UNIT/0.1ML [facility] [address]24 2 RXNORM 0.1 ml Intrad ermal one time a day Routin e Injec t 0.1 ml intra derma lly one time a day for TB (Tube rculo sis) [place] for 1 Admin istra tions 05/25 TB (Tuberculos is) Screening Digoxin Oral Tablet 125 MCG active 4 RXNORM 1 table t Oral one time a day Routin e Give 1 table t by mouth one time a day for a-fib Hold if pulse is less than 60. 2024 - a-fib Lasix Oral Tablet 40 MG aborted 9 RXNORM 1 table t Oral one time a day Routin e Give 1 table t by mouth one time a day for 3 Days 05/30 - Lasix Oral Tablet active 60 mg Oral two times a day Routin e Give 60 mg by mouth two times a day 2024 - - Potassium Chloride ER Tablet Extended Release 20 MEQ active 6 RXNORM 1 table t Oral two times a day Routin e Give 1 table t by mouth two times a day for Suppl ement 2024 - Supplement Mental Status Section Date Assessment Total Score Description 05/20/2025 BIMS 15 cognitively int act CAM 0 No delirium ind icated PHQ-9 00 05/20/2025 BIMS 15 cognitively int act CAM 0 No delirium ind icated PHQ-9 00 Insurance Providers Coverage Status Coverage Type Relationship to Subscriber Member Identifier Subscriber Identifier Group Identifier Payer Identifier and Other information 2025 Code: 51 Code System OID:[id number] 1.5 Code System Name: Source of Payment Typology (PHDSC) Display: Managed Care (Private) Translation: Code: HM Code System: OID:[id number]. 1.525291.6.25 Code System Name: Insurance Type Code ([id number]) Display Name: Health Maintenance Organization (HMO) Plan Code: SELF Code System Name: HL7 RoleCode Code System OID:[id number]. [id number] 1 Display Name: Self [id number] Root: [id number] Payer Name: [employer] Address: [address] [address] City: [place] State: [place] Country: [place] [facility] Telecom: [phone] Code: 81 Code System OID:[id number]. [id number] 1.5 Code System Name: Source of Payment Typology (PHDSC) Display: Self Pay Translation: Code: 09 Code System: OID:[id number]. [id number] 5.1336 Code System Name: Insurance Type Code ([id number]) Display Name: Self-pay Plan of Treatment Section Interventions Intervention Code Code System Display Name Proposed D ate Problems Problem # Description Date of onset Resolved Date Code CodeSystem Concern Status 1 BENIGN PROSTATIC HYPERPLASIA WITHOUT LOWER URINARY TRACT SYMPTOMS 06/02/[address] active 2 LOCALIZED EDEMA 05/27/[address] active 3 ACUTE AND CHRONIC RESPIRATORY FAILURE WITH HYPOXIA 05/16/[address] active 4 ACUTE ON CHRONIC COMBINED SYSTOLIC (CONGESTIVE) AND DIASTOLIC (CONGESTIVE) HEART FAILURE 05/16/[address] active 5 ATHEROSCLEROTIC HEART DISEASE OF [place] CORONARY ARTERY WITHOUT ANGINA PECTORIS 05/16/[address] active 6 CARDIAC ARRHYTHMIA, UNSPECIFIED 05/16/[address] active 7 CHRONIC OBSTRUCTIVE PULMONARY DISEASE, UNSPECIFIED 05/16/[address] active 8 CONSTIPATION, UNSPECIFIED 05/16/[address] active 9 ESSENTIAL (PRIMARY) HYPERTENSION 05/16/[address] active 10 GASTRO-ESOPHAGEAL REFLUX DISEASE WITHOUT ESOPHAGITIS 05/16/[address] active 11 HYPERLIPIDEMIA, UNSPECIFIED 05/16/[address] active 12 HYPOTENSION, UNSPECIFIED 05/16/[address] active 13 IRON DEFICIENCY ANEMIA, UNSPECIFIED 05/16/[address] active 14 MAJOR DEPRESSIVE DISORDER, SINGLE EPISODE, UNSPECIFIED 05/16/[address] active 15 NONRHEUMATIC AORTIC (VALVE) STENOSIS 05/16/[address] active 16 OLD MYOCARDIAL INFARCTION 05/16/[address] active 17 PAROXYSMAL ATRIAL FIBRILLATION 05/16/[address] active 18 PNEUMONIA, UNSPECIFIED ORGANISM 05/16/[address] active 19 PRESENCE OF AUTOMATIC (IMPLANTABLE) CARDIAC DEFIBRILLATOR 05/16/[address] active 20 SHOCK, UNSPECIFIED 05/16/[address] active 21 UNSPECIFIED HEARING LOSS, BILATERAL 05/16/[address] active Reason for Referral No Reasons for Referral Entered Diagnostic Results Laboratory Test Results Code Code System Date Test Observation Result Interpretation Reference Range Status Notes 777-3 LOINC 05/19 Complet e Blood Count Complete d Result for: morgan Dahl ( [birth year] 55, M) 785-6 LOINC 05/18 MCH Value: 30.1 Units: pg Normal 25.7-32.2 Final 706-2 LOINC 05/18 BASO% Value: 0.1 Units: % Low 0.2-1.2 Final 713-8 LOINC 05/18 EOS% Value: 0.0 Units: % Low 0.8-7.0 Final 5905- 5 LOINC 05/18 MONO% Value: 5.0 Units: % Low 5.3-12.2 Final 75192 -0 LOINC 05/18 LYMPH% Value: 1.8 Units: % Low 21.8-53.1 Final 770-8 LOINC 05/18 NEUT% Value: 92.6 Units: % High 34.0-67.9 Final 788-0 LOINC 05/18 RDW Value: 17.9 Units: % High 11.6-14.4 Final 4544- 3 LOINC 05/18 HCT Value: 31.2 Units: % Low 40.1-51.0 Final 789-8 LOINC 05/18 RBC Value: 3.32 Units: 10*6/uL Low 4.63-6.08 Final 785-6 LOINC 05/18 MCHC Value: 32.1 Units: g/dL Low 32.3-36.5 Final 718-7 LOINC 05/18 HGB Value: 10.0 Units: g/dL Low 13.7-17.5 Final 787-2 INC 05/18 MCV Value: 94.0 Units: fL High 79.0-92.2 Final 777-3 INC 05/18 MPV Value: ---- Units: fL Normal 9.4-12.4 Final 123-9 9999- 9 INC 05/19 Complet e Blood Count / Cogent- Complete d Result for: morgan Dahl ( [birth year] 55, M) 123-9 9999- 9 INC 05/18 Cogent- - Normal Final 751-8 [facility] 05/19 Complet e Blood Count Complete d Result for: morgan Dahl ( [birth year] 55, M) 777-3 [facility] 05/18 PLT Value: 101 Units: x10^3/u L Low 163-337 Final 6690- 2 INC 05/18 WBC Value: 14.77 Units: x10^3/u L High 4.23-9.07 Final 704-7 INC 05/18 BASO# Value: 0.02 Units: x10^3/u L Normal 0.01-0.08 Final 711-2 INC 05/18 EOS# Value: 0.00 Units: x10^3/u L Low 0.04-0.54 Final 742-7 INC 05/18 MONO# Value: 0.74 Units: x10^3/u L Normal 0.30-0.82 Final 736-9 INC 05/18 LYMPH# Value: 0.26 Units: x10^3/u L Low 1.32-3.57 Final 751-8 INC 05/18 NEUT# Value: 13.68 Units: x10^3/u L High 1.78-5.38 Final 1759- 0 LOINC 05/28 CMP Complete d Result for: morgan Dahl ( [birth year] 55, M) 1759- 0 LOINC 05/27 A/G RATIO Value: 2.2 Units: {ratio} High 0.8-2.0 Final 98728 -8 LOINC 05/28 Complet e Blood Count / CMP / DIGOXIN - IN HOUSE / Lipid Panel / TSH / Cogent- Complete d Result for: morgan Dahl ( [birth year] 55, M) 14645 -8 LOINC 05/27 THYROID-STIMUL ATING HORMONE (TSH) Value: 6.36 Units: u[IU]/m L High 0.45-5.33 Final 736-9 LOINC 05/28 Complet e Blood Count Complete d Result for: morgan Dahl ( [birth year] 55, M) 704-7 LOINC 05/27 BASO# Value: 0.02 Units: x10^3/u L Normal 0.01-0.08 Final 711-2 LOINC 05/27 EOS# Value: 0.10 Units: x10^3/u L Normal 0.04-0.54 Final 742-7 LOINC 05/27 MONO# Value: 0.61 Units: x10^3/u L Normal 0.30-0.82 Final 736-9 LOINC 05/27 LYMPH# Value: 0.50 Units: x10^3/u L Low 1.32-3.57 Final 123-9 9999- 9 LOINC 05/28 Complet e Blood Count / CMP / DIGOXIN - IN HOUSE / Lipid Panel / TSH / Cogent- Complete d Result for: morgan Dahl ( [birth year] 55, M) 123-9 9999- 9 LOINC 05/27 Cogent- - Normal Final 3097- 3 LOINC 05/28 CMP Complete d Result for: morgan Dahl ( [birth year] 55, M) 3097- 3 LOINC 05/27 BUN/CREAT RATIO Value: 33.8 Units: {calc} High 10-20 Final 4544- 3 LOINC 05/28 Complet e Blood Count Complete d Result for: morgan Dahl ( [birth year] 55, M) 787-2 LOINC 05/27 MCV Value: 98.6 Units: fL High 79.0-92.2 Final 777-3 [facility] 05/27 MPV Value: ---- Units: fL Normal 9.4-12.4 Final 718-7 INC 05/27 HGB Value: 10.6 Units: g/dL Low 13.7-17.5 Final 785-6 [facility] 05/27 MCHC Value: 30.9 Units: g/dL Low 32.3-36.5 Final 777-3 [facility] 05/27 PLT Value: 120 Units: x10^3/u L Low 163-337 Final 6690- 2 [facility] 05/27 WBC Value: 8.47 Units: x10^3/u L Normal 4.23-9.07 Final 751-8 [facility] 05/27 NEUT# Value: 7.19 Units: x10^3/u L High 1.78-5.38 Final 789-8 [facility] 05/27 RBC Value: 3.48 Units: 10*6/uL Low 4.63-6.08 Final 706-2 [facility] 05/27 BASO% Value: 0.2 Units: % Normal 0.2-1.2 Final 713-8 [facility] 05/27 EOS% Value: 1.2 Units: % Normal 0.8-7.0 Final 5905- 5 [facility] 05/27 MONO% Value: 7.2 Units: % Normal 5.3-12.2 Final 38149 -0 [facility] 05/27 LYMPH% Value: 5.9 Units: % Low 21.8-53.1 Final 770-8 [facility] 05/27 NEUT% Value: 84.9 Units: % High 34.0-67.9 Final 788-0 [facility] 05/27 RDW Value: 19.6 Units: % High 11.6-14.4 Final 4544- 3 [facility] 05/27 HCT Value: 34.3 Units: % Low 40.1-51.0 Final 2345- 7 [facility] 05/28 CMP Complete d Result for: morgan Dahl ( [birth year] 55, M) 84446 -0 [facility] 05/27 GLOBULIN, Calculated Value: 1.5 Units: g/dL Low 1.9-3.7 Final 2885- 2 [facility] 05/27 TOTAL PROTEIN Value: 4.8 Units: g/dL Low 6.4-8.9 Final 1751- 7 [facility] 05/27 ALBUMIN Value: 3.3 Units: g/dL Low 3.5-5.7 Final 1920- 8 [facility] 05/27 ASPARTATE AMINOTRANSFERA SE (AST) Value: 12 Units: [IU]/L Low 13-39 Final 1742- 6 [facility] 05/27 ALANINE AMINOTRANSFERA SE (ALT) Value: 19 Units: [IU]/L Normal 7-52 Final 6768- 6 [facility] 05/27 ALKALINE PHOSPHATASE (ALP) Value: 91 Units: [IU]/L Normal 34-104 Final 37209 -3 [facility] 05/27 ANION GAP Value: 12.3 Units: mEq/L Normal 8-16 Final 2027- 9 [facility] 05/27 CARBON DIOXIDE (BICARB) Value: 33 Units: mEq/L High 21-31 Final 2075- 0 [facility] 05/27 CHLORIDE Value: 98 Units: mEq/L Normal 98-107 Final 2823- 3 [facility] 05/27 POTASSIUM Value: 4.3 Units: mEq/L Normal 3.5-5.1 Final 2951- 2 [facility] 05/27 SODIUM Value: 139 Units: mEq/L Normal 136-145 Final 2160- 0 [facility] 05/27 CREATININE Value: 0.66 Units: mg/dL Normal 0.6-1.3 Final 3094- 0 [facility] 05/27 BLOOD UREA NITROGEN (BUN) Value: 22.3 Units: mg/dL Normal 7.0-25.0 Final 1974- [facility] 05/27 TOTAL BILIRUBIN Value: 1.2 Units: mg/dL High 0.3-1.0 Final 37753 -1 [facility] 05/27 CALCIUM Value: 8.3 Units: mg/dL Low 8.6-10.2 Final 2345- 7 [facility] 05/27 GLUCOSE Value: 185 Units: mg/dL High 74-109 Final LOINC 05/28 Lipid Panel Complete d Result for: morgan Dahl ( [birth year] 55, M) 95535 -7 LOINC 05/27 LDL (CALCULATED) Value: 52 Units: mg/dL Normal <100 mg/dL Final *LDL Calcula tion is invalid if Triglyc eride level is >400 mg/dL.* The NCEP guideli iliana classif y LDL - Cholest ale levels as follows :1. < 100 mg/dL Optimal 2. 100 129 mg/dL Near optimal /above optimal 3. 131 159 mg/dL Borderl ine high4. 160 189 mg/dL High5. => 190 mg/dL Very High 257- 8 LOINC 05/27 TRIGLYCERIDES Value: 50 Units: mg/dL Normal <150 mg/dL Final Triglyc eride Risk Classif ication <150 mg/dL Normal 150-199 mg/dL Borderl ine High 200-499 mg/dL High =>500 mg/dL Very High LOINC 05/27 HDL Value: 49 Units: mg/dL Normal >40 mg/dL Final In 2000, The Nationa l Cholest ale Educati on Program (NCEP) increas ed the [facility] n point to <40 mg/dL.T he guideli iliana classif y HDL- C levels as follows :1. < 40 mg/dL as indicat devaughn of a major risk factor for CHD.2. > 60 mg/dL as a negativ e risk factor for CHD. LOINC 05/27 CHOLESTEROL, TOTAL Value: 111.2 Units: mg/dL Normal <200 mg/dL Final Total Cholest ale Risk Classif ication < 200 mg/dL Desirab le 200 - 239 mg/dL Borderl ine High > 240 mg/dL High 77154 -3 LOINC 05/28 CMP Complete d Result for: morgan Dahl ( [birth year] 55, M) 94164 -1 LOINC 05/27 Estimated GFR AA Value: >60.0 Units: mL/min/ {1.73_m 2} Normal >60.0 Final 76460 -3 LOINC 05/27 Estimated GFR Value: >60.0 Units: mL/min/ {1.73_m 2} Normal >60.0 Final 90485 -3 LOINC 05/28 Complet e Blood Count / CMP / DIGOXIN - IN HOUSE / Lipid Panel / TSH / Cogent- Complete d Result for: morgan Dahl ( [birth year] 55, M) 22260 -3 LOINC 05/27 DIGOXIN Value: 1.1 Units: ng/mL Normal 0.8-2.0 Final 785-6 LOINC 05/28 Complet e Blood Count Complete d Result for: morgan Dahl ( [birth year] 55, M) 785-6 LOINC 05/27 MCH Value: 30.5 Units: pg Normal 25.7-32.2 Final 72619 -4 LOINC 05/29 B-type Natriur etic Peptide (BNP) SEND OUT / MICROAL BUMIN / Cogent- Complete d Result for: morgan Dahl ( [birth year] 55, M) 123-9 9999- 9 LOINC 05/28 Cogent- - Normal Final 32275 -5 LOINC 05/28 MICROALBUMIN, RANDOM URINE - Normal - Final Test perform ed at [facility]. 123-9 9999- 9 LOINC 05/28 Cogent- - Normal Final 32612 -5 LOINC 05/28 MICROALBUMIN, RANDOM URINE - Normal - Final Test [facility] 65388 -4 LOINC 05/28 B-type Natriuretic Peptide (BNP) Value: . Units: pg/mL Normal 0-100 Final BNP results <=100 pg/mL are represe ntative of normal values in patient s without CHF.BNP results > 100 pg/mL are conside red abnorma l and suggest devaughn of patient s with CHF. 04672 -4 LOINC 05/28 B-type Natriuretic Peptide (BNP) Value: . Units: pg/mL Normal 0-100 Final BNP results <=100 pg/mL are represe ntative of normal values in patient s without CHF.BNP results > 100 pg/mL are conside red abnorma l and suggest devaughn of patient s with CHF. Social History Social History Observation Description Start Date End Date Code Code System Current Smoking Status Tobacco smoking consumption unknown 528854559 SNOMED CT Sex Assigned At Male 1950 62420-6 LOINC Gender Identity Sexual Orientation Vital Signs Code Code System Vitals Name Values and Units Timing Information 9279-1 LOINC Respiratory Rate Value=19.0 Units=/m in 06/02/2025 8462-4 LOINC Blood Pressure-Diastolic Value=62 Un its=mmHg 06/02/2025 8480-6 LOINC Blood Pressure-Systolic Ruuye=712 Un its=mmHg 06/02/2025 8310-5 LOINC Body Temperature Value=98.4 Units= F 06/02/2025 8867-4 LOINC Heart rate Value=74.0 Units=/min 03/2025 91816-7 LOINC O2 % BldC Oximetry Value=94.0 Units= % 06/02/2025 93215-2 LOINC Pain Level Value=0.0 06/02/2025 86898-7 LOINC Weight Xfinp=832.0 Units=Lbs 03/2025 8302-2 LOINC Height Value=69.0 Units=Inches 05/16/2025
--- OUTSIDE RECORDS SUMMARY | 2025-06-02 20:58 | XMS_ITS | Clinical Summary ---
Author Organization [facility] Administrative Offices Address [address] [place] [address] Care Team Providers Care Congressional Aide Name Role Phone Unavailable Primary Care Provider Unavailabl e Allergies Active Allergy Reactions Criticality Noted Date Comments Adhesive Other (See Comments) Low 03/19/2023 Tegaderm caused bleeding Medications aspirin (ECOTRIN EC) 81 mg Tablet, Delayed Release (E.C.) Take 1 Tablet (81 mg) by mouth daily. 90 Tablet 3 Active spironolactone (ALDACTONE) 25 mg tablet Take [...] other day. 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, bi legs 02/04/2023 Tobacco use 11/14/2022 Resolved Problems Problem Noted Date Diagnosed Date Resolved Date Acute respiratory insufficie ncy, postoperative 08/04/2024 08/11/2024 Acute coronary syndrome 07/24/202401/22 Abnormal stress test 07/24/2024 025 Encounters Date Type Department Care Team Description 05/25/2025 External Device Data STL ABSTRACTION Provider, Abstract 05/04/2025 Telephone [place] [address] [address] [facility] [address] [place] [phone] Juarez Clements MD Medical Records 04/16/[address] [phone] Kiya York, OPERATIONS GENERAL AGENT 03/30/2025 External Device Data STL ABSTRACTION Provider, Abstract 03/10/2025 1:30 PM CDT Nurse Only [place] [address] [address] [facility] [address] [place] [phone] Juarez Clements MD Sick sinus syndrome (CMS/HCC) (Primary Dx); Atrial fibrillation, unspecified type (CMS/HCC); Ischemic dilated cardiomyopathy (CMS/HCC); Automatic implantable cardioverter-defibril lator in situ 03/08/[address] [phone] Willie Byrne MD Needs Appointment 03/05/2025 10:15 AM CDT Office Visit 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 Gender Identity Not on file Sexual Orientation [...] 2025 04/06/2024 Medical Devices Implanted Type Area Executive Chef Assistant Device Identifier Shelf Expiration Date Model / Serial / Lot Atriclip Flex-V Claudia Exclusion 45mm Achv45 - [id number] Implanted:Qty : 1 on 08/04/2024 by Jesus Manuel Newton MD at [facility] Cardiovascular Device N/A: Chest [employer] INC [id number] 05/24/2027 [id number] / / [id number] Clip Ligating Horizon Red 651390 - Csc - [id number] Implanted:Qty : 1 on 08/04/2024 by Jesus Manuel Newton MD at [facility] Clip N/A: Chest TELEFLEX INC [id number] 04/23/2029 057567 / / [id number] Clip Ligating Horizon Red 538200 - Csc - [id number] Implanted:Qty : 1 on 08/04/2024 by Jesus Manuel Newton MD at [facility] Clip N/A: Chest TELEFLEX INC [id number] 04/23/2029 982449 / / [id number] Clip Ligating Horizon Red 963680 - Csc - [id number] Implanted:Qty : 1 on 08/04/2024 by Jesus Manuel Newton MD at [facility] Clip N/A: Chest TELEFLEX INC [id number] 04/23/2029 602824 / / [id number] Clip Ligating Horizon Lrg Ti 10.07x12.38mm 789515 - Csc - [id number] Implanted:Qty : 1 on 08/06/2024 by Jesus Manuel Newton MD at [facility] Clip N/A: Neck TELEFLEX- WECK CLOSURE SYS 08/25/2028779318 / / [id number] Clip Ligating Horizon Lrg Ti 10.07x12.38mm 994979 - Csc - [id number] Implanted:Qty : 1 on 08/06/2024 by Jesus Manuel Newton MD at [facility] Clip N/A: Neck TELEFLEX- WECK CLOSURE SYS 08/25/2028 / / [id number] Dev Closure Angioseal 6fr Vip 288543 - [id number] Implanted:Qty : 1 on 02/04/2023 at [facility] Closure Device Left: Groin [facility] [employer] 11/22/2023 703310 / / [id number] Defib Icd [place] Xt Mri [id number] Df4 Dual Chmbr Surescan [id number] - [id number] Implanted:Qty : 1 on 02/11/2025 by Juarez Clements MD at [facility] Defibrillator Left: Chest Wall MEDTRONIC- CARD RHYTHM MGMT [id number] 05/21/2026 [id number] / [id number] / Graft Vasc Hemashield Gold Knit 909537 - [id number] Implanted:Qty : 1 on 08/04/2024 by Jesus Manuel Newton MD at [facility] Graft N/A: Chest [employer] INC [id number] 05/23/2028 [id number] / [id number] / [id number] Orthostat 2.0gm Os-201 - [id number] Implanted:Qty : 1 on 08/04/2024 by Jesus Manuel Newton MD at [facility] Hemostatic N/A: Chest ORTHOCON, INC [id number] 03/23/2027- Orthostat 2.0gm Os-201 - [id number] Implanted:Qty : 1 on 08/04/2024 by Jesus Manuel Newton MD at [facility] Hemostatic N/A: Chest ORTHOCON, INC [id number] 03/23/2027 OS- Lead Pacing Capsure Fix Novus 52cm [id number] - [facility] - [id number] Implanted:Qty : 1 on 02/11/2025 by Juarez Clements MD at [facility] Lead Left: Chest Wall [employer]- CRM - BULK BUY [id number] 11/06/2026 382749 / [id number] / Lead Sprint Quattro Secure 62cm [id number] - [facility] - [id number] Implanted:Qty : 1 on 02/11/2025 by Juarez Clements MD at [facility] Lead Left: Chest Wall [employer]- CRM - BULK BUY [id number] 12/03/2026 [id number] / [id number] 15V / Adh Bioglue 10ml Ju6078-4-Ht - [id number] Implanted:Qty : 1 on 08/04/2024 by Jesus Manuel Newton MD at [facility] Sealant N/A: Chest ARTIVION (FKA CRYOLIFE) [id number] 09/20/2025 OO6365- 5-US / / [id number] Stent Lifestent 5fr [id number] 135cm [id number] - [id number] Implanted:Qty : 1 on 02/04/2023 at [facility] Stent Right: Leg BARD HILDA VASC 02/02/2025 [id number] / / [id number] Plt Bone H Concave 6h Nst Lf Implanted:Qty : 1 on 08/04/2024 by Jesus Manuel Newton MD at [facility] N/A: Chest MIREYA BIOMET 115.602 .06 / / Plt Bone H Concave 6h Nst Lf Implanted:Qty : 1 on 08/04/2024 by Jesus Manuel Newton MD at [facility] N/A: Chest MIREYA BIOMET 115.602 .06 / / Sternalock Ez 16 Mm Screw Implanted:Qty : 1 on 08/04/2024 by Jesus Manuel Newton MD at [facility] N/A: Chest ZIMMERB IOMET-1 00.035. 16 / / Sternalock Ez 16 Mm Screw Implanted:Qty : 1 on 08/04/2024 by Jesus Manuel Newton MD at [facility] N/A: Chest ZIMMERB IOMET-1 00.035. 16 / / Sternalock Ez 16 Mm Screw Implanted:Qty : 1 on 08/04/2024 by Jesus Manuel Newton MD at [facility] N/A: Chest ZIMMERB IOMET-1 00.035. 16 / / Sternalock Ez 16 Mm Screw Implanted:Qty : 1 on 08/04/2024 by Jesus Manuel Newton MD at [facility] N/A: Chest ZIMMERB IOMET-1 00.035. 16 / / Sternalock Ez 16 Mm Screw Implanted:Qty : 1 on 08/04/2024 by Jesus Manuel Newton MD at [facility] N/A: Chest ZIMMERB IOMET-1 00.035. 16 / / Sternalock Ez 16 Mm Screw Implanted:Qty : 1 on 08/04/2024 by Jesus Manuel Newton MD at [facility] N/A: Chest ZIMMERB IOMET-1 00.035. 16 / / Sternalock Ez 16 Mm Screw Implanted:Qty : 1 on 08/04/2024 by Jesus Manuel eNwton MD at [facility] N/A: Chest ZIMMERB IOMET-1 00.035. 16 / / Sternalock Ez 16 Mm Screw Implanted:Qty : 1 on 08/04/2024 by Jesus Manuel Newton MD at [facility] N/A: Chest ZIMMERB IOMET-1 00.035. 16 / / Sternalock Ez 16 Mm Screw Implanted:Qty : 1 on 08/04/2024 by Jesus Manuel Newton MD at [facility] N/A: Chest ZIMMERB IOMET-1 00.035. 16 / / Sternalock Ez 16 Mm Screw Implanted:Qty : 1 on 08/04/2024 by Jesus Manuel Newton MD at [facility] N/A: Chest ZIMMERB IOMET-1 00.035. 16 / / Sternalock Ez 16 Mm Screw Implanted:Qty : 1 on 08/04/2024 by Jesus Manuel Newton MD at [facility] N/A: Chest ZIMMERB IOMET-1 00.035. 16 / / Screw Bone 18mm Lck Nst Lf Implanted:Qty : 1 on 08/04/2024 by Jesus Manuel Newton MD at [facility] N/A: Chest MIREYA BIOMET 100.035 .18 / / Screw Bone 18mm Lck Nst Lf Implanted:Qty : 1 on 08/04/2024 by Jesus Manuel Newton MD at [facility] N/A: Chest MIREYA BIOMET 100.035 .18 / / Screw Bone 18mm Lck Nst Lf Implanted:Qty : 1 on 08/04/2024 by Jesus Manuel Newton MD at [facility] N/A: Chest MIREYA BIOMET 100.035 .18 / / Screw Bone 18mm Lck Nst Lf Implanted:Qty : 1 on 08/04/2024 by Jesus Manuel Newton MD at [facility] N/A: Chest MIREYA BIOMET 100.035 .18 / / Screw Bone 18mm Lck Nst Lf Implanted:Qty : 1 on 08/04/2024 by Jesus Manuel Newton MD at [facility] N/A: Chest MIREYA BIOMET 100.035 .18 / / Screw Bone 18mm Lck Nst Lf Implanted:Qty : 1 on 08/04/2024 by Jesus Manuel Newton MD at [facility] N/A: Chest MIREYA BIOMET 100.035 .18 / / Screw Bone 16mm Lck Nst Lf Implanted:Qty : 1 on 08/04/2024 by Jesus Manuel Newton MD at [facility] N/A: Chest MIREYA BIOMET 100.035 .16 / / Procedures Procedure Name Priority Date/Time Associated Diagnosis Comments NE PROGRAM EVAL IMPLANT DEVICE,CARDVERT/DEF IB,2 LEAD WITHIN GLOBAL Routine 03/10/2025 2:03 PM CDT Sick sinus syndrome (CMS/HCC) Atrial fibrillation, unspecified type (CMS/HCC) Ischemic dilated cardiomyopathy (CMS/HCC) Automatic implantable cardioverter-defibrill ator in situ OCCULT BLOOD IMMUNOASSAY, COLORECTAL SCREEN Routine 11/13/2022 12:00 AM CDT Encounter for colorectal cancer screening from Last 3 Months or Most Recently Relevant to Health Maintenance Results * NE PROGRAM EVAL IMPLANT DEVICE,CARDVERT/DEFIB,2 LEAD WITHIN GLOBAL (03/10/2025 2:03 PM CDT) Narrative [facility] - 03/10/2025 2:03 PM CDT Elva [...] care, arm restrictions and recommended follow up. [employer] remote f/u reviewed. Enrolled in [employer]. Patient verbalized understanding of all instructions. F/U [...] incision care, arm restrictions and recommendedfollow up. [employer] remote f/u reviewed. Enrolled in [employer].Patient verbalized understanding of all instructions. F/U with EP officein 3 months. See attached report for details. us Juarez Clements MD CARDIAC SERVICES ORDERLorenza BLES Final Result [facility] [address] [facility] [place] [address] * OCCULT BLOOD IMMUNOASSAY, COLORECTAL SCREEN (11/13/2022 12:00 AM CDT) FECAL GLOBIN SEE NOTE [facility] [place] Comment: FECAL GLOBIN BY IMMUNOCHEMISTRY Micro Number: [id number] Test Status: Final Specimen Source: Stool Specimen Quality: Adequate Fecal Globin: Not Detected Test Performed at: [employer] [id number] [employer] [id number] Hussein Sherwood MD Stool STOOL SPECIMEN / Unknown 11/13/2022 11/26/2022 12:19 PM CDT us Kiya York OPERATIONS GENERAL AGENT BODY FLUIDS AND STOOLS Final Result [facility] [phone] [facility] [address] [employer] [phone] from Last 3 Months or Most Recently Relevant to Health Maintenance Insurance MEDICAID [place] Advance Directives For more information, please contact: [phone] * Full Code (Latest Code Status on [...]
--- OUTSIDE RECORDS SUMMARY | 2025-06-02 20:58 | XMS_ITS | Encounter Summary ---
Author Organization [employer] [email or web address] [facility] Address [address] [place] [address] Care Team Providers Care Data Integration Architect Name Role Phone Unavailable Primary Care Provider Unavailluis e Encounter Details Date Type Department Care Team (Latest Contact Info) Description 04/26/2005 Outpatient Historical [facility] [address] 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
--- OUTSIDE RECORDS SUMMARY | 2025-06-02 20:58 | XMS_ITS | Clinical Summary ---
Author Organization [facility] Address [address] [facility] [address] 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
[2025-06-02] MEDS: FUROsemide 10 mg/mL SDV 4mL 40 MG IVP (21:26)
[2025-06-02 22:08] LABS: Glucose Urine UA Negative (Normal); Nitrate Urine Negative (Negative); Specific Gravity, Urine 1.015 (1.005-1.030)
[2025-06-02 22:12] LABS: Add Urine Microscopic? YES
[2025-06-02 22:20] LABS: Procalcitonin 0.09 ng/mL (0-0.5)
[2025-06-02 22:24] LABS: UA Slide Review UA Slide Review Perf
[2025-06-03] VITALS (11 sets, daily range): BP systolic 104–115; BP diastolic 71–75; PULSE 74–78; RESP 21–32; O2SAT 90–99
--- NOTE | 2025-06-03 15:05 | DCPLANNER ---
messaged wound care
== END 2025-06-03 00:30 | disposition home or self-care (01) ==
PROVIDERS: Emergency Medicine; Emergency Provider Physician Assistant
DX: I11.0 Hypertensive heart disease with heart failure (principal); I50.23 Acute on chronic systolic (congestive) heart failure; J44.9 Chronic obstructive pulmonary disease, unspecified; I25.10 Atherosclerotic heart disease of native coronary artery without angina pectoris; Z95.1 Presence of aortocoronary bypass graft; F17.210 Nicotine dependence, cigarettes, uncomplicated; Z79.82 Long term (current) use of aspirin
CPT/HCPCS: 36415; 36600; 71045; 80051; 80053; 81001; 82330; 82805; 83880; 84145; 85025; 93005; 94640; 96374; 96375; 99285; J1938; J2919; J9999